=== PATIENT | male | born 1945 | race Caucasian/White ===

== ENCOUNTER → 2016-11-25 | Outpatient (CLI) | payer OTHER, BC ==
[~2016-11-25] MED LIST: ALLO300T2 PO; CHOL20009 PO; CMD75 PO; FENO48TA9 PO; FRRG PO; FURO40TA3 PO; HYDR-4716 PO; INSDGIPEN SC; INSU70IN2 SC; LEVO112T2 PO; LISI-789 PO; METO50TA16 PO; MULT-589 PO; NVLGI7030 SC; NVLGIPEN SC; OMEG10007 PO; RXC5 PO; SIMV40TA2 PO; WARF10TA4 PO; WARF5TAB7 PO
[2016-11-25 13:12] LABS: BLOOD UREA NITROGEN 28 mg/dl (7-18); BUN/CREATININE RATIO 14.7 (10-20); CALCIUM 10.1 mg/dl (8.5-10.1); CARBON DIOXIDE 27 mmol/L (21-32); CHLORIDE 104 mmol/L (98-107); GLUCOSE 227 mg/dl (70-99); POTASSIUM 4.1 mmol/L (3.5-5.1); SODIUM 139 mmol/L (136-145)
[2016-11-25 13:31] LABS: ESTIMATED AVERAGE GLUCOSE 318 mg/dl; HA1C FLAG Normal (Normal)
== END | disposition home or self-care (01) ==
LOC: C.LABSPEC 12:13
PROVIDERS: ATTEND Internal Medicine
DX: I25.10 Atherosclerotic heart disease of native coronary artery without angina pectoris (principal); N18.9 Chronic kidney disease, unspecified; E11.22 Type 2 diabetes mellitus with diabetic chronic kidney disease; E11.65 Type 2 diabetes mellitus with hyperglycemia; E03.9 Hypothyroidism, unspecified

== ENCOUNTER → 2016-12-02 | Day surgery (SDC) | payer OTHER, BC ==
[2016-11-20 10:09] VITALS: Ht 185.4 cm; Wt 115.9 kg
--- NOTE | 2016-11-30 20:20 | HISTORY & PHYSICAL EXAMINATION ---
DATE OF ADMISSION: 12/02/2016 HISTORY OF PRESENT ILLNESS: A 70-year-old male scheduled to undergo right cataract surgery on 12/02/2016 at [facility]. The patient was seen in the office for his preoperative evaluation on 11/25/2016. His medical problems include: 1. Coronary artery disease with history of acute myocardial infarction in August of 2008. At that time, he presented with a new left bundle branch block and class 4 congestive heart failure. He also had atrial fibrillation with rapid ventricular response. He was transferred to [facility]. After his condition was stabilized, he underwent a cardiac catheterization. There was no evidence of any occlusive coronary artery disease that required any intervention. The patient was noted to have marked cardiomyopathy with an ejection fraction on his cardiac catheterization between 25-30%. A biventricular ICD was placed. He was medically treated. 2. Ischemic cardiomyopathy. 3. Atrial fibrillation. 4. Type 2 diabetes mellitus. Uncontrolled. Hyperglycemia. Issue related to his dietary precautions and taking his insulin on a regular basis. 5. Chronic kidney disease. 6. Hyperlipidemia. 7. History of gout. CURRENT MEDICATIONS: Include: 1. Novolin insulin 70/30, the dose of his insulin was just increased on 11/27/2016 to 80 units in the morning and 60 units in the evening. 2. Levothyroxine 112 mcg daily. 3. Coumadin 10 mg daily. 4. Hydralazine 25 mg twice a day. 5. Allopurinol 300 mg daily. 6. Furosemide 40 mg daily. 7. Fenofibrate 48 mg daily. 8. Simvastatin 40 mg daily. 9. Metoprolol tartrate 50 mg daily. 10. Lisinopril 2.5 mg daily. 11. Vitamin D 2000 international units daily. 12. Fish oil 1200 mg twice a day. Overall, he was doing well. He denied any headache. No dizziness, no lightheadedness. Denied any earache, sore throat or neck pain. No chest pain, pressure or tightness. No shortness of breath. No cough, no sputum, no hemoptysis. Denied any abdominal pain. No nausea, no vomiting. No problem with his bowel movements. His colonoscopy is up to date. Denied any urinary problem. Denied any pain in his back or extremities. SOCIAL HISTORY: He is for 20 years. He stopped smoking about 30 years ago. He did smoke 1 pack per day for about 20 years prior to that. He stopped drinking any alcohol 30 years ago. Denied any excessive coffee, tea or soft drinks. He is retired. 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 FAMILY HISTORY: His mother in her early 60s, she was diabetic with multiple complications. His father at age 80. Had colon cancer. He had 5 sisters and 2 brothers. One sister at age 54, had breast cancer. One sister at age 54, had asthma in her sleep. Children alive and well. ALLERGIES: None. CURRENT MEDICATIONS: As noted above. PHYSICAL EXAMINATION: GENERAL: Well developed, in no acute distress. His weight was 255.2 pounds, height 72.5 inches, BMI 34.14. VITAL SIGNS: Blood pressure 124/74, pulse 68, temperature 98.4. SKIN: Warm and dry. No rash. HEENT: Decreased vision related to his cataract. Has dentures. NECK: Supple. Nontender. No adenopathy, no thyromegaly. No JVD. Normal carotid pulses. No bruit. CHEST: Pacer defibrillator in place. HEART: Regular heart sounds. No evident murmur, rub, or gallop. LUNGS: Clear. ABDOMEN: Soft, nontender, without organomegaly or masses. He does have an umbilical hernia. BACK: No spinal or CVA tenderness. EXTREMITIES: No edema, clubbing, or cyanosis. He does have varicose veins. Absent right dorsalis pedis pulse. The rest of his pedal pulses were normal. NEUROLOGIC: He is alert and oriented. There is no evidence of any lateralized deficit. LABORATORY TESTS: Just done on 11/25/2016. His fasting glucose was 227, BUN 28, creatinine 1.9. Sodium 139, potassium 4.1, chloride 104, CO2 27. TSH 3.53, free T4 1.008. His hemoglobin A1c was markedly elevated to 12.7, just when the dose of his insulin was increased. Electrocardiogram was done and showed only a paced rhythm. ASSESSMENT: 1. Preoperative evaluation. 2. Right cataract, scheduled for surgery on 12/02/2016. 3. Coronary artery disease. 4. Ischemic cardiomyopathy. 5. Atrial fibrillation. 6. Pacer defibrillator in place. 7. Arterial hypertension. 8. Chronic kidney disease. 9. Hyperlipidemia. 10. Hypothyroidism. 11. Chronic anticoagulation with Coumadin. PLAN: 1. The patient is to continue his medications. He was already instructed that he should continue his levothyroxine, metoprolol, and lisinopril, the morning of his surgery. I also asked him to take only 30 units of insulin in the morning of his surgery. 2. All his medications will be resumed home after his surgery. 3. He was instructed not to discontinue his Coumadin. 4. I will see him in the office as scheduled.
[~2016-12-02] VITALS: Ht 185.4 cm; Wt 115.9 kg
[~2016-12-02] MED LIST changes: +500ML BSS 0.3ML EPI 1:1000PF IRRIG ONE; +ACETAMINOPHEN 325 MG TAB PO PRN; +AMVISC PLUS 0.8ML SYRINGE INT OCU ONE; +APR/25 PO; +ATROPINE SULFATE 0.1 MG/ML 5ML SYR IV PRN; +BSS FLUSH ONE; +EpHEDrine SULFATE INJ 50 MG/ML AMP IV PRN; +EpINEphrine INJ 1MG/ML AMP 1 MG/ML AMP ONE; +FENTANYL CITRATE INJ 50 MCG/1 ML 2 ML VIAL IV PRN; +FLUMAZENIL 0.1 MG/1 ML 10 ML VIAL IV PRN; -HYDR-4716 PO; +HYDROmorphone INJ 2 MG/ML SYR/VIAL IV PRN; +LABETALOL HCL IV 5 MG/ML 20ML IV PRN; +LACTATED RINGER'S 1000ML 500 ML IV SCH; +LIDOCAINE 3.5% OPH GEL PER APPLICATION CHARGE ONE; +LIDOCAINE HCL 1% MPF 2 ML VIAL ONE; +MEPERIDINE HCL 25 MG/ML CARP IV PRN; +MIDAZOLAM HCL 1 MG/ML 2ML VIAL ONE; +NALOXONE HCL 0.4 MG/1 ML VIAL/CARP IV PRN; +OCUCOAT 1 ML SOLN IO ONE; +ONDANSETRON INJ 2 MG/ML 2 ML VIAL IV PRN; +PHENYLEPHRINE 100MCG/ML 5ML SYR IV PRN; +PHENYLEPHRINE HCL 10% OP SOLN PER DROP CHARGE OPR SCH; +POVIDONE-IODINE OP SOLN 30 ML BTL ONE; +PROPARACAINE 0.5% OP SOLN PER DROP CHARGE OPR SCH; +SODIUM CHLORIDE 0.9% 500ML IV SCH; +TOBRAMYCIN/DEXAMETHASONE OPH OINT PER APPLN CHARGE ONE
[2016-12-02] MEDS: PHENYLEPHRINE HCL 2.5% OP SOLN PER DROP CHARGE OPR SCH ×2 (06:36→06:41)
[2016-12-02] MEDS: TROPICAMIDE 1% OP SOLN PER DROP CHARGE OPR SCH ×2 (06:37→06:42)
[2016-12-02] MEDS: CYCLOPENTOLATE HCL 1% OP SOLN PER DROP CHARGE OPR SCH ×2 (06:38→06:43)
[2016-12-02] MEDS: KETOROLAC 0.5% OP SOLN PER DROP CHARGE OPR SCH ×2 (06:39→06:44)
[2016-12-02] MEDS: GATIFLOXACIN OP SOLN PER DROP CHARGE OPR SCH ×2 (06:40→06:50)
--- NOTE | 2016-12-02 07:00 | History & Physical Bridge - SC ---
H&P Re-Evaluation Bridge Note: I have examined the patient, reviewed the History & Physical and in the interval since the performance of the History & Physical I have noted the following changes of clinical significance: Diagnosis: Right Cataract Procedure: Right Cataract Removal with Lens Implant No changes noted
--- NOTE | 2016-12-02 07:23 | [facility] Operative Report ---
Operative Report 1. PREOPERATIVE DIAGNOSIS: Cataract of the right eye. 2. POSTOPERATIVE DIAGNOSIS: Same. 3. PROCEDURE: Phacoemulsification with intraocular lens implantation of the right eye. SURGEON: Dr. Alex Peguero. ANESTHESIA: Topical Lidocaine gel, 1% Non- Preserved intracameral Lidocaine, and monitored intravenous sedation. INDICATIONS FOR THE PROCEDURE: The patient is a 70 - year-old male with a history of cataract of the right eye causing significant visual impairment. The details of the proposed procedure were explained to the patient who asked appropriate questions and following discussion of all risks, benefits and alternatives agreed to have the procedure done. 4. OPERATION AND FINDINGS: DESCRIPTION OF PROCEDURE: After informed consent was obtained, the patient was brought to the Operating Room at the [facility]. The patient was placed in a supine position and then the right eye was prepped and draped in the usual sterile fashion for intraocular surgery. A drop of topical Lidocaine gel was placed in the operative eye. A wire lid speculum was then placed in the fornices. A corneal paracentesis was then created temporally. The Non-Preserved Lidocaine was then instilled into the anterior chamber. The anterior chamber was then pressurized with viscoelastic. A 2.0 mm clear corneal incision was then created temporally. A cystotome was inserted into the anterior chamber and used to create a tear in the anterior lens capsule. This capsular tear was then used to create a small flap and the flap was dragged in a counterclockwise direction in order to create a continuous curvilinear capsulorrhexis. Hydrodissection was accomplished with balanced salt solution. Phacoemulsification of the lens nucleus was then performed in a standard [id number] technique. The phaco time was 29 seconds with an average power of 13 %. The remaining cortical material was removed using irrigation aspiration. The capsular bag was then filled with viscoelastic. A [employer] MI60L +22.5 diopters lens was then loaded into the injector and injected into the capsular bag. The remaining viscoelastic was removed with the irrigation aspiration handpiece. The wound was hydrated and then checked and found to be watertight. The intraocular pressure was checked and found to be adequate. The wire lid speculum was removed and the patient's face was cleaned and dried. TobraDex ointment was placed in the inferior fornix. The patient was discharged to the Recovery Room having tolerated the procedure well. There were no complications. The patient will be seen tomorrow in the office for follow-up. I attest to the content of the Intraoperative Record and any orders documented therein. Any exceptions are noted below.
--- NOTE | 2016-12-02 07:23 | Discharge Instructions-SurgCtr ---
Discharge Instructions Visit Reason for Visit: Cataract Right Eye Discharge Discharge Diagnosis / Problem: cataract Discharge Goals Goal(s): Improve function Activity Recommendations Activity Limitations: per Instructions/Follow-up section Anesthesia . Post Anesthesia Instructions: If you have had General Anesthesia or IV Sedation: * Do not drive today. * Resume driving when surgeon permits. * Do not make important decisions or sign legal documents today. * Call surgeon for: 1. Temperature elevations greater than 101 degrees F. 2. Uncontrollable pain. 3. Excessive bleeding. 4. Persistent nausea and vomiting. 5. Medication intolerance (nausea, vomiting or rash). * For nausea and vomiting use only clear liquids such as: tea, soda, bouillon until nausea subsides, then gradually increase diet as tolerated. * If you have any concerns or questions, call your surgeon's office. If physician is unavailable and it is an emergency, call 911 or go to the nearest emergency room. . Instructions / Follow-Up Instructions / Follow-Up ACTIVITY RECOMMENDATIONS: * No strenuous lifting, jogging or running for 4 days * No swimming or yard work for 1 week. * Limited bending is permitted, such as putting on shoes. RETURN TO SCHOOL/WORK: No work until seen by physician in office. MEDICATIONS: Resume previous medications unless instructed otherwise by your surgeon. This includes eye drops for glaucoma. Zymaxid/Gatifloxacin (miller cap) - one drop every 2 hours until bedtime Nevanac/Ilevro/Prolensa/Ketorolac (burgos cap) - one drop every 4 hours until bedtime Prednisolone (white/pink cap, SHAKE WELL) - one drop every 2 hours until bedtime Starting tomorrow - all 3 drops every 4 hours until seen in the office Optive drops - as needed for discomfort SPECIAL CARE INSTRUCTIONS: * Wear eyeshield when sleeping, for four nights. * You may wear your own glasses or sunglasses while awake. * You may read or watch TV * You may shower and wash your face, but be gentle around the eye and pat dry. * Blurry vision and mild irritation are normal. * Call office if pain is more severe or vision becomes dark at . FOLLOW UP VISIT: Follow-up with Dr Peguero tomorrow. Diet Recommendations Home Diet: resume previous diet Procedures Procedures Performed: Right Cataract Phacoemulsification With Intraocular Lens Implant Pending Studies Studies pending at discharge: no Medical Emergencies . Who to Call and When: Medical Emergencies: If at any time you feel your situation is an emergency, please call 911 immediately. . Non-Emergent Contact Non-Emergency issues call your: Director Of Primary Care . . "Provider Documentation" section prepared by Alex Peguero.
--- NOTE | 2016-12-02 07:42 | Anesthesia Progress Nt - [facility] ---
Anesthesia Post Op Note Date & Time Dec 02, 2016 at 07:42 Vital Signs Pain Intensity: 0 Vital Signs Past 12 Hours Date Time Temp Pulse Resp B/P Pulse Ox O2 Delivery O2 Flow Rate FiO2 12/02/16 07:22 36.5 78 16 146/83 97 Room Air 12/02/16 06:18 36.7 79 20 151/85 97 Room Air Notes Mental Status: alert / awake / arousable, participated in evaluation Pt Amnestic to Procedure: Yes Nausea / Vomiting: adequately controlled Pain: adequately controlled Airway Patency, RR, SpO2: stable & adequate BP & HR: stable & adequate Hydration State: stable & adequate Anesthetic Complications: no major complications apparent
[2016-12-02 07:56] VITALS: BP 138/74; PULSE 72; O2SAT 94
== END | disposition home or self-care (01) ==
LOC: X.SURG 06:01
PROVIDERS: ATTEND Ophthalmology
DX: H26.9 Unspecified cataract (principal); I48.91 Unspecified atrial fibrillation; I50.9 Heart failure, unspecified; I25.2 Old myocardial infarction; E11.22 Type 2 diabetes mellitus with diabetic chronic kidney disease; N18.9 Chronic kidney disease, unspecified; E78.5 Hyperlipidemia, unspecified; E03.9 Hypothyroidism, unspecified; I25.10 Atherosclerotic heart disease of native coronary artery without angina pectoris; I25.5 Ischemic cardiomyopathy; Z95.810 Presence of automatic (implantable) cardiac defibrillator; Z98.41 Cataract extraction status, right eye; Z79.01 Long term (current) use of anticoagulants; Z79.4 Long term (current) use of insulin; Z87.891 Personal history of nicotine dependence; Z83.3 Family history of diabetes mellitus; Z80.0 Family history of malignant neoplasm of digestive organs; Z68.34 Body mass index [BMI] 34.0-34.9, adult

== ENCOUNTER → 2016-12-16 | Outpatient (CLI) | payer OTHER, BC ==
[~2016-12-16] MED LIST changes: -500ML BSS 0.3ML EPI 1:1000PF IRRIG ONE; -ACETAMINOPHEN 325 MG TAB PO PRN; -AMVISC PLUS 0.8ML SYRINGE INT OCU ONE; -ATROPINE SULFATE 0.1 MG/ML 5ML SYR IV PRN; -BSS FLUSH ONE; -EpHEDrine SULFATE INJ 50 MG/ML AMP IV PRN; -EpINEphrine INJ 1MG/ML AMP 1 MG/ML AMP ONE; -FENTANYL CITRATE INJ 50 MCG/1 ML 2 ML VIAL IV PRN; -FLUMAZENIL 0.1 MG/1 ML 10 ML VIAL IV PRN; -HYDROmorphone INJ 2 MG/ML SYR/VIAL IV PRN; -LABETALOL HCL IV 5 MG/ML 20ML IV PRN; -LACTATED RINGER'S 1000ML 500 ML IV SCH; -LIDOCAINE 3.5% OPH GEL PER APPLICATION CHARGE ONE; -LIDOCAINE HCL 1% MPF 2 ML VIAL ONE; -MEPERIDINE HCL 25 MG/ML CARP IV PRN; -MIDAZOLAM HCL 1 MG/ML 2ML VIAL ONE; -NALOXONE HCL 0.4 MG/1 ML VIAL/CARP IV PRN; -OCUCOAT 1 ML SOLN IO ONE; -ONDANSETRON INJ 2 MG/ML 2 ML VIAL IV PRN; -PHENYLEPHRINE 100MCG/ML 5ML SYR IV PRN; -PHENYLEPHRINE HCL 10% OP SOLN PER DROP CHARGE OPR SCH; -POVIDONE-IODINE OP SOLN 30 ML BTL ONE; -PROPARACAINE 0.5% OP SOLN PER DROP CHARGE OPR SCH; -SODIUM CHLORIDE 0.9% 500ML IV SCH; -TOBRAMYCIN/DEXAMETHASONE OPH OINT PER APPLN CHARGE ONE
[2016-12-16 13:21] LABS: INR 2.1 (0.9-1.1); PROTHROMBIN TIME (PATIENT) 23.2 SECONDS (9.0-12.0)
== END | disposition home or self-care (01) ==
LOC: C.LABSPEC 12:26
PROVIDERS: ATTEND Internal Medicine
DX: I48.91 Unspecified atrial fibrillation (principal)

== ENCOUNTER 2017-01-03 12:36 | Inpatient (IN) | payer OTHER, BC ==
[~2017-01-03] VITALS: Ht 188 cm; Wt 118.0 kg
[~2017-01-03 12:36] MED LIST changes: -CMD75 PO; -FRRG PO; -INSDGIPEN SC; -INSU70IN2 SC; -MULT-589 PO; -NVLGIPEN SC; -RXC5 PO; -WARF10TA4 PO
[2017-01-03] MEDS ORDERED: MoRPHine SULFATE 10 MG/ML CARP/VIAL IV PRN (13:00)
[2017-01-03] MEDS ORDERED: SODIUM CHLORIDE 0.9% 1000ML 2,000 ML IV ONE (13:00)
[2017-01-03] MEDS ORDERED: ONDANSETRON INJ 2 MG/ML 2 ML VIAL IV PRN (13:00)
[2017-01-03] MEDS ORDERED: PIPERACILLIN/TAZOBACTAM 4.5 GM/100ML D5W IV STA (13:27)
[2017-01-03] MEDS ORDERED: VANCOMYCIN 1GM/270ML NSS IV STA (13:27)
[2017-01-03 13:55] LABS: HEMATOCRIT 35.9 % (42-52); MEAN CELL VOLUME 90.7 fL (80-100); MEAN CORPUSCULAR HEMOGLOBIN 32.3 pg (25-34); MEAN CORPUSCULAR HGB CONC 35.7 g/dl (32-36); MEAN PLATELET VOLUME 10.6 fL (7.4-10.4); PLATELET COUNT 372 K/uL (130-400); RED BLOOD COUNT 3.96 M/uL (4.7-6.1); WHITE BLOOD COUNT 16.96 K/uL (4.8-10.8)
[2017-01-03 14:16] LABS: BASO % 0.1 %; BASO ABS # 0.02 K/uL (0-0.2); COMPLETE YES; EOS % 0.1 %; IG% 0.5 %; LYMPH % 9.5 %; LYMPH ABS # 1.61 K/uL (1.2-3.4); MONO % 4.4 %; NEUT % 85.4 %
[2017-01-03 14:22] LABS: PARTIAL THROMBOPLASTIN RATIO 3.1; PROTHROMBIN TIME (PATIENT) > 100.0 SECONDS (9.0-12.0)
--- NOTE | 2017-01-03 14:26 | DIAGNOSTIC IMAGING REPORT ---
TWO VIEW CHEST CLINICAL HISTORY: Gangrene of the right foot. FINDINGS: AP and lateral chest radiographs are compared to study dated 09/13/2008. The examination is degraded by apical lordotic positioning and patient rotation. A 3-lead cardiac AICD partially secures the left upper chest. This is new from 2007. The heart is enlarged and there is atherosclerotic calcification of the thoracic aorta. The pulmonary vasculature is noncongested. Chronic interstitial thickening is unchanged. No airspace consolidation or large pleural effusion is identified. There is no pneumothorax. The skeletal structures are osteopenic. Degenerative change is noted throughout the thoracic spine. IMPRESSION: 1. Cardiomegaly and AICD. There is no radiographic evidence of congestive failure. 2. No airspace consolidation or pleural effusion is identified. Electronically signed by: Lee Pakrer M.D. 01/03/2017 2:25 PM Dictated Date/Time: 01/03/2017 2:23 PM
--- NOTE | 2017-01-03 14:29 | DIAGNOSTIC IMAGING REPORT ---
RIGHT FOOT 3 VIEWS CLINICAL HISTORY: Gangrene of the first toe. FINDINGS: 3 views of the right foot are obtained. No prior studies are available for comparison at the time of dictation. The skeletal structures are osteopenic. There is destructive change/fracture through the midshaft of the first distal phalanx. There is bony erosion with small distracted fragments involving the tuft of the first distal phalanx. The appearance is consistent with osteomyelitis. No additional fracture is seen. Arthritic change is identified at the first metatarsophalangeal joint. There is soft tissue edema seen throughout the imaged right lower extremity. Numerous foci of subcutaneous gas are identified. There is advanced atherosclerotic calcification of the regional arteries. IMPRESSION: 1. Findings are consistent with osteomyelitis involving the tuft of the first distal phalanx. 2. There is fracture and fragmentation seen through the midshaft of the first distal phalanx. 3. No additional foci of acute bony abnormality are identified. 4. There is diffuse soft tissue edema throughout the imaged right foot and ankle with significant subcutaneous gas identified. This likely represents cellulitis with a gas forming organism. If there is clinical concern for necrotizing fasciitis then emergent surgical consultation is advised. Electronically signed by: Lee Parker M.D. 01/03/2017 2:28 PM Dictated Date/Time: 01/03/2017 2:26 PM
[2017-01-03 14:37] LABS: INR > 8.0 (0.9-1.1)
[2017-01-03 14:48] LABS: BUN/CREATININE RATIO 23.7 (10-20); CALCIUM 9.7 mg/dl (8.5-10.1); CREATININE 2.3 mg/dl (0.60-1.40); POTASSIUM 4.1 mmol/L (3.5-5.1)
[2017-01-03 14:51] LABS: ALB/GLOB RATIO 0.4 (0.9-2)
[2017-01-03] MEDS ORDERED: WARF10TA4 PO (15:01)
[2017-01-03] MEDS ORDERED: INSU70IN2 SC (15:01)
--- NOTE | 2017-01-03 15:13 | EMERGENCY ROOM VISIT NOTE ---
History Report prepared by Damari: Gina Arevalo Under the Supervision of: Dr. Félix Parnell M.D. First contact with patient: 12:52 Chief Complaint: FOOT PAIN Stated Complaint: R FOOT PAIN History of Present Illness The patient is a 71 year old male who presents to the Emergency Room with complaints of worsening infection to his right foot that began one month ago. He currently rates his discomfort as an 8/10 in severity. 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 He states that he takes 80 units of insulin in the morning and 60 units of insulin in the evening. The patient states that he monitors his blood glucose closely, but his glucose levels have been elevated recently in the 200-300 mg/dL. He states that he first noticed a small area to his right great toe one month ago. The patient states that the area has been worsening, but he states that he thought he could manage it on his own. He notes pain, erythema, and edema to the area and numbness to his right great toe. He denies any history of neuropathy in his feet. The patient states that he has also been experiencing fever and chills occasionally for the past month and a decrease in appetite. He states that he has had difficulty ambulating secondary to the pain. He denies any abdominal pain, urinary symptoms, or abnormal bowel movements. Source of History: patient Onset: one month ago Position: foot (right) Symptom Intensity: 8/10 Quality: other (infection) Timing: worsening Associated Symptoms: + chills, + fevers, + numbness (right great toe) Note: Associated Symptoms: pain, swelling, and erythema to right foot. Review of Systems All systems have been listed, reviewed, and are negative other than those previously mentioned. Please see Additional Medical History Sheet. Past Medical & Surgical Medical Problems: (1) BILAT.PULM.EMBOLI, DM2 (2) Diabetes (3) Heart disease (4) Hypertension (5) Kidney disease Family History No pertinent family history. Social History Smoking Status: Never Smoker Smokeless Tobacco Use: No Marital Status: Housing Status: lives alone Occupation Status: retired Current/Historical Medications Scheduled Allopurinol (Zyloprim), 300 MG PO QAM Cholecalciferol (Vitamin D), 1 TAB PO QAM Fenofibrate (Tricor), 48 MG PO QAM Fish Oil ([place]-3), 1 CAP PO BID Furosemide (Lasix), 40 MG PO QAM Hydralazine HCl (Hydralazine HCl), 1 TAB PO BID Insulin Human Isophan/Regular (Novolin 70/30), 80 UNITS SC QAM Levothyroxine Sodium (Synthroid), 112 MCG PO QAM Lisinopril (Zestril), 1 TAB PO QAM Metoprolol Tartrate (Lopressor) (Lopressor), 50 MG PO BID Simvastatin (Zocor), 40 MG PO QAM Warfarin Sod (Jantoven), 10 MG PO DAILY Allergies Coded Allergies: No Known Allergies (Verified , 01/03/17) Physical Exam Vital Signs Date Time Temp Pulse Resp B/P Pulse Ox O2 Delivery O2 Flow Rate FiO2 01/03/17 16:29 107 20 161/86 91 Room Air 01/03/17 14:35 105 25 156/68 94 Room Air 01/03/17 13:31 109 01/03/17 13:12 93 Room Air 01/03/17 12:40 37.8 111 20 140/85 95 Room Air Physical Exam GENERAL: Patient awake, alert, oriented x 3. Patient follows commands. Patient does not appear toxic. Patient is adequately hydrated and well- nourished. SKIN: No erythema, pallor, cyanosis or rash HEENT: Normal head, pupils equal, reactive to light and accommodation. Mucous membranes are dry. Neck: Without adenopathy, no neck vein distention. LUNGS: Clear to auscultation. No wheezes, no rales, no rhonchi. HEART: Irregularly irregular rate without murmurs. ABDOMEN: No masses, no rebound, no hepatomegaly or splenomegaly. EXTREMITIES: Marked erythema of right foot. Gangrenous change to the right distal great toe. Malodorous smell. NEUROLOGIC: Decreased sensation to right great toe. Cranial nerves II-XII within normal limits. No gross motor function deficits. Medical Decision & Procedures ER Provider Diagnostic Interpretation: X ray results are stated below per my interpretation and the radiologist's interpretation. RIGHT FOOT 3 VIEWS CLINICAL HISTORY: Gangrene of the first toe. FINDINGS: 3 views of the right foot are obtained. No prior studies are available for comparison at the time of dictation. The skeletal structures are osteopenic. There is destructive change/fracture through the midshaft of the first distal phalanx. There is bony erosion with small distracted fragments involving the tuft of the first distal phalanx. The appearance is consistent with osteomyelitis. No additional fracture is seen. Arthritic change is identified at the first metatarsophalangeal joint. There is soft tissue edema seen throughout the imaged right lower extremity. Numerous foci of subcutaneous gas are identified. There is advanced atherosclerotic calcification of the regional arteries. IMPRESSION: 1. Findings are consistent with osteomyelitis involving the tuft of the first distal phalanx. 2. There is fracture and fragmentation seen through the midshaft of the first distal phalanx. 3. No additional foci of acute bony abnormality are identified. 4. There is diffuse soft tissue edema throughout the imaged right foot and ankle with significant subcutaneous gas identified. This likely represents cellulitis with a gas forming organism. If there is clinical concern for necrotizing fasciitis then emergent surgical consultation is advised. Electronically signed by: Lee Parker M.D. 01/03/2017 2:28 PM Dictated Date/Time: 01/03/2017 2:26 PM TWO VIEW CHEST CLINICAL HISTORY: Gangrene of the right foot. FINDINGS: AP and lateral chest radiographs are compared to study dated 09/13/2008. The examination is degraded by apical lordotic positioning and patient rotation. A 3-lead cardiac AICD partially secures the left upper chest. This is new from 2007. The heart is enlarged and there is atherosclerotic calcification of the thoracic aorta. The pulmonary vasculature is noncongested. Chronic interstitial thickening is unchanged. No airspace consolidation or large pleural effusion is identified. There is no pneumothorax. The skeletal structures are osteopenic. Degenerative change is noted throughout the thoracic spine. IMPRESSION: 1. Cardiomegaly and AICD. There is no radiographic evidence of congestive failure. 2. No airspace consolidation or pleural effusion is identified. Electronically signed by: Lee Parker M.D. 01/03/2017 2:25 PM Dictated Date/Time: 01/03/2017 2:23 PM Laboratory Results 01/03/17 13:44 Red Blood Count 3.96, Mean Corpuscular Volume 90.7, Mean Corpuscular Hemoglobin 32.3, Mean Corpuscular Hemoglobin Concent 35.7, Mean Platelet Volume 10.6, Neutrophils (%) (Auto) 85.4, Lymphocytes (%) (Auto) 9.5, Monocytes (%) (Auto) 4.4, Eosinophils (%) (Auto) 0.1, Basophils (%) (Auto) 0.1, Neutrophils # (Auto) 14.48, Lymphocytes # (Auto) 1.61, Monocytes # (Auto) 0.74, Eosinophils # (Auto) 0.02, Basophils # (Auto) 0.02 01/03/17 13:44 Test 01/03/17 13:44 White Blood Count 16.96 K/uL (4.8-10.8) Red Blood Count 3.96 M/uL (4.7-6.1) Hemoglobin 12.8 g/dL (14.0-18.0) Hematocrit 35.9 % (42-52) Mean Corpuscular Volume 90.7 fL (80-100) Mean Corpuscular Hemoglobin 32.3 pg (25-34) Mean Corpuscular Hemoglobin Concent 35.7 g/dl (32-36) Platelet Count 372 K/uL (130-400) Mean Platelet Volume 10.6 fL (7.4-10.4) Neutrophils (%) (Auto) 85.4 % Lymphocytes (%) (Auto) 9.5 % Monocytes (%) (Auto) 4.4 % Eosinophils (%) (Auto) 0.1 % Basophils (%) (Auto) 0.1 % Neutrophils # (Auto) 14.48 K/uL (1.4-6.5) Lymphocytes # (Auto) 1.61 K/uL (1.2-3.4) Monocytes # (Auto) 0.74 K/uL (0.11-0.59) Eosinophils # (Auto) 0.02 K/uL (0-0.5) Basophils # (Auto) 0.02 K/uL (0-0.2) RDW Standard Deviation 44.9 fL (36.4-46.3) RDW Coefficient of Variation 14.4 % (11.5-14.5) Immature Granulocyte % (Auto) 0.5 % Immature Granulocyte # (Auto) 0.09 K/uL (0.00-0.02) Prothrombin Time > 100.0 SECONDS Prothromb Time International Ratio > 8.0 (0.9-1.1) Activated Partial Thromboplast Time 80.8 SECONDS (21.0-31.0) Partial Thromboplastin Ratio 3.1 Anion Gap 13.0 mmol/L (3-11) Est Creatinine Clear Calc Drug Dose 40.2 ml/min Estimated GFR () 31.9 Estimated GFR (Non- 27.5 BUN/Creatinine Ratio 23.7 (10-20) Lactic Acid Level 1.3 mmol/L (0.4-2.0) Calcium Level 9.7 mg/dl (8.5-10.1) Total Bilirubin 0.4 mg/dl (0.2-1) Aspartate Amino Transf (AST/SGOT) 48 U/L (15-37) Alanine Aminotransferase (ALT/SGPT) 62 U/L (12-78) Alkaline Phosphatase 128 U/L (45-117) Total Protein 8.2 gm/dl (6.4-8.2) Albumin 2.4 gm/dl (3.4-5.0) Globulin 5.8 gm/dl (2.5-4.0) Albumin/Globulin Ratio 0.4 (0.9-2) Medications Administered Medications (Trade) Dose Ordered Sig/Natali Route Start Time Stop Time Status Last Admin Dose Admin Sodium Chloride (Nss 1000ml) 2,000 ml @ 999 mls/hr Q2H1M ONCE IV 01/03/17 13:00 01/03/17 15:00 DC 01/03/17 13:40 999 MLS/HR Morphine Sulfate (MoRPHine SULFATE INJ) 8 mg PRN PRN IV 01/03/17 13:00 01/17/17 12:59 01/03/17 13:41 8 MG Ondansetron HCl (Zofran Inj) 4 mg Q4H PRN IV 01/03/17 13:00 02/02/17 12:59 01/03/17 13:41 4 MG Vancomycin HCl (Vancomycin 1gm/ 270ml Nss) 1 gm NOW STAT IV 01/03/17 13:27 01/03/17 13:29 DC 01/03/17 14:46 1 GM Piperacillin Sod/ Tazobactam Sod (Zosyn Iv) 4.5 gm NOW STAT IV 01/03/17 13:27 01/03/17 13:29 DC 01/03/17 13:46 4.5 GM ECG Indication: other (infection) Rate (beats per minute): 124 Rhythm: other (ventricular paced) Findings: no acute ischemic change, no ectopy ED Course 1252: Past medical records reviewed. The patient was evaluated in room B5. A complete history and physical examination was performed. 1300: Ordered Zofran Inj 4 mg IV, Morphine Sulfate 8 mg IV, Sodium Chloride 2000 ml @ 999 mls/hr IV. 1327: Ordered Zosyn IV 4.5 gm IV, Vancomycin HCl 1 gm IV. 1506: After I reviewed the X-ray, I discussed the patient's case with the pharmacist. They state that the patient should be placed on Clindamycin in addition to his current antibiotics. 1515: Ordered Clindamycin Phosphate 900 mg/Dextrose 106 ml @ 100 mls/hr IV. 1523: I discussed the patients case with Dr. Shilpa Carvajal, Internal Medicine. He is going to evaluate the patient for further treatment. Medical Decision Nurses notes reviewed. Medical history sheet reviewed. Differential diagnosis includes but is not limited to: gangrene, cellulitis, diabetes out of control, dehydration, sepsis. Multiple labs come imaging and EKG were obtained. Please see above. Blood cultures are pending. The patient's white count is elevated. Blood sugar is elevated. His INR is markedly elevated. X-ray reveals gas and osteomyelitis on his foot. Lactic acid is not elevated. The patient has severe cellulitis with gangrenous findings at the end of his right great toe. The patient was started on Zosyn, vancomycin and clindamycin after cultures were obtained. I discussed care with Dr. Keller over the phone. I also discussed care with the patient and his . Consults Time Called: 1510 Consulting Physician: Dr. Shilpa Garrido, Internal Medicine Returned Call: 1523 I discussed the patients case with Dr. Shilpa Carvajal, Internal Medicine. He is going to evaluate the patient for further treatment. Impression Primary Impression: Cellulitis Additional Impressions: Diabetes mellitus out of control Warfarin-induced coagulopathy Renal insufficiency Osteomyelitis Scribe Attestation The scribe's documentation has been prepared under my direction and personally reviewed by me in its entirety. I confirm that the note above accurately reflects all work, treatment, procedures, and medical decision making performed by me. Departure Information Dispostion Being Evaluated By Hospitalist Referrals Aaron Peña M.D. (PCP) Problem Qualifiers
[2017-01-03] MEDS ORDERED: PHYTONADIONE INJ 5 MG in SODIUM CHLORIDE 0.9% 50ML 50 ML IV SCH (16:15)
[2017-01-03 17:14] LABS: MAGNESIUM 2.4 mg/dl (1.8-2.4)
[2017-01-03] MEDS ORDERED: ONDANSETRON INJ 8 MG in DEXTROSE 5% 50ML 50 ML IV PRN (17:15)
[2017-01-03] MEDS: SODIUM CHLORIDE 0.9% 1000ML 1,000 ML IV SCH (17:15)
[2017-01-03] MEDS ORDERED: VANCOMYCIN CONSULT ACTIVE PRN (17:30)
[2017-01-03] MEDS ORDERED: GLUCAGON FOR INJ 1 MG VIAL SQ PRN (17:30)
[2017-01-03] MEDS ORDERED: DEXTROSE 50% 50 ML SYR IV PRN (17:30)
[2017-01-03] MEDS ORDERED: PIPERACILL/TAZOBAC CONSULT ACTIVE PRN (17:30)
[2017-01-03] MEDS ORDERED: CLINDAMYCIN CONSULT ACTIVE PRN ×2 (17:30)
[2017-01-03] MEDS ORDERED: GLUCOSE 40% GEL 15 GM TUBE PO PRN (17:30)
[2017-01-03] MEDS ORDERED: GLUCOSE 10 TABS/TUBE PO PRN (17:30)
[2017-01-03] MEDS: CLINDAMYCIN IV 900 MG in DEXTROSE 5% ADD-VANTAGE 100ML 100 ML IV ONE ×2 (17:37→17:41)
[2017-01-03] MEDS ORDERED: VANCOMYCIN INJ 1,500 MG in SODIUM CHLORIDE 0.9% 500ML 500 ML IV SCH (20:00)
--- NOTE | 2017-01-03 20:09 | Pharmacy Progress Note ---
Pharmacy Antibiotic Consult Date of Service: Jan 03, 2017. Pharmacy Dosing Scope Pharmacy is consulted to initiate vancomycin, piperacillin/tazobactam, and clindamycin IV dosing therapy, order appropriate labs and adjust drug dose/ frequency. Subjective The patient is a 71 year old male admitted on Jan 03, 2017 at 17:02. Objective Height (Feet): 6 Height (Inches): 2.00 Weight (Kilograms): 118.000 Lab Results (24hrs): Laboratory Tests Test 01/03/17 13:44 BUN/Creatinine Ratio 23.7 Blood Urea Nitrogen 55 mg/dl Creatinine 2.30 mg/dl White Blood Count 16.96 K/uL Red Blood Count 3.96 M/uL Hemoglobin 12.8 g/dL Hematocrit 35.9 % Mean Corpuscular Volume 90.7 fL Mean Corpuscular Hemoglobin 32.3 pg Mean Corpuscular Hemoglobin Concent 35.7 g/dl Platelet Count 372 K/uL Mean Platelet Volume 10.6 fL Neutrophils (%) (Auto) 85.4 % Lymphocytes (%) (Auto) 9.5 % Monocytes (%) (Auto) 4.4 % Eosinophils (%) (Auto) 0.1 % Basophils (%) (Auto) 0.1 % Neutrophils # (Auto) 14.48 K/uL Lymphocytes # (Auto) 1.61 K/uL Monocytes # (Auto) 0.74 K/uL Eosinophils # (Auto) 0.02 K/uL Basophils # (Auto) 0.02 K/uL Micro Results: Item Value Date Time Blood Culture Received 01/03/17 1325 Blood Pending Blood Culture Received 01/03/17 1344 Blood Pending Assessment & Plan Assessment: * 71 y/o with uncontrolled diabetes presents with complains of a right toe wound for the psat month prior to admission. * Upon examination, foot X-ray reveals osteomyelitis involving the distal phalanx as well as cellulitis with gas forming organism * will treat for both skin/skin structure infection as well as possible necrotizing fascitis with broad-spectrum antibiotics * History of CKD - unsure of baseline creatinine Plan: * Treat with broad-spectrum antibiotics with * MRSA coverage (vancomycin) * Gram-negative/anaerobic coverage (piperacillin/tazobactam) * Anti-toxin coverage (clindamycin) Vancomycin: * Loading dose: 1000 mg IV X 1 dose (given in ED ~1445) * Give additional 1500 mg IV X 1 in addition to dose in ED to ~21mg/kg loading dose * Maintenance dose: to be determined based on SCr tomorrow AM * Goal trough level ~15-20mcg/mL Piperacillin/tazobactam: * Loading dose: 4.5 g IV x1 dose in ED (30 minute infusion) * Maintenance dose: 3.375 g IV every 8 hours (4 hour infusion) * no dose adjustment for CrCl above 20mL/min Clindamycin: * Loading dose: 900 mg IV x1 dose in ED * Maintenance dose: 900 mg IV every 8 hours x 48 hours for anti-toxin effect * no dose adjustment for CrCl Pharmacy will continue to follow and will adjust dose/frequency as necessary. Thank you
[2017-01-03 20:13] VITALS: BP 120/88; PULSE 92; TEMP 36.7; BMI 33.4
[2017-01-03] MEDS: PIPERACILL/TAZOBAC IV 3.375 GM in DEXTROSE 5% 100ML IV SCH (20:39)
[2017-01-03] MEDS: METOPROLOL TARTRATE 50 MG TAB PO SCH (20:43)
[2017-01-03] MEDS: INSULIN GLARGINE SOLOSTAR 100 UNITS/ML 3 ML PEN SC SCH (20:52)
[2017-01-03] MEDS: INSULIN ASPART 100 UNITS/ML 3 ML PEN SC SCH (20:56)
[2017-01-03 22:44] VITALS: O2SAT 93
--- NOTE | 2017-01-03 22:45 | DIAGNOSTIC IMAGING REPORT ---
ULTRASOUND RIGHT LOWER EXTREMITY ARTERIAL CLINICAL HISTORY: Gangrene of the right foot. COMPARISON STUDY: No priors. TECHNIQUE: Real-time, grayscale, and color Doppler sonography of the arteries of the right lower extremities performed from the inguinal crease to the foot. Ankle-brachial indices could not be assessed. The dorsalis pedis and posterior tibial arteries were noncompressible. Toe pressures could not be obtained. FINDINGS: Atherosclerotic plaque and irregularity are seen throughout the arteries of the right lower extremity. There are triphasic waveforms in the right common femoral artery with velocities measuring up to 102 cm/s. There are biphasic to triphasic waveforms throughout the right superficial femoral artery with velocities measuring up to 145 cm/s. The profunda femoris artery is patent with velocities measuring up to 80 cm/s. There are biphasic waveforms in the popliteal artery with velocities measuring up to 90 cm/s. There is 3-vessel runoff to the foot. There may be segmental occlusion of the peroneal artery, which is patent at the calf. Mildly elevated velocities are seen within the posterior tibial artery which measure up to 152 cm/s. Elevated velocities are also seen in the peroneal artery which measure up to 195 cm/s. Velocities in the anterior tibial artery measure up to 150 cm/s. Segments of the dorsalis pedis artery appear patent with velocities measuring up to 62 cm/s. IMPRESSION: 1. Peripheral vascular disease as above. 2. Elevated velocities are seen within all 3 calf vessels suggesting some degree of stenosis. 3. There may be segmental occlusions within the peroneal artery and the dorsalis pedis artery. 4. Ankle-brachial indices could not be calculated. Dictated: 01/03/2017 10:07 PM Transcribed: 01/03/2017 10:44 PM [email or web address] Electronically signed by: Lee Parker M.D. 01/03/2017 10:46 PM Dictated Date/Time: 01/03/2017 10:07 PM
[2017-01-03 23:05] VITALS: BP 147/80; PULSE 89; TEMP 36.9; O2SAT 94
[2017-01-03 23:06] LABS: MANUAL MICROSCOPIC REQUIRED? YES; URINE APPEARANCE SL CLOUDY (CLEAR); URINE BILIRUBIN NEG (NEG); URINE COLOR YELLOW; URINE NITRITE NEG (NEG); URINE PH 5.5 (4.5-7.5); URINE SPECIFIC GRAVITY 1.025 (1.000-1.030); UROBILINOGEN NEG (NEG)
[2017-01-03 23:07] LABS: REVIEW REQ? NO
[2017-01-03 23:28] LABS: URINE AMORPHOUS SEDIMENT PRESENT (NONE PRSENT); URINE BACTERIA 1+ (NEG)
[2017-01-03 23:29] LABS: URINE MUCUS PRESENT (NONE PRSENT); ZZUR CULT IF INDIC CLEAN CATCH YES
[2017-01-04] VITALS (14 sets, daily range): BP systolic 122–160; BP diastolic 67–94; PULSE 70–101; TEMP 36.6–38.3; O2SAT 90–98
[2017-01-04] MEDS: ACETAMINOPHEN 325 MG TAB PO PRN ×4 (00:05→23:40)
[2017-01-04] MEDS: CLINDAMYCIN IV 900 MG in DEXTROSE 5% ADD-VANTAGE 100ML 100 ML IV SCH ×3 (01:43→19:06)
--- NOTE | 2017-01-04 03:39 | HISTORY & PHYSICAL EXAMINATION ---
DATE OF ADMISSION: 01/03/2017 SUBJECTIVE: A 71-year-old male admitted through the Emergency Room with gangrene of his right first toe and right foot with marked cellulitis. HISTORY OF PRESENT ILLNESS: The patient with multiple medical problems including coronary artery disease, cardiomyopathy, atrial fibrillation and has a biventricular ICD and ischemic cardiomyopathy. He is diabetic. He is on insulin. He does have chronic kidney disease and hyperlipidemia. He also has a history of gout. The patient presented to the Emergency Room today complaining of severe pain in his right foot. He stated that the problem started about 4 weeks ago. He started developing pain and gradually developed seepage from his right first toe. Lately, he stated that drainage from his toe has really been very foul smelling. He has been trying to take care of it at home. He never mentioned it to the office. He thought that he could take care of it by himself. He has been rinsing it and applying a cream that he has at home. I am not really sure which one, but his symptoms have been gradually progressive. The last few days, he has not been eating or drinking and he was having severe pain, unable to walk. He noted severe drainage from his right first toe and swelling and redness of his entire foot going up to the lower third of his right lower leg. This is extremely surprising that he gets to this point with his obvious problem and the pain that he has been having the foul smelling discharge. The way he is feeling in general weak and tired and sweating and feverish. Usually the patient stops in the office at least 2-3 times a week. In the morning, the office opens at 8:30, he is usually there before that and waits until the office is opened because he has a question about the medication or he needs a refill or he has a question about his insurance coverage, so he has been in the office on multiple occasions over the last 3-4 weeks, but unfortunately he never mentioned that he had a problem to this magnitude. When I asked him why he did not mention it, he said because he was stubborn and he was going to take care of it by himself. This is the same story with his diabetes. Actually, his diabetes has never been controlled. Over many years now, his hemoglobin A1c was markedly elevated. He is not compliant with his medications. He has cut down the dose, stopped taking his insulin. The issue is with the cause of his insulin. We have tried multiple approaches to that problem but the cause could not be reduced beyond a certain point. We have given him samples from the office whenever we had them available, but unfortunately his compliance is not really to his favor and his last hemoglobin A1c was over 12%. The patient was seen in the Emergency Room by Dr. Parnell. He was noted to have severe gangrene of his right first toe. He was started on IV antibiotics with triple antibiotics including vancomycin, Zosyn and clindamycin. I saw the patient in the Emergency Room. He was admitted for further treatment. PAST MEDICAL HISTORY: 1. Coronary artery disease. He had an acute myocardial infarction in August of 2008. He presented to the new bundle branch block and a class 4 congestive heart failure. He also had atrial fibrillation with rapid ventricular response. He was transferred to [facility]. He underwent a cardiac catheterization once he was stable. He did not have any inclusive of coronary artery disease that required any intervention. He was noted to have an ischemic cardiomyopathy with an ejection fraction between 20 and 30%. A biventricular ICD was placed. He is chronically anticoagulated with Coumadin. His last INR was 2.1 about 2-1/2 weeks ago. 2. Ischemic cardiomyopathy. 3. Atrial fibrillation. 4. Type 2 diabetes mellitus. Uncontrolled. Compliance with medications and diet has been the major issue. 5. Chronic kidney disease. 6. Hyperlipidemia. 7. History of gout. SOCIAL HISTORY: He is for about 20 years. He stopped smoking about 30 years ago. He did smoke 1 pack per day for about 20 years. He stopped drinking alcohol about 30 years ago; he did drink excessively prior to that. No excessive coffee, tea or soft drinks. He is retired. 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 FAMILY HISTORY: His mother in her early 60s was diabetic with multiple complications. His father at age 80, had colon cancer. He has 5 sisters and 2 brothers. One sister had breast cancer at age 54; one sister at age 54, had asthma, and in her sleep. His children are alive and well. ALLERGIES: None. MEDICATIONS ON ADMISSION: All as noted on his home medication list. REVIEW OF SYSTEMS: He is quite uncomfortable because of the pain from his foot. He has been feeling feverish, sweating. Feeling nauseous. Poor appetite. He denied any headache. No dizziness. No chest pain or shortness of breath. No abdominal pain, no nausea, no vomiting. No problem with his bowel movements. No problem urinating. No back pain. Severe pain in his right lower leg and foot. PHYSICAL EXAMINATION: GENERAL: Well developed in no distress. His weight is 118 kg, height 188 cm, BMI 33.4. VITAL SIGNS: On arrival to the Emergency Room, his blood pressure was 140/85, pulse 111, respirations 20, temperature 37.8, oxygen saturation 95% on room air. SKIN: Warm and dry. No rash. HEENT: He is status post right cataract surgery done in November of this year. NECK: Supple. Nontender. No adenopathy, no thyromegaly. No JVD. Normal carotid pulses. No bruit. CHEST: Pacer defibrillator in place. HEART: Regular heart sounds. Monitor showing paced rhythm. No evident murmur, rub, or gallop. LUNGS: Clear. ABDOMEN: Soft, nontender, without organomegaly or masses. BACK: No spinal tenderness. EXTREMITIES: He has severe gangrene of his right first toe. He also has severe cellulitis of his right foot and the lower third of his right lower leg. He does have crepitation in his foot and around his toe. He does have good pedal pulses on the left side. He has good posterior tibialis pulse on the right side, but dorsalis pedis pulse on the right side is absent. NEUROLOGIC: He is alert and oriented. No evidence of any motor deficit. He does have evidence of peripheral neuropathy. LABORATORY TESTS: WBC count 16,960, hemoglobin 12.8, hematocrit 35.9, and platelet count 372,000. His prothrombin time was over 100 with an INR over 8. Sodium 132, potassium 4.1, chloride 97, CO2 22, BUN 55, creatinine 2.3, glucose 237. Lactic acid 1.3, calcium 9.7, magnesium 2.4, total bilirubin 0.4, AST 48, ALT 62, alkaline phosphatase 128, albumin 2.4. His electrocardiogram showed a paced rhythm. IMAGING STUDIES: Included an x-ray of his right foot. It showed evidence of osteomyelitis involving the tuft of his first the distal phalanx. There is a fracture and fragmentation seen through the mid shaft of the first distal phalanx. There is diffuse soft tissue edema throughout the imaged right foot and ankle with diffuse subcutaneous gas identification. His chest x-ray showed evidence of cardiomegaly. ICD in place. ASSESSMENT: 1. Gangrene, right first toe with osteomyelitis. 2. Severe cellulitis of the entire right foot and his right lower leg lower third. 3. Type 2 diabetes mellitus, not controlled. 4. Coronary artery disease. 5. Atrial fibrillation. 6. Hypercholesterolemia. 7. Chronic kidney disease. 8. History of gout. 9. Major compliance problem. PLAN: 1. The patient was admitted to medical bed. Resuscitation level 1. All his laboratory tests were ordered. An arterial Doppler of his right leg was ordered. He was started on antibiotics as noted above. Placed on sliding scale coverage for his diabetes. The plan at this time is to start treating his infection. Orthopedic consultation was requested. I expect that he will need amputation at least of his first toe, hoping that the treatment with IV antibiotic will help with the cellulitis and see what the extent of the damage is after that, but judging from the x-ray and the appearance of his foot and that bloody foul smelling discharge from his right toe, he will at least end up with an amputation of the right first toe. It is really surprising that he did let things go that far without mentioning. As noted, he is usually in the office multiple times a week for different questions and different issues. He thought that he could take care of this problem on his own. As noted above, there is always a problem with major issue related to his compliance and his insulin medication and compliance with taking it on a regular basis. I have looked up his hemoglobin A1c since at least 2010 and it really has never been in any range even close to being under control. His hemoglobin A1c has been as high as 12.9. It has been elevated for at least the last 8 years. I spoke with the patient, explained to him the findings and explained to him what needs to be done. His sister was also present with him in the Emergency Room.
[2017-01-04] MEDS: PIPERACILL/TAZOBAC IV 3.375 GM in DEXTROSE 5% 100ML IV SCH ×3 (04:06→20:28)
[2017-01-04] MEDS: SODIUM CHLORIDE 0.9% 1000ML 1,000 ML IV SCH ×3 (04:06→23:41)
[2017-01-04] MEDS: LEVOTHYROXINE 112 MCG TAB PO SCH (05:40)
[2017-01-04] MEDS ORDERED: DIPHTHERIA/TETANUS/PERTUSSIS 0.5 ML SYR/VIAL IM. ONE (06:30)
[2017-01-04 06:31] LABS: BASO % 0.1 %; BASO ABS # 0.01 K/uL (0-0.2); COMPLETE YES; EOS % 0.6 %; HEMATOCRIT 31.3 % (42-52); IG% 0.6 %; LYMPH % 7.4 %; LYMPH ABS # 1.18 K/uL (1.2-3.4); MEAN CELL VOLUME 94.8 fL (80-100); MEAN CORPUSCULAR HEMOGLOBIN 35.2 pg (25-34); MEAN CORPUSCULAR HGB CONC 37.1 g/dl (32-36); MEAN PLATELET VOLUME 10.2 fL (7.4-10.4); MONO % 11.7 %; NEUT % 79.6 %; PLATELET COUNT 369 K/uL (130-400); WHITE BLOOD COUNT 15.88 K/uL (4.8-10.8)
[2017-01-04 06:38] LABS: INR 2.7 (0.9-1.1); PROTHROMBIN TIME (PATIENT) 30.3 SECONDS (9.0-12.0)
[2017-01-04 07:06] LABS: BUN/CREATININE RATIO 22.5 (10-20); CREATININE 2.2 mg/dl (0.60-1.40); POTASSIUM 3.9 mmol/L (3.5-5.1)
[2017-01-04 07:09] LABS: ALB/GLOB RATIO 0.4 (0.9-2)
[2017-01-04] MEDS: OXYCODONE HCL IR 5 MG TAB (IMMEDIATE RELEASE) PO PRN ×3 (07:17→22:07)
[2017-01-04] MEDS ORDERED: PNEUMOCOCCAL ADMINISTRATION CHARGE ONE (08:00)
[2017-01-04] MEDS ORDERED: PHYTONADIONE INJ 2.5 MG in SODIUM CHLORIDE 0.9% 50ML 50 ML IV ONE ×2 (08:00→17:00)
[2017-01-04] MEDS ORDERED: PNEUMOCOCCAL POLYSACCHARIDES 25 MCG/0.5 ML VIAL/SYR IM. ONE (08:00)
[2017-01-04] MEDS: LISINOPRIL 2.5 MG TAB PO SCH (08:21)
[2017-01-04] MEDS: METOPROLOL TARTRATE 50 MG TAB PO SCH ×2 (08:21→20:35)
[2017-01-04] MEDS: SIMVASTATIN 40 MG TAB PO SCH (08:22)
[2017-01-04] MEDS: ALLOPURINOL 300 MG TAB PO SCH (08:22)
[2017-01-04] MEDS: INSULIN ASPART 100 UNITS/ML 3 ML PEN SC SCH ×4 (08:52→20:43)
[2017-01-04] MEDS: INSULIN GLARGINE SOLOSTAR 100 UNITS/ML 3 ML PEN SC SCH ×2 (08:53→20:48)
--- NOTE | 2017-01-04 09:14 | Pharmacy Progress Note ---
Pharmacy Antibiotic Prog Note Date of Service: Jan 04, 2017. Subjective: The patient received VANCOMYCIN 2500mg IV over 2 doses yesterday for a total loading dose of ~21mg/kg. Objective: Height (Feet): 6 Height (Inches): 2.00 Weight (Kilograms): 118.000 Lab Results (24hrs): Laboratory Tests Test 01/03/17 13:44 01/04/17 06:06 BUN/Creatinine Ratio 23.7 22.5 Blood Urea Nitrogen 55 mg/dl 50 mg/dl Creatinine 2.30 mg/dl 2.20 mg/dl White Blood Count 16.96 K/uL 15.88 K/uL Red Blood Count 3.96 M/uL 3.30 M/uL Hemoglobin 12.8 g/dL 11.6 g/dL Hematocrit 35.9 % 31.3 % Mean Corpuscular Volume 90.7 fL 94.8 fL Mean Corpuscular Hemoglobin 32.3 pg 35.2 pg Mean Corpuscular Hemoglobin Concent 35.7 g/dl 37.1 g/dl Platelet Count 372 K/uL 369 K/uL Mean Platelet Volume 10.6 fL 10.2 fL Neutrophils (%) (Auto) 85.4 % 79.6 % Lymphocytes (%) (Auto) 9.5 % 7.4 % Monocytes (%) (Auto) 4.4 % 11.7 % Eosinophils (%) (Auto) 0.1 % 0.6 % Basophils (%) (Auto) 0.1 % 0.1 % Neutrophils # (Auto) 14.48 K/uL 12.65 K/uL Lymphocytes # (Auto) 1.61 K/uL 1.18 K/uL Monocytes # (Auto) 0.74 K/uL 1.86 K/uL Eosinophils # (Auto) 0.02 K/uL 0.09 K/uL Basophils # (Auto) 0.02 K/uL 0.01 K/uL Assessment & Plan: Follow-up note addressing maintenance VANCOMYCIN dosing: * Patient received VANCOMYCIN 1000mg + 1500mg for a total loading dose of 2500mg (21mg/kg) IV x 1 yesterday. * SCr remains relatively unchanged this morning (was 2.3 yesterday, 2.2 today), baseline SCr unknown. * Will start VANCOMYCIN 1600mg (13.5mg/kg) IV q20h (based on an estimated t1/2 of ~18 hours). * Goal trough level estimate: between 15 - 20 mcg/mL. * Trough level has been ordered for: @ 0530, however will reassess renal function daily and adjust dose as needed. Pharmacy will continue to follow and will adjust dose/frequency as necessary. Thank you
[2017-01-04] MEDS: VANCOMYCIN INJ 1,600 MG in SODIUM CHLORIDE 0.9% 500ML 500 ML IV SCH (13:39)
--- NOTE | 2017-01-04 14:44 | PROGRESS NOTE ---
DATE: 01/04/2017 SUBJECTIVE: A 71-year-old male admitted with: 1. Gangrene of his right first toe. 2. Severe cellulitis involving his entire right foot and lower third of his right lower leg. 3. Coronary artery disease. 4. Cardiomyopathy. 5. Atrial fibrillation. 6. Type 2 diabetes mellitus. Uncontrolled. 7. Chronic kidney disease. The patient was admitted. Cultures were done. He was started on IV antibiotic with Zosyn, vancomycin and clindamycin. The patient is resting. He still has recurrent pain. He is requiring pain medication. He denied any headache, no dizziness, no lightheadedness. Denied any chest pain. No shortness of breath. No abdominal pain. Poor appetite. No nausea, no vomiting. No problem with his bowel movements. No problem urinating. No back pain. He is still complaining of pain in his right foot. PHYSICAL EXAMINATION: GENERAL: Well developed in no distress. VITAL SIGNS: Blood pressure 134/72, pulse 86, respirations 16, temperature 36.9, oxygen saturation 94% on room air. SKIN: Warm and dry. No rash. HEENT: No mucosal abnormality. NECK: No JVD. No adenopathy. CHEST: ICD in place. HEART: Regular heart sounds. LUNGS: Clear. ABDOMEN: Soft, nontender. BACK: No spinal tenderness. EXTREMITIES: Gangrenous right first toe. Severe cellulitis of the right foot and lower leg. LABORATORY TESTS: WBC count 15,880, hemoglobin 11.6, hematocrit 31.3, platelet count 369,000. Prothrombin time 30.3, INR 2.7. Sodium 136, potassium 3.9, chloride 102, CO2 22, BUN 50, creatinine 2.2, glucose 138, calcium 9.0, total bilirubin 0.8, AST 122, ALT 95, alkaline phosphatase 127, total protein 7.2, albumin 1.9, globulin 5.3. Cultures are still pending. His arterial Doppler of the right leg showed evidence of peripheral arterial disease. There was a degree of stenosis of all 3 calf vessels. Suspected occlusions within the peroneal and the dorsalis pedis arteries were also noted. Keeping in mind on examination, I could feel his posterior tibialis pulses, but I cannot feel his dorsalis pedis pulses. ASSESSMENT: 1. Gangrene, right first toe. 2. Severe cellulitis of the right foot and lower third of his right lower leg. 3. Coronary artery disease. 4. Known cardiomyopathy. 5. Atrial fibrillation. 6. Type 2 diabetes mellitus. Uncontrolled. 7. Prolonged elevation of his INR related to his acute illness. The patient still denies taking any nonsteroidal anti-inflammatory medications, but his prothrombin time INR is down to 2.7. PLAN: 1. Continue his IV antibiotics. 2. Orthopedic consultation requested from Dr. Elfego Napoles. 3. Cardiology consultation was also requested. He sees Dr. Dante Simmons. Dr. Stanford Thomas is regional dedicated truck driver and I spoke with him. 4. Will proceed with the treatment. As suspected patient will most likely need amputation of his right first toe, I am not really sure at this point whether amputation is going to be any more extensive than that. I am hoping that with the treatment of the infection, we will have a better appreciation of what needs to be done. 5. I did give him a dose of vitamin K 2.5 mg IV. 6. I will recheck his prothrombin time this afternoon. 7. Continuing to monitor his renal function.
--- NOTE | 2017-01-04 16:12 | CARDIOLOGY CONSULTATION ---
DATE OF CONSULTATION: 01/04/2017 CONSULTATION FOR: Aaron Keller MD REASON FOR CONSULTATION: Preoperative evaluation for toe amputation. HISTORY OF PRESENT ILLNESS: This is a 71-year-old male patient who is usually followed by Dr. Simmons. He has a history of a nonischemic cardiomyopathy. He was in his usual state of health and then came in through the Emergency Department with cellulitis of the right foot with drainage from his toe. He is now admitted for antibiotics and possible debridement and amputation. ALLERGIES: No known medical allergies. PAST MEDICAL HISTORY: The patient has a history of coronary artery disease; however, the degree of coronary artery disease did not explain his presentation with cardiomyopathy and he is felt to have a nonischemic cardiomyopathy. He has a biventricular ICD in place. The patient states that he received this device in 2007; however, he is not a good historian and he may have received a device before the 2007 device which is now biventricular pacemaker. Although it is not indicated in the record, he may have had a cardiac arrest and had the original ICD implanted as a secondary prevention. At the time of the implant in 2007, his estimated left ventricular ejection fraction was 20-30%. More recently, the patient had a repeat echocardiogram through our clinic in July 2016, which estimated left ventricular ejection fraction to be 50-54%. He has not had any hospital admissions recently for heart failure. He does have a history of atrial fibrillation and type 2 diabetes. He has chronic kidney disease for which he follows with nephropathy. He has a history of hyperlipidemia and gout. SOCIAL HISTORY: He is . He stopped smoking approximately 30 years ago. FAMILY MEDICAL HISTORY: Noncontributory. REVIEW OF SYSTEMS: A 10-point review of systems is negative except for the history of chief complaint. PHYSICAL EXAMINATION: GENERAL: He is alert and oriented. VITAL SIGNS: He is currently afebrile, blood pressure is 130/80, pulse is regular at 100 beats per minute. HEENT: Normocephalic. Pupils are equal and reactive to light. Mucous membranes are moist. NECK: The neck veins are flat. Carotids have good upstrokes bilaterally without bruits. Thyroid is nonpalpable chest. LUNGS: Clear to auscultation bilaterally. CARDIOVASCULAR: Heart has a regular rhythm. Normal S1, S2. No S3, S4. No cardiac rubs or murmurs. GASTROINTESTINAL: Abdomen is soft, nontender without organomegaly. EXTREMITIES: Have gangrenous right foot. There is no cyanosis or digit clubbing. LABORATORY DATA: WBC count is 16.9, hemoglobin is 12.8, and creatinine is 2.3. IMPRESSION: 1. Gangrene of the right first toe with osteomyelitis. 2. Cellulitis of the right foot. 3. Nonischemic cardiomyopathy. 4. Normal left ventricular function by echocardiography in July of 2016 with an estimated left ventricular ejection fraction of 50-54%. 5. Biventricular implantable cardioverter defibrillator. 6. Chronic kidney disease. 7. Atrial fibrillation. RECOMMENDATIONS: The patient is currently clinically stable and I believe he may proceed to surgery with an accepted low risk of cardiovascular event. I would continue his current cardiac medications. We will follow along during his hospital stay.
[2017-01-04 16:26] LABS: INR 2.2 (0.9-1.1); PROTHROMBIN TIME (PATIENT) 23.9 SECONDS (9.0-12.0)
[2017-01-05] VITALS (12 sets, daily range): BP systolic 120–178; BP diastolic 65–93; PULSE 78–108; TEMP 36.6–37.2; O2SAT 82–96; Ht 188 cm; Wt 118.0 kg
[2017-01-05] MEDS: CLINDAMYCIN IV 900 MG in DEXTROSE 5% ADD-VANTAGE 100ML 100 ML IV SCH ×2 (02:18→09:29)
[2017-01-05] MEDS: PIPERACILL/TAZOBAC IV 3.375 GM in DEXTROSE 5% 100ML IV SCH ×3 (04:09→20:28)
[2017-01-05] MEDS: ACETAMINOPHEN 325 MG TAB PO PRN ×2 (04:12→23:45)
[2017-01-05] MEDS: OXYCODONE HCL IR 5 MG TAB (IMMEDIATE RELEASE) PO PRN ×3 (04:13→23:44)
[2017-01-05] MEDS: LEVOTHYROXINE 112 MCG TAB PO SCH (05:53)
[2017-01-05 06:13] LABS: ESTIMATED AVERAGE GLUCOSE 295 mg/dl; HA1C FLAG Normal (Normal)
[2017-01-05 06:43] LABS: INR 1.7 (0.9-1.1); PROTHROMBIN TIME (PATIENT) 18.1 SECONDS (9.0-12.0)
[2017-01-05 06:51] LABS: BASO % 0.2 %; BASO ABS # 0.03 K/uL (0-0.2); COMPLETE YES; EOS % 1.2 %; HEMATOCRIT 30.1 % (42-52); IG% 0.5 %; LYMPH % 13.5 %; LYMPH ABS # 2.22 K/uL (1.2-3.4); MEAN CELL VOLUME 92.9 fL (80-100); MEAN CORPUSCULAR HEMOGLOBIN 32.7 pg (25-34); MEAN CORPUSCULAR HGB CONC 35.2 g/dl (32-36); MEAN PLATELET VOLUME 10.2 fL (7.4-10.4); MONO % 5.7 %; NEUT % 78.9 %; PLATELET COUNT 382 K/uL (130-400); RED BLOOD COUNT 3.24 M/uL (4.7-6.1); WHITE BLOOD COUNT 16.39 K/uL (4.8-10.8)
[2017-01-05 07:01] LABS: BUN/CREATININE RATIO 21.9 (10-20); CALCIUM 8.3 mg/dl (8.5-10.1); CREATININE 2.5 mg/dl (0.60-1.40); POTASSIUM 3.9 mmol/L (3.5-5.1)
--- NOTE | 2017-01-05 07:21 | CONSULTATION REPORT ---
DATE OF CONSULTATION: 01/04/2017 CHIEF COMPLAINT: Right foot pain, toe pain, cellulitis and admission for a diabetic foot ulcer. HISTORY OF PRESENT ILLNESS: I am seeing Mr. Warren in consultation secondary to gangrene, cellulitis of the right lower extremity and osteomyelitis, fairly significant involvement with the great toe on the right foot. Cellulitis extends from this foot towards his calf. He is a 71-year-old gentleman, well taken care of in the past. He has somewhat neglected himself over last month, thought he could do some self care and improve his foot but failed unfortunately. He had to come to the Emergency Room yesterday last evening because of significant pain. PAST MEDICAL HISTORY: Heart disease, AFib, ischemic cardiomyopathy, diabetes, hyperlipidemia, history of gout, kidney disease. SOCIAL HISTORY: , lives alone, prior smoker, no alcohol use. ALLERGIES: Negative. MEDICATIONS: Multiple medications. REVIEW OF SYSTEMS: Positive for some fevers, sweats, feeling of malaise and discomfort. No chest pain, shortness of breath. No abdominal discomfort. No diarrhea, constipation, mostly extremity difficulty as described. PHYSICAL EXAMINATION: GENERAL: He is in moderate distress, certainly concerned. He is alert, oriented. VITAL SIGNS: Blood pressure 130/80, pulse of 80, a slight fever, temperature 37.8. HEENT: Pupils react to light and accommodation. Ear, nose and throat clear. CARDIAC: Regular. LUNGS: Clear. ABDOMEN: Soft. EXTREMITIES: His right lower extremity demonstrates significant gangrene of the toe, completely black in great toe, slight progression in cellulitis, mild amount of drainage as well. LABORATORY DATA: White count 16.9, hemoglobin 12.8. X-rays demonstrate destruction of the distal phalanx of the left toe, osteomyelitis, and some soft tissue edema. ASSESSMENT: Delightful gentleman with gangrene and osteomyelitis of the right great toe. DISPOSITION: He is on IV antibiotics. We will allow that to take effect over the next 24 hours, approximately 48 hours. I anticipate surgery either late tomorrow which will be Thursday, more than likely on Thursday afternoon. It is nice to let the situation somewhat settle down a little bit with some conservative measures. The toe will demarcate itself and then more definitive surgery. I will follow him daily.
--- NOTE | 2017-01-05 07:55 | PROGRESS NOTE ---
DATE: 01/05/2017 SUBJECTIVE: A 71-year-old diabetic admitted with a right foot necrosis, osteomyelitis and gangrene. Some moderate pain. No real new complaints today. OBJECTIVE: VITAL SIGNS: Temperature is 36.6. Vital signs stable. GENERAL: Reveals a pleasant elderly male. He is lying in bed and looks pretty comfortable. EXTREMITIES: Examination of the right foot reveals obvious necrosis of his entire big toe and a purulent material backed out at back to the mid foot area. He has got cellulitis to just above the ankle area. He can dorsiflex and plantarflex his foot with minimal movement of his toes. Very foul smell to the foot. X-RAYS: X-rays of the foot revealed destruction of the great toe. Significant soft tissue swelling. LABORATORY DATA: White cell count 16.38, hemoglobin 10.6, hematocrit 30.1. INR is 1.7. ASSESSMENT: A 71-year-old male with multiple medical comorbidities with severe right foot gangrene, osteomyelitis, necrosis and infection. The infection extends in the soft tissues up to above the ankle. He has got gross purulence back to the mid foot area. There is no reasonable way to try and conserve this foot and patient's best option is a below knee amputation in my opinion. PLAN: I talked to him about treatment options. We are going to continue him on IV antibiotics today. We will have his INR come down to less than 1.5 and likely proceed with a below-knee amputation with my recommendation. He is going to think about it throughout the morning. We will proceed as above. Any questions can be directed to me at [phone]. [facility] [place] [facility]
[2017-01-05] MEDS: MoRPHine SULFATE 4 MG/ML 1 ML CARP\\VIAL IV PRN ×2 (08:06→10:27)
[2017-01-05] MEDS: LISINOPRIL 2.5 MG TAB PO SCH (08:31)
[2017-01-05] MEDS: ALLOPURINOL 300 MG TAB PO SCH (08:32)
[2017-01-05] MEDS: METOPROLOL TARTRATE 50 MG TAB PO SCH ×2 (08:32→20:56)
[2017-01-05] MEDS: SIMVASTATIN 40 MG TAB PO SCH (08:32)
[2017-01-05] MEDS: INSULIN ASPART 100 UNITS/ML 3 ML PEN SC SCH ×4 (08:36→21:06)
--- NOTE | 2017-01-05 08:36 | Clinical Documentation Query ---
QUERY 1 OF [address] CRISTINO ART, In your clinical opinion is this patient being managed for: ( ) Sepsis ( ) Other explanation of clinical findings (Please Explain) ( ) Unable to determine (Please Define) ( ) Need to Discuss (x ) Not Agree The medical record reflects the following clinical findings, treatment, and risk factors. Clinical Indicators: 71 yo male presented with fever 37.8, HR 111, WBC 16.96, anion gap 13. Treatment: pending blood cultures, 2L NSS bolus in ER then continuous fluids, IV vancomycin, IV zosyn, IV clindamycin, Ortho consult, pending surgical intervention Risk Factors: uncontrolled DM, osteomyelitis, gangrene QUERY 2 OF 3 In your clinical opinion is this patient being managed for: (x ) Gas gangrene with diabetes ( ) Other explanation of clinical findings (Please Explain) ( ) Unable to determine (Please Define) ( ) Need to Discuss ( ) Not Agree The medical record reflects the following clinical findings, treatment, and risk factors. Clinical Indicators: 71 yo male presenting with a worsening infection of his R foot. Described as marked erythema of R foot with gangrenous change to the R distal great toe and malodorous smell. H/P noted crepitation in his foot and around his toe. R foot xray showed is diffuse soft tissue edema throughout the imaged right foot and ankle with significant subcutaneous gas identified. This likely represents cellulitis with a gas forming organism. Treatment: Orthopedic consult, arterial doppler, IV zosyn, IV vancomycin and IV clindamycin, IV fluids, blood cx pending Risk Factors: uncontrolled diabetes Gas gangrene is an acute infection caused by a form of Clostridium. The subcutaneous tissue fills with gas and a serosanguinous exudate forms; this form of gangrene is sometimes referred to as "wet" gangrene. Signs and symptoms include: localized pain with large black sores subcutaneous emphysema/crepitus fever very noxious odor associated with the necrosis of the tissue Treatment: Treatment is usually excisional debridement with amputation necessary in many cases. IV antibiotics alone are not effective because they do not penetrate the necrotic muscle sufficiently to be effective. In addition to surgery and antibiotics,hyperbaric oxygen therapy is used to inhibit the growth/kill the anaerobic C. perfringens. The growth of C. perfrigens is inhibited under pressures above 9.5 kPa,so if started early, this condition can mostly be cured. QUERY 3 OF 3 In your clinical opinion is this patient being managed for: (x ) Acute kidney failure on CKD stage III ( ) Other explanation of clinical findings (Please Explain) ( ) Unable to determine (Please Define) ( ) Need to Discuss ( ) Not Agree The medical record reflects the following clinical findings, treatment, and risk factors. Clinical Indicators: Pt presented with Cr 2.3 which has trended up to Cr 2.5. GFR range of 24.9-29.1 since admission to hospital. Documentation also reflects pt with chronic kidney disease. GFR range 34.9-43.3 and Cr baseline range of 1.7-1.9 historically over the past 2 years. Treatment:monitor PRP's, IV fluids, Risk Factors: uncontrolled DM, cardiomyopathy, A fib, CAD, Acute Kidney Injury is defined as any of the following: o Increase in SCr by (>/=) 0.3 mg/dl within 48 hours; or o Increase in SCr to (>/=)1.5 times baseline, which is known or presumed to have occurred within the prior 7 days; or o Urine volume <0.5 ml/kg/h for 6 hours. Chronic Kidney Disease (CKD), stages 1-5. Documenting the stage of CKD will improve data integrity and will help clarify vague terms such as "renal insufficiency" or "chronic renal failure." The stages of CKD according to the [employer] are as follows: Stage I: GFR >90 Stage II: GFR 60-89 Stage III: GFR 30-59 Stage IV: GFR 15-29 Stage V: GFR <15 Please clarify and document your clinical opinion in the progress notes and discharge summary. Terms such as "probable", "suspected", "likely", "questionable", "possible", or "still to be ruled out" are acceptable. IF IN AGREEMENT, YOU MUST DOCUMENT ABOVE DIAGNOSTIC STATEMENT IN DAILY PROGRESS NOTES AND DISCHARGE SUMMARY. This document is not part of the patient's record. Thank You, Unique Doyle RN [phone]
[2017-01-05] MEDS: INSULIN GLARGINE SOLOSTAR 100 UNITS/ML 3 ML PEN SC SCH ×2 (08:37→21:05)
[2017-01-05] MEDS: SODIUM CHLORIDE 0.9% 1000ML 1,000 ML IV SCH ×2 (09:29→18:39)
--- NOTE | 2017-01-05 09:48 | Cardiology Follow-Up ---
Subjective General Date of Service: Jan 05, 2017. Chief Complaint: foot pain Pt evaluation today including: conversation w/ patient, physical exam, chart review, lab review, review of studies, review of inpatient medication list History of Present Illness Patient feeling ok. Notes right leg/foot pain. Denies chest pain, SOB, dizziness , palpitations. No fever, cough, chills. Allergies Coded Allergies: No Known Allergies (Verified , 01/03/17) Social History Smoking Status: Former Smoker Hx Tobacco Use In Past Year?: No (Per pt has not smoked in 35 years) Hx Alcohol Use - Type And Amou: No Hx Substance Use - Type And Am: No Problem List Medical Problems: (1) Cellulitis Status: Acute (2) Diabetes mellitus out of control Status: Acute (3) Osteomyelitis Status: Acute (4) Renal insufficiency Status: Acute (5) Warfarin-induced coagulopathy Status: Acute Review of Systems Respiratory: No cough, No dyspnea at rest, No dyspnea on exertion, No hemoptysis, No shortness of breath, No sputum, No wheezing Cardiac: No PND, No chest pain, No edema, No orthopnea, No palpitations Physical Exam Vital Signs Last Vital Signs Documentation Date Time Temp Pulse Resp B/P Pulse Ox O2 Delivery O2 Flow Rate FiO2 01/05/17 09:30 96 Nasal Cannula 01/05/17 08:16 36.6 78 12 120/78 01/05/17 07:06 2.0 Physical Exam Constitutional: General Apperance: overweight Level of Distress: NAD, acutely ill Psychiatric: Mental Status: active & alert Head: normocephalic Eyes: Pupils: PERRLA Neck: supple Lungs: Respiratory effort: no dyspnea Auscultation: no wheezing, no rales/crackles Cardiovascular: Heart Auscultation: RRR, II/ YOLANDA Abdomen: Bowel Sounds: normal Inspection & Palpation: soft, non-distended Extremities: no edema (left lower extremity), pertinent finding (right foot wrapped with evidence of erythema to mid gann.) Assessment and Plan Assessment and Plan IMPRESSION: 1. Gangrene of the right first toe with osteomyelitis. 2. Cellulitis of the right foot. 3. Nonischemic cardiomyopathy. Well compensated. 4. Normal left ventricular function by echocardiography in July of 2016 with an estimated left ventricular ejection fraction of 50-54%. 5. Biventricular implantable cardioverter defibrillator. 6. Acute on chronic Chronic kidney disease, with rising creatinine 7. Atrial fibrillation. Paroxysmal. Currnetly in NSR. PLAN: Plan for possible below knee amputation tomorrow for right toe/foot osteomyelitis. Hold coumadin. Hold lisinopril due rising creatinine. BP well controlled. Continue metoprolol. Discussed surgery with [employer] rep. Recommend magnet placed over BiV ICD during procedure for safety. Will discuss case with Dr. Thomas. Will follow. CARDIOLOGY ATTENDING ADDENDUM: The patient was seen and personally examined. Agree with Azra Medel PA-C's findings and plans as documented above. Unfortunately he will need and amputation. He is cleared for that surgery. Laboratory Results Last 24 Hours Test 01/04/17 11:57 01/04/17 16:02 01/04/17 16:42 01/04/17 20:39 Bedside Glucose 233 mg/dl 262 mg/dl 183 mg/dl Prothrombin Time 23.9 SECONDS Prothromb Time International Ratio 2.2 Test 01/05/17 05:55 01/05/17 07:36 White Blood Count 16.39 K/uL Red Blood Count 3.24 M/uL Hemoglobin 10.6 g/dL Hematocrit 30.1 % Mean Corpuscular Volume 92.9 fL Mean Corpuscular Hemoglobin 32.7 pg Mean Corpuscular Hemoglobin Concent 35.2 g/dl Platelet Count 382 K/uL Mean Platelet Volume 10.2 fL Neutrophils (%) (Auto) 78.9 % Lymphocytes (%) (Auto) 13.5 % Monocytes (%) (Auto) 5.7 % Eosinophils (%) (Auto) 1.2 % Basophils (%) (Auto) 0.2 % Neutrophils # (Auto) 12.93 K/uL Lymphocytes # (Auto) 2.22 K/uL Monocytes # (Auto) 0.93 K/uL Eosinophils # (Auto) 0.20 K/uL Basophils # (Auto) 0.03 K/uL RDW Standard Deviation 47.0 fL RDW Coefficient of Variation 15.0 % Immature Granulocyte % (Auto) 0.5 % Immature Granulocyte # (Auto) 0.08 K/uL Prothrombin Time 18.1 SECONDS Prothromb Time International Ratio 1.7 Sodium Level 136 mmol/L Potassium Level 3.9 mmol/L Chloride Level 103 mmol/L Carbon Dioxide Level 21 mmol/L Anion Gap 12.0 mmol/L Blood Urea Nitrogen 55 mg/dl Creatinine 2.50 mg/dl Est Creatinine Clear Calc Drug Dose 37.0 ml/min Estimated GFR () 28.9 Estimated GFR (Non- 24.9 BUN/Creatinine Ratio 21.9 Random Glucose 116 mg/dl Calcium Level 8.3 mg/dl Bedside Glucose 121 mg/dl
[2017-01-05] MEDS: VANCOMYCIN INJ 1,600 MG in SODIUM CHLORIDE 0.9% 500ML 500 ML IV SCH (10:23)
[2017-01-05] MEDS ORDERED: PHYTONADIONE INJ 2.5 MG in SODIUM CHLORIDE 0.9% 50ML 50 ML IV ONE (10:50)
[2017-01-05] MEDS ORDERED: NURSING VERBAL MED ORDER ONE (12:30)
[2017-01-05] MEDS: MoRPHine SULFATE 10 MG/ML CARP/VIAL IV PRN (13:15)
--- NOTE | 2017-01-05 16:03 | Progress Note ---
Progress Note I have read and appreciate Dr. hTomas's note. The patient is a 71 year old male who is scheduled for a right BKA tomorrow. He has multiple medical problems including an TX in 2007. At that time he received an AICD/Pacemaker per the patient. He has a history of non-ischemic cardiomyopathy which has improved significantly with a current EF of 50-54%. He also has a history of CHF (none recently), A-fib, DM II and chronic kidney disease. He appears to be very pre- renal and I am not certain that this could not be corrected with appropriate IV fluids, especially now that his LV function is normal. His EKG shows biventricular pacing with a rate of 124. I spoke to Dr Thomas about this and he said they would arrange to have his pacemaker interrogated tomorrow. If his underlying rhythm is A-fib with RVR, this would be a contraindication for surgery until it is corrected. If he is just tachycardic and his underlying rhythm is sinus I would opt to treat him with IV fluids to see his response because his BUN is 55 with a creatinine of 2.5. His potassium is 3.9. We will wait until his pacemaker is interrogated before proceeding tomorrow.
--- NOTE | 2017-01-05 18:12 | PROGRESS NOTE ---
DATE: 01/05/2017 SUBJECTIVE: A 71-year-old male admitted with gangrene of his right foot. He has severe cellulitis extending to the lower third of his right lower leg. His medical problems also include coronary artery disease, atrial fibrillation, hypercholesterolemia, chronic kidney disease, gout and he has an ICD in place. The patient was admitted. Cultures were done. He was started on IV antibiotics. He was seen in orthopedic consultation by Dr. Esparza. He is also seen in cardiology consultation by Dr. Thomas. The patient was seen this morning by Dr. Napoles. Dr. Napoles recommending having a BKA done and tentatively scheduled for tomorrow. From a cardiac standpoint, Dr. Thomas felt that his cardiac status is stable. Apparently he was seen by anesthesia this afternoon and there is a concern about his rhythm because his EKG on admission showed a rate of 124, but on all his records subsequently since then his heart rate has been 100 or less. I repeated his electrocardiogram this afternoon and still showing a paced rhythm and the rate was 99 beats per minute. The patient is quite upset about what needs to be done but this is the only option given the severity of the infection in his foot. He denied any headache or dizziness. No lightheadedness. No chest pain or shortness of breath. Poor appetite. He is very upset even to eat. No nausea, no vomiting. No problem with his bowel movements or urination. He has been having severe pain in his right foot throughout the day. I have increased his morphine dose. PHYSICAL EXAMINATION: GENERAL: Well developed, in no acute distress. VITAL SIGNS: Blood pressure 178/93, pulse 100, respirations 18, temperature 37.1, oxygen saturation 93% on room air. SKIN: Warm and dry. HEENT: No mucosal abnormality. NECK: No JVD. No adenopathy. HEART: Regular heart sounds. LUNGS: Clear. ABDOMEN: Soft, nontender. BACK: No spinal tenderness. EXTREMITIES: Gangrene of the right foot as noted. TODAY'S LABORATORY TESTS: WBC count 38905, hemoglobin 10.6, hematocrit 30.1, and platelet count 382,000. Sodium 136, potassium 3.9, chloride 103, CO2 21, BUN 55, creatinine 2.5. Glucose 168, calcium 8.3. As noted an electrocardiogram was done this afternoon showing the paced rhythm at 99 beats per minute. ASSESSMENT: 1. Gangrene, right foot. 2. Uncontrolled type 2 diabetes mellitus. 3. Coronary artery disease. 4. History of atrial fibrillation. 5. Chronic kidney disease with acute exacerbation related to his infection. 6. Pacer defibrillator in place. PLAN: 1. Continue IV fluid. 2. Continuing his IV antibiotics. 3. I spoke with Dr. Napoles this morning. Planning for surgery tomorrow. His INR this morning was 1.7. I gave him an additional dose of vitamin K 2.5 mg IV and will be repeating his prothrombin time this evening and tomorrow morning. I expect that it should be in good range to be safe for him to undergo his surgery tomorrow. 4. I also spoke with Dr. Thomas. He is asking that the pacemaker be interrogated and he is making arrangements for that. 5. Anticipating below the knee amputation tomorrow. Also repeating his laboratory tests in the morning. ARNAUD
[2017-01-05 18:41] LABS: INR 1.5 (0.9-1.1); PROTHROMBIN TIME (PATIENT) 16.4 SECONDS (9.0-12.0)
[2017-01-06] VITALS (15 sets, daily range): BP systolic 119–158; BP diastolic 65–89; PULSE 72–103; TEMP 36.6–37.2; O2SAT 92–97
[2017-01-06] MEDS ORDERED: LEVALBUTEROL 1.25MG/3ML NEB INH ONE
[2017-01-06] MEDS ORDERED: FUROSEMIDE INJ 20 MG in SYRINGE 0 ML IV ONE (00:15)
[2017-01-06] MEDS: SODIUM CHLORIDE 0.9% 1000ML 1,000 ML IV SCH ×3 (00:30→18:42)
[2017-01-06] MEDS: LEVALBUTEROL 1.25MG/3ML NEB INH SCH ×4 (02:14→19:54)
[2017-01-06] MEDS: PIPERACILL/TAZOBAC IV 3.375 GM in DEXTROSE 5% 100ML IV SCH ×3 (03:37→20:04)
[2017-01-06] MEDS: ACETAMINOPHEN 325 MG TAB PO PRN ×2 (03:42→10:31)
[2017-01-06] MEDS: OXYCODONE HCL IR 5 MG TAB (IMMEDIATE RELEASE) PO PRN ×3 (03:43→19:49)
[2017-01-06] MEDS ORDERED: VANCOMYCIN TROUGH SCH (05:30)
[2017-01-06 05:54] LABS: BASO % 0.1 %; BASO ABS # 0.02 K/uL (0-0.2); COMPLETE YES; EOS % 0.4 %; HEMATOCRIT 30.2 % (42-52); IG% 0.7 %; LYMPH % 6.8 %; LYMPH ABS # 1.22 K/uL (1.2-3.4); MEAN CORPUSCULAR HGB CONC 35.8 g/dl (32-36); MEAN PLATELET VOLUME 10.2 fL (7.4-10.4); MONO % 9.6 %; NEUT % 82.4 %; PLATELET COUNT 406 K/uL (130-400); RED BLOOD COUNT 3.18 M/uL (4.7-6.1); WHITE BLOOD COUNT 17.87 K/uL (4.8-10.8)
[2017-01-06] MEDS: LEVOTHYROXINE 112 MCG TAB PO SCH (05:58)
[2017-01-06 06:03] LABS: INR 1.4 (0.9-1.1); PROTHROMBIN TIME (PATIENT) 14.9 SECONDS (9.0-12.0)
[2017-01-06 06:26] LABS: BUN/CREATININE RATIO 19.8 (10-20); CALCIUM 8.3 mg/dl (8.5-10.1); CREATININE 2.4 mg/dl (0.60-1.40); POTASSIUM 4.4 mmol/L (3.5-5.1)
[2017-01-06] MEDS: VANCOMYCIN INJ 1,600 MG in SODIUM CHLORIDE 0.9% 500ML 500 ML IV SCH (06:33)
[2017-01-06] MEDS ORDERED: NURSING VERBAL MED ORDER ONE ×2 (07:00→08:45)
[2017-01-06] MEDS: METOPROLOL TARTRATE 50 MG TAB PO SCH ×2 (09:02→21:03)
[2017-01-06] MEDS: ALLOPURINOL 300 MG TAB PO SCH (09:02)
[2017-01-06] MEDS: SIMVASTATIN 40 MG TAB PO SCH (09:02)
[2017-01-06] MEDS: INSULIN GLARGINE SOLOSTAR 100 UNITS/ML 3 ML PEN SC SCH ×2 (09:04→21:22)
[2017-01-06] MEDS ORDERED: VANCOMYCIN IV ONE (09:15)
[2017-01-06] MEDS ORDERED: SODIUM CHLORIDE 0.9% IV ONE (09:15)
--- NOTE | 2017-01-06 09:18 | Pharmacy Progress Note ---
Pharmacy Antibiotic Prog Note Date of Service: Jan 06, 2017. Subjective: The patient is currently receiving vancomycin 1600 mg IV every 20 hours. The patient is currently on day # 4 of vancomycin IV therapy. Objective: Height (Feet): 6 Height (Inches): 2.00 Weight (Kilograms): 118.000 Lab Results (24hrs): Laboratory Tests Test 01/06/17 05:40 BUN/Creatinine Ratio 19.8 Blood Urea Nitrogen 47 mg/dl Creatinine 2.40 mg/dl White Blood Count 17.87 K/uL Red Blood Count 3.18 M/uL Hemoglobin 10.8 g/dL Hematocrit 30.2 % Mean Corpuscular Volume 95.0 fL Mean Corpuscular Hemoglobin 34.0 pg Mean Corpuscular Hemoglobin Concent 35.8 g/dl Platelet Count 406 K/uL Mean Platelet Volume 10.2 fL Neutrophils (%) (Auto) 82.4 % Lymphocytes (%) (Auto) 6.8 % Monocytes (%) (Auto) 9.6 % Eosinophils (%) (Auto) 0.4 % Basophils (%) (Auto) 0.1 % Neutrophils # (Auto) 14.73 K/uL Lymphocytes # (Auto) 1.22 K/uL Monocytes # (Auto) 1.71 K/uL Eosinophils # (Auto) 0.07 K/uL Basophils # (Auto) 0.02 K/uL Assessment & Plan: Assessment * 71 yo M with gangrene/osteomyelitis of foot, likely undergoing BKA today. Blood and urine cultures negative thus far. * SCr stable but still slightly elevated from baseline * Goal vancomycin trough 15-20 mcg/mL * Trough of 13.7 mcg/mL is slightly subtherapeutic. Would not normally change dose as patient is obese and would anticipate some accumulation 2nd BMI. However, since interval is currently at q20h will attempt to adjust regimen so patient can be on a q24h regimen as this patient may require IV antibiotics on discharge. * Will give small one-time dose now so patient can receive antibiotics in the mornings * Will increase dose to compensate for lengthening interval * Trough prior to 4th dose of new regimen Plan * Vancomycin 400 mg IV x1 now (in addition to 1600 mg already administered) * Adjust vancomycin to 2000 mg IV q24h, 1st dose tomorrow @ 1000 * Trough 01/09 @ 0930 Pharmacy will continue to follow and will adjust dose/frequency as necessary. Thank you
[2017-01-06] MEDS ORDERED: VANCOMYCIN INJ 2,000 MG in SODIUM CHLORIDE 0.9% 500ML 500 ML IV SCH (10:00)
[2017-01-06] MEDS: INSULIN ASPART 100 UNITS/ML 3 ML PEN SC SCH ×3 (12:15→21:21)
--- NOTE | 2017-01-06 12:16 | PROGRESS NOTE ---
DATE: 01/06/2017 FOLLOWUP VISIT SUBJECTIVE: The patient is a 71-year-old male with a history of coronary artery disease and a nonischemic cardiomyopathy. He is status post biventricular pacemaker ICD. He was admitted with a gangrenous right foot and will require a right BKA. He is scheduled to go into the OR later today. Yesterday, I was called by anesthesia regarding his admission EKG, where he is tachycardic; however, at that time, the patient was ill and had a cellulitis. After admission to the hospital and start of antibiotics, he has been stable and his heart rates have improved. His EKG this morning reveals sinus rhythm with V pacing and heart rate of 80 beats per minute. The patient has been hemodynamically stable since his admission. Yesterday due to the concern regarding his high heart rate on admission, I asked that the ICD to be interrogated by the company. Unfortunately, that order was not taken off. As of yet, it has not been completed, but the patient again is hemodynamically stable. OBJECTIVE: VITAL SIGNS: Blood pressure is 140/70 and pulse is regular at 76. He is afebrile. GENERAL: He is alert and oriented in no acute distress. HEENT: He is normocephalic. Pupils are equal and reactive to light. Extraocular muscles are intact bilaterally. NECK: The neck veins are flat. Carotids have good upstrokes bilaterally without bruits. Thyroid is nonpalpable. RESPIRATORY: Breath sounds are equal bilaterally and clear to auscultation. CARDIOVASCULAR: Heart has a regular rhythm. Normal S1 and S2. There is a systolic murmur along the apex of the heart. RESPIRATORY: Lungs are clear to auscultation bilaterally. GASTROINTESTINAL: Abdomen is soft and nontender without organomegaly. EXTREMITIES: The right foot and ankle are erythematous from cellulitis. NEUROLOGIC: Grossly intact. SKIN: Warm to touch. LYMPH NODES: Negative to palpation. LABORATORY DATA: WBC count is 7.9 and hemoglobin is 10.8. Creatinine is 2.4 and potassium is 4.4. Blood cultures are negative. IMPRESSION: 1. Gangrenous right foot. 2. Nonischemic cardiomyopathy. 3. Biventricular pacemaker ICD. 4. History of coronary artery disease. RECOMMENDATIONS: The patient has a gangrenous right foot and will require surgery regardless. He is currently optimally medically managed and I think he should proceed to surgery with an acceptable low risk of cardiovascular event. No additional cardiac testing will change that risk assessment. A magnet should be placed on the ICD during surgery. We would be happy to see the patient postoperatively if necessary.
[2017-01-06] MEDS ORDERED: HYDROmorphone INJ 2 MG/ML SYR/VIAL IV PRN (13:15)
[2017-01-06] MEDS ORDERED: PHENYLEPHRINE 100MCG/ML 5ML SYR IV PRN (13:15)
[2017-01-06] MEDS ORDERED: ONDANSETRON INJ 2 MG/ML 2 ML VIAL IV PRN ×2 (13:15→17:45)
[2017-01-06] MEDS ORDERED: ATROPINE SULFATE 0.1 MG/ML 5ML SYR IV PRN (13:15)
[2017-01-06] MEDS ORDERED: EpHEDrine SULFATE INJ 50 MG/ML AMP IV PRN (13:15)
--- NOTE | 2017-01-06 13:17 | History & Physical Bridge Note ---
H&P Re-Evaluation Bridge Note: I have examined the patient, reviewed the History & Physical and in the interval since the performance of the History & Physical I have noted the following changes of clinical significance: No changes noted
--- NOTE | 2017-01-06 13:36 | PROGRESS NOTE ---
DATE: 01/06/2017 SUBJECTIVE: A 71-year-old diabetic admitted with a necrotic gangrenous right foot. He is scheduled for an amputation later today. No new complaints. Just right leg pain. No chest pain or shortness of breath. Not feeling dizzy or lightheaded. OBJECTIVE: VITAL SIGNS: Temperature 36.8. Vital signs stable. GENERAL: Physical examination reveals a pleasant elderly male. He is sitting up in bed and looks comfortable. EXTREMITIES: Examination of the right leg reveals a necrotic foot, mid foot distally. He has got gross pus. He has got a cellulitis just above up to the mid leg area. Seems receded slightly over the past 24 hours. LABORATORY DATA: Hemoglobin 10.8, hematocrit 30.2 and white cell count 17.87. Electrolytes are stable. INR is 1.4. ASSESSMENT: A 71-year-old diabetic with a right necrotic and gangrenous right foot. He is scheduled for a below knee amputation later this afternoon. He has been seen by the cardiology and medicine service and cleared for surgery. He is certainly at risk, but he needs it is done. His white count is elevated consistent with his gross infection. PLAN: We will take him to the operating room and do a right below knee amputation today. All questions were answered. Discussed this with both the patient and his family. They understand and desire to proceed.
[2017-01-06] MEDS ORDERED: BUPIVACAINE 0.25% 30 ML VIAL ONE (14:29)
[2017-01-06] MEDS ORDERED: LIDOCAINE HCL 2% 2 ML VIAL (20MG/ML) ONE ×2 (14:33→14:47)
[2017-01-06] MEDS ORDERED: MIDAZOLAM HCL 1 MG/ML 2ML VIAL ONE ×2 (14:46→14:47)
[2017-01-06] MEDS ORDERED: PROPOFOL IV EMULSION 10 MG/ML 20 ML VIAL IV ONE (14:47)
[2017-01-06] MEDS ORDERED: FENTANYL CITRATE INJ 50 MCG/1 ML 2 ML VIAL ONE (14:48)
[2017-01-06] MEDS ORDERED: BUPIVACAINE/EPINEPHRINE 0.5% MPF 1:200,000 30 ML VIAL ONE (15:00)
[2017-01-06] MEDS ORDERED: BUPIVACAINE 0.5 % 5 MG/1 ML PF 10ML VIAL ONE (15:11)
[2017-01-06] MEDS ORDERED: PHENYLEPHRINE HCL INJ 10 MG/ML VIAL ONE (15:33)
--- NOTE | 2017-01-06 17:37 | [facility] Post Operative Brief Note ---
Immediate Operative Summary Operative Date Jan 06, 2017. Pre-Operative Diagnosis Necrotic Gangrenous Right Foot/Ankle Post-Operative Diagnosis Same as preop Procedure(s) Performed Right Below the Knee Amputation Surgeon Dr. Napoles Web Marketing Coordinator Surgeon(s) Luis Eduardo LUCAS Estimated Blood Loss 200 ml Findings Necrotic foot and ankle Fluids (cc crystalloids) 1500 cc Specimens A. Right leg below knee Drains None Anesthesia Spinal Complication(s) None Disposition Recovery Room / PACU
[2017-01-06] MEDS ORDERED: METOCLOPRAMIDE HCL INJ 5 MG/ML 2 ML VIAL IV PRN (17:45)
[2017-01-06] MEDS ORDERED: BISACODYL 10 MG SUPP PR PRN (17:45)
[2017-01-06] MEDS ORDERED: MAGNESIUM HYDROXIDE SUSP 30 ML UDC PO PRN (17:45)
[2017-01-06] MEDS ORDERED: ZOLPIDEM TARTRATE 5 MG TAB PO PRN (17:45)
[2017-01-06] MEDS ORDERED: DiphenhydrAMINE HCL 50 MG/ML VIAL IV PRN (17:45)
[2017-01-06] MEDS ORDERED: ALUMINUM/MAGNESIUM/SIMETH (MAALOX MAX) 30 ML UDC PO PRN (17:45)
--- NOTE | 2017-01-06 17:54 | Anesthesiology Progress Note ---
Anesthesia Post Op Note Date & Time Jan 06, 2017 at 17:53 Vital Signs Pain Intensity: 0 Vital Signs Past 12 Hours Date Time Temp Pulse Resp B/P Pulse Ox O2 Delivery O2 Flow Rate FiO2 01/06/17 17:40 91 22 142/72 96 Nasal Cannula 2 01/06/17 17:30 37.7 90 26 149/80 100 Mask 10 01/06/17 12:01 36.8 84 18 119/74 94 Nasal Cannula 3.0 01/06/17 09:00 76 148/72 01/06/17 07:33 75 16 95 Nasal Cannula 3.0 01/06/17 07:28 36.6 76 18 134/70 96 Nasal Cannula 3.0 01/06/17 07:10 Nasal Cannula 3.0 Notes Mental Status: alert / awake / arousable, participated in evaluation Pt Amnestic to Procedure: Yes Nausea / Vomiting: adequately controlled Pain: adequately controlled Airway Patency, RR, SpO2: stable & adequate BP & HR: stable & adequate Hydration State: stable & adequate Neuraxial Anesthesia: was administered, sensory block is resolving Anesthetic Complications: no major complications apparent The patient is doing well. Dr. Keller came to evaluate the patient in the PACU.
--- NOTE | 2017-01-06 17:57 | PROGRESS NOTE ---
DATE: 01/06/2017 HISTORY OF PRESENT ILLNESS: A 71-year-old male admitted with gangrene of his right foot. He has uncontrolled diabetes mellitus, coronary artery disease, history of atrial fibrillation, history of cardiomyopathy. The patient was admitted. He was started on IV antibiotics. He was seen in orthopedic consultation first by Dr. Esparza and then Dr. Napoles. The decision was to proceed with a below the knee amputation. Overall, his condition has remained stable, especially from a cardiac standpoint. During the night last night he became short of breath and he was wheezing. So I did cut down on his IV fluid. We gave him a dose of IV Lasix just 20 mg IV and started him on Xopenex high flow treatments. REVIEW OF SYSTEMS: This morning when I saw him, he was doing well, resting comfortably. He had no headache or dizziness. No respiratory distress, no shortness of breath, no chest pain, no nausea, no vomiting. No back pain. He was complaining of pain in his right leg, but he has been medicated with morphine sulfate. PHYSICAL EXAMINATION: GENERAL: Well developed, in no distress. VITAL SIGNS: Blood pressure 134/70, pulse 76 and irregular, respiration 18, temperature 36.6, oxygen saturation 96% on 3 liter oxygen by nasal cannula. SKIN: Warm and dry. No rash. HEENT: Oxygen cannula in place. No mucosal abnormality. NECK: No JVD. No adenopathy. CHEST: ICD in place. HEART: Regular heart sounds. LUNGS: Clear. ABDOMEN: Soft, nontender. EXTREMITIES: Gangrene of the right foot. TODAY'S LABORATORY TESTS: WBC count 17,870, hemoglobin 10.8, hematocrit 30.2, and platelet 406,000. Sodium 137, potassium 4.4, chloride 104, CO2 22, BUN 47, creatinine 2.4, glucose 169, calcium 8.3. ASSESSMENT: 1. Gangrene, right foot. 2. Coronary artery disease. 3. History of atrial fibrillation. 4. Pacer defibrillator in place. 5. Uncontrolled type 2 diabetes mellitus. PLAN: 1. Electrocardiogram was done and showed a paced rhythm with controlled rate. 2. Overall, his condition is stable. 3. Anticipating surgery for below the knee amputation today. His INR this morning was 1.4. 4. We will start working on getting him to rehab facility.
[2017-01-06] MEDS: MoRPHine SULFATE 10 MG/ML CARP/VIAL IV PRN (21:18)
--- NOTE | 2017-01-06 23:34 | OPERATIVE REPORT ---
DATE OF OPERATION: 01/06/2017 SURGEON: Dr. Elfego Napoles. PART MAKER: LANCE Barger PREOPERATIVE DIAGNOSIS: Right foot gangrene with severe necrosis and ascending cellulitis up above the ankle. POSTOPERATIVE DIAGNOSIS: Same. PROCEDURE PERFORMED: Right below knee amputation. COMPLICATIONS: None. ESTIMATED BLOOD LOSS: 200 mL FLUID REPLACEMENT: 1500 mL crystalloid fluid replacement. TOURNIQUET TIME: 37 minutes at 300 mmHg. ANESTHESIA: Spinal. DRAINS: None. SPECIMENS: Right leg for pathology. OPERATIVE INDICATIONS: The patient is a 71-year-old very residential, very poorly controlled diabetic and patient of Dr. Keller'stephanie who has had about 4 weeks' history of increasing right foot necrosis. He really did not seek treatment until just recently. He was admitted with cellulitis. He has gangrene of his great toe and extending up to the distal parts of his mid foot area. He had gross pus and purulence in this area and extremely foul odor of tissue necrosis. He had cellulitis up to just above his ankle area. The patient was admitted and placed on IV antibiotics. He underwent extensive medical evaluation. His INR had to be reversed and he is now indicated for below knee amputation. OPERATIVE PROCEDURE: The patient taken to the operating room, identified and placed on the operating table in supine position. All contact areas were appropriately padded. The patient has been receiving IV antibiotics on the floor on a scheduled basis. A spinal anesthetic had been implemented in the holding area along with a femoral nerve block. A Valencia catheter was placed. A right thigh tourniquet was then placed. The right leg was first scrubbed with Hibiclens. We then prepped it with ChloraPrep and then draped it in the usual sterile fashion. The right leg was then elevated. We exsanguinated from the calf up above the level of cellulitis. The tourniquet was placed at 300 mmHg. I then planned for a below knee amputation. Based on the cellulitic area, we made the bone cut 14 cm below the tibial plateau and then made the skin flaps 7 cm anterior and posterior. I made a fish mouth-type incision with 7 cm flaps. Full thickness flaps were developed through the subcutaneous tissues down to the fascia. The anterior compartment fascia and the skin was elevated to full thickness off the anterior aspect of the tibia in the anterior compartment. The posterior fascia was incised through the superficial posterior compartment. I then cauterized the anterior compartment approximately 1 cm distal to the osteotomy cut and allowed it to retract. The anterior tibial artery and vein were identified and suture ligated. The deep peroneal nerve was identified, traction was applied, and allowed to retract. The superficial peroneal nerve and the lateral compartment was also identified, traction was applied and I cut this sharply with a knife and allowed it to retract. The lateral compartment muscles were cut flush with the skin incision. After I cut the anterior compartment, I did make the osteotomy cut on the tibia. I then made the fibular osteotomy cut about 1.5 cm proximal to this. We then flexed the leg. I then cauterized the deep posterior compartment about 1 cm distal to the osteotomy cut. The posterior tibial artery and vein were identified and suture ligated with 2-0 silk sutures. The tibial nerve was identified, traction was applied and cut sharply and allowed to retract. I then removed the leg from the table. We then irrigated the wound extensively. I did elevate anterior cortex of the tibia. I then took an amputation knife and beveled the superficial posterior compartment. We spent quite a bit of time beveling this so I could bring the posterior flap up and fit nicely and attach to the anterior compartment fascia. Once this was complete, I irrigated the wound extensively. The tourniquet was let down for a tourniquet time of 37 minutes. Hemostasis was assured with use of electrocautery. Of note, his vessels were extremely calcified and even with suture ligating, they did seem to leak a little bit. We spent quite a bit of time obtaining good hemostasis. Once this was obtained, the posterior fascia was then rotated up and attached to the anterior fascia with 0 Vicryl suture in a [id number] fashion. The subcutaneous tissues were fairly poor quality, so I did not place any stitches in the subcutaneous tissues and just used skin sutures to approximate the remainder of the wound. The skin was approximated with 3-0 nylon sutures in a simple fashion. The leg was then cleaned and dried. A sterile dressing composed of Xeroform, 4 x 4s, ABD pad, Kerlix wraps, sterile cast padding, and an Blanco bandage, stump wrap were applied. The patient was then transferred to the recovery room in stable condition. The patient tolerated the procedure well with no complications. All needle and sponge counts were correct at the end of the operation. I attest to the content of the Intraoperative Record and any orders documented therein. Any exceptions are noted below. MTDD
[2017-01-07] VITALS (11 sets, daily range): BP systolic 125–169; BP diastolic 54–82; PULSE 72–100; TEMP 36.4–36.9; O2SAT 90–95
[2017-01-07] MEDS: ACETAMINOPHEN 325 MG TAB PO PRN (00:03)
[2017-01-07] MEDS: MoRPHine SULFATE 10 MG/ML CARP/VIAL IV PRN ×3 (00:04→18:38)
[2017-01-07] MEDS: DOCUSATE SODIUM 100 MG CAP PO SCH ×3 (01:08→20:44)
[2017-01-07] MEDS: FERROUS GLUCONATE 324 MG TAB PO SCH ×4 (01:08→18:47)
[2017-01-07] MEDS: ASPIRIN 325 MG ECTAB PO SCH ×3 (01:08→20:44)
[2017-01-07] MEDS: OXYCODONE HCL IR 5 MG TAB (IMMEDIATE RELEASE) PO PRN ×4 (01:10→17:37)
[2017-01-07] MEDS: LEVALBUTEROL 1.25MG/3ML NEB INH SCH ×4 (01:43→20:16)
[2017-01-07] MEDS: PIPERACILL/TAZOBAC IV 3.375 GM in DEXTROSE 5% 100ML IV SCH ×3 (04:17→19:58)
[2017-01-07] MEDS: SODIUM CHLORIDE 0.9% 1000ML 1,000 ML IV SCH ×2 (04:24→20:44)
[2017-01-07] MEDS: LEVOTHYROXINE 112 MCG TAB PO SCH (05:31)
[2017-01-07] MEDS ORDERED: NURSING DECISION MEDICATION ORDER SCH (05:45)
[2017-01-07] MEDS: METOPROLOL TARTRATE 50 MG TAB PO SCH ×2 (08:45→20:44)
[2017-01-07] MEDS: SIMVASTATIN 40 MG TAB PO SCH (08:48)
[2017-01-07] MEDS: ALLOPURINOL 300 MG TAB PO SCH (08:49)
[2017-01-07 08:57] LABS: BASO % 0.2 %; EOS % 1.7 %; HEMATOCRIT 28.2 % (42-52); IG% 0.7 %; LYMPH % 9.4 %; LYMPH ABS # 1.13 K/uL (1.2-3.4); MEAN CELL VOLUME 91.3 fL (80-100); MEAN CORPUSCULAR HEMOGLOBIN 30.7 pg (25-34); MEAN CORPUSCULAR HGB CONC 33.7 g/dl (32-36); MEAN PLATELET VOLUME 9.5 fL (7.4-10.4); MONO % 8.3 %; NEUT % 79.7 %; PLATELET COUNT 480 K/uL (130-400); RED BLOOD COUNT 3.09 M/uL (4.7-6.1); WHITE BLOOD COUNT 12.04 K/uL (4.8-10.8)
[2017-01-07 08:58] LABS: BASO ABS # 0.02 K/uL (0-0.2); COMPLETE YES
[2017-01-07] MEDS: INSULIN ASPART 100 UNITS/ML 3 ML PEN SC SCH ×4 (09:12→20:49)
[2017-01-07] MEDS: INSULIN GLARGINE SOLOSTAR 100 UNITS/ML 3 ML PEN SC SCH ×2 (09:13→20:48)
[2017-01-07 09:14] LABS: BUN/CREATININE RATIO 18.3 (10-20); CALCIUM 8.1 mg/dl (8.5-10.1); CREATININE 1.9 mg/dl (0.60-1.40); POTASSIUM 3.6 mmol/L (3.5-5.1)
[2017-01-07] MEDS: MULTIVITAMIN TAB PO SCH (09:21)
[2017-01-07] MEDS: PANTOprazole SOD 40 MG TAB PO SCH (09:22)
[2017-01-07] MEDS ORDERED: VANCOMYCIN INJ 1,800 MG in SODIUM CHLORIDE 0.9% 500ML 500 ML IV SCH (10:00)
[2017-01-07] MEDS: VANCOMYCIN INJ 2,000 MG in SODIUM CHLORIDE 0.9% 500ML 500 ML IV SCH (10:27)
[2017-01-07] MEDS: WARFARIN SOD 7.5 MG TAB PO SCH (16:51)
--- NOTE | 2017-01-07 19:37 | Discharge Instructions ---
Discharge Instructions Admission Reason for Admission: Gangrene R Foot, Dm2,Cad,A.fib Discharge Discharge Diagnosis / Problem: Right Below Knee Amputation for foot gangrene Discharge Goals Goal(s): Decrease discomfort, Improve function, Improve disease control, Therapeutic intervention Activity Recommendations Activity Level: Assistance Required Therapies: Physical Therapy, Occupational Therapy Weightbearing Status: Right non-weightbearing . Additional Information Patient informed of condition: Yes Advance Directives: No DNR: No Level of Care: Acute Rehab Communicable Disease: No Prognosis: Improving Instructions / Follow-Up Instructions / Follow-Up Keep dressing clean, dry, and intact. No weight on right leg Orthopedic follow-up 2 weeks from surgery date. Current Hospital Diet Patient's current hospital diet: AHA Diet (Heart Healthy), Diabetes Type 2 Diet Discharge Diet Recommended Diet: Diabetes Type 2 Diet Procedures Procedures Performed: Right Below the Knee Amputation Pending Studies Studies pending at discharge: no Laboratory Results Hemoglobin A1c Test 01/04/17 06:06 Range/Units Estimated Average Glucose 295 mg/dl Hemoglobin A1c 11.9 H 4.5-5.6 % Medical Emergencies . Who to Call and When: Medical Emergencies: If at any time you feel your situation is an emergency, please call 911 immediately. . Non-Emergent Contact Non-Emergency issues call your: Primary Care Provider . . "Provider Documentation" section prepared by Elfego Napoles. Core Measure Problem Core Measures: None
--- NOTE | 2017-01-07 19:52 | PROGRESS NOTE ---
DATE: 01/07/2017 SUBJECTIVE: A 71-year-old poorly controlled diabetic, postop day #1 from a right below knee amputation. He is doing pretty well. His pain is currently controlled. It was more severe earlier, but doing well now. He denies any chest pain or shortness of breath. OBJECTIVE: VITAL SIGNS: Temperature 36.9. Vital signs are stable. EXTREMITIES: Examination of right lower extremity reveals the dressing to be clean, dry and intact. There is no significant drainage. LABORATORIES: Hemoglobin 9.5. Hematocrit 28.2. White cell count improved, at 12.04. ASSESSMENT: A 71-year-old gentleman, postoperative day #1 from right below knee amputation, doing pretty well. Pain is controlled. White count has improved. PLAN: We are going to leave his bandage on for 2 weeks and then assess his wound. He will need to keep all of his weight off this leg obviously. Recommend DVT prophylaxis including thigh-high TEDs, SCDs and aspirin if his kidneys can tolerate that. I would recommend 48 hours of IV antibiotics after surgery and then I think he can be taken off antibiotics as we should also remove the infectious source. I need to see him back in clinic in 2 weeks. He is acceptable for discharge at any time, medically stable. Any questions can be directed to me at [phone].
--- NOTE | 2017-01-07 20:47 | PROGRESS NOTE ---
DATE: 01/07/2017 A 71-year-old male, admitted with: 1. Gangrene of the right foot. 2. Uncontrolled diabetes mellitus. 3. Coronary artery disease. 4. History of atrial fibrillation. The patient was admitted. He was started on IV antibiotics. Orthopedic consultation was requested. He was seen by Dr. Napoles. Given the extent of gangrene of his right foot the recommendation was to proceed with a right below the knee amputation. The procedure was done yesterday. It was well-tolerated. The patient is complaining of pain at his stump and he is being medicated. He denied any headache or dizziness. No chest pain. His cardiac status remains stable. No shortness of breath. No nausea, no vomiting. No problem with his bowel movement or urination. PHYSICAL EXAMINATION: GENERAL: Well-developed, in no distress. VITAL SIGNS: Blood pressure 140/80, pulse 94, respirations 15, temperature 36.4 and oxygen saturation 94% on room air. SKIN: Warm and dry. No rash. HEENT: Completely unremarkable. NECK: Supple without adenopathy or thyromegaly. No JVD. HEART: Regular heart sounds. LUNGS: Clear. ABDOMEN: Soft and nontender. BACK: No spinal tenderness. EXTREMITIES: Status post right BKA. Surgical dressing is in place. TODAY'S LABORATORY TESTS: WBC count is down to 12,040, hemoglobin 9.5, hematocrit 28.2, platelet count 480,000. Sodium 138, potassium 3.6, chloride 106, CO2 21, BUN 35, creatinine 1.9, glucose 113 and calcium 8.1. ASSESSMENT: 1. Gangrene, right foot. 2. Status post right below the knee amputation. 3. Uncontrolled diabetes mellitus. 4. Coronary artery disease. 5. History of atrial fibrillation. PLAN: 1. Continuing the same medications. 2. Pain control. 3. Physical and occupation therapies. 4. The patient has been accepted to go to [facility]. We will proceed with the transfer as soon as he is medically stable. 5. I came back to see the patient this evening and I saw on his bedside table he has 4 or 5 different types of candies and cookies. He said that his family brought them to him and they are sugar free, but I tried to explain to him that if they are sugar free, but they are still not the good type for him given the calories and the carbohydrates. 6. We will continue with dietary instructions. 7. We will repeat his laboratory tests in the morning. His WBC count has significantly improved and his creatinine is also improving.
[2017-01-08] VITALS (11 sets, daily range): BP systolic 132–161; BP diastolic 74–86; PULSE 80–98; TEMP 36.6–36.9; O2SAT 90–98
[2017-01-08] MEDS: MoRPHine SULFATE 10 MG/ML CARP/VIAL IV PRN ×3 (00:41→21:07)
[2017-01-08] MEDS: LEVALBUTEROL 1.25MG/3ML NEB INH SCH ×4 (02:33→19:37)
[2017-01-08] MEDS: PIPERACILL/TAZOBAC IV 3.375 GM in DEXTROSE 5% 100ML IV SCH ×3 (04:16→21:10)
[2017-01-08] MEDS: LEVOTHYROXINE 112 MCG TAB PO SCH (06:06)
[2017-01-08 06:25] LABS: MEAN CELL VOLUME 88.5 fL (80-100); MEAN CORPUSCULAR HEMOGLOBIN 30.2 pg (25-34); MEAN CORPUSCULAR HGB CONC 34.1 g/dl (32-36); MEAN PLATELET VOLUME 9.1 fL (7.4-10.4); PLATELET COUNT 457 K/uL (130-400); RED BLOOD COUNT 3.05 M/uL (4.7-6.1); WHITE BLOOD COUNT 13.06 K/uL (4.8-10.8)
[2017-01-08 06:34] LABS: INR 1.3 (0.9-1.1); PROTHROMBIN TIME (PATIENT) 13.6 SECONDS (9.0-12.0)
[2017-01-08 06:55] LABS: BASO % 0.2 %; BASO ABS # 0.02 K/uL (0-0.2); COMPLETE YES; EOS % 1.8 %; IG% 0.6 %; LYMPH % 10.4 %; LYMPH ABS # 1.36 K/uL (1.2-3.4); MONO % 8.6 %; NEUT % 78.4 %
[2017-01-08 07:11] LABS: BUN/CREATININE RATIO 14.9 (10-20); CALCIUM 7.9 mg/dl (8.5-10.1); CREATININE 1.7 mg/dl (0.60-1.40); POTASSIUM 4.1 mmol/L (3.5-5.1)
--- NOTE | 2017-01-08 07:13 | PROGRESS NOTE ---
DATE: 01/08/2017 SUBJECTIVE: 71-year-old gentleman postop day 2 from a right below knee amputation for infection. He is doing pretty well. He says his pain comes and goes. He does describe a little burning pain in his leg. OBJECTIVE: VITAL SIGNS: Temperature 36.9. Vital signs stable. PHYSICAL EXAMINATION: EXTREMITIES: Examination of the right leg reveals the dressing to be clean, dry and intact. No drainage. LABORATORIES: Hemoglobin 9.2. Hematocrit 27.0. INR is 1.3. Electrolytes pending. ASSESSMENT: 71-year-old gentleman postop from a right below knee amputation, doing pretty well. Pain seems to be reasonably well controlled. PLAN: 1. DVT prophylaxis including thigh-high TEDs, SCDs, and he can be placed back on his Coumadin. 2. PT/OT. He is nonweightbearing right lower extremity. 3. Medical management as per Dr. Keller. 4. Antibiotics. I would recommend 48 hours of antibiotics post-surgery and then discontinue. 5. Disposition: He is orthopedically stable and acceptable for discharge any time after the 48 hours of antibiotics.
[2017-01-08] MEDS: INSULIN ASPART 100 UNITS/ML 3 ML PEN SC SCH ×4 (08:00→21:25)
[2017-01-08] MEDS: SIMVASTATIN 40 MG TAB PO SCH (09:22)
[2017-01-08] MEDS: ASPIRIN 325 MG ECTAB PO SCH ×2 (09:22→21:16)
[2017-01-08] MEDS: DOCUSATE SODIUM 100 MG CAP PO SCH ×2 (09:22→21:15)
[2017-01-08] MEDS: METOPROLOL TARTRATE 50 MG TAB PO SCH ×2 (09:22→21:14)
[2017-01-08] MEDS: FERROUS GLUCONATE 324 MG TAB PO SCH ×3 (09:22→18:27)
[2017-01-08] MEDS: PANTOprazole SOD 40 MG TAB PO SCH (09:22)
[2017-01-08] MEDS: MULTIVITAMIN TAB PO SCH (09:22)
[2017-01-08] MEDS: ALLOPURINOL 300 MG TAB PO SCH (09:23)
[2017-01-08] MEDS: INSULIN GLARGINE SOLOSTAR 100 UNITS/ML 3 ML PEN SC SCH ×2 (09:27→21:26)
[2017-01-08] MEDS: VANCOMYCIN INJ 2,000 MG in SODIUM CHLORIDE 0.9% 500ML 500 ML IV SCH (09:33)
[2017-01-08] MEDS: SODIUM CHLORIDE 0.9% 1000ML 1,000 ML IV SCH (09:33)
[2017-01-08] MEDS: OXYCODONE HCL IR 5 MG TAB (IMMEDIATE RELEASE) PO PRN ×2 (11:53→19:36)
[2017-01-08] MEDS: WARFARIN SOD 7.5 MG TAB PO SCH (15:35)
--- NOTE | 2017-01-08 21:51 | PROGRESS NOTE ---
DATE: 01/08/2017 A 71-year-old male admitted with gangrene of his right foot. His medical problems include coronary artery disease, arterial hypertension, type 2 diabetes mellitus which is uncontrolled. The patient was admitted. Orthopedic consultation was requested. He was seen by Dr. Napoles. Given the extent of the infection and the gangrene, the recommendation was to proceed with below the knee amputation. The procedure was carried out by Dr. Napoles. It was well tolerated. Overall, his condition has improved. He denied any headache. No dizziness, no lightheadedness. No chest pain, no shortness of breath. No abdominal pain, no nausea, no vomiting. No problem with his bowel movements. No problem urinating. No back pain. He is having some pain in his right stump, but overall it is controlled with pain medications. PHYSICAL EXAMINATION: GENERAL: Well developed, in no distress. VITAL SIGNS: Blood pressure 147/77, pulse 80 and regular, respirations 16, temperature 36.6, oxygen saturation 91% on room air. SKIN: Warm and dry. No rash. HEENT: No mucosal abnormalities. NECK: No JVD. No adenopathy. HEART: Regular heart sounds. He does have a pacer defibrillator. LUNGS: Clear. ABDOMEN: Soft, nontender. BACK: No spinal tenderness. EXTREMITIES: Dressing, right stump after his amputation. TODAY'S LABORATORY TESTS: WBC count 13,060, hemoglobin 9.2, hematocrit 27%, platelet count 457,000. Sodium 139, potassium 4.1, chloride 109, CO2 21, BUN 25, creatinine 1.7, glucose 112, calcium 7.9. ASSESSMENT: 1. Gangrene right foot, requiring amputation. 2. Status post right below the knee amputation. 3. Coronary artery disease. 4. History of atrial fibrillation. 5. Pacer defibrillator in place. 6. Uncontrolled type 2 diabetes mellitus. PLAN: 1. The patient did get rid of all the candies and cookies that his family brought him. 2. Continuing the same medications. 3. Continue his therapies. 4. The patient will complete the 48 hours of IV antibiotic after his amputation. 5. I anticipate that I should be able to send him to [facility] tomorrow.
[2017-01-09] VITALS (7 sets, daily range): BP systolic 135–159; BP diastolic 71–82; PULSE 72–90; TEMP 36.7–36.9; O2SAT 93–95
[2017-01-09] MEDS: SODIUM CHLORIDE 0.9% 1000ML 1,000 ML IV SCH ×2 (00:11→17:36)
[2017-01-09] MEDS: LEVALBUTEROL 1.25MG/3ML NEB INH SCH ×2 (03:00→07:42)
[2017-01-09] MEDS: PIPERACILL/TAZOBAC IV 3.375 GM in DEXTROSE 5% 100ML IV SCH ×2 (04:31→13:31)
[2017-01-09] MEDS: LEVOTHYROXINE 112 MCG TAB PO SCH (06:13)
[2017-01-09 06:24] LABS: INR 1.4 (0.9-1.1); PROTHROMBIN TIME (PATIENT) 15.3 SECONDS (9.0-12.0)
[2017-01-09 07:01] LABS: BASO % 0.2 %; BASO ABS # 0.02 K/uL (0-0.2); EOS % 2.7 %; HEMATOCRIT 26.3 % (42-52); IG% 0.9 %; LYMPH ABS # 0.81 K/uL (1.2-3.4); MEAN CELL VOLUME 87.7 fL (80-100); MEAN CORPUSCULAR HGB CONC 33.1 g/dl (32-36); MEAN PLATELET VOLUME 9.5 fL (7.4-10.4); MONO % 9.7 %; NEUT % 78.5 %; PLATELET COUNT 536 K/uL (130-400); WHITE BLOOD COUNT 10.15 K/uL (4.8-10.8)
[2017-01-09 07:16] LABS: BUN/CREATININE RATIO 13.2 (10-20); CALCIUM 7.9 mg/dl (8.5-10.1); CREATININE 1.6 mg/dl (0.60-1.40); POTASSIUM 4.4 mmol/L (3.5-5.1)
[2017-01-09] MEDS ORDERED: CMD75 PO (07:41)
[2017-01-09] MEDS ORDERED: RXC5 PO (07:41)
[2017-01-09] MEDS ORDERED: FRRG PO (07:41)
[2017-01-09] MEDS ORDERED: INSDGIPEN SC (07:41)
[2017-01-09] MEDS ORDERED: MULT-589 PO (07:41)
[2017-01-09] MEDS ORDERED: NVLGIPEN SC (07:41)
[2017-01-09 07:47] LABS: COMPLETE YES; ROULEAUX 1+
--- NOTE | 2017-01-09 07:49 | Discharge Instructions ---
Discharge Instructions Admission Reason for Admission: GANGRENE RIGHT FOOT CORONARY ARTERY DISEASE TYPE 2 DIABETES MELLITUS PAROXYSMAL ATRIAL FIBRILLATION ICD CHRONIC ANTICOAGULATION WITH COUMADIN HYPERLIPIDEMIA Discharge Discharge Diagnosis / Problem: GANGRENE RIGHT FOOT. AMPUTATION BELOW KNEE RIGHT LEG Discharge Goals Goal(s): Decrease discomfort, Improve function, Increase independence, Improve disease control, Improve nutritional status, Learn about illness, Therapeutic intervention Activity Recommendations Activity Level: Assistance Required Therapies: Physical Therapy, Occupational Therapy . Additional Information Patient informed of condition: Yes Advance Directives: No DNR: No Level of Care: Acute Rehab Communicable Disease: No Prognosis: Improving Valencia Catheter: No Instructions / Follow-Up Instructions / Follow-Up NEED TO RE TITRATE COUMADIN DOSE NEED TO ADJUST INSULIN DOSE. PATIENT WAS ON NOVOLIN 70/30 Current Hospital Diet Patient's current hospital diet: AHA Diet (Heart Healthy), Diabetes Type 2 Diet Discharge Diet Recommended Diet: Low Sodium Diet (2gm Na) Procedures Procedures Performed: Right Below the Knee Amputation Pending Studies Studies pending at discharge: no Laboratory Results Hemoglobin A1c Test 01/04/17 06:06 Range/Units Estimated Average Glucose 295 mg/dl Hemoglobin A1c 11.9 H 4.5-5.6 % Medical Emergencies . Who to Call and When: Medical Emergencies: If at any time you feel your situation is an emergency, please call 911 immediately. . Non-Emergent Contact Non-Emergency issues call your: Primary Care Provider . . "Provider Documentation" section prepared by Aaron Keller. Core Measure Problem Core Measures: None
[2017-01-09] MEDS: FERROUS GLUCONATE 324 MG TAB PO SCH ×3 (08:39→17:37)
[2017-01-09] MEDS: DOCUSATE SODIUM 100 MG CAP PO SCH ×2 (08:41→20:51)
[2017-01-09] MEDS: ASPIRIN 325 MG ECTAB PO SCH ×2 (08:42→20:52)
[2017-01-09] MEDS: METOPROLOL TARTRATE 50 MG TAB PO SCH ×2 (08:43→20:52)
[2017-01-09] MEDS: MULTIVITAMIN TAB PO SCH (08:44)
[2017-01-09] MEDS: PANTOprazole SOD 40 MG TAB PO SCH (08:46)
[2017-01-09] MEDS: SIMVASTATIN 40 MG TAB PO SCH (08:46)
[2017-01-09] MEDS: ALLOPURINOL 300 MG TAB PO SCH (08:48)
[2017-01-09] MEDS: INSULIN ASPART 100 UNITS/ML 3 ML PEN SC SCH ×4 (09:12→20:51)
[2017-01-09] MEDS: INSULIN GLARGINE SOLOSTAR 100 UNITS/ML 3 ML PEN SC SCH ×2 (09:15→20:55)
[2017-01-09] MEDS ORDERED: VANCOMYCIN TROUGH ONE (09:30)
[2017-01-09] MEDS: VANCOMYCIN INJ 2,000 MG in SODIUM CHLORIDE 0.9% 500ML 500 ML IV SCH (10:08)
[2017-01-09] MEDS: OXYCODONE HCL IR 5 MG TAB (IMMEDIATE RELEASE) PO PRN ×2 (12:02→23:43)
--- NOTE | 2017-01-09 15:17 | Pharmacy Progress Note ---
Pharmacy Antibiotic Prog Note Date of Service: Jan 09, 2017. Subjective: The patient is currently receiving Vancomycin 2000 mg IV every 24 hours. The patient is currently on day # 7 of Vancomycin IV therapy for SSSI with gangrene. Objective: Height (Feet): 6 Height (Inches): 2.00 Weight (Kilograms): 118.000 Levels: Item Value Date Time Vancomycin Level Trough 13.1 mcg/ml 01/09/17 0938 Lab Results (24hrs): Laboratory Tests Test 01/09/17 05:26 BUN/Creatinine Ratio 13.2 Blood Urea Nitrogen 21 mg/dl Creatinine 1.60 mg/dl White Blood Count 10.15 K/uL Red Blood Count 3.00 M/uL Hemoglobin 8.7 g/dL Hematocrit 26.3 % Mean Corpuscular Volume 87.7 fL Mean Corpuscular Hemoglobin 29.0 pg Mean Corpuscular Hemoglobin Concent 33.1 g/dl Platelet Count 536 K/uL Mean Platelet Volume 9.5 fL Neutrophils (%) (Auto) 78.5 % Lymphocytes (%) (Auto) 8.0 % Monocytes (%) (Auto) 9.7 % Eosinophils (%) (Auto) 2.7 % Basophils (%) (Auto) 0.2 % Neutrophils # (Auto) 7.98 K/uL Lymphocytes # (Auto) 0.81 K/uL Monocytes # (Auto) 0.98 K/uL Eosinophils # (Auto) 0.27 K/uL Basophils # (Auto) 0.02 K/uL Micro Results: Item Value Date Time Urine Culture - Final Complete 01/03/17 2220 Urine , Clean Catch NO GROWTH - LESS THAN 1,000 COLONIES/ML Blood Culture - Final Complete 01/03/17 1344 Blood NO GROWTH Blood Culture - Final Complete 01/03/17 1325 Blood NO GROWTH Recent Pertinent Medications: Zosyn 3.375g IV Q8H Assessment & Plan: This Vancomycin trough level of 13.1mcg/ml is slightly Subtherapeutic, but patient is scheduled to leave for [facility], after 48 hours after below knee amputation and 48 hours of antibiotics post surgery, which patient has received , today is POD3. Therefore no changes needed. OK for discharge. Pharmacy will continue to follow and will adjust dose/frequency as necessary. Thank you
[2017-01-09] MEDS: WARFARIN SOD 7.5 MG TAB PO SCH (17:38)
--- NOTE | 2017-01-09 18:16 | PROGRESS NOTE ---
DATE: 01/09/2017 SUBJECTIVE: A 71-year-old gentleman postop day 3 from right below knee amputation. He is doing pretty well. He does get some intermittent sharp pains that dissipate after a couple seconds. Otherwise, doing well. Spirits seem to be improved. OBJECTIVE: VITAL SIGNS: Temperature 36.8. Vital signs stable. PHYSICAL EXAMINATION: GENERAL: Physical examination reveals a healthy, pleasant, middle-aged male. He is sitting up in bed and looks completely comfortable. EXTREMITIES: Examination of the right leg reveals the dressing to be clean, dry and intact. No drainage. LABS: Hemoglobin 8.7, hematocrit 26.3. INR is 1.4. ASSESSMENT: A 71-year-old gentleman postop day 3 from right below knee amputation for severe infection. He is doing pretty well. He white count is improving. Appears orthopedically and medically stable. PLAN: 1. DVT prophylaxis including thigh-high TEDs, SCDs. He is back on his Coumadin. We will have to make sure he does not get too high on his INR to avoid hematoma and bleeding into his stump. 2. PT and OT. 3. Medical management as per Dr. Keller. 4. Disposition: He is orthopedically stable and acceptable for discharge any time he is medically stable. I need to see him back in about 2 weeks postop. Any questions can be directed to me at [phone].
--- NOTE | 2017-01-09 19:10 | PROGRESS NOTE ---
DATE: 01/09/2017 A 71-year-old male, admitted with gangrene of his right foot and right lower leg. He underwent a right [id number]-[id number] amputation by Dr. Elfego Napoles. His medical problems include coronary artery disease, history of atrial fibrillation and type 2 diabetes mellitus which is completely uncontrolled. Overall, his condition has improved. His pain is controlled. He denied any headache, dizziness or lightheadedness. No chest pain, no shortness of breath. Good appetite. No abdominal pain, no nausea, no vomiting. No problem with his bowel movements. No problem urinating. His stump pain is under control. PHYSICAL EXAMINATION: GENERAL: Well-developed, in no distress. VITAL SIGNS: Blood pressure 158/82, pulse 86, respirations 20, temperature 36.8 and oxygen saturation 95% on room air. SKIN: Warm and dry. No rash. HEENT: Unremarkable for any abnormality. NECK: No JVD, no adenopathy. CHEST: ICD in place. HEART: Regular heart sounds. No evident murmur, rub or gallop. LUNGS: Clear. ABDOMEN: Soft, nontender. BACK: No spinal tenderness. EXTREMITIES: Surgical dressing on right stump. TODAY'S LABORATORY TESTS: WBC count 10,150, hemoglobin 8.7, hematocrit 26.3 and platelet count 536,000. Sodium 140, potassium 4.4, chloride 110, CO2 20, BUN 21, creatinine 1.6, glucose 150 and calcium 7.9. ASSESSMENT: 1. Gangrene, right foot. 2. Status post right [id number] amputation. 3. Coronary artery disease. 4. Atrial fibrillation. 5. Uncontrolled type 2 diabetes mellitus. 6. Hyperlipidemia. 7. ICD in place. PLAN: 1. All his discharge instructions were prepared this morning anticipating transfer to [facility]. Unfortunately, there was no bed available, so patient is spending the night here and there is anticipated transfer tomorrow. 2. Discontinued his IV antibiotics. 3. Continue all his other medications. 4. Anticipating discharge to [facility] tomorrow. ARNAUD
[2017-01-10] MEDS: SODIUM CHLORIDE 0.9% 1000ML 1,000 ML IV SCH (02:15)
[2017-01-10] MEDS: LEVOTHYROXINE 112 MCG TAB PO SCH (05:45)
[2017-01-10 06:33] LABS: INR 1.6 (0.9-1.1); PROTHROMBIN TIME (PATIENT) 16.9 SECONDS (9.0-12.0)
[2017-01-10 07:24] VITALS: BP 164/88; PULSE 87; TEMP 36.5; O2SAT 95
[2017-01-10] MEDS ORDERED: CMD75 PO (08:12)
--- NOTE | 2017-01-10 08:42 | PROGRESS NOTE ---
DATE: 01/10/2017 DATE: 01/10/2017. SUBJECTIVE: A 71-year-old gentleman postop day 4 from right below knee amputation. He is doing well this morning. He says his pain is controlled. No new complaints. OBJECTIVE: VITAL SIGNS: Temperature 36.5. Vital signs stable. PHYSICAL EXAMINATION: GENERAL: Reveals a pleasant elderly male. I had to wake him this morning and seems a little bit groggy. EXTREMITIES: Examination of the right leg reveals the stump wrap to be in place. No drainage. No obvious swelling. ASSESSMENT: A 71-year-old male with multiple underlying medical problems including diabetes 4 days out from a right below knee amputation for severe infection. He is doing reasonably well. PLAN: 1. DVT prophylaxis including thigh-high TEDs, SCDs, and back on his Coumadin. 2. PT/OT. We just need to let his wound heal and then we will fit him for a prosthesis probably about 3 months out. 3. Medical management as per Dr. Keller. 4. Disposition: He is orthopedically stable and acceptable for discharge. I need to see him back 2 weeks out from surgery. Any questions can be directed to me at [phone].
[2017-01-10] MEDS: MULTIVITAMIN TAB PO SCH (08:51)
[2017-01-10] MEDS: ASPIRIN 325 MG ECTAB PO SCH (08:51)
[2017-01-10] MEDS: PANTOprazole SOD 40 MG TAB PO SCH (08:51)
[2017-01-10] MEDS: SIMVASTATIN 40 MG TAB PO SCH (08:51)
[2017-01-10] MEDS: FERROUS GLUCONATE 324 MG TAB PO SCH ×2 (08:52→13:17)
[2017-01-10] MEDS: DOCUSATE SODIUM 100 MG CAP PO SCH (08:52)
[2017-01-10] MEDS: ALLOPURINOL 300 MG TAB PO SCH (08:52)
[2017-01-10] MEDS: METOPROLOL TARTRATE 50 MG TAB PO SCH (08:56)
[2017-01-10] MEDS: INSULIN GLARGINE SOLOSTAR 100 UNITS/ML 3 ML PEN SC SCH (08:56)
[2017-01-10] MEDS: INSULIN ASPART 100 UNITS/ML 3 ML PEN SC SCH ×2 (08:56→13:18)
[2017-01-10 10:20] VITALS: BP 164/88; PULSE 87; TEMP 36.5; O2SAT 95
[2017-01-10] MEDS: WARFARIN SOD 7.5 MG TAB PO SCH (11:51)
--- NOTE | 2017-01-10 15:54 | PROGRESS NOTE ---
DATE: 01/10/2017 DATE: 01/10/2017. SUBJECTIVE: A 71-year-old male admitted with gangrene of his left foot. He has multiple medical problems including coronary artery disease, paroxysmal atrial fibrillation, type 2 diabetes mellitus, has ICD in place. He has multiple diabetic complications. The patient was admitted. He did undergo a left below the knee amputation. The procedure was well tolerated. Therapies were ordered. He denied any headache or dizziness or lightheadedness. No chest pain, no shortness of breath. Tolerating his diet. No nausea, no vomiting. No problem with his bowel movements or urination. We have been planning on getting him to [facility]. Yesterday there was no bed available. PHYSICAL EXAMINATION: GENERAL: Well developed in no distress. VITAL SIGNS: Blood pressure 164/88, pulse 87, respirations 16, temperature 36.5, oxygen saturation 95% on room air. SKIN: Warm and dry. No rash. HEAD, EYES, EARS, NOSE, AND THROAT: No evidence of any mucosal abnormalities. NECK: No JVD. No adenopathy. HEART: Regular heart sounds. LUNGS: Clear. ABDOMEN: Soft, nontender. BACK: No spinal tenderness. EXTREMITIES: Status post right BKA. Surgical dressing in place. ASSESSMENT: 1. Gangrene, right foot. 2. Status post right below the knee amputation. 3. Coronary artery disease. 4. Type 2 diabetes mellitus. 5. Paroxysmal atrial fibrillation. 6. Implantable cardioverter-defibrillator in place. 7. Chronic anticoagulation with Coumadin. PLAN: 1. Continuing his medications. 2. I did increase his Coumadin dose to 9 mg daily. His INR this morning was 1.6. 3. Discontinued his IV fluid. 4. Bed availability was confirmed at [facility] and he will be transported by his family.
--- NOTE | 2017-01-23 22:43 | DISCHARGE SUMMARY ---
DISCHARGE DIAGNOSES: 1. Gangrene of the right foot. 2. Coronary artery disease. 3. Uncontrolled type 2 diabetes mellitus. 4. Paroxysmal atrial fibrillation. 5. Chronic anticoagulation with Coumadin. 6. Hyperlipidemia. 7. ICD in place. DISCHARGE MEDICATIONS: 1. Ferrous gluconate 324 mg 3 times a day. 2. Lantus insulin 20 units twice a day. 3. NovoLog insulin according to sliding scale and coverage. 4. Multivitamin 1 daily. 5. Oxycodone 5 mg every 4 hours as needed. 6. Coumadin 7.5 mg daily. 7. Allopurinol 300 mg daily. 8. Vitamin D 2000 international units daily. 9. Tricor 48 mg daily. 10. Fish oil 1 capsule twice a day. 11. Furosemide 40 mg daily. 12. Hydralazine 25 mg twice a day. 13. Levothyroxine 112 mcg daily. 14. Lisinopril 2.5 mg daily. 15. Metoprolol tartrate 50 mg twice a day. 16. Simvastatin 40 mg daily. CONSULTATIONS: 1. Dr. Stanford Thomas in cardiology. 2. Dr. Elfego Napoles in orthopedic surgery. PROCEDURE: Right below the knee amputation done by Dr. Napoles. HISTORY OF PRESENT ILLNESS: A 71-year-old male admitted through the Emergency Room with gangrene of his right first toe and foot and marked cellulitis. The patient with multiple medical problems including coronary artery disease, cardiomyopathy, atrial fibrillation, has a biventricular ICD in place, ischemic cardiomyopathy, uncontrolled diabetes mellitus, chronic kidney disease, and history of gout. The patient presented to the Emergency Room complaining of severe pain in his right foot. He stated that the problem started about 4 weeks prior to his Emergency Room visit. He started developing a pain and gradually developed seepage from his right first toe. Lately, he stated that the drainage from his toe has really been very foul smelling. He has been trying to take care of it at home. He never mentioned it in the office. The patient was evaluated in the Emergency Room. He was diagnosed with gangrene. Cultures were done. He was started on IV antibiotics including vancomycin, Zosyn and clindamycin. He was admitted for further treatment. PAST MEDICAL HISTORY, SOCIAL HISTORY AND FAMILY HISTORY: All as noted. ALLERGIES: None. MEDICATIONS ON ADMISSION: All as noted. PHYSICAL EXAMINATION AND ADMISSION LABORATORY TESTS: All as noted. HOSPITAL COURSE: The patient was admitted to medical bed. Resuscitation level 1. Laboratory tests were ordered. Arterial Doppler of his right leg was ordered. He was started on antibiotics as noted above. Sliding scale coverage for his diabetes. Orthopedic consultation was requested. The condition of his foot did not improve with IV antibiotics. The patient was seen by Dr. Elfego Napoles. The recommendation was to proceed with below the knee amputation. He was also seen in cardiology evaluation by Dr. Stanford Thomas. The patient was taken to the operating room. He underwent right below the knee amputation. The procedure was well tolerated. He was continued on IV antibiotics for about 48 hours after the surgery and antibiotics were discontinued. Physical and occupational therapies were ordered. During his hospitalization, patient remained quite weak and tired. He started moving with physical therapy. Case management consultation was requested to plan for rehab admission. The patient was accepted for rehabilitation. His insurance company approved it. He was transferred to [facility]. He was to follow up with Dr. Napoles. The dressing on his stump was to be left alone until Dr. Napoles sees him. The plan is to go ahead with his therapy. As soon as possible, we will start working on his prosthesis. ARNAUD
--- NOTE | 2017-01-26 11:12 | EDITING REQUIRED CODING QUERY ---
CODING QUERY To promote full compliance with coding requirements relating to patient care, provider participation is requested in all cases of food processor uncertainty. Please assist us with the question(s) below: Coding Question(s): Please specify whether the poorly controlled diabetes is hyperglycemia or hypoglycemia Physician's Response(s): _X__ Uncontrolled diabetes with hyperglycemia ___ Uncontrolled diabetes with hypoglycemia ___ Other: Please specify: Thank you Elly Pineda Principal Diagnosis: "_that condition established after study, to be chiefly responsible for occasioning the admission of the patient to the hospital for care." Co-Existing Principal Diagnosis: "_when two or more diagnoses equally meet the criteria for principal diagnosis as determined by the circumstances of admission, diagnostic work up, and/or therapy provided, and the Alphabetic Index, Tabular List, or another coding guideline does not provide sequencing direction, any one of the diagnoses may be sequenced first." "When the physician has documented what appears to be a current diagnosis in the body of the record, but has not included the diagnosis in the final diagnostic statement, the physician should be asked whether the diagnosis should be added." ([facility] 2 QTR90. p3-4)
--- NOTE | 2017-01-26 11:15 | EDITING REQUIRED CODING QUERY ---
CODING QUERY To promote full compliance with coding requirements relating to patient care, provider participation is requested in all cases of boat painter uncertainty. Please assist us with the question(s) below: Coding Question(s): Please clarify whether the documentation of osteomyelitis is acute or chronic Physician's Response(s): _X__ Acute Osteomyelitis ___ Chronic Osteomyelitis ___ Other: please specify Thank you Elly Pineda Principal Diagnosis: "_that condition established after study, to be chiefly responsible for occasioning the admission of the patient to the hospital for care." Co-Existing Principal Diagnosis: "_when two or more diagnoses equally meet the criteria for principal diagnosis as determined by the circumstances of admission, diagnostic work up, and/or therapy provided, and the Alphabetic Index, Tabular List, or another coding guideline does not provide sequencing direction, any one of the diagnoses may be sequenced first." "When the physician has documented what appears to be a current diagnosis in the body of the record, but has not included the diagnosis in the final diagnostic statement, the physician should be asked whether the diagnosis should be added." ([facility] 2 QTR90. p3-4)
== END 2017-01-10 14:40 | DRG 240 ==
LOC: ENRESERVTM → ENRESERVDT → C.EDB 12:37 → C.MSW 17:02 → CANBEDREQ 01-05 16:14
PROVIDERS: ADMIT Internal Medicine; ATTEND Internal Medicine
PROC: 0Y6H0Z2 Detachment at Right Lower Leg, Mid, Open Approach (ICD-10-PCS; principal; 2017-01-06 14:20)
DX: E11.52 Type 2 diabetes mellitus with diabetic peripheral angiopathy with gangrene (principal); L03.115 Cellulitis of right lower limb; M86.171 Other acute osteomyelitis, right ankle and foot; I42.9 Cardiomyopathy, unspecified; N17.9 Acute kidney failure, unspecified; E11.69 Type 2 diabetes mellitus with other specified complication; E11.65 Type 2 diabetes mellitus with hyperglycemia; I25.10 Atherosclerotic heart disease of native coronary artery without angina pectoris; E78.00 Pure hypercholesterolemia, unspecified; I48.0 Paroxysmal atrial fibrillation; N18.9 Chronic kidney disease, unspecified; I12.9 Hypertensive chronic kidney disease with stage 1 through stage 4 chronic kidney disease, or unspecified chronic kidney disease; E78.5 Hyperlipidemia, unspecified; I25.2 Old myocardial infarction; Z79.4 Long term (current) use of insulin; Z95.810 Presence of automatic (implantable) cardiac defibrillator; Z91.14 Patient's other noncompliance with medication regimen; Z87.891 Personal history of nicotine dependence; Z86.711 Personal history of pulmonary embolism; Z83.3 Family history of diabetes mellitus; Z80.0 Family history of malignant neoplasm of digestive organs; Z80.3 Family history of malignant neoplasm of breast; Z82.5 Family history of asthma and other chronic lower respiratory diseases

== ENCOUNTER → 2017-03-25 | Outpatient (CLI) | payer OTHER, BC ==
[~2017-03-25] MED LIST changes: -APR/25 PO; +CMD75 PO; +FRRG PO; +HYDR-4716 PO; +INSDGIPEN SC; +MULT-589 PO; -NVLGI7030 SC; +NVLGIPEN SC; +RXC5 PO; -WARF5TAB7 PO
--- NOTE | 2017-03-25 12:58 | DIAGNOSTIC IMAGING REPORT ---
Arterial Doppler left leg LEFT ART DOP DUPLEX LW EXT UNI CLINICAL HISTORY: PAD-LEFT LEG pain. TECHNIQUE: Arterial Doppler left leg COMPARISON STUDY: None FINDINGS: Scattered calcified plaque throughout all major arterial structures of the left leg. Triphasic waveforms within the left thigh. Monophasic waveforms within the popliteal and all 3 runoff vessels. Ankle brachial index of posterior tibial is 1.70. Itself is not accessible due to noncompressible vessels. IMPRESSION: Moderate arterial occlusive change from the left popliteal to the 3 runoff vessels of the left lower leg. Electronically signed by: Cristian Fox M.D. 03/25/2017 12:57 PM Dictated Date/Time: 03/25/2017 12:55 PM
== END | disposition home or self-care (01) ==
LOC: C.ULTR 11:55
PROVIDERS: ATTEND Internal Medicine
DX: I73.9 Peripheral vascular disease, unspecified (principal)

== ENCOUNTER → 2017-10-06 | Outpatient (CLI) | payer OTHER, BC ==
[2017-10-06 12:58] LABS: BASO % 0.3 %; BASO ABS # 0.03 K/uL (0-0.2); COMPLETE YES; EOS % 5.9 %; HEMATOCRIT 44.8 % (42-52); IG% 0.2 %; LYMPH % 28.1 %; LYMPH ABS # 2.79 K/uL (1.2-3.4); MEAN CELL VOLUME 89.2 fL (80-100); MEAN CORPUSCULAR HEMOGLOBIN 30.1 pg (25-34); MEAN CORPUSCULAR HGB CONC 33.7 g/dl (32-36); MEAN PLATELET VOLUME 11.1 fL (7.4-10.4); MONO % 11.6 %; NEUT % 53.9 %; PLATELET COUNT 219 K/uL (130-400); RED BLOOD COUNT 5.02 M/uL (4.7-6.1); WHITE BLOOD COUNT 9.94 K/uL (4.8-10.8)
[2017-10-06 13:21] LABS: ESTIMATED AVERAGE GLUCOSE 263 mg/dl; HA1C FLAG Normal (Normal)
[2017-10-06 13:29] LABS: ALT/SGPT 29 U/L (12-78); AST/SGOT 13 U/L (15-37); BLOOD UREA NITROGEN 26 mg/dl (7-18); BUN/CREATININE RATIO 14.6 (10-20); CALCIUM 9.1 mg/dl (8.5-10.1); CARBON DIOXIDE 27 mmol/L (21-32); CHLORIDE 105 mmol/L (98-107); CREATININE 1.78 mg/dl (0.60-1.40); GLUCOSE 212 mg/dl (70-99); POTASSIUM 4.2 mmol/L (3.5-5.1); SODIUM 138 mmol/L (136-145)
[2017-10-06 13:37] LABS: ALB/GLOB RATIO 0.9 (0.9-2); ALKALINE PHOSPHATASE 75 U/L (45-117); CHOLESTEROL 152 mg/dl (0-200); CHOLESTEROL/HDL RATIO 4.5; HDL CHOLESTEROL 34 mg/dl; TRIGLYCERIDES 269 mg/dl (0-150); VERY LOW DENSITY LIPOPROT CALC 54 mg/dl
== END | disposition home or self-care (01) ==
LOC: C.LABSPEC 12:13
PROVIDERS: ATTEND Internal Medicine
DX: E11.65 Type 2 diabetes mellitus with hyperglycemia (principal); I10 Essential (primary) hypertension; I48.91 Unspecified atrial fibrillation; I25.10 Atherosclerotic heart disease of native coronary artery without angina pectoris; E73.9 Lactose intolerance, unspecified; E03.9 Hypothyroidism, unspecified

== ENCOUNTER → 2018-01-28 | Outpatient (CLI) | payer OTHER, BC ==
[2018-01-28 13:37] LABS: INR 2.6 (0.9-1.1)
[2018-01-28 14:27] LABS: HEMOGLOBIN A1C 11.7 % (4.5-5.6)
[2018-01-28 16:34] LABS: BLOOD UREA NITROGEN 46 mg/dl (7-18); CALCIUM 9.6 mg/dl (8.5-10.1); CARBON DIOXIDE 24 mmol/L (21-32); CHOLESTEROL 168 mg/dl (0-200); CREATININE 2.44 mg/dl (0.60-1.40); GLUCOSE 299 mg/dl (70-99); POTASSIUM 4.6 mmol/L (3.5-5.1); SODIUM 136 mmol/L (136-145)
[2018-01-28 16:38] LABS: LDL CHOLESTEROL (DIRECT) 108 mg/dl
== END | disposition home or self-care (01) ==
LOC: C.LABSPEC 12:37
PROVIDERS: ATTEND Internal Medicine
DX: I48.0 Paroxysmal atrial fibrillation (principal); Z79.01 Long term (current) use of anticoagulants; I25.10 Atherosclerotic heart disease of native coronary artery without angina pectoris; E11.65 Type 2 diabetes mellitus with hyperglycemia; E78.5 Hyperlipidemia, unspecified

== ENCOUNTER 2019-04-22 08:39 | Observation (INO) ==
[2019-04-22 09:12] LABS: Basophils # (auto) 0.04 K/uL (0-0.2); Basophils % (auto) 0.4 %; Eosinophils # (auto) 0.52 K/uL (0-0.5); Eosinophils % (auto) 5.6 %; Hematocrit (blood only) 36.8 % (42-52); Hemoglobin 12.8 g/dL (14.0-18.0); Immature Granulocytes # (auto) 0.02 K/uL (0.00-0.02); Immature Granulocytes % (auto) 0.2 %; Lymphocytes # (auto) 1.88 K/uL (1.2-3.4); Lymphocytes % (auto) 20.1 %; Mean Corpuscular Hgb Conc 34.8 g/dL (32-36); Mean Corpuscular Volume 87.2 fL (80-100); Monocytes # (auto) 0.91 K/uL (0.11-0.59); Monocytes % (auto) 9.7 %; Neutrophils # (auto) 5.98 K/uL (1.4-6.5); Platelet Count 187 K/uL (130-400); RDW Coefficient of Variation 14.4 % (11.5-14.5); Red Blood Count 4.22 M/uL (4.7-6.1); White Blood Count 9.35 K/uL (4.8-10.8)
[2019-04-22 09:27] LABS: Albumin Level 3.6 gm/dl (3.4-5.0); BUN Creatinine Ratio 18.6 (10-20); Calcium 10.1 mg/dl (8.5-10.1); Creatinine Clr Calc Pharmacy 36.2 ml/min; Est GFR (African American) 28.5; Est GFR (Non-African American) 24.6; Potassium 4.7 mmol/L (3.5-5.1)
[2019-04-22 09:30] LABS: Albumin Globulin Ratio 0.8 (0.9-2); Bilirubin,Total 0.4 mg/dl (0.2-1); Globulin 4.3 gm/dl (2.5-4.0); Total Protein 7.9 gm/dl (6.4-8.2)
[2019-04-22 09:31] LABS: Partial Thromboplastin Ratio 1.6; Partial Thromboplastin Time 42.4 Seconds (21.0-31.0); Prothrombin Time 37.1 Seconds (9.0-12.0)
[2019-04-22] MEDS ORDERED: PHYTONADIONE 2.5 MG in SODIUM CHLORIDE 0.9% 50 ML IV ONE (09:48)
--- NOTE | 2019-04-22 10:15 | XRay Report ---
XR chest 2V routine HISTORY: pacer placement large hematoma COMPARISON: Chest 01/03/2017. FINDINGS: Left-sided pacemaker/defibrillator is again noted. The leads appear intact. No pneumothorax . No pleural effusions. The heart remains top normal in size. No evidence for pulmonary edema. No foc al lung consolidations to suggest pneumonia. Left basilar linear densities favor subsegmental atelect asis are scarring. Old mild anterior wedge-shaped compression deformity within the upper thoracic spi ne remains unchanged. IMPRESSION: No acute process. Electronically signed by: Boubacar Bryant M.D. 04/22/2019 10:14 AM
[2019-04-22] MEDS ORDERED: PHYTONADIONE 5 MG TAB PO STA (12:46)
[2019-04-22] MEDS ORDERED: PHYTONADIONE 5 MG in SODIUM CHLORIDE 0.9% 50 ML IV ONE (13:00)
[2019-04-22] MEDS: CEFAZOLIN 1000MG 1,000 MG/7.5 ML SYR IV SCH ×2 (13:25→21:44)
[2019-04-22] MEDS ORDERED: MoRPHine SULFATE 4 MG/ML 1 ML CARP\\VIAL IV STA (13:33)
--- NOTE | 2019-04-22 13:34 | Consultation Report ---
DATE OF CONSULTATION: 04/22/2019 INPATIENT CARDIOLOGY CONSULTATION CONSULTATION REQUESTED BY: Dr. Cortes. REASON FOR CONSULTATION: Hematoma at the pacemaker pocket site. HISTORY OF PRESENT ILLNESS: Mr. Warren is a very pleasant 73-year-old gentleman who normally follows with Dr. Simmons and Dr. Griffiths of our cardiology practice. The patient underwent generator change with Dr. Griffiths at [facility] on 04/19/2019, but now presents to [facility] on the with complaints of pain at the pocket site. The patient states that he has had discomfort ever since discharge, but over the last 2 or 3 days, he has noticed that he has developed a large hematoma over the pacemaker pocket site that has become very large and tender. He has not had ecchymotic areas developed all along his left breast and even into his left mediastinum. It has become very tender to the touch, even developing pleuritic pain now. He has been taking all of his medications at home as directed without issue and otherwise feeling well. He came into the Emergency Department and there is a significant hematoma present along with diffuse ecchymosis. I received a call from the ER in regards to management. I discussed the case with Dr. Griffiths and the patient will now be admitted. PAST SURGICAL HISTORY: 1. ICD placement initially in 2007 with generator change, 09/19/2019, [employer] device. 2. Cardiac catheterization in 2007, unremarkable. MEDICAL ILLNESSES: 1. Nonischemic cardiomyopathy, status post BiV ICD implant. 2. Diffuse nonobstructive coronary artery disease. 3. Hypertension. 4. Hyperlipidemia. 5. Diabetes. 6. Moderate aortic stenosis. 7. Paroxysmal atrial fibrillation, on chronic Coumadin therapy. FAMILY HISTORY: Noncontributory. SOCIAL HISTORY: The patient is a former smoker, quit in 1979. Denies any alcohol or recreational drug use. He is not . He lives at home by himself. He is accompanied today with his sister and [id number]. ALLERGIES: No known drug allergies. MEDICATIONS AN OUTPATIENT: 1. Hydralazine 50 mg b.i.d. 2. Lasix 40 mg daily. 3. Metoprolol tartrate 50 mg b.i.d. 4. Lisinopril 2.5 mg daily. 5. Coumadin 7.5 mg as directed by the [facility]. 6. Simvastatin 40 mg daily. 7. Tricor 48 mg daily. 8. Levoxyl daily. 9. Fish oil daily. 10. Insulin as directed. PHYSICAL EXAMINATION: VITALS: Temperature is 36.5, pulse 60, respiratory rate 12, blood pressure 110/57. GENERAL: Awake, alert, oriented x3, mild distress secondary to discomfort. HEENT: Normocephalic, atraumatic. Pupils equal, round, and reactive to light and accommodation. Extraocular muscles intact. Anicteric sclerae. Moist mucous membranes. NECK: No JVD, no bruit. CARDIOVASCULAR: Regular. Positive S4. Normal S1 and S2. No S3. A 3/6 mid to late systolic ejection murmur greatest at the right sternal border, second intercostal space with radiation to bilateral carotids. No rubs. PULMONARY: Clear to auscultation bilaterally. No rales, rhonchi, or wheezing. ABDOMEN: Bowel sounds x4, soft. No rebound, guarding or tenderness. No organomegaly. EXTREMITIES: No clubbing, cyanosis or edema. Right BKA. SKIN: A large hematoma at the pacemaker pocket site with diffuse ecchymosis across the left precordium into the mediastinal area, diffusely tender. IMAGING DATA: Chest x-ray was read as no acute process. LABORATORY STUDIES OF SIGNIFICANCE: INR of 4. Sodium 137, BUN 47, creatinine 2.5. IMPRESSION: 1. Large pacemaker pocket hematoma, status post generator change. 2. Supratherapeutic INR. 3. Paroxysmal atrial fibrillation, on chronic Coumadin therapy. 4. Chronic kidney disease, current GFR of 36. 5. Nonischemic cardiomyopathy. RECOMMENDATIONS: It was my pleasure to see Mr. Warren in consultation today. After discussion with my electrophysiology colleague, it was determined that at this point a pressure dressing will be applied to the site to help decrease the swelling. His INR will also be reversed using vitamin K 5 mg IV x1 now. We will also be started on antibiotics, and based on his renal function, he will be given Ancef 5 mg b.i.d. for 24 hours and then discharged to home on Keflex for 10 days. My office will arrange a site check on April 25. He will also require medication for pain control and likely discharge in the a.m. His Coumadin obviously will be held, but will be maintained on all his other outpatient medical regimen.
--- NOTE | 2019-04-22 13:49 | History & Physical Report ---
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 Patient has been seen and evaluated by cardiology. INR 4.0 - Vitamin K 5 mg IV x 1 given while in ED Initiated on Ancef twice daily, renal dosed per pharmacy Per cardiology recommendations continue IV antibiotics for 24 hours and will be discharged home on Keflex for 10 days. Cardiology will arrange a site check on April 25. Continue to hold Coumadin and monitor INR repeat INR at 7pm and in a.m. Pain control: Percocet 5/325 every 4 hours as needed moderate pain; morphine 4 mg IV every 6 hours as needed severe pain Follow CBC, BMP (4) Atrial fibrillation: Continue metoprolol for rate control Hold warfarin INR at 7 PM and in a.m. (5) CAD (coronary artery disease): Continue medical management with metoprolol, lisinopril, simvastatin (6) CHF (congestive heart failure): Patient euvolemic Continue metoprolol and lisinopril Monitor daily weights, heart healthy diet, strict I's and Os (7) T2DM (type 2 diabetes mellitus): Patient on 70-30 insulin 95 units in the a.m. and 85 units in p.m. Last A1c 11.1 Repeat A1c in a.m. Consult glycemic pharmacist for assistance of management (8) CKD (chronic kidney disease) stage 4, GFR 15-29 ml/min: Baseline creatinine 2.0-2.5 BUN/creatinine 47 and 2.5 Monitor BMP (9) Hypertension: Blood pressure elevated likely in setting of pain Control pain Continue hydralazine, metoprolol, lisinopril (10) DVT prophylaxis: SCD/teds Warfarin on hold secondary to supratherapeutic INR Disposition: discharge to home likely in a.m. on PO Keflex x 10 days with outpt cardiology follow up on 04/25/19 Follow up: PCP Dr. Shilpa Walker upon discharge Patient was seen and examined in collaboration with Dr. 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 Patient complains of pain at the pocket site that has been present ever since discharge; however, has been getting worse. He also noticed increased swelling over pocket site as well as left breast and very firm/tender to touch. He has developed bruising over left anterior chest wall and extending across precordium. Patient elicits with his past 2 ICD placements he did not experience this. He denies any postoperative fever, chills, sweats, lightheadedness, dizziness, shortness of breath, palpitations, nausea, vomiting, diarrhea, change in bowel or urinary habits. Appetite has been stable and he has been drinking fluids. He has been taking all of his medications including his Coumadin. Allergies Allergy/AdvReac Type Severity Reaction Status Date / Time No Known Allergies Allergy Verified 04/22/19 10:43 Home Medications Home Medications Medication Instructions Recorded Confirmed Type allopurinol 300 mg PO DAILY 04/22/19 04/22/19 History blood sugar diagnostic [OneTouch 04/22/19 04/22/19 History Ultra Blue Test Strip] fenofibrate nanocrystallized 48 mg PO DAILY 04/22/19 04/22/19 History hydralazine 50 mg PO BID 04/22/19 04/22/19 History insulin asp prt-insulin aspart 85 unit SUBCUT QPM 04/22/19 04/22/19 History [Novolog Mix 70-30 U-100 Insuln] insulin asp prt-insulin aspart 95 unit SUBCUT QAM 04/22/19 04/22/19 History [Novolog Mix 70-30 U-100 Insuln] levothyroxine 112 mcg PO DAILY 04/22/19 04/22/19 History lisinopril 2.5 mg PO QAM 04/22/19 04/22/19 History metoprolol tartrate 50 mg PO BID 04/22/19 04/22/19 History simvastatin 40 mg PO DAILY 04/22/19 04/22/19 History warfarin 10 mg PO DAILY 04/22/19 04/22/19 History Past Med/Surg History Medical History Nonischemic cardiomyopathy (Chronic) CKD (chronic kidney disease) stage 4, GFR 15-29 ml/min (Chronic) Atrial fibrillation (Chronic) LBBB (left bundle branch block) (Chronic) CAD (coronary artery disease) (Chronic) PVD (peripheral vascular disease) (Chronic) CHF (congestive heart failure) (Chronic) T2DM (type 2 diabetes mellitus) (Chronic) Postoperative hematoma (Acute) Diabetes (Chronic) Cardiac defibrillator in place (Chronic) ICD (implantable cardioverter-defibrillator) battery depletion (Chronic) Pt with BiV ICD at [facility]; for a generator change; discussed the procedure and potential risks with the patient which include but not limited to , arrhythmia, stroke, heart attack, bleeding and infection. 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 BOARD STACKER and converted to a BiV in 02/2013 with recent generator exchange 04/19/19 Amputated below knee (Chronic) Prosthetic in place Family History Father Stroke Mother Diabetes Social History Preferred Language: Turkmen Communication Ability: Effective Teaching Artist Required: No Beliefs That Will Affect Care: None Current Living Situation: Alone Other Information That Helps Us Care for You: No Feels Safe at Home: Yes Safety Concerns: Feels Safe At This Time Smoking Status: Former smoker Cigarettes Per Day: 1984 Do You Dip or Chew Tobacco: No Second Hand Exposure: No Tobacco Cessation Education Requested by Patient: No Hx Alcohol Use: No Hx Substance Use: No Review of Systems Review of Systems: As noted per HPI, 10 systems reviewed and negative unless noted above. Physical Exam Physical Exam: Gen: WD/WN, M, sitting up at bedside, NAD, pleasant, conversing easily Head: Normocephalic, Atraumatic Eyes: Sclera normal, no conjunctival injection, PERRLA, EOMI ENT: Gross hearing intact, normal pharynx, mucous membranes moist Neck: supple, no adenopathy, No JVD, no bruit, Resp: Clear to auscultation b/l, no wheeze, rales, rhonchi. Normal insp/exp effort, no accessory muscle use CV: + Bi V ICD incision site with significant L ACW and L lateral CW ecchymosis extending under R breast. L breast firm and tender consistent with hematoma Heart: Regular rate, regular rhythm, 2/6 YOLANDA noted LUSB, no rub, gallop, or ectopy Abd: protuberant abdomen +BS x 4, soft, nontender, nondistended Musculoskeletal: moves extremities active rom x 4, strength intact, good dip painter strength Extremities: No edema bilaterally, R BKA with prosthetic in place Skin: warm, moist, no rash, + L anterior chest wall hematoma, negative turgor, cap refill < 2sec Neuro: Alert and oriented x 3, speech normal, good mood/affect, cran nerve 2-12 intact grossly : deferred Results & Data Vital Signs (Past 12 Hours) Vital Signs Temp Pulse Resp BP Pulse Ox 04/22/19 11:00 60 23 96 04/22/19 10:30 60 19 94 04/22/19 10:21 57 L 24 110/57 L 94 04/22/19 10:20 61 22 04/22/19 10:18 60 26 H 04/22/19 09:56 62 19 04/22/19 09:40 60 26 H 04/22/19 09:30 55 L 20 04/22/19 09:20 60 18 04/22/19 09:10 62 24 04/22/19 09:00 62 17 04/22/19 08:58 62 18 04/22/19 08:44 36.5 C 69 20 173/66 H 96 Laboratory Results Short CBC 04/22/19 Range/Units 09:04 WBC 9.35 (4.8-10.8) K/uL Hgb 12.8 L (14.0-18.0) g/dL Hct 36.8 L (42-52) % Plt Count 187 (130-400) K/uL BMP 04/22/19 09:04 Sodium 137 Potassium 4.7 Chloride 106 Carbon Dioxide 22 BUN 47 H Creatinine 2.50 H Glucose 261 H Calcium 10.1 Liver Function 04/22/19 Range/Units 09:04 Total Bilirubin 0.4 (0.2-1) mg/dl AST 17 (15-37) U/L ALT 20 (12-78) U/L Alkaline Phosphatase 62 (45-117) U/L Albumin 3.6 (3.4-5.0) gm/dl Diagnostic Findings CXR: FINDINGS: Left-sided pacemaker/defibrillator is again noted. The leads appear intact. No pneumothorax. No pleural effusions. The heart remains top normal in size. No evidence for pulmonary edema. No focal lung consolidations to suggest pneumonia. Left basilar linear densities favor subsegmental atelectasis are scarring. Old mild anterior wedge-shaped compression deformity within the upper thoracic spine remains unchanged. IMPRESSION: No acute process. Medications Administered Cefazolin Sodium (Ancef 1000mg) 1,000 mg in 7.5 mls @ 2.5 mls/min IV BID [facility]; Protocol Stop: 05/02/19 12:59 Last Admin: 04/22/19 13:25 Dose: 2.5 mls/min Documented by: [id number] Discontinued Medications Phytonadione 2.5 mg/ Sodium (Chloride) 50.25 mls @ 100.5 mls/hr IV ONE ONE Stop: 04/22/19 10:17 Last Admin: 04/22/19 12:44 Dose: Not Given Documented by: [id number] Phytonadione 5 mg/ Sodium (Chloride) 50.5 mls @ 101 mls/hr IV TODAY@1300 ONE Stop: 04/22/19 13:29 Last Admin: 04/22/19 13:30 Dose: 101 mls/hr Documented by: [id number] ECG Rate (beats per minute): 66 Findings: + paced rhythm Supervising Physician Co-Signing Physician Notes Attending addendum The patient was seen chest on 7 male who has a significant past medical history of IDDM, atrial fibrillation on Coumadin, HTN, CHF, PVD remote hx of R BKA, hypothyroidism, CAD with history of 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 He complains of pain at the operation site with swelling since the surgery Denies any palpitations or any shortness of breath with the Denies any fever and/or chills On examination No apparent distress at rest Hemodynamically stable with blood pressure on the upper side Chest-decreased in the bases, tender left upper anterior chest wall with swelling likely secondary to hematoma Heart-S1-S2, irregular Abdomen-distended, soft, nontender, bowel sounds present Extremities-trace edema bilaterally Admission labs noted Has postoperative hematoma at the ICD generator changed site Received vitamin K to reverse supratherapeutic INR Will observe in medical telemetry unit Likely discharge tomorrow Agree with assessment and plan as outlined above by NILES Rangel Dr (1) Postoperative hematoma Procedure type: non-musculoskeletal Surgical complication system/body Area: musculoskeletal system Qualified Code(s): M96.841 - Postprocedural hematoma of a musculoskeletal structure following other procedure
[2019-04-22] MEDS ORDERED: GLUCAGON FOR INJ 1 MG VIAL SQ PRN (14:10)
[2019-04-22] MEDS ORDERED: ALUMINUM/MAGNESIUM SUSP 30 ML UDC PO PRN (14:10)
[2019-04-22] MEDS ORDERED: POLYETHYLENE (MIRALAX) 17 GM PACK PO PRN (14:10)
[2019-04-22] MEDS ORDERED: GLUCOSE 40% GEL 15 GM TUBE PO PRN (14:10)
[2019-04-22] MEDS ORDERED: CARBOHYDRATES FOR HYPOGLYCEMIA PO PRN (14:10)
[2019-04-22] MEDS ORDERED: MoRPHine SULFATE 4 MG/ML 1 ML CARP\\VIAL IV PRN (14:10)
[2019-04-22] MEDS ORDERED: OXYCODONE/ACETAMINOPHEN 5mg/325mg TAB PO PRN (14:10)
[2019-04-22] MEDS ORDERED: ONDANSETRON INJ 2 MG/ML 2 ML VIAL IV PRN (14:10)
[2019-04-22] MEDS ORDERED: GLUCOSE 10 TABS/TUBE PO PRN (14:10)
[2019-04-22] MEDS ORDERED: DEXTROSE 50% 50 ML SYRINGE IV PRN (14:10)
[2019-04-22] MEDS ORDERED: ACETAMINOPHEN 325 MG TAB PO PRN (14:10)
[2019-04-22] MEDS ORDERED: MAGNESIUM HYDROXIDE SUSP 30 ML UDC PO PRN (14:10)
[2019-04-22] MEDS ORDERED: PHARMACY GLYCEMIC MGMT CONSULT PRN (14:30)
--- NOTE | 2019-04-22 14:43 | Emergency Department Note ---
Entered by Kinjal Barney acting as a scribe for History of Present Illness General Chief complaint: Chest Pain Stated complaint: POST FIBULATOR SURGERY - CHEST PAINS Source: patient Mode of arrival: ambulatory Limitations: no limitations History of Present Illness Provider complaint: bruise Onset (ago): day(s) 3 Location: chest Pain Consistency: + other (worsening) Exacerbated By: + other (touch) Associated symptoms: + chest pain (sore) Treatments prior to arrival: other (pain med) The patient is a 73 year old male who presents to the ER with complaints of a worsening bruise that began 2 days ago. The patient reports that he had a defibrillator placed 3 days ago at this hospital. He states that since, he has had soreness in the incision area as well as a worsening bruise. He notes that he is currently on Coumadin, aspirin and Plavix. He also reports that he has been taking [id number] pain medications. He is unsure of when he had his INR levels last checked. EMR reviewed and the patients INR was checked on Mar-2019 at [facility] and was 2.7. Home Medications Home Medications Medication Instructions Recorded Confirmed Type Novolog Mix 70-30 U-100 Insuln 85 unit SUBCUT QPM 04/22/19 04/22/19 History Novolog Mix 70-30 U-100 Insuln 95 unit SUBCUT QAM 04/22/19 04/22/19 History OneTouch Ultra Blue Test Strip 04/22/19 04/22/19 History allopurinol 300 mg PO DAILY 04/22/19 04/22/19 History fenofibrate nanocrystallized 48 mg PO DAILY 04/22/19 04/22/19 History hydralazine 50 mg PO BID 04/22/19 04/22/19 History levothyroxine 112 mcg PO DAILY 04/22/19 04/22/19 History lisinopril 2.5 mg PO QAM 04/22/19 04/22/19 History metoprolol tartrate 50 mg PO BID 04/22/19 04/22/19 History simvastatin 40 mg PO DAILY 04/22/19 04/22/19 History acetaminophen 325 mg PO Q6H PRN 5 Days #20 tab 04/23/19 Rx cephalexin 250 mg PO Q12H 10 Days #20 cap 04/23/19 Rx oxycodone 5 mg PO Q6H PRN 4 Days #16 tab 04/23/19 Rx Allergies Allergy/AdvReac Type Severity Reaction Status Date / Time No Known Allergies Allergy Verified 04/22/19 10:43 Past Med/Surg History Medical History Nonischemic cardiomyopathy (Chronic) CKD (chronic kidney disease) stage 4, GFR 15-29 ml/min (Chronic) Atrial fibrillation (Chronic) LBBB (left bundle branch block) (Chronic) CAD (coronary artery disease) (Chronic) PVD (peripheral vascular disease) (Chronic) CHF (congestive heart failure) (Chronic) T2DM (type 2 diabetes mellitus) (Chronic) Postoperative hematoma (Acute) Diabetes (Chronic) Cardiac defibrillator in place (Chronic) ICD (implantable cardioverter-defibrillator) battery depletion (Chronic) Pt with BiV ICD at [facility]; for a generator change; discussed the procedure and potential risks with the patient which include but not limited to , arrhythmia, stroke, heart attack, bleeding and infection. 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 and A total of 10 systems reviewed and were otherwise negative Physical Exam Vital Signs Vital Signs - 24 hr 04/22/19 08:44 04/22/19 08:58 04/22/19 09:00 Temperature 36.5 C Temperature Source Oral Sepsis Recent Fever Within 48 Hours No Sepsis New/Unexplained Change in Mental Status No Sepsis Action Taken by Nursing No Action Required Pulse Rate 69 62 62 Pulse Rate from SpO2 Sensor Respiratory Rate 20 18 17 Respiratory Depth Normal Blood Pressure 173/66 H Blood Pressure Mean 101 Pulse Oximetry 96 Oxygen Delivery Method Room Air 04/22/19 09:10 04/22/19 09:20 04/22/19 09:30 Temperature Temperature Source Sepsis Recent Fever Within 48 Hours Sepsis New/Unexplained Change in Mental Status Sepsis Action Taken by Nursing Pulse Rate 62 60 55 L Pulse Rate from SpO2 Sensor Respiratory Rate 24 18 20 Respiratory Depth Blood Pressure Blood Pressure Mean Pulse Oximetry Oxygen Delivery Method 04/22/19 09:40 04/22/19 09:56 04/22/19 10:18 Temperature Temperature Source Sepsis Recent Fever Within 48 Hours Sepsis New/Unexplained Change in Mental Status Sepsis Action Taken by Nursing Pulse Rate 60 62 60 Pulse Rate from SpO2 Sensor Respiratory Rate 26 H 19 26 H Respiratory Depth Blood Pressure Blood Pressure Mean Pulse Oximetry Oxygen Delivery Method 04/22/19 10:20 04/22/19 10:21 04/22/19 10:30 Temperature Temperature Source Sepsis Recent Fever Within 48 Hours Sepsis New/Unexplained Change in Mental Status Sepsis Action Taken by Nursing Pulse Rate 61 57 L 60 Pulse Rate from SpO2 Sensor 61 60 Respiratory Rate 22 24 19 Respiratory Depth Blood Pressure 110/57 L Blood Pressure Mean 74 Pulse Oximetry 94 94 Oxygen Delivery Method 04/22/19 11:00 04/22/19 11:11 04/22/19 11:30 Temperature Temperature Source Sepsis Recent Fever Within 48 Hours Sepsis New/Unexplained Change in Mental Status Sepsis Action Taken by Nursing Pulse Rate 60 63 60 Pulse Rate from SpO2 Sensor 60 63 60 Respiratory Rate 23 10 L 25 H Respiratory Depth Blood Pressure 140/71 152/89 H Blood Pressure Mean 94 110 Pulse Oximetry 96 95 94 Oxygen Delivery Method 04/22/19 11:31 04/22/19 12:00 04/22/19 12:30 Temperature Temperature Source Sepsis Recent Fever Within 48 Hours Sepsis New/Unexplained Change in Mental Status Sepsis Action Taken by Nursing Pulse Rate 60 60 63 Pulse Rate from SpO2 Sensor 60 60 62 Respiratory Rate 25 H 18 19 Respiratory Depth Blood Pressure 165/87 H 146/71 H Blood Pressure Mean 113 96 Pulse Oximetry 94 96 96 Oxygen Delivery Method Vital signs reviewed. General: Well-appearing, in no significant distress. HEENT: No scleral icterus, PERRLA, neck supple. Atraumatic. Cardiovascular: Regular rate and rhythm, no extra sounds. Pulmonary: Clear to auscultation bilaterally, normal work of breathing. Abdomen: Soft, nontender, nondistended, positive bowel sounds. Musculoskeletal: Atraumatic, no peripheral edema. Large swelling/ecchymosis over the left anterior chest with secondary ecchymosis along the lower pectoralis muscles bilaterally. Incision intact, no drainage, no erythema. Tender to palpation. Neurologic: Patient awake alert and oriented x 3. Skin: Warm, dry, skin changes/postoperative findings as above. Course 0902: Past medical records reviewed. The patient was evaluated in room B4B. A complete history and physical examination was performed. 0951: I discussed the patients case with Dr. Krystian Hairston Cardiology. 1240: I spoke to Dr. Boland. He evaluated the patient and recommends admission. He is asking that medicine admit the patient. 1251: I discussed the patients case with NILES Hansen Hospitalist. She will evaluate the patient for further management. Administered Medications Discontinued Medications Allopurinol (Zyloprim) 300 mg PO DAILY [facility] Stop: 05/23/19 08:59 Last Admin: 04/23/19 08:34 Dose: 300 mg Documented by: [id number] Cephalexin HCl (Keflex) 250 mg PO NOW ONE Stop: 04/23/19 11:27 Last Admin: 04/23/19 12:07 Dose: 250 mg Documented by: [id number] Fenofibrate (Fenofibrate) 48 mg PO DAILY [facility] Stop: 05/23/19 08:59 Last Admin: 04/23/19 08:34 Dose: 48 mg Documented by: [id number] Hydralazine HCl (Apresoline) 50 mg PO BID [facility] Stop: 05/22/19 20:59 Last Admin: 04/23/19 08:35 Dose: 50 mg Documented by: [id number] Admin: 04/22/19 21:29 Dose: 50 mg Documented by: [id number] Phytonadione 2.5 mg/ Sodium (Chloride) 50.25 mls @ 100.5 mls/hr IV ONE ONE Stop: 04/22/19 10:17 Last Admin: 04/22/19 12:44 Dose: Not Given Documented by: [id number] Phytonadione 5 mg/ Sodium (Chloride) 50.5 mls @ 101 mls/hr IV TODAY@1300 ONE Stop: 04/22/19 13:29 Last Infusion: 04/22/19 13:56 Dose: 0 mls/hr Documented by: [id number] Admin: 04/22/19 13:30 Dose: 101 mls/hr Documented by: [id number] Cefazolin Sodium (Ancef 1000mg) 1,000 mg in 7.5 mls @ 2.5 mls/min IV BID [facility]; Protocol Stop: 05/02/19 12:59 Last Admin: 04/23/19 09:25 Dose: 2.5 mls/min Documented by: [id number] Admin: 04/22/19 21:44 Dose: 2.5 mls/min Documented by: [id number] Admin: 04/22/19 13:25 Dose: 2.5 mls/min Documented by: [id number] Insulin Aspart (Novolog Flexpen) 0 units SC ACHS [facility]; Protocol Stop: 05/22/19 16:29 Last Admin: 04/22/19 21:33 Dose: 4 units Documented by: [id number] Cosigned by: [id number] Admin: 04/22/19 17:53 Dose: 22 units Documented by: [id number] Cosigned by: [id number] Insulin Aspart (Novolog Flexpen) 0 units SC 0200 ONE; Protocol Stop: 04/23/19 02:01 Last Admin: 04/23/19 02:16 Dose: Not Given Documented by: [id number] Cosigned by: [id number] Insulin Aspart (Novolog Mix 70/30) 95 units SC QDB [facility]; Protocol Stop: 04/23/19 09:00 Last Admin: 04/23/19 08:33 Dose: 95 units Documented by: [id number] Cosigned by: [id number] Insulin Human NPH (Novolin N U-100 Nph Per Unit) 60 units SQ TODAY@1700 [facility]I; Protocol Stop: 04/22/19 17:01 Last Admin: 04/22/19 17:52 Dose: 60 units Documented by: [id number] Cosigned by: [id number] Levothyroxine Sodium (Synthroid) 112 mcg PO DAILYBB [facility] Stop: 05/23/19 06:29 Last Admin: 04/23/19 06:20 Dose: 112 mcg Documented by: [id number] Lisinopril (Zestril) 2.5 mg PO QAM [facility] Stop: 05/23/19 08:59 Last Admin: 04/23/19 08:34 Dose: 2.5 mg Documented by: [id number] Metoprolol Tartrate (Lopressor) 50 mg PO BID [facility] Stop: 05/22/19 20:59 Last Admin: 04/23/19 08:34 Dose: 50 mg Documented by: [id number] Admin: 04/22/19 21:29 Dose: 50 mg Documented by: [id number] Morphine Sulfate (Morphine Sulfate) 4 mg IV NOW STA Stop: 04/22/19 13:34 Last Admin: 04/22/19 14:04 Dose: 4 mg Documented by: [id number] Morphine Sulfate (Morphine Sulfate) 4 mg IV Q6H PRN PRN Reason: Severe Pain (raing 7-10) Stop: 05/06/19 14:09 Last Admin: 04/22/19 21:25 Dose: 4 mg Documented by: [id number] Oxycodone/Acetaminophen (Percocet 5mg/325mg) 1 tab PO Q6H PRN PRN Reason: Pain (rating 1-6) Stop: 05/06/19 14:09 Last Admin: 04/23/19 07:38 Dose: 1 tab Documented by: [id number] Senna/Docusate Sodium (Senokot S) 1 tab PO QAM [facility] Stop: 05/23/19 08:59 Last Admin: 04/23/19 08:34 Dose: 1 tab Documented by: [id number] Simvastatin (Zocor) 40 mg PO DAILY [facility] Stop: 05/23/19 08:59 Last Admin: 04/23/19 08:34 Dose: 40 mg Documented by: [id number] Medical Decision Making Differential Diagnosis Differential diagnosis includes: abscess, hematoma, seroma, soft tissue edema, cellulitis, and malpositioning. Medical Records Attestation: I reviewed the patient's medical records. Home Medications Current Medication List: was personally reviewed by me Laboratory Data Attestation: I reviewed the patient's lab results. Result diagrams: 04/23/19 07:51 04/23/19 07:51 Lab Results 04/22/19 04/22/19 04/22/19 Range/Units 09:04 09:04 09:04 WBC 9.35 (4.8-10.8) K/uL RBC 4.22 L (4.7-6.1) M/uL Hgb 12.8 L (14.0-18.0) g/dL Hct 36.8 L (42-52) % MCV 87.2 (80-100) fL MCH 30.3 (25-34) pg MCHC 34.8 (32-36) g/dL RDW Std Deviation 46.0 (36.4-46.3) fL RDW Coeff of Nicolasa 14.4 (11.5-14.5) % Plt Count 187 (130-400) K/uL MPV 10.0 (7.4-10.4) fL Immature Gran % (Auto) 0.2 % Neut % (Auto) 64.0 % Lymph % (Auto) 20.1 % Hayes % (Auto) 9.7 % Eos % (Auto) 5.6 % Baso % (Auto) 0.4 % Immature Gran # (Auto) 0.02 (0.00-0.02) K/uL Neut # (Auto) 5.98 (1.4-6.5) K/uL Lymph # (Auto) 1.88 (1.2-3.4) K/uL Hayes # (Auto) 0.91 H (0.11-0.59) K/uL Eos # (Auto) 0.52 H (0-0.5) K/uL Baso # (Auto) 0.04 (0-0.2) K/uL PT 37.1 H (9.0-12.0) Seconds INR 4.0 H (0.9-1.1) APTT 42.4 H (21.0-31.0) Seconds PTT Ratio 1.6 Sodium 137 (136-145) mmol/L Potassium 4.7 (3.5-5.1) mmol/L Chloride 106 (98-107) mmol/L Carbon Dioxide 22 (21-32) mmol/L Anion Gap 8.0 (3-11) BUN 47 H (7-18) mg/dl Creatinine 2.50 H (0.6-1.4) mg/dl Est Cr Clr Drug Dosing 36.2 ml/min Est GFR ( Amer) 28.5 Est GFR (Non-Af Amer) 24.6 BUN/Creatinine Ratio 18.6 (10-20) Glucose 261 H (70-99) mg/dl Calcium 10.1 (8.5-10.1) mg/dl Total Bilirubin 0.4 (0.2-1) mg/dl AST 17 (15-37) U/L ALT 20 (12-78) U/L Alkaline Phosphatase 62 (45-117) U/L Total Protein 7.9 (6.4-8.2) gm/dl Albumin 3.6 (3.4-5.0) gm/dl Globulin 4.3 H (2.5-4.0) gm/dl Albumin/Globulin Ratio 0.8 L (0.9-2) Imaging Data Radiologist's Impression: Radiology results as stated below per my review and the radiologist's interpretation: XR chest 2V routine HISTORY: pacer placement large hematoma COMPARISON: Chest 01/03/2017. FINDINGS: Left-sided pacemaker/defibrillator is again noted. The leads appear intact. No pneumothorax. No pleural effusions. The heart remains top normal in size. No evidence for pulmonary edema. No focal lung consolidations to suggest pneumonia. Left basilar linear densities favor subsegmental atelectasis are scarring. Old mild anterior wedge-shaped compression deformity within the upper thoracic spine remains unchanged. IMPRESSION: No acute process. Electronically signed by: Boubacar Bryant M.D. 04/22/2019 10:14 AM XR chest 2V routine HISTORY: pacer placement large hematoma COMPARISON: Chest 01/03/2017. FINDINGS: Left-sided pacemaker/defibrillator is again noted. The leads appear intact. No pneumothorax. No pleural effusions. The heart remains top normal in size. No evidence for pulmonary edema. No focal lung consolidations to suggest pneumonia. Left basilar linear densities favor subsegmental atelectasis are scarring. Old mild anterior wedge-shaped compression deformity within the upper thoracic spine remains unchanged. IMPRESSION: No acute process. Electronically signed by: Boubacar Bryant M.D. 04/22/2019 10:14 AM ECG Data Attestation: I personally reviewed and interpreted this ECG as follows: Indication: chest pain Rate (beats per minute): 66 Rhythm: other (Atrial-sensed ventricular-paced) Findings: + other (QTC is 442); no acute ischemic change and no ectopy Blood Pressure Blood Pressure Findings: Low blood pressure Blood Pressure Disposition: further management by hospitalist NEHA Esposito This patient was evaluated and appeared to be in no significant distress. IV access was obtained and laboratory work was drawn. The patient was placed on the hospital monitor and found to be in a paced rhythm. Physical exam reveals a large hematoma surrounding the pacemaker insertion site. INR is 4 today. Initially IV vitamin K was ordered however cardiology, Dr. Boland, was consulted. He was requested PA and lateral chest x-ray and to hold the vitamin K until he evaluates the patient. Chest x-ray is read as above. No acute findings. Dr. Boland evaluated the patient and did order oral vitamin K and antibiotic coverage. Patient will be observed by the hospitalist service, Celsa Ramirez PA-C was consulted. Patient is aware of the plan and agrees. Impression & Plan Postoperative hematoma Discharge Plan Visit Data *Final* Discharge Date/Time: 04/22/19 13:52 Chief Complaint: Chest Pain Stated Complaint: POST FIBULATOR SURGERY - CHEST PAINS ED Provider: Meggan Cortes Discharge Problem: Postoperative hematoma Patient Disposition: Admitted As Inpatient Condition: Good Discharge Instructions Interventions: ED Discharge Assessment Last Done: 04/22/19 13:52 Discharge Problem: Postoperative hematoma Qualifiers: Surgical complication system/body Area: musculoskeletal system Procedure type: non-musculoskeletal Qualified Code(s): M96.841 - Postprocedural hematoma of a musculoskeletal structure following other procedure The scribe's documentation has been prepared under my direction and personally reviewed by me in its entirety. I confirm that the note above accurately reflects all work, treatment, procedures, and medical decision making performed by me.
--- NOTE | 2019-04-22 15:30 | Pharmacy Report ---
Glycemic Control Consultation - Date of Service April 22, 2019 - Scope Scope: Glycemic Pharmacist consulted by ALO Sy on 04/22 for glycemic control and to write orders per [facility] inpatient glycemic control protocol - Objective Weight: 123.5 kg Accuchecks BSG (last 24hrs): 04/22/19 09:04 Glucose 261 H Laboratory Data (last 24hrs): 04/22/19 09:04 Potassium 4.7 Carbon Dioxide 22 Anion Gap 8.0 Creatinine 2.50 H Est Cr Clr Drug Dosing 36.2 - Recent Pertinent Medications Outpatient Anti-diabetic Regimen: * Novolog Mix 70/30 95 units qAM, 85 units qPM * TDD = 180 units * A1c = 11.1 % 05/27/18, updated one pending for tomorrow Risk Factors for Insulin Resistance: * Infection: on Ancef for possible skin/skin structure infection around hematoma site * Recent Surgery: s/p ICD generator change on 04/19 * Diet: type 2 diabetes - Assessment & Plan Assessment & Plan: ASSESSMENT: * 73 y/o male admitted for hematoma s/p pacemaker generator change on 04/19. He is a type 2 diabetic on large doses of insulin as an outpatient. Upon interview, patient reports his insulin doses have continued to increase. He was switched to 70/30 insulin a few years ago. He used to check his BSGs 3x/day but now only checks qAM. He reports never having lows but could not give me good numbers of what he typically averages in the AM. * Outpatient regimen is premixed basal/prandial insulin of Novolog Mix 70/30 insulin. * Pre-mixed insulin is difficult to titrate since it is already in a fixed distribution of basal:prandial insulin. Continuing pre-mixed insulin for admission typically lead to hypoglycemia d/t changing PO status but rapid acting insulin is unable to be held. * Home regimen will be held for admission per pharmacy consult. Will utilize recommended regimen of SQ basal bolus insulin regimen with NPH + NovoLog (CF+CR), giving 70% of the 70/30 PM dose as NPH instead of the usual 50% as BSGs are on the higher side and most likely not good control as an outpatient. PLAN FOR INPATIENT GLYCEMIC CONTROL: * Basal insulin * NPH 60 units x 1 w/ dinner (70% of mixed insulin dose) * Further basal dosing in AM to be determined based on BSGs. With plans for discharge tomorrow AM, can consider restarting outpatient 70/30 regimen. * Bolus insulin - on hold starting 6/1 AM in case 70/30 insulin will be resumed prior to discharge * NovoLog per scale ACHS + 0200 check to provide additional overnight coverage if necessary * Goal Range: Low 110 mg/dL - High 140 mg/dL * Correction Factor: 10 mg/dL/unit * Nutritional / Prandial insulin per carb ratio of 1 unit per 3 grams CHO consumed * A1c already ordered w/ AM labs; however, unsure if this will result before patient is discharged since these are typically delayed on the weekend * Please note that the plan above was derived based on current level of insulin resistance and hospital stress. These recommendations are appropriate for inpatient admission only. Plan of care upon discharge will need to be reassessed to avoid potential outpatient hypo/hyperglycemia. Thank you.
[2019-04-22] MEDS ORDERED: NovoLIN-N (NPH) PER UNIT CHARGE SQ SCH (17:00)
[2019-04-22] MEDS: INSULIN ASPART 100 UNITS/ML 3 ML PEN SC SCH ×2 (17:53→21:33)
[2019-04-22 19:19] LABS: Prothrombin Time 19.5 Seconds (9.0-12.0)
[2019-04-22] MEDS: HydrALAZINE TAB 50 MG TAB PO SCH (21:29)
[2019-04-22] MEDS: METOPROLOL TARTRATE 50 MG TAB PO SCH (21:29)
[2019-04-23] MEDS ORDERED: INSULIN ASPART 100 UNITS/ML 3 ML PEN SC ONE (02:00)
[2019-04-23] MEDS ORDERED: LEVOTHYROXINE SODIUM 112 MCG TABLET PO SCH (06:30)
[2019-04-23] MEDS ORDERED: INSULIN 70% ASPART PROTAMINE/30% ASPART SC SCH (08:00)
[2019-04-23] MEDS: METOPROLOL TARTRATE 50 MG TAB PO SCH (08:34)
[2019-04-23] MEDS: HydrALAZINE TAB 50 MG TAB PO SCH (08:35)
[2019-04-23] MEDS ORDERED: DOCUSATE SODIUM/SENNA 50/8.6MG TAB PO SCH (09:00)
[2019-04-23] MEDS ORDERED: SIMVASTATIN 40 MG TAB PO SCH (09:00)
[2019-04-23] MEDS ORDERED: LISINOPRIL 2.5 MG TAB PO SCH (09:00)
[2019-04-23] MEDS ORDERED: FENOFIBRATE NANOCRYSTALLIZED 48 MG TABLET PO SCH (09:00)
[2019-04-23] MEDS ORDERED: ALLOPURINOL 300 MG TAB PO SCH (09:00)
[2019-04-23 09:01] LABS: Hematocrit (blood only) 38.6 % (42-52); Hemoglobin 12.9 g/dL (14.0-18.0); Mean Corpuscular Hgb Conc 33.4 g/dL (32-36); Mean Corpuscular Volume 88.9 fL (80-100); Mean Platelet Volume 10.6 fL (7.4-10.4); Platelet Count 204 K/uL (130-400); RDW Coefficient of Variation 14.4 % (11.5-14.5); RDW Standard Deviation 47.4 fL (36.4-46.3); Red Blood Count 4.34 M/uL (4.7-6.1); White Blood Count 9.11 K/uL (4.8-10.8)
[2019-04-23 09:06] LABS: INR 1.3 (0.9-1.1); Prothrombin Time 13.2 Seconds (9.0-12.0)
[2019-04-23 09:24] LABS: Calcium 9.7 mg/dl (8.5-10.1); Creatinine Clr Calc Pharmacy 32.3 ml/min; Est GFR (African American) 24.8; Est GFR (Non-African American) 21.4; Potassium 4.9 mmol/L (3.5-5.1)
[2019-04-23] MEDS: CEFAZOLIN 1000MG 1,000 MG/7.5 ML SYR IV SCH (09:25)
--- NOTE | 2019-04-23 10:30 | Cardiology Progress Note ---
Date of Service April 23, 2019 Assessment & Plan (1) Postoperative hematoma: The pacemaker/defibrillator site is clean and dry with ecchymosis. Hematoma appears to have resolved. The patient will remain off of Coumadin. He will have a follow-up Thursday at our clinic and if everything looks good then he can restart his Coumadin at that time. A dry dressing will be placed prior to discharge. (2) Supratherapeutic INR: INR has now normalized. (3) Nonischemic cardiomyopathy: (4) Biventricular ICD (implantable cardioverter-defibrillator) in place: Subjective The patient had an uneventful night. I removed the pressure dressing. All questions were answered. Review of Systems Review of Systems: All systems reviewed & are unremarkable except as noted in HPI & below Nothing additional Physical Exam Physical Exam: General: no acute distress and stated age Head: normocephalic, no masses, lesions, tenderness or abnormalities Eyes: conjunctiva are pink and non-injected, sclera clear Neck: supple, no adenopathy, no bruits, normal jugular venous pulse, no hepatojugular reflux Chest: normal shape and normal respiratory effort Lungs: clear to auscultation and percussion Cardiac Exam: - regular rate & rhythm, no murmurs gallops or rubs - normal S1, normal S2 Pulses: 2(+) throughout Abdomen: abdomen soft, non-tender, no abnormal masses and no hepatosplenomegaly Musculoskeletal: no gait disturbance, no joint inflammation, no deforming arthritis Extremities: Pressure dressing was removed. The pacer site is clean and dry. There is ecchymosis around the pacer site, chest and left arm. Neuro: grossly normal exam Results & Data Vital Signs (Past 12 Hours) Vital Signs Temp Pulse Pulse Resp BP Pulse Ox 04/23/19 07:47 36.8 C 63 18 132/76 95 04/23/19 07:33 61 04/23/19 04:00 36.8 C 62 20 138/73 95 04/22/19 23:56 36.9 C 60 20 135/78 94 04/22/19 23:29 80 Laboratory Results Laboratory Results - last 24 hr 04/22/19 04/22/19 04/22/19 16:41 19:02 20:28 WBC RBC Hgb Hct MCV MCH MCHC RDW Std Deviation RDW Coeff of Nicolasa Plt Count MPV PT 19.5 H INR 2.0 H Sodium Potassium Chloride Carbon Dioxide Anion Gap BUN Creatinine Est Cr Clr Drug Dosing Est GFR ( Amer) Est GFR (Non-Af Amer) BUN/Creatinine Ratio Glucose POC Glucose 159 H 179 H Estimat Average Glucose Hemoglobin A1c Calcium 04/23/19 04/23/19 04/23/19 02:15 07:33 07:51 WBC 9.11 RBC 4.34 L Hgb 12.9 L Hct 38.6 L MCV 88.9 MCH 29.7 MCHC 33.4 RDW Std Deviation 47.4 H RDW Coeff of Nicolasa 14.4 Plt Count 204 MPV 10.6 H PT INR Sodium Potassium Chloride Carbon Dioxide Anion Gap BUN Creatinine Est Cr Clr Drug Dosing Est GFR ( Amer) Est GFR (Non-Af Amer) BUN/Creatinine Ratio Glucose POC Glucose 126 H 140 H Estimat Average Glucose Hemoglobin A1c Calcium 04/23/19 04/23/19 04/23/19 07:51 07:51 07:51 WBC RBC Hgb Hct MCV MCH MCHC RDW Std Deviation RDW Coeff of Nicolasa Plt Count MPV PT 13.2 H INR 1.3 H Sodium 138 Potassium 4.9 Chloride 106 Carbon Dioxide 23 Anion Gap 8.0 BUN 56 H Creatinine 2.80 H D Est Cr Clr Drug Dosing 32.3 Est GFR ( Amer) 24.8 Est GFR (Non-Af Amer) 21.4 BUN/Creatinine Ratio 20.0 Glucose 143 H POC Glucose Estimat Average Glucose Pending Hemoglobin A1c Pending Calcium 9.7 Medications Administered Current Inpatient Medications Acetaminophen (Tylenol) 650 mg PO Q4H PRN PRN Reason: Pain or Fever Stop: 05/22/19 14:09 Al Hydrox/Mg Hydrox/Simethicone (Maalox) 15 ml PO Q4H PRN PRN Reason: Dyspepsia Stop: 05/22/19 14:09 Allopurinol (Zyloprim) 300 mg PO DAILY [facility] Stop: 05/23/19 08:59 Last Admin: 04/23/19 08:34 Dose: 300 mg Documented by: Dextrose (Dextrose 50%) 25 - 50 ml IV UD PRN; Protocol PRN Reason: Hypoglycemia Protocol Stop: 05/22/19 14:09 Fenofibrate (Fenofibrate) 48 mg PO DAILY [facility] Stop: 05/23/19 08:59 Last Admin: 04/23/19 08:34 Dose: 48 mg Documented by: Glucagon (Glucagen) 1 mg SQ UD PRN; Protocol PRN Reason: Hypoglycemia Protocol Stop: 05/22/19 14:09 Glucose (Dex4 Glucose) 4 - 8 tabs PO UD PRN; Protocol PRN Reason: Hypoglycemia Protocol Stop: 05/22/19 14:09 Glucose (Glucose 40%) 15 - 30 gm PO UD PRN; Protocol PRN Reason: Hypoglycemia Protocol Stop: 05/22/19 14:09 Hydralazine HCl (Apresoline) 50 mg PO BID [facility] Stop: 05/22/19 20:59 Last Admin: 04/23/19 08:35 Dose: 50 mg Documented by: Cefazolin Sodium (Ancef 1000mg) 1,000 mg in 7.5 mls @ 2.5 mls/min IV BID [facility]; Protocol Stop: 05/02/19 12:59 Last Admin: 04/23/19 09:25 Dose: 2.5 mls/min Documented by: Insulin Aspart (Novolog Flexpen) 0 units SC ACHS [facility]; Protocol Stop: 05/22/19 16:29 Last Admin: 04/22/19 21:33 Dose: 4 units Documented by: Levothyroxine Sodium (Synthroid) 112 mcg PO DAILYBB [facility] Stop: 05/23/19 06:29 Last Admin: 04/23/19 06:20 Dose: 112 mcg Documented by: Lisinopril (Zestril) 2.5 mg PO QAM [facility] Stop: 05/23/19 08:59 Last Admin: 04/23/19 08:34 Dose: 2.5 mg Documented by: Magnesium Hydroxide (Milk Of Magnesia) 30 ml PO Q12H PRN PRN Reason: Constipation Stop: 05/22/19 14:09 Metoprolol Tartrate (Lopressor) 50 mg PO BID [facility] Stop: 05/22/19 20:59 Last Admin: 04/23/19 08:34 Dose: 50 mg Documented by: Miscellaneous (Carbohydrates For Hypoglycemia) 15 - 30 gm PO UD PRN PRN Reason: Hypoglycemia Treatment Stop: 05/22/19 14:09 Miscellaneous Information (Consult Glycemic Management Pharmacy) 1 ea N/A UD PRN; Protocol PRN Reason: Consult Stop: 05/22/19 14:29 Morphine Sulfate (Morphine Sulfate) 4 mg IV Q6H PRN PRN Reason: Severe Pain (raing 7-10) Stop: 05/06/19 14:09 Last Admin: 04/22/19 21:25 Dose: 4 mg Documented by: Ondansetron HCl (Zofran) 4 mg IV Q6H PRN PRN Reason: Nausea Stop: 05/22/19 14:09 Oxycodone/Acetaminophen (Percocet 5mg/325mg) 1 tab PO Q6H PRN PRN Reason: Pain (rating 1-6) Stop: 05/06/19 14:09 Last Admin: 04/23/19 07:38 Dose: 1 tab Documented by: Polyethylene Glycol (Miralax Powder Packet) 17 gm PO DAILY PRN PRN Reason: Constipation Stop: 05/22/19 14:09 Senna/Docusate Sodium (Senokot S) 1 tab PO QAM [facility] Stop: 05/23/19 08:59 Last Admin: 04/23/19 08:34 Dose: 1 tab Documented by: Simvastatin (Zocor) 40 mg PO DAILY [facility] Stop: 05/23/19 08:59 Last Admin: 04/23/19 08:34 Dose: 40 mg Documented by: (1) Postoperative hematoma Procedure type: non-musculoskeletal Surgical complication system/body Area: musculoskeletal system Qualified Code(s): M96.841 - Postprocedural hematoma of a musculoskeletal structure following other procedure
[2019-04-23 10:50] LABS: Estimated Average Glucose 255 mg/dl; Hemoglobin A1C 10.5 % (4.5-5.6)
[2019-04-23] MEDS ORDERED: OXYCODONE HCL IR 5 MG TAB (IMMEDIATE RELEASE) PO PRN (11:00)
[2019-04-23] MEDS ORDERED: cephALEXin 250 MG CAP PO ONE (11:26)
--- NOTE | 2019-04-23 12:35 | Hospitalist Progress Note ---
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 Postoperative Hematoma Postoperative hematoma from Biventricular ICD (implantable cardioverter- defibrillator) placement Supratherapeutic INR, (INR has now normalized and now INR is 1.3) -presented with left chest hematoma -supratherapeutic INR on presentation as 4 and vitamin K reversed the INR -Initiated on Ancef twice daily, renal dosed per pharmacy -As per hydraulic miner blasting Dr. Thomas, Patient should stop taking warfarin (coumadin) until follow up 04/25/2019 11:30 AM Provider Pacer Clinic [facility] Department Cardiology, [facility] where then the cardiology team will decide if patient should resume coumadin -Patient should stop taking over the counter medications that are NSAID medications (nonsteroidal antiinflammatory drugs ) such as Ibuprofen which may be under brand names such as Aleve, Advil, or motrin -Patient may take acetaminophen such as Tylenol as 325 mg every 6 hours as needed for fever or mild pain -[facility] was check and patient has no active narcotic pain medications active prior to this hospitalization. Patient may take oxycodone every 6 hours as needed for severe pain for the next 4 days -avoid lifting objects that are greater than 1 pound of the left arm keep pacemaker incision site dry -Patient should take cephalexin 250 mg every 12 hours for 10 days to prevent infection of the pacemaker incision site Atrial fibrillation -paced by the Biventricular ICD (implantable cardioverter-defibrillator) -Continue metoprolol for rate control -anticoagulation held Nonischemic cardiomyopathy - Continue medical management with metoprolol, lisinopril, simvastatin Anemia -Hgb stable as 12 x 2 days CKD (chronic kidney disease) stage 4, GFR 15-29 ml/min: -renally adjusted antibiotics Hypertension: Blood pressure elevated likely in setting of pain on initial presentation blood pressure improved as of 04/23/19 Continue home dose hydralazine, metoprolol, lisinopril Type 2 diabetes mellitus without complications and 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 termite treater helper current use of insulin Last A1c 11.1 in the past HbA1c 10.5 on this hospital presentation continue home dose insulin as this suggests better diabetic control over time Patient should arrange for follow up with primary care doctor follow up a ppointment after hospital discharge Main Discharge Diagnosis Postoperative hematoma from Biventricular ICD (implantable cardioverter- defibrillator) placement, Supratherapeutic INR, (INR has now normalized and now INR is 1.3), CKD (chronic kidney disease) stage 4, GFR 15-29 ml/min), Hypertension, Type 2 diabetes mellitus without complications and 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 Thomas, Patient should stop taking warfarin (coumadin) until follow up 04/25/2019 11:30 AM Provider Pacer Clinic [facility] Department Cardiology, [facility] where then the cardiology team will decide if patient should resume coumadin Patient should stop taking over the counter medications that are NSAID medications (nonsteroidal antiinflammatory drugs ) such as Ibuprofen which may be under brand names such as Aleve, Advil, or motrin Patient may take acetaminophen such as Tylenol as 325 mg every 6 hours as needed for fever or mild pain [place] PDMP was check and patient has no active narcotic pain medications active prior to this hospitalization. Patient may take oxycodone every 6 hours as needed for severe pain for the next 4 days avoid lifting objects that are greater than 1 pound of the left arm keep pacemaker incision site dry Patient should take cephalexin 250 mg every 12 hours for 10 days to prevent infection of the pacemaker incision site Patient should arrange for follow up with primary care doctor follow up appointment after hospital discharge Subjective Patient denies acute chest pain. no acute drainage of the pacemaker incision site. no acute shortness of breath. no vomiting. no headache. patient cleared for medical discharge by cardiology service Physical Exam Eyes: PERRL, conjunctivae normal, anicteric sclerae EOM intact bilaterally ENMT: external ear and nose normal, oropharynx normal Neck: trachea midline, no thyromegaly normal visual inspection Respiratory: normal respiratory effort, lungs clear to auscultation Cardiovascular: Rate/Rhythm: regular rhythm and + bradycardic Chest (Breasts): Chest: + mass (left pacemaker incission is closed,no drainage, bruising and swelling) Gastrointestinal (Abdomen): normal bowel sounds, soft, nontender, no hepatosplenomegaly Musculoskeletal: no cyanosis or clubbing, extremities motor strength 5/5 Head/Neck/Chest: normocephalic and head atraumatic Neurologic: PERRL, EOMI, accommodation nl, no face palsy, no dysarthria CN's II-XI intact bilaterally Psychiatric: A+Ox3, euthymic affect Results & Data Vital Signs (Past 12 Hours) Vital Signs Temp Pulse Pulse Resp BP Pulse Ox 04/23/19 07:47 36.8 C 63 18 132/76 95 04/23/19 07:33 61 04/23/19 04:00 36.8 C 62 20 138/73 95 04/22/19 23:56 36.9 C 60 20 135/78 94 04/22/19 23:29 80 (1) Postoperative hematoma Procedure type: non-musculoskeletal Surgical complication system/body Area: musculoskeletal system Qualified Code(s): M96.841 - Postprocedural hematoma of a musculoskeletal structure following other procedure
--- NOTE | 2019-04-23 12:46 | Discharge Summary ---
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 Patient complains of pain at the pocket site that has been present ever since discharge; however, has been getting worse. He also noticed increased swelling over pocket site as well as left breast and very firm/tender to touch. He has developed bruising over left anterior chest wall and extending across precordium. Patient elicits with his past 2 ICD placements he did not experience this. He denies any postoperative fever, chills, sweats, lightheadedness, dizziness, shortness of breath, palpitations, nausea, vomiting, diarrhea, change in bowel or urinary habits. Appetite has been stable and he has been drinking fluids. He has been taking all of his medications including his Coumadin. Admission Exam Per Admitting Provider Gen: WD/WN, M, sitting up at bedside, NAD, pleasant, conversing easily Head: Normocephalic, Atraumatic Eyes: Sclera normal, no conjunctival injection, PERRLA, EOMI ENT: Gross hearing intact, normal pharynx, mucous membranes moist Neck: supple, no adenopathy, No JVD, no bruit, Resp: Clear to auscultation b/l, no wheeze, rales, rhonchi. Normal insp/exp effort, no accessory muscle use CV: + Bi V ICD incision site with significant L ACW and L lateral CW ecchymosis extending under R breast. L breast firm and tender consistent with hematoma Heart: Regular rate, regular rhythm, 2/6 YOLANDA noted LUSB, no rub, gallop, or ectopy Abd: protuberant abdomen +BS x 4, soft, nontender, nondistended Musculoskeletal: moves extremities active rom x 4, strength intact, good biological sciences instructor strength Extremities: No edema bilaterally, R BKA with prosthetic in place Skin: warm, moist, no rash, + L anterior chest wall hematoma, negative turgor, cap refill < 2sec Neuro: Alert and oriented x 3, speech normal, good mood/affect, cran nerve 2-12 intact grossly : deferred Principal Diagnosis Postoperative hematoma from Biventricular ICD (implantable cardioverter- defibrillator) placement, Supratherapeutic INR, (INR has now normalized and now INR is 1.3), CKD (chronic kidney disease) stage 4, GFR 15-29 ml/min), Hypertension, Type 2 diabetes mellitus without complications and with senior living current use of insulin, Anemia (Hemoglobin stable as 12), Nonischemic cardiomyopathy Discharge Exam Eyes PERRL, conjunctivae normal, anicteric sclerae EOM intact bilaterally ENMT external ear and nose normal, oropharynx normal Neck trachea midline, no thyromegaly normal visual inspection Respiratory normal respiratory effort, lungs clear to auscultation Cardiovascular Rate/Rhythm: regular rhythm and + bradycardic Chest (Breasts) Chest: + mass (left pacemaker incission is closed,no drainage, bruising and swelling) Gastrointestinal (Abdomen) normal bowel sounds, soft, nontender, no hepatosplenomegaly Musculoskeletal no cyanosis or clubbing, extremities motor strength 5/5 Head/Neck/Chest: normocephalic and head atraumatic Neurologic PERRL, EOMI, accommodation nl, no face palsy, no dysarthria CN's II-XI intact bilaterally Psychiatric A+Ox3, euthymic affect Discharge Data Allergies Allergy/AdvReac Type Severity Reaction Status Date / Time No Known Allergies Allergy Verified 04/22/19 10:43 Consultations 04/22/19 13:02 Consult Cardiology Routine 04/22/19 13:04 ED Decision to Admit Stat Hospital Course (1) Postoperative hematoma: This is a 73-year-old male who has a significant past medical history of IDDM, atrial fibrillation on Coumadin, HTN, CHF, PVD remote hx of R BKA, hypothyroidism, CAD with history 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 Postoperative Hematoma Postoperative hematoma from Biventricular ICD (implantable cardioverter-defi brillator) placement Supratherapeutic INR, (INR has now normalized and now INR is 1.3) -presented with left chest hematoma -supratherapeutic INR on presentation as 4 and vitamin K reversed the INR -Initiated on Ancef twice daily, renal dosed per pharmacy -As per welder apprentice combination Dr. Thomas, Patient should stop taking warfarin (coumadin) until follow up 04/25/2019 11:30 AM Provider Pacer Clinic [facility] Department Cardiology, [facility] where then the cardiology team will decide if patient should resume coumadin -Patient should stop taking over the counter medications that are NSAID medications (nonsteroidal antiinflammatory drugs ) such as Ibuprofen which may be under brand names such as Aleve, Advil, or motrin -Patient may take acetaminophen such as Tylenol as 325 mg every 6 hours as needed for fever or mild pain -[facility] was check and patient has no active narcotic pain medications active prior to this hospitalization. Patient may take oxycodone every 6 hours as needed for severe pain for the next 4 days -avoid lifting objects that are greater than 1 pound of the left arm keep pacemaker incision site dry -Patient should take cephalexin 250 mg every 12 hours for 10 days to prevent infection of the pacemaker incision site Atrial fibrillation -paced by the Biventricular ICD (implantable cardioverter-defibrillator) -Continue metoprolol for rate control -anticoagulation held Nonischemic cardiomyopathy - Continue medical management with metoprolol, lisinopril, simvastatin Anemia -Hgb stable as 12 x 2 days CKD (chronic kidney disease) stage 4, GFR 15-29 ml/min: -renally adjusted antibiotics Hypertension: Blood pressure elevated likely in setting of pain on initial presentation blood pressure improved as of 04/23/19 Continue home dose hydralazine, metoprolol, lisinopril Type 2 diabetes mellitus without complications 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 Last A1c 11.1 in the past HbA1c 10.5 on this hospital presentation continue home dose insulin as this suggests better diabetic control over time Patient should arrange for follow up with primary care doctor follow up appointment after hospital discharge Main Discharge Diagnosis Postoperative hematoma from Biventricular ICD (implantable cardioverter- defibrillator) placement, Supratherapeutic INR, (INR has now normalized and now INR is 1.3), CKD (chronic kidney disease) stage 4, GFR 15-29 ml/min), Hypertension, Type 2 diabetes mellitus without complications 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 Thomsa, Patient should stop taking warfarin (coumadin) until follow up 04/25/2019 11:30 AM Provider Pacer Clinic [facility] Department Cardiology, [facility] where then the cardiology team will decide if patient should resume coumadin Patient should stop taking over the counter medications that are NSAID medicat ions (nonsteroidal antiinflammatory drugs ) such as Ibuprofen which may be under brand names such as Aleve, Advil, or motrin Patient may take acetaminophen such as Tylenol as 325 mg every 6 hours as needed for fever or mild pain [place] PDMP was check and patient has no active narcotic pain medications active prior to this hospitalization. Patient may take oxycodone every 6 hours as needed for severe pain for the next 4 days avoid lifting objects that are greater than 1 pound of the left arm keep pacemaker incision site dry Patient should take cephalexin 250 mg every 12 hours for 10 days to prevent infection of the pacemaker incision site Patient should arrange for follow up with primary care doctor follow up appointment after hospital discharge Total Time Total Time Spent Total Time Spent (In Minutes): 40 minutes Total Time Includes: Examination of the Patient, Discharge Planning, Medication Reconciliation and Communication With Other Providers Discharge Plan Discharge Items Patient Disposition: Home - Self-Care Reason For Visit: HEMATOMA Discharge Diagnosis: Postoperative hematoma from Biventricular ICD (implantable cardioverter-defibrillator) placement, Supratherapeutic INR, (INR has now normalized and now INR is 1.3), CKD (chronic kidney disease) stage 4, GFR 15-29 ml/min), Hypertension, Type 2 diabetes mellitus without complications 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 Thomas, Patient should stop taking warfarin (coumadin) until follow up 04/25/2019 11:30 AM Provider Pacer Clinic [facility] Department Cardiology, [facility] where then the cardiology team will decide if patient should resume coumadin Patient should stop taking over the counter medications that are NSAID medications (nonsteroidal antiinflammatory drugs ) such as Ibuprofen which may be under brand names such as Aleve, Advil, or motrin Patient may take acetaminophen such as Tylenol as 325 mg every 6 hours as needed for fever or mild pain [place] PDMP was check and patient has no active narcotic pain medications active prior to this hospitalization. Patient may take oxycodone every 6 hours as needed for severe pain for the next 4 days avoid lifting objects that are greater than 1 pound of the left arm keep pacemaker incision site dry Patient should take cephalexin 250 mg every 12 hours for 10 days to prevent infection of the pacemaker incision site Patient should arrange for follow up with primary care doctor follow up appointment after hospital discharge Prescriptions: New acetaminophen 325 mg tablet 325 mg PO Q6H PRN (Reason: fever or mild pain) 5 Days Qty: 20 RF: 0 oxycodone 5 mg Tablet 5 mg PO Q6H PRN (Reason: severe pain) 4 Days Qty: 16 RF: 0 cephalexin 250 mg capsule 250 mg PO Q12H 10 Days Qty: 20 RF: 0 Continued OneTouch Ultra Blue Test Strip strip RF: 0 simvastatin 40 mg tablet 40 mg PO DAILY RF: 0 metoprolol tartrate 50 mg tablet 50 mg PO BID RF: 0 allopurinol 300 mg tablet 300 mg PO DAILY RF: 0 hydralazine 50 mg tablet 50 mg PO BID RF: 0 lisinopril 2.5 mg tablet 2.5 mg PO QAM RF: 0 levothyroxine 112 mcg tablet 112 mcg PO DAILY RF: 0 Novolog Mix 70-30 U-100 Insuln 100 unit/mL (70-30) solution 95 unit subcut QAM RF: 0 fenofibrate nanocrystallized 48 mg tablet 48 mg PO DAILY RF: 0 Novolog Mix 70-30 U-100 Insuln 100 unit/mL (70-30) solution 85 unit subcut QPM RF: 0 Discontinued warfarin 5 mg tablet 10 mg PO DAILY RF: 0 Stand-Alone Forms: Call Back Authorization, [facility] Discharge Orders: Discharge Order (Routine); Ordered 04/23/19 Ordered By: Michael Smith Admission Data Admit Date/Time: 04/22/19 12:58 Attending Provider: Michael Smith Admit Provider: Lizz Jorge Primary Care Provider: Aaron Keller Other Providers: Champ Boland Manabendra Service: Telemetry Other Interventions: Discharge Summary Assessment (RN) Last Done: 04/23/19 11:47 DC Date/Time DO NOT enter until pt leaves facility: 04/23/19 12:35
[2019-04-23] MEDS ORDERED: cephALEXin 250 MG CAP PO SCH (21:00)
== END 2019-04-23 12:35 | disposition home or self-care (01) ==
LOC: 2W 08:39 → ED 08:39 → 2W 13:52

== ENCOUNTER 2020-09-26 20:15 | Inpatient (IN) ==
--- NOTE | 2020-09-26 20:54 | Emergency Department Note ---
History of Present Illness General Chief complaint: Shortness of Breath/Dyspnea Stated complaint: Short of breathe Time Seen by Provider: 09/26/20 20:28 Source: patient Mode of arrival: EMS Limitations: no limitations History of Present Illness Provider complaint: Shortness of breath Maximum Pain Intensity: 0 This is a 74-year-old male who presents to the ED with a chief complaint of shortness of breath and coughing up blood for about 1 to 2 weeks. He does not use home oxygen. He states that his shortness of breath is worse with exertion. It significantly worsened over the past few days. He decided come in for evaluation. Patient is chronically on Coumadin for A. fib. He also has a pacemaker/defibrillator. Home Medications Home Medications Medication Instructions Recorded Confirmed Type allopurinol 300 mg PO QAM 04/22/19 09/27/20 History fenofibrate nanocrystallized 48 mg PO QAM 04/22/19 09/27/20 History hydralazine 50 mg PO BID 04/22/19 09/27/20 History insulin asp prt-insulin aspart 90 unit SUBCUT QPM 04/22/19 09/27/20 History [Novolog Mix 70-30 U-100 Insuln] insulin asp prt-insulin aspart 100 unit SUBCUT QAM 04/22/19 09/27/20 History [Novolog Mix 70-30 U-100 Insuln] levothyroxine 112 mcg PO QAM 04/22/19 09/27/20 History metoprolol tartrate 50 mg PO BID 04/22/19 09/27/20 History simvastatin 40 mg PO QAM 04/22/19 09/27/20 History cholecalciferol (vitamin D3) 1,000 unit PO BID 05/31/19 09/27/20 History [Vitamin D3] omega 6-mcb-wye-fish oil [Fish Oil] 1 cap PO QAM 05/31/19 09/27/20 History warfarin 5 mg PO 3XWK 05/31/19 09/27/20 History furosemide 40 mg PO QAM 09/27/20 09/27/20 History lisinopril 5 mg PO QAM 09/27/20 09/27/20 History warfarin 10 mg PO 4XWK 09/27/20 09/27/20 History Allergies Allergy/AdvReac Type Severity Reaction Status Date / Time No Known Allergies Allergy Verified 09/27/20 00:49 Past Med/Surg History Medical History (Updated 09/27/20 @ 00:24 by Alfonso Novak DO) Atrial fibrillation CAD (coronary artery disease) Cardiac defibrillator in place CHF (congestive heart failure) CKD (chronic kidney disease) stage 4, GFR 15-29 ml/min Diabetes Heart disease Hypertension ICD (implantable cardioverter-defibrillator) battery depletion Pt with BiV ICD at [facility]; for a generator change; discussed the procedure and potential risks with the patient which include but not limited to , arrhythmia, stroke, heart attack, bleeding and infection. consent obtained Kidney disease LBBB (left bundle branch block) Nonischemic cardiomyopathy Postoperative hematoma PVD (peripheral vascular disease) T2DM (type 2 diabetes mellitus) Surgical History Amputated below knee Prosthetic in place Biventricular ICD (implantable cardioverter-defibrillator) in place initially placed in 2007 secondary to ischemic [employer] and converted to a BiV in 02/2013 with recent generator exchange 04/19/19 History of left heart catheterization Family History Father Stroke Mother Diabetes Social History Smoking Status: Former smoker Tobacco Type: Cigarettes Cigarettes Per Day: 1984; Second Hand Exposure: No; Hx Alcohol Use: No Hx Substance Use: No Preferred Language: [place] Communication Ability: Effective Partnership Manager Required: No Beliefs That Will Affect Care: None Current Living Situation: Alone Feels Safe at Home: Yes Assistive Devices: Cane and Prosthesis Review of Systems A total of 10 systems reviewed and were otherwise negative Physical Exam Vital Signs Vital Signs - 24 hr 09/26/20 20:10 09/26/20 20:22 09/26/20 20:24 Temperature 37 C Temperature Source Oral Pulse Rate 75 83 Pulse Rate from SpO2 Sensor 74 Pulse Rhythm Regular Pulse Strength Normal Respiratory Rate 31 H 16 Respiratory Effort / Characteristics Labored Non-Labored Respiratory Depth Normal Normal Respiratory Pattern Regular Blood Pressure 177/85 H 177/85 H Blood Pressure Mean 106 115 Blood Pressure Position Sitting Pulse Oximetry 93 86 L Oxygen Delivery Method Room Air Sepsis Recent Fever Within 48 Hours No Sepsis New/Unexplained Change in Mental Status N/A Sepsis Action Taken by Nursing No Action Required Oxygen Flow Rate - Titration Pulse Oximetry Post Tiitration 09/26/20 20:29 09/26/20 20:30 09/26/20 20:31 Temperature Temperature Source Pulse Rate 75 75 77 Pulse Rate from SpO2 Sensor 77 77 75 Pulse Rhythm Pulse Strength Respiratory Rate 26 H 32 H 33 H Respiratory Effort / Characteristics Respiratory Depth Respiratory Pattern Blood Pressure 148/74 H Blood Pressure Mean 113 Blood Pressure Position Pulse Oximetry 92 92 92 Oxygen Delivery Method Sepsis Recent Fever Within 48 Hours Sepsis New/Unexplained Change in Mental Status Sepsis Action Taken by Nursing Oxygen Flow Rate - Titration Pulse Oximetry Post Tiitration 09/26/20 21:00 09/26/20 21:02 09/26/20 21:30 Temperature Temperature Source Pulse Rate 74 81 Pulse Rate from SpO2 Sensor 73 Pulse Rhythm Pulse Strength Respiratory Rate 18 27 H Respiratory Effort / Characteristics Respiratory Depth Respiratory Pattern Blood Pressure 138/77 155/93 H Blood Pressure Mean 106 113 Blood Pressure Position Pulse Oximetry 91 86 L Oxygen Delivery Method Nasal Cannula Sepsis Recent Fever Within 48 Hours Sepsis New/Unexplained Change in Mental Status Sepsis Action Taken by Nursing Oxygen Flow Rate - Titration 6 Pulse Oximetry Post Tiitration 92 09/26/20 21:31 09/26/20 22:00 09/26/20 22:01 Temperature Temperature Source Pulse Rate 83 72 72 Pulse Rate from SpO2 Sensor Pulse Rhythm Pulse Strength Respiratory Rate 18 18 16 Respiratory Effort / Characteristics Respiratory Depth Respiratory Pattern Blood Pressure 133/56 L Blood Pressure Mean 97 Blood Pressure Position Pulse Oximetry Oxygen Delivery Method Sepsis Recent Fever Within 48 Hours Sepsis New/Unexplained Change in Mental Status Sepsis Action Taken by Nursing Oxygen Flow Rate - Titration Pulse Oximetry Post Tiitration 09/26/20 22:30 09/26/20 22:31 09/26/20 23:00 Temperature Temperature Source Pulse Rate 68 63 Pulse Rate from SpO2 Sensor Pulse Rhythm Pulse Strength Respiratory Rate 24 16 14 Respiratory Effort / Characteristics Respiratory Depth Respiratory Pattern Blood Pressure 131/60 Blood Pressure Mean 88 Blood Pressure Position Pulse Oximetry Oxygen Delivery Method Sepsis Recent Fever Within 48 Hours Sepsis New/Unexplained Change in Mental Status Sepsis Action Taken by Nursing Oxygen Flow Rate - Titration Pulse Oximetry Post Tiitration 09/26/20 23:01 Temperature Temperature Source Pulse Rate Pulse Rate from SpO2 Sensor Pulse Rhythm Pulse Strength Respiratory Rate 25 H Respiratory Effort / Characteristics Respiratory Depth Respiratory Pattern Blood Pressure 132/68 Blood Pressure Mean 75 Blood Pressure Position Pulse Oximetry Oxygen Delivery Method Sepsis Recent Fever Within 48 Hours Sepsis New/Unexplained Change in Mental Status Sepsis Action Taken by Nursing Oxygen Flow Rate - Titration Pulse Oximetry Post Tiitration CONSTITUTIONAL/VITAL SIGNS: Reviewed / noted above. GENERAL: Non-toxic in appearance. INTEGUMENTARY: Warm, dry, and [place]. HEAD: Normocephalic. EYES: without scleral icterus or trauma. ENT/OROPHARYNX: clear and moist. LYMPHADENOPATHY/NECK: Is supple without lymphadenopathy or meningismus. RESPIRATORY: Lungs coarse breath sounds in the bases. Mild increased work of breathing. Patient coughed up some thick blood about a teaspoonful during my exam. CARDIOVASCULAR: Regular rate and rhythm. GI/ABDOMEN: Soft and nontender. No organomegaly or pulsatile mass. No rebound or guarding. Normal bowel sounds. EXTREMITIES: Warm and well perfused. BACK: No CVA tenderness. NEUROLOGICAL: Intact without focal deficits. PSYCHIATRIC: normal affect. MUSCULOSKELETAL: Normally developed with good muscle tone. TRIAGE NURSING DOCUMENTATION REVIEWED. Course Administered Medications Azithromycin 500 mg/ Dextrose 255 mls @ 125 mls/hr IV NOW STA Stop: 09/27/20 02:23 Last Admin: 09/27/20 00:40 Dose: 125 mls/hr Documented by: [id number] Discontinued Medications Ceftriaxone Sodium (Rocephin) 1,000 mg in 50 mls @ 100 mls/hr IV NOW STA Stop: 09/27/20 00:47 Last Infusion: 09/27/20 01:12 Dose: 0 mls/hr Documented by: [id number] Admin: 09/27/20 00:40 Dose: 100 mls/hr Documented by: [id number] Medical Decision Making Differential Diagnosis The differential was considered includes acute myocardial infarction, acute coronary syndrome, myocarditis, pericarditis, pericardial effusions /tamponad, esophageal perforation, pulmonary embolism, pneumonia, pneumothorax, cardiomyopathy, congestive heart, anemia , COPD/asthma exacerbation. Medical Records Attestation: I reviewed the patient's medical records. Home Medications Current Medication List: was personally reviewed by me Laboratory Data Attestation: I reviewed the patient's lab results. Result diagrams: 09/26/20 21:19 09/26/20 21:19 Lab Results 09/26/20 09/26/20 09/26/20 Range/Units 21:19 21:19 21:19 WBC 12.90 H (4.8-10.8) K/uL RBC 3.68 L (4.7-6.1) M/uL Hgb 10.5 L (14.0-18.0) g/dL Hct 33.7 L (42-52) % MCV 91.6 (80-100) fL MCH 28.5 (25-34) pg MCHC 31.2 L (32-36) g/dL RDW Std Deviation 53.2 H (36.4-46.3) fL RDW Coeff of Nicolasa 16.8 H (11.5-14.5) % Plt Count 368 (130-400) K/uL MPV 10.3 (7.4-10.4) fL Immature Gran % (Auto) 0.5 % Neut % (Auto) 73.2 % Lymph % (Auto) 14.4 % Winston % (Auto) 7.1 % Eos % (Auto) 4.5 % Baso % (Auto) 0.3 % Neut # (Auto) 9.44 H (1.4-6.5) K/uL Lymph # (Auto) 1.86 (1.2-3.4) K/uL Winston # (Auto) 0.92 H (0.11-0.59) K/uL Eos # (Auto) 0.58 H (0-0.5) K/uL Baso # (Auto) 0.04 (0-0.2) K/uL Immature Gran # (Auto) 0.06 H (0.00-0.02) K/uL PT 40.7 H (9.0-12.0) Seconds INR 4.2 H (0.9-1.1) APTT 46.3 H* (21.0-31.0) Seconds PTT Ratio 1.7 Sodium 142 (136-145) mmol/L Potassium 3.5 (3.5-5.1) mmol/L Chloride 106 (98-107) mmol/L Carbon Dioxide 30 (21-32) mmol/L Anion Gap 6.0 (3-11) BUN 52 H (7-18) mg/dl Creatinine 3.50 H (0.6-1.4) mg/dl Est Cr Clr Drug Dosing 25.1 ml/min Est GFR ( Amer) 18.8 Est GFR (Non-Af Amer) 16.2 BUN/Creatinine Ratio 14.7 (10-20) Glucose 53 L* (70-99) mg/dl POC Glucose (70-99) mg/dl Calcium 9.8 (8.5-10.1) mg/dl Total Bilirubin 0.6 (0.2-1) mg/dl AST 24 (15-37) U/L ALT 23 (12-78) U/L Alkaline Phosphatase 55 (45-117) U/L Troponin I 1.030 H* (0-0.045) ng/ml NT-Pro-B Natriuret Pep 9251 H (0-900) pg/ml Total Protein 8.1 (6.4-8.2) gm/dl Albumin 3.3 L (3.4-5.0) gm/dl Globulin 4.8 H (2.5-4.0) gm/dl Albumin/Globulin Ratio 0.7 L (0.9-2) 09/27/20 Range/Units 01:09 WBC (4.8-10.8) K/uL RBC (4.7-6.1) M/uL Hgb (14.0-18.0) g/dL Hct (42-52) % MCV (80-100) fL MCH (25-34) pg MCHC (32-36) g/dL RDW Std Deviation (36.4-46.3) fL RDW Coeff of Nicolasa (11.5-14.5) % Plt Count (130-400) K/uL MPV (7.4-10.4) fL Immature Gran % (Auto) % Neut % (Auto) % Lymph % (Auto) % Winston % (Auto) % Eos % (Auto) % Baso % (Auto) % Neut # (Auto) (1.4-6.5) K/uL Lymph # (Auto) (1.2-3.4) K/uL Winston # (Auto) (0.11-0.59) K/uL Eos # (Auto) (0-0.5) K/uL Baso # (Auto) (0-0.2) K/uL Immature Gran # (Auto) (0.00-0.02) K/uL PT (9.0-12.0) Seconds INR (0.9-1.1) APTT (21.0-31.0) Seconds PTT Ratio Sodium (136-145) mmol/L Potassium (3.5-5.1) mmol/L Chloride (98-107) mmol/L Carbon Dioxide (21-32) mmol/L Anion Gap (3-11) BUN (7-18) mg/dl Creatinine (0.6-1.4) mg/dl Est Cr Clr Drug Dosing ml/min Est GFR ( Amer) Est GFR (Non-Af Amer) BUN/Creatinine Ratio (10-20) Glucose (70-99) mg/dl POC Glucose 199 H (70-99) mg/dl Calcium (8.5-10.1) mg/dl Total Bilirubin (0.2-1) mg/dl AST (15-37) U/L ALT (12-78) U/L Alkaline Phosphatase (45-117) U/L Troponin I (0-0.045) ng/ml NT-Pro-B Natriuret Pep (0-900) pg/ml Total Protein (6.4-8.2) gm/dl Albumin (3.4-5.0) gm/dl Globulin (2.5-4.0) gm/dl Albumin/Globulin Ratio (0.9-2) Imaging Data Attestation: I personally reviewed and interpreted this imaging study as follows: My Impression: Chest x-ray: Per my interpretation mild congestive changes Radiologist's Impression: XR chest 1V portable HISTORY: Dyspnea COMPARISON: Chest 05/31/2019. FINDINGS: No pneumothorax. No pleural effusions. There is left-sided pacemaker/defibrillator. No new focal lung consolidations to suggest pneumonia. The heart remains mildly enlarged. There is progressive interstitial and vascular thickening consistent with mild pulmonary edema. IMPRESSION: Interval progression of the mild interstitial pulmonary edema. CT scan of the chest: Multiple upper mediastinal and perivesicular and paratracheal lymph nodes. Mild bilateral lung hazy groundglass opacities. Consider inflammation versus atypical pneumonia. ECG Data Attestation: I personally reviewed and interpreted this ECG as follows: Indication: + SOB/dyspnea Rate (beats per minute): 75 Rhythm: + other (Ventricular paced rhythm) ECG ST segments: no ST elevation ECG Findings: no PVCs MDM Narrative The patient presents with a chief complaint of a cough productive of bloody gross blood for the past week to 2 weeks. He has become progressively short of breath over the past 2 weeks as well. He was found to have a pulse ox of 86% on room air here. His initial blood pressure was 177/85 but when I saw him it was 145/80. He was on oxygen saturating in the mid 90s. He does not use home oxygen. He states the oxygen helped his breathing. A chest x-ray reveals some mild congestive changes. The patient's clinical exam is not really consistent with acute pulmonary edema. CBC is unremarkable. INR is 4.2. BUN is 52 and creatinine is 3.5. This is near the patient's baseline. Glucose was 53. Troponin was elevated at 1.03. BNP is elevated 9251. EKG showed a ventricular paced rhythm at a rate of 75 without acute ischemic changes. CT scan of the chest reveals multiple upper mediastinal and perivesicular and paratracheal lymph nodes. There is also mild bilateral lung hazy groundglass opacities. Consider inflammation versus atypical pneumonia. The patient was started on IV Rocephin and IV Zithromax. A bio fire test has been sent. The patient will be seen by the hospitalist for further inpatient evaluation and care. Impression & Plan Bilateral interstitial pneumonia, Hypoxia, Cough with hemoptysis, Elevated INR, Elevated troponin, Chronic kidney insufficiency Discharge Plan Visit Data Chief Complaint: Shortness of Breath/Dyspnea Stated Complaint: Short of breathe ED Provider: Alfonso Novak Discharge Problem: Bilateral interstitial pneumonia, Hypoxia, Cough with hemoptysis, Elevated INR, Elevated troponin, Chronic kidney insufficiency Patient Disposition: Admitted As Inpatient Forms Stand Alone Forms: My [facility], Virtual Emergency Department, Important Visit Information Prescriptions Prescriptions: No Action simvastatin 40 mg tablet 40 mg PO QAM RF: 0 metoprolol tartrate 50 mg tablet 50 mg PO BID RF: 0 allopurinol 300 mg tablet 300 mg PO QAM RF: 0 hydralazine 50 mg tablet 50 mg PO BID RF: 0 levothyroxine 112 mcg tablet 112 mcg PO QAM RF: 0 insulin asp prt-insulin aspart [Novolog Mix 70-30 U-100 Insuln] 100 unit/mL (70-30) solution 100 unit subcut QAM RF: 0 fenofibrate nanocrystallized 48 mg tablet 48 mg PO QAM RF: 0 insulin asp prt-insulin aspart [Novolog Mix 70-30 U-100 Insuln] 100 unit/mL (70-30) solution 90 unit subcut QPM RF: 0 warfarin 5 mg tablet 5 mg PO 3XWK RF: 0 cholecalciferol (vitamin D3) [Vitamin D3] 1,000 unit Capsule 1,000 unit PO BID RF: 0 Fish Oil 360 mg-144 mg- 216 mg-1,200 mg Capsule,Delayed Release(Dr/Ec) 1 cap PO QAM RF: 0 lisinopril 5 mg tablet 5 mg PO QAM RF: 0 furosemide 40 mg tablet 40 mg PO QAM RF: 0 warfarin 5 mg tablet 10 mg PO 4XWK RF: 0 Referrals Referrals: Aaron Keller MD [Primary Care Provider] -
--- NOTE | 2020-09-26 20:57 | XRay Report ---
XR chest 1V portable HISTORY: Dyspnea COMPARISON: Chest 05/31/2019. FINDINGS: No pneumothorax. No pleural effusions. There is left-sided pacemaker/defibrillator. No new focal lung consolidations to suggest pneumonia. The heart remains mildly enlarged. There is progressi ve interstitial and vascular thickening consistent with mild pulmonary edema. IMPRESSION: Interval progression of the mild interstitial pulmonary edema. ACT 112: Negative or not required by law. Electronically signed by: Boubacar Bryant M.D. 09/26/2020 8:56 PM
[2020-09-26 21:57] LABS: Basophils # (auto) 0.04 K/uL (0-0.2); Basophils % (auto) 0.3 %; Eosinophils # (auto) 0.58 K/uL (0-0.5); Eosinophils % (auto) 4.5 %; Hematocrit (blood only) 33.7 % (42-52); Hemoglobin 10.5 g/dL (14.0-18.0); Immature Granulocytes # (auto) 0.06 K/uL (0.00-0.02); Immature Granulocytes % (auto) 0.5 %; Lymphocytes # (auto) 1.86 K/uL (1.2-3.4); Lymphocytes % (auto) 14.4 %; Mean Corpuscular Hemoglobin 28.5 pg (25-34); Mean Corpuscular Hgb Conc 31.2 g/dL (32-36); Mean Corpuscular Volume 91.6 fL (80-100); Mean Platelet Volume 10.3 fL (7.4-10.4); Monocytes # (auto) 0.92 K/uL (0.11-0.59); Monocytes % (auto) 7.1 %; Neutrophils # (auto) 9.44 K/uL (1.4-6.5); Neutrophils % (auto) 73.2 %; Platelet Count 368 K/uL (130-400); RDW Coefficient of Variation 16.8 % (11.5-14.5); RDW Standard Deviation 53.2 fL (36.4-46.3); Red Blood Count 3.68 M/uL (4.7-6.1)
[2020-09-26 22:06] LABS: INR 4.2 (0.9-1.1); Partial Thromboplastin Ratio 1.7; Prothrombin Time 40.7 Seconds (9.0-12.0)
[2020-09-26 22:12] LABS: Partial Thromboplastin Time 46.3 Seconds (21.0-31.0)
[2020-09-26 22:20] LABS: Albumin Globulin Ratio 0.7 (0.9-2); Albumin Level 3.3 gm/dl (3.4-5.0); BUN Creatinine Ratio 14.7 (10-20); Bilirubin,Total 0.6 mg/dl (0.2-1); Calcium 9.8 mg/dl (8.5-10.1); Creatinine Clr Calc Pharmacy 25.1 ml/min; Est GFR (African American) 18.8; Est GFR (Non-African American) 16.2; Globulin 4.8 gm/dl (2.5-4.0); Potassium 3.5 mmol/L (3.5-5.1); Total Protein 8.1 gm/dl (6.4-8.2); Troponin I 1.03 ng/ml (0-0.045)
[2020-09-27] MEDS ORDERED: cefTRIAXone SODIUM 1,000 MG/50 ML BAG IV STA (00:18)
[2020-09-27] MEDS ORDERED: AZITHROMYCIN 500 MG in DEXTROSE 5% 250 ML IV STA (00:21)
--- NOTE | 2020-09-27 01:33 | History & Physical Report ---
Date of Service September 27, 2020 Assessment & Plan (1) Cough with hemoptysis: 74yo C male presenting with 3-4 days of osman hemoptysis. ?infectious process vs DAH, patient with supratherapeutic INR of 4.2, low concern for PE. He is hemodynamically stable, no respiratory distress, saturating well on minimal oxygen by nasal cannula at present. Biofire +Rhinovirus -Admit to medical with telemetry -Supplemental O2 as needed, humidified -Ceftriaxone and Azithromycin for possible CAP -Hold Coumadin, continue to monitor INR -Pulmonary consultation appreciated Present on Admission?: Yes (2) Bilateral interstitial pneumonia: Concern for PNA -Follow blood cultures -Azithromycin and Ceftriaxone as above -Supplemental O2 as needed -Tylenol as needed Present on Admission?: Yes (3) Elevated INR: Patient on Coumadin. Elevated INR of 4.2. ?DAH as source of hemoptysis -Hold Coumadin -Repeat INR in AM Present on Admission?: Yes (4) Elevated troponin: History of CAD. Patient without CP. No EKG evidence of ischemia -Trend troponin -Continue cardiac medications - Metoprolol, Lisinopril, Simvastatin and Hydralazine Present on Admission?: Yes (5) Chronic kidney insufficiency: Elevated BUN=52, Cr=3.5 -Avoid nephrotoxic agents -Renal dosing where needed (6) Nonischemic cardiomyopathy: Patient with history of NICM s/p AICD placement in 2007 with conversion to Bi-ventricular AICD in 2012 -Lasix 40mg IV daily -Continue Metoprolol, Lisinopril, Hydralazine -Monitor I/Os, weights Present on Admission?: Yes (7) Biventricular ICD (implantable cardioverter-defibrillator) in place: No discharges reported -Monitor (8) Atrial fibrillation: Currently with paced rhythm. Anticoagulated on Coumadin with supratherapeutic INR -Continue Metoprolol 50mg po BID -Hold Coumadin Present on Admission?: Yes (9) Hypertension: Blood pressure stable -Continue Hydralazine -0Conitnue Lisinopril -Continue Metoprolol -Continue to monitor Present on Admission?: Yes History of Present Illness Chief Complaint: Hemoptysis Primary Care Provider: Aaron Keller MD Elfego Warren is a 74yo C male with history of atrial fibrillation on Coumadin anticoagulation, CAD, CHF, CKD, DM, HTN presenting with 1-2 weeks of cough, worsening SOB and osman hemoptysis over the last 3-4 days. Patient reports coug leyla up bright red blood mixed with sputum. No nosebleed or dental complaints. He denies CP, fever, chills, nausea, vomiting, diarrhea or constipation. Covid-19 testing performed in ER NEGATIVE Patient hypoxic in ER to 86% on RA ER Course: Azithromycin, Ceftriaxone Allergies Allergy/AdvReac Type Severity Reaction Status Date / Time No Known Allergies Allergy Verified 09/27/20 00:49 Home Medications Home Medications Medication Instructions Recorded Confirmed Type allopurinol 300 mg PO QAM 04/22/19 09/27/20 History fenofibrate nanocrystallized 48 mg PO QAM 04/22/19 09/27/20 History hydralazine 50 mg PO BID 04/22/19 09/27/20 History insulin asp prt-insulin aspart 90 unit SUBCUT QPM 04/22/19 09/27/20 History [Novolog Mix 70-30 U-100 Insuln] insulin asp prt-insulin aspart 100 unit SUBCUT QAM 04/22/19 09/27/20 History [Novolog Mix 70-30 U-100 Insuln] levothyroxine 112 mcg PO QAM 04/22/19 09/27/20 History metoprolol tartrate 50 mg PO BID 04/22/19 09/27/20 History simvastatin 40 mg PO QAM 04/22/19 09/27/20 History cholecalciferol (vitamin D3) 1,000 unit PO BID 05/31/19 09/27/20 History [Vitamin D3] omega 0-fdd-kcs-fish oil [Fish Oil] 1 cap PO QAM 05/31/19 09/27/20 History warfarin 5 mg PO 3XWK 05/31/19 09/27/20 History furosemide 40 mg PO QAM 09/27/20 09/27/20 History lisinopril 5 mg PO QAM 09/27/20 09/27/20 History warfarin 10 mg PO 4XWK 09/27/20 09/27/20 History Past Med/Surg History Medical History (Updated 09/27/20 @ 03:20 by Nanci Napoles DO) Atrial fibrillation CAD (coronary artery disease) Cardiac defibrillator in place CHF (congestive heart failure) CKD (chronic kidney disease) stage 4, GFR 15-29 ml/min Diabetes Heart disease Hypertension ICD (implantable cardioverter-defibrillator) battery depletion Pt with BiV ICD at [facility]; for a generator change; discussed the procedure and potential risks with the patient which include but not limited to , arrhythmia, stroke, heart attack, bleeding and infection. consent obtained Kidney disease LBBB (left bundle branch block) Nonischemic cardiomyopathy Postoperative hematoma PVD (peripheral vascular disease) T2DM (type 2 diabetes mellitus) Surgical History Amputated below knee Prosthetic in place Biventricular ICD (implantable cardioverter-defibrillator) in place initially placed in 2007 secondary to ischemic [employer] and converted to a BiV in 02/2013 with recent generator exchange 04/19/19 History of left heart catheterization Family History Father Stroke Mother Diabetes Social History Smoking Status: Former smoker Tobacco Type: Cigarettes Cigarettes Per Day: 1984; Second Hand Exposure: No; Hx Alcohol Use: No Hx Substance Use: No Preferred Language: Spanish Communication Ability: Effective 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 Beliefs That Will Affect Care: None Current Living Situation: Alone Feels Safe at Home: Yes Assistive Devices: Cane and Prosthesis Review of Systems Review of Systems: All systems reviewed & are unremarkable except as noted in HPI & below Physical Exam Physical Exam: General: patient resting comfortably, NAD, non-toxic in appearance, AA&O x 4 Skin: warm, dry, intact, no rashes or lesions HEENT: NC/AT, PERRL, EOMI, anicteric sclera, conjunctiva without injection, external ear normal to inspection and nontender, nares patent, moist mucus membranes, dentition intact, no oropharyngeal lesions, neck supple, trachea midline, no LAD, no thyromegaly, no JVD Heart: +S1/S2, regular, no m/r/g Lungs: equal air entry bilaterally, no rales/rhonchi/wheezes Abd: +BS, soft, NT/ND, no masses/organomegaly/ascites Ext: warm, 2+ pulses in UE/LE bilaterally, no clubbing/cyanosis or edema, 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) Vital Signs (Past 12 Hours) Vital Signs Temp Pulse Resp BP Pulse Ox 09/26/20 23:01 25 H 132/68 09/26/20 23:00 14 09/26/20 22:31 63 16 09/26/20 22:30 68 24 131/60 09/26/20 22:01 72 16 09/26/20 22:00 72 18 133/56 L 09/26/20 21:31 83 18 09/26/20 21:30 81 27 H 155/93 H 09/26/20 21:02 86 L 09/26/20 21:00 74 18 138/77 91 09/26/20 20:31 77 33 H 92 09/26/20 20:30 75 32 H 148/74 H 92 09/26/20 20:29 75 26 H 92 09/26/20 20:24 37 C 83 16 177/85 H 86 L 09/26/20 20:22 75 31 H 177/85 H 93 Laboratory Results Lab Results 09/26/20 09/26/20 09/26/20 Range/Units 21:19 21:19 21:19 WBC 12.90 H (4.8-10.8) K/uL RBC 3.68 L (4.7-6.1) M/uL Hgb 10.5 L (14.0-18.0) g/dL Hct 33.7 L (42-52) % MCV 91.6 (80-100) fL MCH 28.5 (25-34) pg MCHC 31.2 L (32-36) g/dL RDW Std Deviation 53.2 H (36.4-46.3) fL RDW Coeff of Nicolasa 16.8 H (11.5-14.5) % Plt Count 368 (130-400) K/uL MPV 10.3 (7.4-10.4) fL Immature Gran % (Auto) 0.5 % Neut % (Auto) 73.2 % Lymph % (Auto) 14.4 % Brooks % (Auto) 7.1 % Eos % (Auto) 4.5 % Baso % (Auto) 0.3 % Neut # (Auto) 9.44 H (1.4-6.5) K/uL Lymph # (Auto) 1.86 (1.2-3.4) K/uL Brooks # (Auto) 0.92 H (0.11-0.59) K/uL Eos # (Auto) 0.58 H (0-0.5) K/uL Baso # (Auto) 0.04 (0-0.2) K/uL Immature Gran # (Auto) 0.06 H (0.00-0.02) K/uL PT 40.7 H (9.0-12.0) Seconds INR 4.2 H (0.9-1.1) APTT 46.3 H* (21.0-31.0) Seconds PTT Ratio 1.7 Sodium 142 (136-145) mmol/L Potassium 3.5 (3.5-5.1) mmol/L Chloride 106 (98-107) mmol/L Carbon Dioxide 30 (21-32) mmol/L Anion Gap 6.0 (3-11) BUN 52 H (7-18) mg/dl Creatinine 3.50 H (0.6-1.4) mg/dl Est Cr Clr Drug Dosing 25.1 ml/min Est GFR ( Amer) 18.8 Est GFR (Non-Af Amer) 16.2 BUN/Creatinine Ratio 14.7 (10-20) Glucose 53 L* (70-99) mg/dl POC Glucose (70-99) mg/dl Calcium 9.8 (8.5-10.1) mg/dl Total Bilirubin 0.6 (0.2-1) mg/dl AST 24 (15-37) U/L ALT 23 (12-78) U/L Alkaline Phosphatase 55 (45-117) U/L Troponin I 1.030 H* (0-0.045) ng/ml NT-Pro-B Natriuret Pep 9251 H (0-900) pg/ml Total Protein 8.1 (6.4-8.2) gm/dl Albumin 3.3 L (3.4-5.0) gm/dl Globulin 4.8 H (2.5-4.0) gm/dl Albumin/Globulin Ratio 0.7 L (0.9-2) Adenovirus (PCR) (NotDetected) B. pertussis DNA (PCR) (NotDetected) B.parapertussis DNA PCR (NotDetected) C. pneumoniae DNA (PCR) (NotDetected) Coronavirus OC43 (PCR) (NotDetected) Coronavirus HKU1 (PCR) (NotDetected) Coronavirus 229E (PCR) (NotDetected) COVID-19 PCR (NotDetected) Coronavirus NL63 (PCR) (NotDetected) Human Metapneumovir PCR (NotDetected) Influenza Type A (PCR) (NotDetected) Influenza Type B (PCR) (NotDetected) M. pneumoniae (PCR) (NotDetected) Parainfluenza 1 (PCR) (NotDetected) Parainfluenza 2 (PCR) (NotDetected) Parainfluenza 3 (PCR) (NotDetected) Parainfluenza 4 (PCR) (NotDetected) RSV (PCR) (NotDetected) Entero/Rhino (PCR) (NotDetected) 09/27/20 09/27/20 Range/Units 00:30 01:09 WBC (4.8-10.8) K/uL RBC (4.7-6.1) M/uL Hgb (14.0-18.0) g/dL Hct (42-52) % MCV (80-100) fL MCH (25-34) pg MCHC (32-36) g/dL RDW Std Deviation (36.4-46.3) fL RDW Coeff of Nicolasa (11.5-14.5) % Plt Count (130-400) K/uL MPV (7.4-10.4) fL Immature Gran % (Auto) % Neut % (Auto) % Lymph % (Auto) % Brooks % (Auto) % Eos % (Auto) % Baso % (Auto) % Neut # (Auto) (1.4-6.5) K/uL Lymph # (Auto) (1.2-3.4) K/uL Brooks # (Auto) (0.11-0.59) K/uL Eos # (Auto) (0-0.5) K/uL Baso # (Auto) (0-0.2) K/uL Immature Gran # (Auto) (0.00-0.02) K/uL PT (9.0-12.0) Seconds INR (0.9-1.1) APTT (21.0-31.0) Seconds PTT Ratio Sodium (136-145) mmol/L Potassium (3.5-5.1) mmol/L Chloride (98-107) mmol/L Carbon Dioxide (21-32) mmol/L Anion Gap (3-11) BUN (7-18) mg/dl Creatinine (0.6-1.4) mg/dl Est Cr Clr Drug Dosing ml/min Est GFR ( Amer) Est GFR (Non-Af Amer) BUN/Creatinine Ratio (10-20) Glucose (70-99) mg/dl POC Glucose 199 H (70-99) mg/dl Calcium (8.5-10.1) mg/dl Total Bilirubin (0.2-1) mg/dl AST (15-37) U/L ALT (12-78) U/L Alkaline Phosphatase (45-117) U/L Troponin I (0-0.045) ng/ml NT-Pro-B Natriuret Pep (0-900) pg/ml Total Protein (6.4-8.2) gm/dl Albumin (3.4-5.0) gm/dl Globulin (2.5-4.0) gm/dl Albumin/Globulin Ratio (0.9-2) Adenovirus (PCR) Not Detected (NotDetected) B. pertussis DNA (PCR) Not Detected (NotDetected) B.parapertussis DNA PCR Not Detected (NotDetected) C. pneumoniae DNA (PCR) Not Detected (NotDetected) Coronavirus OC43 (PCR) Not Detected (NotDetected) Coronavirus HKU1 (PCR) Not Detected (NotDetected) Coronavirus 229E (PCR) Not Detected (NotDetected) COVID-19 PCR Not Detected (NotDetected) Coronavirus NL63 (PCR) Not Detected (NotDetected) Human Metapneumovir PCR Not Detected (NotDetected) Influenza Type A (PCR) Not Detected (NotDetected) Influenza Type B (PCR) Not Detected (NotDetected) M. pneumoniae (PCR) Not Detected (NotDetected) Parainfluenza 1 (PCR) Not Detected (NotDetected) Parainfluenza 2 (PCR) Not Detected (NotDetected) Parainfluenza 3 (PCR) Not Detected (NotDetected) Parainfluenza 4 (PCR) Not Detected (NotDetected) RSV (PCR) Not Detected (NotDetected) Entero/Rhino (PCR) DETECTED A* (NotDetected) Diagnostic Findings XR chest 1V portable HISTORY: Dyspnea COMPARISON: Chest 05/31/2019. FINDINGS: No pneumothorax. No pleural effusions. There is left-sided pacemaker/defibrillator. No new focal lung consolidations to suggest pneumonia. The heart remains mildly enlarged. There is progressive interstitial and vascular thickening consistent with mild pulmonary edema. IMPRESSION: Interval progression of the mild interstitial pulmonary edema. ACT 112: Negative or not required by law. Electronically signed by: Boubacar Bryant M.D. 09/26/2020 8:56 PM Dictated: 09/26/202054 Transcribed: 09/26/202054 CT CHEST Without Contrast: Left chest wall cardiac pacer. Multiple upper mediastinal perivascular, peritracheal lymph nodes measuring up to 1.7 cm. Multiple cluster of lymph nodes at the AP window measuring up to 1.8 cm. Right subcarinal 2 cm lymph node. Small bilateral pleural effusion. Mild bilateral lung hazy groundglass opacities and areas of air trapping. Consider inflammation versus atypical pneumonia Cholelithiasis. Mild fatty infiltration of liver. 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 ECG Additional Comments: EKG with A-sense, V-paced, no evidence of acute ischemia Code Status & VTE Plan Code Status FULL VTE Prophylaxis Plan VTE Prophylaxis will be ordered: Yes PG Care Time/CCT Total # of Minutes Spent Total Time Spent with Patient: Total time spent is greater than 50% in coordination of care (as documented) at patient's floor/unit and/or counseling patient: Coding Level of Care Code 70999 Initial Inpt Care Lvl 3 Diagnoses Cough with hemoptysis R04.2 Bilateral interstitial pneumonia J84.9 Elevated INR R79.1 Elevated troponin R77.8 Chronic kidney insufficiency N18.9 Nonischemic cardiomyopathy I42.8 Biventricular ICD (implantable cardioverter-defibrillator) in place Z95.810 Atrial fibrillation I48.91 Atrial fibrillation type: unspecified Hypertension I10 Hypertension type: essential hypertension (1) Atrial fibrillation Atrial fibrillation type: unspecified Qualified Code(s): I48.91 - Unspecified atrial fibrillation (2) Hypertension Hypertension type: essential hypertension Qualified Code(s): I10 - Essential (primary) hypertension
[2020-09-27 02:05] LABS: Adenovirus PCR Not Detected (NotDetected); Bordetella parapertussis PCR Not Detected (NotDetected); Bordetella pertussis PCR Not Detected (NotDetected); Chlamydia pneumoniae PCR Not Detected (NotDetected); Coronavirus 229E PCR Not Detected (NotDetected); Coronavirus CoV-2 (COVID19)PCR Not Detected (NotDetected); Coronavirus HKU1 PCR Not Detected (NotDetected); Coronavirus NL63 PCR Not Detected (NotDetected); Coronavirus OC43PCR Not Detected (NotDetected); Human Metapneumovirus PCR Not Detected (NotDetected); Influenza A PCR Not Detected (NotDetected); Influenza B PCR Not Detected (NotDetected); Mycoplasma pneumoniae PCR Not Detected (NotDetected); Parainfluenza Virus 1 PCR Not Detected (NotDetected); Parainfluenza Virus 2 PCR Not Detected (NotDetected); Parainfluenza Virus 3 PCR Not Detected (NotDetected); Parainfluenza Virus 4 PCR Not Detected (NotDetected); Respiratory Syncytial VirusPCR Not Detected (NotDetected)
[2020-09-27 02:14] LABS: Rhinovirus/Enterovirus PCR DETECTED (NotDetected)
[2020-09-27] MEDS ORDERED: ONDANSETRON INJ 2 MG/ML 2 ML VIAL IV PRN (03:12)
[2020-09-27] MEDS ORDERED: CARBOHYDRATES FOR HYPOGLYCEMIA PO PRN (03:12)
[2020-09-27] MEDS ORDERED: ACETAMINOPHEN 325 MG TAB PO PRN (03:12)
[2020-09-27] MEDS ORDERED: GLUCOSE 40% GEL 15 GM TUBE PO PRN (03:12)
[2020-09-27] MEDS ORDERED: GLUCAGON FOR INJ 1 MG VIAL SQ PRN (03:12)
[2020-09-27] MEDS ORDERED: DEXTROSE 50% 50 ML SYRINGE IV PRN (03:12)
[2020-09-27] MEDS ORDERED: GLUCOSE 10 TABS/TUBE PO PRN (03:12)
[2020-09-27] MEDS ORDERED: PHARMACY GLYCEMIC MGMT CONSULT PRN (05:25)
[2020-09-27] MEDS: LEVOTHYROXINE SODIUM 112 MCG TABLET PO SCH (06:45)
[2020-09-27 07:05] LABS: Estimated Average Glucose 243 mg/dl; Hemoglobin A1C 10.1 % (4.5-5.6)
[2020-09-27] MEDS: INSULIN ASPART 100 UNITS/ML 3 ML PEN SC SCH ×3 (07:09→17:22)
[2020-09-27] MEDS: allopurinoL 300 MG TAB PO SCH (08:08)
[2020-09-27] MEDS: CHOLECALCIFEROL 1,000 UNITS 25 MCG TAB PO SCH ×2 (08:08→22:03)
[2020-09-27] MEDS: hydrALAZINE TAB 50 MG TAB PO SCH ×2 (08:08→22:03)
[2020-09-27] MEDS: SIMVASTATIN 40 MG TAB PO SCH (08:08)
[2020-09-27] MEDS: FENOFIBRATE NANOCRYSTALLIZED 48 MG TABLET PO SCH (08:08)
[2020-09-27] MEDS: lisinopril 5 MG TAB PO SCH (08:09)
[2020-09-27] MEDS: METOPROLOL TARTRATE 50 MG TAB PO SCH ×2 (08:09→22:03)
[2020-09-27] MEDS: INSULIN HUMAN NPH SC SCH ×2 (08:10→17:21)
--- NOTE | 2020-09-27 08:57 | CT Scan Report ---
CT OF THE CHEST WITHOUT IV CONTRAST CLINICAL HISTORY: Hemoptysis. Shortness of breath. COMPARISON STUDY: Chest radiograph May 31, 2019 and September 26, 2020. CT DOSE: 1152.45 mGy.cm TECHNIQUE: Axial images of the chest were obtained without IV contrast. Images were reviewed in the axial, sagittal, and coronal planes. IV contrast was not administered for this examination. Automat ed exposure control was utilized for the study. A dose lowering technique was utilized adhering to t he principles of ALARA. FINDINGS: A left subclavian biventricular pacer/AICD is in place. Multiple mildly enlarged mediastin al and bilateral hilar lymph nodes. Index prevascular lymph node measures 1.2 cm in short axis stent. Index subcarinal lymph node measures 1.3 cm. Moderate cardiomegaly is noted. There is no pericardial effusion. There is no pneumothorax. Small bilateral pleural effusions are noted. Interlobular septal thickening is noted. There are additional moderate groundglass opacities throughout the lungs. Centr al airways are patent. Visualized portions of the upper abdomen demonstrate gallstones within the gal lbladder. A 2 cm low-attenuation left adrenal nodule is benign. IMPRESSION: 1. Interlobular septal thickening consistent with pulmonary edema. Additional airspace opacities like ly reflect alveolar edema however a superimposed infectious process could appear similar. 2. Small bilateral pleural effusions. 3. Mildly enlarged mediastinal and bilateral hilar lymph nodes. These may be reactive however a follo w-up chest CT in 3 months is recommended. ACT 112: Negative or not required by law. Electronically signed by: Nimesh Freire M.D. 09/27/2020 8:56 AM
[2020-09-27] MEDS ORDERED: FUROSEMIDE 40 MG in SYRINGE 0 ML IV SCH (09:00)
[2020-09-27] MEDS ORDERED: AZITHROMYCIN 250 MG in DEXTROSE 5% 250 ML IV SCH (09:00)
[2020-09-27 11:10] LABS: Basophils # (auto) 0.03 K/uL (0-0.2); Basophils % (auto) 0.3 %; Eosinophils # (auto) 0.54 K/uL (0-0.5); Eosinophils % (auto) 5.5 %; Hematocrit (blood only) 31.9 % (42-52); Hemoglobin 9.8 g/dL (14.0-18.0); Immature Granulocytes # (auto) 0.02 K/uL (0.00-0.02); Immature Granulocytes % (auto) 0.2 %; Lymphocytes # (auto) 1.18 K/uL (1.2-3.4); Mean Corpuscular Hemoglobin 28.2 pg (25-34); Mean Corpuscular Hgb Conc 30.7 g/dL (32-36); Mean Corpuscular Volume 91.7 fL (80-100); Mean Platelet Volume 9.7 fL (7.4-10.4); Monocytes # (auto) 0.71 K/uL (0.11-0.59); Monocytes % (auto) 7.2 %; Neutrophils # (auto) 7.39 K/uL (1.4-6.5); Neutrophils % (auto) 74.8 %; Platelet Count 319 K/uL (130-400); RDW Coefficient of Variation 17.1 % (11.5-14.5); RDW Standard Deviation 54.5 fL (36.4-46.3); Red Blood Count 3.48 M/uL (4.7-6.1); White Blood Count 9.87 K/uL (4.8-10.8)
[2020-09-27 11:27] LABS: INR 4.3 (0.9-1.1); Prothrombin Time 41.7 Seconds (9.0-12.0)
--- NOTE | 2020-09-27 11:29 | Pharmacy Report ---
Pharmacy Glycemic Short Note 2 - Date of Service September 27, 2020 - Glycemic Short BSG Results (Last 24 hours): 09/26/20 09/27/20 09/27/20 21:19 01:09 03:20 Glucose 53 L* POC Glucose 199 H 177 H 09/27/20 06:47 Glucose POC Glucose 131 H OUTPATIENT ANTIDIABETIC REGIMEN: * NovoLog 70/30 premixed insulin 100 units in AM with breakfast + 90 units SQ in PM dinner * A1c = 10.1% on 09/27/2020 ASSESSMENT: * 74 yo T2DM male admitted with PNA * Poor outpatient diabetes control per A1c. Unsure if this is secondary to compliance issues vs underdosing insulin issue * Outpatient regimen is premixed basal/prandial insulin of NovoLog 70/30 mix insulin. * Pre-mixed insulin is difficult to titrate since it is already in a fixed distribution of basal:prandial insulin. Continuing pre-mixed insulin for admission typically lead to hypoglycemia d/t changing PO status but rapid acting insulin is unable to be held. * Home regimen will be held for admission per pharmacy consult. Will utilize recommended regimen of SQ basal bolus insulin regimen with NPH + NovoLog (CF+CR) * Pt NPO - typically patients require 20-50% dose reduction in insulin dosing while NPO. Since patient missed insulin dose last evening without resulting severe hyperglycemia this AM will dosing more aggressively - decrease by ~60% and titrate based on BSG trends. PLAN FOR INPATIENT GLYCEMIC CONTROL: * Hold outpatient pre-mixed insulin * Basal insulin * NPH 40 units SQ BIDM * Bolus insulin * NovoLog per scale ACHS or Q6hrs while NPO * Goal Range: Low 120 mg/dL - High 160 mg/dL * Correction Factor: 15 mg/dL/unit * Nutritional / Prandial insulin per carb ratio of 1 unit per 5 grams CHO consumed
[2020-09-27 11:33] LABS: BUN Creatinine Ratio 14.6 (10-20); Calcium 9.3 mg/dl (8.5-10.1); Creatinine Clr Calc Pharmacy 27.7 ml/min; Est GFR (African American) 21.1; Est GFR (Non-African American) 18.2; Potassium 3.7 mmol/L (3.5-5.1)
--- NOTE | 2020-09-27 12:21 | Pulmonary Consultation ---
Date of Consultation September 27, 2020 Assessment & Plan (1) Cough with hemoptysis: This is a 74 yo male that presented with cough and osman hemoptysis. He also appears to be in acute exacerbation of CHF with an elevated p-BNP as well as imaging that reflects pulmonary edema consistent with CHF. Patient presents with elevated INR. Recommendations: 1. Hemoptysis: Differentials include elevated INR, pulmonary edema, alveolar hemorrhage. Hold Coumadin and let the INR drift down. Check repeat CXR in the morning. If patient continues with hemoptysis and INR drops below 2.0, patient may require bronchoscopy with serial aliquants to rule out alveolar hemmorhage. For now will watch and wait. If repeat CXR is improved tomorrow, then this would suggest pulmonary edema and not hemorrhage. Check daily INR and follow CBC. 2. CHF: Patient follows with Dr Dante Simmons at [facility]. Most recent echo with preserved LVEF 55-59%. Moderate aortic stenosis. Left ventricular wall thickness is moderately increased suggesting diastolic dysfunction. Continue diuresis and monitor strict I&Os. 3. Bilateral pleural effusions: These are most likely secondary to CHF as they are bilateral. They are small effusions. At this point thoracentesis is not advised. Continue to diurese and we will follow on CXRs. Thank you for including us in the care of this patient. We will follow along with you. Please refer to Dr. Moreno's addendum for further recommendations. (2) Elevated INR: (3) Bilateral interstitial pneumonia: (4) Nonischemic cardiomyopathy: (5) Atrial fibrillation: Atrial fibrillation type: unspecified Qualified Code(s): I48.91 - Unspecified atrial fibrillation (6) LBBB (left bundle branch block): (7) CHF (congestive heart failure): (8) CAD (coronary artery disease): Supervising Physician Co-Signing Physician Notes I saw and evaluated the patient with Lee cardenas, and agree with findings and plan as documented in the note. Patient seen and examined at bedside. No acute distress. He states he is feeling better after coming to the hospital. He has been having hemoptysis. He was found to have INR of 4.2. Patient has history of diastolic CHF with CKD. Bilateral lower extremity edema. Patient has bilateral groundglass opacities with interlobular thickening and bilateral pleural effusion. This is most likely pulmonary edema-like picture and coughing leading to hemoptysis. Continue with diuresis. Antitussive medication to suppress the cough. Diffuse alveolar hemorrhage can present the same way as well but first thing would be to reverse the anticoagulation. No acute indication for bronchoscopy. Repeat chest x-ray in the morning. Continue with diuresis. Keep the patient negative balance. BiPAP nightly and as needed shortness of breath. History of Present Illness Attending Physician: Mau Galaviz History of Present Illness Attending: Dr. Moreno This is a 74 yo male with a past medical history including CAD, non-ischemic cardiomyopathy, atrial fibrillation on chronic anticoagulation with warfarin, implanted automatic defibrillator, LBBB, CKD, CHF, T2IDDM, HTN, hypothyroidism, obesity with a BMI 34.9Kg/m2. The patient presents with osman hemoptysis, cough, and increased SOB over the past 2-3 days. He is on Coumadin for atrial fibrillation and presents with an INR of 4.2. He denies fever or chills. No loss of smell or taste. No contact with COVID-19 positive patients. No other sick contacts. He has no chest pain or tightness. He denies any other active bleeding. He reports that this has been occurring for the past 2-3 weeks and seems to be improving of the last day or so. He reports that clots do not seem to be mixed with sputum and are about the size of a dime or smaller. He has been able to easily expectorate his sputum. He has had no nausea or vomiting and further denies diarrhea. He has no other acute pulmonary complaints. Allergies Allergy/AdvReac Type Severity Reaction Status Date / Time No Known Allergies Allergy Verified 09/27/20 00:49 Home Medications Home Medications Medication Instructions Recorded Confirmed Type allopurinol 300 mg PO QAM 04/22/19 09/27/20 History fenofibrate nanocrystallized 48 mg PO QAM 04/22/19 09/27/20 History hydralazine 50 mg PO BID 04/22/19 09/27/20 History insulin asp prt-insulin aspart 90 unit SUBCUT QPM 04/22/19 09/27/20 History [Novolog Mix 70-30 U-100 Insuln] insulin asp prt-insulin aspart 100 unit SUBCUT QAM 04/22/19 09/27/20 History [Novolog Mix 70-30 U-100 Insuln] levothyroxine 112 mcg PO QAM 04/22/19 09/27/20 History metoprolol tartrate 50 mg PO BID 04/22/19 09/27/20 History simvastatin 40 mg PO QAM 04/22/19 09/27/20 History cholecalciferol (vitamin D3) 1,000 unit PO BID 05/31/19 09/27/20 History [Vitamin D3] omega 5-qvr-frv-fish oil [Fish Oil] 1 cap PO QAM 05/31/19 09/27/20 History warfarin 5 mg PO 3XWK 05/31/19 09/27/20 History furosemide 40 mg PO QAM 09/27/20 09/27/20 History lisinopril 5 mg PO QAM 09/27/20 09/27/20 History warfarin 10 mg PO 4XWK 09/27/20 09/27/20 History Patient History Medical History Atrial fibrillation CAD (coronary artery disease) Cardiac defibrillator in place CHF (congestive heart failure) CKD (chronic kidney disease) stage 4, GFR 15-29 ml/min Diabetes Heart disease Hypertension ICD (implantable cardioverter-defibrillator) battery depletion Pt with BiV ICD at [facility]; for a generator change; discussed the procedure and potential risks with the patient which include but not limited to , arrhythmia, stroke, heart attack, bleeding and infection. consent obtained Kidney disease LBBB (left bundle branch block) Nonischemic cardiomyopathy Postoperative hematoma PVD (peripheral vascular disease) T2DM (type 2 diabetes mellitus) Surgical History Amputated below knee Prosthetic in place Biventricular ICD (implantable cardioverter-defibrillator) in place initially placed in 2007 secondary to ischemic [employer] and converted to a BiV in 02/2013 with recent generator exchange 04/19/19 History of left heart catheterization Family History Father Stroke Mother Diabetes Social History Smoking Status: Former smoker Tobacco Type: Cigarettes Cigarettes Per Day: 1984; Second Hand Exposure: No; Hx Alcohol Use: No Hx Substance Use: No Preferred Language: Nigerian Communication Ability: Effective Preschool Associate Teacher Required: No Beliefs That Will Affect Care: None Current Living Situation: Alone Current Living Situation Comment: lives in house alone Feels Safe at Home: Yes Assistive Devices: Prosthesis Review of Systems Review of Systems: All systems reviewed & are unremarkable except as noted in HPI & below Results & Data Results & Data ([facility]) Vital Signs (Past 12 Hours) Vital Signs Temp Pulse Pulse Resp BP BP Pulse Ox 09/27/20 07:13 83 09/27/20 07:08 36.6 C 65 18 156/88 H 94 09/27/20 04:05 36.8 C 94 H 20 168/84 H 95 09/27/20 02:42 79 20 136/72 96 09/27/20 02:00 80 24 97 09/27/20 01:31 79 25 H 93 09/27/20 01:30 80 26 H 160/91 H 95 09/27/20 01:01 82 20 91 09/27/20 01:00 80 26 H 135/68 93 09/27/20 00:31 79 24 142/74 H 96 09/27/20 00:30 82 20 97 Laboratory Results 09/27/20 10:52 09/27/20 10:52 Laboratory Tests 09/26/20 09/27/20 21:19 10:52 INR 4.2 H 4.[address] OF THE CHEST WITHOUT IV CONTRAST CLINICAL HISTORY: Hemoptysis. Shortness of breath. COMPARISON STUDY: Chest radiograph May 31, 2019 and September 26, 2020. CT DOSE: 1152.45 mGy.cm TECHNIQUE: Axial images of the chest were obtained without IV contrast. Images were reviewed in the axial, sagittal, and coronal planes. IV contrast was not administered for this examination. Automated exposure control was utilized for the study. A dose lowering technique was utilized adhering to the principles of ALARA. FINDINGS: A left subclavian biventricular pacer/AICD is in place. Multiple mildly enlarged mediastinal and bilateral hilar lymph nodes. Index prevascular lymph node measures 1.2 cm in short axis stent. Index subcarinal lymph node measures 1.3 cm. Moderate cardiomegaly is noted. There is no pericardial effusion. There is no pneumothorax. Small bilateral pleural effusions are noted. Interlobular septal thickening is noted. There are additional moderate groundglass opacities throughout the lungs. Central airways are patent. Visualized portions of the upper abdomen demonstrate gallstones within the gallbladder. A 2 cm low-attenuation left adrenal nodule is benign. IMPRESSION: 1. Interlobular septal thickening consistent with pulmonary edema. Additional airspace opacities likely reflect alveolar edema however a superimposed infectious process could appear similar. 2. Small bilateral pleural effusions. 3. Mildly enlarged mediastinal and bilateral hilar lymph nodes. These may be reactive however a follow-up chest CT in 3 months is recommended. Electronically signed by: Nimesh Freire M.D. 09/27/2020 8:56 AM Echocardiogram at [facility] 07/2020 IMPRESSION: The examination is adequate to evaluate the referral indication. The left ventricular cavity size is normal. The LV wall thickness is moderately increased (concentric). The left ventricular wall motion is normal. The qualitative LV ejection fraction is 55-59% (normal). The aortic valve is moderately calcified. Moderate aortic valve stenosis is present. The aortic root and proximal ascending aorta are normal sized. Compared to last available study changes are noted as follows: Aortic stenosis has progressed to a mild degree and is now moderate severity PG Care Time/CCT Total # of Minutes Spent Total Time Spent with Patient: Total time spent is greater than 50% in coordination of care (as documented) at patient's floor/unit and/or counseling patient: 50 minutes Coding Level of Care Code 79546 Inpt Consult Level 4 Diagnoses Cough with hemoptysis R04.2 Elevated INR R79.1 Bilateral interstitial pneumonia J84.9 Nonischemic cardiomyopathy I42.8 Atrial fibrillation I48.91 Atrial fibrillation type: unspecified LBBB (left bundle branch block) I44.7 CHF (congestive heart failure) I50.9 CAD (coronary artery disease) I25.10 Time Spent (min) 50
[2020-09-27] MEDS ORDERED: BUMETANIDE 2 MG in SYRINGE 0 ML IV ONE (15:08)
--- NOTE | 2020-09-27 16:40 | Electrocardiogram Report ---
Test Reason : Blood Pressure : / mmHG Vent. Rate : 075 BPM Atrial Rate : 075 BPM P-R Int : 138 ms QRS Dur : 150 ms QT Int : 502 ms P-R-T Axes : 091 -61 117 degrees QTc Int : 560 ms Atrial-sensed ventricular-paced rhythm Abnormal ECG When compared with ECG of 31-MAY-2019 18:35, Vent. rate has increased BY 15 BPM Confirmed by Devon De La Cruz ([id number]) on 09/27/2020 4:40:20 PM Referred By: REFERRED SELF Confirmed By:Edil De La Cruz
[2020-09-27] MEDS ORDERED: IPRATROPIUM BROMIDE/ALBUTEROL respimat INH INH SCH (17:00)
[2020-09-27] MEDS: DOXYCYCLINE HYCLATE 100 MG in DEXTROSE 5% 100 ML IV SCH (17:22)
[2020-09-27] MEDS: ALBUTEROL HFA 8 GM INHALER INH SCH (19:04)
[2020-09-27] MEDS: IPRATROPIUM BROMIDE HFA INHALER INH SCH (19:04)
--- NOTE | 2020-09-27 19:44 | Hospitalist Progress Note ---
Date of Service September 27, 2020 Assessment & Plan (1) Acute on chronic systolic heart failure: deserves repeat echo. previous echo with EF 45-50%. advanced CKD could also be contributing to volume overload/pulm edema. will obtain repeat echo. cont diuresis. change IV lasix to IV bumex moving forward. cont BB. cont SANDRA cautiously in light of advanced CKD but Cr improving as of this am. (2) Acute respiratory failure with hypoxia: 2nd to acute/chronic systolic CHF, probable bronchitis vs pneumonia 2nd to rhinovirus. cont care for both. add bronchodilators. (3) Warfarin-induced coagulopathy: INR >4 today. hold warfarin; repeat INR am. (4) Cough with hemoptysis: Likely that coumadin use and supratherapeutic INR is contributing to hemoptysis. Pulmonary edema and rhinovirus infection also likely contributing to hemoptysis. Hemoptysis is already improving per patient. Patient is coughing his sputum into collection cup - I witnessed this personally - and it is SMALL VOLUME. H/H acceptable. (5) Bilateral interstitial pneumonia: Likely viral pneumonia 2nd rhinovirus. stop IV antibiotics. follow blood cultures. (6) Elevated troponin: Likely myocardial demand ischemia in setting of decompensated CHF, viral pneumonia/viral infection (rhinovirus), etc. (7) Chronic kidney insufficiency: Baseline Cr about 2.5 to 3 and baseline CrCl 30s. Mild [place] - this is improving. BMP in am. (8) Nonischemic cardiomyopathy: Patient with history of NICM s/p AICD placement in 2007 with conversion to Bi-ventricular AICD in 2012 Cont IV diuresis. Continue Metoprolol, Lisinopril, Hydralazine. Monitor I/Os, weights; fluid restrict as well. REPEAT echo ordered. (9) Biventricular ICD (implantable cardioverter-defibrillator) in place: noted pacing on monitor (10) Atrial fibrillation: cont metoprolol paced on coumadin chronically; held due to supratherapeutic INR (11) Hypertension: Cont home meds. BPs acceptable. (12) Hypothyroidism: TSH 4.5 on 08/23/20. Would leave synthroid as is. (13) Acute kidney injury: Improving. likely due to volume overloaded state. Cont diuresis. BMP am. will need PT/OT. sister updated by phone this evening. care d/w pulmonary. Admission and Anticipated Discharge Date Admission Date: September 27, 2020 Subjective patient reports decrease in hemoptysis. he had 1 episode earlier - placed specimen in a cup - small volume noted by this junior copywriter (streaky, with sputum). he continues coughing and wheezing with mild [place]. some orthopnea. has had nasal congestion for several days. tele - pacing. Review of Systems Constitutional: no fever, no chills and no anorexia Respiratory: + cough, + dyspnea, + dyspnea on exertion, + hemoptysis and + wheezing Cardiovascular: + orthopnea and + edema Gastrointestinal: no abdominal pain, no nausea and no vomiting Physical Exam Constitutional: well developed and well nourished; no acute distress and no altered mental status ENMT: external ear and nose normal, oropharynx normal Respiratory: no respiratory distress Auscultation: + crackles (bases) and + wheezes Cardiovascular: Rate/Rhythm: regular rate and regular rhythm Heart Sounds: normal S1 and normal S2 Vessels: + JVD, posterior tibial pulses present and dorsalis pedis pulses present Extremities: + edema (<1+ b/l ) Gastrointestinal (Abdomen): normal bowel sounds, soft, nontender, no hepatosplenomegaly Psychiatric: A+Ox3, euthymic affect Results & Data Results & Data ([facility]) Vital Signs (Past 12 Hours) Vital Signs Temp Pulse Pulse Resp BP Pulse Ox 09/27/20 19:33 36.5 C 85 18 164/74 H 93 09/27/20 19:11 78 09/27/20 19:07 75 16 92 09/27/20 15:25 36.6 C 73 18 136/85 94 Laboratory Results Laboratory Results - last 24 hr 09/26/20 09/26/20 09/26/20 21:19 21:19 21:19 WBC 12.90 H RBC 3.68 L Hgb 10.5 L Hct 33.7 L MCV 91.6 MCH 28.5 MCHC 31.2 L RDW Std Deviation 53.2 H RDW Coeff of Nicolasa 16.8 H Plt Count 368 MPV 10.3 Immature Gran % (Auto) 0.5 Neut % (Auto) 73.2 Lymph % (Auto) 14.4 [place] % (Auto) 7.1 Eos % (Auto) 4.5 Baso % (Auto) 0.3 Neut # (Auto) 9.44 H Lymph # (Auto) 1.86 [place] # (Auto) 0.92 H Eos # (Auto) 0.58 H Baso # (Auto) 0.04 Immature Gran # (Auto) 0.06 H PT 40.7 H INR 4.2 H APTT 46.3 H* PTT Ratio 1.7 Sodium 142 Potassium 3.5 Chloride 106 Carbon Dioxide 30 Anion Gap 6.0 BUN 52 H Creatinine 3.50 H Est Cr Clr Drug Dosing 25.1 Est GFR ( Amer) 18.8 Est GFR (Non-Af Amer) 16.2 BUN/Creatinine Ratio 14.7 Glucose 53 L* POC Glucose Estimat Average Glucose Hemoglobin A1c Calcium 9.8 Magnesium Total Bilirubin 0.6 AST 24 ALT 23 Alkaline Phosphatase 55 Troponin I 1.030 H* NT-Pro-B Natriuret Pep 9251 H Total Protein 8.1 Albumin 3.3 L Globulin 4.8 H Albumin/Globulin Ratio 0.7 L Adenovirus (PCR) B. pertussis DNA (PCR) B.parapertussis DNA PCR C. pneumoniae DNA (PCR) Coronavirus OC43 (PCR) Coronavirus HKU1 (PCR) Coronavirus 229E (PCR) COVID-19 PCR Coronavirus NL63 (PCR) Human Metapneumovir PCR Influenza Type A (PCR) Influenza Type B (PCR) M. pneumoniae (PCR) Parainfluenza 1 (PCR) Parainfluenza 2 (PCR) Parainfluenza 3 (PCR) Parainfluenza 4 (PCR) RSV (PCR) Entero/Rhino (PCR) 09/26/20 09/27/20 09/27/20 21:19 00:30 01:09 WBC RBC Hgb Hct MCV MCH MCHC RDW Std Deviation RDW Coeff of Nicolasa Plt Count MPV Immature Gran % (Auto) Neut % (Auto) Lymph % (Auto) [place] % (Auto) Eos % (Auto) Baso % (Auto) Neut # (Auto) Lymph # (Auto) [place] # (Auto) Eos # (Auto) Baso # (Auto) Immature Gran # (Auto) PT INR APTT PTT Ratio Sodium Potassium Chloride Carbon Dioxide Anion Gap BUN Creatinine Est Cr Clr Drug Dosing Est GFR ( Amer) Est GFR (Non-Af Amer) BUN/Creatinine Ratio Glucose POC Glucose 199 H Estimat Average Glucose Hemoglobin A1c Calcium Magnesium 2.5 H Total Bilirubin AST ALT Alkaline Phosphatase Troponin I NT-Pro-B Natriuret Pep Total Protein Albumin Globulin Albumin/Globulin Ratio Adenovirus (PCR) Not Detected B. pertussis DNA (PCR) Not Detected B.parapertussis DNA PCR Not Detected C. pneumoniae DNA (PCR) Not Detected Coronavirus OC43 (PCR) Not Detected Coronavirus HKU1 (PCR) Not Detected Coronavirus 229E (PCR) Not Detected COVID-19 PCR Not Detected Coronavirus NL63 (PCR) Not Detected Human Metapneumovir PCR Not Detected Influenza Type A (PCR) Not Detected Influenza Type B (PCR) Not Detected M. pneumoniae (PCR) Not Detected Parainfluenza 1 (PCR) Not Detected Parainfluenza 2 (PCR) Not Detected Parainfluenza 3 (PCR) Not Detected Parainfluenza 4 (PCR) Not Detected RSV (PCR) Not Detected Entero/Rhino (PCR) DETECTED A* 09/27/20 09/27/20 09/27/20 03:20 06:32 06:32 WBC RBC Hgb Hct MCV MCH MCHC RDW Std Deviation RDW Coeff of Nicolasa Plt Count MPV Immature Gran % (Auto) Neut % (Auto) Lymph % (Auto) [place] % (Auto) Eos % (Auto) Baso % (Auto) Neut # (Auto) Lymph # (Auto) [place] # (Auto) Eos # (Auto) Baso # (Auto) Immature Gran # (Auto) PT INR APTT PTT Ratio Sodium Potassium Chloride Carbon Dioxide Anion Gap BUN Creatinine Est Cr Clr Drug Dosing Est GFR ( Amer) Est GFR (Non-Af Amer) BUN/Creatinine Ratio Glucose POC Glucose 177 H Estimat Average Glucose 243 Hemoglobin A1c 10.1 H Calcium Magnesium Total Bilirubin AST ALT Alkaline Phosphatase Troponin I 0.773 H* NT-Pro-B Natriuret Pep Total Protein Albumin Globulin Albumin/Globulin Ratio Adenovirus (PCR) B. pertussis DNA (PCR) B.parapertussis DNA PCR C. pneumoniae DNA (PCR) Coronavirus OC43 (PCR) Coronavirus HKU1 (PCR) Coronavirus 229E (PCR) COVID-19 PCR Coronavirus NL63 (PCR) Human Metapneumovir PCR Influenza Type A (PCR) Influenza Type B (PCR) M. pneumoniae (PCR) Parainfluenza 1 (PCR) Parainfluenza 2 (PCR) Parainfluenza 3 (PCR) Parainfluenza 4 (PCR) RSV (PCR) Entero/Rhino (PCR) 09/27/20 09/27/20 09/27/20 06:47 10:52 10:52 WBC 9.87 RBC 3.48 L Hgb 9.8 L Hct 31.9 L MCV 91.7 MCH 28.2 MCHC 30.7 L RDW Std Deviation 54.5 H RDW Coeff of Nicolasa 17.1 H Plt Count 319 MPV 9.7 Immature Gran % (Auto) 0.2 Neut % (Auto) 74.8 Lymph % (Auto) 12.0 [place] % (Auto) 7.2 Eos % (Auto) 5.5 Baso % (Auto) 0.3 Neut # (Auto) 7.39 H Lymph # (Auto) 1.18 L [place] # (Auto) 0.71 H Eos # (Auto) 0.54 H Baso # (Auto) 0.03 Immature Gran # (Auto) 0.02 PT INR APTT PTT Ratio Sodium 141 Potassium 3.7 Chloride 106 Carbon Dioxide 30 Anion Gap 5.0 BUN 46 H Creatinine 3.18 H D Est Cr Clr Drug Dosing 27.7 Est GFR ( Amer) 21.1 Est GFR (Non-Af Amer) 18.2 BUN/Creatinine Ratio 14.6 Glucose 113 H POC Glucose 131 H Estimat Average Glucose Hemoglobin A1c Calcium 9.3 Magnesium Total Bilirubin AST ALT Alkaline Phosphatase Troponin I NT-Pro-B Natriuret Pep Total Protein Albumin Globulin Albumin/Globulin Ratio Adenovirus (PCR) B. pertussis DNA (PCR) B.parapertussis DNA PCR C. pneumoniae DNA (PCR) Coronavirus OC43 (PCR) Coronavirus HKU1 (PCR) Coronavirus 229E (PCR) COVID-19 PCR Coronavirus NL63 (PCR) Human Metapneumovir PCR Influenza Type A (PCR) Influenza Type B (PCR) M. pneumoniae (PCR) Parainfluenza 1 (PCR) Parainfluenza 2 (PCR) Parainfluenza 3 (PCR) Parainfluenza 4 (PCR) RSV (PCR) Entero/Rhino (PCR) 09/27/20 09/27/20 09/27/20 10:52 12:31 16:59 WBC RBC Hgb Hct MCV MCH MCHC RDW Std Deviation RDW Coeff of Nicolasa Plt Count MPV Immature Gran % (Auto) Neut % (Auto) Lymph % (Auto) [place] % (Auto) Eos % (Auto) Baso % (Auto) Neut # (Auto) Lymph # (Auto) [place] # (Auto) Eos # (Auto) Baso # (Auto) Immature Gran # (Auto) PT 41.7 H INR 4.3 H APTT PTT Ratio Sodium Potassium Chloride Carbon Dioxide Anion Gap BUN Creatinine Est Cr Clr Drug Dosing Est GFR ( Amer) Est GFR (Non-Af Amer) BUN/Creatinine Ratio Glucose POC Glucose 90 Estimat Average Glucose Hemoglobin A1c Calcium Magnesium Total Bilirubin AST ALT Alkaline Phosphatase Troponin I 0.649 H* NT-Pro-B Natriuret Pep Total Protein Albumin Globulin Albumin/Globulin Ratio Adenovirus (PCR) B. pertussis DNA (PCR) B.parapertussis DNA PCR C. pneumoniae DNA (PCR) Coronavirus OC43 (PCR) Coronavirus HKU1 (PCR) Coronavirus 229E (PCR) COVID-19 PCR Coronavirus NL63 (PCR) Human Metapneumovir PCR Influenza Type A (PCR) Influenza Type B (PCR) M. pneumoniae (PCR) Parainfluenza 1 (PCR) Parainfluenza 2 (PCR) Parainfluenza 3 (PCR) Parainfluenza 4 (PCR) RSV (PCR) Entero/Rhino (PCR) PG Care Time/CCT Total # of Minutes Spent Total Time Spent with Patient: Total time spent is greater than 50% in coordination of care (as documented) at patient's floor/unit and/or counseling patient: Coding Level of Care Code 17144 Subseq Hosp Care Lvl 3 Diagnoses Acute on chronic systolic heart failure I50.23 Acute respiratory failure with hypoxia J96.01 Warfarin-induced coagulopathy D68.32; T45.515A Cough with hemoptysis R04.2 Bilateral interstitial pneumonia J84.9 Elevated troponin R77.8 Chronic kidney insufficiency N18.32 Chronic kidney disease stage: stage 3 (moderate) Chronic kidney disease stage 3 subtype: stage 3b (GFR 30-44) Nonischemic cardiomyopathy I42.8 Biventricular ICD (implantable cardioverter-defibrillator) in place Z95.810 Atrial fibrillation I48.91 Atrial fibrillation type: unspecified Hypertension I10 Hypertension type: essential hypertension Hypothyroidism E03.9 Hypothyroidism type: acquired Acute kidney injury N17.9 (1) Atrial fibrillation Atrial fibrillation type: unspecified Qualified Code(s): I48.91 - Unspecified atrial fibrillation (2) Hypothyroidism Hypothyroidism type: acquired Qualified Code(s): E03.9 - Hypothyroidism, unspecified (3) Chronic kidney insufficiency Chronic kidney disease stage: stage 3 (moderate) Chronic kidney disease stage 3 subtype: stage 3b (GFR 30-44) Qualified Code(s): N18.32 - Chronic kidney disease, stage 3b (4) Hypertension Hypertension type: essential hypertension Qualified Code(s): I10 - Essential (primary) hypertension
[2020-09-27] MEDS ORDERED: cefTRIAXone SODIUM 2,000 MG in DEXTROSE 5% 50 ML IV SCH (20:00)
[2020-09-27] MEDS ORDERED: Nursing to Pharmacy Communication SCH (23:30)
[2020-09-28] MEDS: DOXYCYCLINE HYCLATE 100 MG in DEXTROSE 5% 100 ML IV SCH (05:19)
[2020-09-28] MEDS: LEVOTHYROXINE SODIUM 112 MCG TABLET PO SCH (05:23)
[2020-09-28] MEDS: ALBUTEROL HFA 8 GM INHALER INH SCH ×4 (07:21→19:23)
[2020-09-28] MEDS: IPRATROPIUM BROMIDE HFA INHALER INH SCH ×4 (07:21→19:23)
[2020-09-28] MEDS ORDERED: FUROSEMIDE 60 MG in SYRINGE 0 ML IV ONE ×2 (08:00→16:15)
[2020-09-28 08:06] LABS: Basophils # (auto) 0.03 K/uL (0-0.2); Basophils % (auto) 0.3 %; Eosinophils # (auto) 0.41 K/uL (0-0.5); Eosinophils % (auto) 3.6 %; Hematocrit (blood only) 32.4 % (42-52); Immature Granulocytes # (auto) 0.03 K/uL (0.00-0.02); Immature Granulocytes % (auto) 0.3 %; Lymphocytes # (auto) 1.21 K/uL (1.2-3.4); Lymphocytes % (auto) 10.6 %; Mean Corpuscular Hemoglobin 28.2 pg (25-34); Mean Corpuscular Hgb Conc 30.9 g/dL (32-36); Mean Corpuscular Volume 91.3 fL (80-100); Mean Platelet Volume 10.1 fL (7.4-10.4); Monocytes # (auto) 0.75 K/uL (0.11-0.59); Monocytes % (auto) 6.6 %; Neutrophils # (auto) 8.95 K/uL (1.4-6.5); Neutrophils % (auto) 78.6 %; Platelet Count 354 K/uL (130-400); RDW Standard Deviation 55.1 fL (36.4-46.3); Red Blood Count 3.55 M/uL (4.7-6.1); White Blood Count 11.38 K/uL (4.8-10.8)
[2020-09-28 08:17] LABS: INR 2.3 (0.9-1.1); Prothrombin Time 23.4 Seconds (9.0-12.0)
[2020-09-28] MEDS: allopurinoL 300 MG TAB PO SCH (08:23)
[2020-09-28] MEDS: INSULIN ASPART 100 UNITS/ML 3 ML PEN SC SCH ×4 (08:23→21:32)
[2020-09-28] MEDS: SIMVASTATIN 40 MG TAB PO SCH (08:24)
[2020-09-28] MEDS: INSULIN HUMAN NPH SC SCH ×2 (08:24→17:56)
[2020-09-28] MEDS: CHOLECALCIFEROL 1,000 UNITS 25 MCG TAB PO SCH ×2 (08:24→22:22)
[2020-09-28] MEDS: METOPROLOL TARTRATE 50 MG TAB PO SCH ×2 (08:24→22:21)
[2020-09-28] MEDS: hydrALAZINE TAB 50 MG TAB PO SCH ×2 (08:24→22:22)
[2020-09-28] MEDS: FENOFIBRATE NANOCRYSTALLIZED 48 MG TABLET PO SCH (08:25)
[2020-09-28] MEDS: lisinopril 5 MG TAB PO SCH (08:25)
[2020-09-28 08:44] LABS: BUN Creatinine Ratio 14.2 (10-20); Calcium 9.6 mg/dl (8.5-10.1); Creatinine Clr Calc Pharmacy 26.3 ml/min; Est GFR (African American) 20.2; Est GFR (Non-African American) 17.4
[2020-09-28] MEDS ORDERED: PERFLUTREN LIPID MICROSPHERE (DEFINITY) IV ONE (09:27)
--- NOTE | 2020-09-28 09:52 | Pharmacy Report ---
Pharmacy Glycemic Short Note 2 - Date of Service September 28, 2020 - Glycemic Short BSG Results (Last 24 hours): 09/27/20 09/27/20 09/28/20 10:52 16:59 07:33 Glucose 113 H 83 POC Glucose 90 09/28/20 07:41 Glucose POC Glucose 89 OUTPATIENT ANTIDIABETIC REGIMEN: * NovoLog 70/30 premixed insulin 100 units in AM with breakfast + 90 units SQ in PM dinner * A1c = 10.1% on 09/27/2020 ASSESSMENT: 09/28: * Pt has received 86 units of insulin over the past 24hrs * 80 units of basal insulin with Lantus * 6 units of bolus insulin with NovoLog * BSGs ranging 89-177 mg/dl * Diet advanced from NPO to DMT2 however pt with very little PO intake. * BSGs all below goal range for inpatient targets despite decreasing outpatient dosing by 60%. Will decrease basal insulin by another 25% to prevent low BSG. * No change to CF/CR since this has not been given over the past 24hrs. Unable to assess parameters 09/27: * 74 yo T2DM male admitted with PNA * Poor outpatient diabetes control per A1c. Unsure if this is secondary to compliance issues vs underdosing insulin issue * Outpatient regimen is premixed basal/prandial insulin of NovoLog 70/30 mix insulin. * Pre-mixed insulin is difficult to titrate since it is already in a fixed distribution of basal:prandial insulin. Continuing pre-mixed insulin for admission typically lead to hypoglycemia d/t changing PO status but rapid acting insulin is unable to be held. * Home regimen will be held for admission per pharmacy consult. Will utilize recommended regimen of SQ basal bolus insulin regimen with NPH + NovoLog (CF+CR) * Pt NPO - typically patients require 20-50% dose reduction in insulin dosing while NPO. Since patient missed insulin dose last evening without resulting severe hyperglycemia this AM will dosing more aggressively - decrease by ~60% and titrate based on BSG trends. PLAN FOR INPATIENT GLYCEMIC CONTROL: * Hold outpatient pre-mixed insulin * Basal insulin: * DECREASE NPH 40 units SQ BIDM to NPH 30 units SQ BIDM * Bolus insulin: no change * NovoLog per scale ACHS or Q6hrs while NPO * Goal Range: Low 120 mg/dL - High 160 mg/dL * Correction Factor: 15 mg/dL/unit * Nutritional / Prandial insulin per carb ratio of 1 unit per 5 grams CHO consumed
--- NOTE | 2020-09-28 09:57 | XRay Report ---
XR chest 1V portable HISTORY: Shortness of breath. Follow-up. COMPARISON: Chest 09/26/2020. FINDINGS: The heart remains mildly enlarged. Diffuse interstitial thickening has slightly improved. N o pneumothorax. No pleural effusions. Left-sided pacemaker/defibrillator is again noted. No new focal lung consolidations to suggest pneumonia. IMPRESSION: Improvement in the mild interstitial thickening suggestive of resolving congestive change. ACT 112: Negative or not required by law. Electronically signed by: Boubacar Bryant M.D. 09/28/2020 9:56 AM
--- NOTE | 2020-09-28 20:07 | Pulmonology Progress Note ---
Date of Service September 28, 2020 Assessment & Plan (1) Cough with hemoptysis: This is a 74 yo male that presented with cough and osman hemoptysis. He also appears to be in acute exacerbation of CHF with an elevated p-BNP as well as imaging that reflects pulmonary edema consistent with CHF. Patient presents with elevated INR. --Hemoptysis With diffuse groundglass opacities appreciated on the CAT scan along with bilateral pleural effusion Patient's INR at presentation was 4.3 The most likely cause of his hemoptysis Continue with antitussive medication Alveolar hemorrhage is also a possibility but less likely given there is improvement on the chest x-ray today after giving diuretics. --Diastolic CHF with CKD EF 55-60%, moderate concentric LVH Patient also has CKD stage III BNP 9251 on presentation Both of the above playing a role in fluid overload which might give groundglass opacities as well as bilateral pleural effusion which the patient has Continue with diuresis as tolerated and keep the patient negative balance --Ex-smoker Approximately [id number] smoking history Quit 40 years ago PFTs as an outpatient Plan: Patient's H&H is stable. Hemoptysis is decreased in amount. INR has improved from 4.3--> 2.3 Continue with antitussive medication. Chest x-ray also shows improvement in bilateral alveolar thickening and alveolar opacities, this likely implies of the patient was volume overloaded. The likelihood of alveolar hemorrhage is very low. Patient needs very close follow-up with nephrology. Recommend diuretics on a daily basis. No intervention from pulmonary perspective right now. Please note the above document was generated using voice recognition software. It may contain grammatical, syntax or spelling errors.Any formal questions or concerns about the content, text or information contained within the body of this dictation should be directly addressed to the provider for clarification. (2) Elevated INR: (3) CHF (congestive heart failure): Admission and Anticipated Discharge Date Admission Date: September 27, 2020 Subjective Patient seen and examined at bedside. No acute distress, no adverse events overnight. Patient states that his shortness of breath is significantly improved compared to when he presented to the hospital. He still gets short of breath on exertion. Hemoptysis has decreased in amount and frequency. He is urinating. Denies any chest pain, no headache, no nausea, no vomiting. Afebrile Review of Systems Review of Systems: All systems reviewed & are unremarkable except as noted in Subjective Physical Exam Physical Exam: Constitutional: No acute distress HEENT: EOMI, PERRLA Respiratory system: Decreased air entry bilaterally, no wheeze, no rhonchi, positive crackles bilateral lower lobes CVS: S1-S2 positive, 3 out of 6 murmur appreciated best at the apex, distant heart sounds Abdomen: Soft, nontender, nondistended, positive bowel sounds x4, obese Extremities: +2 pulses bilaterally radialis/left dorsalis pedis, no cyanosis, right BKA, positive edema left lower extremity Neuro: Awake alert oriented x3 Psych: Normal mood and affect G/U: No [place] Skin: no rashes, warm and dry Lymphatic: no cervical or axillary lymphadenopathy Results & Data Results & Data ([facility]) Vital Signs (Past 12 Hours) Vital Signs Temp Pulse Resp BP Pulse Ox 09/28/20 19:24 97 H 16 95 09/28/20 19:00 36.6 C 88 20 164/92 H 95 09/28/20 16:10 36.7 C 76 18 106/64 94 09/28/20 16:08 97 H 18 96 09/28/20 11:53 36.6 C 78 18 130/60 95 09/28/20 07:33 09/28/20 07:33 PG Care Time/CCT Total # of Minutes Spent Total Time Spent with Patient: Total time spent is greater than 50% in coordination of care (as documented) at patient's floor/unit and/or counseling patient: Coding Level of Care Code 32272 Subseq Hosp Care Lvl 3 Diagnoses Cough with hemoptysis R04.2 Elevated INR R79.1 CHF (congestive heart failure) I50.9
--- NOTE | 2020-09-28 22:41 | Hospitalist Progress Note ---
Date of Service September 28, 2020 Assessment & Plan (1) Acute on chronic systolic heart failure: repeat echo today with EF 45-50% - unchanged from prior echo. advanced CKD could also be contributing to volume overload/pulm edema. still volume overloaded. cont diuresis. cont BB. Creatinine rising - stop SANDRA. BMP am. cont hearth healthy diet, daily weight, etc. (2) Acute respiratory failure with hypoxia: 2nd to acute/chronic systolic CHF, probable bronchitis vs pneumonia 2nd to rhinovirus. cont care for both. still w/ O2 requirement. (3) Warfarin-induced coagulopathy: INR >4 at presentation. now resolved. hemoptysis nearly resolve; hold warfarin again today; repeat INR am. (4) Cough with hemoptysis: Likely that coumadin use and supratherapeutic INR is contributed to hemoptysis. Pulmonary edema and rhinovirus infection also likely contributed to hemoptysis. Hemoptysis just about resolved and H/H stable. (5) Bilateral interstitial pneumonia: Likely viral pneumonia 2nd rhinovirus. blood cultures negative. abx have been stopped. cxr improved c/w improving pulmonary edema. (6) Elevated troponin: Likely myocardial demand ischemia in setting of decompensated CHF, viral pneumonia/viral infection (rhinovirus), etc. (7) Chronic kidney insufficiency: Baseline Cr about 2.5 to 3 and baseline CrCl 30s. Mild [place] - this is improving. BMP in am. HOLD SANDRA. (8) Nonischemic cardiomyopathy: Patient with history of NICM s/p AICD placement in 2007 with conversion to Bi-ventricular AICD in 2012 Cont IV diuresis. Continue Metoprolol and Hydralazine. Monitor I/Os, weights; fluid restrict as well. EF 45-50% on echo today. Hold SANDRA due to CKD. (9) Biventricular ICD (implantable cardioverter-defibrillator) in place: noted pacing on monitor (10) Atrial fibrillation: cont metoprolol paced on coumadin chronically; held due to supratherapeutic INR (11) Hypertension: Cont home meds but hold SANDRA moving forward. BPs acceptable. (12) Hypothyroidism: TSH 4.5 on 08/23/20. Would leave synthroid as is. (13) Acute kidney injury: Improving. likely due to volume overloaded state. Cont diuresis. BMP am. cont PT/OT appreciate pulmonary assistance Admission and Anticipated Discharge Date Admission Date: September 27, 2020 Subjective patient feeling better today. still with [place], however. hemoptysis nearly resolved. good appetite. wheezing improved. overall feels better. Review of Systems Constitutional: no fever, no chills, no fatigue and no anorexia Respiratory: + cough, + dyspnea on exertion, + hemoptysis and + sputum production Cardiovascular: no chest pain and no dyspnea at rest Gastrointestinal: no abdominal pain Physical Exam Constitutional: well developed and well nourished; no acute distress and no altered mental status ENMT: external ear and nose normal, oropharynx normal Respiratory: no respiratory distress Auscultation: + crackles (bases but improved today; better airation ); no wheezes (resolved today ) Cardiovascular: Rate/Rhythm: regular rate and regular rhythm Heart Sounds: normal S1 and normal S2 Vessels: posterior tibial pulses present and dorsalis pedis pulses present; no JVD (resolved today ) Extremities: + edema (<1+ b/l ) Gastrointestinal (Abdomen): normal bowel sounds, soft, nontender, no hepatosplenomegaly Psychiatric: A+Ox3, euthymic affect Results & Data Results & Data ([facility]) Vital Signs (Past 12 Hours) Vital Signs Temp Pulse Resp BP Pulse Ox 09/28/20 19:24 97 H 16 95 09/28/20 19:00 36.6 C 88 20 164/92 H 95 09/28/20 16:10 36.7 C 76 18 106/64 94 09/28/20 16:08 97 H 18 96 09/28/20 11:53 36.6 C 78 18 130/60 95 Laboratory Results Laboratory Results - last 24 hr 09/28/20 09/28/20 09/28/20 07:33 07:33 07:33 WBC 11.38 H RBC 3.55 L Hgb 10.0 L Hct 32.4 L MCV 91.3 MCH 28.2 MCHC 30.9 L RDW Std Deviation 55.1 H RDW Coeff of Nicolasa 17.0 H Plt Count 354 MPV 10.1 Immature Gran % (Auto) 0.3 Neut % (Auto) 78.6 Lymph % (Auto) 10.6 [place] % (Auto) 6.6 Eos % (Auto) 3.6 Baso % (Auto) 0.3 Neut # (Auto) 8.95 H Lymph # (Auto) 1.21 [place] # (Auto) 0.75 H Eos # (Auto) 0.41 Baso # (Auto) 0.03 Immature Gran # (Auto) 0.03 H PT 23.4 H INR 2.3 H Sodium 138 Potassium 4.0 Chloride 102 Carbon Dioxide 27 Anion Gap 9.0 BUN 47 H Creatinine 3.30 H Est Cr Clr Drug Dosing 26.3 Est GFR ( Amer) 20.2 Est GFR (Non-Af Amer) 17.4 BUN/Creatinine Ratio 14.2 Glucose 83 POC Glucose Calcium 9.6 09/28/20 09/28/20 09/28/20 07:41 11:48 16:41 WBC RBC Hgb Hct MCV MCH MCHC RDW Std Deviation RDW Coeff of Nicolasa Plt Count MPV Immature Gran % (Auto) Neut % (Auto) Lymph % (Auto) [place] % (Auto) Eos % (Auto) Baso % (Auto) Neut # (Auto) Lymph # (Auto) [place] # (Auto) Eos # (Auto) Baso # (Auto) Immature Gran # (Auto) PT INR Sodium Potassium Chloride Carbon Dioxide Anion Gap BUN Creatinine Est Cr Clr Drug Dosing Est GFR ( Amer) Est GFR (Non-Af Amer) BUN/Creatinine Ratio Glucose POC Glucose 89 186 H 65 L* Calcium 09/28/20 09/28/20 09/28/20 16:43 17:03 20:02 WBC RBC Hgb Hct MCV MCH MCHC RDW Std Deviation RDW Coeff of Nicolasa Plt Count MPV Immature Gran % (Auto) Neut % (Auto) Lymph % (Auto) [place] % (Auto) Eos % (Auto) Baso % (Auto) Neut # (Auto) Lymph # (Auto) [place] # (Auto) Eos # (Auto) Baso # (Auto) Immature Gran # (Auto) PT INR Sodium Potassium Chloride Carbon Dioxide Anion Gap BUN Creatinine Est Cr Clr Drug Dosing Est GFR ( Amer) Est GFR (Non-Af Amer) BUN/Creatinine Ratio Glucose POC Glucose 66 L* 91 140 H Calcium PG Care Time/CCT Total # of Minutes Spent Total Time Spent with Patient: Total time spent is greater than 50% in coordination of care (as documented) at patient's floor/unit and/or counseling patient: Coding Level of Care Code 63895 Subseq Hosp Care Lvl 3 Diagnoses Acute on chronic systolic heart failure I50.23 Acute respiratory failure with hypoxia J96.01 Warfarin-induced coagulopathy D68.32; T45.515A Cough with hemoptysis R04.2 Bilateral interstitial pneumonia J84.9 Elevated troponin R77.8 Chronic kidney insufficiency N18.32 Chronic kidney disease stage: stage 3 (moderate) Chronic kidney disease stage 3 subtype: stage 3b (GFR 30-44) Nonischemic cardiomyopathy I42.8 Biventricular ICD (implantable cardioverter-defibrillator) in place Z95.810 Atrial fibrillation I48.91 Atrial fibrillation type: unspecified Hypertension I10 Hypertension type: essential hypertension Hypothyroidism E03.9 Hypothyroidism type: acquired Acute kidney injury N17.9 (1) Atrial fibrillation Atrial fibrillation type: unspecified Qualified Code(s): I48.91 - Unspecified atrial fibrillation (2) Hypothyroidism Hypothyroidism type: acquired Qualified Code(s): E03.9 - Hypothyroidism, unspecified (3) Chronic kidney insufficiency Chronic kidney disease stage: stage 3 (moderate) Chronic kidney disease stage 3 subtype: stage 3b (GFR 30-44) Qualified Code(s): N18.32 - Chronic kidney disease, stage 3b (4) Hypertension Hypertension type: essential hypertension Qualified Code(s): I10 - Essential (primary) hypertension
[2020-09-29] MEDS: LEVOTHYROXINE SODIUM 112 MCG TABLET PO SCH (06:12)
[2020-09-29] MEDS: ALBUTEROL HFA 8 GM INHALER INH SCH ×2 (07:30→11:02)
[2020-09-29] MEDS: IPRATROPIUM BROMIDE HFA INHALER INH SCH ×2 (07:30→11:02)
[2020-09-29 07:54] LABS: INR 1.4 (0.9-1.1); Prothrombin Time 14.7 Seconds (9.0-12.0)
[2020-09-29 08:06] LABS: BUN Creatinine Ratio 15.7 (10-20); Est GFR (African American) 19.1; Est GFR (Non-African American) 16.5; Potassium 4.3 mmol/L (3.5-5.1)
[2020-09-29] MEDS: INSULIN HUMAN NPH SC SCH ×4 (08:13→17:19)
[2020-09-29] MEDS: SIMVASTATIN 40 MG TAB PO SCH (08:14)
[2020-09-29] MEDS: CHOLECALCIFEROL 1,000 UNITS 25 MCG TAB PO SCH ×2 (08:14→20:36)
[2020-09-29] MEDS: hydrALAZINE TAB 50 MG TAB PO SCH ×2 (08:14→20:32)
[2020-09-29] MEDS: allopurinoL 300 MG TAB PO SCH (08:14)
[2020-09-29] MEDS: METOPROLOL TARTRATE 50 MG TAB PO SCH ×2 (08:14→20:35)
[2020-09-29] MEDS: lisinopril 5 MG TAB PO SCH (08:14)
[2020-09-29] MEDS: FENOFIBRATE NANOCRYSTALLIZED 48 MG TABLET PO SCH (08:14)
[2020-09-29] MEDS: INSULIN ASPART 100 UNITS/ML 3 ML PEN SC SCH ×4 (08:15→20:53)
[2020-09-29 08:20] LABS: Basophils # (auto) 0.03 K/uL (0-0.2); Basophils % (auto) 0.3 %; Eosinophils # (auto) 0.62 K/uL (0-0.5); Eosinophils % (auto) 6.7 %; Hematocrit (blood only) 30.2 % (42-52); Hemoglobin 9.2 g/dL (14.0-18.0); Immature Granulocytes # (auto) 0.02 K/uL (0.00-0.02); Immature Granulocytes % (auto) 0.2 %; Lymphocytes # (auto) 1.31 K/uL (1.2-3.4); Lymphocytes % (auto) 14.3 %; Mean Corpuscular Hgb Conc 30.5 g/dL (32-36); Mean Corpuscular Volume 91.8 fL (80-100); Mean Platelet Volume 10.4 fL (7.4-10.4); Monocytes # (auto) 0.97 K/uL (0.11-0.59); Monocytes % (auto) 10.6 %; Neutrophils # (auto) 6.24 K/uL (1.4-6.5); Neutrophils % (auto) 67.9 %; Platelet Count 353 K/uL (130-400); RDW Coefficient of Variation 17.3 % (11.5-14.5); RDW Standard Deviation 56.1 fL (36.4-46.3); Red Blood Count 3.29 M/uL (4.7-6.1); White Blood Count 9.19 K/uL (4.8-10.8)
[2020-09-29] MEDS ORDERED: BUMETANIDE 2 MG in SYRINGE 0 ML IV ONE ×2 (10:00→19:00)
--- NOTE | 2020-09-29 11:58 | Pulmonology Progress Note ---
Date of Service September 29, 2020 Assessment & Plan (1) Cough with hemoptysis: This is a 74 yo male that presented with cough and osman hemoptysis. He also appears to be in acute exacerbation of CHF with an elevated p-BNP as well as imaging that reflects pulmonary edema consistent with CHF. Patient presents with elevated INR. --Hemoptysis With diffuse groundglass opacities appreciated on the CAT scan along with bilateral pleural effusion Patient's INR at presentation was 4.3 which is most likely cause of his hemoptysis Continue with antitussive medication Alveolar hemorrhage is also a possibility but less likely given there is improvement on the chest x-ray today after giving diuretics. --Diastolic CHF with CKD EF 55-60%, moderate concentric LVH Patient also has CKD stage III BNP 9251 on presentation Both of the above playing a role in fluid overload which might give groundglass opacities as well as bilateral pleural effusion which the patient has Continue with diuresis as tolerated and keep the patient negative balance --Ex-smoker Approximately [id number] smoking history Quit 40 years ago PFTs as an outpatient --Morbid obesity Patient likely has PINKY Will benefit from outpatient sleep study Plan: Patient clinically doing better. H&H is stable. Hemoptysis is decreasing. INR today is 1.3. If the patient's hemoptysis is stable. Could resume warfarin. Two-step to check if the patient will need oxygen when he goes home. Continue with diuresis as tolerated. Patient needs very close follow-up with nephrology. Recommend diuretics on a daily basis. No intervention from pulmonary perspective right now. Recommend discharging the patient on Spiriva/Incruse on a daily basis. Outpatient sleep study No further recommendations from pulmonary perspective. We will sign off. Recall as needed. Please note the above document was generated using voice recognition software. It may contain grammatical, syntax or spelling errors.Any formal questions or concerns about the content, text or information contained within the body of this dictation should be directly addressed to the provider for clarification. (2) Elevated INR: (3) CHF (congestive heart failure): Admission and Anticipated Discharge Date Admission Date: September 27, 2020 Subjective Patient seen and examined at bedside. No acute distress, no adverse events overnight. Patient feeling much better. Hemoptysis has decreased in amount and intensity. He coughed up last night couple of times. Denies any chest pain. Shortness of breath has improved. Urinating well. Denies any fever or chills. No dysuria. Review of Systems Review of Systems: All systems reviewed & are unremarkable except as noted in Subjective Physical Exam Physical Exam: Constitutional: No acute distress HEENT: EOMI, PERRLA Respiratory system: Decreased air entry bilaterally (improved from before), no wheeze, no rhonchi, minimal crackles bilateral lower lobes CVS: S1-S2 positive, 3 out of 6 murmur appreciated best at the apex, distant he art sounds Abdomen: Soft, nontender, nondistended, positive bowel sounds x4, obese Extremities: +2 pulses bilaterally radialis/left dorsalis pedis, no cyanosis, right BKA, +2 edema left lower extremity Neuro: Awake alert oriented x3 Psych: Normal mood and affect G/U: No [place] Skin: no rashes, warm and dry Lymphatic: no cervical or axillary lymphadenopathy Results & Data Results & Data ([facility]) Vital Signs (Past 12 Hours) Vital Signs Temp Pulse Resp BP Pulse Ox 09/29/20 11:42 36.6 C 65 20 112/68 94 09/29/20 11:07 72 16 96 09/29/20 07:31 72 16 93 09/29/20 07:00 36.7 C 76 18 115/86 95 09/29/20 03:59 36.6 C 70 19 123/76 94 09/29/20 07:15 09/29/20 07:12 PG Care Time/CCT Total # of Minutes Spent Total Time Spent with Patient: Total time spent is greater than 50% in coordination of care (as documented) at patient's floor/unit and/or counseling patient: Coding Level of Care Code 69629 Subseq Hosp Care Lvl 3 Diagnoses Cough with hemoptysis R04.2 Elevated INR R79.1 CHF (congestive heart failure) I50.9
[2020-09-29] MEDS ORDERED: SODIUM CHLORIDE 0.65% NA SOLN 45 ML (OCEAN) PRN (12:19)
--- NOTE | 2020-09-29 13:53 | Pharmacy Report ---
Pharmacy Glycemic Short Note 2 - Date of Service September 29, 2020 - Glycemic Short BSG Results (Last 24 hours): 09/28/20 09/28/20 09/28/20 16:41 16:43 17:03 Glucose POC Glucose 65 L* 66 L* 91 09/28/20 09/29/20 09/29/20 20:02 07:12 07:59 Glucose 171 H POC Glucose 140 H 188 H 09/29/20 11:43 Glucose POC Glucose 272 H OUTPATIENT ANTIDIABETIC REGIMEN: * NovoLog 70/30 premixed insulin 100 units in AM with breakfast + 90 units SQ in PM dinner * A1c = 10.1% on 09/27/2020 ASSESSMENT: 09/29: * Pt has received 72 units of insulin over the past 24hrs * 60 units of basal insulin with NPH * 12 units of bolus insulin with NovoLog * BSGs ranging 65-272 mg/dl * NPH lowered yesterday, lowered again today d/t hypoglycemia yesterday, but did result in hyperglycemia prior to lunch. * No change to CF/CR at this time. 09/28: * Pt has received 86 units of insulin over the past 24hrs * 80 units of basal insulin with NPH * 6 units of bolus insulin with NovoLog * BSGs ranging 89-177 mg/dl * Diet advanced from NPO to DMT2 however pt with very little PO intake. * BSGs all below goal range for inpatient targets despite decreasing outpatient dosing by 60%. Will decrease basal insulin by another 25% to prevent low BSG. * No change to CF/CR since this has not been given over the past 24hrs. Unable to assess parameters 09/27: * 74 yo T2DM male admitted with PNA * Poor outpatient diabetes control per A1c. Unsure if this is secondary to compliance issues vs underdosing insulin issue * Outpatient regimen is premixed basal/prandial insulin of NovoLog 70/30 mix insulin. * Pre-mixed insulin is difficult to titrate since it is already in a fixed distribution of basal:prandial insulin. Continuing pre-mixed insulin for admission typically lead to hypoglycemia d/t changing PO status but rapid acting insulin is unable to be held. * Home regimen will be held for admission per pharmacy consult. Will utilize recommended regimen of SQ basal bolus insulin regimen with NPH + NovoLog (CF+ CR) * Pt NPO - typically patients require 20-50% dose reduction in insulin dosing while NPO. Since patient missed insulin dose last evening without resulting severe hyperglycemia this AM will dosing more aggressively - decrease by ~60% and titrate based on BSG trends. PLAN FOR INPATIENT GLYCEMIC CONTROL: * Hold outpatient pre-mixed insulin * Basal insulin: * DECREASE NPH 30 units SQ BIDM to NPH 25 units SQ BIDM * Bolus insulin: no change * NovoLog per scale ACHS or Q6hrs while NPO * Goal Range: Low 120 mg/dL - High 160 mg/dL * Correction Factor: 15 mg/dL/unit * Nutritional / Prandial insulin per carb ratio of 1 unit per 5 grams CHO consumed
[2020-09-29] MEDS ORDERED: IPRATROPIUM BROMIDE HFA INHALER INH PRN (14:10)
[2020-09-29] MEDS ORDERED: ALBUTEROL HFA 8 GM INHALER INH PRN (14:10)
[2020-09-29] MEDS: MUPIROCIN 2% OINT 22 GM TUBE SCH ×2 (17:21→20:33)
[2020-09-29] MEDS: WARFARIN SOD 10 MG TAB PO SCH (17:24)
--- NOTE | 2020-09-29 22:36 | Hospitalist Progress Note ---
Date of Service September 29, 2020 Assessment & Plan (1) Acute on chronic systolic heart failure: suspect we are approaching euvolemic. Cr rising with diuresis. repeat echo this admission with EF 45-50% - unchanged from prior echo. advanced CKD could also be contributing to volume overload/pulm edema. IV bumex today, then hold additional diuresis until seeing labs tomorrow am. cont BB. Creatinine rising - stopped SANDRA. BMP am. cont hearth healthy diet, daily weight, etc. (2) Acute respiratory failure with hypoxia: 2nd to acute/chronic systolic CHF, probable bronchitis vs pneumonia 2nd to rhinovirus. cont care for both. still w/ O2 requirement. wean as tolerated. (3) Warfarin-induced coagulopathy: INR >4 at presentation. now resolved. hemoptysis nearly resolve; resume warfarin today. INR am. (4) Cough with hemoptysis: Likely that coumadin use and supratherapeutic INR contributed to hemoptysis. Pulmonary edema and rhinovirus infection also likely contributed to hemoptysis. Hemoptysis just about resolved and H/H stable. (5) Bilateral interstitial pneumonia: Likely viral pneumonia 2nd rhinovirus. blood cultures negative. abx have been stopped. cxr in am. (6) Elevated troponin: Likely myocardial demand ischemia in setting of decompensated CHF, viral pneumonia/viral infection (rhinovirus), etc. (7) Chronic kidney insufficiency: Baseline Cr about 2.5 to 3 and baseline CrCl 30s. Mild superimposed [place]. BMP in am. HOLD SANDRA. (8) Nonischemic cardiomyopathy: Patient with history of NICM s/p AICD placement in 2007 with conversion to Bi-ventricular AICD in 2012 Cont IV diuresis. Continue Metoprolol and Hydralazine. Monitor I/Os, weights; fluid restrict as well. EF 45-50% on echo today. Hold SANDRA due to CKD. (9) Biventricular ICD (implantable cardioverter-defibrillator) in place: noted pacing on monitor (10) Atrial fibrillation: cont metoprolol paced on coumadin chronically; held due to supratherapeutic INR initially but resume today. INR am. (11) Hypertension: Cont home meds but holding SANDRA. BPs acceptable. (12) Hypothyroidism: TSH 4.5 on 08/23/20. Would leave synthroid as is. (13) Acute kidney injury: 2nd diuresis. SANDRA held. BMP am. cont PT/OT appreciate pulmonary assistance Admission and Anticipated Discharge Date Admission Date: September 27, 2020 Subjective patient still coughing but improved. hemoptysis nearly resolved. last episode was scant amount of old blood. dyspnea improved. sats, unfortunately, dropped to upper 80s when O2 removed this am; staff put O2 back on. eating well. no chest pain or abd pain. Review of Systems Constitutional: no fever and no chills Cardiovascular: no chest pain Gastrointestinal: no abdominal pain, no nausea and no vomiting Physical Exam Constitutional: well developed and well nourished; no acute distress and no altered mental status ENMT: external ear and nose normal, oropharynx normal Respiratory: no respiratory distress Auscultation: + crackles (minimal bases ); no wheezes Cardiovascular: Rate/Rhythm: regular rate and regular rhythm Heart Sounds: normal S1 and normal S2 Vessels: posterior tibial pulses present and dorsalis pedis pulses present; no JVD Extremities: + edema (trace LLE ) Gastrointestinal (Abdomen): normal bowel sounds, soft, nontender, no hepatosplenomegaly Psychiatric: A+Ox3, euthymic affect Results & Data Results & Data ([facility]) Vital Signs (Past 12 Hours) Vital Signs Temp Pulse Pulse Resp BP Pulse Ox 09/29/20 19:18 36.6 C 78 20 131/76 95 09/29/20 15:54 36.5 C 80 20 123/68 92 09/29/20 15:31 71 09/29/20 14:41 96 09/29/20 11:42 36.6 C 65 20 112/68 94 09/29/20 11:07 72 16 96 Laboratory Results Laboratory Results - last 24 hr 09/29/20 09/29/20 09/29/20 07:12 07:12 07:15 WBC 9.19 RBC 3.29 L Hgb 9.2 L Hct 30.2 L MCV 91.8 MCH 28.0 MCHC 30.5 L RDW Std Deviation 56.1 H RDW Coeff of Nicolasa 17.3 H Plt Count 353 MPV 10.4 Immature Gran % (Auto) 0.2 Neut % (Auto) 67.9 Lymph % (Auto) 14.3 [place] % (Auto) 10.6 Eos % (Auto) 6.7 Baso % (Auto) 0.3 Neut # (Auto) 6.24 Lymph # (Auto) 1.31 [place] # (Auto) 0.97 H Eos # (Auto) 0.62 H Baso # (Auto) 0.03 Immature Gran # (Auto) 0.02 PT 14.7 H INR 1.4 H Sodium 136 Potassium 4.3 Chloride 102 Carbon Dioxide 29 Anion Gap 5.0 BUN 54 H Creatinine 3.46 H Est Cr Clr Drug Dosing 25.0 Est GFR ( Amer) 19.1 Est GFR (Non-Af Amer) 16.5 BUN/Creatinine Ratio 15.7 Glucose 171 H POC Glucose Calcium 9.0 09/29/20 09/29/20 09/29/20 07:59 11:43 16:33 WBC RBC Hgb Hct MCV MCH MCHC RDW Std Deviation RDW Coeff of Nicolasa Plt Count MPV Immature Gran % (Auto) Neut % (Auto) Lymph % (Auto) [place] % (Auto) Eos % (Auto) Baso % (Auto) Neut # (Auto) Lymph # (Auto) [place]oup # (Auto) Eos # (Auto) Baso # (Auto) Immature Gran # (Auto) PT INR Sodium Potassium Chloride Carbon Dioxide Anion Gap BUN Creatinine Est Cr Clr Drug Dosing Est GFR ( Amer) Est GFR (Non-Af Amer) BUN/Creatinine Ratio Glucose POC Glucose 188 H 272 H 133 H Calcium 09/29/20 20:51 WBC RBC Hgb Hct MCV MCH MCHC RDW Std Deviation RDW Coeff of Nicolasa Plt Count MPV Immature Gran % (Auto) Neut % (Auto) Lymph % (Auto) [place] % (Auto) Eos % (Auto) Baso % (Auto) Neut # (Auto) Lymph # (Auto) [place]oup # (Auto) Eos # (Auto) Baso # (Auto) Immature Gran # (Auto) PT INR Sodium Potassium Chloride Carbon Dioxide Anion Gap BUN Creatinine Est Cr Clr Drug Dosing Est GFR ( Amer) Est GFR (Non-Af Amer) BUN/Creatinine Ratio Glucose POC Glucose 125 H Calcium PG Care Time/CCT Total # of Minutes Spent Total Time Spent with Patient: Total time spent is greater than 50% in coordination of care (as documented) at patient's floor/unit and/or counseling patient: Coding Level of Care Code 99976 Subseq Hosp Care Lvl 2 Diagnoses Acute on chronic systolic heart failure I50.23 Acute respiratory failure with hypoxia J96.01 Warfarin-induced coagulopathy D68.32; T45.515A Cough with hemoptysis R04.2 Bilateral interstitial pneumonia J84.9 Elevated troponin R77.8 Chronic kidney insufficiency N18.32 Chronic kidney disease stage: stage 3 (moderate) Chronic kidney disease stage 3 subtype: stage 3b (GFR 30-44) Nonischemic cardiomyopathy I42.8 Biventricular ICD (implantable cardioverter-defibrillator) in place Z95.810 Atrial fibrillation I48.91 Atrial fibrillation type: unspecified Hypertension I10 Hypertension type: essential hypertension Hypothyroidism E03.9 Hypothyroidism type: acquired Acute kidney injury N17.9 (1) Atrial fibrillation Atrial fibrillation type: unspecified Qualified Code(s): I48.91 - Unspecified atrial fibrillation (2) Hypothyroidism Hypothyroidism type: acquired Qualified Code(s): E03.9 - Hypothyroidism, unspecified (3) Chronic kidney insufficiency Chronic kidney disease stage: stage 3 (moderate) Chronic kidney disease stage 3 subtype: stage 3b (GFR 30-44) Qualified Code(s): N18.32 - Chronic kidney disease, stage 3b (4) Hypertension Hypertension type: essential hypertension Qualified Code(s): I10 - Essential (primary) hypertension
[2020-09-30] MEDS: LEVOTHYROXINE SODIUM 112 MCG TABLET PO SCH (05:35)
--- NOTE | 2020-09-30 07:13 | XRay Report ---
XR chest 1V portable CLINICAL HISTORY: f/u COMPARISON STUDY: Chest CT September 26, 2020. Chest radiograph September 28, 2020. FINDINGS: Left subclavian biventricular pacer/AICD is in place. Cardiomegaly is noted. There are smal l bilateral pleural effusions. No pneumothorax is present. Mild interstitial thickening persists. No lobar consolidation is present. IMPRESSION: 1. No significant change in interstitial thickening which favors pulmonary edema. An infectious etiol ogy is within the differential as well. 2. Small bilateral pleural effusions. ACT 112: Negative or not required by law. Electronically signed by: Nimesh Freire M.D. 09/30/2020 7:12 AM
[2020-09-30] MEDS: UMECLIDINIUM BROMIDE 62.5MCG/BLISTER 7 PUFFS/INHALER INH SCH (08:50)
[2020-09-30] MEDS: hydrALAZINE TAB 50 MG TAB PO SCH ×2 (08:51→22:25)
[2020-09-30] MEDS: METOPROLOL TARTRATE 50 MG TAB PO SCH ×2 (08:52→22:26)
[2020-09-30] MEDS: FENOFIBRATE NANOCRYSTALLIZED 48 MG TABLET PO SCH (08:52)
[2020-09-30] MEDS: CHOLECALCIFEROL 1,000 UNITS 25 MCG TAB PO SCH ×2 (08:52→22:26)
[2020-09-30] MEDS: allopurinoL 300 MG TAB PO SCH (08:52)
[2020-09-30] MEDS: SIMVASTATIN 40 MG TAB PO SCH (08:52)
[2020-09-30] MEDS: MUPIROCIN 2% OINT 22 GM TUBE SCH ×2 (08:54→22:25)
[2020-09-30] MEDS: INSULIN ASPART 100 UNITS/ML 3 ML PEN SC SCH ×4 (08:59→22:30)
[2020-09-30] MEDS: INSULIN HUMAN NPH SC SCH ×2 (09:01→17:31)
[2020-09-30 09:03] LABS: INR 1.3 (0.9-1.1); Prothrombin Time 13.2 Seconds (9.0-12.0)
[2020-09-30 09:06] LABS: Calcium 9.5 mg/dl (8.5-10.1); Creatinine Clr Calc Pharmacy 22.4 ml/min; Est GFR (African American) 16.4; Est GFR (Non-African American) 14.1
--- NOTE | 2020-09-30 14:41 | Pharmacy Report ---
Pharmacy Glycemic Short Note 2 - Date of Service September 30, 2020 - Glycemic Short BSG Results (Last 24 hours): 09/29/20 09/29/20 09/30/20 16:33 20:51 07:50 Glucose POC Glucose 133 H 125 H 83 09/30/20 09/30/20 08:05 11:36 Glucose 75 POC Glucose 216 H OUTPATIENT ANTIDIABETIC REGIMEN: * NovoLog 70/30 premixed insulin 100 units in AM with breakfast + 90 units SQ in PM dinner * A1c = 10.1% on 09/27/2020 ASSESSMENT: 09/30: * Pt has received 83 units of insulin over the past 24hrs * 50 units of basal insulin with NPH * 33 units of bolus insulin with NovoLog * BSGs ranging 75-216 mg/dl * Fasting blood sugar 75mg/dl - will decrease PM dose of NPH to prevent AM hypoglycemia. * No change to CF/CR at this time. 09/29: * Pt has received 72 units of insulin over the past 24hrs * 60 units of basal insulin with NPH * 12 units of bolus insulin with NovoLog * BSGs ranging 65-272 mg/dl * NPH lowered yesterday, lowered again today d/t hypoglycemia yesterday, but did result in hyperglycemia prior to lunch. * No change to CF/CR at this time. 09/28: * Pt has received 86 units of insulin over the past 24hrs * 80 units of basal insulin with NPH * 6 units of bolus insulin with NovoLog * BSGs ranging 89-177 mg/dl * Diet advanced from NPO to DMT2 however pt with very little PO intake. * BSGs all below goal range for inpatient targets despite decreasing outpatient dosing by 60%. Will decrease basal insulin by another 25% to prevent low BSG. * No change to CF/CR since this has not been given over the past 24hrs. Unable to assess parameters 09/27: * 74 yo T2DM male admitted with PNA * Poor outpatient diabetes control per A1c. Unsure if this is secondary to compliance issues vs underdosing insulin issue * Outpatient regimen is premixed basal/prandial insulin of NovoLog 70/30 mix insulin. * Pre-mixed insulin is difficult to titrate since it is already in a fixed distribution of basal:prandial insulin. Continuing pre-mixed insulin for admission typically lead to hypoglycemia d/t changing PO status but rapid acting insulin is unable to be held. * Home regimen will be held for admission per pharmacy consult. Will utilize recommended regimen of SQ basal bolus insulin regimen with NPH + NovoLog (CF+CR) * Pt NPO - typically patients require 20-50% dose reduction in insulin dosing while NPO. Since patient missed insulin dose last evening without resulting severe hyperglycemia this AM will dosing more aggressively - decrease by ~60% and titrate based on BSG trends. PLAN FOR INPATIENT GLYCEMIC CONTROL: * Hold outpatient pre-mixed insulin * Basal insulin: decrease PM dose * NPH 25 units with breakfast, 20 units with dinner * Bolus insulin: no change * NovoLog per scale ACHS or Q6hrs while NPO * Goal Range: Low 120 mg/dL - High 160 mg/dL * Correction Factor: 15 mg/dL/unit * Nutritional / Prandial insulin per carb ratio of 1 unit per 5 grams CHO consumed
[2020-09-30] MEDS: WARFARIN SOD 10 MG TAB PO SCH (17:33)
--- NOTE | 2020-09-30 22:42 | Hospitalist Progress Note ---
Date of Service September 30, 2020 Assessment & Plan (1) Acute on chronic systolic heart failure: euvolemic or slightly dry today. Cr christi to 3.9 overnight. will stop IV diuretics. O2 weaned off, lung exam normal, and no JVD. any lingering O2 requirement or dyspnea may be related to rhinovirus infection. repeat echo this admission with EF 45-50% - unchanged from prior echo. advanced CKD could also be contributing to volume overload/pulm edema. holding SANDRA in light of CKD and [place]. BMP am. cont hearth healthy diet, daily weight, etc. (2) Acute respiratory failure with hypoxia: resolved. 2nd to acute/chronic systolic CHF along with probable bronchitis vs pneumonia 2nd to rhinovirus. o2 weaned off. (3) Warfarin-induced coagulopathy: INR >4 at presentation. now resolved. hemoptysis resolved. warfarin resumed 09/29/20. INR am. (4) Cough with hemoptysis: Likely that coumadin use and supratherapeutic INR contributed to hemoptysis. Pulmonary edema and rhinovirus infection also likely contributed to hemoptysis. Hemoptysis resolved. H/H stable. (5) Bilateral interstitial pneumonia: Likely viral pneumonia 2nd rhinovirus. blood cultures negative. abx have been stopped. cxr stable today; interstitial infiltrate likely from the rhinovirus. (6) Elevated troponin: Likely myocardial demand ischemia in setting of decompensated CHF, viral pneumonia/viral infection (rhinovirus), etc. (7) Chronic kidney insufficiency: Baseline Cr about 2.5 to 3 and baseline CrCl 30s. Mild superimposed [place]. BMP in am. HOLD SANDRA. (8) Nonischemic cardiomyopathy: Patient with history of NICM s/p AICD placement in 2007 with conversion to Bi-ventricular AICD in 2012 Continue Metoprolol and Hydralazine. Stop IV diuretics today. EF 45-50% on echo this admission. Hold SANDRA due to CKD and [place]. (9) Biventricular ICD (implantable cardioverter-defibrillator) in place: noted pacing on monitor (10) Atrial fibrillation: cont metoprolol paced on coumadin chronically; held due to supratherapeutic INR at admission but coumadin resumed 09/29/20. INR am. (11) Hypertension: Cont home meds but holding SANDRA. BPs acceptable. (12) Hypothyroidism: TSH 4.5 on 08/23/20. Would leave synthroid as is. (13) Acute kidney injury: 2nd diuresis. SANDRA held. BMP am. stop IV diuretics. cont PT/OT appreciate pulmonary assistance Admission and Anticipated Discharge Date Admission Date: September 27, 2020 Subjective patient overall doing well. has minimal amount of [place]. mild cough but improved. hemoptysis resolved. eating well. during the visit I took O2 off. sats were 92-94% in room air. left the NC O2 off. edema left leg resolved. Review of Systems Constitutional: no fever, no chills, no body aches, no fatigue and no anorexia Respiratory: + cough and + dyspnea on exertion; no hemoptysis and no wheezing Cardiovascular: no chest pain Gastrointestinal: no abdominal pain Physical Exam Constitutional: well developed and well nourished; no acute distress and no altered mental status ENMT: external ear and nose normal, oropharynx normal Respiratory: no respiratory distress Auscultation: no diminished lung sounds, no crackles and no wheezes Cardiovascular: Rate/Rhythm: regular rate and regular rhythm Heart Sounds: normal S1 and normal S2 Vessels: posterior tibial pulses present and dorsalis pedis pulses present; no JVD Extremities: no edema (Resolved, left leg) Gastrointestinal (Abdomen): normal bowel sounds, soft, nontender, no hepatosplenomegaly Musculoskeletal: right BKA Psychiatric: A+Ox3, euthymic affect Results & Data Results & Data ([facility]) Vital Signs (Past 12 Hours) Vital Signs Temp Pulse Pulse Resp BP Pulse Ox 09/30/20 19:42 36.6 C 80 20 134/67 90 09/30/20 16:00 71 09/30/20 15:00 36.7 C 69 20 112/65 95 Laboratory Results Laboratory Results - last 24 hr 09/30/20 09/30/20 09/30/20 07:50 08:05 08:05 PT 13.2 H INR 1.3 H Sodium 139 Potassium 4.0 Chloride 102 Carbon Dioxide 28 Anion Gap 9.0 BUN 63 H Creatinine 3.93 H D Est Cr Clr Drug Dosing 22.4 Est GFR ( Amer) 16.4 Est GFR (Non-Af Amer) 14.1 BUN/Creatinine Ratio 16.0 Glucose 75 POC Glucose 83 Calcium 9.5 09/30/20 09/30/20 09/30/20 11:36 16:48 20:46 PT INR Sodium Potassium Chloride Carbon Dioxide Anion Gap BUN Creatinine Est Cr Clr Drug Dosing Est GFR ( Amer) Est GFR (Non-Af Amer) BUN/Creatinine Ratio Glucose POC Glucose 216 H 141 H 181 H Calcium PG Care Time/CCT Total # of Minutes Spent Total Time Spent with Patient: Total time spent is greater than 50% in coordination of care (as documented) at patient's floor/unit and/or counseling patient: Coding Level of Care Code 38172 Subseq Hosp Care Lvl 2 Diagnoses Acute on chronic systolic heart failure I50.23 Acute respiratory failure with hypoxia J96.01 Warfarin-induced coagulopathy D68.32; T45.515A Cough with hemoptysis R04.2 Bilateral interstitial pneumonia J84.9 Elevated troponin R77.8 Chronic kidney insufficiency N18.32 Chronic kidney disease stage: stage 3 (moderate) Chronic kidney disease stage 3 subtype: stage 3b (GFR 30-44) Nonischemic cardiomyopathy I42.8 Biventricular ICD (implantable cardioverter-defibrillator) in place Z95.810 Atrial fibrillation I48.91 Atrial fibrillation type: unspecified Hypertension I10 Hypertension type: essential hypertension Hypothyroidism E03.9 Hypothyroidism type: acquired Acute kidney injury N17.9 (1) Atrial fibrillation Atrial fibrillation type: unspecified Qualified Code(s): I48.91 - Unspecified atrial fibrillation (2) Hypothyroidism Hypothyroidism type: acquired Qualified Code(s): E03.9 - Hypothyroidism, unspecified (3) Chronic kidney insufficiency Chronic kidney disease stage: stage 3 (moderate) Chronic kidney disease stage 3 subtype: stage 3b (GFR 30-44) Qualified Code(s): N18.32 - Chronic kidney disease, stage 3b (4) Hypertension Hypertension type: essential hypertension Qualified Code(s): I10 - Essential (primary) hypertension
[2020-10-01] MEDS: LEVOTHYROXINE SODIUM 112 MCG TABLET PO SCH (05:33)
[2020-10-01 08:41] LABS: BUN Creatinine Ratio 17.1 (10-20); Calcium 9.1 mg/dl (8.5-10.1); Creatinine Clr Calc Pharmacy 24.3 ml/min; Est GFR (African American) 18.2; Est GFR (Non-African American) 15.7; Potassium 4.1 mmol/L (3.5-5.1)
[2020-10-01] MEDS: SIMVASTATIN 40 MG TAB PO SCH (08:52)
[2020-10-01] MEDS: FENOFIBRATE NANOCRYSTALLIZED 48 MG TABLET PO SCH (08:52)
[2020-10-01] MEDS: CHOLECALCIFEROL 1,000 UNITS 25 MCG TAB PO SCH ×2 (08:52→20:43)
[2020-10-01] MEDS: allopurinoL 300 MG TAB PO SCH (08:52)
[2020-10-01] MEDS: INSULIN ASPART 100 UNITS/ML 3 ML PEN SC SCH ×4 (08:53→20:43)
[2020-10-01] MEDS: METOPROLOL TARTRATE 50 MG TAB PO SCH ×2 (08:54→20:42)
[2020-10-01] MEDS: UMECLIDINIUM BROMIDE 62.5MCG/BLISTER 7 PUFFS/INHALER INH SCH (08:55)
[2020-10-01] MEDS: INSULIN HUMAN NPH SC SCH ×2 (08:55→18:18)
[2020-10-01] MEDS: hydrALAZINE TAB 50 MG TAB PO SCH ×2 (08:55→20:41)
[2020-10-01] MEDS: MUPIROCIN 2% OINT 22 GM TUBE SCH ×2 (08:56→20:41)
--- NOTE | 2020-10-01 15:53 | Hospitalist Progress Note ---
Date of Service October 01, 2020 Assessment & Plan (1) Acute on chronic systolic heart failure: Chest x-ray September 30 continues to show CHF. Continue parenteral Bumex diuresis. Creatinine down slightly from yesterday to 3.6. Will follow. repeat echo this admission with EF 45-50% - unchanged from prior echo. holding SANDRA in light of CKD and [place]. BMP qam. cont hearth healthy diet, daily weight, etc. (2) Acute respiratory failure with hypoxia: resolved. 2nd to acute/chronic systolic CHF along with probable bronchitis vs pneumonia 2nd to rhinovirus. o2 weaned off. (3) Warfarin-induced coagulopathy: INR >4 at presentation. now resolved. hemoptysis resolved. warfarin resumed 09/29/20. INR qam. (4) Cough with hemoptysis: Likely that coumadin use and supratherapeutic INR contributed to hemoptysis. Pulmonary edema and rhinovirus infection also likely contributed to hemoptysis. Hemoptysis resolved. H/H stable. (5) Bilateral interstitial pneumonia: Likely viral pneumonia 2nd rhinovirus. blood cultures negative. abx have been stopped. (6) Elevated troponin: Likely myocardial demand ischemia in setting of decompensated CHF, viral pneumonia/viral infection (rhinovirus), etc. (7) Chronic kidney insufficiency: Baseline Cr about 2.5 to 3 and baseline CrCl 30s. Mild superimposed [place]. BMP in am. HOLD ACEI. (8) Nonischemic cardiomyopathy: Patient with history of NICM s/p AICD placement in 2007 with conversion to Bi-ventricular AICD in 2012 Continue Metoprolol and Hydralazine. Continue IV diuretics . EF 45-50% on echo this admission. Hold SANDRA due to CKD and [place]. (9) Biventricular ICD (implantable cardioverter-defibrillator) in place: noted pacing on monitor (10) Atrial fibrillation: cont metoprolol paced on coumadin chronically; held due to supratherapeutic INR at admission but coumadin resumed 09/29/20. INR am. (11) Hypertension: Cont home meds but holding ACEI. BPs acceptable. (12) Hypothyroidism: TSH 4.5 on 08/23/20. Continue current Synthroid replacement therapy . (13) Acute kidney injury: 2nd diuresis. ACEI held. BMP qam. Disposition: Eventual discharge to home. Cont PT/OT Admission and Anticipated Discharge Date Admission Date: September 27, 2020 Subjective Alert. No complaints. Creatinine remains elevated at 3.6. INR 1.3. Continue Coumadin therapy. Continue Bumex diuresis. Monitor daily lab studies. Chest x-ray report from September 30 noted. He does have CHF with small pleural effusions. Review of Systems Review of Systems: Constitutional-no fever or chills ENT-no blurred vision, no double vision, no epistaxis, no sore throat Respiratory-no cough, no wheezing. Shortness of breath with exertion Cardiac-no palpitations, no syncope. Mechanical left anterior chest wall pain GI-no nausea, vomiting, diarrhea, melena, hematochezia -no urinary retention, no urinary incontinence, no dysuria, no hematuria Musculoskeletal-no joint pain, no muscle tenderness Skin-no bruising, no rashes, no pruritus Neuro-no isolated weakness, no paresthesia, no weakness Psych-no depression, no anxiety Physical Exam Physical Exam: General-alert and oriented x3, no fevers, no chills HEENT-head atraumatic and normocephalic, TMs intact bilaterally, pupils equal and reactive to light, extraocular muscles intact Neck-no lymphadenopathy or thyromegaly, trachea midline Chest-faint basilar bilateral inspiratory rales. No dullness to percussion. No wheezing Cardiac-irregular rate and rhythm, normal S1 and S2, no murmurs Abdomen-normal bowel sounds, nontender, no hepatosplenomegaly Extremities-no cyanosis, clubbing, or edema Neuro-cranial nerves II through XII intact, motor and sensory function within normal limits, strength symmetrical 5/5, no focal deficits Psych-normal affect, normal mood Results & Data Results & Data ([facility]) Vital Signs (Past 12 Hours) Vital Signs Temp Pulse Pulse Resp BP BP Pulse Ox 10/01/20 15:42 84 10/01/20 11:00 36.3 C L 78 20 138/74 93 10/01/20 08:00 84 10/01/20 07:00 36.6 C 77 20 129/77 96 10/01/20 05:15 84 10/01/20 04:00 36.7 C 70 18 120/69 94 Laboratory Results 09/29/20 07:15 10/01/20 07:44 PG Care Time/CCT Total # of Minutes Spent Total Time Spent with Patient: Total time spent is greater than 50% in coordination of care (as documented) at patient's floor/unit and/or counseling patient: Coding Level of Care Code 20039 Subseq Hosp Care Lvl 3 Diagnoses Acute on chronic systolic heart failure I50.23 Acute respiratory failure with hypoxia J96.01 Warfarin-induced coagulopathy D68.32; T45.515A Cough with hemoptysis R04.2 Bilateral interstitial pneumonia J84.9 Elevated troponin R77.8 Chronic kidney insufficiency N18.32 Chronic kidney disease stage: stage 3 (moderate) Chronic kidney disease stage 3 subtype: stage 3b (GFR 30-44) Nonischemic cardiomyopathy I42.8 Biventricular ICD (implantable cardioverter-defibrillator) in place Z95.810 Atrial fibrillation I48.91 Atrial fibrillation type: unspecified Hypertension I10 Hypertension type: essential hypertension Hypothyroidism E03.9 Hypothyroidism type: acquired Acute kidney injury N17.9 (1) Chronic kidney insufficiency Chronic kidney disease stage: stage 3 (moderate) Chronic kidney disease stage 3 subtype: stage 3b (GFR 30-44) Qualified Code(s): N18.32 - Chronic kidney disease, stage 3b (2) Atrial fibrillation Atrial fibrillation type: unspecified Qualified Code(s): I48.91 - Unspecified atrial fibrillation (3) Hypertension Hypertension type: essential hypertension Qualified Code(s): I10 - Essential (primary) hypertension (4) Hypothyroidism Hypothyroidism type: acquired Qualified Code(s): E03.9 - Hypothyroidism, unspecified
[2020-10-01] MEDS: WARFARIN SOD 10 MG TAB PO SCH (18:23)
[2020-10-01] MEDS: BUMETANIDE 2 MG in SYRINGE 0 ML IV SCH (18:23)
[2020-10-02] MEDS: LEVOTHYROXINE SODIUM 112 MCG TABLET PO SCH (06:21)
[2020-10-02] MEDS: BUMETANIDE 2 MG in SYRINGE 0 ML IV SCH (08:32)
[2020-10-02] MEDS: METOPROLOL TARTRATE 50 MG TAB PO SCH (08:33)
[2020-10-02] MEDS: FENOFIBRATE NANOCRYSTALLIZED 48 MG TABLET PO SCH (08:33)
[2020-10-02] MEDS: CHOLECALCIFEROL 1,000 UNITS 25 MCG TAB PO SCH (08:33)
[2020-10-02] MEDS: allopurinoL 300 MG TAB PO SCH (08:33)
[2020-10-02] MEDS: SIMVASTATIN 40 MG TAB PO SCH (08:33)
[2020-10-02] MEDS: INSULIN HUMAN NPH SC SCH (08:34)
[2020-10-02] MEDS: hydrALAZINE TAB 50 MG TAB PO SCH (08:34)
[2020-10-02] MEDS: INSULIN ASPART 100 UNITS/ML 3 ML PEN SC SCH ×2 (08:35→12:33)
[2020-10-02] MEDS: MUPIROCIN 2% OINT 22 GM TUBE SCH (08:36)
[2020-10-02] MEDS: UMECLIDINIUM BROMIDE 62.5MCG/BLISTER 7 PUFFS/INHALER INH SCH (08:36)
[2020-10-02 09:47] LABS: INR 1.6 (0.9-1.1); Prothrombin Time 16.2 Seconds (9.0-12.0)
[2020-10-02 10:02] LABS: BUN Creatinine Ratio 16.6 (10-20); Calcium 9.4 mg/dl (8.5-10.1); Creatinine Clr Calc Pharmacy 21.4 ml/min; Est GFR (African American) 15.6; Est GFR (Non-African American) 13.4; Potassium 4.1 mmol/L (3.5-5.1)
--- NOTE | 2020-10-02 11:00 | Discharge Summary ---
Date of Service October 02, 2020 Admission HPI Per Admitting Provider Elfego Warren is a 74yo C male with history of atrial fibrillation on Coumadin anticoagulation, CAD, CHF, CKD, DM, HTN presenting with 1-2 weeks of cough, worsening SOB and osman hemoptysis over the last 3-4 days. Patient reports coughing up bright red blood mixed with sputum. No nosebleed or dental complaints. He denies CP, fever, chills, nausea, vomiting, diarrhea or constipation. Covid-19 testing performed in ER NEGATIVE Patient hypoxic in ER to 86% on RA ER Course: Azithromycin, Ceftriaxone Principal Diagnosis Acute on chronic systolic CHF, viral pneumonia, coumadin toxicity, acute on CKD Discharge Exam Constitutional WD/WN, vitals as above Eyes PERRL, conjunctivae normal, anicteric sclerae ENMT external ear and nose normal, oropharynx normal Neck trachea midline, no thyromegaly Respiratory normal respiratory effort, lungs clear to auscultation Cardiovascular Rate/Rhythm: + irregularly irregular Heart Sounds: normal S1 and normal S2 Gastrointestinal (Abdomen) normal bowel sounds, soft, nontender, no hepatosplenomegaly Skin no rashes, warm and dry Neurologic PERRL, EOMI, accommodation nl, no face palsy, no dysarthria Psychiatric A+Ox3, euthymic affect Discharge Data Allergies Allergy/AdvReac Type Severity Reaction Status Date / Time No Known Allergies Allergy Verified 09/27/20 00:49 Consultations 09/27/20 00:29 ED Decision to Admit Stat 09/27/20 03:12 Consult Pulmonology Routine Ordered Studies 09/26/20 20:55 CT chest wo con Urgent Diabetes Follow up Diabetes Follow-up Needed for HgbA1c >9% Hospital Course (1) Acute on chronic systolic heart failure: Chest x-ray September 30 continues to show CHF. Continue parenteral Bumex diuresis. Creatinine down slightly from yesterday to 3.6. Will follow. repeat echo this admission with EF 45-50% - unchanged from prior echo. discontinued ACEI in light of CKD and [place]. BMP qam. cont hearth healthy diet, daily weight, etc. (2) Acute respiratory failure with hypoxia: resolved. 2nd to acute/chronic systolic CHF along with probable bronchitis vs pneumonia 2nd to rhinovirus. o2 weaned off. (3) Warfarin-induced coagulopathy: INR >4 at presentation. now resolved. hemoptysis resolved. warfarin resumed 09/29/20. INR qam. (4) Cough with hemoptysis: Likely that coumadin use and supratherapeutic INR contributed to hemoptysis. Pulmonary edema and rhinovirus infection also likely contributed to hemoptysis. Hemoptysis resolved. H/H stable. (5) Bilateral interstitial pneumonia: Likely viral pneumonia 2nd rhinovirus. blood cultures negative. abx have been stopped. (6) Elevated troponin: Likely myocardial demand ischemia in setting of decompensated CHF, viral pneumonia/viral infection (rhinovirus), etc. (7) Chronic kidney insufficiency: Baseline Cr about 2.5 to 3 and baseline CrCl 30s. Mild superimposed [place]. BMP in am. Discontinue ACEI. (8) Nonischemic cardiomyopathy: Patient with history of NICM s/p AICD placement in 2007 with conversion to Bi-ventricular AICD in 2012 Continue Metoprolol and Hydralazine. Continue IV diuretics . EF 45-50% on echo this admission. Discontinued ACEI due to CKD and [place]. (9) Biventricular ICD (implantable cardioverter-defibrillator) in place: noted pacing on monitor (10) Atrial fibrillation: cont metoprolol paced on coumadin chronically; held due to supratherapeutic INR at admission but coumadin resumed 09/29/20. INR am. (11) Hypertension: Cont home meds but holding ACEI. BPs acceptable. (12) Hypothyroidism: TSH 4.5 on 08/23/20. Continue current Synthroid replacement therapy . (13) Acute kidney injury: 2nd diuresis. ACEI held. BMP qam. Disposition: home today. O2 has been weaned off. ACEI discontinued. Total Time Total Time Spent Total Time Spent (In Minutes): 35 minutes Total Time Includes: Examination of the Patient, Discharge Planning, Medication Reconciliation, Communication With Other Providers and Other Discharge Plan Discharge Items Reason For Visit: HEMOPTYSIS Medications and DC Order Prescriptions: No Action simvastatin 40 mg tablet 40 mg PO QAM RF: 0 metoprolol tartrate 50 mg tablet 50 mg PO BID RF: 0 allopurinol 300 mg tablet 300 mg PO QAM RF: 0 hydralazine 50 mg tablet 50 mg PO BID RF: 0 levothyroxine 112 mcg tablet 112 mcg PO QAM RF: 0 insulin asp prt-insulin aspart [Novolog Mix 70-30 U-100 Insuln] 100 unit/mL (70-30) solution 100 unit subcut QAM RF: 0 fenofibrate nanocrystallized 48 mg tablet 48 mg PO QAM RF: 0 insulin asp prt-insulin aspart [Novolog Mix 70-30 U-100 Insuln] 100 unit/mL (70-30) solution 90 unit subcut QPM RF: 0 warfarin 5 mg tablet 5 mg PO 3XWK RF: 0 cholecalciferol (vitamin D3) [Vitamin D3] 1,000 unit Capsule 1,000 unit PO BID RF: 0 Fish Oil 360 mg-144 mg- 216 mg-1,200 mg Capsule,Delayed Release(Dr/Ec) 1 cap PO QAM RF: 0 lisinopril 5 mg tablet 5 mg PO QAM RF: 0 furosemide 40 mg tablet 40 mg PO QAM RF: 0 warfarin 5 mg tablet 10 mg PO 4XWK RF: 0 Admission Data Admit Date/Time: 09/27/20 01:31 Attending Provider: Irvin Juarez Admit Provider: Nanci Napoles Primary Care Provider: Aaron Keller Other Providers: Nanci Napoles ; Gabby Moreno Coding Level of Care Code D/C Day Management >30 mins Diagnoses Acute on chronic systolic heart failure I50.23 Acute respiratory failure with hypoxia J96.01 Warfarin-induced coagulopathy D68.32; T45.515A Cough with hemoptysis R04.2 Bilateral interstitial pneumonia J84.9 Elevated troponin R77.8 Chronic kidney insufficiency N18.32 Chronic kidney disease stage: stage 3 (moderate) Chronic kidney disease stage 3 subtype: stage 3b (GFR 30-44) Nonischemic cardiomyopathy I42.8 Biventricular ICD (implantable cardioverter-defibrillator) in place Z95.810 Atrial fibrillation I48.91 Atrial fibrillation type: unspecified Hypertension I10 Hypertension type: essential hypertension Hypothyroidism E03.9 Hypothyroidism type: acquired Acute kidney injury N17.9
== END 2020-10-02 12:57 | disposition home or self-care (01) | DRG 193 ==
LOC: ED 20:15 → SUATTDRO 09-27 01:31 → 2W 09-27 01:31

== ENCOUNTER 2021-08-01 11:06 | Inpatient (IN) ==
[2021-08-01 11:39] LABS: Basophils # (auto) 0.02 K/uL (0-0.2); Basophils % (auto) 0.1 %; Eosinophils # (auto) 0.09 K/uL (0-0.5); Eosinophils % (auto) 0.6 %; Hematocrit (blood only) 35.7 % (42-52); Hemoglobin 11.4 g/dL (14.0-18.0); Immature Granulocytes # (auto) 0.04 K/uL (0.00-0.02); Immature Granulocytes % (auto) 0.3 %; Lymphocytes # (auto) 0.64 K/uL (1.2-3.4); Lymphocytes % (auto) 4.6 %; Mean Corpuscular Hemoglobin 29.8 pg (25-34); Mean Corpuscular Hgb Conc 31.9 g/dL (32-36); Mean Corpuscular Volume 93.5 fL (80-100); Mean Platelet Volume 11.1 fL (7.4-10.4); Monocytes % (auto) 9.3 %; Neutrophils # (auto) 11.92 K/uL (1.4-6.5); Neutrophils % (auto) 85.1 %; Platelet Count 254 K/uL (130-400); RDW Coefficient of Variation 15.2 % (11.5-14.5); RDW Standard Deviation 51.6 fL (36.4-46.3); Red Blood Count 3.82 M/uL (4.7-6.1); White Blood Count 14.01 K/uL (4.8-10.8)
[2021-08-01 11:51] LABS: INR 1.5 (0.9-1.1); Partial Thromboplastin Ratio 1.3; Prothrombin Time 14.6 Seconds (9.0-12.0)
--- NOTE | 2021-08-01 11:55 | XRay Report ---
XR chest 1V portable HISTORY: Shortness of breath. COMPARISON: Chest 09/30/2020. FINDINGS: No pneumothorax. Trace bilateral pleural effusions. The cardiac silhouette remains mildly e nlarged. The left-sided pacemaker/defibrillator. Diffuse interstitial thickening and hazy bilateral a irspace opacities have slightly progressed. IMPRESSION: Slight progression of the diffuse interstitial thickening and hazy bilateral airspace opacities. This could represent pulmonary edema or a viral pneumonia. ACT 112: Negative or not required by law. Electronically signed by: Boubacar Bryant M.D. 08/01/2021 11:53 AM
[2021-08-01 11:56] LABS: Alanine Aminotransferase 20 U/L (12-78); Albumin Level 3.4 gm/dl (3.4-5.0); Aspartate Aminotransferase 21 U/L (15-37); BUN Creatinine Ratio 13.5 (10-20); Blood Urea Nitrogen 42 mg/dl (7-18); Calcium 9.5 mg/dl (8.5-10.1); Carbon Dioxide 25 mmol/L (21-32); Chloride 107 mmol/L (98-107); Est GFR (African American) 21.3 ml/min; Est GFR (Non-African American) 18.4 ml/min; Glucose 223 mg/dl (70-99); Magnesium 2.2 mg/dl (1.8-2.4); Potassium 4.7 mmol/L (3.5-5.1); Sodium 140 mmol/L (136-145)
[2021-08-01 12:06] LABS: Albumin Globulin Ratio 0.7 (0.9-2); Alkaline Phosphatase 66 U/L (45-117); Bilirubin,Total 0.8 mg/dl (0.2-1); Globulin 4.6 gm/dl (2.5-4.0); Troponin I 0.214 ng/ml (0-0.045)
[2021-08-01] MEDS ORDERED: FUROSEMIDE 40 MG/4 ML VIAL IV STA (12:22)
--- NOTE | 2021-08-01 12:27 | Emergency Department Note ---
History of Present Illness General Chief complaint: Shortness of Breath/Dyspnea Stated complaint: CHEST PAIN, SOB Time Seen by Provider: 08/01/21 12:03 History of Present Illness 75-year-old male presents to the ED with a chief complaint of shortness of breath. The patient had cataract surgery this morning. Following cataract surgery, they were having difficulty keeping the patient's oxygen saturation normal. He was eventually discharged home but had shortness of breath on the way home. The patient was brought here for evaluation by EMS. Initial oxygen saturations were 60% on room air for EMS. He does not use home oxygen. He was 68% on room air here. The patient does have a history of atrial fibrillation. He is chronically on warfarin. He has not taken it for the past couple of days for his cataract surgery. He also has a history of CHF and is on Lasix. He reports that he had a negative Covid test yesterday for surgery. The patient does report a cough that is mostly chronic but today he has been coughing up some blood-tinged sputum. He states that he also has been experiencing dyspnea on exertion and his shortness of breath seems to be worse with laying flat. Denies recent illness. Home Medications Medication Instructions Recorded Confirmed Type allopurinol 300 mg tablet 300 mg PO QAM 04/22/19 08/01/21 History fenofibrate nanocrystallized 48 mg 48 mg PO QAM 04/22/19 08/01/21 History tablet hydralazine 50 mg tablet 50 mg PO BID 04/22/19 08/01/21 History insulin aspar prt-insulin aspart 90 unit SUBCUT QPM 04/22/19 08/01/21 History 100 unit/mL (70-30) subcutaneous soln (Novolog Mix 70-30 U-100 Insuln) insulin aspar prt-insulin aspart 100 unit SUBCUT QAM 04/22/19 08/01/21 History 100 unit/mL (70-30) subcutaneous soln (Novolog Mix 70-30 U-100 Insuln) levothyroxine 112 mcg tablet 112 mcg PO QAM 04/22/19 08/01/21 History metoprolol tartrate 50 mg tablet 50 mg PO BID 04/22/19 08/01/21 History simvastatin 40 mg tablet 40 mg PO QAM 04/22/19 08/01/21 History cholecalciferol (vitamin D3) 25 1,000 unit PO QAM 05/31/19 08/01/21 History mcg (1,000 unit) capsule (Vitamin D3) omega-3 360 mg-dha 144 mg-epa 216 1 cap PO QAM 05/31/19 08/01/21 History mg-fish oil 1,200 mg capsule,del rel (Fish Oil) furosemide 40 mg tablet 40 mg PO QAM tab 05/15/21 08/01/21 History warfarin 1 mg tablet 2 mg PO DAILY tab 05/15/21 08/01/21 History warfarin 5 mg tablet 5 mg PO DAILY tab 05/15/21 08/01/21 History ascorbic acid (vitamin C) 500 mg 500 mg PO DAILY 08/01/21 08/01/21 History tablet (Vitamin C) Allergies Allergy/AdvReac Type Severity Reaction Status Date / Time No Known Allergies Allergy Verified 08/01/21 06:39 Past Med/Surg History Medical History Atrial fibrillation 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 Bilateral interstitial pneumonia hx CAD (coronary artery disease) Cardiac defibrillator in place follows with Dr Blakely ([facility]) CHF (congestive heart failure) CKD (chronic kidney disease) stage 4, GFR 15-29 ml/min Heart disease Hx of colonic polyps Hyperlipidemia Hypertension Hypothyroidism ICD (implantable cardioverter-defibrillator) battery depletion Pt with BiV ICD at [facility]; for a generator change; discussed the procedure and potential risks with the patient which include but not limited to , arrhythmia, stroke, heart attack, bleeding and infection. consent obtained LBBB (left bundle branch block) Myocardial Infarction (~2007) reason for the cardio/defib. 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 and converted to a BiV in 02/2013 with recent generator exchange 04/19/19 History of colonoscopy History of left heart catheterization no stent Family History Father Stroke Mother Diabetes Social History (Reviewed 08/01/21 @ 12:23 by MILI Doll Smoking Status: Former smoker Tobacco Type: Cigarettes Cigarettes Per Day: 1984; Second Hand Exposure: No; Hx Alcohol Use: No Hx Substance Use: No Preferred Language: Armenian Communication Ability: Effective Visual Impairment: Limited Hearing Ability: Normal General Internist And Physician Leader Required: No Beliefs That Will Affect Care: None marital status: Current Living Situation: Alone Current Living Situation Comment: lives in house alone current occupational status: retired How many Children do You have: 2 How many Children do You have Comment: family fairly local and able to help with care Feels Safe at Home: Yes Diet Comment: stated he "watches sweet", but it's difficult Assistive Devices: Denture - Upper, Denture - Lower and Prosthesis Review of Systems A total of 10 systems reviewed and were otherwise negative Physical Exam Vital Signs Vital Signs - 24 hr 08/01/21 11:19 08/01/21 11:24 08/01/21 11:26 Temperature 37.2 C Temperature Source Oral Pulse Rate 111 H 105 H Pulse Rhythm Regular Regular Pulse Strength Normal Respiratory Rate 28 H Respiratory Effort / Characteristics Non-Labored Spontaneous Spontaneous Labored Respiratory Depth Normal Normal Respiratory Pattern Regular Tachypnea Blood Pressure 129/82 Blood Pressure Mean 97 Blood Pressure Position Sitting Pulse Oximetry 68 L 68 L 94 Oxygen Delivery Method Room Air Oxymask Oxymask Oxygen Flow Rate 0 4 Sepsis Recent Fever Within 48 Hours No Sepsis New/Unexplained Change in Mental Status No Sepsis Action Taken by Nursing Physician Notified Oxygen Flow Rate - Titration 4 Pulse Oximetry Post Tiitration 94 CONSTITUTIONAL/VITAL SIGNS: Reviewed / noted above. GENERAL: Non-toxic in appearance. INTEGUMENTARY: Warm, dry, and [place]. HEAD: Normocephalic. EYES: without scleral icterus or trauma. ENT/OROPHARYNX: clear and moist. LYMPHADENOPATHY/NECK: Is supple without lymphadenopathy or meningismus. RESPIRATORY: Slightly diminished with basilar crackles to auscultation bilaterally. No increased work of breathing. CARDIOVASCULAR: Regular rate and rhythm. GI/ABDOMEN: Soft and nontender. No organomegaly or pulsatile mass. EXTREMITIES: Warm and well perfused. Right BKA. Left pedal edema. BACK: No CVA tenderness. NEUROLOGICAL: Intact without focal deficits. PSYCHIATRIC: normal affect. MUSCULOSKELETAL: Normally developed with good muscle tone. TRIAGE NURSING DOCUMENTATION REVIEWED. Medical Decision Making Differential Diagnosis The differential was considered includes acute myocardial infarction, acute coronary syndrome, myocarditis, pericarditis, pericardial effusions /tamponad, esophageal perforation, pulmonary embolism, pneumonia, pneumothorax, cardiomyopathy, congestive heart, anemia , COPD/asthma exacerbation. Medical Records Attestation: I reviewed the patient's medical records. Home Medications Current Medication List: was personally reviewed by me Laboratory Data Attestation: I reviewed the patient's lab results. Result diagrams: 08/01/21 11:00 08/01/21 11:00 Lab Results 08/01/21 08/01/21 08/01/21 Range/Units 11:00 11:00 11:00 WBC 14.01 H (4.8-10.8) K/uL RBC 3.82 L (4.7-6.1) M/uL Hgb 11.4 L (14.0-18.0) g/dL Hct 35.7 L (42-52) % MCV 93.5 (80-100) fL MCH 29.8 (25-34) pg MCHC 31.9 L (32-36) g/dL RDW Std Deviation 51.6 H (36.4-46.3) fL RDW Coeff of Nicolasa 15.2 H (11.5-14.5) % Plt Count 254 (130-400) K/uL MPV 11.1 H (7.4-10.4) fL Immature Gran % (Auto) 0.3 % Neut % (Auto) 85.1 % Lymph % (Auto) 4.6 % [place] % (Auto) 9.3 % Eos % (Auto) 0.6 % Baso % (Auto) 0.1 % Neut # (Auto) 11.92 H (1.4-6.5) K/uL Lymph # (Auto) 0.64 L (1.2-3.4) K/uL [place] # (Auto) 1.30 H (0.11-0.59) K/uL Eos # (Auto) 0.09 (0-0.5) K/uL Baso # (Auto) 0.02 (0-0.2) K/uL Immature Gran # (Auto) 0.04 H (0.00-0.02) K/uL PT 14.6 H (9.0-12.0) Seconds INR 1.5 H (0.9-1.1) APTT 33.0 H (21.0-31.0) Seconds PTT Ratio 1.3 Sodium 140 (136-145) mmol/L Potassium 4.7 (3.5-5.1) mmol/L Chloride 107 (98-107) mmol/L Carbon Dioxide 25 (21-32) mmol/L Anion Gap 8.0 (3-11) BUN 42 H (7-18) mg/dl Creatinine 3.14 H (0.6-1.4) mg/dl Est Cr Clr Drug Dosing Not Reportable Est GFR ( Amer) 21.3 ml/min Est GFR (Non-Af Amer) 18.4 ml/min BUN/Creatinine Ratio 13.5 (10-20) Glucose 223 H (70-99) mg/dl Calcium 9.5 (8.5-10.1) mg/dl Magnesium 2.2 (1.8-2.4) mg/dl Total Bilirubin 0.8 (0.2-1) mg/dl AST 21 (15-37) U/L ALT 20 (12-78) U/L Alkaline Phosphatase 66 (45-117) U/L Troponin I 0.214 H* (0-0.045) ng/ml Total Protein 8.0 (6.4-8.2) gm/dl Albumin 3.4 (3.4-5.0) gm/dl Globulin 4.6 H (2.5-4.0) gm/dl Albumin/Globulin Ratio 0.7 L (0.9-2) Imaging Data Radiologist's Impression: Chest X-Ray 08/01/21 11:26 XR chest 1V portable HISTORY: Shortness of breath. COMPARISON: Chest 09/30/2020. FINDINGS: No pneumothorax. Trace bilateral pleural effusions. The cardiac silhouette remains mildly enlarged. The left-sided pacemaker/defibrillator. Diffuse interstitial thickening and hazy bilateral airspace opacities have slightly progressed. IMPRESSION: Slight progression of the diffuse interstitial thickening and hazy bilateral airspace opacities. This could represent pulmonary edema or a viral pneumonia. ACT 112: Negative or not required by law. Electronically signed by: Boubacar Bryant M.D. 08/01/2021 11:53 AM ECG Data Attestation: I personally reviewed and interpreted this ECG as follows: Additional Comments: Twelve-lead EKG: Per my interpretation there is a paced ventricular rhythm at a rate of 108. MDM Narrative Patient presents with what sounds like an acute exacerbation of his shortness of breath with coughing up some blood-tinged sputum. He had cataract surgery this morning and was reportedly hypoxic following the surgery. They thought he was fluid overloaded. The patient chest x-ray today does show some bilateral haziness/airspace opacities that could be related to pulmonary edema versus a viral pneumonia. Clinically has not had any symptoms of viral pneumonia. His symptoms are likely related to pulmonary edema given his symptoms. He was hypoxic when he arrived with 68% saturations on room air. He does not use home oxygen. White blood cell count was 14. Hemoglobin is 11.4. INR is 1.5. He has not taken his Coumadin for the past few days because of his cataract surgery. His creatinine is 3.14. This is baseline for him. Troponin is elevated at 0.214. EKG shows a paced ventricular rhythm. The patient was treated with IV Lasix. He is saturating well on supplemental oxygen. He will require further inpatient evaluation and care. Impression & Plan Hypoxia, Pulmonary edema Discharge Plan Visit Data Chief Complaint: Shortness of Breath/Dyspnea Stated Complaint: CHEST PAIN, SOB ED Provider: Alfonso Novak Discharge Problem: Hypoxia, Pulmonary edema Patient Disposition: Being Evaluated by Hospitalist Forms Stand Alone Forms: My [facility] Prescriptions Prescriptions: No Action warfarin 1 mg tablet 2 mg PO DAILY RF: 0 simvastatin 40 mg tablet 40 mg PO QAM RF: 0 metoprolol tartrate 50 mg tablet 50 mg PO BID RF: 0 allopurinol 300 mg tablet 300 mg PO QAM RF: 0 hydralazine 50 mg tablet 50 mg PO BID RF: 0 levothyroxine 112 mcg tablet 112 mcg PO QAM RF: 0 insulin asp prt-insulin aspart [Novolog Mix 70-30 U-100 Insuln] 100 unit/mL (70-30) solution 100 unit subcut QAM RF: 0 fenofibrate nanocrystallized 48 mg tablet 48 mg PO QAM RF: 0 insulin asp prt-insulin aspart [Novolog Mix 70-30 U-100 Insuln] 100 unit/mL (70-30) solution 90 unit subcut QPM RF: 0 cholecalciferol (vitamin D3) [Vitamin D3] 1,000 unit Capsule 1,000 unit PO QAM RF: 0 Fish Oil 360 mg-144 mg- 216 mg-1,200 mg Capsule,Delayed Release(Dr/Ec) 1 cap PO QAM RF: 0 warfarin 5 mg tablet 5 mg PO DAILY RF: 0 furosemide 40 mg tablet 40 mg PO QAM RF: 0 ascorbic acid (vitamin C) [Vitamin C] 500 mg Tablet 500 mg PO DAILY RF: 0 Referrals Referrals: Aaron Keller MD [Primary Care Provider] -
[2021-08-01] MEDS ORDERED: METOPROLOL TARTRATE 50 MG TAB PO STA (13:39)
[2021-08-01] MEDS ORDERED: hydrALAZINE TAB 50 MG TAB PO STA (13:39)
--- NOTE | 2021-08-01 13:51 | History & Physical Report ---
Date of Service August 01, 2021 Assessment & Plan (1) CHF (congestive heart failure): Plan: Acute on chronic heart failure- HFrEF - patient endorses symptoms worsening over the past 1-2 months - crackles on exam and wet productive cough - Lasix 40mg IV now- then continue 40mg IV q8 x2 - Valencia catheter placed for SUMMER as well as his dyspnea with movement - Continue metoprolol for now- await ECHO - ECHO evaluate valve function and WM - BNP 3549 - BiPAP if needed for support (2) Hypoxia: Plan: CHF vs. infectious vs. other - Patient feels breathing has improved since coming to EMD - Oxygen support for SPO2 >92% - NC/HFNC/BiPAP - Albuterol PRN - Although WBC elevated- he endorses no fever, sputum at this time not consistent with PNA - PCT 0.12- follow clinically with repeat labs in AM- If clinical picture becomes consistent with infectious etiology add ABX coverage/biofire (3) Elevated troponin: Plan: Likely type II secondary to hypoxia and volume stress - Trend ECG and Troponin I - if worsens would add on heparin and consult cardiology with known CAD - No CP prior to or now during admission (4) CKD (chronic kidney disease) stage 4, GFR 15-29 ml/min: Plan: Chronic- 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 at current - follow with diuresing (5) Biventricular ICD (implantable cardioverter-defibrillator) in place: Plan: BiV- DDDR (afib underlying) Rate 60BMP; Upper tracking 120; Upper AT 170, VF: >200 - Appropriate fire and capture on ECG (6) Atrial fibrillation: Plan: As above - continue metoprolol - Start back on Warfarin 7mg daily- INR daily (7) Hypertension: Plan: Continue Hydralazine and Metoprolol - adjustment may be needed following evaluation and diuresing - Morning medications given in the EMD prior to admission (8) Chronic venous insufficiency: Plan: Follows with woundcare- well healed ulcerations to left leg- patient is phyllis compression stocking History of Present Illness Chief Complaint: SOB Primary Care Provider: Aaron Keller MD 75 YOM with past medical history of : CAD, [place] 2007, HFrEF, BIV defibr illator/pacer, DM II (on insulin), HLD, CKD IV, Hypothyroidism, chronically anticoagulated with Coumadin for Afib, Aortic Stenosis. Patient comes into the EMD today via EMS for dyspnea and hypoxia. Patient was discharged earlier from PACU following cataract surgery of his left eye. From review of record, this shows managed with NC with SPO2 92% and 2mg of Versed. Patient also endorses he has not taken any of his medications today, he is on Warfarin for his afib history and INR is 1.5 today as he held this 3 days for his cataract surgery. Patient states that he has been getting short of breath over the past month with inability to lie flat as well as needing to take frequent rests while doing things around the house. The patient is mostly dependant with wheel chair secondary to right lower extremity amputation with prosthesis. Patient endorses that he does not follow up with cardiology frequently or nephrology. He has noticed that he has been having decrease response with his diuretics- "some days it is good and others not so much". Patient also endorses increase in cough and sputum production, he previously smoked but quit 35 years ago. Sputum is normally thick white with occasional yellowness to it over the past month. Today it is thinner and light pink tinged. Has cristina therapeutic on his Warfarin since May 13- he normally takes 7mg per day. In the EMD the patient was placed on Oxymask with SPO2 93-98%, given 40mg IV lasix, had a CXR done and routine labs. CXR is consistent with his CXR that he had in 2010 with pulmonary edema, WBC at 14, and troponin at 0.214 Patient will be admitted to PCU to continue to diurese, follow pulmonary status. Continue to trend out Troponin and ECG and obtain ECHO. Currently symptoms consistent with acute HF exacerbation secondary to pulmonary edema. Does not endorse he follows a low sodium diet, but does endorse medical compliance, although he has noticed symptoms getting worse as above. COVID test NEGATIVE on admission. Allergies Allergy/AdvReac Type Severity Reaction Status Date / Time No Known Allergies Allergy Verified 08/01/21 06:39 Home Medications Medication Instructions Recorded Confirmed Type allopurinol 300 mg tablet 300 mg PO QAM 04/22/19 08/01/21 History fenofibrate nanocrystallized 48 mg 48 mg PO QAM 04/22/19 08/01/21 History tablet hydralazine 50 mg tablet 50 mg PO BID 04/22/19 08/01/21 History insulin aspar prt-insulin aspart 90 unit SUBCUT QPM 04/22/19 08/01/21 History 100 unit/mL (70-30) subcutaneous soln (Novolog Mix 70-30 U-100 Insuln) insulin aspar prt-insulin aspart 100 unit SUBCUT QAM 04/22/19 08/01/21 History 100 unit/mL (70-30) subcutaneous soln (Novolog Mix 70-30 U-100 Insuln) levothyroxine 112 mcg tablet 112 mcg PO QAM 04/22/19 08/01/21 History metoprolol tartrate 50 mg tablet 50 mg PO BID 04/22/19 08/01/21 History simvastatin 40 mg tablet 40 mg PO QAM 04/22/19 08/01/21 History cholecalciferol (vitamin D3) 25 1,000 unit PO QAM 05/31/19 08/01/21 History mcg (1,000 unit) capsule (Vitamin D3) omega-3 360 mg-dha 144 mg-epa 216 1 cap PO QAM 05/31/19 08/01/21 History mg-fish oil 1,200 mg capsule,del rel (Fish Oil) furosemide 40 mg tablet 40 mg PO QAM tab 05/15/21 08/01/21 History warfarin 1 mg tablet 2 mg PO DAILY tab 05/15/21 08/01/21 History warfarin 5 mg tablet 5 mg PO DAILY tab 05/15/21 08/01/21 History ascorbic acid (vitamin C) 500 mg 500 mg PO DAILY 08/01/21 08/01/21 History tablet (Vitamin C) difluprednate 0.05 % eye drops 1 drp OPL BID 08/01/21 08/01/21 History (Durezol) gatifloxacin 0.5 % eye drops 1 drp OPL TID 08/01/21 08/01/21 History Past Med/Surg History Medical History (Updated 08/02/21 @ 13:10 by Dante Simmons MD) Atrial fibrillation 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 Bilateral interstitial pneumonia hx CAD (coronary artery disease) Cardiac defibrillator in place [facility] CHF (congestive heart failure) CKD (chronic kidney disease) stage 4, GFR 15-29 ml/min Heart disease Hx of colonic polyps Hyperlipidemia Hypertension Hypothyroidism ICD (implantable cardioverter-defibrillator) battery depletion Pt with BiV ICD at [facility]; for a generator change; discussed the procedure and potential risks with the patient which include but not limited to , arrhythmia, stroke, heart attack, bleeding and infection. consent obtained LBBB (left bundle branch block) Myocardial Infarction (~2007) reason for the cardio/defib. 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 and converted to a BiV in 02/2013 with recent generator exchange 04/19/19 History of colonoscopy History of left heart catheterization No obstructive coronary disease, 2007 Family History Father Stroke Mother Diabetes Social History Smoking Status: Former smoker Tobacco Type: Cigarettes Cigarettes Per Day: 1984; Second Hand Exposure: No; Do You Dip or Chew Tobacco: No; Tobacco Cessation Education Requested by Patient: No Hx Alcohol Use: No Hx Substance Use: No Preferred Language: Guamanian Communication Ability: Effective Visual Impairment: Limited Hearing Ability: Normal 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 Beliefs That Will Affect Care: None marital status: Current Living Situation: Alone Current Living Situation Comment: lives in house alone current occupational status: retired How many Children do You have: 2 How many Children do You have Comment: family fairly local and able to help with care Other Information That Helps Us Care for You: No Feels Safe at Home: Yes Safety Concerns: Feels Safe At This Time Diet Comment: stated he "watches sweet", but it's difficult Assistive Devices: Oxygen - Continuous and Prosthesis Assistive Devices Comment: Uses a wheelchair to get around the house, uses a cane while outside Review of Systems Review of Systems: REVIEW OF SYSTEMS: Constitutional: No fever, sweats or chills Eyes: No diplopia, no worsening or blurred vision ENT: normal hearing, no trouble swallowing Respiratory: (+) cough, sputum, dyspnea at rest or on exertion Cardiovascular: No chest pain, tightness or palpitations Abdomen: No pain, nausea, vomiting, diarrhea or constipation Musculoskeletal: No joint pain, calf pain, swelling Neurologic: No weakness, numbness/tingling, or balance problems Psychiatric: No anxiety or depression Skin: No rash or itch Physical Exam Physical Exam: PHYSICAL EXAM: General: awake, alert, no apparent distress Head: Normocephalic, atraumatic ENT: PERRL, EOMI, no pharyngeal exudate, mucous membranes moist Neuro: AAO x 3, speech clear and appropriate, strength intact bilaterally 5/5 (excluding right BKA), sensation intact and equal all extremities and dermatomes, no pronator drift Chest: equal rise and fall of the chest, tachypneic with movement, scattered crackles through out with end expiratory wheeze in the bases, on oxymask, Cardiac: Regular rate and rhythm, telemetry reviewed- 100% V Pace, skin warm dry, cap refill <3 seconds, peripheral pulses +2 no JVD, systollic murmur radiates to carotids, +2 edema to left lower leg up to just below the knee GI: NABS x 4 quadrants, soft, nontender to palpation, no rebound, guarding or tenderness : Spontaneously voiding, no pain, no CVA tenderness, does endorse some difficulty completely emptying bladder Extremities: Normal inspection, no peripheral edema or erythema, calfs nontender to palpation Psych: Normal mood and affect Skin: well healing venous ulcerations to left lower leg Results & Data Results & Data ([facility]) Vital Signs (Past 12 Hours) Vital Signs Temp Pulse Resp BP Pulse Ox 08/01/21 13:15 112 H 22 177/104 H 90 08/01/21 13:00 101 H 23 188/100 H 93 08/01/21 12:51 102 H 22 170/91 H 96 08/01/21 12:30 102 H 31 H 159/119 H 96 08/01/21 12:00 104 H 29 H 174/85 H 95 08/01/21 11:30 105 H 30 H 161/92 H 94 08/01/21 11:26 105 H 94 08/01/21 11:24 68 L 08/01/21 11:19 37.2 C 111 H 28 H 129/82 68 L 08/01/21 11:10 109 H 26 H 129/82 90 Laboratory Results Abnormal Labs 08/01/21 08/01/21 08/01/21 11:00 11:00 11:00 WBC 14.01 H RBC 3.82 L Hgb 11.4 L Hct 35.7 L MCHC 31.9 L RDW Std Deviation 51.6 H RDW Coeff of Nicolasa 15.2 H MPV 11.1 H Neut # (Auto) 11.92 H Lymph # (Auto) 0.64 L Beaver # (Auto) 1.30 H Immature Gran # (Auto) 0.04 H PT 14.6 H INR 1.5 H APTT 33.0 H BUN 42 H Creatinine 3.14 H Glucose 223 H Troponin I 0.214 H* NT-Pro-B Natriuret Pep Globulin 4.6 H Albumin/Globulin Ratio 0.7 L 08/01/21 11:00 WBC RBC Hgb Hct MCHC RDW Std Deviation RDW Coeff of Nicolasa MPV Neut # (Auto) Lymph # (Auto) Beaver # (Auto) Immature Gran # (Auto) PT INR APTT BUN Creatinine Glucose Troponin I NT-Pro-B Natriuret Pep 3549 H Globulin Albumin/Globulin Ratio Diagnostic Findings Chest X-Ray 08/01/21 11:26 XR chest 1V portable HISTORY: Shortness of breath. COMPARISON: Chest 09/30/2020. FINDINGS: No pneumothorax. Trace bilateral pleural effusions. The cardiac silhouette remains mildly enlarged. The left-sided pacemaker/defibrillator. Diffuse interstitial thickening and hazy bilateral airspace opacities have slightly progressed. IMPRESSION: Slight progression of the diffuse interstitial thickening and hazy bilateral airspace opacities. This could represent pulmonary edema or a viral pneumonia. ACT 112: Negative or not required by law. Electronically signed by: Boubacar Bryant M.D. 08/01/2021 11:53 AM Medications Administered Discontinued Medications Furosemide (Furosemide 40 Mg/4 Ml Vial) 40 mg IV NOW STA Stop: 08/01/21 12:23 Last Admin: 08/01/21 12:43 Dose: 40 mg Documented by: [id number] Home Medications allopurinol 300 mg tablet 300 mg PO QAM 04/22/19 [History Confirmed 08/01/21] fenofibrate nanocrystallized 48 mg tablet 48 mg PO QAM 04/22/19 [History Confirmed 08/01/21] hydralazine 50 mg tablet 50 mg PO BID 04/22/19 [History Confirmed 08/01/21] insulin aspar prt-insulin aspart 100 unit/mL (70-30) subcutaneous soln (Novolog Mix 70-30 U-100 Insuln) 90 unit SUBCUT QPM 04/22/19 [History Confirmed 08/01/21] insulin aspar prt-insulin aspart 100 unit/mL (70-30) subcutaneous soln (Novolog Mix 70-30 U-100 Insuln) 100 unit SUBCUT QAM 04/22/19 [History Confirmed 08/01/21] levothyroxine 112 mcg tablet 112 mcg PO QAM 04/22/19 [History Confirmed 08/01/21] metoprolol tartrate 50 mg tablet 50 mg PO BID 04/22/19 [History Confirmed 08/01/21] simvastatin 40 mg tablet 40 mg PO QAM 04/22/19 [History Confirmed 08/01/21] cholecalciferol (vitamin D3) 25 mcg (1,000 unit) capsule (Vitamin D3) 1,000 unit PO QAM 05/31/19 [History Confirmed 08/01/21] omega-3 360 mg-dha 144 mg-epa 216 mg-fish oil 1,200 mg capsule,del rel (Fish Oil) 1 cap PO QAM 05/31/19 [History Confirmed 08/01/21] furosemide 40 mg tablet 40 mg PO QAM tab 05/15/21 [History Confirmed 08/01/21] warfarin 1 mg tablet 2 mg PO DAILY tab 05/15/21 [History Confirmed 08/01/21] warfarin 5 mg tablet 5 mg PO DAILY tab 05/15/21 [History Confirmed 08/01/21] ascorbic acid (vitamin C) 500 mg tablet (Vitamin C) 500 mg PO DAILY 08/01/21 [History Confirmed 08/01/21] difluprednate 0.05 % eye drops (Durezol) 1 drp OPL BID 08/01/21 [History Confirmed 08/01/21] gatifloxacin 0.5 % eye drops 1 drp OPL TID 08/01/21 [History Confirmed 08/01/21] ECG Additional Comments: Ventricular-paced rhythm Biventricular pacemaker detected Abnormal ECG When compared with ECG of 26-SEP-2020 21:40, Vent. rate has increased BY 33 BPM Code Status & VTE Plan Code Status CODE: FULL VTE: SCDs, resume Warfarin Supervising Physician Co-Signing Physician Notes During face to face encounter with patient, obtained a physical and history. My history and physcial examination did not differ from above. I reviewed above note and agree with it. I discussed plan with WAYNE Haywood and the patient. All questions were answered. Patient will be admitted for SOB and CHF. Patient will be duiresed. Will also check troponins. PG Care Time/CCT Total # of Minutes Spent Total Time Spent with Patient: Total time spent is greater than 50% in coordination of care (as documented) at patient's floor/unit and/or counseling patient: Coding Level of Care Code 64016 Initial Inpt Care Lvl 3 Diagnoses CHF (congestive heart failure) I50.9 Hypoxia R09.02 CKD (chronic kidney disease) stage 4, GFR 15-29 ml/min N18.4 Biventricular ICD (implantable cardioverter-defibrillator) in place Z95.810 Atrial fibrillation I48.91 Atrial fibrillation type: unspecified Hypertension I10 Hypertension type: essential hypertension Chronic venous insufficiency I87.2 Elevated troponin R77.8 (1) Atrial fibrillation Atrial fibrillation type: unspecified Qualified Code(s): I48.91 - Unspecified atrial fibrillation (2) Hypertension Hypertension type: essential hypertension Qualified Code(s): I10 - Essential (primary) hypertension
[2021-08-01] MEDS ORDERED: cefTRIAXone SODIUM 1,000 MG in DEXTROSE 5% 50 ML IV SCH (14:00)
[2021-08-01] MEDS ORDERED: GLUCOSE 40% GEL 15 GM TUBE PO PRN (15:13)
[2021-08-01] MEDS ORDERED: GLUCAGON FOR INJ 1 MG VIAL SQ PRN (15:13)
[2021-08-01] MEDS ORDERED: CARBOHYDRATES FOR HYPOGLYCEMIA PO PRN (15:13)
[2021-08-01] MEDS ORDERED: GLUCOSE 10 TABS/TUBE PO PRN (15:13)
[2021-08-01] MEDS ORDERED: ONDANSETRON INJ 2 MG/ML 2 ML VIAL IV PRN (15:13)
[2021-08-01] MEDS ORDERED: POLYETHYLENE (MIRALAX) 17 GM PACK PO PRN (15:13)
[2021-08-01] MEDS ORDERED: DEXTROSE 50% 50 ML SYRINGE IV PRN (15:13)
[2021-08-01] MEDS ORDERED: FUROSEMIDE 40 MG in SYRINGE 0 ML IV SCH (15:30)
[2021-08-01] MEDS ORDERED: WARFARIN SOD 5 MG TAB PO SCH (16:00)
[2021-08-01] MEDS ORDERED: WARFARIN SOD 2 MG TAB PO SCH (16:00)
[2021-08-01 16:17] LABS: INR 1.4 (0.9-1.1)
[2021-08-01] MEDS: INSULIN ASPART 100 UNITS/ML 3 ML PEN SC SCH ×2 (16:50→21:08)
[2021-08-01] MEDS: FUROSEMIDE 40 MG in SYRINGE 0 ML IV SCH (17:44)
[2021-08-01] MEDS ORDERED: FUROSEMIDE 40 MG/4 ML VIAL IV SCH (18:00)
[2021-08-01] MEDS ORDERED: Heparin IV Adult Wt-Based Low-Dose WITH Bolus Protocol IV SCH (18:52)
[2021-08-01] MEDS ORDERED: HEPARIN SOD (PORCINE) 1000 UNIT/ML IV ONE (19:03)
[2021-08-01] MEDS: ALBUTEROL 0.5% NEB SOLN 2.5 MG/0.5 ML VIAL NEB SCH (19:32)
[2021-08-01] MEDS ORDERED: HEPARIN IV BOLUS 4,000 UNITS in SYRINGE 0 ML IV ONE (20:00)
[2021-08-01] MEDS: HEPARIN SODIUM/DEXTROSE 25,000 UNITS/500 ML BAG IV SCH (20:18)
[2021-08-01] MEDS: hydrALAZINE TAB 50 MG TAB PO SCH (21:09)
[2021-08-01] MEDS: METOPROLOL TARTRATE 50 MG TAB PO SCH (21:09)
[2021-08-02] MEDS ORDERED: Nursing to Pharmacy Communication SCH ×2 (00:15→23:30)
[2021-08-02] MEDS: ALBUTEROL 0.5% NEB SOLN 2.5 MG/0.5 ML VIAL NEB SCH ×2 (01:20→07:40)
[2021-08-02] MEDS: FUROSEMIDE 40 MG in SYRINGE 0 ML IV SCH ×2 (01:42→11:20)
[2021-08-02 02:44] LABS: Basophils # (auto) 0.02 K/uL (0-0.2); Basophils % (auto) 0.2 %; Eosinophils # (auto) 0.16 K/uL (0-0.5); Eosinophils % (auto) 1.2 %; Hematocrit (blood only) 31.9 % (42-52); Hemoglobin 10.5 g/dL (14.0-18.0); Immature Granulocytes # (auto) 0.03 K/uL (0.00-0.02); Immature Granulocytes % (auto) 0.2 %; Lymphocytes # (auto) 1.07 K/uL (1.2-3.4); Lymphocytes % (auto) 8.2 %; Mean Corpuscular Hemoglobin 29.8 pg (25-34); Mean Corpuscular Hgb Conc 32.9 g/dL (32-36); Mean Corpuscular Volume 90.6 fL (80-100); Mean Platelet Volume 10.2 fL (7.4-10.4); Monocytes # (auto) 1.15 K/uL (0.11-0.59); Monocytes % (auto) 8.8 %; Neutrophils # (auto) 10.65 K/uL (1.4-6.5); Neutrophils % (auto) 81.4 %; Platelet Count 220 K/uL (130-400); RDW Coefficient of Variation 15.3 % (11.5-14.5); RDW Standard Deviation 50.4 fL (36.4-46.3); Red Blood Count 3.52 M/uL (4.7-6.1); White Blood Count 13.08 K/uL (4.8-10.8)
[2021-08-02 02:54] LABS: INR 1.3 (0.9-1.1); Partial Thromboplastin Ratio 1.3; Partial Thromboplastin Time 34.1 Seconds (21.0-31.0); Prothrombin Time 13.3 Seconds (9.0-12.0)
[2021-08-02 03:04] LABS: Calcium 9.1 mg/dl (8.5-10.1); Creatinine Clr Calc Pharmacy 26.7 ml/min; Est GFR (Non-African American) 16.4 ml/min; Magnesium 1.9 mg/dl (1.8-2.4); Potassium 4.4 mmol/L (3.5-5.1)
[2021-08-02 03:14] LABS: Troponin I 7.67 ng/ml (0-0.045)
[2021-08-02] MEDS ORDERED: HEPARIN SOD (PORCINE) 1000 UNIT/ML IV ONE ×2 (03:30→11:27)
[2021-08-02] MEDS: INSULIN ASPART 100 UNITS/ML 3 ML PEN SC SCH ×3 (06:15→17:54)
[2021-08-02] MEDS: LEVOTHYROXINE SODIUM 112 MCG TABLET PO SCH (08:21)
[2021-08-02] MEDS: FENOFIBRATE NANOCRYSTALLIZED 48 MG TABLET PO SCH (08:21)
[2021-08-02] MEDS: METOPROLOL TARTRATE 50 MG TAB PO SCH (08:21)
[2021-08-02] MEDS: hydrALAZINE TAB 50 MG TAB PO SCH ×2 (08:21→21:28)
[2021-08-02] MEDS: SIMVASTATIN 40 MG TAB PO SCH (08:21)
[2021-08-02 09:11] LABS: Partial Thromboplastin Ratio 1.4; Partial Thromboplastin Time 37.1 Seconds (21.0-31.0)
--- NOTE | 2021-08-02 12:47 | Cardiology Consultation ---
Date of Consultation August 02, 2021 Assessment & Plan (1) Elevated troponin: (2) Pulmonary edema: (3) Nonischemic cardiomyopathy: (4) CKD (chronic kidney disease) stage 4, GFR 15-29 ml/min: Patient is a very complex 75-year-old male with longstanding history of nonischemic cardiomyopathy with extensive apical and septal scar by past echocardiogram and cardiac MRI. Overall LV function initially improved with biventricular pacemaker Patient presents now historically describing subacute congestive heart failure superimposed on chronic class IV renal insufficiency. Chest x-ray consistent with mild pulmonary edema. Since admission however troponins have trended upward in a crescendo decrescendo pattern concerning for myocardial ischemia. Patient however without signs or symptoms of angina or acute change Significant renal dysfunction present and would likely deteriorate with contrast administration. Echocardiogram demonstrates ejection fraction of 45% with old apical scar Recommendations we will treat congestive heart failure medically unless patient becomes unstable. Agree with IV heparin in lieu of warfarin at this time We will discontinue IV furosemide Begin IV Bumex Nephrology consultation placed given likely further worsening of chronic renal sufficiency Metoprolol titrate switched back to metoprolol succinate Cardiology will follow in hospital History of Present Illness Reason for Consultation: Congestive heart failure, elevated troponin Requesting Physician: Dr. Kim Attending Physician: Tanner Kim History of Present Illness Patient is a 75-year-old male with complex history which include 1.Diffuse cardiomyopathy diagnosed in 2007 when presenting with atrial fibrillation with rapid ventricular response, pulmonary edema, and severe LV dysfunction extensive apical scar on echo and cardiac MRI 2.Diffuse moderate coronary atherosclerosis without high-grade obstruction with coronary disease insufficient to explain LV dysfunction. 3.Status post AICD implantation August 2008 with device upgrade and repl acement with Bi-V (biventricular) device 2012, generator exchange March 2019, Medtronic D3 1 4 TR G 4.Improved LV systolic function , EF 50% July 06, 2020 5.Hypertension. 6.Hyperlipidemia. 7.Type 2 diabetes mellitus. 8.Moderate aortic stenosis. 9. Chronic kidney disease, stage IV+ Patient presents this admission having been referred after elective cataract surgery during which hypoxia was observed. Evaluation in the ER revealed findings consistent with congestive heart failure/pulmonary edema. Patient has been aware of increasing symptoms of shortness of breath and or thopnea with associated small amounts of hemoptysis x2 to 3 weeks prior to hospitalization. Notes no acute chest pains, tachypalpitations, syncope or near syncope. No defibrillator activation. Weight is up slightly. He is not aware of any fevers chills or unexplained infection. Denies headache or visual changes. Has been following with wound clinic due to nonhealing ulcers of the right leg. Last cardiology, nephrology visit March 2021 Overnight patient did have diuresis but still somewhat dyspneic when lying flat. No chest pains or discomfort however troponins are significantly elevated. Allergies Allergy/AdvReac Type Severity Reaction Status Date / Time No Known Allergies Allergy Verified 08/01/21 06:39 Home Medications Medication Instructions Recorded Confirmed Type allopurinol 300 mg tablet 300 mg PO QAM 04/22/19 08/01/21 History fenofibrate nanocrystallized 48 mg 48 mg PO QAM 04/22/19 08/01/21 History tablet hydralazine 50 mg tablet 50 mg PO BID 04/22/19 08/01/21 History insulin aspar prt-insulin aspart 90 unit SUBCUT QPM 04/22/19 08/01/21 History 100 unit/mL (70-30) subcutaneous soln (Novolog Mix 70-30 U-100 Insuln) insulin aspar prt-insulin aspart 100 unit SUBCUT QAM 04/22/19 08/01/21 History 100 unit/mL (70-30) subcutaneous soln (Novolog Mix 70-30 U-100 Insuln) levothyroxine 112 mcg tablet 112 mcg PO QAM 04/22/19 08/01/21 History metoprolol tartrate 50 mg tablet 50 mg PO BID 04/22/19 08/01/21 History simvastatin 40 mg tablet 40 mg PO QAM 04/22/19 08/01/21 History cholecalciferol (vitamin D3) 25 1,000 unit PO QAM 05/31/19 08/01/21 History mcg (1,000 unit) capsule (Vitamin D3) omega-3 360 mg-dha 144 mg-epa 216 1 cap PO QAM 05/31/19 08/01/21 History mg-fish oil 1,200 mg capsule,del rel (Fish Oil) furosemide 40 mg tablet 40 mg PO QAM tab 05/15/21 08/01/21 History warfarin 1 mg tablet 2 mg PO DAILY tab 05/15/21 08/01/21 History warfarin 5 mg tablet 5 mg PO DAILY tab 05/15/21 08/01/21 History ascorbic acid (vitamin C) 500 mg 500 mg PO DAILY 08/01/21 08/01/21 History tablet (Vitamin C) difluprednate 0.05 % eye drops 1 drp OPL BID 08/01/21 08/01/21 History (Durezol) gatifloxacin 0.5 % eye drops 1 drp OPL TID 08/01/21 08/01/21 History Patient History Medical History (Updated 08/02/21 @ 13:10 by Dante Simmons MD) Atrial fibrillation 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 Bilateral interstitial pneumonia hx CAD (coronary artery disease) Cardiac defibrillator in place follows with [facility] cardiology ([facility]) CHF (congestive heart failure) CKD (chronic kidney disease) stage 4, GFR 15-29 ml/min Heart disease Hx of colonic polyps Hyperlipidemia Hypertension Hypothyroidism ICD (implantable cardioverter-defibrillator) battery depletion Pt with BiV ICD at [facility]; for a generator change; discussed the procedure and potential risks with the patient which include but not limited to , arrhythmia, stroke, heart attack, bleeding and infection. consent obtained LBBB (left bundle branch block) Myocardial Infarction (~2007) reason for the cardio/defib. Nonischemic cardiomyopathy Postoperative hematoma hx PVD (peripheral vascular disease) T2DM (type 2 diabetes mellitus) Surgical History (Updated 08/02/21 @ 13:11 by Dante Simmons MD) Biventricular ICD (implantable cardioverter-defibrillator) in place initially placed in 2007 secondary to nonischemic WEED ERADICATOR and converted to a BiV in 02/2013 with recent generator exchange 04/19/19 History of colonoscopy History of left heart catheterization No obstructive coronary disease, 2007 Family History Father Stroke Mother Diabetes Social History Smoking Status: Former smoker Tobacco Type: Cigarettes Cigarettes Per Day: 1983; Second Hand Exposure: No; Do You Dip or Chew Tobacco: No; Tobacco Cessation Education Requested by Patient: No Hx Alcohol Use: No Hx Substance Use: No Preferred Language: Hungarian Communication Ability: Effective Visual Impairment: Limited Hearing Ability: Normal Consulting Solution Manager Required: No Beliefs That Will Affect Care: None marital status: Current Living Situation: Alone Current Living Situation Comment: lives in house alone current occupational status: retired How many Children do You have: 2 How many Children do You have Comment: family fairly local and able to help with care Other Information That Helps Us Care for You: No Feels Safe at Home: Yes Safety Concerns: Feels Safe At This Time Diet Comment: stated he "watches sweet", but it's difficult Assistive Devices: Oxygen - Continuous and Prosthesis Assistive Devices Comment: Uses a wheelchair to get around the house, uses a cane while outside Review of Systems Review of Systems: All systems reviewed & are unremarkable except as noted in HPI & below Physical Exam Constitutional: + obese; no acute distress Eyes: PERRL, conjunctivae normal, anicteric sclerae ENMT: external ear and nose normal, oropharynx normal Neck: trachea midline, no thyromegaly Respiratory: Auscultation: + diminished lung sounds and + rales Cardiovascular: Rate/Rhythm: regular rate and regular rhythm Heart Sounds: + murmur (Grade 2 harsh systolic ejection murmur no diastolic) Vessels: + JVD Extremities: + edema Chest (Breasts): Additional Comments: Barrel chested Gastrointestinal (Abdomen): normal bowel sounds, soft, nontender, no hepatosplenomegaly Musculoskeletal: Status post right BKA Psychiatric: A+Ox3, euthymic affect Results & Data ([facility]) Vital Signs (Past 12 Hours) Vital Signs Temp Pulse Pulse Resp BP Pulse Ox 08/02/21 12:00 36.8 C 76 20 151/82 H 94 08/02/21 11:00 81 08/02/21 07:51 36.6 C 78 20 126/75 95 08/02/21 07:41 80 18 97 08/02/21 03:48 36.9 C 82 24 133/71 94 Laboratory Results Laboratory Results - last 24 hr 08/01/21 08/01/21 08/01/21 11:00 11:00 12:25 WBC RBC Hgb Hct MCV MCH MCHC RDW Std Deviation RDW Coeff of Nicolasa Plt Count MPV Immature Gran % (Auto) Neut % (Auto) Lymph % (Auto) Warren % (Auto) Eos % (Auto) Baso % (Auto) Neut # (Auto) Lymph # (Auto) Warren # (Auto) Eos # (Auto) Baso # (Auto) Immature Gran # (Auto) PT INR APTT PTT Ratio Sodium Potassium Chloride Carbon Dioxide Anion Gap BUN Creatinine Est Cr Clr Drug Dosing Est GFR ( Amer) Est GFR (Non-Af Amer) BUN/Creatinine Ratio Glucose POC Glucose Calcium Magnesium Troponin I NT-Pro-B Natriuret Pep 3549 H Triglycerides Cholesterol LDL Cholesterol, Calc VLDL Cholesterol, Calc HDL Cholesterol Cholesterol/HDL Ratio Procalcitonin 0.12 SARS-CoV-2 (PCR) NEGATIVE 08/01/21 08/01/21 08/01/21 15:28 16:47 17:10 WBC RBC Hgb Hct MCV MCH MCHC RDW Std Deviation RDW Coeff of Nicolasa Plt Count MPV Immature Gran % (Auto) Neut % (Auto) Lymph % (Auto) Warren % (Auto) Eos % (Auto) Baso % (Auto) Neut # (Auto) Lymph # (Auto) Warren # (Auto) Eos # (Auto) Baso # (Auto) Immature Gran # (Auto) PT 14.0 H INR 1.4 H APTT PTT Ratio Sodium Potassium Chloride Carbon Dioxide Anion Gap BUN Creatinine Est Cr Clr Drug Dosing Est GFR ( Amer) Est GFR (Non-Af Amer) BUN/Creatinine Ratio Glucose POC Glucose 276 H Calcium Magnesium Troponin I 4.220 H* NT-Pro-B Natriuret Pep Triglycerides Cholesterol LDL Cholesterol, Calc VLDL Cholesterol, Calc HDL Cholesterol Cholesterol/HDL Ratio Procalcitonin SARS-CoV-2 (PCR) 08/01/21 08/01/21 08/01/21 20:22 20:23 22:46 WBC RBC Hgb Hct MCV MCH MCHC RDW Std Deviation RDW Coeff of Nicolasa Plt Count MPV Immature Gran % (Auto) Neut % (Auto) Lymph % (Auto) Warren % (Auto) Eos % (Auto) Baso % (Auto) Neut # (Auto) Lymph # (Auto) Warren # (Auto) Eos # (Auto) Baso # (Auto) Immature Gran # (Auto) PT INR APTT PTT Ratio Sodium Potassium Chloride Carbon Dioxide Anion Gap BUN Creatinine Est Cr Clr Drug Dosing Est GFR ( Amer) Est GFR (Non-Af Amer) BUN/Creatinine Ratio Glucose POC Glucose 335 H* 335 H* Calcium Magnesium Troponin I 7.980 H* NT-Pro-B Natriuret Pep Triglycerides Cholesterol LDL Cholesterol, Calc VLDL Cholesterol, Calc HDL Cholesterol Cholesterol/HDL Ratio Procalcitonin SARS-CoV-2 (PCR) 08/02/21 08/02/21 08/02/21 00:14 02:29 02:29 WBC 13.08 H RBC 3.52 L Hgb 10.5 L Hct 31.9 L MCV 90.6 MCH 29.8 MCHC 32.9 RDW Std Deviation 50.4 H RDW Coeff of Nicolasa 15.3 H Plt Count 220 MPV 10.2 Immature Gran % (Auto) 0.2 Neut % (Auto) 81.4 Lymph % (Auto) 8.2 Warren % (Auto) 8.8 Eos % (Auto) 1.2 Baso % (Auto) 0.2 Neut # (Auto) 10.65 H Lymph # (Auto) 1.07 L Warren # (Auto) 1.15 H Eos # (Auto) 0.16 Baso # (Auto) 0.02 Immature Gran # (Auto) 0.03 H PT 13.3 H INR 1.3 H APTT 34.1 H PTT Ratio 1.3 Sodium Potassium Chloride Carbon Dioxide Anion Gap BUN Creatinine Est Cr Clr Drug Dosing Est GFR ( Amer) Est GFR (Non-Af Amer) BUN/Creatinine Ratio Glucose POC Glucose 274 H Calcium Magnesium Troponin I NT-Pro-B Natriuret Pep Triglycerides Cholesterol LDL Cholesterol, Calc VLDL Cholesterol, Calc HDL Cholesterol Cholesterol/HDL Ratio Procalcitonin SARS-CoV-2 (PCR) 08/02/21 08/02/21 08/02/21 02:29 06:10 08:35 WBC RBC Hgb Hct MCV MCH MCHC RDW Std Deviation RDW Coeff of Nicolasa Plt Count MPV Immature Gran % (Auto) Neut % (Auto) Lymph % (Auto) Warren % (Auto) Eos % (Auto) Baso % (Auto) Neut # (Auto) Lymph # (Auto) Warren # (Auto) Eos # (Auto) Baso # (Auto) Immature Gran # (Auto) PT INR APTT 37.1 H PTT Ratio 1.4 Sodium 134 L Potassium 4.4 Chloride 102 Carbon Dioxide 26 Anion Gap 6.0 BUN 52 H Creatinine 3.45 H D Est Cr Clr Drug Dosing 26.7 Est GFR ( Amer) 19.0 Est GFR (Non-Af Amer) 16.4 BUN/Creatinine Ratio 15.0 Glucose 250 H POC Glucose 279 H Calcium 9.1 Magnesium 1.9 Troponin I 7.670 H* NT-Pro-B Natriuret Pep Triglycerides 185 H Cholesterol 149 LDL Cholesterol, Calc 76 VLDL Cholesterol, Calc 37 HDL Cholesterol 36 Cholesterol/HDL Ratio 4 Procalcitonin SARS-CoV-2 (PCR) 08/02/21 08/02/21 10:40 12:42 WBC RBC Hgb Hct MCV MCH MCHC RDW Std Deviation RDW Coeff of Nicolasa Plt Count MPV Immature Gran % (Auto) Neut % (Auto) Lymph % (Auto) Warren % (Auto) Eos % (Auto) Baso % (Auto) Neut # (Auto) Lymph # (Auto) Warren # (Auto) Eos # (Auto) Baso # (Auto) Immature Gran # (Auto) PT INR APTT PTT Ratio Sodium Potassium Chloride Carbon Dioxide Anion Gap BUN Creatinine Est Cr Clr Drug Dosing Est GFR ( Amer) Est GFR (Non-Af Amer) BUN/Creatinine Ratio Glucose POC Glucose 293 H Calcium Magnesium Troponin I 5.380 H* NT-Pro-B Natriuret Pep Triglycerides Cholesterol LDL Cholesterol, Calc VLDL Cholesterol, Calc HDL Cholesterol Cholesterol/HDL Ratio Procalcitonin SARS-CoV-2 (PCR) ECG Additional Comments: EKG 08/02/2021 atrial sensed, ventricular paced (1) Pulmonary edema Chronicity: acute Qualified Code(s): J81.0 - Acute pulmonary edema
[2021-08-02] MEDS ORDERED: BUMETANIDE 1 MG in SYRINGE 0 ML IV ONE (13:00)
[2021-08-02] MEDS: ALBUTEROL 0.083% NEBU SOLN 3 ML VIAL NEB SCH ×2 (13:18→20:10)
[2021-08-02] MEDS: ISOSORBIDE DINITRATE 20 MG TAB PO SCH ×2 (14:10→17:58)
[2021-08-02] MEDS ORDERED: PHARMACY GLYCEMIC MGMT CONSULT PRN (14:59)
--- NOTE | 2021-08-02 15:12 | Electrocardiogram Report ---
Test Reason : Blood Pressure : / mmHG Vent. Rate : 108 BPM Atrial Rate : 108 BPM P-R Int : 000 ms QRS Dur : 154 ms QT Int : 414 ms P-R-T Axes : 076 258 077 degrees QTc Int : 554 ms Sinus tachycardia Ventricular-paced rhythm Biventricular pacemaker detected Abnormal ECG When compared with ECG of 26-SEP-2020 21:40, Vent. rate has increased BY 33 BPM Confirmed by Devon De La Cruz ([id number]) on 08/02/2021 3:12:07 PM Referred By: Confirmed By:Edil De La Cruz
--- NOTE | 2021-08-02 15:14 | Pharmacy Report ---
Pharmacy Glycemic Short Note 2 - Date of Service August 02, 2021 - Glycemic Short BSG Results (Last 24 hours): 08/01/21 08/01/21 08/01/21 16:47 20:22 20:23 Glucose POC Glucose 276 H 335 H* 335 H* 08/02/21 08/02/21 08/02/21 00:14 02:29 06:10 Glucose 250 H POC Glucose 274 H 279 H 08/02/21 12:42 Glucose POC Glucose 293 H OUTPATIENT ANTIDIABETIC REGIMEN: * Novolog 70/30: 100 units QAM, 90 units QPM * A1c 10.9% 01/14/21, updated A1c ordered ASSESSMENT: * 75 year old male admitted with CHF, elevated troponin, on heparin drip, type 2 diabetic, uncontrolled, no basal insulin given since admitted last night, pharmacy consulted for glycemic control * Add basal insulin with NPH to match insulins in mixed insulin patient uses at home * Outpatient regimen is premixed basal/prandial insulin of Novolog 70/30 mix insulin. * Pre-mixed insulin is difficult to titrate since it is already in a fixed distribution of basal:prandial insulin. Continuing pre-mixed insulin for ad mission typically lead to hypoglycemia d/t changing PO status but rapid acting insulin is unable to be held. * Home regimen will be held for admission per pharmacy consult. Will utilize SQ basal bolus insulin regimen with NPH + NovoLog (CF+CR) * Tighten CF/CR * Overnight accuchecks while reaching euglycemia PLAN FOR INPATIENT GLYCEMIC CONTROL: * Hold outpatient pre-mixed insulin * Basal insulin * NPH BID with meals: * 20 units for BSG < 110 * 25 units for BSG 110-140 * 30 units for BSG > 140 * Bolus insulin * NovoLog per scale ACHS or Q6hrs while NPO + 0000, 0400 * Goal Range: Low 110 mg/dL - High 140 mg/dL * Correction Factor: 15 mg/dL/unit * Nutritional / Prandial insulin per carb ratio of 1 unit per 5 grams CHO consumed PLAN FOR DISCHARGE: * to be determined
--- NOTE | 2021-08-02 15:28 | Electrocardiogram Report ---
Test Reason : Blood Pressure : / mmHG Vent. Rate : 082 BPM Atrial Rate : 082 BPM P-R Int : 178 ms QRS Dur : 146 ms QT Int : 440 ms P-R-T Axes : 082 -62 117 degrees QTc Int : 514 ms Atrial-sensed ventricular-paced rhythm Abnormal ECG When compared with ECG of 01-AUG-2021 11:14, (unconfirmed) Vent. rate has decreased BY 26 BPM Confirmed by Devon De La Cruz ([id number]) on 08/02/2021 3:28:49 PM Referred By: REFERRED SELF Confirmed By:Edil De La Cruz
--- NOTE | 2021-08-02 15:32 | Electrocardiogram Report ---
Test Reason : Blood Pressure : / mmHG Vent. Rate : 073 BPM Atrial Rate : 073 BPM P-R Int : 146 ms QRS Dur : 150 ms QT Int : 462 ms P-R-T Axes : 000 170 -07 degrees QTc Int : 508 ms Atrial-sensed ventricular-paced rhythm with occasional AV dual-paced complexes Abnormal ECG When compared with ECG of 01-AUG-2021 11:14, (unconfirmed) Vent. rate has decreased BY 35 BPM Confirmed by Devon De La Cruz ([id number]) on 08/02/2021 3:32:19 PM Referred By: REFERRED SELF Confirmed By:Edil De La Cruz
--- NOTE | 2021-08-02 15:43 | Consultation Report ---
NEPHROLOGY CONSULTATION DATE OF CONSULTATION: 08/02/2021. REASON FOR CONSULTATION: CKD stage IV, with pulmonary edema requiring aggressive diuresis. HISTORY OF PRESENT ILLNESS: The patient is a 75-year-old male whom I actually saw in my clinic in for his progressive CKD stage IV. His last 2 outpatient creatinine was 3.4 and 3.7 and getting worse. On top of that, he also has extensive cardiopulmonary problems. He presented to the [facility] yesterday because of dyspnea and hypoxia. He actually had cataract surgery yesterday, but after th e surgery, he started getting short of breath with orthopnea, PND as well as increasing lower extremi ty edema. He also had cough with hemoptysis. As outpatient, he is supposed to be on Lasix 60 mg in the morning and 40 mg in the afternoon, which he admits to taking it. He admitted to drinking slight ly more liquid the last few days. He has been tested for COVID and is negative. Since admission, he received Lasix 40 mg IV yesterday and Bumex earlier today. He made 2900 mL overnight of urine. He is still orthopneic, but he feels slightly better breathing collins compared to yesterday. His creatinine at this point is right at the baseline with the most recent value of 3.45. PAST MEDICAL AND SURGICAL HISTORY: Includes coronary artery disease, history of [place], heart failure wi slightly low ejection fraction of 45%, biventricular defibrillator and pacemaker, type 2 diabetes on insulin longstanding, hyperlipidemia, chronic kidney disease stage IV, approaching stage V now wit h the most recent outpatient creatinines are 3.4 and 3.7, hypothyroidism, chronic anticoagulation wit h Coumadin for AFib, aortic stenosis, obesity. ALLERGIES: List none. MEDICATIONS: Home medication list was reviewed in detail and is as per the reconciliation list. Bas ed on his Epic medication list, he is supposed to be on Lasix 60 mg in the morning and 40 in the even ing. SOCIAL HISTORY: Patient is a former smoker. Limited ambulation. He is retired, . No oxyge n at home. REVIEW OF SYSTEMS: As detailed in HPI, unless stated otherwise 12 systems reviewed and negative. PHYSICAL EXAMINATION: GENERAL: Elderly white male. VITAL SIGNS: Shows blood pressure 151/82, pulse rate 81, temperature 36.8, oxygen saturation 92% on OxyMask. HEENT: Mucous membrane is moist. NECK: Supple. Cannot assess JVD secondary to short, obese neck. CHEST: Bilateral decreased breath sounds, occasional crackles at the bases. CARDIOVASCULAR: S1 and S2, irregular. Soft systolic murmur heard. ABDOMEN: Soft, nontender, obese. EXTREMITIES: Shows right BKA and left has 2+ edema, but is bandaged. NEUROLOGIC: Awake, alert and oriented. Normal speech. LABORATORY TEST: From this morning show sodium 134, potassium 4.4, BUN 52, creatinine 3.45. Troponi n is significantly elevated. Chest x-ray shows congestive heart failure/pulmonary edema. ASSESSMENT AND PLAN: A 75-year-old male with chronic kidney disease stage IV, approaching chronic ki dney disease stage V with a last 2 outpatient creatinines of 3.4 and 3.7, secondary to longstanding d iabetes and cardiac disease, now admitted with congestive heart failure episodes. Acute renal failure. The acute component is really not there as current creatinine is pretty much hi s baseline from 03/2021. However, there is significant likelihood of a creatinine going up in the co glenda days. At this point, he is fluid overloaded and I would continue with the Bumex as is being don e even with the current dose of diuretic, he did make 2900 mL of urine, which is reasonable, and I wi ll continue the same. However, if needed, he can have much higher dose of Bumex. Continue to monito r daily function. We will continue to follow. Job ID: [id number]
[2021-08-02] MEDS ORDERED: BUMETANIDE 2 MG in SYRINGE 0 ML IV SCH (17:00)
[2021-08-02] MEDS ORDERED: BUMETANIDE 1 MG in SYRINGE 0 ML IV SCH (17:00)
[2021-08-02] MEDS: HEPARIN SODIUM/DEXTROSE 25,000 UNITS/500 ML BAG IV SCH ×2 (17:53→19:42)
[2021-08-02] MEDS: BUMETANIDE 1 MG in SYRINGE 0 ML IV SCH (17:53)
[2021-08-02] MEDS: INSULIN HUMAN NPH SC SCH (17:54)
--- NOTE | 2021-08-02 18:00 | Electrocardiogram Report ---
Test Reason : Blood Pressure : / mmHG Vent. Rate : 088 BPM Atrial Rate : 088 BPM P-R Int : 164 ms QRS Dur : 144 ms QT Int : 448 ms P-R-T Axes : 079 -60 110 degrees QTc Int : 542 ms Atrial-sensed ventricular-paced rhythm with Premature atrial complexes with Aberrant conduction Abnormal ECG When compared with ECG of 01-AUG-2021 23:19, (unconfirmed) Aberrant conduction is now Present Vent. rate has increased BY 15 BPM Confirmed by Devon De La Cruz ([id number]) on 08/02/2021 6:00:06 PM Referred By: REFERRED SELF Confirmed By:Edli De La Cruz
[2021-08-02 18:53] LABS: Partial Thromboplastin Ratio 1.5
--- NOTE | 2021-08-02 21:13 | Hospitalist Progress Note ---
Date of Service August 02, 2021 Assessment & Plan (1) CHF (congestive heart failure): Plan: Acute on chronic heart failure- HFrEF - patient endorses symptoms worsening over the past 1-2 months - crackles on exam and wet productive cough - continue lasix IV - Valencia catheter placed for SUMMER as well as his dyspnea with movement - Continue metoprolol - ECHO evaluate valve function and WM - BNP 3549 - BiPAP if needed for support (2) Hypoxia: Plan: CHF vs. infectious vs. other - Patient feels breathing has improved since coming to [facility] - Oxygen support for SPO2 >92% - NC/HFNC/BiPAP - Albuterol PRN - Although WBC elevated- he endorses no fever, sputum at this time not consistent with PNA - PCT 0.12- follow clinically with repeat labs in AM- If clinical picture becomes consistent with infectious etiology add ABX coverage/biofire (3) Elevated troponin: Plan: Likely type II secondary to hypoxia and volume stress - Trend ECG and Troponin I -consulted cardio: no cardiac cath is indicated at the moment due to decreased kidney function. - No CP prior to or now during admission (4) CKD (chronic kidney disease) stage 4, GFR 15-29 ml/min: Plan: Chronic- [employer] is at baseline at current - follow with diuresing (5) Biventricular ICD (implantable cardioverter-defibrillator) in place: Plan: BiV- DDDR (afib underlying) Rate 60BMP; Upper tracking 120; Upper AT 170, VF: >200 - Appropriate fire and capture on ECG (6) Atrial fibrillation: Plan: As above - continue metoprolol - Start back on Warfarin 7mg daily- INR daily (7) Hypertension: Plan: Continue Hydralazine and Metoprolol - adjustment may be needed following evaluation and diuresing - Morning medications given in the [facility] prior to admission (8) Chronic venous insufficiency: Plan: Follows with woundcare- well healed ulcerations to left leg- 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 Review of Systems Review of Systems: REVIEW OF SYSTEMS: Constitutional: No fever, sweats or chills Eyes: No diplopia, no worsening or blurred vision ENT: normal hearing, no trouble swallowing Respiratory: (+) cough, sputum, dyspnea at rest or on exertion Cardiovascular: No chest pain, tightness or palpitations Abdomen: No pain, nausea, vomiting, diarrhea or constipation Musculoskeletal: No joint pain, calf pain, swelling Neurologic: No weakness, numbness/tingling, or balance problems Psychiatric: No anxiety or depression Skin: No rash or itch Physical Exam Physical Exam: General: awake, alert, no apparent distress Head: Normocephalic, atraumatic ENT: PERRL, EOMI, no pharyngeal exudate, mucous membranes moist Neuro: AAO x 3, speech clear and appropriate, strength intact bilaterally 5/5 (excluding right BKA), sensation intact and equal all extremities and dermatomes, no pronator drift Chest: equal rise and fall of the chest, tachypneic with movement, scattered crackles through out with end expiratory wheeze in the bases, on oxymask, Cardiac: Regular rate and rhythm, telemetry reviewed- 100% V Pace, skin warm dry, cap refill <3 seconds, peripheral pulses +2 no JVD, systollic murmur radiates to carotids, +2 edema to left lower leg up to just below the knee GI: NABS x 4 quadrants, soft, nontender to palpation, no rebound, guarding or tenderness : Spontaneously voiding, no pain, no CVA tenderness, does endorse some difficulty completely emptying bladder Extremities: Normal inspection, no peripheral edema or erythema, calfs nontender to palpation Psych: Normal mood and affect Skin: well healing venous ulcerations to left lower leg Results & Data Results & Data ([facility]) Vital Signs (Past 12 Hours) Vital Signs Temp Pulse Pulse Resp BP Pulse Ox Pulse Ox 08/02/21 20:10 75 22 97 08/02/21 19:41 36.9 C 81 18 114/62 94 08/02/21 15:44 36.6 C 95 H 22 125/72 96 08/02/21 14:00 92 08/02/21 13:20 81 18 95 08/02/21 12:00 36.8 C 76 20 151/82 H 94 08/02/21 11:00 81 Pulse Ox Pulse Ox 08/02/21 20:10 08/02/21 19:41 08/02/21 15:44 08/02/21 14:00 92 87 L 08/02/21 13:20 08/02/21 12:00 08/02/21 11:00 PG Care Time/CCT Total # of Minutes Spent Total Time Spent with Patient: Total time spent is greater than 50% in coordination of care (as documented) at patient's floor/unit and/or counseling patient: Coding Level of Care Code 08197 Subseq Hosp Care Lvl 2 Diagnoses CHF (congestive heart failure) I50.9 Hypoxia R09.02 Elevated troponin R77.8 CKD (chronic kidney disease) stage 4, GFR 15-29 ml/min N18.4 Biventricular ICD (implantable cardioverter-defibrillator) in place Z95.810 Atrial fibrillation I48.91 Atrial fibrillation type: unspecified Hypertension I10 Hypertension type: essential hypertension Chronic venous insufficiency I87.2 Time Spent (min) 25 (1) Atrial fibrillation Atrial fibrillation type: unspecified Qualified Code(s): I48.91 - Unspecified atrial fibrillation (2) Hypertension Hypertension type: essential hypertension Qualified Code(s): I10 - Essential (primary) hypertension
[2021-08-02] MEDS: METOPROLOL SUCC 50MG EXT REL TAB PO SCH (21:28)
[2021-08-03] MEDS: INSULIN ASPART 100 UNITS/ML 3 ML PEN SC SCH ×5 (00:15→20:13)
[2021-08-03 01:04] LABS: Basophils # (auto) 0.02 K/uL (0-0.2); Basophils % (auto) 0.2 %; Eosinophils % (auto) 3.3 %; Hematocrit (blood only) 30.7 % (42-52); Hemoglobin 9.9 g/dL (14.0-18.0); Immature Granulocytes # (auto) 0.01 K/uL (0.00-0.02); Immature Granulocytes % (auto) 0.1 %; Lymphocytes # (auto) 1.23 K/uL (1.2-3.4); Lymphocytes % (auto) 13.3 %; Mean Corpuscular Hemoglobin 29.6 pg (25-34); Mean Corpuscular Hgb Conc 32.2 g/dL (32-36); Mean Corpuscular Volume 91.9 fL (80-100); Mean Platelet Volume 10.3 fL (7.4-10.4); Monocytes # (auto) 1.03 K/uL (0.11-0.59); Monocytes % (auto) 11.2 %; Neutrophils # (auto) 6.63 K/uL (1.4-6.5); Neutrophils % (auto) 71.9 %; Platelet Count 228 K/uL (130-400); RDW Coefficient of Variation 15.1 % (11.5-14.5); RDW Standard Deviation 50.8 fL (36.4-46.3); Red Blood Count 3.34 M/uL (4.7-6.1); White Blood Count 9.22 K/uL (4.8-10.8)
[2021-08-03] MEDS: ALBUTEROL 0.083% NEBU SOLN 3 ML VIAL NEB SCH ×4 (01:07→19:22)
[2021-08-03 01:18] LABS: INR 1.3 (0.9-1.1); Partial Thromboplastin Ratio 1.4; Partial Thromboplastin Time 37.9 Seconds (21.0-31.0); Prothrombin Time 13.2 Seconds (9.0-12.0)
[2021-08-03 01:39] LABS: BUN Creatinine Ratio 16.2 (10-20); Calcium 8.6 mg/dl (8.5-10.1); Creatinine Clr Calc Pharmacy 24.1 ml/min; Est GFR (African American) 17.8 ml/min; Est GFR (Non-African American) 15.3 ml/min; Magnesium 2.1 mg/dl (1.8-2.4); Potassium 3.5 mmol/L (3.5-5.1)
[2021-08-03] MEDS ORDERED: HEPARIN IV BOLUS 4,000 UNITS in SYRINGE 0 ML IV ONE (01:40)
[2021-08-03 06:46] LABS: Partial Thromboplastin Ratio 1.7; Partial Thromboplastin Time 44.8 Seconds (21.0-31.0)
[2021-08-03 07:50] LABS: Estimated Average Glucose 220 mg/dl; Hemoglobin A1C 9.3 % (4.5-5.6)
[2021-08-03] MEDS: ISOSORBIDE DINITRATE 20 MG TAB PO SCH ×3 (08:28→17:10)
[2021-08-03] MEDS: hydrALAZINE TAB 50 MG TAB PO SCH ×2 (08:28→20:21)
[2021-08-03] MEDS: METOPROLOL SUCC 50MG EXT REL TAB PO SCH ×2 (08:28→20:21)
[2021-08-03] MEDS: LEVOTHYROXINE SODIUM 112 MCG TABLET PO SCH (08:28)
[2021-08-03] MEDS: SIMVASTATIN 40 MG TAB PO SCH (08:28)
[2021-08-03] MEDS: FENOFIBRATE NANOCRYSTALLIZED 48 MG TABLET PO SCH (08:29)
[2021-08-03] MEDS: BUMETANIDE 1 MG in SYRINGE 0 ML IV SCH ×2 (08:29→17:09)
[2021-08-03] MEDS: INSULIN HUMAN NPH SC SCH ×2 (08:36→17:08)
[2021-08-03] MEDS: HEPARIN SODIUM/DEXTROSE 25,000 UNITS/500 ML BAG IV SCH ×7 (08:40→21:28)
[2021-08-03] MEDS ORDERED: Nursing to Pharmacy Communication SCH (11:45)
[2021-08-03] MEDS: DUREZOL OPL SCH ×2 (12:14→20:22)
[2021-08-03] MEDS: PROLENSA OPL SCH (12:15)
--- NOTE | 2021-08-03 13:21 | Cardiology Progress Note ---
Date of Service August 03, 2021 Assessment & Plan (1) Elevated troponin: (2) Pulmonary edema: (3) Nonischemic cardiomyopathy: (4) CKD (chronic kidney disease) stage 4, GFR 15-29 ml/min: Plan: Patient is a very complex 75-year-old male with longstanding history of nonischemic cardiomyopathy with extensive apical and septal scar by past echocardiogram and cardiac MRI. Overall LV function initially improved with biventricular pacemaker Patient presents now historically describing subacute congestive heart failure superimposed on chronic class IV renal insufficiency. Chest x-ray consistent with mild pulmonary edema. Since admission however troponins have trended upward in a crescendo decrescendo pattern concerning for myocardial ischemia. Patient however without signs or symptoms of angina or acute change Significant renal dysfunction present and would likely deteriorate with contrast administration. Echocardiogram demonstrates ejection fraction of 45% with old apical scar Recommendations we will treat congestive heart failure medically unless patient becomes unstable. Agree with IV heparin in lieu of warfarin at this time Continue IV Bumex. Appreciate input from our nephrology colleagues Given lack of symptoms at this time there is no indication for cardiac catheterization. Admission and Anticipated Discharge Date Admission Date: August 01, 2021 Subjective Patient seen and examined, chart reviewed. States he is feeling well today. Notes that breathing slowly continues to improve. Denies chest pain, palp itations, lightheadedness, dizziness or syncope. Telemetry reviewed: AV sequential pacing. Review of Systems Review of Systems: All systems reviewed & are unremarkable except as noted in HPI & below Physical Exam Physical Exam: General: Awake, alert and oriented x 3. No acute distress. HEENT: Normocephalic, atraumatic. Pupils equal, round and reactive to light and accommodation. Extraocular muscles are intact. Anicteric sclera. Moist mucous membranes. Neck: No JVD. No bruit. Cardiovascular: Regular. Positive S-4. Normal S-1 and S-2. No S-3. No murmurs or rubs. Pulmonary: Clear to auscultation B/L. No rales, rhonchi or wheezing Abdomen: Bowel sounds x 4, soft. No rebound, guarding or tenderness. No organomegaly. Extremities: No clubbing, cyanosis or edema. +2 pedal pulses bilaterally. Skin: Warm and dry. Results & Data ([facility]) Vital Signs (Past 12 Hours) Vital Signs Temp Pulse Pulse Resp BP Pulse Ox 08/03/21 11:00 36.7 C 74 17 128/67 94 08/03/21 10:40 80 08/03/21 07:18 36.6 C 74 19 122/66 91 08/03/21 07:03 73 16 96 08/03/21 03:51 36.7 C 87 17 138/73 95 (1) Pulmonary edema Chronicity: acute Qualified Code(s): J81.0 - Acute pulmonary edema
[2021-08-03] MEDS: GATIFLOXACIN OPL SCH ×2 (14:18→20:22)
[2021-08-03 16:16] LABS: Partial Thromboplastin Ratio 1.5; Partial Thromboplastin Time 38.6 Seconds (21.0-31.0)
--- NOTE | 2021-08-03 17:35 | Nephrology Progress Note ---
Date of Service August 03, 2021 Assessment & Plan (1) CKD (chronic kidney disease) stage 4, GFR 15-29 ml/min: Plan: baseline creatinine spring/summer 2020 mid to high 3's. chemistries acceptable for now; remains moderately volume overloaded but volume status improving. also with significant cardiac concerns > subacute heart failure with extensive apical, septal scar and troponin patterns concerning for myocardial ischemia. -daily bmp -cont current diuretic dosing > bumex 1 mg bid17 IV -he has historically as OP refused to discuss dialysis but may need to discuss in setting of ongiong cardiac and overload issues (2) Pulmonary edema: Plan: on bumex as above; may need to increase -low sodium diet to continue -ordered 1.5L FR (3) Nonischemic cardiomyopathy: Plan: per cardiology; focus on medical HF mgt unless he becomes unstable; continue heparin gtt Admission and Anticipated Discharge Date Admission Date: August 01, 2021 Subjective states exertional dyspnea improving when I evaluated him today at approximately 1230pm. no n/v, ongoing edema. feels overall better though. Review of Systems Review of Systems: All systems reviewed & are unremarkable except as noted in Subjective Physical Exam Constitutional: well developed, well nourished and comfortable; no acute distress Eyes: EOM intact bilaterally ENMT: Ears: no external ear abnormality Nose: no external nose abnormality Mouth: + dry oral mucous membranes Neck: no nuchal rigidity Respiratory: normal respiratory effort (on 02NC) Auscultation: + diminished lung sounds (markedly) Cardiovascular: Rate/Rhythm: regular rate and regular rhythm Heart Sounds: normal S1 and normal S2; no murmur Extremities: + edema (trace-1+ pretibial) Gastrointestinal (Abdomen): Inspection/Auscultation: normal bowel sounds Percussion/Palpation: abdomen soft; abdomen nontender Musculoskeletal: Extremities: strength 5/5 throughout and + lower leg abnormality Right (BKA) Skin: no rashes, warm and dry Neurologic: gregory, fluent speech, no tremor Psychiatric: Orientation: oriented x 3 and cooperative Results & Data ([place]) Vital Signs (Past 12 Hours) Vital Signs Temp Pulse Pulse Resp BP Pulse Ox 08/03/21 15:24 36.4 C L 84 17 148/76 H 97 08/03/21 13:22 66 16 96 08/03/21 11:00 36.7 C 74 17 128/67 94 08/03/21 10:40 80 08/03/21 07:18 36.6 C 74 19 122/66 91 08/03/21 07:03 73 16 96 Laboratory Results 08/03/21 00:54 08/03/21 00:54 (1) Pulmonary edema Chronicity: acute Qualified Code(s): J81.0 - Acute pulmonary edema
--- NOTE | 2021-08-03 20:58 | Hospitalist Progress Note ---
Date of Service August 03, 2021 Assessment & Plan (1) CHF (congestive heart failure): Plan: Acute on chronic heart failure- HFrEF - patient endorses symptoms worsening over the past 1-2 months - crackles on exam and wet productive cough - continue lasix IV - Valencia catheter placed for SUMMER as well as his dyspnea with movement - Continue metoprolol - ECHO evaluate valve function and WM - BNP 3549 - BiPAP if needed for support (2) Hypoxia: Plan: *Acute respiratory failure with hypoxia CHF Infectious cause appears to have been ruled out. - Patient feels breathing has improved since coming to [facility] -will continue to diurese. - Oxygen support for SPO2 >92% - NC/HFNC/BiPAP - Albuterol PRN - Although WBC elevated- he endorses no fever, sputum at this time not consistent with PNA - PCT 0.12- follow clinically with repeat labs in AM- If clinical picture becomes consistent with infectious etiology add ABX coverage/biofire (3) Elevated troponin: Plan: Likely type II secondary to hypoxia and volume stress - Trend ECG and Troponin I -consulted cardio: no cardiac cath is indicated at the moment due to decreased kidney function. - No CP prior to or now during admission (4) CKD (chronic kidney disease) stage 4, GFR 15-29 ml/min: Plan: Chronic- [employer] is at baseline at current - follow with diuresing (5) Biventricular ICD (implantable cardioverter-defibrillator) in place: Plan: BiV- DDDR (afib underlying) Rate 60BMP; Upper tracking 120; Upper AT 170, VF: >200 - Appropriate fire and capture on ECG (6) Atrial fibrillation: Plan: As above - continue metoprolol - Start back on Warfarin 7mg daily- INR daily (7) Hypertension: Plan: Continue Hydralazine and Metoprolol - adjustment may be needed following evaluation and diuresing - Morning medications given in the [facility] prior to admission (8) Chronic venous insufficiency: Plan: Follows with woundcare- well healed ulcerations to left leg- patient is phyllis compression stocking Admission and Anticipated Discharge Date Admission Date: August 01, 2021 Subjective Patient reports breathing better, but continues to feel short winded when walking. Patient reports he is not at his baseline. Review of Systems Review of Systems: REVIEW OF SYSTEMS: Constitutional: No fever, sweats or chills Eyes: No diplopia, no worsening or blurred vision ENT: normal hearing, no trouble swallowing Respiratory: (+) cough, sputum, dyspnea at rest or on exertion Cardiovascular: No chest pain, tightness or palpitations Abdomen: No pain, nausea, vomiting, diarrhea or constipation Musculoskeletal: No joint pain, calf pain, swelling Neurologic: No weakness, numbness/tingling, or balance problems Psychiatric: No anxiety or depression Skin: No rash or itch Physical Exam Physical Exam: General: awake, alert, no apparent distress Head: Normocephalic, atraumatic ENT: PERRL, EOMI, no pharyngeal exudate, mucous membranes moist Neuro: AAO x 3, speech clear and appropriate, strength intact bilaterally 5/5 (excluding right BKA), sensation intact and equal all extremities and dermatomes, no pronator drift Chest: equal rise and fall of the chest, scattered crackles through out with end expiratory wheeze in the bases, on 2 Liters nasal cannula Cardiac: Regular rate and rhythm, telemetry reviewed- 100% V Pace, skin warm dry, cap refill <3 seconds, peripheral pulses +2 no JVD, systollic murmur radiates to carotids, +2 edema to left lower leg up to just below the knee GI: NABS x 4 quadrants, soft, nontender to palpation, no rebound, guarding or tenderness : Spontaneously voiding, no pain, no CVA tenderness, does endorse some difficulty completely emptying bladder Extremities: Normal inspection, no peripheral edema or erythema, calfs nontender to palpation Psych: Normal mood and affect Skin: well healing venous ulcerations to left lower leg Results & Data Results & Data ([facility]) Vital Signs (Past 12 Hours) Vital Signs Temp Pulse Pulse Resp BP Pulse Ox 08/03/21 19:36 36.7 C 86 18 132/65 97 08/03/21 19:22 90 22 98 08/03/21 15:24 36.4 C L 84 17 148/76 H 97 08/03/21 13:22 66 16 96 08/03/21 11:00 36.7 C 74 17 128/67 94 08/03/21 10:40 80 PG Care Time/CCT Total # of Minutes Spent Total Time Spent with Patient: Total time spent is greater than 50% in coordination of care (as documented) at patient's floor/unit and/or counseling patient: Coding Level of Care Code 04469 Subseq Hosp Care Lvl 2 Diagnoses CHF (congestive heart failure) I50.9 Hypoxia R09.02 Elevated troponin R77.8 CKD (chronic kidney disease) stage 4, GFR 15-29 ml/min N18.4 Biventricular ICD (implantable cardioverter-defibrillator) in place Z95.810 Atrial fibrillation I48.91 Atrial fibrillation type: unspecified Hypertension I10 Hypertension type: essential hypertension Chronic venous insufficiency I87.2 Time Spent (min) 25 (1) Atrial fibrillation Atrial fibrillation type: unspecified Qualified Code(s): I48.91 - Unspecified atrial fibrillation (2) Hypertension Hypertension type: essential hypertension Qualified Code(s): I10 - Essential (primary) hypertension
[2021-08-03 23:06] LABS: Partial Thromboplastin Ratio 1.4; Partial Thromboplastin Time 37.2 Seconds (21.0-31.0)
[2021-08-04] MEDS: ALBUTEROL 0.083% NEBU SOLN 3 ML VIAL NEB SCH ×4 (00:29→20:26)
[2021-08-04] MEDS ORDERED: HEPARIN SOD (PORCINE) 1000 UNIT/ML IV ONE (03:26)
[2021-08-04] MEDS: HEPARIN SODIUM/DEXTROSE 25,000 UNITS/500 ML BAG IV SCH ×4 (04:53→22:50)
[2021-08-04 07:24] LABS: Basophils # (auto) 0.04 K/uL (0-0.2); Basophils % (auto) 0.4 %; Eosinophils # (auto) 0.63 K/uL (0-0.5); Eosinophils % (auto) 6.3 %; Hematocrit (blood only) 31.2 % (42-52); Immature Granulocytes # (auto) 0.02 K/uL (0.00-0.02); Immature Granulocytes % (auto) 0.2 %; Lymphocytes # (auto) 1.29 K/uL (1.2-3.4); Lymphocytes % (auto) 12.8 %; Mean Corpuscular Hgb Conc 32.1 g/dL (32-36); Mean Corpuscular Volume 90.4 fL (80-100); Mean Platelet Volume 10.6 fL (7.4-10.4); Monocytes # (auto) 1.15 K/uL (0.11-0.59); Monocytes % (auto) 11.4 %; Neutrophils # (auto) 6.92 K/uL (1.4-6.5); Neutrophils % (auto) 68.9 %; Platelet Count 251 K/uL (130-400); RDW Coefficient of Variation 15.3 % (11.5-14.5); RDW Standard Deviation 49.3 fL (36.4-46.3); Red Blood Count 3.45 M/uL (4.7-6.1); White Blood Count 10.05 K/uL (4.8-10.8)
[2021-08-04 07:32] LABS: INR 1.2 (0.9-1.1); Prothrombin Time 11.7 Seconds (9.0-12.0)
[2021-08-04 07:48] LABS: BUN Creatinine Ratio 17.2 (10-20); Calcium 8.6 mg/dl (8.5-10.1); Creatinine Clr Calc Pharmacy 25.7 ml/min; Est GFR (African American) 19.2 ml/min; Est GFR (Non-African American) 16.6 ml/min; Potassium 3.8 mmol/L (3.5-5.1)
[2021-08-04] MEDS: ISOSORBIDE DINITRATE 20 MG TAB PO SCH ×3 (07:58→17:17)
[2021-08-04] MEDS: INSULIN ASPART 100 UNITS/ML 3 ML PEN SC SCH ×4 (08:00→22:22)
[2021-08-04] MEDS: INSULIN HUMAN NPH SC SCH ×2 (08:01→17:16)
[2021-08-04] MEDS: hydrALAZINE TAB 50 MG TAB PO SCH ×2 (08:02→21:34)
[2021-08-04] MEDS: BUMETANIDE 1 MG in SYRINGE 0 ML IV SCH ×2 (08:02→17:15)
[2021-08-04] MEDS: METOPROLOL SUCC 50MG EXT REL TAB PO SCH ×2 (08:02→21:34)
[2021-08-04] MEDS: LEVOTHYROXINE SODIUM 112 MCG TABLET PO SCH (08:02)
[2021-08-04] MEDS: DUREZOL OPL SCH ×2 (08:03→21:35)
[2021-08-04] MEDS: GATIFLOXACIN OPL SCH ×3 (08:03→21:35)
[2021-08-04] MEDS: SIMVASTATIN 40 MG TAB PO SCH (08:03)
[2021-08-04] MEDS: PROLENSA OPL SCH (08:03)
[2021-08-04] MEDS: FENOFIBRATE NANOCRYSTALLIZED 48 MG TABLET PO SCH (08:03)
--- NOTE | 2021-08-04 08:48 | Cardiology Progress Note ---
Date of Service August 04, 2021 Assessment & Plan (1) Elevated troponin: (2) Pulmonary edema: (3) Nonischemic cardiomyopathy: (4) CKD (chronic kidney disease) stage 4, GFR 15-29 ml/min: Plan: Patient is a very complex 75-year-old male with longstanding history of nonischemic cardiomyopathy with extensive apical and septal scar by past echocardiogram and cardiac MRI. Overall LV function initially improved with biventricular pacemaker Patient presents now historically describing subacute congestive heart failure superimposed on chronic class IV renal insufficiency. Chest x-ray consistent with mild pulmonary edema. Since admission however troponins have trended upward in a crescendo decrescendo pattern concerning for myocardial ischemia. Patient however without signs or symptoms of angina or acute change Significant renal dysfunction present and would likely deteriorate with contrast administration. Echocardiogram demonstrates ejection fraction of 45% with old apical scar Recommendations we will treat congestive heart failure medically unless patient becomes unstable. Agree with IV heparin in lieu of warfarin at this time Continue IV Bumex. Appreciate input from our nephrology colleagues Given lack of symptoms at this time there is no indication for cardiac catheterization. Admission and Anticipated Discharge Date Admission Date: August 01, 2021 Subjective Pt seen and examined, chart reviewed. Review of Systems Review of Systems: All systems reviewed & are unremarkable except as noted in HPI & below Physical Exam Physical Exam: General: Awake, alert and oriented x 3. No acute distress. HEENT: Normocephalic, atraumatic. Pupils equal, round and reactive to light and accommodation. Extraocular muscles are intact. Anicteric sclera. Moist mucous membranes. Neck: No JVD. No bruit. Cardiovascular: Regular. Positive S-4. Normal S-1 and S-2. No S-3. No murmurs or rubs. Pulmonary: Clear to auscultation B/L. No rales, rhonchi or wheezing Abdomen: Bowel sounds x 4, soft. No rebound, guarding or tenderness. No organomegaly. Extremities: No clubbing, cyanosis or edema. +2 pedal pulses bilaterally. Skin: Warm and dry. Results & Data ([facility]) Vital Signs (Past 12 Hours) Vital Signs Temp Pulse Resp BP Pulse Ox 08/04/21 08:26 80 18 95 08/04/21 08:12 36.8 C 84 20 131/67 95 08/04/21 05:04 36.7 C 86 18 128/71 92 08/04/21 00:29 78 20 98 08/03/21 22:44 36.6 C 83 17 161/77 H 96 (1) Pulmonary edema Chronicity: acute Qualified Code(s): J81.0 - Acute pulmonary edema
--- NOTE | 2021-08-04 09:38 | Pharmacy Report ---
Pharmacy Glycemic Short Note 2 - Date of Service August 04, 2021 - Glycemic Short BSG Results (Last 24 hours): 08/03/21 08/03/21 08/03/21 10:58 11:15 16:02 Glucose POC Glucose 332 H* 290 H 123 H 08/03/21 08/04/21 08/04/21 20:11 06:58 07:22 Glucose 140 H POC Glucose 114 H 136 H OUTPATIENT ANTIDIABETIC REGIMEN: * Novolog 70/30: 100 units QAM, 90 units QPM * A1c 9.3% 08/03/21 ASSESSMENT: 08/04/21 * Blood sugars elevated yesterday morning, NPH increased and CF/CR tightened, great glycemic control since then, continue * Patient remains on heparin drip at 42ml/hr 08/02/21 * 75 year old male admitted with CHF, elevated troponin, on heparin drip, type 2 diabetic, uncontrolled, no basal insulin given since admitted last night, pharmacy consulted for glycemic control * Add basal insulin with NPH to match insulins in mixed insulin patient uses at home * Outpatient regimen is premixed basal/prandial insulin of Novolog 70/30 mix insulin. * Pre-mixed insulin is difficult to titrate since it is already in a fixed distribution of basal:prandial insulin. Continuing pre-mixed insulin for admission typically lead to hypoglycemia d/t changing PO status but rapid acting insulin is unable to be held. * Home regimen will be held for admission per pharmacy consult. Will utilize SQ basal bolus insulin regimen with NPH + NovoLog (CF+CR) * Tighten CF/CR * Overnight accuchecks while reaching euglycemia PLAN FOR INPATIENT GLYCEMIC CONTROL: * Hold outpatient pre-mixed insulin * Basal insulin * NPH BID with meals: * 30 units for BSG < 110 * 40 units for BSG 110-140 * 50 units for BSG > 140 * Bolus insulin * NovoLog per scale ACHS or Q6hrs while NPO * Goal Range: Low 110 mg/dL - High 140 mg/dL * Correction Factor: 10 mg/dL/unit * Nutritional / Prandial insulin per carb ratio of 1 unit per 3 grams CHO consumed PLAN FOR DISCHARGE: * to be determined
[2021-08-04 11:30] LABS: Partial Thromboplastin Ratio 1.7; Partial Thromboplastin Time 44.4 Seconds (21.0-31.0)
--- NOTE | 2021-08-04 12:43 | Nephrology Progress Note ---
Date of Service August 04, 2021 Assessment & Plan (1) CKD (chronic kidney disease) stage 4, GFR 15-29 ml/min: Plan: baseline creatinine spring/summer 2020 mid to high 3's. chemistries acceptable for now; remains moderately volume overloaded but volume status improving. also with significant cardiac concerns > subacute heart failure with extensive apical, septal scar and troponin patterns concerning for myocardial ischemia. we discussed possibility that if heart conditions worsen abruptly and he has cardiac cath his renal function may also worsen to wher ewould need decision about dialysis. he appreciated the discussion; does continue to feel that "jessica g to a center for 4 hrs 3 times a week is bullshit" and not something he'd be inclined to do; not a final decision however; he is willing to cont to discuss -daily bmp -again cont current diuretic dosing > bumex 1 mg bid17 IV -he has historically as OP refused to discuss dialysis but need to cont to discuss in setting of ongiong cardiac and overload issues (2) Pulmonary edema: Plan: on bumex as above; may need to increase -low sodium diet to continue -cont 1.5L FR (3) Nonischemic cardiomyopathy: Plan: per cardiology; focus on medical HF mgt unless he becomes unstable; continue heparin gtt (4) Goals of care, counseling/discussion: Plan: as above re dialysis -- cont to discuss; he is disinclined to do it if need arises but no final decision yet Admission and Anticipated Discharge Date Admission Date: August 01, 2021 Subjective ongoing exertional dyspnea; no orthopnea; edema not bothersome; no malaise; tolerating po Review of Systems Review of Systems: All systems reviewed & are unremarkable except as noted in Subjective Physical Exam Constitutional: well developed, well nourished, + obese and comfortable (sitting on side of bed on 02nc); no acute distress Eyes: EOM intact bilaterally ENMT: Ears: no external ear abnormality Nose: no external nose abnormality Mouth: + dry oral mucous membranes Neck: no nuchal rigidity Respiratory: normal respiratory effort (on 02NC) Auscultation: + diminished lung sounds (markedly) and + wheezes (occasional exp) Cardiovascular: Rate/Rhythm: regular rate and regular rhythm Heart Sounds: normal S1 and normal S2; no murmur Extremities: + edema (trace pretibial) Gastrointestinal (Abdomen): Inspection/Auscultation: normal bowel sounds Percussion/Palpation: abdomen soft; abdomen nontender Musculoskeletal: Extremities: strength 5/5 throughout and + lower leg abnormality (R BKA) Skin: no rashes, warm and dry Neurologic: gregory, fluent speech, no tremor Psychiatric: Orientation: oriented x 3 and cooperative Results & Data ([facility]) Vital Signs (Past 12 Hours) Vital Signs Temp Pulse Pulse Resp BP Pulse Ox 08/04/21 11:55 37.0 C 68 18 116/73 96 08/04/21 10:31 89 08/04/21 08:26 80 18 95 08/04/21 08:12 36.8 C 84 20 131/67 95 08/04/21 05:04 36.7 C 86 18 128/71 92 Laboratory Results 08/04/21 06:58 08/04/21 06:58 (1) Pulmonary edema Chronicity: acute Qualified Code(s): J81.0 - Acute pulmonary edema
[2021-08-04 18:28] LABS: Partial Thromboplastin Ratio 1.8
[2021-08-04 18:29] LABS: Partial Thromboplastin Time 46.5 Seconds (21.0-31.0)
--- NOTE | 2021-08-04 19:38 | Hospitalist Progress Note ---
Date of Service August 04, 2021 Assessment & Plan (1) CHF (congestive heart failure): Plan: Acute on chronic heart failure- HFrEF - patient endorses symptoms worsening over the past 1-2 months - decreased crackles. - continue lasix IV - 4 liters net negative - Valencia catheter placed for SUMMER as well as his dyspnea with movement - Continue metoprolol - ECHO evaluate valve function and WM - BNP 3549 - BiPAP if needed for support -will recheck labs in AM (2) Hypoxia: Plan: *Acute respiratory failure with hypoxia CHF Infectious cause appears to have been ruled out. - Patient feels breathing has improved since coming to EMD -will continue to diurese. - Oxygen support for SPO2 >92% - NC/HFNC/BiPAP - Albuterol PRN - Although WBC elevated- he endorses no fever, sputum at this time not consistent with PNA - PCT 0.12- follow clinically with repeat labs in AM- If clinical picture becomes consistent with infectious etiology add ABX coverage/biofire (3) Elevated troponin: Plan: Likely type II secondary to hypoxia and volume stress - trop peaked at 7.6 -Due to lack of symptoms and CKD, risk of cardiac cath (CKD) outweighs benefit -consulted cardio: no cardiac cath is indicated at the moment due to decreased kidney function. (4) CKD (chronic kidney disease) stage 4, GFR 15-29 ml/min: Plan: Chronic- [employer] is at baseline at current - follow with diuresing (5) Biventricular ICD (implantable cardioverter-defibrillator) in place: Plan: BiV- DDDR (afib underlying) Rate 60BMP; Upper tracking 120; Upper AT 170, VF: >200 - Appropriate fire and capture on ECG (6) Atrial fibrillation: Plan: As above - continue metoprolol - on heparin -will restart warfarin. (7) Hypertension: Plan: Continue Hydralazine and Metoprolol - adjustment may be needed following evaluation and diuresing - Morning medications given in the EMD prior to admission (8) Chronic venous insufficiency: Plan: Follows with woundcare- well healed ulcerations to left leg- patient is phyllis compression stocking Admission and Anticipated Discharge Date Admission Date: August 01, 2021 Subjective Patient reports breathing better. He has decreased SOB. Review of Systems Review of Systems: All systems reviewed & are unremarkable except as noted in HPI & below Physical Exam Physical Exam: General: awake, alert, no apparent distress Head: Normocephalic, atraumatic ENT: PERRL, EOMI, no pharyngeal exudate, mucous membranes moist Neuro: AAO x 3, speech clear and appropriate, strength intact bilaterally 5/5 (excluding right BKA), sensation intact and equal all extremities and dermatomes, no pronator drift Chest: equal rise and fall of the chest, scattered crackles through out with end expiratory wheeze in the bases, on 2 Liters nasal cannula Cardiac: Regular rate and rhythm, telemetry reviewed- 100% V Pace, skin warm dry, cap refill <3 seconds, peripheral pulses +2 no JVD, systollic murmur radiates to carotids, +2 edema to left lower leg up to just below the knee GI: NABS x 4 quadrants, soft, nontender to palpation, no rebound, guarding or tenderness : Spontaneously voiding, no pain, no CVA tenderness, does endorse some difficulty completely emptying bladder Extremities: Normal inspection, no peripheral edema or erythema, calfs nontender to palpation Psych: Normal mood and affect Skin: well healing venous ulcerations to left lower leg Results & Data Results & Data ([facility]) Vital Signs (Past 12 Hours) Vital Signs Temp Pulse Pulse Resp BP Pulse Ox 08/04/21 12:53 81 18 90 08/04/21 11:55 37.0 C 68 18 116/73 96 08/04/21 10:31 89 08/04/21 08:26 80 18 95 08/04/21 08:12 36.8 C 84 20 131/67 95 PG Care Time/CCT Total # of Minutes Spent Total Time Spent with Patient: Total time spent is greater than 50% in coordination of care (as documented) at patient's floor/unit and/or counseling p atient: Coding Level of Care Code 59555 Subseq Hosp Care Lvl 2 Diagnoses CHF (congestive heart failure) I50.9 Hypoxia R09.02 Elevated troponin R77.8 CKD (chronic kidney disease) stage 4, GFR 15-29 ml/min N18.4 Biventricular ICD (implantable cardioverter-defibrillator) in place Z95.810 Atrial fibrillation I48.91 Atrial fibrillation type: unspecified Hypertension I10 Hypertension type: essential hypertension Chronic venous insufficiency I87.2 Time Spent (min) 25 (1) Atrial fibrillation Atrial fibrillation type: unspecified Qualified Code(s): I48.91 - Unspecified atrial fibrillation (2) Hypertension Hypertension type: essential hypertension Qualified Code(s): I10 - Essential (primary) hypertension
[2021-08-05] MEDS: ALBUTEROL 0.083% NEBU SOLN 3 ML VIAL NEB SCH ×4 (00:23→20:43)
[2021-08-05 06:27] LABS: Hematocrit (blood only) 31.5 % (42-52); Hemoglobin 10.1 g/dL (14.0-18.0); Mean Corpuscular Hemoglobin 29.5 pg (25-34); Mean Corpuscular Hgb Conc 32.1 g/dL (32-36); Mean Corpuscular Volume 92.1 fL (80-100); Mean Platelet Volume 10.8 fL (7.4-10.4); Platelet Count 264 K/uL (130-400); RDW Coefficient of Variation 15.1 % (11.5-14.5); RDW Standard Deviation 51.1 fL (36.4-46.3); Red Blood Count 3.42 M/uL (4.7-6.1); White Blood Count 9.76 K/uL (4.8-10.8)
[2021-08-05 06:50] LABS: Partial Thromboplastin Ratio 1.7; Partial Thromboplastin Time 44.9 Seconds (21.0-31.0)
[2021-08-05 07:01] LABS: BUN Creatinine Ratio 16.9 (10-20); Calcium 8.9 mg/dl (8.5-10.1); Creatinine Clr Calc Pharmacy 26.6 ml/min; Est GFR (African American) 19.9 ml/min; Est GFR (Non-African American) 17.2 ml/min; Potassium 3.8 mmol/L (3.5-5.1)
[2021-08-05] MEDS: INSULIN ASPART 100 UNITS/ML 3 ML PEN SC SCH ×4 (07:48→21:22)
[2021-08-05] MEDS: hydrALAZINE TAB 50 MG TAB PO SCH ×2 (07:49→21:21)
[2021-08-05] MEDS: INSULIN HUMAN NPH SC SCH (07:49)
[2021-08-05] MEDS: FENOFIBRATE NANOCRYSTALLIZED 48 MG TABLET PO SCH (07:49)
[2021-08-05] MEDS: SIMVASTATIN 40 MG TAB PO SCH (07:49)
[2021-08-05] MEDS: LEVOTHYROXINE SODIUM 112 MCG TABLET PO SCH (07:50)
[2021-08-05] MEDS: METOPROLOL SUCC 50MG EXT REL TAB PO SCH ×2 (07:50→21:20)
[2021-08-05] MEDS: GATIFLOXACIN OPL SCH ×3 (07:51→21:27)
[2021-08-05] MEDS: PROLENSA OPL SCH (07:51)
[2021-08-05] MEDS: DUREZOL OPL SCH ×2 (07:51→21:27)
[2021-08-05] MEDS: BUMETANIDE 1 MG in SYRINGE 0 ML IV SCH ×2 (08:10→16:54)
--- NOTE | 2021-08-05 08:21 | Hospitalist Progress Note ---
Date of Service August 05, 2021 Assessment & Plan (1) CHF (congestive heart failure): Plan: Acute on chronic heart failure- HFrEF - patient endorses symptoms worsening over the past 1-2 months - decreased crackles. - continue Bumex per nephrology recommendations - -ve 700ml yesterday - Valencia catheter placed for SUMMER as well as his dyspnea with movement - Continue metoprolol - ECHO evaluate valve function and WM - BNP 3549 - BiPAP if needed for support - check BMP daily (2) Hypoxia: Plan: *Acute respiratory failure with hypoxia CHF Infectious cause ruled out - Patient feels breathing has improved since coming to ER -will continue to diurese. - Oxygen support for SPO2 >92% - NC/HFNC/BiPAP - Albuterol PRN - WBC improved without antibiotics - Procalcitonin negative (3) Elevated troponin: Plan: Likely type II secondary to hypoxia and volume stress - trop peaked at 7.6 -Due to lack of symptoms and CKD, risk of cardiac cath (CKD) outweighs benefit -consulted cardio: no cardiac cath is indicated at the moment due to decreased kidney function. (4) CKD (chronic kidney disease) stage 4, GFR 15-29 ml/min: Plan: Chronic- SEWER CONNECTOR is at baseline at current - follow with diuresing (5) Biventricular ICD (implantable cardioverter-defibrillator) in place: Plan: BiV- DDDR (afib underlying) Rate 60BMP; Upper tracking 120; Upper AT 170, VF: >200 - Appropriate fire and capture on ECG (6) Atrial fibrillation: Plan: As above - continue metoprolol - on heparin - restart warfarin 08/05 (7) Hypertension: Plan: Continue Hydralazine, Metoprolol, ISDN, diuretics as above - adjustment may be needed following evaluation and diuresing (8) Chronic venous insufficiency: Plan: Follows with wound care- well healed ulcerations to left leg- patient is phyllis compression stocking Plan: VTE Prophylaxis - IV heparin as warfarin is restarted, 10mg total today Disposition - stable for downgrade to med/surg Admission and Anticipated Discharge Date Admission Date: August 01, 2021 Subjective No acute events overnight. Reports significant improvement from admission. No chest pain. Leg edema improved. Telemetry: SR, paced, pAT (6 beats) Review of Systems Review of Systems: All systems reviewed & are unremarkable except as noted in HPI & below Physical Exam Constitutional: well developed, well nourished, + obese and comfortable (sitting on side of bed on RA); no acute distress ENMT: Mouth: oral mucous membranes not dry Respiratory: normal respiratory effort Auscultation: + diminished lung sounds (bibasal); no wheezes Cardiovascular: Rate/Rhythm: regular rate and regular rhythm Heart Sounds: normal S1 and normal S2; no murmur Extremities: + edema (trace pretibial) Gastrointestinal (Abdomen): Inspection/Auscultation: normal bowel sounds Percussion/Palpation: abdomen soft; abdomen nontender Musculoskeletal: Extremities: strength 5/5 throughout and + lower leg abnormality (R BKA) Skin: no rashes, warm and dry Psychiatric: Orientation: alert and oriented x 3 Results & Data Results & Data ([facility]) Vital Signs (Past 12 Hours) Vital Signs Temp Pulse Pulse Resp BP Pulse Ox 08/05/21 07:46 36.7 C 84 18 137/69 90 08/05/21 03:50 37.0 C 85 19 135/75 97 08/05/21 00:23 88 18 94 08/04/21 22:53 36.9 C 66 19 134/81 93 08/04/21 20:28 77 18 94 PG Care Time/CCT Total # of Minutes Spent Total Time Spent with Patient: Total time spent is greater than 50% in coordination of care (as documented) at patient's floor/unit and/or counseling patient: Coding Level of Care Code 91613 Subseq Hosp Care Lvl 2 Diagnoses CHF (congestive heart failure) I50.9 Hypoxia R09.02 Elevated troponin R77.8 CKD (chronic kidney disease) stage 4, GFR 15-29 ml/min N18.4 Biventricular ICD (implantable cardioverter-defibrillator) in place Z95.810 Atrial fibrillation I48.91 Atrial fibrillation type: unspecified Hypertension I10 Hypertension type: essential hypertension Chronic venous insufficiency I87.2 (1) Atrial fibrillation Atrial fibrillation type: unspecified Qualified Code(s): I48.91 - Unspecified atrial fibrillation (2) Hypertension Hypertension type: essential hypertension Qualified Code(s): I10 - Essential (primary) hypertension
[2021-08-05] MEDS: ISOSORBIDE DINITRATE 20 MG TAB PO SCH ×3 (08:26→17:24)
--- NOTE | 2021-08-05 08:57 | Pharmacy Report ---
Pharmacy Glycemic Short Note 2 - Date of Service August 05, 2021 - Glycemic Short BSG Results (Last 24 hours): 08/04/21 08/04/21 08/04/21 11:31 13:38 16:35 Glucose POC Glucose 117 H 76 102 H 08/04/21 08/05/21 08/05/21 20:11 05:54 07:28 Glucose 121 H POC Glucose 121 H 137 H OUTPATIENT ANTIDIABETIC REGIMEN: * Novolog 70/30: 100 units QAM, 90 units QPM * A1c 9.3% 08/03/21 ASSESSMENT: 08/05/21 * Patient's BSGs yesterday were [phone] mg/dL and fasting today is 137 mg/dL. * Patient received 115 units of insulin yesterday (70 units of basal and 45 units of bolus). * Will decrease fasting to 60 units per day with 2/3 of dose in morning. This is due to 102 mg/dL at dinnertime reflecting aggressive morning NPH. * Loosen Novolog as BSGs trending downwards. * Patient continues on heparin drip at 46 units/hr 08/04/21 * Blood sugars elevated yesterday morning, NPH increased and CF/CR tightened, great glycemic control since then, continue * Patient remains on heparin drip at 42ml/hr 08/02/21 * 75 year old male admitted with CHF, elevated troponin, on heparin drip, type 2 diabetic, uncontrolled, no basal insulin given since admitted last night, pharmacy consulted for glycemic control * Add basal insulin with NPH to match insulins in mixed insulin patient uses at home * Outpatient regimen is premixed basal/prandial insulin of Novolog 70/30 mix insulin. * Pre-mixed insulin is difficult to titrate since it is already in a fixed distribution of basal:prandial insulin. Continuing pre-mixed insulin for admission typically lead to hypoglycemia d/t changing PO status but rapid acting insulin is unable to be held. * Home regimen will be held for admission per pharmacy consult. Will utilize SQ basal bolus insulin regimen with NPH + NovoLog (CF+CR) * Tighten CF/CR * Overnight accuchecks while reaching euglycemia PLAN FOR INPATIENT GLYCEMIC CONTROL: * Hold outpatient pre-mixed insulin * Basal insulin * NPH 35 units SQ with breakfast and 25 units with dinner * Bolus insulin * NovoLog per scale ACHS or Q6hrs while NPO * Goal Range: Low 110 mg/dL - High 140 mg/dL * Correction Factor: 12 mg/dL/unit * Nutritional / Prandial insulin per carb ratio of 1 unit per 4 grams CHO consumed PLAN FOR DISCHARGE: * HbA1C currently is above goal but is improved compared to December of this year. Currently HbA1C = 9.3% with goal of ~8%. * Recommend continuing to check BSGs at least one time per day and titrating insulin with outpatient provider.
[2021-08-05] MEDS: HEPARIN SODIUM/DEXTROSE 25,000 UNITS/500 ML BAG IV SCH ×3 (09:20→20:38)
[2021-08-05 13:39] LABS: Partial Thromboplastin Ratio 1.7; Partial Thromboplastin Time 44.9 Seconds (21.0-31.0)
[2021-08-05] MEDS ORDERED: WARFARIN SOD 5 MG TAB PO SCH (16:00)
[2021-08-05] MEDS ORDERED: WARFARIN SOD 2 MG TAB PO SCH (16:00)
[2021-08-05] MEDS ORDERED: INSULIN HUMAN NPH SC SCH (16:30)
[2021-08-05] MEDS ORDERED: WARFARIN SOD 3 MG TAB PO ONE (16:34)
--- NOTE | 2021-08-05 18:41 | Nephrology Progress Note ---
Date of Service August 05, 2021 Assessment & Plan (1) CKD (chronic kidney disease) stage 4, GFR 15-29 ml/min: Plan: baseline creatinine spring/summer 2020 mid to high 3's. chemistries acceptable still; remains moderately volume overloaded but volume status improving. also with significant cardiac concerns > subacute heart failure with extensive apical, septal scar and troponin patterns concerning for myocardial ischemia. we have this admission discussed possibility that if heart conditions worsen abruptly and he has cardiac cath his renal function may also worsen to where would need decision about dialysis. he appreciated the discussion; does continue to feel that "going to a center for 4 hrs 3 times a week is bullshit" and not something he'd be inclined to do; not a final decision however; he is willing to cont to discuss -daily bmp -cont current diuretic dosing > bumex 1 mg bid17 IV -he has historically refused to discuss dialysis but need to cont to discuss in setting of ongiong cardiac and overload issues (2) Pulmonary edema: Plan: on bumex as above; may need to increase -low sodium diet to continue -cont 1.5L FR (3) Nonischemic cardiomyopathy: Plan: per cardiology; focus on medical HF mgt unless he becomes unstable; continue heparin gtt Admission and Anticipated Discharge Date Admission Date: August 01, 2021 Subjective no overnight events; feels breathing/edema unchanged or slightly better Review of Systems Review of Systems: All systems reviewed & are unremarkable except as noted in Subjective Physical Exam Constitutional: well developed, well nourished, + obese and comfortable (sitting on side of bed on RA); no acute distress Eyes: EOM intact bilaterally ENMT: Ears: no external ear abnormality Nose: no external nose abnormality Mouth: + dry oral mucous membranes Neck: no nuchal rigidity Respiratory: normal respiratory effort (on 02NC) Auscultation: + diminished lung sounds (markedly) and + wheezes (occasional exp) Cardiovascular: Rate/Rhythm: regular rate and regular rhythm Heart Sounds: normal S1 and normal S2; no murmur Extremities: + edema (trace pretibial) Gastrointestinal (Abdomen): Inspection/Auscultation: normal bowel sounds Percussion/Palpation: abdomen soft; abdomen nontender Musculoskeletal: Extremities: strength 5/5 throughout and + lower leg abnormality (R BKA) Skin: no rashes, warm and dry Psychiatric: Orientation: oriented x 3 and cooperative Results & Data ([facility]) Vital Signs (Past 12 Hours) Vital Signs Temp Pulse Pulse Pulse Resp BP Pulse Ox 08/05/21 15:05 36.8 C 98 H 20 116/80 92 08/05/21 14:05 79 18 96 08/05/21 11:53 36.5 C 85 20 125/63 98 08/05/21 08:00 79 08/05/21 07:46 36.7 C 84 18 137/69 90 Laboratory Results 08/05/21 05:54 08/05/21 05:54 (1) Pulmonary edema Chronicity: acute Qualified Code(s): J81.0 - Acute pulmonary edema
[2021-08-05] MEDS: SENNA 8.6 MG TAB PO SCH (21:21)
[2021-08-06] MEDS: ALBUTEROL 0.083% NEBU SOLN 3 ML VIAL NEB SCH ×4 (00:26→19:34)
[2021-08-06] MEDS: ACETAMINOPHEN 325 MG TAB PO PRN ×2 (06:16→13:32)
[2021-08-06] MEDS: ISOSORBIDE DINITRATE 20 MG TAB PO SCH ×3 (06:19→16:46)
[2021-08-06] MEDS: HEPARIN SODIUM/DEXTROSE 25,000 UNITS/500 ML BAG IV SCH ×2 (07:01→17:04)
[2021-08-06 07:19] LABS: INR 1.1 (0.9-1.1); Partial Thromboplastin Ratio 1.9; Prothrombin Time 10.9 Seconds (9.0-12.0)
[2021-08-06 07:39] LABS: Partial Thromboplastin Time 50.1 Seconds (21.0-31.0)
[2021-08-06] MEDS: METOPROLOL SUCC 50MG EXT REL TAB PO SCH ×2 (09:04→20:22)
[2021-08-06] MEDS: SIMVASTATIN 40 MG TAB PO SCH (09:04)
[2021-08-06] MEDS: hydrALAZINE TAB 50 MG TAB PO SCH ×2 (09:04→20:22)
[2021-08-06] MEDS: BUMETANIDE 1 MG in SYRINGE 0 ML IV SCH ×2 (09:04→16:46)
[2021-08-06] MEDS: LEVOTHYROXINE SODIUM 112 MCG TABLET PO SCH (09:04)
[2021-08-06] MEDS: FENOFIBRATE NANOCRYSTALLIZED 48 MG TABLET PO SCH (09:04)
[2021-08-06] MEDS: INSULIN ASPART 100 UNITS/ML 3 ML PEN SC SCH ×4 (09:05→21:03)
[2021-08-06] MEDS: INSULIN HUMAN NPH SC SCH (09:05)
[2021-08-06] MEDS: PROLENSA OPL SCH (09:07)
[2021-08-06] MEDS: GATIFLOXACIN OPL SCH ×3 (09:07→20:24)
[2021-08-06] MEDS: DUREZOL OPL SCH ×2 (09:07→20:24)
--- NOTE | 2021-08-06 12:17 | Hospitalist Progress Note ---
Date of Service August 06, 2021 Assessment & Plan (1) CHF (congestive heart failure): Plan: Acute on chronic heart failure- HFrEF - patient endorses symptoms worsening over the past 1-2 months - decreased crackles. - continue Bumex per nephrology recommendations - -ve 400ml yesterday - Valencia catheter placed for SUMMER as well as his dyspnea with movement - Continue metoprolol - ECHO evaluate valve function and WM - BNP 3549 - BiPAP if needed for support - check BMP daily (2) Hypoxia: Plan: *Acute respiratory failure with hypoxia CHF Infectious cause ruled out - Patient feels breathing has improved since coming to ER -will continue to diurese. - Oxygen support for SPO2 >92% - NC/HFNC/BiPAP - Albuterol PRN - WBC improved without antibiotics - Procalcitonin negative (3) Elevated troponin: Plan: Likely type II secondary to hypoxia and volume stress - trop peaked at 7.6 -Due to lack of symptoms and CKD, risk of cardiac cath (CKD) outweighs benefit -consulted cardio: no cardiac cath is indicated at the moment due to decreased kidney function. 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 at current - follow with diuresing (5) Biventricular ICD (implantable cardioverter-defibrillator) in place: Plan: BiV- DDDR (afib underlying) Rate 60BMP; Upper tracking 120; Upper AT 170, VF: >200 - Appropriate fire and capture on ECG (6) Atrial fibrillation: Plan: As above - continue metoprolol - on heparin - restart warfarin 08/05 (7) Hypertension: Plan: Continue Hydralazine, Metoprolol, ISDN, diuretics as above - adjustment may be needed following evaluation and diuresing (8) Chronic venous insufficiency: Plan: Follows with wound care- well healed ulcerations to left leg- patient is phyllis compression stocking Plan: VTE Prophylaxis - IV heparin as warfarin is restarted, 10mg warfarin started 08/05 Disposition - continue on med/surg Admission and Anticipated Discharge Date Admission Date: August 01, 2021 Subjective No acute events overnight. Eating and drinking well. Feels closer to his baseline. Edema improving. No chest pain, abdominal pain, diarrhea, fever or chills. Review of Systems Review of Systems: All systems reviewed & are unremarkable except as noted in HPI & below Physical Exam Constitutional: well developed, well nourished, + obese and comfortable (sitting on side of bed on RA); no acute distress ENMT: Mouth: oral mucous membranes not dry Respiratory: normal respiratory effort Auscultation: + diminished lung sounds (bibasal); no wheezes Cardiovascular: Rate/Rhythm: regular rate and regular rhythm Heart Sounds: normal S1 and normal S2; no murmur Extremities: + edema (trace pretibial) Gastrointestinal (Abdomen): Inspection/Auscultation: normal bowel sounds Percussion/Palpation: abdomen soft; abdomen nontender Musculoskeletal: Extremities: strength 5/5 throughout and + lower leg abnormality (R BKA) Skin: no rashes, warm and dry Psychiatric: Orientation: alert and oriented x 3 Results & Data Results & Data ([facility]) Vital Signs (Past 12 Hours) Vital Signs Temp Pulse Resp BP Pulse Ox 08/06/21 07:41 36.7 C 75 20 113/62 97 08/06/21 07:28 76 20 91 08/06/21 00:26 77 18 96 PG Care Time/CCT Total # of Minutes Spent Total Time Spent with Patient: Total time spent is greater than 50% in coordination of care (as documented) at patient's floor/unit and/or counseling patient: Coding Level of Care Code 43229 Subseq Hosp Care Lvl 2 Diagnoses CHF (congestive heart failure) I50.9 Hypoxia R09.02 Elevated troponin R77.8 CKD (chronic kidney disease) stage 4, GFR 15-29 ml/min N18.4 Biventricular ICD (implantable cardioverter-defibrillator) in place Z95.810 Atrial fibrillation I48.91 Atrial fibrillation type: unspecified Hypertension I10 Hypertension type: essential hypertension Chronic venous insufficiency I87.2 (1) Atrial fibrillation Atrial fibrillation type: unspecified Qualified Code(s): I48.91 - Unspecified atrial fibrillation (2) Hypertension Hypertension type: essential hypertension Qualified Code(s): I10 - Essential (primary) hypertension
--- NOTE | 2021-08-06 14:26 | Cardiology Progress Note ---
Date of Service August 06, 2021 Assessment & Plan (1) Elevated troponin: (2) Pulmonary edema: (3) Nonischemic cardiomyopathy: (4) CKD (chronic kidney disease) stage 4, GFR 15-29 ml/min: Plan: Patient is a very complex 75-year-old male with longstanding history of nonischemic cardiomyopathy with extensive apical and septal scar by past echocardiogram and cardiac MRI. Overall LV function initially improved with biventricular pacemaker Patient presents now historically describing subacute congestive heart failure superimposed on chronic class IV renal insufficiency. Chest x-ray consistent with mild pulmonary edema. Since admission however troponins have trended upward in a crescendo decrescendo pattern concerning for myocardial ischemia. Patient however without signs or symptoms of angina or acute change Significant renal dysfunction present and would likely deteriorate with contrast administration. Echocardiogram demonstrates ejection fraction of 45% with old apical scar Recommendations we will treat congestive heart failure medically unless patient becomes unstable. Coumadin restarted continue heparin until INR therapeutic. Continue IV Bumex. Appreciate input from our nephrology colleagues Given lack of symptoms at this time there is no indication for cardiac catheterization. Admission and Anticipated Discharge Date Admission Date: August 01, 2021 Subjective Patient seen and examined, chart reviewed. States that he is doing rather well today. Notices that edema is improving. Urinating without limitation at this time. Denies chest pain, palpitations, lightheadedness, dizziness or syncope. Physical Exam Physical Exam: General: Awake, alert and oriented x 3. No acute distress. HEENT: Normocephalic, atraumatic. Pupils equal, round and reactive to light and accommodation. Extraocular muscles are intact. Anicteric sclera. Moist mucous membranes. Neck: No JVD. No bruit. Cardiovascular: Regular. Positive S-4. Normal S-1 and S-2. No S-3. No murmurs or rubs. Pulmonary: Clear to auscultation B/L. No rales, rhonchi or wheezing Abdomen: Bowel sounds x 4, soft. No rebound, guarding or tenderness. No organomegaly. Extremities: No clubbing, cyanosis or edema. +2 pedal pulses bilaterally. Skin: Warm and dry. Results & Data ([facility]) Vital Signs (Past 12 Hours) Vital Signs Temp Pulse Resp BP Pulse Ox 08/06/21 12:44 79 18 97 08/06/21 07:41 36.7 C 75 20 113/62 97 08/06/21 07:28 76 20 91 (1) Pulmonary edema Chronicity: acute Qualified Code(s): J81.0 - Acute pulmonary edema
--- NOTE | 2021-08-06 14:47 | Pharmacy Report ---
Pharmacy Glycemic Short Note 2 - Date of Service August 06, 2021 - Glycemic Short BSG Results (Last 24 hours): 08/05/21 08/05/21 08/05/21 15:04 17:24 20:40 POC Glucose 88 145 H 135 H 08/06/21 08/06/21 08:28 12:03 POC Glucose 152 H 251 H OUTPATIENT ANTIDIABETIC REGIMEN: * Novolog 70/30: 100 units QAM, 90 units QPM * A1c 9.3% 08/03/21 ASSESSMENT: 08/06: * Patient received total 107 units of insulin yesterday; 55 units basal and 52 units bolus. * Fasting BSG was 152 mg/dl, which is higher than last couple of days. Increased dinner time NPH dose. * Post-prandial BSGs were at goal yesterday. Pre-lunch BSG elevated at 251 mg/dl. Continue current parameters for Novolog. * Possibly may need to increase AM NPH dose tomorrow if BSGs trend up tonight. 08/05/21 * Patient's BSGs yesterday were [phone] mg/dL and fasting today is 137 mg/dL. * Patient received 115 units of insulin yesterday (70 units of basal and 45 units of bolus). * Will decrease fasting to 60 units per day with 2/3 of dose in morning. This is due to 102 mg/dL at dinnertime reflecting aggressive morning NPH. * Loosen Novolog as BSGs trending downwards. * Patient continues on heparin drip at 46 units/hr 08/04/21 * Blood sugars elevated yesterday morning, NPH increased and CF/CR tightened, great glycemic control since then, continue * Patient remains on heparin drip at 42ml/hr 08/02/21 * 75 year old male admitted with CHF, elevated troponin, on heparin drip, type 2 diabetic, uncontrolled, no basal insulin given since admitted last night, pharmacy consulted for glycemic control * Add basal insulin with NPH to match insulins in mixed insulin patient uses at home * Outpatient regimen is premixed basal/prandial insulin of Novolog 70/30 mix insulin. * Pre-mixed insulin is difficult to titrate since it is already in a fixed distribution of basal:prandial insulin. Continuing pre-mixed insulin for admission typically lead to hypoglycemia d/t changing PO status but rapid acting insulin is unable to be held. * Home regimen will be held for admission per pharmacy consult. Will utilize SQ basal bolus insulin regimen with NPH + NovoLog (CF+CR) * Tighten CF/CR * Overnight accuchecks while reaching euglycemia PLAN FOR INPATIENT GLYCEMIC CONTROL: * Hold outpatient pre-mixed insulin * Basal insulin * NPH 35 units SQ with breakfast and 25 units with dinner * Bolus insulin * NovoLog per scale ACHS or Q6hrs while NPO * Goal Range: Low 110 mg/dL - High 140 mg/dL * Correction Factor: 12 mg/dL/unit * Nutritional / Prandial insulin per carb ratio of 1 unit per 4 grams CHO consumed PLAN FOR DISCHARGE: * HbA1C currently is above goal but is improved compared to December of this year. Currently HbA1C = 9.3% with goal of ~8%. * Recommend continuing to check BSGs at least one time per day and titrating insulin with outpatient provider.
[2021-08-06] MEDS ORDERED: INSULIN HUMAN NPH SC SCH (16:30)
[2021-08-06 16:44] LABS: BUN Creatinine Ratio 16.6 (10-20); Calcium 8.6 mg/dl (8.5-10.1); Creatinine Clr Calc Pharmacy 25.7 ml/min; Est GFR (African American) 19.1 ml/min; Est GFR (Non-African American) 16.5 ml/min
[2021-08-06] MEDS: WARFARIN SOD 10 MG TAB PO SCH (16:46)
[2021-08-06] MEDS: SENNA 8.6 MG TAB PO SCH (20:23)
[2021-08-07] MEDS: ALBUTEROL 0.083% NEBU SOLN 3 ML VIAL NEB SCH ×4 (00:36→20:22)
[2021-08-07] MEDS: HEPARIN SODIUM/DEXTROSE 25,000 UNITS/500 ML BAG IV SCH ×2 (03:29→14:07)
[2021-08-07] MEDS: ISOSORBIDE DINITRATE 20 MG TAB PO SCH ×3 (05:45→18:33)
[2021-08-07 07:15] LABS: INR 1.2 (0.9-1.1); Partial Thromboplastin Ratio 1.9; Prothrombin Time 11.9 Seconds (9.0-12.0)
[2021-08-07 07:18] LABS: Partial Thromboplastin Time 49.5 Seconds (21.0-31.0)
[2021-08-07 07:24] LABS: BUN Creatinine Ratio 16.2 (10-20); Creatinine Clr Calc Pharmacy 24.2 ml/min; Est GFR (African American) 17.8 ml/min; Est GFR (Non-African American) 15.3 ml/min; Potassium 4.1 mmol/L (3.5-5.1)
--- NOTE | 2021-08-07 08:51 | Pharmacy Report ---
Pharmacy Glycemic Short Note 2 - Date of Service August 07, 2021 - Glycemic Short BSG Results (Last 24 hours): 08/06/21 08/06/21 08/06/21 12:03 16:19 17:25 Glucose 137 H POC Glucose 251 H 104 H 08/06/21 08/07/21 08/07/21 20:32 06:16 08:29 Glucose 173 H POC Glucose 117 H 199 H OUTPATIENT ANTIDIABETIC REGIMEN: * Novolog 70/30: 100 units QAM, 90 units QPM * A1c 9.3% 08/03/21 ASSESSMENT: 08/05/21 * Patient's BSGs yesterday were [phone] mg/dL and fasting today is 199 mg/dL. * Patient received 96 units of insulin yesterday (60 units of basal and 36 units of bolus- currently at 60/40 split which mimics home regimen). * Continue morning NPH dose as dinner BSG good. Increase evening NPH as fasting continues to trend upwards. * Continue Novolog as BSGs stable. * Patient continues on heparin drip at 46 units/hr 08/06: * Patient received total 107 units of insulin yesterday; 55 units basal and 52 units bolus. * Fasting BSG was 152 mg/dl, which is higher than last couple of days. Increased dinner time NPH dose. * Post-prandial BSGs were at goal yesterday. Pre-lunch BSG elevated at 251 mg/dl. Continue current parameters for Novolog. * Possibly may need to increase AM NPH dose tomorrow if BSGs trend up tonight. 08/05/21 * Patient's BSGs yesterday were [phone] mg/dL and fasting today is 137 mg/dL. * Patient received 115 units of insulin yesterday (70 units of basal and 45 units of bolus). * Will decrease fasting to 60 units per day with 2/3 of dose in morning. This is due to 102 mg/dL at dinnertime reflecting aggressive morning NPH. * Loosen Novolog as BSGs trending downwards. * Patient continues on heparin drip at 46 units/hr 08/04/21 * Blood sugars elevated yesterday morning, NPH increased and CF/CR tightened, great glycemic control since then, continue * Patient remains on heparin drip at 42ml/hr 08/02/21 * 75 year old male admitted with CHF, elevated troponin, on heparin drip, type 2 diabetic, uncontrolled, no basal insulin given since admitted last night, pharmacy consulted for glycemic control * Add basal insulin with NPH to match insulins in mixed insulin patient uses at home * Outpatient regimen is premixed basal/prandial insulin of Novolog 70/30 mix insulin. * Pre-mixed insulin is difficult to titrate since it is already in a fixed distribution of basal:prandial insulin. Continuing pre-mixed insulin for admission typically lead to hypoglycemia d/t changing PO status but rapid acting insulin is unable to be held. * Home regimen will be held for admission per pharmacy consult. Will utilize SQ basal bolus insulin regimen with NPH + NovoLog (CF+CR) * Tighten CF/CR * Overnight accuchecks while reaching euglycemia PLAN FOR INPATIENT GLYCEMIC CONTROL: * Hold outpatient pre-mixed insulin * Basal insulin * NPH 35 units SQ with breakfast and 35 units with dinner * Bolus insulin * NovoLog per scale ACHS or Q6hrs while NPO * Goal Range: Low 110 mg/dL - High 140 mg/dL * Correction Factor: 12 mg/dL/unit * Nutritional / Prandial insulin per carb ratio of 1 unit per 4 grams CHO consumed PLAN FOR DISCHARGE: * HbA1C currently is above goal but is improved compared to December of this year. Currently HbA1C = 9.3% with goal of ~8%. * Recommend continuing to check BSGs at least one time per day and titrating insulin with outpatient provider. * Per data communications analyst note, could consider GLP-1 to help decrease insulin burden.
[2021-08-07] MEDS: INSULIN ASPART 100 UNITS/ML 3 ML PEN SC SCH ×4 (09:52→20:23)
[2021-08-07] MEDS: INSULIN HUMAN NPH SC SCH (09:53)
[2021-08-07] MEDS: BUMETANIDE 1 MG in SYRINGE 0 ML IV SCH ×2 (09:57→18:33)
[2021-08-07] MEDS: FENOFIBRATE NANOCRYSTALLIZED 48 MG TABLET PO SCH (09:58)
[2021-08-07] MEDS: hydrALAZINE TAB 50 MG TAB PO SCH ×2 (09:58→20:17)
[2021-08-07] MEDS: LEVOTHYROXINE SODIUM 112 MCG TABLET PO SCH (09:58)
[2021-08-07] MEDS: SIMVASTATIN 40 MG TAB PO SCH (09:59)
[2021-08-07] MEDS: METOPROLOL SUCC 50MG EXT REL TAB PO SCH ×2 (09:59→20:18)
[2021-08-07] MEDS: PROLENSA OPL SCH (10:04)
[2021-08-07] MEDS: DUREZOL OPL SCH ×2 (10:04→18:39)
[2021-08-07] MEDS: GATIFLOXACIN OPL SCH ×3 (10:04→18:39)
[2021-08-07] MEDS ORDERED: INSULIN HUMAN NPH SC SCH (16:30)
--- NOTE | 2021-08-07 16:57 | Nephrology Progress Note ---
Date of Service August 07, 2021 Assessment & Plan (1) CKD (chronic kidney disease) stage 4, GFR 15-29 ml/min: Plan: baseline creatinine spring/summer 2020 mid to high 3's. chemistries acceptable still; remains moderately volume overloaded but volume status improving. also with significant cardiac concerns > subacute heart failure with extensive apical, septal scar and troponin patterns concerning for myocardial ischemia. we have this admission discussed possibility that if heart conditions worsen abruptly and he has cardiac cath his renal function may also worsen to where would need decision about dialysis. he appreciated the discussion; does continue to feel that "going to a center for 4 hrs 3 times a week is bullshit" and not something he'd be inclined to do; not a final decision however; he is willing to cont to discuss -daily bmp -cont current diuretic dosing > bumex 1 mg bid17 IV; would not increase -he has historically refused to discuss dialysis but need to cont to discuss in setting of ongiong cardiac and overload issues (2) Pulmonary edema: Plan: on bumex as above; may need to increase -low sodium diet to continue -cont 1.5L FR (3) Nonischemic cardiomyopathy: Plan: per cardiology; focus on medical HF mgt unless he becomes unstable; continue heparin gtt until INR at goal Admission and Anticipated Discharge Date Admission Date: August 01, 2021 Subjective no interval events; still marked exertional dsypnea; rest of 8 system review otherwise neg Physical Exam Constitutional: well developed, well nourished, + obese and comfortable (sitting on side of bed on RA); no acute distress Eyes: EOM intact bilaterally ENMT: Ears: no external ear abnormality Nose: no external nose abnormality Mouth: + dry oral mucous membranes Neck: no nuchal rigidity Respiratory: normal respiratory effort (on 02NC) Auscultation: + diminished lung sounds (markedly) and + wheezes (occasional exp) Cardiovascular: Rate/Rhythm: regular rate and regular rhythm Heart Sounds: normal S1 and normal S2; no murmur Extremities: + edema (trace pretibial) Gastrointestinal (Abdomen): Inspection/Auscultation: normal bowel sounds Percussion/Palpation: abdomen soft; abdomen nontender Musculoskeletal: Extremities: strength 5/5 throughout and + lower leg abnormality (R BKA) Skin: no rashes, warm and dry Psychiatric: Orientation: oriented x 3 and cooperative Results & Data ([facility]) Vital Signs (Past 12 Hours) Vital Signs Temp Pulse Resp BP Pulse Ox 08/07/21 16:07 36.8 C 77 16 143/73 H 95 08/07/21 12:55 82 18 95 08/07/21 07:32 78 18 94 08/07/21 07:25 36.8 C 81 16 142/80 H 93 Laboratory Results 08/05/21 05:54 08/07/21 06:16 (1) Pulmonary edema Chronicity: acute Qualified Code(s): J81.0 - Acute pulmonary edema
[2021-08-07] MEDS: WARFARIN SOD 10 MG TAB PO SCH (18:32)
[2021-08-07] MEDS: SENNA 8.6 MG TAB PO SCH (20:17)
--- NOTE | 2021-08-07 23:51 | Hospitalist Progress Note ---
Date of Service August 07, 2021 Assessment & Plan (1) CHF (congestive heart failure): Plan: Acute on chronic heart failure- HFrEF - patient endorses symptoms worsening over the past 1-2 months - decreased crackles. - continue diuretics per nephrology recommendations - -ve 530ml yesterday - Valencia catheter placed for SUMMER as well as his dyspnea with movement - Continue metoprolol - ECHO evaluate valve function and WM - BNP 3549 - BiPAP if needed for support - check BMP daily (2) Hypoxia: Plan: *Acute respiratory failure with hypoxia CHF Infectious cause ruled out - Patient feels breathing has improved since coming to ER -will continue to diurese. - Oxygen support for SPO2 >92% - NC/HFNC/BiPAP - Albuterol PRN - WBC improved without antibiotics - Procalcitonin negative (3) Elevated troponin: Plan: Likely type II secondary to hypoxia and volume stress - trop peaked at 7.6 -Due to lack of symptoms and CKD, risk of cardiac cath (CKD) outweighs benefit -consulted cardio: no cardiac cath is indicated at the moment due to decreased kidney function. 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 but trending up last few days - follow with diuresing (5) Biventricular ICD (implantable cardioverter-defibrillator) in place: Plan: BiV- DDDR (afib underlying) Rate 60BMP; Upper tracking 120; Upper AT 170, VF: >200 - Appropriate fire and capture on ECG (6) Atrial fibrillation: Plan: As above - continue metoprolol - on heparin - restarted warfarin 08/05 (7) Hypertension: Plan: Continue Hydralazine, Metoprolol, ISDN, diuretics as above - adjustment may be needed following evaluation and diuresing (8) Chronic venous insufficiency: Plan: Follows with wound care- well healed ulcerations to left leg- patient is phyllis compression stocking Plan: VTE Prophylaxis - IV heparin as warfarin is restarted, 10mg warfarin started 08/05, INR 1.2 Disposition - continue on med/surg Admission and Anticipated Discharge Date Admission Date: August 01, 2021 Subjective No chest pain but still very short of breath on exertion. He does feel he is improving however. Leg swelling at baseline. No palpitations. Review of Systems Review of Systems: All systems reviewed & are unremarkable except as noted in HPI & below Physical Exam Constitutional: well developed, well nourished and + obese; no acute distress ENMT: Mouth: oral mucous membranes not dry Respiratory: normal respiratory effort Auscultation: + diminished lung sounds (bibasal); no wheezes Cardiovascular: Rate/Rhythm: regular rate and regular rhythm Heart Sounds: normal S1 and normal S2; no murmur Extremities: + edema (trace pretibial) Gastrointestinal (Abdomen): Inspection/Auscultation: normal bowel sounds Percussion/Palpation: abdomen soft; abdomen nontender Musculoskeletal: Extremities: strength 5/5 throughout and + lower leg abnormality (R BKA) Skin: no rashes, warm and dry Psychiatric: Orientation: alert and oriented x 3 Results & Data Results & Data ([facility]) Vital Signs (Past 12 Hours) Vital Signs Temp Pulse Resp BP Pulse Ox 08/07/21 22:35 36.7 C 84 18 128/70 94 08/07/21 20:22 76 18 95 08/07/21 20:15 75 131/67 95 08/07/21 16:07 36.8 C 77 16 143/73 H 95 08/07/21 12:55 82 18 95 PG Care Time/CCT Total # of Minutes Spent Total Time Spent with Patient: Total time spent is greater than 50% in coordination of care (as documented) at patient's floor/unit and/or counseling patient: Coding Level of Care Code 08260 Subseq Hosp Care Lvl 2 Diagnoses CHF (congestive heart failure) I50.9 Hypoxia R09.02 Elevated troponin R77.8 CKD (chronic kidney disease) stage 4, GFR 15-29 ml/min N18.4 Biventricular ICD (implantable cardioverter-defibrillator) in place Z95.810 Atrial fibrillation I48.91 Atrial fibrillation type: unspecified Hypertension I10 Hypertension type: essential hypertension Chronic venous insufficiency I87.2 (1) Atrial fibrillation Atrial fibrillation type: unspecified Qualified Code(s): I48.91 - Unspecified atrial fibrillation (2) Hypertension Hypertension type: essential hypertension Qualified Code(s): I10 - Essential (primary) hypertension
[2021-08-08] MEDS: HEPARIN SODIUM/DEXTROSE 25,000 UNITS/500 ML BAG IV SCH ×3 (01:01→22:49)
[2021-08-08] MEDS: ALBUTEROL 0.083% NEBU SOLN 3 ML VIAL NEB SCH ×4 (01:38→19:13)
[2021-08-08] MEDS: ISOSORBIDE DINITRATE 20 MG TAB PO SCH ×3 (05:56→18:21)
[2021-08-08 08:05] LABS: INR 1.3 (0.9-1.1); Partial Thromboplastin Ratio 2.1; Prothrombin Time 12.9 Seconds (9.0-12.0)
[2021-08-08 08:07] LABS: Calcium 9.3 mg/dl (8.5-10.1); Creatinine Clr Calc Pharmacy 24.6 ml/min; Est GFR (African American) 18.1 ml/min; Est GFR (Non-African American) 15.6 ml/min; Potassium 4.2 mmol/L (3.5-5.1)
[2021-08-08 08:09] LABS: Partial Thromboplastin Time 55.2 Seconds (21.0-31.0)
[2021-08-08] MEDS: FENOFIBRATE NANOCRYSTALLIZED 48 MG TABLET PO SCH (09:03)
[2021-08-08] MEDS: SIMVASTATIN 40 MG TAB PO SCH (09:03)
[2021-08-08] MEDS: BUMETANIDE 1 MG in SYRINGE 0 ML IV SCH ×2 (09:03→18:22)
[2021-08-08] MEDS: LEVOTHYROXINE SODIUM 112 MCG TABLET PO SCH (09:03)
[2021-08-08] MEDS: METOPROLOL SUCC 50MG EXT REL TAB PO SCH ×2 (09:04→21:59)
[2021-08-08] MEDS: hydrALAZINE TAB 50 MG TAB PO SCH ×2 (09:04→21:59)
[2021-08-08] MEDS: INSULIN HUMAN NPH SC SCH (09:10)
[2021-08-08] MEDS: INSULIN ASPART 100 UNITS/ML 3 ML PEN SC SCH ×4 (09:10→22:00)
[2021-08-08] MEDS: GATIFLOXACIN OPL SCH ×3 (09:19→18:28)
[2021-08-08] MEDS: PROLENSA OPL SCH (09:19)
[2021-08-08] MEDS: DUREZOL OPL SCH ×2 (09:19→18:28)
--- NOTE | 2021-08-08 09:53 | XRay Report ---
XR chest 2V PA/lateral HISTORY: Ongoing shortness of breath. Hypoxia COMPARISON: Chest 08/01/2021. FINDINGS: No pneumothorax. No pleural effusions. The heart remains mildly enlarged. There is a left-s ided pacemaker/defibrillator. Mild diffuse interstitial thickening and hazy bilateral airspace opacit ies persist. IMPRESSION: No change in the diffuse interstitial thickening and hazy bilateral airspace opacities. This could re present pulmonary edema or a viral pneumonia. ACT 112: Negative or not required by law. Electronically signed by: Boubacar Bryant M.D. 08/08/2021 9:52 AM
--- NOTE | 2021-08-08 14:44 | Pharmacy Report ---
Pharmacy Glycemic Short Note 2 - Date of Service August 08, 2021 - Glycemic Short BSG Results (Last 24 hours): 08/07/21 08/07/21 08/08/21 17:03 20:18 07:26 Glucose 174 H POC Glucose 164 H 139 H 08/08/21 08/08/21 07:50 11:42 Glucose POC Glucose 195 H 278 H OUTPATIENT ANTIDIABETIC REGIMEN: * Novolog 70/30: 100 units QAM, 90 units QPM * A1c 9.3% 08/03/21 ASSESSMENT: 08/08: * Patient received total of 110 units of insulin yesterday; 65 units basal + 45 units bolus. * Fasting BSG today was 195 mg/dl. Added Lantus 10 units HS tonight if bsg greater than 120 mg/dl. * Dinner and HS BSGs were near or at goal yesterday. Continued Novolog parameters the same. 08/07/21 * Patient's BSGs yesterday were [phone] mg/dL and fasting today is 199 mg/dL. * Patient received 96 units of insulin yesterday (60 units of basal and 36 units of bolus- currently at 60/40 split which mimics home regimen). * Continue morning NPH dose as dinner BSG good. Increase evening NPH as fasting continues to trend upwards. * Continue Novolog as BSGs stable. * Patient continues on heparin drip at 46 units/hr 08/06: * Patient received total 107 units of insulin yesterday; 55 units basal and 52 units bolus. * Fasting BSG was 152 mg/dl, which is higher than last couple of days. Increased dinner time NPH dose. * Post-prandial BSGs were at goal yesterday. Pre-lunch BSG elevated at 251 mg/dl. Continue current parameters for Novolog. * Possibly may need to increase AM NPH dose tomorrow if BSGs trend up tonight. 08/05/21 * Patient's BSGs yesterday were [phone] mg/dL and fasting today is 137 mg/dL. * Patient received 115 units of insulin yesterday (70 units of basal and 45 units of bolus). * Will decrease fasting to 60 units per day with 2/3 of dose in morning. This is due to 102 mg/dL at dinnertime reflecting aggressive morning NPH. * Loosen Novolog as BSGs trending downwards. * Patient continues on heparin drip at 46 units/hr 08/04/21 * Blood sugars elevated yesterday morning, NPH increased and CF/CR tightened, great glycemic control since then, continue * Patient remains on heparin drip at 42ml/hr 08/02/21 * 75 year old male admitted with CHF, elevated troponin, on heparin drip, type 2 diabetic, uncontrolled, no basal insulin given since admitted last night, pharmacy consulted for glycemic control * Add basal insulin with NPH to match insulins in mixed insulin patient uses at home * Outpatient regimen is premixed basal/prandial insulin of Novolog 70/30 mix insulin. * Pre-mixed insulin is difficult to titrate since it is already in a fixed distribution of basal:prandial insulin. Continuing pre-mixed insulin for admission typically lead to hypoglycemia d/t changing PO status but rapid acting insulin is unable to be held. * Home regimen will be held for admission per pharmacy consult. Will utilize SQ basal bolus insulin regimen with NPH + NovoLog (CF+CR) * Tighten CF/CR * Overnight accuchecks while reaching euglycemia PLAN FOR INPATIENT GLYCEMIC CONTROL: * Hold outpatient pre-mixed insulin * Basal insulin: added Lantus * NPH 35 units SQ with breakfast and 30 units with dinner * Lantus 10 units SQ HS if BSG greater than 120 mg/dl * Bolus insulin * NovoLog per scale ACHS or Q6hrs while NPO * Goal Range: Low 110 mg/dL - High 140 mg/dL * Correction Factor: 12 mg/dL/unit with breakfast, 15 units with lunch, dinner and HS * Nutritional / Prandial insulin per carb ratio of 1 unit per 3 grams CHO consumed at breakfast, and 4 gm of CHO with lunch, dinner and HS. PLAN FOR DISCHARGE: * HbA1C currently is above goal but is improved compared to December of this year. Currently HbA1C = 9.3% with goal of ~8%. * Recommend continuing to check BSGs at least one time per day and titrating insulin with outpatient provider. * Per family living educator note, could consider GLP-1 to help decrease insulin burden.
--- NOTE | 2021-08-08 15:38 | Hospitalist Progress Note ---
Date of Service August 08, 2021 Assessment & Plan (1) CHF (congestive heart failure): Plan: Acute on chronic heart failure- HFrEF - patient endorses symptoms worsening over the past 1-2 months - decreased crackles. - continue diuretics per nephrology recommendations - -ve 1337ml yesterday - Valencia catheter placed for SUMMER as well as his dyspnea with movement - Continue metoprolol - ECHO evaluate valve function and WM - BNP 3549, repeat in AM - BiPAP if needed for support - check BMP daily (2) Hypoxia: Plan: *Acute respiratory failure with hypoxia CHF Infectious cause ruled out - Patient feels breathing has improved since coming to ER -will continue to diurese. - Oxygen support for SPO2 >92% - NC/HFNC/BiPAP - Albuterol PRN - WBC improved without antibiotics - Procalcitonin negative - Repeat CXR today (3) Elevated troponin: Plan: Likely type II secondary to hypoxia and volume stress - trop peaked at 7.6 -Due to lack of symptoms and CKD, risk of cardiac cath (CKD) outweighs benefit -consulted cardio: no cardiac cath is indicated at the moment due to decreased kidney function. 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 but trending up last few days - follow with diuresing (5) Biventricular ICD (implantable cardioverter-defibrillator) in place: Plan: BiV- DDDR (afib underlying) Rate 60BMP; Upper tracking 120; Upper AT 170, VF: >200 - Appropriate fire and capture on ECG (6) Atrial fibrillation: Plan: As above - continue metoprolol - on heparin - restarted warfarin 08/05 (7) Hypertension: Plan: Continue Hydralazine, Metoprolol, ISDN, diuretics as above - adjustment may be needed following evaluation and diuresing (8) Chronic venous insufficiency: Plan: Follows with wound care- well healed ulcerations to left leg- patient is phyllis compression stocking Plan: VTE Prophylaxis - IV heparin as warfarin is restarted, 10mg warfarin started 08/05, INR 1.3, increase to 15mg today Disposition - continue on med/surg Admission and Anticipated Discharge Date Admission Date: August 01, 2021 Subjective Mildly improving shortness of breath on exertion. Continues to running a negative balance. No chest pain. Review of Systems Review of Systems: All systems reviewed & are unremarkable except as noted in HPI & below Physical Exam Constitutional: well developed, well nourished and + obese; no acute distress ENMT: Mouth: oral mucous membranes not dry Respiratory: normal respiratory effort Auscultation: + diminished lung sounds (bibasal); no wheezes Cardiovascular: Rate/Rhythm: regular rate and regular rhythm Heart Sounds: normal S1 and normal S2; no murmur Extremities: + edema (trace pretibial) Gastrointestinal (Abdomen): Inspection/Auscultation: normal bowel sounds Percussion/Palpation: abdomen soft; abdomen nontender Musculoskeletal: Extremities: strength 5/5 throughout and + lower leg abnorm ality (R BKA) Skin: no rashes, warm and dry Psychiatric: Orientation: alert and oriented x 3 Results & Data Results & Data ([facility]) Vital Signs (Past 12 Hours) Vital Signs Temp Pulse Resp BP Pulse Ox 08/08/21 13:04 90 20 92 08/08/21 08:07 36.7 C 84 16 147/75 H 94 08/08/21 07:47 87 18 94 PG Care Time/CCT Total # of Minutes Spent Total Time Spent with Patient: Total time spent is greater than 50% in coordination of care (as documented) at patient's floor/unit and/or counseling patient: Coding Level of Care Code 81271 Subseq Hosp Care Lvl 2 Diagnoses CHF (congestive heart failure) I50.9 Hypoxia R09.02 Elevated troponin R77.8 CKD (chronic kidney disease) stage 4, GFR 15-29 ml/min N18.4 Biventricular ICD (implantable cardioverter-defibrillator) in place Z95.810 Atrial fibrillation I48.91 Atrial fibrillation type: unspecified Hypertension I10 Hypertension type: essential hypertension Chronic venous insufficiency I87.2 (1) Atrial fibrillation Atrial fibrillation type: unspecified Qualified Code(s): I48.91 - Unspecified atrial fibrillation (2) Hypertension Hypertension type: essential hypertension Qualified Code(s): I10 - Essential (primary) hypertension
[2021-08-08] MEDS ORDERED: WARFARIN SOD 5 MG TAB PO ONE (16:00)
--- NOTE | 2021-08-08 16:48 | Nephrology Progress Note ---
Date of Service August 08, 2021 Assessment & Plan (1) CKD (chronic kidney disease) stage 4, GFR 15-29 ml/min: Plan: baseline creatinine spring/summer 2020 mid to high 3's. chemistries acceptable still; remains moderately volume overloaded but volume status improving. also with significant cardiac concerns > subacute heart failure with extensive apical, septal scar and troponin patterns concerning for myocardial ischemia. we have this admission discussed possibility that if heart conditions worsen abruptly and he has cardiac cath his renal function may also worsen to where would need decision about dialysis. he appreciated the discussion; does continue to feel that "going to a center for 4 hrs 3 times a week is bullshit" and not something he'd be inclined to do; not a final decision however; he is willing to cont to discuss -daily bmp -cont current diuretic dosing > bumex 1 mg bid17 IV; would not increase; po diuretics as below when INR therapeutic -cont FR 1.5L -he has historically refused to discuss dialysis but need to cont to discuss in setting of ongiong cardiac and overload issues Will sign off; pls call if ? NEPHRO DISCHARGE RECS -cont 1.5 L FR -bmp within a week of d/c -note pt has 08/15 appt in CKD clinic w/ Dr Reina - pls have him keep appt or reschedule w/in 1-2 wks of d/c if he does not attend -at hospital d/c, recommend stopping lasix and starting torsemide 60 mg daily Admission and Anticipated Discharge Date Admission Date: August 01, 2021 Subjective no overnight events; still waiting on INR to become therapeutic; stable rubin; no worsening edema, no n/v; some fatigue Review of Systems Review of Systems: All systems reviewed & are unremarkable except as noted in Subjective Physical Exam Constitutional: well developed, well nourished, + obese and comfortable (sitting on side of bed on RA); no acute distress Eyes: EOM intact bilaterally ENMT: Ears: no external ear abnormality Nose: no external nose abnormality Mouth: + dry oral mucous membranes Neck: no nuchal rigidity Respiratory: normal respiratory effort (on 02NC) Auscultation: + diminished lung sounds (markedly) Cardiovascular: Rate/Rhythm: regular rate and regular rhythm Heart Sounds: normal S1 and normal S2; no murmur Extremities: + edema (trace pretibial) Gastrointestinal (Abdomen): Inspection/Auscultation: normal bowel sounds Percussion/Palpation: abdomen soft; abdomen nontender Musculoskeletal: Extremities: strength 5/5 throughout and + lower leg abnormality (R BKA) Skin: no rashes, warm and dry Neurologic: gregory, fluent speech, no tremor Psychiatric: Orientation: oriented x 3 and cooperative Results & Data ([facility]) Vital Signs (Past 12 Hours) Vital Signs Temp Pulse Resp BP Pulse Ox 08/08/21 16:27 36.6 C 75 16 137/77 95 08/08/21 13:04 90 20 92 08/08/21 08:07 36.7 C 84 16 147/75 H 94 08/08/21 07:47 87 18 94 Laboratory Results 08/05/21 05:54 08/08/21 07:26
[2021-08-08] MEDS ORDERED: INSULIN HUMAN NPH SC SCH ×2 (17:50→17:52)
[2021-08-08] MEDS: WARFARIN SOD 10 MG TAB PO SCH (18:21)
[2021-08-08] MEDS: SENNA 8.6 MG TAB PO SCH (21:58)
[2021-08-08] MEDS: INSULIN GLARGINE SOLOSTAR 100 UNITS/ML 3 ML PEN SC SCH (22:28)
[2021-08-09] MEDS: ALBUTEROL 0.083% NEBU SOLN 3 ML VIAL NEB SCH ×4 (00:10→19:14)
[2021-08-09] MEDS: ISOSORBIDE DINITRATE 20 MG TAB PO SCH ×3 (06:01→18:07)
[2021-08-09] MEDS: ACETAMINOPHEN 325 MG TAB PO PRN (06:03)
[2021-08-09 06:28] LABS: Basophils # (auto) 0.03 K/uL (0-0.2); Basophils % (auto) 0.3 %; Eosinophils # (auto) 0.42 K/uL (0-0.5); Eosinophils % (auto) 4.1 %; Hematocrit (blood only) 29.1 % (42-52); Hemoglobin 9.3 g/dL (14.0-18.0); Immature Granulocytes # (auto) 0.04 K/uL (0.00-0.02); Immature Granulocytes % (auto) 0.4 %; Lymphocytes # (auto) 1.14 K/uL (1.2-3.4); Lymphocytes % (auto) 11.2 %; Mean Corpuscular Hemoglobin 29.5 pg (25-34); Mean Corpuscular Volume 92.4 fL (80-100); Mean Platelet Volume 10.9 fL (7.4-10.4); Monocytes # (auto) 0.96 K/uL (0.11-0.59); Monocytes % (auto) 9.4 %; Neutrophils # (auto) 7.59 K/uL (1.4-6.5); Neutrophils % (auto) 74.6 %; Platelet Count 283 K/uL (130-400); RDW Coefficient of Variation 15.4 % (11.5-14.5); RDW Standard Deviation 52.1 fL (36.4-46.3); Red Blood Count 3.15 M/uL (4.7-6.1); White Blood Count 10.18 K/uL (4.8-10.8)
[2021-08-09 06:47] LABS: INR 1.5 (0.9-1.1); Partial Thromboplastin Ratio 2.1; Prothrombin Time 14.8 Seconds (9.0-12.0)
[2021-08-09 06:51] LABS: Partial Thromboplastin Time 54.2 Seconds (21.0-31.0)
[2021-08-09 06:59] LABS: BUN Creatinine Ratio 17.6 (10-20); Calcium 9.9 mg/dl (8.5-10.1); Creatinine Clr Calc Pharmacy 26.3 ml/min; Est GFR (African American) 19.6 ml/min; Est GFR (Non-African American) 16.9 ml/min; Potassium 4.1 mmol/L (3.5-5.1)
[2021-08-09] MEDS: METOPROLOL SUCC 50MG EXT REL TAB PO SCH ×2 (08:24→20:54)
[2021-08-09] MEDS: BUMETANIDE 1 MG in SYRINGE 0 ML IV SCH ×2 (08:24→18:06)
[2021-08-09] MEDS: SIMVASTATIN 40 MG TAB PO SCH (08:25)
[2021-08-09] MEDS: FENOFIBRATE NANOCRYSTALLIZED 48 MG TABLET PO SCH (08:25)
[2021-08-09] MEDS: hydrALAZINE TAB 50 MG TAB PO SCH ×2 (08:26→20:54)
[2021-08-09] MEDS: LEVOTHYROXINE SODIUM 112 MCG TABLET PO SCH (08:27)
[2021-08-09] MEDS: DUREZOL OPL SCH ×2 (08:32→20:49)
[2021-08-09] MEDS: PROLENSA OPL SCH (08:33)
[2021-08-09] MEDS: INSULIN HUMAN NPH SC SCH (09:06)
[2021-08-09] MEDS: INSULIN ASPART 100 UNITS/ML 3 ML PEN SC SCH ×5 (09:07→21:54)
[2021-08-09] MEDS: HEPARIN SODIUM/DEXTROSE 25,000 UNITS/500 ML BAG IV SCH ×2 (09:10→17:59)
[2021-08-09] MEDS ORDERED: MAGNESIUM HYDROXIDE SUSP 30 ML UDC PO ONE (09:47)
--- NOTE | 2021-08-09 14:04 | Pharmacy Report ---
Pharmacy Glycemic Short Note 2 - Date of Service August 09, 2021 - Glycemic Short BSG Results (Last 24 hours): 08/08/21 08/08/21 08/08/21 17:19 17:20 17:39 Glucose POC Glucose 63 L* 59 L* 108 H 08/08/21 08/09/21 08/09/21 20:48 05:33 08:18 Glucose 163 H POC Glucose 208 H 165 H 08/09/21 12:07 Glucose POC Glucose 142 H OUTPATIENT ANTIDIABETIC REGIMEN: * Novolog 70/30: 100 units QAM, 90 units QPM * A1c 9.3% 08/03/21 ASSESSMENT: 08/09: * Labile BSGs yesterday, ranging 63-278 mg/dL * Lantus added last evening and fasting BSG is improved this morning (165 mg/dL) * Will decrease AM NPH in light of hypoglycemia noted at dinnertime 08/08: * Patient received total of 110 units of insulin yesterday; 65 units basal + 45 units bolus. * Fasting BSG today was 195 mg/dl. Added Lantus 10 units HS tonight if bsg greater than 120 mg/dl. * Dinner and HS BSGs were near or at goal yesterday. Continued Novolog parameters the same. 08/07/21 * Patient's BSGs yesterday were [phone] mg/dL and fasting today is 199 mg/dL. * Patient received 96 units of insulin yesterday (60 units of basal and 36 units of bolus- currently at 60/40 split which mimics home regimen). * Continue morning NPH dose as dinner BSG good. Increase evening NPH as fasting continues to trend upwards. * Continue Novolog as BSGs stable. * Patient continues on heparin drip at 46 units/hr 08/02/21 * 75 year old male admitted with CHF, elevated troponin, on heparin drip, type 2 diabetic, uncontrolled, no basal insulin given since admitted last night, pharmacy consulted for glycemic control * Add basal insulin with NPH to match insulins in mixed insulin patient uses at home * Outpatient regimen is premixed basal/prandial insulin of Novolog 70/30 mix insulin. * Pre-mixed insulin is difficult to titrate since it is already in a fixed distribution of basal:prandial insulin. Continuing pre-mixed insulin for admission typically lead to hypoglycemia d/t changing PO status but rapid acting insulin is unable to be held. * Home regimen will be held for admission per pharmacy consult. Will utilize SQ basal bolus insulin regimen with NPH + NovoLog (CF+CR) * Tighten CF/CR * Overnight accuchecks while reaching euglycemia PLAN FOR INPATIENT GLYCEMIC CONTROL: * Hold outpatient pre-mixed insulin * Basal insulin: added Lantus * NPH 30 units SQ with breakfast and 30 units with dinner * Lantus 10 units SQ HS if BSG greater than 120 mg/dl * Bolus insulin * NovoLog per scale ACHS or Q6hrs while NPO * Goal Range: Low 110 mg/dL - High 140 mg/dL * Correction Factor: 12 mg/dL/unit with breakfast, 20 units with lunch, dinner and HS * Nutritional / Prandial insulin per carb ratio of 1 unit per 3 grams CHO consumed at breakfast, and 4 gm of CHO with lunch, dinner and HS. PLAN FOR DISCHARGE: * HbA1C currently is above goal but is improved compared to December of this year. Currently HbA1C = 9.3% with goal of ~8%. * Recommend continuing to check BSGs at least one time per day and titrating insulin with outpatient provider. * Per personal development educator note, could consider GLP-1 to help decrease insulin burden.
--- NOTE | 2021-08-09 15:46 | Hospitalist Progress Note ---
Date of Service August 09, 2021 Assessment & Plan (1) CHF (congestive heart failure): Plan: Acute on chronic heart failure- HFrEF - patient endorses symptoms worsening over the past 1-2 months - decreased crackles. - continue diuretics per nephrology recommendations - -ve 828ml yesterday - Continue metoprolol - ECHO evaluate valve function and WM - BNP 3549, repeat in AM - BiPAP if needed for support - check BMP daily (2) Hypoxia: Plan: *Acute respiratory failure with hypoxia CHF Infectious cause ruled out - Patient feels breathing has improved since coming to ER -will continue to diurese. - Oxygen support for SPO2 >92% - NC/HFNC/BiPAP - Albuterol PRN - WBC improved without antibiotics - Procalcitonin negative - Repeat CXR stable (3) Elevated troponin: Plan: Likely type II secondary to hypoxia and volume stress - trop peaked at 7.6 -Due to lack of symptoms and CKD, risk of cardiac cath (CKD) outweighs benefit -consulted cardio: no cardiac cath is indicated at the moment due to decreased kidney function. 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 is at baseline at current but trending up last few days - follow with diuresing (5) Biventricular ICD (implantable cardioverter-defibrillator) in place: Plan: BiV- DDDR (afib underlying) Rate 60BMP; Upper tracking 120; Upper AT 170, VF: >200 - Appropriate fire and capture on ECG (6) Atrial fibrillation: Plan: As above - continue metoprolol - on heparin - restarted warfarin 08/05 (7) Hypertension: Plan: Continue Hydralazine, Metoprolol, ISDN, diuretics as above - adjustment may be needed following evaluation and diuresing (8) Chronic venous insufficiency: Plan: Follows with wound care- well healed ulcerations to left leg- patient is phyllis compression stocking Plan: VTE Prophylaxis - IV heparin as warfarin is restarted, 10mg warfarin started 08/05, INR 1.5, continue 15mg daily until therapeutic Disposition - continue on med/surg Admission and Anticipated Discharge Date Admission Date: August 01, 2021 Subjective Not had large BM for several days and feels abdominal bloating affecting his breathing. Review of Systems Review of Systems: All systems reviewed & are unremarkable except as noted in HPI & below Physical Exam Constitutional: well developed, well nourished and + obese; no acute distress ENMT: Mouth: oral mucous membranes not dry Respiratory: normal respiratory effort Auscultation: + diminished lung sounds (bibasal); no wheezes Cardiovascular: Rate/Rhythm: regular rate and regular rhythm Heart Sounds: normal S1 and normal S2; no murmur Extremities: + edema (trace pretibial) Gastrointestinal (Abdomen): Inspection/Auscultation: normal bowel sounds Percussion/Palpation: abdomen soft; abdomen nontender Musculoskeletal: Extremities: strength 5/5 throughout and + lower leg abnormality (R BKA) Skin: no rashes, warm and dry Psychiatric: Orientation: alert and oriented x 3 Results & Data Results & Data ([facility]) Vital Signs (Past 12 Hours) Vital Signs Temp Pulse Resp BP Pulse Ox 08/09/21 13:30 36.5 C 91 H 18 151/70 H 92 08/09/21 13:01 89 18 93 08/09/21 07:53 69 18 96 08/09/21 07:12 36.8 C 80 18 119/69 95 PG Care Time/CCT Total # of Minutes Spent Total Time Spent with Patient: Total time spent is greater than 50% in coordination of care (as documented) at patient's floor/unit and/or counseling patient: Coding Level of Care Code 64493 Subseq Hosp Care Lvl 1 Diagnoses CHF (congestive heart failure) I50.9 Hypoxia R09.02 Elevated troponin R77.8 CKD (chronic kidney disease) stage 4, GFR 15-29 ml/min N18.4 Biventricular ICD (implantable cardioverter-defibrillator) in place Z95.810 Atrial fibrillation I48.91 Atrial fibrillation type: unspecified Hypertension I10 Hypertension type: essential hypertension Chronic venous insufficiency I87.2 (1) Atrial fibrillation Atrial fibrillation type: unspecified Qualified Code(s): I48.91 - Unspecified atrial fibrillation (2) Hypertension Hypertension type: essential hypertension Qualified Code(s): I10 - Essential (primary) hypertension
[2021-08-09] MEDS ORDERED: WARFARIN SOD 7.5 MG TAB PO SCH (16:00)
[2021-08-09] MEDS ORDERED: INSULIN HUMAN NPH SC SCH (16:30)
[2021-08-09] MEDS: INSULIN GLARGINE SOLOSTAR 100 UNITS/ML 3 ML PEN SC SCH (20:47)
[2021-08-09] MEDS: SENNA 8.6 MG TAB PO SCH (20:50)
[2021-08-10] MEDS: ALBUTEROL 0.083% NEBU SOLN 3 ML VIAL NEB SCH ×2 (00:46→08:33)
[2021-08-10] MEDS: HEPARIN SODIUM/DEXTROSE 25,000 UNITS/500 ML BAG IV SCH (04:43)
[2021-08-10] MEDS: ISOSORBIDE DINITRATE 20 MG TAB PO SCH ×3 (06:01→16:31)
[2021-08-10] MEDS ORDERED: ALBUTEROL 0.083% NEBU SOLN 3 ML VIAL NEB PRN (07:14)
[2021-08-10 07:37] LABS: BUN Creatinine Ratio 17.7 (10-20); Calcium 9.3 mg/dl (8.5-10.1); Creatinine Clr Calc Pharmacy 24.7 ml/min; Est GFR (African American) 18.4 ml/min; Est GFR (Non-African American) 15.8 ml/min; Potassium 4.2 mmol/L (3.5-5.1)
[2021-08-10 07:47] LABS: Partial Thromboplastin Ratio 2.3; Prothrombin Time 19.3 Seconds (9.0-12.0)
[2021-08-10 07:57] LABS: Partial Thromboplastin Time 60.2 Seconds (21.0-31.0)
[2021-08-10] MEDS: INSULIN HUMAN NPH SC SCH ×3 (08:33→21:13)
--- NOTE | 2021-08-10 08:49 | Pharmacy Report ---
Pharmacy Glycemic Short Note 2 - Date of Service August 10, 2021 - Glycemic Short BSG Results (Last 24 hours): 08/09/21 08/09/21 08/09/21 12:07 17:29 20:39 Glucose POC Glucose 142 H 104 H 138 H 08/10/21 08/10/21 06:40 08:34 Glucose 152 H POC Glucose 151 H OUTPATIENT ANTIDIABETIC REGIMEN: * Novolog 70/30: 100 units QAM, 90 units QPM * A1c 9.3% 08/03/21 ASSESSMENT: 08/10 * Pt has received 105 units of insulin over the past 24hrs * 60 units of basal with NPH * 10 units of basal with LANTUS * 35 units of bolus with NovoLog * BSGs well controlled with current regimen' no BSG > 180 * Concern for insulin stacking with Lantus + NPH - both serving as basal insulin (not one for steroid hyperglycemia). Will continue with NPH monotherapy. Increase dose to 70 units/day (35 units SQ BID) but dose q12hrs apart (rather than with breakfast & dinner) to provide more 24hr coverage. 08/09: * Labile BSGs yesterday, ranging 63-278 mg/dL * Lantus added last evening and fasting BSG is improved this morning (165 mg/dL) * Will decrease AM NPH in light of hypoglycemia noted at dinnertime 08/08: * Patient received total of 110 units of insulin yesterday; 65 units basal + 45 units bolus. * Fasting BSG today was 195 mg/dl. Added Lantus 10 units HS tonight if bsg greater than 120 mg/dl. * Dinner and HS BSGs were near or at goal yesterday. Continued Novolog parameters the same. 08/07/21 * Patient's BSGs yesterday were [phone] mg/dL and fasting today is 199 mg/dL. * Patient received 96 units of insulin yesterday (60 units of basal and 36 units of bolus- currently at 60/40 split which mimics home regimen). * Continue morning NPH dose as dinner BSG good. Increase evening NPH as fasting continues to trend upwards. * Continue Novolog as BSGs stable. * Patient continues on heparin drip at 46 units/hr 08/02/21 * 75 year old male admitted with CHF, elevated troponin, on heparin drip, type 2 diabetic, uncontrolled, no basal insulin given since admitted last night, pharmacy consulted for glycemic control * Add basal insulin with NPH to match insulins in mixed insulin patient uses at home * Outpatient regimen is premixed basal/prandial insulin of Novolog 70/30 mix insulin. * Pre-mixed insulin is difficult to titrate since it is already in a fixed distribution of basal:prandial insulin. Continuing pre-mixed insulin for admission typically lead to hypoglycemia d/t changing PO status but rapid acting insulin is unable to be held. * Home regimen will be held for admission per pharmacy consult. Will utilize SQ basal bolus insulin regimen with NPH + NovoLog (CF+CR) * Tighten CF/CR * Overnight accuchecks while reaching euglycemia PLAN FOR INPATIENT GLYCEMIC CONTROL: * Hold outpatient pre-mixed insulin * Basal insulin: dc Lantus * NPH 35 units SQ with breakfast and 35 units at HS * Bolus insulin: no change * NovoLog per scale ACHS or Q6hrs while NPO * Goal Range: Low 110 mg/dL - High 140 mg/dL * Correction Factor: 12 mg/dL/unit with breakfast, 20 units with lunch, dinner and HS * Nutritional / Prandial insulin per carb ratio of 1 unit per 3 grams CHO consumed at breakfast, and 4 gm of CHO with lunch, dinner and HS. PLAN FOR DISCHARGE: * HbA1C currently is above goal but is improved compared to December of this year. Currently HbA1C = 9.3% with goal of ~8%. * Recommend continuing to check BSGs at least one time per day and titrating insulin with outpatient provider. * Per adult educator note, could consider GLP-1 to help decrease insulin burden.
[2021-08-10] MEDS: INSULIN ASPART 100 UNITS/ML 3 ML PEN SC SCH ×4 (09:08→21:14)
[2021-08-10] MEDS: PROLENSA OPL SCH (09:18)
[2021-08-10] MEDS: LEVOTHYROXINE SODIUM 112 MCG TABLET PO SCH (09:19)
[2021-08-10] MEDS: METOPROLOL SUCC 50MG EXT REL TAB PO SCH ×2 (09:19→21:18)
[2021-08-10] MEDS: FENOFIBRATE NANOCRYSTALLIZED 48 MG TABLET PO SCH (09:19)
[2021-08-10] MEDS: hydrALAZINE TAB 50 MG TAB PO SCH ×2 (09:19→21:18)
[2021-08-10] MEDS: SIMVASTATIN 40 MG TAB PO SCH (09:20)
[2021-08-10] MEDS: BUMETANIDE 1 MG in SYRINGE 0 ML IV SCH ×2 (09:21→16:32)
[2021-08-10] MEDS: DUREZOL OPL SCH ×2 (09:24→21:15)
--- NOTE | 2021-08-10 11:36 | Hospitalist Progress Note ---
Date of Service August 10, 2021 Assessment & Plan (1) CHF (congestive heart failure): Plan: Acute on chronic heart failure- HFrEF with chronic renal failure - patient endorses symptoms worsening over the past 1-2 months - continues to diurese with negative balance on Bumex 1mg IV BID although concerning BNP increased this may be related to his heart attack and - Continue metoprolol - TTE - LVEF 40-45%, focal severe hypokinesis of the mid and apical septus with mild diffuse LV, mild-mod aortica stenosis - check BMP daily - strict I&Os, daily weights, current weight compared to September suggest he still has another 4-5kg to go before reaching his dry weight therefore will continue to diurese with IV Bumex prior to switching to torsemide. (2) Hypoxia: Plan: *Acute respiratory failure with hypoxia CHF - diurese as above Infectious cause ruled out - Patient feels breathing has improved since coming to ER - Oxygen support for SPO2 >92% - Procalcitonin negative - Repeat CXR stable (3) Elevated troponin: Plan: Likely type II secondary to hypoxia and volume stress - trop peaked at 7.98 -Due to lack of symptoms and CKD, risk of cardiac cath (CKD) outweighs benefit -consulted cardio: no cardiac cath is indicated at the moment due to decreased kidney function. 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 - follow BMP daily with diureses (5) Biventricular ICD (implantable cardioverter-defibrillator) in place: Plan: BiV- DDDR (afib underlying) Rate 60BMP; Upper tracking 120; Upper AT 170, VF: >200 - Appropriate fire and capture on ECG (6) Atrial fibrillation: Plan: As above - continue metoprolol - on heparin - restarted warfarin 08/05 (7) Hypertension: Plan: Continue Hydralazine, Metoprolol, ISDN, diuretics as above - adjustment may be needed following evaluation and diuresing (8) Chronic venous insufficiency: Plan: Follows with wound care- well healed ulcerations to left leg- patient is phyllis compression stocking Plan: VTE Prophylaxis - stop IV heparin, continue warfarin at his usual dosing 7mg daily Disposition - continue on med/surg due to need for ongoing intravenous diuresis Admission and Anticipated Discharge Date Admission Date: August 01, 2021 Subjective Continues to feel significantly short of breath but improved since admission. Sats 84% on room air. Patient not on oxygen prior to admission. Continues to lose weight with negative balance daily, although BNP increased. Review of Systems Review of Systems: All systems reviewed & are unremarkable except as noted in HPI & below Physical Exam Constitutional: well developed, well nourished and + obese; no acute distress ENMT: Mouth: oral mucous membranes not dry Respiratory: normal respiratory effort Auscultation: + diminished lung sounds (mild bibasal); no wheezes Cardiovascular: Rate/Rhythm: regular rate and regular rhythm Heart Sounds: normal S1 and normal S2; no murmur Extremities: + edema (trace pretibial) Gastrointestinal (Abdomen): Inspection/Auscultation: normal bowel sounds Percussion/Palpation: abdomen soft; abdomen nontender Musculoskeletal: Extremities: strength 5/5 throughout and + lower leg abnormality (R BKA) Skin: no rashes, warm and dry Psychiatric: Orientation: alert and oriented x 3 Results & Data Results & Data ([facility]) Vital Signs (Past 12 Hours) Vital Signs Temp Pulse Pulse Pulse Pulse Resp Resp 08/10/21 10:01 90 92 H 18 08/10/21 07:40 37 C 82 16 08/10/21 00:48 89 16 Resp BP Pulse Ox Pulse Ox Pulse Ox 08/10/21 10:01 20 95 84 L 08/10/21 07:40 109/56 L 97 08/10/21 00:48 96 PG Care Time/CCT Total # of Minutes Spent Total Time Spent with Patient: Total time spent is greater than 50% in coordination of care (as documented) at patient's floor/unit and/or counseling patient: Coding Level of Care Code 91285 Subseq Hosp Care Lvl 2 Diagnoses CHF (congestive heart failure) I50.9 Hypoxia R09.02 Elevated troponin R77.8 CKD (chronic kidney disease) stage 4, GFR 15-29 ml/min N18.4 Biventricular ICD (implantable cardioverter-defibrillator) in place Z95.810 Atrial fibrillation I48.91 Atrial fibrillation type: unspecified Hypertension I10 Hypertension type: essential hypertension Chronic venous insufficiency I87.2 (1) Atrial fibrillation Atrial fibrillation type: unspecified Qualified Code(s): I48.91 - Unspecified atrial fibrillation (2) Hypertension Hypertension type: essential hypertension Qualified Code(s): I10 - Essential (primary) hypertension
[2021-08-10] MEDS: ASPIRIN 81 MG ECTAB PO SCH (13:01)
[2021-08-10] MEDS ORDERED: WARFARIN SOD 1 MG TAB PO SCH (16:00)
[2021-08-10] MEDS: WARFARIN SOD 4 MG TAB PO SCH (16:30)
[2021-08-10] MEDS: WARFARIN SOD 3 MG TAB PO SCH (16:30)
[2021-08-10] MEDS: ACETAMINOPHEN 325 MG TAB PO PRN (19:37)
[2021-08-10] MEDS: SENNA 8.6 MG TAB PO SCH (21:18)
[2021-08-11] MEDS: ISOSORBIDE DINITRATE 20 MG TAB PO SCH ×3 (06:01→16:46)
[2021-08-11 06:51] LABS: INR 2.6 (0.9-1.1); Prothrombin Time 24.1 Seconds (9.0-12.0)
[2021-08-11 07:20] LABS: BUN Creatinine Ratio 18.5 (10-20); Calcium 9.4 mg/dl (8.5-10.1); Creatinine Clr Calc Pharmacy 22.2 ml/min; Est GFR (African American) 16.1 ml/min; Est GFR (Non-African American) 13.9 ml/min; Potassium 4.7 mmol/L (3.5-5.1)
[2021-08-11] MEDS: DUREZOL OPL SCH ×2 (09:06→20:14)
[2021-08-11] MEDS: ASPIRIN 81 MG ECTAB PO SCH (09:07)
[2021-08-11] MEDS: LEVOTHYROXINE SODIUM 112 MCG TABLET PO SCH (09:07)
[2021-08-11] MEDS: SIMVASTATIN 40 MG TAB PO SCH (09:08)
[2021-08-11] MEDS: hydrALAZINE TAB 50 MG TAB PO SCH ×2 (09:08→20:12)
[2021-08-11] MEDS: FENOFIBRATE NANOCRYSTALLIZED 48 MG TABLET PO SCH (09:08)
[2021-08-11] MEDS: METOPROLOL SUCC 50MG EXT REL TAB PO SCH ×2 (09:08→20:13)
[2021-08-11] MEDS: BUMETANIDE 1 MG in SYRINGE 0 ML IV SCH (09:09)
[2021-08-11] MEDS: INSULIN ASPART 100 UNITS/ML 3 ML PEN SC SCH ×5 (09:13→20:19)
[2021-08-11] MEDS: INSULIN HUMAN NPH SC SCH ×3 (09:15→20:22)
[2021-08-11] MEDS: PROLENSA OPL SCH (09:20)
--- NOTE | 2021-08-11 10:28 | Hospitalist Progress Note ---
Date of Service August 11, 2021 Assessment & Plan (1) Ventricular arrhythmia: Plan: Per pacemaker interrogation total x6 VF shocks this admission. Episodes started on August 08 but provider not aware until today. Additional 5 episodes NSVT mostly last 2 nights. Transferred to PCU Discussed with Dr Thomas and patient started on amiodarone (2) CHF (congestive heart failure): Plan: Acute on chronic heart failure- HFrEF with chronic renal failure - patient endorses symptoms worsening over the past 1-2 months - continues to diurese with negative balance on Bumex 1mg IV BID although weight now starting to increase. Despite net negative 1L per day he has not made significant progress with his shortness of breath and hypoxia. Discussed with Dr Reina and will increase to 2mg IV BID (additional 1mg given this morning to total 4mg today). Given lack of progress and patient unwillingness for dialysis would recommend palliative care consult. - BNP increasing although I suspect that is related to cardiac arrhythmias +/- defibrillation - TTE - LVEF 40-45%, focal severe hypokinesis of the mid and apical septus with mild diffuse LV, mild-mod aortic stenosis - strict I&Os, daily weights (3) Nonischemic cardiomyopathy: Plan: Continue metoprolol succinate 50mg PO BID Unable to take ACEi/ARB due to CKD stage IV (4) Hypoxia: Plan: *Acute respiratory failure with hypoxia CHF - diurese as above Infectious cause ruled out - Patient feels breathing has improved since coming to ER - Oxygen support for SPO2 >94% - Procalcitonin negative - Repeat CXR 08/08 stable but not improving (5) Elevated troponin: Plan: Likely type II secondary to hypoxia and volume stress - trop peaked at 7.98 - Due to lack of symptoms and CKD, risk of cardiac cath (CKD) outweighs benefit - consulted cardio: no cardiac cath is indicated at the moment due to decreased kidney function - started aspirin as unable to rule out coronary artery disease, although he has known nonischemic cardiomyopathy unable to perform current cardiac cath (6) CKD (chronic kidney disease) stage 4, GFR 15-29 ml/min: Plan: Chronic, suspect recent increase in Cr due to cardiac arrhythmias - follow BMP daily with scotty (7) Biventricular ICD (implantable cardioverter-defibrillator) in place: Plan: BiV- DDDR (afib underlying) Rate 60BMP; Upper tracking 120; Upper AT 170, VF: >200 - Appropriate fire and capture on ECG (8) Atrial fibrillation: Plan: As above - continue metoprolol - restarted warfarin 08/05, now therapeutic but likely to become supratherapeutic as amiodarone started. Check INR daily. (9) Hypertension: Plan: Continue Hydralazine, Metoprolol, ISDN, diuretics as above - adjustment may be needed following evaluation and diuresing (10) Chronic venous insufficiency: Plan: Follows with wound care- well healed ulcerations to left leg- patient is phyllis compression stocking (11) Hypothyroidism: Plan: TSH WNL in Dec Continue levothyroxine 112 mcg PO daily (12) T2DM (type 2 diabetes mellitus): Plan: HbA1C 9.3 Appreciate pharmacy consult for basal bolus insulin control GLP-1 possibility recommended by client experience manager however in setting of CKD stage IV would advise against this given paucity of evidence in these patients Plan: VTE Prophylaxis - continue warfarin 7mg PO daily but likely to become supratherapeutic and may need reduction with starting on amiodarone, PTINR daily Diet - heart healthy, low sodium, T2DM, fluid restricted 1500ml Disposition - transferred to PCU Admission and Anticipated Discharge Date Admission Date: August 01, 2021 Subjective Patient reports feeling ICD fired around 9:50am this morning. No current chest pain. No change in shortness of breath since yesterday. Leg swelling is back to his baseline. He feels mostly the same after firing. He reports it was also going off multiple times the last couple of nights although he did not tell anyone about this. He also notes it had gone off at home prior to admission. Review of Systems Review of Systems: All systems reviewed & are unremarkable except as noted in HPI & below Physical Exam Constitutional: well developed, well nourished and + obese; no acute distress ENMT: Mouth: oral mucous membranes not dry Respiratory: normal respiratory effort Auscultation: + diminished lung parisa nds (mild bibasal); no wheezes Cardiovascular: Rate/Rhythm: regular rate and regular rhythm Heart Sounds: normal S1 and normal S2; no murmur Extremities: + edema (trace pretibial) Gastrointestinal (Abdomen): Inspection/Auscultation: normal bowel sounds Percussion/Palpation: abdomen soft; abdomen nontender Musculoskeletal: Extremities: strength 5/5 throughout and + lower leg abnormality (R BKA) Skin: no rashes, warm and dry Psychiatric: Orientation: alert and oriented x 3 Results & Data Results & Data ([facility]) Vital Signs (Past 12 Hours) Vital Signs Temp Pulse Resp BP BP Pulse Ox 08/11/21 09:59 79 18 147/76 H 94 08/11/21 06:57 36.5 C 77 16 118/68 92 08/10/21 22:29 36.5 C 86 16 126/71 90 PG Care Time/CCT Total # of Minutes Spent Total Time Spent with Patient: Total time spent is greater than 50% in coordination of care (as documented) at patient's floor/unit and/or counseling patient: Coding Level of Care Code 06772 Subseq Hosp Care Lvl 3 Diagnoses CHF (congestive heart failure) I50.9 Hypoxia R09.02 Elevated troponin R77.8 CKD (chronic kidney disease) stage 4, GFR 15-29 ml/min N18.4 Biventricular ICD (implantable cardioverter-defibrillator) in place Z95.810 Atrial fibrillation I48.91 Atrial fibrillation type: unspecified Hypertension I10 Hypertension type: essential hypertension Chronic venous insufficiency I87.2 Ventricular arrhythmia I49.9 Nonischemic cardiomyopathy I42.8 Hypothyroidism E03.9 Hypothyroidism type: acquired T2DM (type 2 diabetes mellitus) E11.9 (1) Atrial fibrillation Atrial fibrillation type: unspecified Qualified Code(s): I48.91 - Unspecified atrial fibrillation (2) Hypertension Hypertension type: essential hypertension Qualified Code(s): I10 - Essential (primary) hypertension (3) Hypothyroidism Hypothyroidism type: acquired Qualified Code(s): E03.9 - Hypothyroidism, unspecified
[2021-08-11] MEDS ORDERED: BUMETANIDE 1 MG in SYRINGE 0 ML IV ONE (11:15)
[2021-08-11 12:20] LABS: Basophils # (auto) 0.03 K/uL (0-0.2); Basophils % (auto) 0.3 %; Eosinophils % (auto) 4.3 %; Hematocrit (blood only) 29.1 % (42-52); Hemoglobin 9.2 g/dL (14.0-18.0); Immature Granulocytes # (auto) 0.04 K/uL (0.00-0.02); Immature Granulocytes % (auto) 0.4 %; Lymphocytes # (auto) 0.67 K/uL (1.2-3.4); Lymphocytes % (auto) 7.1 %; Mean Corpuscular Hemoglobin 29.5 pg (25-34); Mean Corpuscular Volume 93.3 fL (80-100); Mean Platelet Volume 10.4 fL (7.4-10.4); Monocytes % (auto) 7.4 %; Neutrophils # (auto) 7.57 K/uL (1.4-6.5); Neutrophils % (auto) 80.5 %; Platelet Count 304 K/uL (130-400); RDW Coefficient of Variation 15.6 % (11.5-14.5); RDW Standard Deviation 52.9 fL (36.4-46.3); Red Blood Count 3.12 M/uL (4.7-6.1); White Blood Count 9.41 K/uL (4.8-10.8)
[2021-08-11 12:48] LABS: Troponin I 0.125 ng/ml (0-0.045)
[2021-08-11 12:52] LABS: Mean Corpuscular Hgb Conc 31.6 g/dL (32-36)
--- NOTE | 2021-08-11 15:33 | Nephrology Progress Note ---
Date of Service August 11, 2021 Assessment & Plan Admission and Anticipated Discharge Date Admission Date: August 01, 2021 Subjective Assessment & Plan (1) CKD (chronic kidney disease) stage 4, GFR 15-29 ml/min: Plan: baseline creatinine spring/summer 2020 --3.7 So current creat of 3.9 is really within his baseline range overall. I expect some rise in creat in the coming days. he remains volume overloaded despite bumex 1 bid. Quite possible recent episodes of Defibb firing is affecting renal function and urine output. Subacute heart failure with extensive apical, septal scar and troponin patterns concerning for myocardial ischemia. we have this admission discussed possibility that if heart conditions worsen abruptly and he has cardiac cath his renal function may also worsen to where would need decision about dialysis. He appreciated the discussion; does continue to feel that "going to a center for 4 hrs 3 times a week is bullshit" and not something he'd be inclined to do; not a final decision however; he is willing to cont to discuss. -daily bmp -raise bumex 2 mg bid IV -cont FR 1.5L -he has historically refused to discuss dialysis but need to cont to discuss in setting of ongoing cardiac and overload issues -note pt has 08/15 appt in CKD clinic w/me - pls have him keep appt or reschedule w/in 1-2 wks of d/c if he does not attend Subjective went into Vifbb/V tach and AICD fired few times . Now in tele floor. has SOB and orthopnea. Review of Systems Review of Systems: All systems reviewed & are unremarkable except as noted in Subjective Physical Exam Constitutional: well developed, well nourished, + obese and comfortable (sitting on side of bed on RA); no acute distress Eyes: EOM intact bilaterally ENMT: Ears: no external ear abnormality Nose: no external nose abnormality Mouth: + dry oral mucous membranes Neck: no nuchal rigidity Respiratory: normal respiratory effort (on 02NC) Auscultation: + diminished lung sounds (markedly) Cardiovascular: Rate/Rhythm: regular rate and regular rhythm Heart Sounds: normal S1 and normal S2; no murmur Extremities: + edema (trace pretibial) Gastrointestinal (Abdomen): Inspection/Auscultation: normal bowel sounds Percussion/Palpation: abdomen soft; abdomen nontender Musculoskeletal: Extremities: strength 5/5 throughout and + lower leg abnormality (R BKA) Skin: no rashes, warm and dry Neurologic: gregory, fluent speech, no tremor Psychiatric: Orientation: oriented x 3 and cooperative Results & Data ([facility]) Vital Signs (Past 12 Hours) Vital Signs Temp Pulse Pulse Resp BP BP Pulse Ox 08/11/21 14:05 93 08/11/21 12:04 37.2 C 79 20 152/74 H 87 L 08/11/21 11:13 78 155/80 H 94 08/11/21 09:59 79 18 147/76 H 94 08/11/21 06:57 36.5 C 77 16 118/68 92
--- NOTE | 2021-08-11 16:04 | Cardiology Progress Note ---
Date of Service August 11, 2021 Assessment & Plan (1) Elevated troponin: (2) Pulmonary edema: (3) Nonischemic cardiomyopathy: (4) CKD (chronic kidney disease) stage 4, GFR 15-29 ml/min: Plan: The patient's pro natruretic peptide is markedly elevated and this may be a combination of his ischemic cardiomyopathy, renal failure as well as congestion. I spoke with nephrology and they are going to increase his diuretic to 3 times daily. The patient has received therapies from his device today and according to him at least 2 other times during this hospital admission. His electrolytes are in order. I am going to add amiodarone with a loading dose of 200 mg 3 times daily. His Zocor will be lowered to 20 mg daily as recommended and we will follow his INR daily as his warfarin dose may have to be decreased. Admission and Anticipated Discharge Date Admission Date: August 01, 2021 Subjective The patient is sitting in a chair and appears to be comfortable. He does inform me that his ICD went off earlier today and was confirmed by interrogation. Patient states that his ICD is also gone off at least once or twice previously d uring this admission. Review of Systems Review of Systems: Review of Systems: See HPI for pertinent positives. All other 10 point review of systems are negative. In addition the patient has been sitting in a chair because he is more comfortable and less short of breath. When he lies flat he becomes dyspneic. Physical Exam Physical Exam: General: no acute distress and stated age Head: normocephalic, no masses, lesions, tenderness or abnormalities Eyes: conjunctiva are pink and non-injected, sclera clear Neck: supple, no adenopathy, no bruits, normal jugular venous pulse, no hepatojugular reflux Chest: normal shape and normal respiratory effort Lungs: clear to auscultation and percussion Cardiac Exam: - regular rate & rhythm, no murmurs gallops or rubs - normal S1, normal S2 Pulses: 2(+) throughout Abdomen: abdomen soft, non-tender, no abnormal masses and no hepatosplenomegaly Musculoskeletal: no gait disturbance, no joint inflammation, no deforming arthritis Extremities: no edema and no cyanosis Neuro: grossly normal exam Results & Data ([facility]) Vital Signs (Past 12 Hours) Vital Signs Temp Pulse Pulse Resp BP BP Pulse Ox 08/11/21 14:05 93 08/11/21 12:04 37.2 C 79 20 152/74 H 87 L 08/11/21 11:13 78 155/80 H 94 08/11/21 09:59 79 18 147/76 H 94 08/11/21 06:57 36.5 C 77 16 118/68 92 Laboratory Results Laboratory Results - last 24 hr 08/10/21 08/10/21 08/11/21 17:22 20:35 06:09 WBC RBC Hgb Hct MCV MCH MCHC RDW Std Deviation RDW Coeff of Nicolasa Plt Count MPV Immature Gran % (Auto) Neut % (Auto) Lymph % (Auto) Catron % (Auto) Eos % (Auto) Baso % (Auto) Neut # (Auto) Lymph # (Auto) Catron # (Auto) Eos # (Auto) Baso # (Auto) Immature Gran # (Auto) PT INR Sodium 134 L Potassium 4.7 Chloride 100 Carbon Dioxide 25 Anion Gap 9.0 BUN 73 H Creatinine 3.96 H D Est Cr Clr Drug Dosing 22.2 Est GFR ( Amer) 16.1 Est GFR (Non-Af Amer) 13.9 BUN/Creatinine Ratio 18.5 Glucose 155 H POC Glucose 83 120 H Calcium 9.4 Magnesium Troponin I NT-Pro-B Natriuret Pep 08/11/21 08/11/21 08/11/21 06:09 06:09 08:05 WBC RBC Hgb Hct MCV MCH MCHC RDW Std Deviation RDW Coeff of Nicolasa Plt Count MPV Immature Gran % (Auto) Neut % (Auto) Lymph % (Auto) Catron % (Auto) Eos % (Auto) Baso % (Auto) Neut # (Auto) Lymph # (Auto) Catron # (Auto) Eos # (Auto) Baso # (Auto) Immature Gran # (Auto) PT 24.1 H INR 2.6 H Sodium Potassium Chloride Carbon Dioxide Anion Gap BUN Creatinine Est Cr Clr Drug Dosing Est GFR ( Amer) Est GFR (Non-Af Amer) BUN/Creatinine Ratio Glucose POC Glucose 144 H Calcium Magnesium 2.9 H Troponin I NT-Pro-B Natriuret Pep 08/11/21 08/11/21 08/11/21 11:52 11:56 11:56 WBC 9.41 RBC 3.12 L Hgb 9.2 L Hct 29.1 L MCV 93.3 MCH 29.5 MCHC 31.6 L RDW Std Deviation 52.9 H RDW Coeff of Nicolasa 15.6 H Plt Count 304 MPV 10.4 Immature Gran % (Auto) 0.4 Neut % (Auto) 80.5 Lymph % (Auto) 7.1 Catron % (Auto) 7.4 Eos % (Auto) 4.3 Baso % (Auto) 0.3 Neut # (Auto) 7.57 H Lymph # (Auto) 0.67 L Catron # (Auto) 0.70 H Eos # (Auto) 0.40 Baso # (Auto) 0.03 Immature Gran # (Auto) 0.04 H PT INR Sodium Potassium Chloride Carbon Dioxide Anion Gap BUN Creatinine Est Cr Clr Drug Dosing Est GFR ( Amer) Est GFR (Non-Af Amer) BUN/Creatinine Ratio Glucose POC Glucose 139 H Calcium Magnesium Troponin I 0.125 H* NT-Pro-B Natriuret Pep 45295 H Medications Administered Current Inpatient Medications Acetaminophen (Acetaminophen 325 Mg Tab) 650 mg PO Q4H PRN PRN Reason: Pain or Fever Stop: 08/31/21 15:12 Last Admin: 08/10/21 19:37 Dose: 650 mg Documented by: Albuterol (Albuterol 0.083% Nebu Soln 3 Ml Vial) 2.5 mg NEB Q6R PRN PRN Reason: Shortness Of Breath Or Wheezing Stop: 09/01/21 12:59 Amiodarone HCl (Amiodarone 200 Mg Tab) 200 mg PO TIDM [facility] Stop: 09/10/21 16:59 Aspirin (Aspirin 81 Mg Ectab) [facility] Stop: 09/09/21 11:29 Last Admin: 08/11/21 09:07 Dose: 81 mg Documented by: Dextrose (Dextrose 50% 50 Ml Syringe) 25 - 50 ml IV UD PRN; Protocol PRN Reason: Hypoglycemia Protocol Stop: 08/31/21 15:12 Fenofibrate (Fenofibrate Nanocrystallized 48 Mg Tablet) 48 [facility] Stop: 09/01/21 08:59 Last Admin: 08/11/21 09:08 Dose: 48 mg Documented by: Glucagon (Glucagon For Inj 1 Mg Vial) 1 mg SQ UD PRN; Protocol PRN Reason: Hypoglycemia Protocol Stop: 08/31/21 15:12 Glucose (Glucose 10 Tabs/Tube) 4 - 8 tabs PO UD PRN; Protocol PRN Reason: Hypoglycemia Protocol Stop: 08/31/21 15:12 Glucose (Glucose 40% Gel 15 Gm Tube) 15 - 30 gm PO UD PRN; Protocol PRN Reason: Hypoglycemia Protocol Stop: 08/31/21 15:12 Hydralazine HCl (Hydralazine Tab 50 Mg Tab) 50 mg PO BID [facility] Stop: 08/31/21 20:59 Last Admin: 08/11/21 09:08 Dose: 50 mg Documented by: Bumetanide 2 mg/ Syringe 8 mls @ 4 mls/min IV BID@0900,1700 [facility] Stop: 09/10/21 16:59 Insulin Aspart (Insulin Aspart 100 Units/Ml 3 Ml Pen) 0 units SC DAILY@0730 RISHI; Protocol Stop: 09/07/21 07:29 Last Admin: 08/11/21 09:13 Dose: 20 units Documented by: Insulin Aspart (Insulin Aspart 100 Units/Ml 3 Ml Pen) 0 units SC TID@1130,1630,2100 RISHI; Protocol Stop: 09/06/21 11:29 Last Admin: 08/11/21 12:47 Dose: 7 units Documented by: Insulin Human NPH (Insulin Human Nph) 35 units SC BID@0800,2000 RISHI; Protocol Stop: 09/09/21 08:29 Last Admin: 08/11/21 09:15 Dose: 35 units Documented by: Isosorbide Dinitrate (Isosorbide Dinitrate 20 Mg Tab) 20 mg PO 0700,1200,1700 [facility] Stop: 09/01/21 13:29 Last Admin: 08/11/21 11:25 Dose: 20 mg Documented by: Levothyroxine Sodium (Levothyroxine Sodium 112 Mcg Tablet) 112 mcg PO QAM [facility] Stop: 09/01/21 08:59 Last Admin: 08/11/21 09:07 Dose: 112 mcg Documented by: Metoprolol Succinate (Metoprolol Succ 50mg Ext Rel Tab) 50 mg PO BID [facility] Stop: 09/01/21 20:59 Last Admin: 08/11/21 09:08 Dose: 50 mg Documented by: Miscellaneous (Carbohydrates For Hypoglycemia ) 15 - 30 gm PO UD PRN PRN Reason: Hypoglycemia Protocol Stop: 08/31/21 15:12 Last Admin: 08/08/21 17:23 Dose: 15 gm Documented by: Miscellaneous Information (Pharmacy Glycemic Mgmt Consult) 1 ea N/A UD PRN PRN Reason: Consult Stop: 09/01/21 14:58 *Durezol*Non- Formulary Patient's Own Med 1 ea OPL BID [facility] Stop: 08/16/21 23:59 Last Admin: 08/11/21 09:06 Dose: 1 drops Documented by: *Prolensa*Non- Formulary Patient's Own Med 1 ea OPL DAILY [facility] Stop: 08/16/21 23:59 Last Admin: 08/11/21 09:20 Dose: 1 drops Documented by: Ondansetron HCl (Ondansetron Inj 2 Mg/Ml 2 Ml Vial) 4 mg IV Q6H PRN PRN Reason: Nausea Stop: 08/31/21 15:12 Last Admin: 08/10/21 07:46 Dose: 4 mg Documented by: Polyethylene Glycol (Polyethylene (Miralax) 17 Gm Pack) 17 gm PO DAILY PRN PRN Reason: Constipation Stop: 08/31/21 15:12 Last Admin: 08/05/21 12:24 Dose: 17 gm Documented by: Sennosides (Senna 8.6 Mg Tab) 8.6 mg PO QPM [facility] Stop: 09/04/21 20:59 Last Admin: 08/10/21 21:18 Dose: 8.6 mg Documented by: Simvastatin (Simvastatin 20 Mg Tab) 20 mg PO QAM [facility] Stop: 09/11/21 08:59 Warfarin Sodium (Warfarin Sod 3 Mg Tab) 3 mg PO DAILY@1600 [facility] Stop: 09/09/21 15:59 Last Admin: 08/10/21 16:30 Dose: 3 mg Documented by: Warfarin Sodium (Warfarin Sod 4 Mg Tab) 4 mg PO DAILY@1600 [facility] Stop: 09/09/21 15:59 Last Admin: 08/10/21 16:30 Dose: 4 mg Documented by: (1) Pulmonary edema Chronicity: acute Qualified Code(s): J81.0 - Acute pulmonary edema
[2021-08-11] MEDS: AMIODARONE 200 MG TAB PO SCH (16:43)
[2021-08-11] MEDS: WARFARIN SOD 3 MG TAB PO SCH (16:44)
[2021-08-11] MEDS: WARFARIN SOD 4 MG TAB PO SCH (16:45)
[2021-08-11] MEDS: BUMETANIDE 2 MG in SYRINGE 0 ML IV SCH (16:46)
[2021-08-11] MEDS: ACETAMINOPHEN 325 MG TAB PO PRN (19:44)
[2021-08-11] MEDS: SENNA 8.6 MG TAB PO SCH (20:12)
--- NOTE | 2021-08-11 20:47 | Electrocardiogram Report ---
Test Reason : Blood Pressure : / mmHG Vent. Rate : 080 BPM Atrial Rate : 075 BPM P-R Int : 000 ms QRS Dur : 148 ms QT Int : 454 ms P-R-T Axes : 057 -63 133 degrees QTc Int : 523 ms Ventricular-paced rhythm with occasional AV dual-paced complexes and with occasional Premature ventri cular complexes Abnormal ECG When compared with ECG of 02-AUG-2021 06:06, Vent. rate has decreased BY 8 BPM Confirmed by Larry Berman ([id number]) on 08/11/2021 8:46:42 PM Referred By: REFERRED SELF Confirmed By:Larry Berman
[2021-08-12] MEDS: ASPIRIN 81 MG ECTAB PO SCH (08:06)
[2021-08-12] MEDS: METOPROLOL SUCC 50MG EXT REL TAB PO SCH ×2 (08:06→20:35)
[2021-08-12] MEDS: AMIODARONE 200 MG TAB PO SCH ×3 (08:06→17:19)
[2021-08-12] MEDS: ISOSORBIDE DINITRATE 20 MG TAB PO SCH ×3 (08:06→17:19)
[2021-08-12] MEDS: LEVOTHYROXINE SODIUM 112 MCG TABLET PO SCH (08:07)
[2021-08-12] MEDS: BUMETANIDE 2 MG in SYRINGE 0 ML IV SCH ×2 (08:07→17:17)
[2021-08-12] MEDS: FENOFIBRATE NANOCRYSTALLIZED 48 MG TABLET PO SCH (08:07)
[2021-08-12] MEDS: hydrALAZINE TAB 50 MG TAB PO SCH ×2 (08:07→20:36)
[2021-08-12] MEDS: INSULIN HUMAN NPH SC SCH ×2 (08:08→20:35)
[2021-08-12] MEDS: DUREZOL OPL SCH ×2 (08:08→20:41)
[2021-08-12 08:14] LABS: INR 2.4 (0.9-1.1); Prothrombin Time 22.9 Seconds (9.0-12.0)
[2021-08-12] MEDS: INSULIN ASPART 100 UNITS/ML 3 ML PEN SC SCH ×4 (08:15→20:39)
[2021-08-12] MEDS: PROLENSA OPL SCH (08:20)
[2021-08-12 08:30] LABS: BUN Creatinine Ratio 19.8 (10-20); Calcium 9.4 mg/dl (8.5-10.1); Creatinine Clr Calc Pharmacy 22.1 ml/min; Est GFR (Non-African American) 13.8 ml/min; Potassium 4.2 mmol/L (3.5-5.1)
[2021-08-12 08:55] LABS: Troponin I 0.136 ng/ml (0-0.045)
[2021-08-12] MEDS ORDERED: SIMVASTATIN 20 MG TAB PO SCH (09:00)
--- NOTE | 2021-08-12 10:03 | Nephrology Progress Note ---
Date of Service August 12, 2021 Assessment & Plan Admission and Anticipated Discharge Date Admission Date: August 01, 2021 Subjective Assessment & Plan Admission and Anticipated Discharge Date Admission Date: August 01, 2021 Subjective Assessment & Plan (1) CKD (chronic kidney disease) stage 4, GFR 15-29 ml/min: Plan: baseline creatinine spring/summer 2020 --3.7 So current creat of 3.9 is really within his baseline range overall. I expect some rise in creat in the coming days. Quite possible recent episodes of Defibb firing is affecting renal function and urine output. Subacute heart failure with extensive apical, septal scar and troponin patterns concerning for myocardial ischemia. we have this admission discussed possibility that if heart conditions worsen abruptly and he has car diac cath his renal function may also worsen to where would need decision about dialysis. He appreciated the discussion; does continue to feel that "going to a center for 4 hrs 3 times a week is bullshit" and not something he'd be inclined to do; not a final decision however; he is willing to cont to discuss. -daily bmp -continue bumex 2 mg bid IV ( uo increased to 3300 ml yesterday--good and creat stable). -cont FR 1.5L -he has historically refused to discuss dialysis but need to cont to discuss in setting of ongoing cardiac and overload issues. But does not look like he will n eed this admission. -note pt has 08/15 appt in CKD clinic w/me - pls have him keep appt or reschedule w/in 1-2 wks of d/c if he does not attend Subjective went into Vifbb/V tach and AICD fired few times . Now in tele floor. has SOB and orthopnea. Review of Systems Review of Systems: All systems reviewed & are unremarkable except as noted in Subjective Physical Exam Constitutional: well developed, well nourished, + obese and comfortable (sitting on side of bed on RA); no acute distress Eyes: EOM intact bilaterally ENMT: Ears: no external ear abnormality Nose: no external nose abnormality Mouth: + dry oral mucous membranes Neck: no nuchal rigidity Respiratory: normal respiratory effort (on 02NC) Auscultation: + diminished lung sounds (markedly) Cardiovascular: Rate/Rhythm: regular rate and regular rhythm Heart Sounds: normal S1 and normal S2; no murmur Extremities: + edema (trace pretibial) Gastrointestinal (Abdomen): Inspection/Auscultation: normal bowel sounds Percussion/Palpation: abdomen soft; abdomen nontender Musculoskeletal: Extremities: strength 5/5 throughout and + lower leg abnormality (R BKA) Skin: no rashes, warm and dry Neurologic: gregory, fluent speech, no tremor Psychiatric: Orientation: oriented x 3 and cooperative Results & Data ([facility]) Vital Signs (Past 12 Hours) Vital Signs Temp Pulse Resp BP Pulse Ox 08/12/21 07:00 37.0 C 83 18 124/72 96 08/12/21 03:19 36.8 C 64 20 136/75 97 08/11/21 23:12 36.7 C 67 20 122/69 99
--- NOTE | 2021-08-12 13:19 | Palliative Care Consultation ---
Date of Consultation August 12, 2021 Assessment & Plan (1) Palliative care encounter: Mr. Warren is a 75 year old male who presented to the [facility] with hypoxia and dyspnea. He recently had cataract surgery and was discharged and started to experience the symptoms when he returned home. On admission he had a chest xray showing some pulmonary congestion. 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 He is routinely non- compliant with his medications at home. He does live alone at home and is relatively independent, still driving, but does require 2LNC of supplemental oxygen. He has a pacemaker defibrillator and this admission has gone into SVT and has received a total of 6 shocks being delivered. His BNP is elevated at 11,671 and his Troponin peaked at 0.156. Nephrology has evaluated this individual as his creatinine is now 3.97. Hemodialysis has been recommended, but the patient has declined. Palliative Medicine was consulted to discuss overall goals of care, including code status. I met with Elfego at his bedside. He was sitting in his bedside chair in no apparent distress and he had just finished his lunch without difficulties. He had a flat affect throughout my conversation with him. I asked him to describe his home environment and he stated that he has one or two steps to enter his home, but it is otherwise all one-story living. He stated that he has utilized meals on wheels service for the past two years. He has a sister in law, Dedra, a daughter Lisa in [place] and a son, Obinna who is local and helps from time to time. 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 I asked him what brings him joey or makes him happy. He said 'nothing really'. As I mentioned, he was pretty flat, almost appearing depressed. He said that he feels like he is "just like a car as he gets older, the older I get the more worn out I feel". I asked him to discuss more about his thought process regarding not wishing to pursue hemodialysis. He stated that his sister was a dialysis patient and he watched her go through that, and then saw how fast she after stopping dialysis. He said he just cant see himself dedicating all of that time to doing the treatment. He said 'when its my time, it just is'. We talked about his code status and he said he would not want CPR nor a ventilator. He said he would not want his famiyl to make that decision either and if its unlikely to fix anything anyway, why do it. He did express that he knows what 'shocks feel like' and doesn't want more misery. Code status changed to DNR/DNI as reflective of our conversation. He said that his daughter has been looking into SNF placement. He said that does make him sad because he would want to stay at home, but does recognize he may need more assistance as his life progresses. He started out the window for most of our conversation, although he was willing and engaged in the conversation, but appears to be doing a lot of reflection into his current situation and how this could affect him longer term. Per nursing, the patient has had good interactions with her and does not seem to have as flat of an affect. For now, his goal is to return home with some home health services. He was not interested in talking about hospice for now, but most certainly he would qualify for such services. The above was communicated with nursing, case management and the hospitalist. Palliative Medicine will follow. (2) Amputated below knee: (3) Hypoxia: (4) Chronic kidney insufficiency: Chronic kidney disease stage: stage 3 (moderate) Chronic kidney disease stage 3 subtype: stage 3b (GFR 30-44) Qualified Code(s): N18.32 - Chronic kidney disease, stage 3b (5) Ventricular arrhythmia: History of Present Illness Reason for Consultation: Goals of care Requesting Physician: Dr. Canada Attending Physician: Tanner Kim History of Present Illness Mr. Warren is a 75 year old male who presented to the [facility] with hypoxia and dyspnea. He recently had cataract surgery and was discharged and started to experience the symptoms when he returned home. On admission he had a chest xray showing some pulmonary congestion. 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 He is routinely non-compliant with his medications at home. He does live alone at home and is relatively i ndependent, still driving, but does require 2LNC of supplemental oxygen. He has a pacemaker defibrillator and this admission has gone into SVT and has received a total of 6 shocks being delivered. His BNP is elevated at 11,671 and his Troponin peaked at 0.156. Nephrology has evaluated this individual as his creatinine is now 3.97. Hemodialysis has been recommended, but the patient has declined. Palliative Medicine was consulted to discuss overall goals of care, including code status. Please see A/P for further details. Thanks for involving Palliative Medicine with this individual. Allergies Allergy/AdvReac Type Severity Reaction Status Date / Time No Known Allergies Allergy Verified 08/01/21 06:39 Home Medications Medication Instructions Recorded Confirmed Type allopurinol 300 mg tablet 300 mg PO QAM 04/22/19 08/01/21 History fenofibrate nanocrystallized 48 mg 48 mg PO QAM 04/22/19 08/01/21 History tablet hydralazine 50 mg tablet 50 mg PO BID 04/22/19 08/01/21 History insulin aspar prt-insulin aspart 90 unit SUBCUT QPM 04/22/19 08/01/21 History 100 unit/mL (70-30) subcutaneous soln (Novolog Mix 70-30 U-100 Insuln) insulin aspar prt-insulin aspart 100 unit SUBCUT QAM 04/22/19 08/01/21 History 100 unit/mL (70-30) subcutaneous soln (Novolog Mix 70-30 U-100 Insuln) levothyroxine 112 mcg tablet 112 mcg PO QAM 04/22/19 08/01/21 History metoprolol tartrate 50 mg tablet 50 mg PO BID 04/22/19 08/01/21 History simvastatin 40 mg tablet 40 mg PO QAM 04/22/19 08/01/21 History cholecalciferol (vitamin D3) 25 1,000 unit PO QAM 05/31/19 08/01/21 History mcg (1,000 unit) capsule (Vitamin D3) omega-3 360 mg-dha 144 mg-epa 216 1 cap PO QAM 05/31/19 08/01/21 History mg-fish oil 1,200 mg capsule,del rel (Fish Oil) furosemide 40 mg tablet 40 mg PO QAM tab 05/15/21 08/01/21 History warfarin 1 mg tablet 2 mg PO DAILY tab 05/15/21 08/01/21 History warfarin 5 mg tablet 5 mg PO DAILY tab 05/15/21 08/01/21 History ascorbic acid (vitamin C) 500 mg 500 mg PO DAILY 08/01/21 08/01/21 History tablet (Vitamin C) difluprednate 0.05 % eye drops 1 drp OPL BID 08/01/21 08/01/21 History (Durezol) gatifloxacin 0.5 % eye drops 1 drp OPL TID 08/01/21 08/01/21 History Patient History Medical History (Updated 08/12/21 @ 13:19 by KEATON Rocha) Atrial fibrillation 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 Bilateral interstitial pneumonia hx CAD (coronary artery disease) Cardiac defibrillator in place [facility] with [facility] cardiology ([facility]) CHF (congestive heart failure) CKD (chronic kidney disease) stage 4, GFR 15-29 ml/min Heart disease Hx of colonic polyps Hyperlipidemia Hypertension Hypothyroidism ICD (implantable cardioverter-defibrillator) battery depletion Pt with BiV ICD at [facility]; for a generator change; discussed the procedure and potential risks with the patient which include but not limited to , arrhythmia, stroke, heart attack, bleeding and infection. consent obtained LBBB (left bundle branch block) Myocardial Infarction (~2007) reason for the cardio/defib. 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 and converted to a BiV in 02/2013 with recent generator exchange 04/19/19 History of colonoscopy History of left heart catheterization No obstructive coronary disease, 2007 Family History Father Stroke Mother Diabetes Social History Smoking Status: Former smoker Tobacco Type: Cigarettes Cigarettes Per Day: 1983; Second Hand Exposure: No; Do You Dip or Chew Tobacco: No; Tobacco Cessation Education Requested by Patient: No Hx Alcohol Use: No Hx Substance Use: No Preferred Language: Ugandan Communication Ability: Effective Visual Impairment: Limited Hearing Ability: Normal [employer] Worker Required: No Beliefs That Will Affect Care: None marital status: Current Living Situation: Alone Current Living Situation Comment: lives in house alone current occupational status: retired How many Children do You have: 2 How many Children do You have Comment: family fairly local and able to help with care Other Information That Helps Us Care for You: No Feels Safe at Home: Yes Safety Concerns: Feels Safe At This Time Diet Comment: stated he "watches sweet", but it's difficult Assistive Devices: Cane, Oxygen - Continuous, Prosthesis and Special Shoe Assistive Devices Comment: Uses a wheelchair to get around the house, uses a cane while outside Review of Systems Review of Systems: Regent System Assessment Scale: Pain: 1/3 Tiredness: 0/3 SOB: 0/3 Lack of appetite: 0/3 Palliative Performance Scale: 40% Physical Exam Constitutional: + frail appearing, cooperative and comfortable ENMT: Mouth: + poor dentition Respiratory: normal respiratory effort Auscultation: + diminished lung sounds Cardiovascular: Rate/Rhythm: regular rate and regular rhythm Heart Sounds: normal S1 and normal S2 Extremities: normal capillary refill Gastrointestinal (Abdomen): Inspection/Auscultation: abdomen normal to inspection and normal bowel sounds Percussion/Palpation: abdomen soft Skin: + ecchymosis and + pallor Psychiatric: Orientation: alert and oriented x 3 Eye Contact: + fair eye contact Affect: + flat affect Insight: good insight Judgement: good judgement Results & Data ([facility]) Vital Signs (Past 12 Hours) Vital Signs Temp Pulse Resp BP Pulse Ox 08/12/21 12:09 37.0 C 56 L 18 128/63 98 08/12/21 07:00 37.0 C 83 18 124/72 96 08/12/21 03:19 36.8 C 64 20 136/75 97 PG Care Time/CCT Total # of Minutes Spent Total Time Spent with Patient: Total time spent is greater than 50% in coordination of care (as documented) at patient's floor/unit and/or counseling patient: 70 minutes with > 50% of that time spent assessing the patient, discussing goals of care with the patient, and collaborating with IDT Coding Level of Care Code 86826 Inpt Consult Level 3 Diagnoses Palliative care encounter Z51.5 Amputated below knee Z89.519 Hypoxia R09.02 Chronic kidney insufficiency N18.32 Chronic kidney disease stage: stage 3 (moderate) Chronic kidney disease stage 3 subtype: stage 3b (GFR 30-44) Ventricular arrhythmia I49.9 Time Spent (min) 70
--- NOTE | 2021-08-12 14:18 | Cardiology Progress Note ---
Date of Service August 12, 2021 Assessment & Plan (1) Elevated troponin: (2) Pulmonary edema: (3) Nonischemic cardiomyopathy: (4) CKD (chronic kidney disease) stage 4, GFR 15-29 ml/min: Plan: The patient has had a good diuresis after his diuretics were increased. On the telemetry he has had no significant arrhythmias and he has not received any additional therapies from his ICD. He is tolerating the amiodarone which should be continued. I held his Zocor because of the risk of rhabdomyolysis while on the amiodarone and fenofibrate. He was on 40 mg of Zocor and the recommendation would be less than 20 mg while on amiodarone however, with the addition of fenofibrate we may consider either switching him to a different statin or reducing the Zocor to 10 mg daily. Admission and Anticipated Discharge Date Admission Date: August 01, 2021 Subjective The patient is comfortably sitting in a chair and has no complaints. Review of Systems Review of Systems: Review of Systems: See HPI for pertinent positives. All other 10 point review of systems are negative. Physical Exam Physical Exam: General: no acute distress and stated age Head: normocephalic, no masses, lesions, tenderness or abnormalities Eyes: conjunctiva are pink and non-injected, sclera clear Neck: supple, no adenopathy, no bruits, normal jugular venous pulse, no hepatojugular reflux Chest: normal shape and normal respiratory effort Lungs: clear to auscultation and percussion Cardiac Exam: - regular rate & rhythm, no murmurs gallops or rubs - normal S1, normal S2 Pulses: 2(+) throughout Abdomen: abdomen soft, non-tender, no abnormal masses and no hepatosplenomegaly Musculoskeletal: no gait disturbance, no joint inflammation, no deforming arthritis Extremities: no edema and no cyanosis Neuro: grossly normal exam Results & Data ([facility]) Vital Signs (Past 12 Hours) Vital Signs Temp Pulse Resp BP Pulse Ox 08/12/21 12:09 37.0 C 56 L 18 128/63 98 08/12/21 07:00 37.0 C 83 18 124/72 96 08/12/21 03:19 36.8 C 64 20 136/75 97 Laboratory Results Laboratory Results - last 24 hr 09/19/21 09/19/21 09/19/21 16:13 16:14 16:40 PT INR Sodium Potassium Chloride Carbon Dioxide Anion Gap BUN Creatinine Est Cr Clr Drug Dosing Est GFR ( Amer) Est GFR (Non-Af Amer) BUN/Creatinine Ratio Glucose POC Glucose 66 L* 70 91 Calcium Troponin I NT-Pro-B Natriuret Pep 08/11/21 08/11/21 08/12/21 19:45 21:20 07:31 PT INR Sodium Potassium Chloride Carbon Dioxide Anion Gap BUN Creatinine Est Cr Clr Drug Dosing Est GFR ( Amer) Est GFR (Non-Af Amer) BUN/Creatinine Ratio Glucose POC Glucose 160 H 117 H Calcium Troponin I 0.156 H* NT-Pro-B Natriuret Pep 08/12/21 08/12/21 08/12/21 07:44 07:44 11:05 PT 22.9 H INR 2.4 H Sodium 135 L Potassium 4.2 Chloride 100 Carbon Dioxide 27 Anion Gap 8.0 BUN 79 H Creatinine 3.97 H Est Cr Clr Drug Dosing 22.1 Est GFR ( Amer) 16.0 Est GFR (Non-Af Amer) 13.8 BUN/Creatinine Ratio 19.8 Glucose 103 H POC Glucose 188 H Calcium 9.4 Troponin I 0.136 H* NT-Pro-B Natriuret Pep 48589 H Medications Administered Current Inpatient Medications Acetaminophen (Acetaminophen 325 Mg Tab) 650 mg PO Q4H PRN PRN Reason: Pain or Fever Stop: 08/31/21 15:12 Last Admin: 08/11/21 19:44 Dose: 650 mg Documented by: Albuterol (Albuterol 0.083% Nebu Soln 3 Ml Vial) 2.5 mg NEB Q6R PRN PRN Reason: Shortness Of Breath Or Wheezing Stop: 09/01/21 12:59 Amiodarone HCl (Amiodarone 200 Mg Tab) 200 mg PO TIDM RISHI Stop: 09/10/21 16:59 Last Admin: 08/12/21 12:48 Dose: 200 mg Documented by: Aspirin (Aspirin 81 Mg Ectab) 81 mg PO QAM RISHI Stop: 09/09/21 11:29 Last Admin: 08/12/21 08:06 Dose: 81 mg Documented by: Dextrose (Dextrose 50% 50 Ml Syringe) 25 - 50 ml IV UD PRN; Protocol PRN Reason: Hypoglycemia Protocol Stop: 08/31/21 15:12 Fenofibrate (Fenofibrate Nanocrystallized 48 Mg Tablet) 48 mg PO QAM [facility] Stop: 09/01/21 08:59 Last Admin: 08/12/21 08:07 Dose: 48 mg Documented by: Glucagon (Glucagon For Inj 1 Mg Vial) 1 mg SQ UD PRN; Protocol PRN Reason: Hypoglycemia Protocol Stop: 08/31/21 15:12 Glucose (Glucose 10 Tabs/Tube) 4 - 8 tabs PO UD PRN; Protocol PRN Reason: Hypoglycemia Protocol Stop: 08/31/21 15:12 Glucose (Glucose 40% Gel 15 Gm Tube) 15 - 30 gm PO UD PRN; Protocol PRN Reason: Hypoglycemia Protocol Stop: 08/31/21 15:12 Hydralazine HCl (Hydralazine Tab 50 Mg Tab) 50 mg PO BID [facility] Stop: 08/31/21 20:59 Last Admin: 08/12/21 08:07 Dose: 50 mg Documented by: Bumetanide 2 mg/ Syringe 8 mls @ 4 mls/min IV BID@0900,1700 [facility] Stop: 09/10/21 16:59 Last Admin: 08/12/21 08:07 Dose: 4 mls/min Documented by: Insulin Aspart (Insulin Aspart 100 Units/Ml 3 Ml Pen) 0 units SC DAILY@0730 RISHI; Protocol Stop: 09/07/21 07:29 Last Admin: 08/12/21 08:15 Dose: 21 units Documented by: Insulin Aspart (Insulin Aspart 100 Units/Ml 3 Ml Pen) 0 units SC TID@1130,1630,2100 RISHI; Protocol Stop: 09/06/21 11:29 Last Admin: 08/12/21 12:46 Dose: 12 units Documented by: Insulin Human NPH (Insulin Human Nph) 35 units SC BID@0800,2000 RISHI; Protocol Stop: 09/09/21 08:29 Last Admin: 08/12/21 08:08 Dose: 35 units Documented by: Isosorbide Dinitrate (Isosorbide Dinitrate 20 Mg Tab) 20 mg PO 0700,1200,1700 [facility] Stop: 09/01/21 13:29 Last Admin: 08/12/21 12:47 Dose: 20 mg Documented by: Levothyroxine Sodium (Levothyroxine Sodium 112 Mcg Tablet) [facility] Stop: 09/01/21 08:59 Last Admin: 08/12/21 08:07 Dose: 112 mcg Documented by: Metoprolol Succinate (Metoprolol Succ 50mg Ext Rel Tab) 50 mg PO BID [facility] Stop: 09/01/21 20:59 Last Admin: 08/12/21 08:06 Dose: 50 mg Documented by: Samanthacellaneous (Carbohydrates For Hypoglycemia ) 15 - 30 gm PO UD PRN PRN Reason: Hypoglycemia Protocol Stop: 08/31/21 15:12 Last Admin: 08/08/21 17:23 Dose: 15 gm Documented by: Samanthacellaneous Information (Pharmacy Glycemic Mgmt Consult) 1 ea N/A UD PRN PRN Reason: Consult Stop: 09/01/21 14:58 *Durezol*Non- Formulary Patient's Own Med 1 ea OPL BID [facility] Stop: 08/16/21 23:59 Last Admin: 08/12/21 08:08 Dose: 1 drops Documented by: *Prolensa*Non- Formulary Patient's Own Med 1 ea OPL DAILY [facility] Stop: 08/16/21 23:59 Last Admin: 08/12/21 08:20 Dose: 1 drops Documented by: Ondansetron HCl (Ondansetron Inj 2 Mg/Ml 2 Ml Vial) 4 mg IV Q6H PRN PRN Reason: Nausea Stop: 08/31/21 15:12 Last Admin: 08/10/21 07:46 Dose: 4 mg Documented by: Polyethylene Glycol (Polyethylene (Miralax) 17 Gm Pack) 17 gm PO DAILY PRN PRN Reason: Constipation Stop: 08/31/21 15:12 Last Admin: 08/05/21 12:24 Dose: 17 gm Documented by: Sennosides (Senna 8.6 Mg Tab) 8.6 mg PO QPM [facility] Stop: 09/04/21 20:59 Last Admin: 08/11/21 20:12 Dose: 8.6 mg Documented by: Simvastatin (Simvastatin 20 Mg Tab) 20 mg PO QAM [facility] Stop: 09/11/21 08:59 Last Admin: 08/12/21 08:06 Dose: 20 mg Documented by: Warfarin Sodium (Warfarin Sod 3 Mg Tab) 3 mg PO DAILY@1600 [facility] Stop: 09/09/21 15:59 Last Admin: 08/11/21 16:44 Dose: 3 mg Documented by: Warfarin Sodium (Warfarin Sod 4 Mg Tab) 4 mg PO DAILY@1600 [facility] Stop: 09/09/21 15:59 Last Admin: 08/11/21 16:45 Dose: 4 mg Documented by: (1) Pulmonary edema Chronicity: acute Qualified Code(s): J81.0 - Acute pulmonary edema
--- NOTE | 2021-08-12 15:14 | Hospitalist Progress Note ---
Date of Service August 12, 2021 Assessment & Plan (1) Ventricular arrhythmia: Plan: Per pacemaker interrogation total x6 VF shocks this admission. Episodes started on August 08 but provider not aware until today. Additional 5 episodes NSVT mostly last 2 nights. Transferred to PCU Discussed with Dr Thomas and patient started on amiodarone (2) CHF (congestive heart failure): Plan: Acute on chronic heart failure- HFrEF with chronic renal failure - patient endorses symptoms worsening over the past 1-2 months - continues to diurese with negative balance on Bumex 1mg IV BID although weight now starting to increase. Despite net negative 1L per day he has not made significant progress with his shortness of breath and hypoxia. Discussed with Dr Reina and will increase to 2mg IV BID (additional 1mg given this morning to total 4mg today). Given lack of progress and patient unwillingness for dialysis. Appreciate palliative care consult: now dnr/dni - BNP increasing although I suspect that is related to cardiac arrhythmias +/- defibrillation - TTE - LVEF 40-45%, focal severe hypokinesis of the mid and apical septus with mild diffuse LV, mild-mod aortic stenosis - strict I&Os, daily weights (3) Nonischemic cardiomyopathy: Plan: Continue metoprolol succinate 50mg PO BID Unable to take ACEi/ARB due to CKD stage IV (4) Hypoxia: Plan: *Acute respiratory failure with hypoxia Now on 3 liters CHF - diurese as above Infectious cause ruled out - Patient feels breathing has improved since coming to ER - Oxygen support for SPO2 >94% - Procalcitonin negative - Repeat CXR 08/08 stable but not improving (5) Elevated troponin: Plan: Likely type II secondary to hypoxia and volume stress - trop peaked at 7.98 - Due to lack of symptoms and CKD, risk of cardiac cath (CKD) outweighs benefit - consulted cardio: no cardiac cath is indicated at the moment due to decreased kidney function - started aspirin as unable to rule out coronary artery disease, although he has known nonischemic cardiomyopathy unable to perform current cardiac cath (6) CKD (chronic kidney disease) stage 4, GFR 15-29 ml/min: Plan: Chronic, suspect recent increase in Cr due to cardiac arrhythmias - follow BMP daily with scotty (7) Biventricular ICD (implantable cardioverter-defibrillator) in place: Plan: BiV- DDDR (afib underlying) Rate 60BMP; Upper tracking 120; Upper AT 170, VF: >200 - Appropriate fire and capture on ECG (8) Atrial fibrillation: Plan: As above - continue metoprolol - restarted warfarin 08/05, now therapeutic but likely to become supratherapeutic as amiodarone started. Check INR daily. (9) Hypertension: Plan: Continue Hydralazine, Metoprolol, ISDN, diuretics as above - adjustment may be needed following evaluation and diuresing (10) Chronic venous insufficiency: Plan: Follows with wound care- well healed ulcerations to left leg- patient is phyllis compression stocking (11) Hypothyroidism: Plan: TSH WNL in Dec Continue levothyroxine 112 mcg PO daily (12) T2DM (type 2 diabetes mellitus): Plan: HbA1C 9.3 Appreciate pharmacy consult for basal bolus insulin control GLP-1 possibility recommended by community educator however in setting of CKD stage IV would advise against this given paucity of evidence in these patients Plan: VTE Prophylaxis - continue warfarin 7mg PO daily but likely to become supratherapeutic and may need reduction with starting on amiodarone, PTINR daily Diet - heart healthy, low sodium, T2DM, fluid restricted 1500ml Disposition - transferred to PCU Admission and Anticipated Discharge Date Admission Date: August 01, 2021 Subjective Patient reports no new symptoms at this time. Review of Systems Review of Systems: All systems reviewed & are unremarkable except as noted in HPI & below Physical Exam Physical Exam: General: awake, alert, no apparent distress Head: Normocephalic, atraumatic ENT: PERRL, EOMI, no pharyngeal exudate, mucous membranes moist Neuro: AAO x 3, speech clear and appropriate, strength intact bilaterally 5/5 (excluding right BKA), sensation intact and equal all extremities and dermatomes, no pronator drift Chest: equal rise and fall of the chest, scattered crackles through out with end expiratory wheeze in the bases, on 2 Liters nasal cannula Cardiac: Regular rate and rhythm, telemetry reviewed- 100% V Pace, skin warm dry, cap refill <3 seconds, peripheral pulses +2 no JVD, systollic murmur radiates to carotids, +2 edema to left lower leg up to just below the knee GI: NABS x 4 quadrants, soft, nontender to palpation, no rebound, guarding or tenderness : Spontaneously voiding, no pain, no CVA tenderness, does endorse some difficulty completely emptying bladder Extremities: Normal inspection, no peripheral edema or erythema, calfs nontender to palpation Psych: Normal mood and affect Skin: well healing venous ulcerations to left lower leg Results & Data Results & Data ([facility]) Vital Signs (Past 12 Hours) Vital Signs Temp Pulse Resp BP Pulse Ox 08/12/21 12:09 37.0 C 56 L 18 128/63 98 08/12/21 07:00 37.0 C 83 18 124/72 96 08/12/21 03:19 36.8 C 64 20 136/75 97 PG Care Time/CCT Total # of Minutes Spent Total Time Spent with Patient: Total time spent is greater than 50% in coordination of care (as documented) at patient's floor/unit and/or counseling patient: Coding Level of Care Code 02036 Subseq Hosp Care Lvl 2 Diagnoses Ventricular arrhythmia I49.9 CHF (congestive heart failure) I50.9 Nonischemic cardiomyopathy I42.8 Hypoxia R09.02 Elevated troponin R77.8 CKD (chronic kidney disease) stage 4, GFR 15-29 ml/min N18.4 Biventricular ICD (implantable cardioverter-defibrillator) in place Z95.810 Atrial fibrillation I48.91 Atrial fibrillation type: unspecified Hypertension I10 Hypertension type: essential hypertension Chronic venous insufficiency I87.2 Hypothyroidism E03.9 Hypothyroidism type: acquired T2DM (type 2 diabetes mellitus) E11.9 (1) Atrial fibrillation Atrial fibrillation type: unspecified Qualified Code(s): I48.91 - Unspecified atrial fibrillation (2) Hypothyroidism Hypothyroidism type: acquired Qualified Code(s): E03.9 - Hypothyroidism, unspecified (3) Hypertension Hypertension type: essential hypertension Qualified Code(s): I10 - Essential (primary) hypertension
[2021-08-12] MEDS: WARFARIN SOD 3 MG TAB PO SCH (17:18)
[2021-08-12] MEDS: WARFARIN SOD 4 MG TAB PO SCH (17:18)
[2021-08-12] MEDS: ACETAMINOPHEN 325 MG TAB PO PRN (19:35)
[2021-08-12] MEDS: SENNA 8.6 MG TAB PO SCH (20:38)
[2021-08-13] MEDS: ACETAMINOPHEN 325 MG TAB PO PRN (05:14)
[2021-08-13 07:53] LABS: INR 2.7 (0.9-1.1); Prothrombin Time 25.6 Seconds (9.0-12.0)
[2021-08-13] MEDS ORDERED: INSULIN HUMAN NPH SC SCH ×4 (08:00→20:00)
[2021-08-13] MEDS: PROLENSA OPL SCH (08:04)
[2021-08-13] MEDS: ASPIRIN 81 MG ECTAB PO SCH (08:06)
[2021-08-13] MEDS: LEVOTHYROXINE SODIUM 112 MCG TABLET PO SCH (08:06)
[2021-08-13] MEDS: ISOSORBIDE DINITRATE 20 MG TAB PO SCH ×3 (08:06→16:37)
[2021-08-13] MEDS: FENOFIBRATE NANOCRYSTALLIZED 48 MG TABLET PO SCH (08:06)
[2021-08-13 08:07] LABS: BUN Creatinine Ratio 19.8 (10-20); Calcium 9.4 mg/dl (8.5-10.1); Creatinine Clr Calc Pharmacy 21.7 ml/min; Est GFR (African American) 15.9 ml/min; Est GFR (Non-African American) 13.8 ml/min; Potassium 4.2 mmol/L (3.5-5.1)
[2021-08-13] MEDS: hydrALAZINE TAB 50 MG TAB PO SCH ×2 (08:07→20:34)
[2021-08-13] MEDS: METOPROLOL SUCC 50MG EXT REL TAB PO SCH ×2 (08:07→20:33)
[2021-08-13] MEDS: AMIODARONE 200 MG TAB PO SCH ×3 (08:07→16:37)
[2021-08-13] MEDS: BUMETANIDE 2 MG in SYRINGE 0 ML IV SCH ×2 (08:07→16:35)
[2021-08-13] MEDS: INSULIN ASPART 100 UNITS/ML 3 ML PEN SC SCH ×4 (08:09→20:37)
[2021-08-13] MEDS: DUREZOL OPL SCH ×2 (08:10→20:36)
--- NOTE | 2021-08-13 11:18 | Pharmacy Report ---
Pharmacy Glycemic Short Note 2 - Date of Service August 13, 2021 - Glycemic Short BSG Results (Last 24 hours): 08/12/21 08/12/21 08/12/21 16:18 16:19 16:55 Glucose POC Glucose 67 L* 61 L* 101 H 08/12/21 08/13/21 08/13/21 20:17 06:45 07:32 Glucose 66 L POC Glucose 190 H 79 OUTPATIENT ANTIDIABETIC REGIMEN: * Novolog 70/30: 100 units QAM, 90 units QPM * A1c 9.3% 08/03/21 ASSESSMENT: 08/13/21: * Pt has been receiving ~100-120 units of insulin per day. * Pt has had some mild hypoglycemia the past couple of evenings. * Carb ratio loosened throughout the day to provide slightly less prandial coverage. * Fasting BSG trending down the past few days, with mild hypoglycemia this morning (66mg/dL). * NPH dose reduced this morning. Will continue to reduce dose if fasting BSG remains below goal. 08/10 * Pt has received 105 units of insulin over the past 24hrs * 60 units of basal with NPH * 10 units of basal with LANTUS * 35 units of bolus with NovoLog * BSGs well controlled with current regimen' no BSG > 180 * Concern for insulin stacking with Lantus + NPH - both serving as basal insulin (not one for steroid hyperglycemia). Will continue with NPH monotherapy. Increase dose to 70 units/day (35 units SQ BID) but dose q12hrs apart (rather than with breakfast & dinner) to provide more 24hr coverage. 08/09 * Labile BSGs yesterday, ranging 63-278 mg/dL * Lantus added last evening and fasting BSG is improved this morning (165 mg/dL) * Will decrease AM NPH in light of hypoglycemia noted at dinnertime ... 08/02 * 75 year old male admitted with CHF, elevated troponin, on heparin drip, type 2 diabetic, uncontrolled, no basal insulin given since admitted last night, pharmacy consulted for glycemic control * Add basal insulin with NPH to match insulins in mixed insulin patient uses at home * Outpatient regimen is premixed basal/prandial insulin of Novolog 70/30 mix insulin. * Pre-mixed insulin is difficult to titrate since it is already in a fixed distribution of basal:prandial insulin. Continuing pre-mixed insulin for admission typically lead to hypoglycemia d/t changing PO status but rapid acting insulin is unable to be held. * Home regimen will be held for admission per pharmacy consult. Will utilize SQ basal bolus insulin regimen with NPH + NovoLog (CF+CR) * Tighten CF/CR * Overnight accuchecks while reaching euglycemia PLAN FOR INPATIENT GLYCEMIC CONTROL: * Hold outpatient pre-mixed insulin * Basal insulin: decrease * NPH 30 units SQ q12h * Bolus insulin: no change * NovoLog per scale ACHS or Q6hrs while NPO * Goal Range: Low 110 mg/dL - High 140 mg/dL * Correction Factor: 12 mg/dL/unit with breakfast, 20 units with lunch, dinner and HS * Nutritional / Prandial insulin per carb ratio of 1 unit per 3 grams CHO consumed at breakfast, and 5 gm of CHO with lunch, dinner and HS. PLAN FOR DISCHARGE: * HbA1C currently is above goal but is improved compared to December of this year. Currently HbA1C = 9.3% with goal of ~8%. * Recommend continuing to check BSGs at least one time per day and titrating insulin with outpatient provider. * Per family living educator note, could consider GLP-1 to help decrease insulin burden.
--- NOTE | 2021-08-13 11:32 | Nephrology Progress Note ---
Date of Service August 13, 2021 Assessment & Plan Admission and Anticipated Discharge Date Admission Date: August 01, 2021 Subjective Subjective Assessment & Plan Admission and Anticipated Discharge Date Admission Date: August 01, 2021 Subjective Assessment & Plan (1) CKD (chronic kidney disease) stage 4, GFR 15-29 ml/min: Plan: baseline creatinine spring/summer 2020 --3.7 So current creat of 3.9 is really within his baseline range overall. I expect some rise in creat in the coming days. But so far very close to baseline Quite possible recent episodes of Defibb firing is affecting renal function and urine output. Subacute heart failure with extensive apical, septal scar and troponin patterns concerning for myocardial ischemia. we have this admission discussed possibility that if heart conditions worsen abruptly and he has cardiac cath his renal function may also worsen to where would need decision about dialysis. He appreciated the discussion; does continue to feel that "going to a center for 4 hrs 3 times a week is bullshit" and not something he'd be inclined to do; not a final decision however; he is willing to cont to discuss. -daily bmp -continue bumex 2 mg bid IV ( uo increased to 3300 ml but yesterday was 2100 ml). Maybe till tomorrow AM and then switch to oral torsemide -cont FR 1.5L -he has historically refused to discuss dialysis but need to cont to discuss in setting of ongoing cardiac and overload issues. But does not look like he will need this admission. -note pt has 08/15 appt in CKD clinic w/me - pls have him keep appt or reschedule w/in 1-2 wks of d/c if he is still in hospital till then Subjective went into Vifbb/V tach and AICD fired few times . Now in tele floor. has SOB and orthopnea but is better with iv lasix. Review of Systems Review of Systems: All systems reviewed & are unremarkable except as noted in Subjective Physical Exam Constitutional: well developed, well nourished, + obese and comfortable (sitting on side of bed on RA); no acute distress Eyes: EOM intact bilaterally ENMT: Ears: no external ear abnormality Nose: no external nose abnormality Mouth: + dry oral mucous membranes Neck: no nuchal rigidity Respiratory: normal respiratory effort (on 02NC) Auscultation: + diminished lung sounds (markedly) Cardiovascular: Rate/Rhythm: regular rate and regular rhythm Heart Sounds: normal S1 and normal S2; no murmur Extremities: + edema (trace pretibial) Gastrointestinal (Abdomen): Inspection/Auscultation: normal bowel sounds Percussion/Palpation: abdomen soft; abdomen nontender Musculoskeletal: Extremities: strength 5/5 throughout and + lower leg abnormality (R BKA) Skin: no rashes, warm and dry Neurologic: gregory, fluent speech, no tremor Psychiatric: Orientation: oriented x 3 and cooperative Results & Data ([facility]) Vital Signs (Past 12 Hours) Vital Signs Temp Pulse Pulse Resp BP Pulse Ox 08/13/21 08:00 36.8 C 66 18 139/72 08/13/21 03:28 36.5 C 62 16 145/76 H 100
--- NOTE | 2021-08-13 12:15 | Cardiology Progress Note ---
Date of Service August 13, 2021 Assessment & Plan (1) Elevated troponin: (2) Pulmonary edema: (3) Nonischemic cardiomyopathy: (4) CKD (chronic kidney disease) stage 4, GFR 15-29 ml/min: Plan: The patient's renal failure and volume overload causing congestive heart failure most likely resulted in his ventricular arrhythmias and defibrillator discharge. Now that he has taken off quite a bit of volume and we started him on amiodarone he has had no additional arrhythmias or therapies from his ICD. I would continue the amiodarone 200 mg 3 times daily through today and then start tomorrow with 200 mg twice daily and eventually 200 mg daily. The nephrology's note is appreciated and I agree with IV diuretics through today. Admission and Anticipated Discharge Date Admission Date: August 01, 2021 Subjective The patient has no new complaints today. He is sitting comfortably in a chair. Review of Systems Review of Systems: Review of Systems: See HPI for pertinent positives. All other 10 point review of systems are negative. Physical Exam Physical Exam: General: no acute distress and stated age Head: normocephalic, no masses, lesions, tenderness or abnormalities Eyes: conjunctiva are pink and non-injected, sclera clear Neck: supple, no adenopathy, no bruits, normal jugular venous pulse, no hepatojugular reflux Chest: normal shape and normal respiratory effort Lungs: clear to auscultation and percussion Cardiac Exam: - regular rate & rhythm, no murmurs gallops or rubs - normal S1, normal S2 Pulses: 2(+) throughout Abdomen: abdomen soft, non-tender, no abnormal masses and no hepatosplenomegaly Musculoskeletal: no gait disturbance, no joint inflammation, no deforming arthritis Extremities: no edema and no cyanosis Neuro: grossly normal exam Results & Data ([facility]) Vital Signs (Past 12 Hours) Vital Signs Temp Pulse Pulse Resp BP Pulse Ox 08/13/21 08:00 36.8 C 66 18 139/72 08/13/21 03:28 36.5 C 62 16 145/76 H 100 Laboratory Results Laboratory Results - last 24 hr 08/12/21 08/12/21 08/12/21 16:18 16:19 16:55 PT INR Sodium Potassium Chloride Carbon Dioxide Anion Gap BUN Creatinine Est Cr Clr Drug Dosing Est GFR ( Amer) Est GFR (Non-Af Amer) BUN/Creatinine Ratio Glucose POC Glucose 67 L* 61 L* 101 H Calcium 08/12/21 08/13/21 08/13/21 20:17 06:45 06:45 PT 25.6 H INR 2.7 H Sodium 137 Potassium 4.2 Chloride 102 Carbon Dioxide 27 Anion Gap 8.0 BUN 79 H Creatinine 3.99 H Est Cr Clr Drug Dosing 21.7 Est GFR ( Amer) 15.9 Est GFR (Non-Af Amer) 13.8 BUN/Creatinine Ratio 19.8 Glucose 66 L POC Glucose 190 H Calcium 9.4 08/13/21 08/13/21 07:32 11:31 PT INR Sodium Potassium Chloride Carbon Dioxide Anion Gap BUN Creatinine Est Cr Clr Drug Dosing Est GFR ( Amer) Est GFR (Non-Af Amer) BUN/Creatinine Ratio Glucose POC Glucose 79 124 H Calcium Medications Administered Current Inpatient Medications Acetaminophen (Acetaminophen 325 Mg Tab) 650 mg PO Q4H PRN PRN Reason: Pain or Fever Stop: 08/31/21 15:12 Last Admin: 08/13/21 05:14 Dose: 650 mg Documented by: Albuterol (Albuterol 0.083% Nebu Soln 3 Ml Vial) 2.5 mg NEB Q6R PRN PRN Reason: Shortness Of Breath Or Wheezing Stop: 09/01/21 12:59 Amiodarone HCl (Amiodarone 200 Mg Tab) 200 mg PO TIDM [facility] Stop: 09/10/21 16:59 Last Admin: 08/13/21 08:07 Dose: 200 mg Documented by: Aspirin (Aspirin 81 Mg Ectab) [facility] [place] Stop: 09/09/21 11:29 Last Admin: 08/13/21 08:06 Dose: 81 mg Documented by: Dextrose (Dextrose 50% 50 Ml Syringe) 25 - 50 ml IV UD PRN; Protocol PRN Reason: Hypoglycemia Protocol Stop: 08/31/21 15:12 Fenofibrate (Fenofibrate Nanocrystallized 48 Mg Tablet) 48 mg PO QAM [facility] Stop: 09/01/21 08:59 Last Admin: 08/13/21 08:06 Dose: 48 mg Documented by: Glucagon (Glucagon For Inj 1 Mg Vial) 1 mg SQ UD PRN; Protocol PRN Reason: Hypoglycemia Protocol Stop: 08/31/21 15:12 Glucose (Glucose 10 Tabs/Tube) 4 - 8 tabs PO UD PRN; Protocol PRN Reason: Hypoglycemia Protocol Stop: 08/31/21 15:12 Glucose (Glucose 40% Gel 15 Gm Tube) 15 - 30 gm PO UD PRN; Protocol PRN Reason: Hypoglycemia Protocol Stop: 08/31/21 15:12 Hydralazine HCl (Hydralazine Tab 50 Mg Tab) 50 mg PO BID [facility] Stop: 08/31/21 20:59 Last Admin: 08/13/21 08:07 Dose: 50 mg Documented by: Bumetanide 2 mg/ Syringe 8 mls @ 4 mls/min IV BID@0900,1700 [facility] Stop: 09/10/21 16:59 Last Admin: 08/13/21 08:07 Dose: 4 mls/min Documented by: Insulin Aspart (Insulin Aspart 100 Units/Ml 3 Ml Pen) 0 units SC DAILY@0730 RISHI; Protocol Stop: 09/07/21 07:29 Last Admin: 08/13/21 08:09 Dose: 15 units Documented by: Insulin Aspart (Insulin Aspart 100 Units/Ml 3 Ml Pen) 0 units SC TID@1130,1630,2100 RISHI; Protocol Stop: 09/06/21 11:29 Last Admin: 08/12/21 20:39 Dose: 10 units Documented by: Insulin Human NPH (Insulin Human Nph) 30 units SC BID@0800,2000 RISHI; Protocol Stop: 09/12/21 07:59 Last Admin: 08/13/21 08:08 Dose: 30 units Documented by: Isosorbide Dinitrate (Isosorbide Dinitrate 20 Mg Tab) 20 mg PO 0700,1200,1700 [facility] Stop: 09/01/21 13:29 Last Admin: 08/13/21 08:06 Dose: 20 mg Documented by: Levothyroxine Sodium (Levothyroxine Sodium 112 Mcg Tablet) 112 mcg PO QAM [facility] Stop: 09/01/21 08:59 Last Admin: 08/13/21 08:06 Dose: 112 mcg Documented by: Metoprolol Succinate (Metoprolol Succ 50mg Ext Rel Tab) 50 mg PO BID [facility] Stop: 09/01/21 20:59 Last Admin: 08/13/21 08:07 Dose: 50 mg Documented by: Miscellaneous (Carbohydrates For Hypoglycemia ) 15 - 30 gm PO UD PRN PRN Reason: Hypoglycemia Protocol Stop: 08/31/21 15:12 Last Admin: 08/08/21 17:23 Dose: 15 gm Documented by: Miscellaneous Information (Pharmacy Glycemic Mgmt Consult) 1 ea N/A UD PRN PRN Reason: Consult Stop: 09/01/21 14:58 *Durezol*Non- Formulary Patient's Own Med 1 ea OPL BID RISHI Stop: 08/16/21 23:59 Last Admin: 08/13/21 08:10 Dose: Not Given Documented by: *Prolensa*Non- Formulary Patient's Own Med 1 ea OPL DAILY [facility] Stop: 08/16/21 23:59 Last Admin: 08/13/21 08:04 Dose: 1 drops Documented by: Ondansetron HCl (Ondansetron Inj 2 Mg/Ml 2 Ml Vial) 4 mg IV Q6H PRN PRN Reason: Nausea Stop: 08/31/21 15:12 Last Admin: 08/10/21 07:46 Dose: 4 mg Documented by: Polyethylene Glycol (Polyethylene (Miralax) 17 Gm Pack) 17 gm PO DAILY PRN PRN Reason: Constipation Stop: 08/31/21 15:12 Last Admin: 08/05/21 12:24 Dose: 17 gm Documented by: Sennosides (Senna 8.6 Mg Tab) 8.6 mg PO QPM [facility] Stop: 09/04/21 20:59 Last Admin: 08/12/21 20:38 Dose: 8.6 mg Documented by: Simvastatin (Simvastatin 20 Mg Tab) 20 mg PO QAM [facility] Stop: 09/11/21 08:59 Last Admin: 08/12/21 08:06 Dose: 20 mg Documented by: Warfarin Sodium (Warfarin Sod 3 Mg Tab) 3 mg PO DAILY@1600 RISHI Stop: 09/09/21 15:59 Last Admin: 08/12/21 17:18 Dose: 3 mg Documented by: Warfarin Sodium (Warfarin Sod 4 Mg Tab) 4 mg PO DAILY@1600 RISHI Stop: 09/09/21 15:59 Last Admin: 08/12/21 17:18 Dose: 4 mg Documented by: (1) Pulmonary edema Chronicity: acute Qualified Code(s): J81.0 - Acute pulmonary edema
--- NOTE | 2021-08-13 16:18 | Hospitalist Progress Note ---
Date of Service August 13, 2021 Assessment & Plan (1) Ventricular arrhythmia: Plan: Per pacemaker interrogation total x6 VF shocks this admission. Episodes started on August 08 but provider not aware until today. Additional 5 episodes NSVT mostly last 2 nights. Transferred to PCU Discussed with Dr Thomas and patient on amiodarone No VF shocks in past 24 hours. (2) CHF (congestive heart failure): Plan: Acute on chronic heart failure- HFrEF with chronic renal failure - patient endorses symptoms worsening over the past 1-2 months - continues to diurese with negative balance on Bumex 1mg IV BID although weight now starting to increase. Despite net negative 1L per day he has not made significant progress with his shortness of breath and hypoxia. Discussed with Dr Reina and will increase to 2mg IV BID (additional 1mg given this morning to total 4mg today). Given lack of progress and patient unwillingness for dialysis. Appreciate palliative care consult: now dnr/dni - BNP increasing although I suspect that is related to cardiac arrhythmias +/- defibrillation - TTE - LVEF 40-45%, focal severe hypokinesis of the mid and apical septus with mild diffuse LV, mild-mod aortic stenosis - strict I&Os, daily weights -Patient is negative 12 liters (3) Nonischemic cardiomyopathy: Plan: Continue metoprolol succinate 50mg PO BID Unable to take ACEi/ARB due to CKD stage IV (4) Hypoxia: Plan: *Acute respiratory failure with hypoxia Now on 3 liters CHF - diurese as above Infectious cause ruled out - Patient feels breathing has improved since coming to ER - Oxygen support for SPO2 >94% - Procalcitonin negative - Repeat CXR 08/08 stable but not improving (5) Elevated troponin: Plan: Likely type II secondary to hypoxia and volume stress - trop peaked at 7.98 - Due to lack of symptoms and CKD, risk of cardiac cath (CKD) outweighs benefit - consulted cardio: no cardiac cath is indicated at the moment due to decreased kidney function - started aspirin as unable to rule out coronary artery disease, although he has known nonischemic cardiomyopathy unable to perform current cardiac cath (6) CKD (chronic kidney disease) stage 4, GFR 15-29 ml/min: Plan: Chronic, suspect recent increase in Cr due to cardiac arrhythmias - follow BMP daily with scotty (7) Biventricular ICD (implantable cardioverter-defibrillator) in place: Plan: BiV- DDDR (afib underlying) Rate 60BMP; Upper tracking 120; Upper AT 170, VF: >200 - Appropriate fire and capture on ECG (8) Atrial fibrillation: Plan: As above - continue metoprolol - restarted warfarin 08/05, now therapeutic but likely to become supratherapeutic as amiodarone started. Check INR daily. (9) Hypertension: Plan: Continue Hydralazine, Metoprolol, ISDN, diuretics as above - adjustment may be needed following evaluation and diuresing (10) Chronic venous insufficiency: Plan: Follows with wound care- well healed ulcerations to left leg- patient is phyllis compression stocking (11) Hypothyroidism: Plan: TSH WNL in Dec Continue levothyroxine 112 mcg PO daily (12) T2DM (type 2 diabetes mellitus): Plan: HbA1C 9.3 Appreciate pharmacy consult for basal bolus insulin control GLP-1 possibility recommended by health promotion educator however in setting of CKD stage IV would advise against this given paucity of evidence in these patients Plan: VTE Prophylaxis - continue warfarin 7mg PO daily but likely to become supratherapeutic and may need reduction with starting on amiodarone, PTINR daily Diet - heart healthy, low sodium, T2DM, fluid restricted 1500ml Disposition - transferred to PCU Admission and Anticipated Discharge Date Admission Date: August 01, 2021 Subjective Patient reports feeling better this afternoon. He is still refusing dialysis. Review of Systems Review of Systems: All systems reviewed & are unremarkable except as noted in HPI & below Physical Exam Physical Exam: General: awake, alert, no apparent distress Head: Normocephalic, atraumatic ENT: PERRL, EOMI, no pharyngeal exudate, mucous membranes moist Neuro: AAO x 3, speech clear and appropriate, strength intact bilaterally 5/5 (excluding right BKA), sensation intact and equal all extremities and dermatomes, no pronator drift Chest: equal rise and fall of the chest, scattered crackles through out with end expiratory wheeze in the bases, on 2 Liters nasal cannula Cardiac: Regular rate and rhythm, telemetry reviewed- 100% V Pace, skin warm dry, cap refill <3 seconds, peripheral pulses +2 no JVD, systollic murmur radiates to carotids, +2 edema to left lower leg up to just below the knee GI: NABS x 4 quadrants, soft, nontender to palpation, no rebound, guarding or tenderness : Spontaneously voiding, no pain, no CVA tenderness, does endorse some difficulty completely emptying bladder Extremities: Normal inspection, no peripheral edema or erythema, calfs nontender to palpation Psych: Normal mood and affect Skin: well healing venous ulcerations to left lower leg Results & Data Results & Data ([facility]) Vital Signs (Past 12 Hours) Vital Signs Temp Pulse Resp BP 08/13/21 15:55 37.0 C 75 20 131/61 08/13/21 12:00 36.8 C 78 18 122/68 08/13/21 08:00 36.8 C 66 18 139/72 PG Care Time/CCT Total # of Minutes Spent Total Time Spent with Patient: Total time spent is greater than 50% in coordination of care (as documented) at patient's floor/unit and/or counseling patient: Coding Level of Care Code 51435 Subseq Hosp Care Lvl 2 Diagnoses Ventricular arrhythmia I49.9 CHF (congestive heart failure) I50.9 Nonischemic cardiomyopathy I42.8 Hypoxia R09.02 Elevated troponin R77.8 CKD (chronic kidney disease) stage 4, GFR 15-29 ml/min N18.4 Biventricular ICD (implantable cardioverter-defibrillator) in place Z95.810 Atrial fibrillation I48.91 Atrial fibrillation type: unspecified Hypertension I10 Hypertension type: essential hypertension Chronic venous insufficiency I87.2 Hypothyroidism E03.9 Hypothyroidism type: acquired T2DM (type 2 diabetes mellitus) E11.9 Time Spent (min) 25 (1) Atrial fibrillation Atrial fibrillation type: unspecified Qualified Code(s): I48.91 - Unspecified atrial fibrillation (2) Hypothyroidism Hypothyroidism type: acquired Qualified Code(s): E03.9 - Hypothyroidism, unspecified (3) Hypertension Hypertension type: essential hypertension Qualified Code(s): I10 - Essential (primary) hypertension
[2021-08-13] MEDS: WARFARIN SOD 3 MG TAB PO SCH (16:36)
[2021-08-13] MEDS: WARFARIN SOD 4 MG TAB PO SCH (16:36)
[2021-08-13] MEDS: SENNA 8.6 MG TAB PO SCH (20:34)
[2021-08-14] MEDS: ACETAMINOPHEN 325 MG TAB PO PRN (03:17)
[2021-08-14 06:17] LABS: INR 2.8 (0.9-1.1); Prothrombin Time 25.8 Seconds (9.0-12.0)
[2021-08-14 06:45] LABS: BUN Creatinine Ratio 18.8 (10-20); Calcium 9.5 mg/dl (8.5-10.1); Creatinine Clr Calc Pharmacy 19.5 ml/min; Est GFR (African American) 13.9 ml/min; Potassium 4.5 mmol/L (3.5-5.1)
[2021-08-14] MEDS ORDERED: INSULIN ASPART 100 UNITS/ML 3 ML PEN SC SCH (07:30)
[2021-08-14] MEDS: INSULIN ASPART 100 UNITS/ML 3 ML PEN SC SCH ×4 (08:32→21:31)
[2021-08-14] MEDS: ISOSORBIDE DINITRATE 20 MG TAB PO SCH ×3 (08:32→17:13)
[2021-08-14] MEDS: AMIODARONE 200 MG TAB PO SCH ×3 (08:32→17:13)
[2021-08-14] MEDS: INSULIN HUMAN NPH SC SCH ×2 (08:37→21:27)
[2021-08-14] MEDS: FENOFIBRATE NANOCRYSTALLIZED 48 MG TABLET PO SCH (08:40)
[2021-08-14] MEDS: ASPIRIN 81 MG ECTAB PO SCH (08:40)
[2021-08-14] MEDS: LEVOTHYROXINE SODIUM 112 MCG TABLET PO SCH (08:40)
[2021-08-14] MEDS: hydrALAZINE TAB 50 MG TAB PO SCH ×2 (08:40→21:28)
[2021-08-14] MEDS: METOPROLOL SUCC 50MG EXT REL TAB PO SCH ×2 (08:41→21:29)
[2021-08-14] MEDS: PROLENSA OPL SCH (08:42)
[2021-08-14] MEDS: DUREZOL OPL SCH ×2 (08:43→21:30)
[2021-08-14] MEDS: BUMETANIDE 2 MG in SYRINGE 0 ML IV SCH (10:32)
--- NOTE | 2021-08-14 10:55 | Pharmacy Report ---
Pharmacy Glycemic Short Note 2 - Date of Service August 14, 2021 - Glycemic Short BSG Results (Last 24 hours): 08/13/21 08/13/21 08/13/21 11:31 16:26 16:27 Glucose POC Glucose 124 H 63 L* 64 L* 08/13/21 08/14/21 08/14/21 20:31 05:50 07:00 Glucose 134 H POC Glucose 219 H 175 H OUTPATIENT ANTIDIABETIC REGIMEN: * Novolog 70/30: 100 units QAM, 90 units QPM * A1c 9.3% 08/03/21 ASSESSMENT: 08/14/21: * Despite reduction in NPH and carb ratio yesterday, pt was still hypoglycemic pre-dinner. * NPH reduced further this morning and Novolog parameters adjusted again. * Will provide tighter coverage at breakfast and dinner, and looser coverage with lunch and at bedtime, to better match patient's BSG patterns throughout the day. * Suspect that NPH may require increase again tomorrow, as fasting BSG above goal this morning. For now, will dose conservatively until hypoglycemic episodes cease. * Will continue to follow and adjust as required. 08/13 * Pt has been receiving ~100-120 units of insulin per day. * Pt has had some mild hypoglycemia the past couple of evenings. * Carb ratio loosened throughout the day to provide slightly less prandial coverage. * Fasting BSG trending down the past few days, with mild hypoglycemia this morning (66mg/dL). * NPH dose reduced this morning. Will continue to reduce dose if fasting BSG remains below goal. 08/10 * Pt has received 105 units of insulin over the past 24hrs * 60 units of basal with NPH * 10 units of basal with LANTUS * 35 units of bolus with NovoLog * BSGs well controlled with current regimen' no BSG > 180 * Concern for insulin stacking with Lantus + NPH - both serving as basal insulin (not one for steroid hyperglycemia). Will continue with NPH monotherapy. Increase dose to 70 units/day (35 units SQ BID) but dose q12hrs apart (rather than with breakfast & dinner) to provide more 24hr coverage. 08/09 * Labile BSGs yesterday, ranging 63-278 mg/dL * Lantus added last evening and fasting BSG is improved this morning (165 mg/dL) * Will decrease AM NPH in light of hypoglycemia noted at dinnertime ... 08/02 * 75 year old male admitted with CHF, elevated troponin, on heparin drip, type 2 diabetic, uncontrolled, no basal insulin given since admitted last night, pharmacy consulted for glycemic control * Add basal insulin with NPH to match insulins in mixed insulin patient uses at home * Outpatient regimen is premixed basal/prandial insulin of Novolog 70/30 mix insulin. * Pre-mixed insulin is difficult to titrate since it is already in a fixed distribution of basal:prandial insulin. Continuing pre-mixed insulin for admission typically lead to hypoglycemia d/t changing PO status but rapid acting insulin is unable to be held. * Home regimen will be held for admission per pharmacy consult. Will utilize SQ basal bolus insulin regimen with NPH + NovoLog (CF+CR) * Tighten CF/CR * Overnight accuchecks while reaching euglycemia PLAN FOR INPATIENT GLYCEMIC CONTROL: * Hold outpatient pre-mixed insulin * Basal insulin: decrease * NPH 20 units SQ q12h * Bolus insulin: no change * NovoLog per scale ACHS or Q6hrs while NPO * Goal Range: Low 110 mg/dL - High 140 mg/dL * Correction Factor: 12 mg/dL/unit with breakfast and dinner, 20 mg/dL/unit with lunch and HS * Nutritional / Prandial insulin per carb ratio of 1 unit/3 gm CHO consumed at breakfast and dinner, and 1 unit/6 gm of CHO with lunch and HS PLAN FOR DISCHARGE: * HbA1C currently is above goal but is improved compared to December of this year. Currently HbA1C = 9.3% with goal of ~8%. * Recommend continuing to check BSGs at least one time per day and titrating insulin with outpatient provider. * Per graphics artist note, could consider GLP-1 to help decrease insulin burden.
--- NOTE | 2021-08-14 10:57 | Cardiology Progress Note ---
Date of Service August 14, 2021 Assessment & Plan (1) Elevated troponin: (2) Pulmonary edema: (3) Nonischemic cardiomyopathy: (4) CKD (chronic kidney disease) stage 4, GFR 15-29 ml/min: Plan: Reviewing the patient's telemetry he had 1 brief episode of 3-4 beat run of atrial fibrillation and this morning episode of V. tach that after about 7 or 8 beats was terminated by what appears to be antitacky pacing. No sustained arrhythmias. No therapies delivered by his device. We will continue the amiodarone 200 mg 3 times daily. The patient continues to diuresis and the diuretics are being managed by nephrology. Admission and Anticipated Discharge Date Admission Date: August 01, 2021 Subjective Patient is comfortably sitting in a chair. No new cardiac complaints today. Review of Systems Review of Systems: Review of Systems: See HPI for pertinent positives. All other 10 point review of systems are negative. Physical Exam Physical Exam: General: no acute distress and stated age Head: normocephalic, no masses, lesions, tenderness or abnormalities Eyes: conjunctiva are pink and non-injected, sclera clear Neck: supple, no adenopathy, no bruits, normal jugular venous pulse, no hepatojugular reflux Chest: normal shape and normal respiratory effort Lungs: clear to auscultation and percussion Cardiac Exam: - regular rate & rhythm, no murmurs gallops or rubs - normal S1, normal S2 Pulses: 2(+) throughout Abdomen: abdomen soft, non-tender, no abnormal masses and no hepatosplenomegaly Musculoskeletal: no gait disturbance, no joint inflammation, no deforming arthritis Extremities: no edema and no cyanosis Neuro: grossly normal exam Results & Data ([facility]) Vital Signs (Past 12 Hours) Vital Signs Temp Pulse Pulse Pulse Resp BP Pulse Ox 08/14/21 06:55 36.5 C 62 17 128/70 98 08/14/21 03:15 36.5 C 65 20 148/76 H 96 08/13/21 23:23 67 08/13/21 23:00 36.8 C 68 18 132/69 98 Laboratory Results Laboratory Results - last 24 hr 08/13/21 08/13/21 08/13/21 11:31 16:26 16:27 PT INR Sodium Potassium Chloride Carbon Dioxide Anion Gap BUN Creatinine Est Cr Clr Drug Dosing Est GFR ( Amer) Est GFR (Non-Af Amer) BUN/Creatinine Ratio Glucose POC Glucose 124 H 63 L* 64 L* Calcium 08/13/21 08/14/21 08/14/21 20:31 05:50 05:50 PT 25.8 H INR 2.8 H Sodium 134 L Potassium 4.5 Chloride 101 Carbon Dioxide 27 Anion Gap 6.0 BUN 84 H Creatinine 4.47 H D Est Cr Clr Drug Dosing 19.5 Est GFR ( Amer) 13.9 Est GFR (Non-Af Amer) 12.0 BUN/Creatinine Ratio 18.8 Glucose 134 H POC Glucose 219 H Calcium 9.5 08/14/21 07:00 PT INR Sodium Potassium Chloride Carbon Dioxide Anion Gap BUN Creatinine Est Cr Clr Drug Dosing Est GFR ( Amer) Est GFR (Non-Af Amer) BUN/Creatinine Ratio Glucose POC Glucose 175 H Calcium Medications Administered Current Inpatient Medications Acetaminophen (Acetaminophen 325 Mg Tab) 650 mg PO Q4H PRN PRN Reason: Pain or Fever Stop: 08/31/21 15:12 Last Admin: 08/14/21 03:17 Dose: 650 mg Documented by: Albuterol (Albuterol 0.083% Nebu Soln 3 Ml Vial) 2.5 mg NEB Q6R PRN PRN Reason: Shortness Of Breath Or Wheezing Stop: 09/01/21 12:59 Amiodarone HCl (Amiodarone 200 Mg Tab) 200 mg PO TIDM [facility] Stop: 09/10/21 16:59 Last Admin: 08/14/21 08:32 Dose: 200 mg Documented by: Aspirin ([facility]spirin 81 Mg Ectab) [facility] Stop: 09/09/21 11:29 Last Admin: 08/14/21 08:40 Dose: 81 mg Documented by: Atorvastatin Calcium (Atorvastatin 10 Mg Tab) [facility] Stop: 09/14/21 08:59 Dextrose (Dextrose 50% 50 Ml Syringe) 25 - 50 ml IV UD PRN; Protocol PRN Reason: Hypoglycemia Protocol Stop: 08/31/21 15:12 Fenofibrate (Fenofibrate Nanocrystallized 48 Mg Tablet) [facility] Stop: 09/01/21 08:59 Last Admin: 08/14/21 08:40 Dose: 48 mg Documented by: Glucagon (Glucagon For Inj 1 Mg Vial) 1 mg SQ UD PRN; Protocol PRN Reason: Hypoglycemia Protocol Stop: 08/31/21 15:12 Glucose (Glucose 10 Tabs/Tube) 4 - 8 tabs PO UD PRN; Protocol PRN Reason: Hypoglycemia Protocol Stop: 08/31/21 15:12 Glucose (Glucose 40% Gel 15 Gm Tube) 15 - 30 gm PO UD PRN; Protocol PRN Reason: Hypoglycemia Protocol Stop: 08/31/21 15:12 Hydralazine HCl (Hydralazine Tab 50 Mg Tab) 50 mg PO BID [facility] Stop: 08/31/21 20:59 Last Admin: 08/14/21 08:40 Dose: 50 mg Documented by: Bumetanide 2 mg/ Syringe 8 mls @ 4 mls/min IV BID@0900,1700 [facility] Stop: 09/10/21 16:59 Last Admin: 08/14/21 10:32 Dose: 4 mls/min Documented by: Insulin Aspart (Insulin Aspart 100 Units/Ml 3 Ml Pen) 0 units SC DAILY@0730,1630 RISHI; Protocol Stop: 09/13/21 07:29 Last Admin: 08/14/21 08:32 Dose: 21 units Documented by: Insulin Aspart (Insulin Aspart 100 Units/Ml 3 Ml Pen) 0 units SC DAILY@1130,2100 RISHI; Protocol Stop: 09/13/21 11:29 Insulin Human NPH (Insulin Human Nph) 20 units SC BID@0800,2000 RISHI; Protocol Stop: 09/13/21 07:59 Last Admin: 08/14/21 08:37 Dose: 20 units Documented by: Isosorbide Dinitrate (Isosorbide Dinitrate 20 Mg Tab) 20 mg PO 0700,1200,1700 [facility] Stop: 09/01/21 13:29 Last Admin: 08/14/21 08:32 Dose: 20 mg Documented by: Levothyroxine Sodium (Levothyroxine Sodium 112 Mcg Tablet) 112 mcg PO QAM [facility] Stop: 09/01/21 08:59 Last Admin: 08/14/21 08:40 Dose: 112 mcg Documented by: Metoprolol Succinate (Metoprolol Succ 50mg Ext Rel Tab) 50 mg PO BID [facility] Stop: 09/01/21 20:59 Last Admin: 08/14/21 08:41 Dose: 50 mg Documented by: Miscellaneous (Carbohydrates For Hypoglycemia ) 15 - 30 gm PO UD PRN PRN Reason: Hypoglycemia Protocol Stop: 08/31/21 15:12 Last Admin: 08/08/21 17:23 Dose: 15 gm Documented by: Miscellaneous Information (Pharmacy Glycemic Mgmt Consult) 1 ea N/A UD PRN PRN Reason: Consult Stop: 09/01/21 14:58 *Durezol*Non- Formulary Patient's Own Med 1 ea OPL BID RISHI Stop: 08/16/21 23:59 Last Admin: 08/14/21 08:43 Dose: 1 drops Documented by: *Prolensa*Non- Formulary Patient's Own Med 1 ea OPL DAILY RISHI Stop: 08/16/21 23:59 Last Admin: 08/14/21 08:42 Dose: 1 drops Documented by: Ondansetron HCl (Ondansetron Inj 2 Mg/Ml 2 Ml Vial) 4 mg IV Q6H PRN PRN Reason: Nausea Stop: 08/31/21 15:12 Last Admin: 08/10/21 07:46 Dose: 4 mg Documented by: Polyethylene Glycol (Polyethylene (Miralax) 17 Gm Pack) 17 gm PO DAILY PRN PRN Reason: Constipation Stop: 08/31/21 15:12 Last Admin: 08/05/21 12:24 Dose: 17 gm Documented by: Sennosides (Senna 8.6 Mg Tab) 8.6 mg PO QPM RISHI Stop: 09/04/21 20:59 Last Admin: 08/13/21 20:34 Dose: 8.6 mg Documented by: Warfarin Sodium (Warfarin Sod 3 Mg Tab) 3 mg PO DAILY@1600 RISHI Stop: 09/09/21 15:59 Last Admin: 08/13/21 16:36 Dose: 3 mg Documented by: Warfarin Sodium (Warfarin Sod 4 Mg Tab) 4 mg PO DAILY@1600 [facility] Stop: 09/09/21 15:59 Last Admin: 08/13/21 16:36 Dose: 4 mg Documented by: (1) Pulmonary edema Chronicity: acute Qualified Code(s): J81.0 - Acute pulmonary edema
--- NOTE | 2021-08-14 11:16 | Nephrology Progress Note ---
Date of Service August 14, 2021 Assessment & Plan Admission and Anticipated Discharge Date Admission Date: August 01, 2021 Subjective Subjective Assessment & Plan (1) CKD (chronic kidney disease) stage 4, GFR 15-29 ml/min: Plan: baseline creatinine spring/summer 2020 --3.7 . Slight rise to 4.4 today so we can now stop iv bumex and change to oral demadex. Quite possible recent episodes of Defibb firing is affecting renal function and urine output. Subacute heart failure with extensive apical, septal scar and troponin patterns concerning for myocardial ischemia. we have this admission discussed possibility that if heart conditions worsen abruptly and he has cardiac cath his renal function may also worsen to where would need decision about dialysis. -daily bmp -Atop bumex IV switch to oral torsemide 40 bid. -cont FR 1.5L -he has historically refused to discuss dialysis but need to cont to discuss in setting of ongoing cardiac and overload issues. But does not look like he will need this admission. -appt reschedule w/in 1-2 wks of d/c Subjective went into Vifbb/V tach brief run . Now in tele floor. has SOB and orthopnea but is better Review of Systems Review of Systems: All systems reviewed & are unremarkable except as noted in Subjective Physical Exam Constitutional: well developed, well nourished, + obese and comfortable (sitting on side of bed on RA); no acute distress Eyes: EOM intact bilaterally ENMT: Ears: no external ear abnormality Nose: no external nose abnormality Mouth: + dry oral mucous membranes Neck: no nuchal rigidity Respiratory: normal respiratory effort (on 02NC) Auscultation: + diminished lung sounds (markedly) Cardiovascular: Rate/Rhythm: regular rate and regular rhythm Heart Sounds: normal S1 and normal S2; no murmur Extremities: + edema (trace pretibial) Gastrointestinal (Abdomen): Inspection/Auscultation: normal bowel sounds Percussion/Palpation: abdomen soft; abdomen nontender Musculoskeletal: Extremities: strength 5/5 throughout and + lower leg abnormality (R BKA) Skin: no rashes, warm and dry Neurologic: gregory, fluent speech, no tremor Psychiatric: Orientation: oriented x 3 and cooperative Results & Data ([facility]) Vital Signs (Past 12 Hours) Vital Signs Temp Pulse Pulse Pulse Resp BP Pulse Ox 08/14/21 06:55 36.5 C 62 17 128/70 98 08/14/21 03:15 36.5 C 65 20 148/76 H 96 08/13/21 23:23 67
[2021-08-14] MEDS: WARFARIN SOD 4 MG TAB PO SCH (17:11)
[2021-08-14] MEDS: WARFARIN SOD 3 MG TAB PO SCH (17:12)
--- NOTE | 2021-08-14 21:06 | Hospitalist Progress Note ---
Date of Service August 14, 2021 Assessment & Plan (1) Ventricular arrhythmia: Plan: Per pacemaker interrogation total x6 VF shocks this admission. Episodes started on August 08 but provider not aware until today. Additional 5 episodes NSVT mostly last 2 nights. Transferred to PCU Discussed with Dr Thomas and patient on amiodarone Patient had a shock today (2) CHF (congestive heart failure): Plan: Acute on chronic heart failure- HFrEF with chronic renal failure - patient endorses symptoms worsening over the past 1-2 months - continues to diurese with negative balance: will switch bumex to torsemide PO.. Appreciate palliative care consult: now dnr/dni - BNP increasing although I suspect that is related to cardiac arrhythmias +/- defibrillation - TTE - LVEF 40-45%, focal severe hypokinesis of the mid and apical septus with mild diffuse LV, mild-mod aortic stenosis - strict I&Os, daily weights -Patient is negative 13 liters (3) Nonischemic cardiomyopathy: Plan: Continue metoprolol succinate 50mg PO BID Unable to take ACEi/ARB due to CKD stage IV (4) Hypoxia: Plan: *Acute respiratory failure with hypoxia Now on 3 liters CHF - diurese as above Infectious cause ruled out - Patient feels breathing has improved since coming to ER - Oxygen support for SPO2 >94% - Procalcitonin negative - Repeat CXR 08/08 stable but not improving (5) Elevated troponin: Plan: Likely type II secondary to hypoxia and volume stress - trop peaked at 7.98 - Due to lack of symptoms and CKD, risk of cardiac cath (CKD) outweighs benefit - consulted cardio: no cardiac cath is indicated at the moment due to decreased kidney function - started aspirin as unable to rule out coronary artery disease, although he has known nonischemic cardiomyopathy unable to perform current cardiac cath (6) CKD (chronic kidney disease) stage 4, GFR 15-29 ml/min: Plan: Chronic, suspect recent increase in Cr due to cardiac arrhythmias - follow BMP daily with scotty (7) Biventricular ICD (implantable cardioverter-defibrillator) in place: Plan: BiV- DDDR (afib underlying) Rate 60BMP; Upper tracking 120; Upper AT 170, VF: >200 - Appropriate fire and capture on ECG (8) Atrial fibrillation: Plan: As above - continue metoprolol - restarted warfarin 08/05, now therapeutic but likely to become supratherapeutic as amiodarone started. Check INR daily. (9) Hypertension: Plan: Continue Hydralazine, Metoprolol, ISDN, diuretics as above - adjustment may be needed following evaluation and diuresing (10) Chronic venous insufficiency: Plan: Follows with wound care- well healed ulcerations to left leg- patient is phyllis compression stocking (11) Hypothyroidism: Plan: TSH WNL in Dec Continue levothyroxine 112 mcg PO daily (12) T2DM (type 2 diabetes mellitus): Plan: HbA1C 9.3 Appreciate pharmacy consult for basal bolus insulin control GLP-1 possibility recommended by adult educator however in setting of CKD stage IV would advise against this given paucity of evidence in these patients Plan: VTE Prophylaxis - continue warfarin 7mg PO daily but likely to become supratherapeutic and may need reduction with starting on amiodarone, PTINR daily Diet - heart healthy, low sodium, T2DM, fluid restricted 1500ml Disposition - transferred to PCU Admission and Anticipated Discharge Date Admission Date: August 01, 2021 Subjective Patient reports feeling well. He has no new complaints. Review of Systems Review of Systems: All systems reviewed & are unremarkable except as noted in HPI & below Physical Exam Physical Exam: General: awake, alert, no apparent distress Head: Normocephalic, atraumatic ENT: PERRL, EOMI, no pharyngeal exudate, mucous membranes moist Neuro: AAO x 3, speech clear and appropriate, strength intact bilaterally 5/5 (excluding right BKA), sensation intact and equal all extremities and dermatomes, no pronator drift Chest: equal rise and fall of the chest, scattered crackles through out with end expiratory wheeze in the bases, on 2 Liters nasal cannula Cardiac: Regular rate and rhythm, telemetry reviewed- 100% V Pace, skin warm dry, cap refill <3 seconds, peripheral pulses +2 no JVD, systollic murmur radiates to carotids, +2 edema to left lower leg up to just below the knee GI: NABS x 4 quadrants, soft, nontender to palpation, no rebound, guarding or tenderness : Spontaneously voiding, no pain, no CVA tenderness, does endorse some diffic ulty completely emptying bladder Extremities: Normal inspection, no peripheral edema or erythema, calfs nontender to palpation Psych: Normal mood and affect Skin: well healing venous ulcerations to left lower leg Results & Data Results & Data ([facility]) Vital Signs (Past 12 Hours) Vital Signs Temp Pulse Pulse Pulse Resp BP BP 08/14/21 19:18 36.8 C 64 20 144/71 H 08/14/21 15:15 70 08/14/21 14:57 36.5 C 65 18 121/68 08/14/21 11:25 36.4 C L 63 17 136/71 Pulse Ox 08/14/21 19:18 96 08/14/21 15:15 08/14/21 14:57 95 08/14/21 11:25 94 PG Care Time/CCT Total # of Minutes Spent Total Time Spent with Patient: Total time spent is greater than 50% in coordination of care (as documented) at patient's floor/unit and/or counseling patient: Coding Level of Care Code 81157 Subseq Hosp Care Lvl 2 Diagnoses Ventricular arrhythmia I49.9 CHF (congestive heart failure) I50.9 Nonischemic cardiomyopathy I42.8 Hypoxia R09.02 Elevated troponin R77.8 CKD (chronic kidney disease) stage 4, GFR 15-29 ml/min N18.4 Biventricular ICD (implantable cardioverter-defibrillator) in place Z95.810 Atrial fibrillation I48.91 Atrial fibrillation type: unspecified Hypertension I10 Hypertension type: essential hypertension Chronic venous insufficiency I87.2 Hypothyroidism E03.9 Hypothyroidism type: acquired T2DM (type 2 diabetes mellitus) E11.9 Time Spent (min) 25 (1) Atrial fibrillation Atrial fibrillation type: unspecified Qualified Code(s): I48.91 - Unspecified atrial fibrillation (2) Hypothyroidism Hypothyroidism type: acquired Qualified Code(s): E03.9 - Hypothyroidism, unspecified (3) Hypertension Hypertension type: essential hypertension Qualified Code(s): I10 - Essential (primary) hypertension
[2021-08-14] MEDS: TORSEMIDE 10 MG TAB PO SCH (21:28)
[2021-08-14] MEDS: SENNA 8.6 MG TAB PO SCH ×2 (21:29→21:36)
[2021-08-15 06:28] LABS: INR 2.3 (0.9-1.1); Prothrombin Time 22.2 Seconds (9.0-12.0)
[2021-08-15] MEDS ORDERED: INSULIN HUMAN NPH SC SCH (08:00)
[2021-08-15] MEDS: INSULIN ASPART 100 UNITS/ML 3 ML PEN SC SCH ×3 (08:11→17:14)
[2021-08-15] MEDS: FENOFIBRATE NANOCRYSTALLIZED 48 MG TABLET PO SCH (08:15)
[2021-08-15] MEDS: METOPROLOL SUCC 50MG EXT REL TAB PO SCH (08:15)
[2021-08-15] MEDS: TORSEMIDE 10 MG TAB PO SCH (08:16)
[2021-08-15] MEDS: ASPIRIN 81 MG ECTAB PO SCH (08:16)
[2021-08-15] MEDS: hydrALAZINE TAB 50 MG TAB PO SCH (08:16)
[2021-08-15] MEDS: ISOSORBIDE DINITRATE 20 MG TAB PO SCH ×3 (08:16→17:17)
[2021-08-15] MEDS: LEVOTHYROXINE SODIUM 112 MCG TABLET PO SCH (08:17)
[2021-08-15] MEDS: AMIODARONE 200 MG TAB PO SCH ×3 (08:17→17:17)
[2021-08-15] MEDS: DUREZOL OPL SCH (08:17)
[2021-08-15] MEDS: PROLENSA OPL SCH (08:18)
[2021-08-15] MEDS ORDERED: ATORVASTATIN 10 MG TAB PO SCH (09:00)
--- NOTE | 2021-08-15 09:56 | Nephrology Progress Note ---
Date of Service August 15, 2021 Assessment & Plan Admission and Anticipated Discharge Date Admission Date: August 01, 2021 Subjective Assessment & Plan Admission and Anticipated Discharge Date Admission Date: August 01, 2021 Subjective Subjective Assessment & Plan (1) CKD (chronic kidney disease) stage 4, GFR 15-29 ml/min: Plan: baseline creatinine spring/summer 2020 --3.7 . rise to 4.7 yesterday. No labs today so far. Quite possible recent episodes of Defibb firing is affecting renal function and urine output. Subacute heart failure with extensive apical, septal scar and troponin patterns concerning for myocardial ischemia. we have this admission discussed possibility that if heart conditions worsen abruptly and he has cardiac cath his renal function may also worsen to where would need decision about dialysis. - oral torsemide 40 bid. But final discharge dose to be decided after lab results today. Please call/text me. -cont FR 1.5L -But does not look like he will need this admission but he is very close to needing it within next few months -appt reschedule w/in 1-2 wks of d/c Subjective went into Vifbb/V tach brief run . Now in tele floor. has SOB and orthopnea and does not like sleeping in bed. Did not seem too excited to go home Review of Systems Review of Systems: All systems reviewed & are unremarkable except as noted in Subjective Physical Exam Constitutional: well developed, well nourished, + obese and comfortable (sitting on side of bed on RA); no acute distress Eyes: EOM intact bilaterally ENMT: Ears: no external ear abnormality Nose: no external nose abnormality Mouth: + dry oral mucous membranes Neck: no nuchal rigidity Respiratory: normal respiratory effort (on 02NC) Auscultation: + diminished lung sounds (markedly) Cardiovascular: Rate/Rhythm: regular rate and regular rhythm Heart Sounds: normal S1 and normal S2; no murmur Extremities: + edema (trace pretibial) Gastrointestinal (Abdomen): Inspection/Auscultation: normal bowel sounds Percussion/Palpation: abdomen soft; abdomen nontender Musculoskeletal: Extremities: strength 5/5 throughout and + lower leg abnormality (R BKA) Skin: no rashes, warm and dry Neurologic: gregory, fluent speech, no tremor Psychiatric: Orientation: oriented x 3 and cooperative Results & Data ([facility]) Vital Signs (Past 12 Hours) Vital Signs Temp Pulse Resp BP BP Pulse Ox 09/23/21 07:33 36.7 C 61 18 132/71 99 08/15/21 03:27 36.4 C L 59 L 20 127/56 L 98 08/14/21 23:11 36.6 C 65 20 137/70 165/90 H 97
[2021-08-15 10:16] LABS: Basophils # (auto) 0.04 K/uL (0-0.2); Basophils % (auto) 0.5 %; Eosinophils % (auto) 4.6 %; Hematocrit (blood only) 29.8 % (42-52); Hemoglobin 9.5 g/dL (14.0-18.0); Immature Granulocytes # (auto) 0.05 K/uL (0.00-0.02); Immature Granulocytes % (auto) 0.6 %; Lymphocytes # (auto) 1.12 K/uL (1.2-3.4); Lymphocytes % (auto) 12.8 %; Mean Corpuscular Hemoglobin 29.1 pg (25-34); Mean Corpuscular Hgb Conc 31.9 g/dL (32-36); Mean Corpuscular Volume 91.4 fL (80-100); Mean Platelet Volume 10.3 fL (7.4-10.4); Monocytes # (auto) 0.98 K/uL (0.11-0.59); Monocytes % (auto) 11.2 %; Neutrophils # (auto) 6.13 K/uL (1.4-6.5); Neutrophils % (auto) 70.3 %; Platelet Count 362 K/uL (130-400); RDW Coefficient of Variation 15.6 % (11.5-14.5); Red Blood Count 3.26 M/uL (4.7-6.1); White Blood Count 8.72 K/uL (4.8-10.8)
[2021-08-15 10:47] LABS: BUN Creatinine Ratio 19.2 (10-20); Calcium 9.3 mg/dl (8.5-10.1); Creatinine Clr Calc Pharmacy 18.8 ml/min; Est GFR (African American) 13.3 ml/min; Est GFR (Non-African American) 11.5 ml/min; Potassium 4.5 mmol/L (3.5-5.1)
--- NOTE | 2021-08-15 10:52 | Cardiology Progress Note ---
Date of Service August 15, 2021 Assessment & Plan (1) Elevated troponin: (2) Pulmonary edema: (3) Nonischemic cardiomyopathy: (4) CKD (chronic kidney disease) stage 4, GFR 15-29 ml/min: Plan: Patient from a cardiac standpoint is ready to be discharged. He should be discharged home on amiodarone 200 mg twice daily. I have arranged follow-up through our heart failure clinic next week. Admission and Anticipated Discharge Date Admission Date: August 01, 2021 Subjective Patient had an uneventful night. He has no new cardiac complaints today and is actually looking forward to going home. Review of Systems Review of Systems: Review of Systems: See HPI for pertinent positives. All other 10 point review of systems are negative. Physical Exam Physical Exam: General: no acute distress and stated age Head: normocephalic, no masses, lesions, tenderness or abnormalities Eyes: conjunctiva are pink and non-injected, sclera clear Neck: supple, no adenopathy, no bruits, normal jugular venous pulse, no hepatojugular reflux Chest: normal shape and normal respiratory effort Lungs: clear to auscultation and percussion Cardiac Exam: - regular rate & rhythm, no murmurs gallops or rubs - normal S1, normal S2 Pulses: 2(+) throughout Abdomen: abdomen soft, non-tender, no abnormal masses and no hepatosplenomegaly Musculoskeletal: no gait disturbance, no joint inflammation, no deforming arthritis Extremities: no edema and no cyanosis Neuro: grossly normal exam Results & Data ([facility]) Vital Signs (Past 12 Hours) Vital Signs Temp Pulse Pulse Resp BP BP Pulse Ox 08/15/21 08:00 60 08/15/21 07:33 36.7 C 61 18 132/71 99 08/15/21 03:27 36.4 C L 59 L 20 127/56 L 98 08/14/21 23:11 36.6 C 65 20 137/70 165/90 H 97 Laboratory Results Laboratory Results - last 24 hr 08/14/21 08/14/21 08/14/21 11:14 16:00 20:13 WBC RBC Hgb Hct MCV MCH MCHC RDW Std Deviation RDW Coeff of Nicolasa Plt Count MPV Immature Gran % (Auto) Neut % (Auto) Lymph % (Auto) [place] % (Auto) Eos % (Auto) Baso % (Auto) Neut # (Auto) Lymph # (Auto) [place] # (Auto) Eos # (Auto) Baso # (Auto) Immature Gran # (Auto) PT INR Sodium Potassium Chloride Carbon Dioxide Anion Gap BUN Creatinine Est Cr Clr Drug Dosing Est GFR ( Amer) Est GFR (Non-Af Amer) BUN/Creatinine Ratio Glucose POC Glucose 221 H 91 139 H Calcium 08/15/21 08/15/21 08/15/21 01:53 05:49 05:53 WBC RBC Hgb Hct MCV MCH MCHC RDW Std Deviation RDW Coeff of Nicolasa Plt Count MPV Immature Gran % (Auto) Neut % (Auto) Lymph % (Auto) [place] % (Auto) Eos % (Auto) Baso % (Auto) Neut # (Auto) Lymph # (Auto) [place] # (Auto) Eos # (Auto) Baso # (Auto) Immature Gran # (Auto) PT 22.2 H INR 2.3 H Sodium 136 Potassium 4.5 Chloride 101 Carbon Dioxide 28 Anion Gap 7.0 BUN 89 H Creatinine 4.63 H* Est Cr Clr Drug Dosing 18.8 Est GFR ( Amer) 13.3 Est GFR (Non-Af Amer) 11.5 BUN/Creatinine Ratio 19.2 Glucose 142 H POC Glucose 186 H Calcium 9.3 08/15/21 08/15/21 05:53 07:12 WBC 8.72 RBC 3.26 L Hgb 9.5 L Hct 29.8 L MCV 91.4 MCH 29.1 MCHC 31.9 L RDW Std Deviation 52.0 H RDW Coeff of Nicolasa 15.6 H Plt Count 362 MPV 10.3 Immature Gran % (Auto) 0.6 Neut % (Auto) 70.3 Lymph % (Auto) 12.8 [place] % (Auto) 11.2 Eos % (Auto) 4.6 Baso % (Auto) 0.5 Neut # (Auto) 6.13 Lymph # (Auto) 1.12 L [place] # (Auto) 0.98 H Eos # (Auto) 0.40 Baso # (Auto) 0.04 Immature Gran # (Auto) 0.05 H PT INR Sodium Potassium Chloride Carbon Dioxide Anion Gap BUN Creatinine Est Cr Clr Drug Dosing Est GFR ( Amer) Est GFR (Non-Af Amer) BUN/Creatinine Ratio Glucose POC Glucose 145 H Calcium Medications Administered Current Inpatient Medications Acetaminophen (Acetaminophen 325 Mg Tab) 650 mg PO Q4H PRN PRN Reason: Pain or Fever Stop: 08/31/21 15:12 Last Admin: 08/14/21 03:17 Dose: 650 mg Documented by: Albuterol (Albuterol 0.083% Nebu Soln 3 Ml Vial) 2.5 mg NEB Q6R PRN PRN Reason: Shortness Of Breath Or Wheezing Stop: 09/01/21 12:59 Amiodarone HCl (Amiodarone 200 Mg Tab) 200 mg PO TIDM [facility] Stop: 09/10/21 16:59 Last Admin: 08/15/21 08:17 Dose: 200 mg Documented by: Aspirin (Aspirin 81 Mg Ectab) [facility] [place]: 09/09/21 11:29 Last Admin: 08/15/21 08:16 Dose: 81 mg Documented by: Atorvastatin Calcium (Atorvastatin 10 Mg Tab) 10 mg PO QAM [facility] Stop: 09/14/21 08:59 Last Admin: 08/15/21 08:15 Dose: 10 mg Documented by: Dextrose (Dextrose 50% 50 Ml Syringe) 25 - 50 ml IV UD PRN; Protocol PRN Reason: Hypoglycemia Protocol Stop: 08/31/21 15:12 Fenofibrate (Fenofibrate Nanocrystallized 48 Mg Tablet) [facility] [place]: 09/01/21 08:59 Last Admin: 08/15/21 08:15 Dose: 48 mg Documented by: Glucagon (Glucagon For Inj 1 Mg Vial) 1 mg SQ UD PRN; Protocol PRN Reason: Hypoglycemia Protocol Stop: 08/31/21 15:12 Glucose (Glucose 10 Tabs/Tube) 4 - 8 tabs PO UD PRN; Protocol PRN Reason: Hypoglycemia Protocol Stop: 08/31/21 15:12 Glucose (Glucose 40% Gel 15 Gm Tube) 15 - 30 gm PO UD PRN; Protocol PRN Reason: Hypoglycemia Protocol Stop: 08/31/21 15:12 Hydralazine HCl (Hydralazine Tab 50 Mg Tab) 50 mg PO BID [facility] Stop: 08/31/21 20:59 Last Admin: 08/15/21 08:16 Dose: 50 mg Documented by: Insulin Aspart (Insulin Aspart 100 Units/Ml 3 Ml Pen) 0 units SC DAILY@0730,1630 [facility]; Protocol Stop: 09/13/21 07:29 Last Admin: 08/15/21 08:11 Dose: 19 units Documented by: Insulin Aspart (Insulin Aspart 100 Units/Ml 3 Ml Pen) 0 units SC DAILY@1130,2100 [facility]; Protocol Stop: 09/13/21 11:29 Last Admin: 08/14/21 21:31 Dose: 4 units Documented by: Insulin Human NPH (Insulin Human Nph) 22 units SC BID@0800,2000 [facility]; Protocol Stop: 09/13/21 07:59 Last Admin: 08/15/21 08:12 Dose: 22 units Documented by: Isosorbide Dinitrate (Isosorbide Dinitrate 20 Mg Tab) 20 mg PO 0700,1200,1700 [facility] Stop: 09/01/21 13:29 Last Admin: 08/15/21 08:16 Dose: 20 mg Documented by: Levothyroxine Sodium (Levothyroxine Sodium 112 Mcg Tablet) 112 mcg PO QAM [facility] Stop: 09/01/21 08:59 Last Admin: 08/15/21 08:17 Dose: 112 mcg Documented by: Metoprolol Succinate (Metoprolol Succ 50mg Ext Rel Tab) 50 mg PO BID [facility] Stop: 09/01/21 20:59 Last Admin: 08/15/21 08:15 Dose: 50 mg Documented by: Miscellaneous (Carbohydrates For Hypoglycemia ) 15 - 30 gm PO UD PRN PRN Reason: Hypoglycemia Protocol Stop: 08/31/21 15:12 Last Admin: 08/08/21 17:23 Dose: 15 gm Documented by: Miscellaneous Information (Pharmacy Glycemic Mgmt Consult) 1 ea N/A UD PRN PRN Reason: Consult Stop: 09/01/21 14:58 *Durezol*Non- Formulary Patient's Own Med 1 ea OPL BID [facility] Stop: 08/16/21 23:59 Last Admin: 08/15/21 08:17 Dose: 1 drops Documented by: *Prolensa*Non- Formulary Patient's Own Med 1 ea OPL DAILY [facility] Stop: 08/16/21 23:59 Last Admin: 08/15/21 08:18 Dose: Not Given Documented by: Ondansetron HCl (Ondansetron Inj 2 Mg/Ml 2 Ml Vial) 4 mg IV Q6H PRN PRN Reason: Nausea Stop: 08/31/21 15:12 Last Admin: 08/10/21 07:46 Dose: 4 mg Documented by: Polyethylene Glycol (Polyethylene (Miralax) 17 Gm Pack) 17 gm PO DAILY PRN PRN Reason: Constipation Stop: 08/31/21 15:12 Last Admin: 08/05/21 12:24 Dose: 17 gm Documented by: Sennosides (Senna 8.6 Mg Tab) 8.6 mg PO QPM RISHI Stop: 09/04/21 20:59 Last Admin: 08/14/21 21:36 Dose: Not Given Documented by: Torsemide (Torsemide 10 Mg Tab) 40 mg PO BID RISHI Stop: 09/13/21 20:59 Last Admin: 08/15/21 08:16 Dose: 40 mg Documented by: Warfarin Sodium (Warfarin Sod 3 Mg Tab) 3 mg PO DAILY@1600 [facility] Stop: 09/09/21 15:59 Last Admin: 08/14/21 17:12 Dose: 3 mg Documented by: Warfarin Sodium (Warfarin Sod 4 Mg Tab) 4 mg PO DAILY@1600 RISHI Stop: 09/09/21 15:59 Last Admin: 08/14/21 17:11 Dose: 4 mg Documented by: (1) Pulmonary edema Chronicity: acute Qualified Code(s): J81.0 - Acute pulmonary edema
[2021-08-15] MEDS: WARFARIN SOD 4 MG TAB PO SCH (17:16)
[2021-08-15] MEDS: WARFARIN SOD 3 MG TAB PO SCH (17:16)
--- NOTE | 2021-08-16 07:27 | Discharge Summary ---
Date of Service August 15, 2021 Admission HPI Per Admitting Provider 75 YOM with past medical history of : CAD, NC 2007, HFrEF, BIV defibrillator/pacer, DM II (on insulin), HLD, CKD IV, Hypothyroidism, chronically anticoagulated with Coumadin for Afib, Aortic Stenosis. Patient comes into the EMD today via EMS for dyspnea and hypoxia. Patient was discharged earlier from PACU following cataract surgery of his left eye. From review of record, this shows managed with NC with SPO2 92% and 2mg of Versed. Patient also endorses he has not taken any of his medications today, he is on Warfarin for his afib history and INR is 1.5 today as he held this 3 days for his cataract surgery. Patient states that he has been getting short of breath over the past month with inability to lie flat as well as needing to take frequent rests while doing things around the house. The patient is mostly dependant with wheel chair secondary to right lower extremity amputation with prosthesis. Patient endorses that he does not follow up with cardiology frequently or nephrology. He has noticed that he has been having decrease response with his diuretics- "some days it is good and others not so much". Patient also endorses increase in cough and sputum production, he previously smoked but quit 35 years ago. Sputum is normally thick white with occasional yellowness to it over the past month. Today it is thinner and light pink tinged. Has cristina therapeutic on his Warfarin since May 13- he normally takes 7mg per day. In the EMD the patient was placed on Oxymask with SPO2 93-98%, given 40mg IV lasix, had a CXR done and routine labs. CXR is consistent with his CXR that he had in 2010 with pulmonary edema, WBC at 14, and troponin at 0.214 Patient will be admitted to PCU to continue to diurese, follow pulmonary status. Continue to trend out Troponin and ECG and obtain ECHO. Currently symptoms consistent with acute HF exacerbation secondary to pulmonary edema. Does not endorse he follows a low sodium diet, but does endorse medical compliance, although he has noticed symptoms getting worse as above. COVID test NEGATIVE on admission. Principal Diagnosis ventricular arrhythmia Discharge Exam General: awake, alert, no apparent distress Head: Normocephalic, atraumatic ENT: PERRL, EOMI, no pharyngeal exudate, mucous membranes moist Neuro: AAO x 3, speech clear and appropriate, strength intact bilaterally 5/5 (excluding right BKA), sensation intact and equal all extremities and dermatomes, no pronator drift Chest: equal rise and fall of the chest, scattered crackles through out with end expiratory wheeze in the bases, on 2 Liters nasal cannula Cardiac: Regular rate and rhythm, telemetry reviewed- 100% V Pace, skin warm dry, cap refill <3 seconds, peripheral pulses +2 no JVD, systollic murmur radiates to carotids, +2 edema to left lower leg up to just below the knee GI: NABS x 4 quadrants, soft, nontender to palpation, no rebound, guarding or tenderness : Spontaneously voiding, no pain, no CVA tenderness, does endorse some difficulty completely emptying bladder Extremities: Normal inspection, no peripheral edema or erythema, calfs nontender to palpation Psych: Normal mood and affect Skin: well healing venous ulcerations to left lower leg Discharge Data Allergies Allergy/AdvReac Type Severity Reaction Status Date / Time No Known Allergies Allergy Verified 08/01/21 06:39 Consultations 08/01/21 12:27 ED Decision to Admit Stat 08/01/21 18:50 Consult Cardiology Routine 08/02/21 12:41 Consult Nephrology Routine 08/11/21 11:37 Consult Palliative Care Routine Diabetes Follow up Diabetes Follow-up Needed for HgbA1c >9% Hospital Course (1) Ventricular arrhythmia: Per pacemaker interrogation total x6 VF shocks this admission. Episodes started on August 08 but provider not aware until today. Additional 5 episodes NSVT mostly last 2 nights. Transferred to PCU Discussed with Dr Thomas and patient on amiodarone No shocks for past 72 hours. (2) CHF (congestive heart failure): Acute on chronic heart failure- HFrEF with chronic renal failure - patient endorses symptoms worsening over the past 1-2 months - continues to diurese with negative balance: will switch bumex to torsemide PO.. Appreciate palliative care consult: now dnr/dni - BNP increasing although I suspect that is related to cardiac arrhythmias +/- defibrillation - TTE - LVEF 40-45%, focal severe hypokinesis of the mid and apical septus with mild diffuse LV, mild-mod aortic stenosis - strict I&Os, daily weights -Patient is negative 13 liters (3) Nonischemic cardiomyopathy: Continue metoprolol succinate 50mg PO BID Unable to take ACEi/ARB due to CKD stage IV (4) Hypoxia: *Acute respiratory failure with hypoxia resolved. CHF - diurese as above Infectious cause ruled out - Patient feels breathing has improved since coming to ER - Oxygen support for SPO2 >94% - Procalcitonin negative =will discharge on torsemide daily; this will replace lasix. (5) Elevated troponin: Likely type II secondary to hypoxia and volume stress - trop peaked at 7.98 - Due to lack of symptoms and CKD, risk of cardiac cath (CKD) outweighs benefit - consulted cardio: no cardiac cath is indicated at the moment due to decreased kidney function - started aspirin as unable to rule out coronary artery disease, although he has known nonischemic cardiomyopathy unable to perform current cardiac cath (6) CKD (chronic kidney disease) stage 4, GFR 15-29 ml/min: Chronic, suspect recent increase in Cr due to cardiac arrhythmias - follow BMP daily with ditorres (7) Biventricular ICD (implantable cardioverter-defibrillator) in place: BiV- DDDR (afib underlying) Rate 60BMP; Upper tracking 120; Upper AT 170, VF: >200 - Appropriate fire and capture on ECG (8) Atrial fibrillation: As above - continue metoprolol - restarted warfarin 08/05, now therapeutic but likely to become supratherapeutic as amiodarone started. (9) Hypertension: Continue Hydralazine, Metoprolol, ISDN, diuretics as above - adjustment may be needed following evaluation and diuresing (10) Chronic venous insufficiency: Follows with wound care- well healed ulcerations to left leg- patient is phyllis compression stocking (11) Hypothyroidism: TSH WNL in Dec Continue levothyroxine 112 mcg PO daily (12) T2DM (type 2 diabetes mellitus): HbA1C 9.3 Appreciate pharmacy consult for basal bolus insulin control GLP-1 possibility recommended by wellness educator however in setting of CKD stage IV would advise against this given paucity of evidence in these patients VTE Prophylaxis - continue warfarin 7mg PO daily but likely to become supratherapeutic and may need reduction with starting on amiodarone, PTINR daily will need close INR monitoring at discharge. Total Time Total Time Spent Total Time Spent (In Minutes): 32 Discharge Plan Discharge Items Patient Disposition: Home - Self-Care Reason For Visit: HYPOXIA, HEART FAILURE Discharge Diagnosis: heart failure Activity: Resume your previous activity Non-emergency contact: Primary Care Provider Call non-emergency contact if: you have any medication questions Follow-up/Referrals: Aaron Keller MD [Primary Care Provider] - 08/22/21 1:00 pm Diet: Carb Consistent or DM2, Heart Healthy and Low Sodium (2gm) Fluids: 1500ml (6 cups) Addtl Attending Provider Instructions: amiodarone 200 mg twice daily torsemide 40 daily for discharge INR needs to be checked closely as amiodarone can increase level. Close PCP/ Cardioology and Nephrology followup. Need to monitor INR in 3-5 days. Pending Studies at Discharge: No Stand-Alone Forms: My [facility] invino, Smoking Cessation Medications and DC Order Prescriptions: New isosorbide dinitrate 20 mg Tablet 20 mg PO 0700,1200,1700 Qty: 90 RF: 0 amiodarone 200 mg Tablet 200 mg PO BID Qty: 60 RF: 0 atorvastatin 10 mg Tablet 10 mg PO QAM Qty: 30 RF: 0 aspirin 81 mg Tablet,Delayed Release (Dr/Ec) 81 mg PO QAM Qty: 30 RF: 0 torsemide 10 mg Tablet 40 mg PO DAILY Qty: 30 RF: 0 Continued warfarin 1 mg tablet 2 mg PO DAILY RF: 0 metoprolol tartrate 50 mg tablet 50 mg PO BID RF: 0 allopurinol 300 mg tablet 300 mg PO QAM RF: 0 hydralazine 50 mg tablet 50 mg PO BID RF: 0 levothyroxine 112 mcg tablet 112 mcg PO QAM RF: 0 insulin asp prt-insulin aspart [Novolog Mix 70-30 U-100 Insuln] 100 unit/mL (70-30) solution 100 unit subcut QAM RF: 0 fenofibrate nanocrystallized 48 mg tablet 48 mg PO QAM RF: 0 insulin asp prt-insulin aspart [Novolog Mix 70-30 U-100 Insuln] 100 unit/mL (70-30) solution 90 unit subcut QPM RF: 0 cholecalciferol (vitamin D3) [Vitamin D3] 1,000 unit Capsule 1,000 unit PO QAM RF: 0 Fish Oil 360 mg-144 mg- 216 mg-1,200 mg Capsule,Delayed Release(Dr/Ec) 1 cap PO QAM RF: 0 warfarin 5 mg tablet 5 mg PO DAILY RF: 0 ascorbic acid (vitamin C) [Vitamin C] 500 mg Tablet 500 mg PO DAILY RF: 0 Discontinued simvastatin 40 mg tablet 40 mg PO QAM RF: 0 furosemide 40 mg tablet 40 mg PO QAM RF: 0 Durezol 0.05 % drops 1 drp OPL BID RF: 0 gatifloxacin 0.5 % drops 1 drp OPL TID RF: 0 Discharge Orders: Discharge Order (Routine); Ordered 08/15/21 Ordered By: Tanner Cantu/Other Patient Handouts: A1C, High Blood Sugar (Hyperglycemia), Hypoglycemia (Low Blood Sugar), Managing Type 2 Diabetes Admission Data Admit Date/Time: 08/01/21 14:09 Attending Provider: Tanner Kim Admit Provider: Tanner Kim Primary Care Provider: Aaron Keller Other Providers: Tanner Kim ; Champ Boland ; Elfego Pryor ; Dante Simmons ; Morgan Mcdowell ; Stanford Thomas ; Cristian Carmona ; Azra Medel ; Jennifer Griffiths ; Nancie Mcallister ; Mynor Miles ; Iris Rosas ; Augustine Reina ; Angela Valencia ; Starr Mata ; Lalita Goodwin ; Jordy Michaud ; Kell Diaz. Other Interventions: Discharge Summary Assessment (RN) Last Done: 08/15/21 16:12 Coding Level of Care Code D/C DAY MANAGEMENT >30 MINS Diagnoses Ventricular arrhythmia I49.9 CHF (congestive heart failure) I50.9 Nonischemic cardiomyopathy I42.8 Hypoxia R09.02 Elevated troponin R77.8 CKD (chronic kidney disease) stage 4, GFR 15-29 ml/min N18.4 Biventricular ICD (implantable cardioverter-defibrillator) in place Z95.810 Atrial fibrillation I48.91 Atrial fibrillation type: unspecified Hypertension I10 Hypertension type: essential hypertension Chronic venous insufficiency I87.2 Hypothyroidism E03.9 Hypothyroidism type: acquired T2DM (type 2 diabetes mellitus) E11.9
== END 2021-08-15 18:20 | disposition home or self-care (01) | DRG 987 ==
LOC: ED 11:06 → SUATTDRO 14:09 → 2S 14:09 → 3N 08-05 11:08 → 2S 08-11 11:14

== ENCOUNTER 2021-10-03 16:09 | Inpatient (IN) ==
[2021-10-03 17:14] LABS: Basophils # (auto) 0.03 K/uL (0-0.2); Basophils % (auto) 0.3 %; Hematocrit (blood only) 26.5 % (42-52); Hemoglobin 7.9 g/dL (14.0-18.0); Immature Granulocytes # (auto) 0.02 K/uL (0.00-0.02); Immature Granulocytes % (auto) 0.2 %; Lymphocytes # (auto) 0.88 K/uL (1.2-3.4); Lymphocytes % (auto) 8.9 %; Mean Corpuscular Hemoglobin 29.7 pg (25-34); Mean Corpuscular Hgb Conc 29.8 g/dL (32-36); Mean Corpuscular Volume 99.6 fL (80-100); Mean Platelet Volume 10.5 fL (7.4-10.4); Monocytes # (auto) 0.85 K/uL (0.11-0.59); Monocytes % (auto) 8.6 %; Neutrophils # (auto) 7.84 K/uL (1.4-6.5); Platelet Count 250 K/uL (130-400); RDW Coefficient of Variation 18.9 % (11.5-14.5); RDW Standard Deviation 68.1 fL (36.4-46.3); Red Blood Count 2.66 M/uL (4.7-6.1); White Blood Count 9.92 K/uL (4.8-10.8)
--- NOTE | 2021-10-03 17:15 | XRay Report ---
XR chest 1V portable CLINICAL HISTORY: Chest Pain. COMPARISON STUDY: 08/08/2021 TECHNIQUE: 1 view of the chest FINDINGS: Single frontal view of the chest demonstrates the heart to be enlarged with dual lead ICD pacer in pl katie. Compared to previous examination, there is increased prominence of the interstitial markings mos t characteristic of mild interstitial edema rather than interstitial fibrosis. There is central vascu lar congestion as well. There is no evidence for pleural effusion. There are no confluent alveolar op acities. There is no acute osseous pathology. IMPRESSION: Increased prominence of the interstitial markings which are indistinct with the findings most characteristic of mild interstitial edema rather than interstitial fibrosis. There is also centr al vascular congestion. ACT 112: Negative or not required by law. Electronically signed by: Edmond Morales M.D. 10/03/2021 5:14 PM
[2021-10-03 17:33] LABS: Partial Thromboplastin Ratio 1.7; Prothrombin Time 80.6 Seconds (9.0-12.0)
[2021-10-03 17:35] LABS: INR 9.5 (0.9-1.1); Partial Thromboplastin Time 45.2 Seconds (21.0-31.0)
[2021-10-03 17:41] LABS: Calcium 8.9 mg/dl (8.5-10.1); Troponin I 0.027 ng/ml (0-0.045)
[2021-10-03 17:48] LABS: Base Excess VBG -2.3 mEq/L; HCO3 VBG 23 mmol/L; PCO2 VBG 38 mmHg (38-50); PO2 VBG 30 mmHg; pH VBG 7.39 (7.36-7.41)
[2021-10-03 18:01] LABS: Hypochromasia Present; Polychromasia 1+
[2021-10-03 18:02] LABS: Creatinine Clr Calc Pharmacy 20.2 ml/min; Est GFR (African American) 13.7 ml/min; Est GFR (Non-African American) 11.9 ml/min
[2021-10-03 18:03] LABS: Oxygen Saturation VBG < 60.0 %
--- NOTE | 2021-10-03 18:43 | Emergency Department Note ---
History of Present Illness General Chief Complaint: Shortness of Breath/Dyspnea Stated Complaint: SOB Time Seen by Provider: 10/03/21 16:38 History of Present Illness Provider Complaint: shortness of breath and cough Onset (ago): day(s) (2) Severity: moderate Consistency/Duration: + constant Relieved By: + oxygen and + upright position Exacerbated By: + lying flat, + exertion, + movement and + coughing Context: no recent illness, no recent travel or no trauma/injury Known history of: congestive heart failure Associated symptoms: + chest pain, + cough, + sputum production (yellow with blood mixed in sputum) and + nausea/vomiting; no orthopnea, no polyuria, no polydipsia, no paresthesias, no palpitations, no carpopedal spasm, no hemoptysis, no syncope, no abdominal pain, no rash, no sense of impending doom, no dizziness or no lightheadedness Related Data Home oxygen amount: none Home Medications Medication Instructions Recorded Confirmed Type allopurinol 300 mg tablet 300 mg PO [facility] 04/22/19 10/03/21 History fenofibrate nanocrystallized 48 mg 48 mg PO M 04/22/19 10/03/21 History tablet hydralazine 50 mg tablet 50 mg PO BID 04/22/19 10/03/21 History insulin aspar prt-insulin aspart 90 unit SUBCUT QPM 04/22/19 10/03/21 History 100 unit/mL (70-30) subcutaneous soln (Novolog Mix 70-30 U-100 Insuln) insulin aspar prt-insulin aspart 100 unit SUBCUT QAM 04/22/19 10/03/21 History 100 unit/mL (70-30) subcutaneous soln (Novolog Mix 70-30 U-100 Insuln) levothyroxine 112 mcg tablet 112 mcg PO QAM 04/22/19 10/03/21 History metoprolol tartrate 50 mg tablet 50 mg PO BID 04/22/19 10/03/21 History cholecalciferol (vitamin D3) 25 1,000 unit PO QAM 05/31/19 10/03/21 History mcg (1,000 unit) capsule (Vitamin D3) omega-3 360 mg-dha 144 mg-epa 216 1 cap PO QAM 05/31/19 10/03/21 History mg-fish oil 1,200 mg capsule,del rel (Fish Oil) warfarin 1 mg tablet 2 mg PO DAILY tab 05/15/21 10/03/21 History warfarin 5 mg tablet 5 mg PO DAILY tab 05/15/21 10/03/21 History ascorbic acid (vitamin C) 500 mg 500 mg PO DAILY 08/01/21 10/03/21 History tablet (Vitamin C) amiodarone 200 mg tablet 200 mg PO BID #60 tab 08/15/21 10/03/21 Rx atorvastatin 10 mg tablet 10 mg PO QAM #30 tab 08/15/21 10/03/21 Rx isosorbide dinitrate 20 mg tablet 20 mg PO 0700,1200,1700 #90 tab 08/15/21 10/03/21 Rx torsemide 10 mg tablet 40 mg PO DAILY #30 tab 08/15/21 10/03/21 Rx Allergies Allergy/AdvReac Type Severity Reaction Status Date / Time No Known Allergies Allergy Verified 08/01/21 06:39 Past Med/Surg History Medical History Atrial fibrillation 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 Bilateral interstitial pneumonia hx CAD (coronary artery disease) Cardiac defibrillator in place follows with [facility] cardiology ([facility]) CHF (congestive heart failure) CKD (chronic kidney disease) stage 4, GFR 15-29 ml/min Heart disease Hx of colonic polyps Hyperlipidemia Hypertension Hypothyroidism ICD (implantable cardioverter-defibrillator) battery depletion Pt with [facility]V ICD at [facility]; for a generator change; discussed the procedure and potential risks with the patient which include but not limited to , arrhythmia, stroke, heart attack, bleeding and infection. consent obtained LBBB (left bundle branch block) Myocardial Infarction (~2007) reason for the cardio/defib. Nonischemic cardiomyopathy Palliative care encounter Postoperative hematoma hx PVD (peripheral vascular disease) T2DM (type 2 diabetes mellitus) Surgical History Biventricular ICD (implantable cardioverter-defibrillator) in place initially placed in 2007 secondary to nonischemic [employer] and converted to a BiV in 02/2013 with recent generator exchange 04/19/19 History of colonoscopy History of left heart catheterization No obstructive coronary disease, 2007 Family History Father Stroke Mother Diabetes Social History Smoking Status: Former smoker Tobacco Type: Cigarettes Cigarettes Per Day: 1984; Second Hand Exposure: No; Hx Alcohol Use: No Hx Substance Use: No Preferred Language: P[place] Communication Ability: Effective Visual Impairment: Limited Hearing Ability: Normal 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 Beliefs That Will Affect Care: None marital status: Current Living Situation: Alone Current Living Situation Comment: lives in house alone current occupational status: retired How many Children do You have: 2 How many Children do You have Comment: family fairly local and able to help with care Feels Safe at Home: Yes Diet Comment: stated he "watches sweet", but it's difficult Assistive Devices: Prosthesis Physical Exam Vital Signs: Vital Signs - 24 hr 10/03/21 16:19 10/03/21 16:34 10/03/21 16:40 Temperature 37.5 C Temperature Source Oral Pulse Rate 85 82 82 Pulse Rate from Sp O2 Sensor 82 82 Respiratory Rate 20 Blood Pressure 167/85 H Blood Pressure Jennifer n 112 Blood Pressure Pos ition Lying Pulse Oximetry 98 90 Oxygen Delivery Me thod Nasal Cannula Nasal Cannula Oxygen Flow Rate 4 4 Sepsis Recent Feve r Within 48 Hours No Sepsis New/Unexpla ined Change in Men lv Status No Sepsis Action Take n by Nursing No Action Required 10/03/21 16:50 10/03/21 17:00 10/03/21 17:10 Temperature Temperature Source Pulse Rate 82 82 81 Pulse Rate from Sp O2 Sensor 82 82 81 Respiratory Rate Blood Pressure 165/86 H Blood Pressure Jennifer n 112 Blood Pressure Pos ition Pulse Oximetry 92 92 96 Oxygen Delivery Me thod Nasal Cannula Nasal Cannula Nasal Cannula Oxygen Flow Rate 4 4 4 Sepsis Recent Feve r Within 48 Hours Sepsis New/Unexpla ined Change in Men lv Status Sepsis Action Take n by Nursing 10/03/21 17:20 10/03/21 17:30 10/03/21 17:40 Temperature Temperature Source Pulse Rate 80 80 78 Pulse Rate from Sp O2 Sensor 80 80 78 Respiratory Rate 22 Blood Pressure Blood Pressure Jennifer n Blood Pressure Pos ition Pulse Oximetry 98 96 98 Oxygen Delivery Me thod Oxymask Oxymask Oxymask Oxygen Flow Rate 6 6 6 Sepsis Recent Feve r Within 48 Hours Sepsis New/Unexpla ined Change in Men lv Status Sepsis Action Take n by Nursing 10/03/21 17:50 10/03/21 18:00 Temperature Temperature Source Pulse Rate 78 78 Pulse Rate from Sp O2 Sensor 79 78 Respiratory Rate 23 Blood Pressure 140/76 Blood Pressure Jennifer n 97 Blood Pressure Pos ition Pulse Oximetry 97 93 Oxygen Delivery Me thod Oxymask Oxymask Oxygen Flow Rate 6 6 Sepsis Recent Feve r Within 48 Hours Sepsis New/Unexpla ined Change in Men lv Status Sepsis Action Take n by Nursing Physical Exam: Physical Exam GENERAL: He is oriented to person, place, and time. He appears well-developed and well-nourished. He does not appear distressed. HENT: Exam performed. - Head: Normocephalic and atraumatic. - Right Ear: External ear normal. No mastoid tenderness. - Left Ear: External ear normal. No mastoid tenderness. - Mouth/Throat: The oropharynx is clear and moist. No trismus in the jaw. No dental abscesses or uvula swelling. No oropharyngeal exudate or tonsillar abscesses. EYES: Conjunctivae and EOM are normal. Pupils are equal, round, and reactive to light. Right eye exhibits no discharge. Left eye exhibits no discharge. No scleral icterus. NECK: Normal range of motion. Neck supple. No JVD present. No spinous process tenderness present. No carotid bruit present. No rigidity. No tracheal deviation and normal range of motion present. No Brudzinski's sign and no Kernig's sign noted. CV: Normal rate, regular rhythm, normal heart sounds and intact distal pulses. Palpable radial pulses bue. PULM/CHEST: Rales bilaterally. ABD: The abdomen is soft. Bowel sounds are normal. He has no distension. No mass is present. There is no tenderness. There is no rebound, no guarding, no Clemons's sign and no tenderness at McBurney's point. Rovsig negative. MUSC/SKEL: Right-sided BKA. Left lower extremity 3+ pitting edema. LYMPH: No cervical adenopathy. NEURO: Motor and sensation grossly intact. Course Course 1637: The patient was evaluated in room C3. A complete history and physical exam was performed Cardiac monitoring: An order was placed for continuous cardiac monitoring. The monitor shows a rate of 80 with paced rhythm On arrival the patient is hypoxic on room air. Patient placed on 4 L oxygen which improved his oxygen saturation. 1830: Vital signs stable on supplemental oxygen. Imaging shows cardiomegaly and cephalization. Labs show an elevated proBNP. Troponin negative. Creatinine at baseline. INR is supratherapeutic. Patient's hemoglobin is 7.9. Patient reports no GI bleeding. [facility] [place] [facility]. Diuretics ordered for the patient. Medical Decision Making Laboratory Data Result diagrams: 10/03/21 16:55 10/03/21 16:55 Lab Results 10/03/21 10/03/21 10/03/21 Range/Units 16:55 16:55 16:55 WBC 9.92 (4.8-10.8) K/uL RBC 2.66 L (4.7-6.1) M/uL Hgb 7.9 L (14.0-18.0) g/dL Hct 26.5 L (42-52) % MCV 99.6 (80-100) fL MCH 29.7 (25-34) pg MCHC 29.8 L (32-36) g/dL RDW Std Deviation 68.1 H (36.4-46.3) fL RDW Coeff of Nicolasa 18.9 H (11.5-14.5) % Plt Count 250 (130-400) K/uL MPV 10.5 H (7.4-10.4) fL Immature Gran % (Auto) 0.2 % Neut % (Auto) 79.0 % Lymph % (Auto) 8.9 % [place] % (Auto) 8.6 % Eos % (Auto) 3.0 % Baso % (Auto) 0.3 % Neut # (Auto) 7.84 H (1.4-6.5) K/uL Lymph # (Auto) 0.88 L (1.2-3.4) K/uL [place] # (Auto) 0.85 H (0.11-0.59) K/uL Eos # (Auto) 0.30 (0-0.5) K/uL Baso # (Auto) 0.03 (0-0.2) K/uL Immature Gran # (Auto) 0.02 (0.00-0.02) K/uL Polychromasia 1+ Hypochromasia Present PT 80.6 H (9.0-12.0) Seconds INR 9.5 H* (0.9-1.1) APTT 45.2 H* (21.0-31.0) Seconds PTT Ratio 1.7 VBG pH (7.36-7.41) VBG pCO2 (38-50) mmHg VBG pO2 mmHg VBG HCO3 mmol/L VBG O2 Saturation % VBG Base Excess mEq/L Barometric Pressure mm/Hg Sodium 139 (136-145) mmol/L Potassium 4.0 (3.5-5.1) mmol/L Chloride 108 H (98-107) mmol/L Carbon Dioxide 22 (21-32) mmol/L Anion Gap 9.0 (3-11) BUN 64 H (7-18) mg/dl Creatinine 4.51 H* (0.6-1.4) mg/dl Est Cr Clr Drug Dosing 20.2 ml/min Est GFR ( Amer) 13.7 ml/min Est GFR (Non-Af Amer) 11.9 ml/min BUN/Creatinine Ratio 14.0 (10-20) Glucose 238 H (70-99) mg/dl Calcium 8.9 (8.5-10.1) mg/dl Troponin I 0.027 (0-0.045) ng/ml NT-Pro-B Natriuret Pep 90496 H (0-900) pg/ml Lipase 220 (73-393) U/L COVID-19 Eval Order SARS-CoV-2 (PCR) (Negative) Influenza Type A Ag (Neg) Influenza Type B Ag (Neg) 10/03/21 10/03/21 10/03/21 Range/Units 16:55 16:55 16:55 WBC (4.8-10.8) K/uL RBC (4.7-6.1) M/uL Hgb (14.0-18.0) g/dL Hct (42-52) % MCV (80-100) fL MCH (25-34) pg MCHC (32-36) g/dL RDW Std Deviation (36.4-46.3) fL RDW Coeff of Nicolasa (11.5-14.5) % Plt Count (130-400) K/uL MPV (7.4-10.4) fL Immature Gran % (Auto) % Neut % (Auto) % Lymph % (Auto) % [place] % (Auto) % Eos % (Auto) % Baso % (Auto) % Neut # (Auto) (1.4-6.5) K/uL Lymph # (Auto) (1.2-3.4) K/uL [place] # (Auto) (0.11-0.59) K/uL Eos # (Auto) (0-0.5) K/uL Baso # (Auto) (0-0.2) K/uL Immature Gran # (Auto) (0.00-0.02) K/uL Polychromasia Hypochromasia PT (9.0-12.0) Seconds INR (0.9-1.1) APTT (21.0-31.0) Seconds PTT Ratio VBG pH (7.36-7.41) VBG pCO2 (38-50) mmHg VBG pO2 mmHg VBG HCO3 mmol/L VBG O2 Saturation % VBG Base Excess mEq/L Barometric Pressure mm/Hg Sodium (136-145) mmol/L Potassium (3.5-5.1) mmol/L Chloride (98-107) mmol/L Carbon Dioxide (21-32) mmol/L Anion Gap (3-11) BUN (7-18) mg/dl Creatinine (0.6-1.4) mg/dl Est Cr Clr Drug Dosing ml/min Est GFR ( Amer) ml/min Est GFR (Non-Af Amer) ml/min BUN/Creatinine Ratio (10-20) Glucose (70-99) mg/dl Calcium (8.5-10.1) mg/dl Troponin I (0-0.045) ng/ml NT-Pro-B Natriuret Pep (0-900) pg/ml Lipase (73-393) U/L COVID-19 Eval Order Covid19 at [facility] SARS-CoV-2 (PCR) NEGATIVE (Negative) Influenza Type A Ag Neg for Influ A (Neg) Influenza Type B Ag Neg for Influ B (Neg) 10/03/21 Range/Units 17:26 WBC (4.8-10.8) K/uL RBC (4.7-6.1) M/uL Hgb (14.0-18.0) g/dL Hct (42-52) % MCV (80-100) fL MCH (25-34) pg MCHC (32-36) g/dL RDW Std Deviation (36.4-46.3) fL RDW Coeff of Nicolasa (11.5-14.5) % Plt Count (130-400) K/uL MPV (7.4-10.4) fL Immature Gran % (Auto) % Neut % (Auto) % Lymph % (Auto) % [place] % (Auto) % Eos % (Auto) % Baso % (Auto) % Neut # (Auto) (1.4-6.5) K/uL Lymph # (Auto) (1.2-3.4) K/uL [place] # (Auto) (0.11-0.59) K/uL Eos # (Auto) (0-0.5) K/uL Baso # (Auto) (0-0.2) K/uL Immature Gran # (Auto) (0.00-0.02) K/uL Polychromasia Hypochromasia PT (9.0-12.0) Seconds INR (0.9-1.1) APTT (21.0-31.0) Seconds PTT Ratio VBG pH 7.39 (7.36-7.41) VBG pCO2 38 (38-50) mmHg VBG pO2 30 mmHg VBG HCO3 23 mmol/L VBG O2 Saturation < 60.0 % VBG Base Excess -2.3 mEq/L Barometric Pressure 732.6 mm/Hg Sodium (136-145) mmol/L Potassium (3.5-5.1) mmol/L Chloride (98-107) mmol/L Carbon Dioxide (21-32) mmol/L Anion Gap (3-11) BUN (7-18) mg/dl Creatinine (0.6-1.4) mg/dl Est Cr Clr Drug Dosing ml/min Est GFR ( Amer) ml/min Est GFR (Non-Af Amer) ml/min BUN/Creatinine Ratio (10-20) Glucose (70-99) mg/dl Calcium (8.5-10.1) mg/dl Troponin I (0-0.045) ng/ml NT-Pro-B Natriuret Pep (0-900) pg/ml Lipase (73-393) U/L COVID-19 Eval Order SARS-CoV-2 (PCR) (Negative) Influenza Type A Ag (Neg) Influenza Type B Ag (Neg) Imaging Data Radiologist's Impression: Chest X-Ray 10/03/21 16:41 XR chest 1V portable CLINICAL HISTORY: Chest Pain. COMPARISON STUDY: 08/08/2021 TECHNIQUE: 1 view of the chest FINDINGS: Single frontal view of the chest demonstrates the heart to be enlarged with dual lead ICD pacer in place. Compared to previous examination, there is increased pr ominence of the interstitial markings most characteristic of mild interstitial edema rather than interstitial fibrosis. There is central vascular congestion as well. There is no evidence for pleural effusion. There are no confluent alveolar opacities. There is no acute osseous pathology. IMPRESSION: Increased prominence of the interstitial markings which are indistinct with the findings most characteristic of mild interstitial edema rather than interstitial fibrosis. There is also central vascular congestion. ACT 112: Negative or not required by law. Electronically signed by: Edmond Morales M.D. 10/03/2021 5:14 PM ECG Data Interpretation: Paced rhythm with a rate of 83. [place] 184 QRS [address] elevation or ST depression. [facility] Narrative 1638: The patient was evaluated in room C3. A complete history and physical exam was performed Cardiac monitoring: An order was placed for continuous cardiac monitoring. The monitor shows a rate of 80 with paced rhythm On arrival the patient is hypoxic on room air. Patient placed on 4 L oxygen which improved his oxygen saturation. 1830: Vital signs stable on supplemental oxygen. Imaging shows cardiomegaly and cephalization. Labs show an elevated proBNP. Troponin negative. Creatinine at baseline. INR is supratherapeutic. Patient's hemoglobin is 7.9. Patient reports no GI bleeding. [facility] [place] [facility]. Diuretics ordered for the patient. Impression & Plan Hypoxia, Acute exacerbation of CHF (congestive heart failure) Critical Care Time Critical Care Time: Yes Total Critical Care Time: 47 I have personally spent greater than 47 minutes of critical care time in the direct management of this patient. This includes bedside care, interpretation of diagnostic studies, and testing, discussion with consultants, patient, and family members, and other required patient management activities. This 47 minutes is in excess of all separately billable procedures. Discharge Plan Visit Data Chief Complaint: Shortness of Breath/Dyspnea Stated Complaint: SOB Discharge Problem: Hypoxia, Acute exacerbation of CHF (congestive heart failure) Patient Disposition: Admitted As Inpatient Forms Stand Alone Forms: My [facility] Prescriptions Prescriptions: No Action warfarin 1 mg tablet 2 mg PO DAILY RF: 0 metoprolol tartrate 50 mg tablet 50 mg PO BID RF: 0 allopurinol 300 mg tablet 300 mg PO QAM RF: 0 hydralazine 50 mg tablet 50 mg PO BID RF: 0 levothyroxine 112 mcg tablet 112 mcg PO QAM RF: 0 insulin asp prt-insulin aspart [Novolog Mix 70-30 U-100 Insuln] 100 unit/mL (70-30) solution 100 unit subcut QAM RF: 0 fenofibrate nanocrystallized 48 mg tablet 48 mg PO QAM RF: 0 insulin asp prt-insulin aspart [Novolog Mix 70-30 U-100 Insuln] 100 unit/mL (70-30) solution 90 unit subcut QPM RF: 0 cholecalciferol (vitamin D3) [Vitamin D3] 1,000 unit Capsule 1,000 unit PO QAM RF: 0 Fish Oil 360 mg-144 mg- 216 mg-1,200 mg Capsule,Delayed Release(Dr/Ec) 1 cap PO QAM RF: 0 warfarin 5 mg tablet 5 mg PO DAILY RF: 0 ascorbic acid (vitamin C) [Vitamin C] 500 mg Tablet 500 mg PO DAILY RF: 0 isosorbide dinitrate 20 mg Tablet 20 mg PO 0700,1200,1700 Qty: 90 RF: 0 amiodarone 200 mg Tablet 200 mg PO BID Qty: 60 RF: 0 atorvastatin 10 mg Tablet 10 mg PO QAM Qty: 30 RF: 0 torsemide 10 mg Tablet 40 mg PO DAILY Qty: 30 RF: 0 Referrals Referrals: Aaron Keller MD [Primary Care Provider] -
[2021-10-03] MEDS ORDERED: BUMETANIDE 2 MG in SYRINGE 0 ML IV ONE (19:00)
--- NOTE | 2021-10-03 19:46 | History & Physical Report ---
Date of Service October 03, 2021 Assessment & Plan (1) Acute exacerbation of CHF (congestive heart failure): Plan: 75yo Male PMH CHF DM2 CKD IV afib on warfarin, CAD HTN HLD ICD placement chronic venous stasis here for SOB. Acute on chronic HFrEF -given bumex 2mg IV in ED -93% 6L oxymask -BNP 97650 -Mg 2.8 -troponin 0.027 -CXR = Increased prominence of the interstitial markings which are indistinct with the findings most characteristic of mild interstitial edema rather than interstitial fibrosis. There is also central vascular congestion. -EKG = atrial sensed ventricular paced rhythm -admit PCU/telemetry -cardiology consulted -ordered BIPAP HS -diet heart healthy carb consistent low sodium with 1500ml water restriction -placed on bumex 2mg IV BID, torsemide on hold -trend bmp, cbc, inr -continue isosorbide dinitrite 20mg TID -monitor I/o -patient has gained 11kg over 2 months -trop ordered at 1am CKD IV -BUN 64 (normal 40-60), creatinine 4.51 (normal 4) -nephrology consult placed -given bumex 2mg IV in ED -placed on bumex 2mg IB BID -trend bmp -patient has historically refused dialysis Supratherapeutic INR -PT 80.6 INR 9.5 -hold warfarin -received vitamin K 5mg IV in ED -recheck PT INR am Anemia -Hbg 7.9 (normal 9-10) -possibly 2/2 to fluid overload status -diurese, trend cbc -am retic count, iron studies, fecal occult, B12, folate DM2 -glycemic consult placed -carpenter mine consulted -07/2021 A1c 9.3 HTN -continue hydralzine 50mg BID -continue metoprolol tartrate 50mg BID -torsemide on hold -received bumex 2mg IV in ED Atrial Fibrillation -EKG = atrial sensed ventricular paced rhythm -hold warfarin given INR 9.5 -patient has ICD and pacer -continue amiodarone 200mg BID -continue metoprolol tartrate 50mg BID -cardiology consulted Hx Ventricular Fibrillation -monitor on tele -cont amiodarone Venous stasis of LLE -order compression stockings, leg elevation -DVT unlikely given his home warfarin HLD -continue fenofibrate 48mg -continue atorvastatin 10mg Gout -continue allopurinol 300mg Hypothyroidism -continue levothyroxine 112 mcg -12/2020 TSH 3.51 FENa: heart healthy carb consistent low sodium fluid restriction 1500ml Code Status: conditional, DNR, ok for intubation in a respiratory arrest DVT PPX: warfarin (on hold due to elevated INR), VANDANA stocking PT/OT: ordered Kendra Cintron Do PGY 1, FCM (2) CKD (chronic kidney disease) stage 4, GFR 15-29 ml/min: (3) T2DM (type 2 diabetes mellitus): (4) Hypertension: (5) Atrial fibrillation: (6) Venous stasis ulcer of left lower extremity: (7) Hypothyroidism: (8) Supratherapeutic INR: (9) Anemia: History of Present Illness Chief Complaint: SOB Primary Care Provider: Aaron Keller MD 75yo Male PMH CHF DM2 CKD IV afib on warfarin, CAD HTN HLD ICD placement chronic venous stasis here for SOB. He states he was hospitalized last month for a similar problem, cannot recall what it was but understands he was sent home without home oxygen. Patient states since his discharge he has been feeling progressively more SOB, coughing up bloody mucus, states it's hard to breath bending over and laying down, but sitting down not moving is ok. Patient states he has a daily diet of canned food. He denies any recent medication changes, illness. He denies chest pain, fever, chills, headache dizziness nausea vomitting. Patient states he probably takes his medication daily, is unsure what he takes exactly, he manages his own medication without assistance. Patient lives alone, ambulates with cane at baseline. He states his left leg is swollen but the wound has healed, checked by wound care. Patient quit smoking and drinking 35-40 years ago. He states he has seen his fast foods worker, slate mixer, and PCP within this past year. Patient denies home O2. During his last hospital admission in july, patient had several episodes of VF per pacemaker interrogation without symptoms. He was diuresed and sent home with torsemide and amiodarone, without oxygen. Allergies Allergy/AdvReac Type Severity Reaction Status Date / Time No Known Allergies Allergy Verified 08/01/21 06:39 Home Medications Medication Instructions Recorded Confirmed Type allopurinol 300 mg tablet 300 mg PO QAM 04/22/19 10/03/21 History fenofibrate nanocrystallized 48 mg 48 mg PO QAM 04/22/19 10/03/21 History tablet hydralazine 50 mg tablet 50 mg PO BID 04/22/19 10/03/21 History insulin aspar prt-insulin aspart 90 unit SUBCUT QPM 04/22/19 10/03/21 History 100 unit/mL (70-30) subcutaneous soln (Novolog Mix 70-30 U-100 Insuln) insulin aspar prt-insulin aspart 100 unit SUBCUT QAM 04/22/19 10/03/21 History 100 unit/mL (70-30) subcutaneous soln (Novolog Mix 70-30 U-100 Insuln) levothyroxine 112 mcg tablet 112 mcg PO QAM 04/22/19 10/03/21 History metoprolol tartrate 50 mg tablet 50 mg PO BID 04/22/19 10/03/21 History cholecalciferol (vitamin D3) 25 1,000 unit PO QAM 05/31/19 10/03/21 History mcg (1,000 unit) capsule (Vitamin D3) omega-3 360 mg-dha 144 mg-epa 216 1 cap PO QAM 05/31/19 10/03/21 History mg-fish oil 1,200 mg capsule,del rel (Fish Oil) warfarin 1 mg tablet 2 mg PO DAILY tab 05/15/21 10/03/21 History warfarin 5 mg tablet 5 mg PO DAILY tab 05/15/21 10/03/21 History ascorbic acid (vitamin C) 500 mg 500 mg PO DAILY 08/01/21 10/03/21 History tablet (Vitamin C) amiodarone 200 mg tablet 200 mg PO BID #60 tab 08/15/21 10/03/21 Rx atorvastatin 10 mg tablet 10 mg PO QAM #30 tab 08/15/21 10/03/21 Rx isosorbide dinitrate 20 mg tablet 20 mg PO 0700,1200,1700 #90 tab 08/15/21 10/03/21 Rx torsemide 10 mg tablet 40 mg PO DAILY #30 tab 08/15/21 10/03/21 Rx Past Med/Surg History Medical History Atrial fibrillation 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 Bilateral interstitial pneumonia hx CAD (coronary artery disease) Cardiac defibrillator in place follows with [facility] cardiology ([facility]) CHF (congestive heart failure) CKD (chronic kidney disease) stage 4, GFR 15-29 ml/min Heart disease Hx of colonic polyps Hyperlipidemia Hypertension Hypothyroidism ICD (implantable cardioverter-defibrillator) battery depletion Pt with BiV ICD at [facility]; for a generator change; discussed the procedure and potential risks with the patient which include but not limited to , arrhythmia, stroke, heart attack, bleeding and infection. consent obtained LBBB (left bundle branch block) Myocardial Infarction (~2007) reason for the cardio/defib. 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 and converted to a BiV in 02/2013 with recent generator exchange 04/19/19 History of colonoscopy History of left heart catheterization No obstructive coronary disease, 2007 Family History Father Stroke Mother Diabetes Social History Smoking Status: Former smoker Tobacco Type: Cigarettes Cigarettes Per Day: 1984; Second Hand Exposure: No; Do You Dip or Chew Tobacco: No; Hx Alcohol Use: No Hx Substance Use: No Preferred Language: [place] Communication Ability: Effective Visual Impairment: Limited Hearing Ability: Normal Cardiac Rn Required: No Beliefs That Will Affect Care: None marital status: Current Living Situation: Alone Current Living Situation Comment: lives in house alone current occupational status: retired How many Children do You have: 2 How many Children do You have Comment: family fairly local and able to help with care Other Information That Helps Us Care for You: No Feels Safe at Home: Yes Safety Concerns: Feels Safe At This Time Diet Comment: stated he "watches sweet", but it's difficult Assistive Devices: CPAP and Prosthesis Review of Systems Review of Systems: Positive SOB, cough, L leg swelling Negative fever chills Negative headache dizziness Negative chest pain palpitations Negative nausea vomitting diarrhea constipation Negative numbness tingling Physical Exam Physical Exam: General: Well appearing, age appropriate Heart: RRR, +S1 S2, no murmurs/gallops/rubs Lungs: wearing oxymask, wheeze present at b/l lung bases Abd: soft, NT/ND, +BS Extremities: right BKA, left leg swollen erythematous +2 pitting edema up to knee, no pain on palpation no increased warmth Results & Data Results & Data ([facility]) Vital Signs (Past 12 Hours) Vital Signs Temp Pulse Resp BP Pulse Ox 10/03/21 18:00 78 140/76 93 10/03/21 17:50 78 23 97 10/03/21 17:40 78 98 10/03/21 17:30 80 96 10/03/21 17:20 80 22 98 10/03/21 17:10 81 96 10/03/21 17:00 82 165/86 H 92 10/03/21 16:50 82 92 10/03/21 16:40 82 90 10/03/21 16:34 82 10/03/21 16:19 37.5 C 85 20 167/85 H 98 Laboratory Results Laboratory Results WBC 9.92 K/uL (4.8-10.8) 10/03/21 16:55 RBC 2.66 M/uL (4.7-6.1) L 10/03/21 16:55 Hgb 7.9 g/dL (14.0-18.0) L 10/03/21 16:55 Hct 26.5 % (42-52) L 10/03/21 16:55 MCV 99.6 fL (80-100) 10/03/21 16:55 MCH 29.7 pg (25-34) 10/03/21 16:55 MCHC 29.8 g/dL (32-36) L 10/03/21 16:55 RDW Std Deviation 68.1 fL (36.4-46.3) H 10/03/21 16:55 RDW Coeff of Nicolasa 18.9 % (11.5-14.5) H 10/03/21 16:55 Plt Count 250 K/uL (130-400) 10/03/21 16:55 MPV 10.5 fL (7.4-10.4) H 10/03/21 16:55 Immature Gran % (Auto) 0.2 % 10/03/21 16:55 Neut % (Auto) 79.0 % 10/03/21 16:55 Lymph % (Auto) 8.9 % 10/03/21 16:55 Webster % (Auto) 8.6 % 10/03/21 16:55 Eos % (Auto) 3.0 % 10/03/21 16:55 Baso % (Auto) 0.3 % 10/03/21 16:55 Neut # (Auto) 7.84 K/uL (1.4-6.5) H 10/03/21 16:55 Lymph # (Auto) 0.88 K/uL (1.2-3.4) L 10/03/21 16:55 Webster # (Auto) 0.85 K/uL (0.11-0.59) H 10/03/21 16:55 Eos # (Auto) 0.30 K/uL (0-0.5) 10/03/21 16:55 Baso # (Auto) 0.03 K/uL (0-0.2) 10/03/21 16:55 Immature Gran # (Auto) 0.02 K/uL (0.00-0.02) 10/03/21 16:55 Polychromasia 1+ 10/03/21 16:55 Hypochromasia Present 10/03/21 16:55 PT 80.6 Seconds (9.0-12.0) H 10/03/21 16:55 INR 9.5 (0.9-1.1) H* 10/03/21 16:55 APTT 45.2 Seconds (21.0-31.0) H* 10/03/21 16:55 PTT Ratio 1.7 10/03/21 16:55 VBG pH 7.39 (7.36-7.41) 10/03/21 17:26 VBG pCO2 38 mmHg (38-50) 10/03/21 17:26 VBG pO2 30 mmHg 10/03/21 17:26 VBG HCO3 23 mmol/L 10/03/21 17:26 VBG O2 Saturation < 60.0 % 10/03/21 17:26 VBG Base Excess -2.3 mEq/L 10/03/21 17:26 Barometric Pressure 732.6 mm/Hg 10/03/21 17:26 Sodium 139 mmol/L (136-145) 10/03/21 16:55 Potassium 4.0 mmol/L (3.5-5.1) 10/03/21 16:55 Chloride 108 mmol/L (98-107) H 10/03/21 16:55 Carbon Dioxide 22 mmol/L (21-32) 10/03/21 16:55 Anion Gap 9.0 (3-11) 10/03/21 16:55 BUN 64 mg/dl (7-18) H 10/03/21 16:55 Creatinine 4.51 mg/dl (0.6-1.4) H* 10/03/21 16:55 Est Cr Clr Drug Dosing 20.2 ml/min 10/03/21 16:55 Est GFR ( Amer) 13.7 ml/min 10/03/21 16:55 Est GFR (Non-Af Amer) 11.9 ml/min 10/03/21 16:55 BUN/Creatinine Ratio 14.0 (10-20) 10/03/21 16:55 Glucose 238 mg/dl (70-99) H 10/03/21 16:55 Calcium 8.9 mg/dl (8.5-10.1) 10/03/21 16:55 Magnesium 2.8 mg/dl (1.8-2.4) H 10/03/21 16:55 Troponin I 0.027 ng/ml (0-0.045) 10/03/21 16:55 NT-Pro-B Natriuret Pep 61113 pg/ml (0-900) H 10/03/21 16:55 Lipase 220 U/L (73-393) 10/03/21 16:55 COVID-19 Eval Order Covid19 at [facility] 10/03/21 16:55 SARS-CoV-2 (PCR) NEGATIVE (Negative) 10/03/21 16:55 Influenza Type A Ag Neg for Influ A (Neg) 10/03/21 16:55 Influenza Type B Ag Neg for Influ B (Neg) 10/03/21 16:55 Impressions Chest X-Ray 10/03/21 16:41 XR chest 1V portable CLINICAL HISTORY: Chest Pain. COMPARISON STUDY: 08/08/2021 TECHNIQUE: 1 view of the chest FINDINGS: Single frontal view of the chest demonstrates the heart to be enlarged with dual lead ICD pacer in place. Compared to previous examination, there is increased prominence of the interstitial markings most characteristic of mild interstitial edema rather than interstitial fibrosis. There is central vascular congestion as well. There is no evidence for pleural effusion. There are no confluent alveolar opacities. There is no acute osseous pathology. IMPRESSION: Increased prominence of the interstitial markings which are indistinct with the findings most characteristic of mild interstitial edema rather than interstitial fibrosis. There is also central vascular congestion. ACT 112: Negative or not required by law. Electronically signed by: Edmond Morales M.D. 10/03/2021 5:14 PM Medications Administered Current Inpatient Medications Phytonadione 5 mg/ Sodium (Chloride) 50.5 mls @ 101 mls/hr IV NOW STA Stop: 10/03/21 20:57 Code Status & VTE Plan Code Status Conditional, DNR, can intubate VTE Prophylaxis Plan VTE Prophylaxis will be ordered: Yes Supervising Physician Co-Signing Physician Notes I personally saw and examined the patient. I verified all ladd points and agree with resident physician Dr Kendra Cintron (PGY1) with the following exceptions and/or additions: 75 yo male well known to this service. Progressively more short of breath since discharge. High salt diet suspected at home with eating tinned ravioli for example. O/E HS1+2, RRR, no murmurs, quiet HS, Chest - Fine crackles posteriorly on exam, LLE 3+ edema to thighs, unable to visualize JVD A/P Acute on chronic HFrEF - diuresed well with Bumex 2mg IV BID last admission therefore will continue with this, given severity of his case will consult both his fast foods worker and slate mixer again to aid in fluid management, he is clearly hypervolemic on admission and suspect renal function will improve with diuresis, Low na, Fluid restrict, I&Os, daily weights. I am not concerned about ACS as troponin negative on admission and no acute worsening in last 24 hours, more of a slow progression, no need to repeat troponin. Hematemesis likely a result of elevated INR and pulmonary edema. INR reversed as above. Resident Activity Tracking Resident Involvement: Resident Care Provided Care Provided: Adult Hospital Medicine (1) Acute exacerbation of CHF (congestive heart failure) Heart failure type: unspecified Qualified Code(s): I50.9 - Heart failure, unspecified (2) Atrial fibrillation Atrial fibrillation type: unspecified Qualified Code(s): I48.91 - Unspecified atrial fibrillation (3) Hypothyroidism Hypothyroidism type: acquired Qualified Code(s): E03.9 - Hypothyroidism, unsp ecified (4) Hypertension Hypertension type: essential hypertension Qualified Code(s): I10 - Essential (primary) hypertension
[2021-10-03] MEDS ORDERED: PHYTONADIONE 5 MG in SODIUM CHLORIDE 0.9% 50 ML IV STA (20:28)
[2021-10-03] MEDS ORDERED: ACETAMINOPHEN 325 MG TAB PO PRN (21:21)
[2021-10-03] MEDS ORDERED: PHARMACY GLYCEMIC MGMT CONSULT PRN (21:21)
[2021-10-03] MEDS ORDERED: POLYETHYLENE (MIRALAX) 17 GM PACK PO PRN (21:21)
[2021-10-03] MEDS ORDERED: ONDANSETRON INJ 2 MG/ML 2 ML VIAL IV PRN (21:21)
[2021-10-03] MEDS ORDERED: GLUCOSE 10 TABS/TUBE PO PRN (22:00)
[2021-10-03] MEDS ORDERED: GLUCAGON FOR INJ 1 MG VIAL SQ PRN (22:00)
[2021-10-03] MEDS ORDERED: INSULIN HUMAN NPH SC ONE (22:00)
[2021-10-03] MEDS ORDERED: DEXTROSE 50% 50 ML SYRINGE IV PRN (22:00)
[2021-10-03] MEDS ORDERED: GLUCOSE 40% GEL 15 GM TUBE PO PRN (22:00)
[2021-10-03] MEDS ORDERED: CARBOHYDRATES FOR HYPOGLYCEMIA PO PRN (22:00)
[2021-10-03] MEDS: AMIODARONE 200 MG TAB PO SCH (22:20)
[2021-10-03] MEDS: METOPROLOL TARTRATE 50 MG TAB PO SCH (22:21)
[2021-10-03] MEDS: hydrALAZINE TAB 50 MG TAB PO SCH (22:21)
[2021-10-03] MEDS ORDERED: INFLUENZA VACCINE HIGH DOSE PF 65+ 0.7 ML SYR IM ONE (23:04)
[2021-10-03] MEDS: INSULIN ASPART 100 UNITS/ML 3 ML PEN SC SCH (23:10)
[2021-10-04] MEDS: INSULIN ASPART 100 UNITS/ML 3 ML PEN SC SCH ×6 (03:35→21:47)
[2021-10-04] MEDS: LEVOTHYROXINE SODIUM 112 MCG TABLET PO SCH (05:14)
[2021-10-04 05:15] LABS: Basophils # (auto) 0.02 K/uL (0-0.2); Basophils % (auto) 0.2 %; Eosinophils # (auto) 0.08 K/uL (0-0.5); Eosinophils % (auto) 0.8 %; Hematocrit (blood only) 25.9 % (42-52); Hemoglobin 7.8 g/dL (14.0-18.0); Immature Granulocytes # (auto) 0.03 K/uL (0.00-0.02); Immature Granulocytes % (auto) 0.3 %; Immature Retic Fraction 17.5 % (2.3-13.4); Lymphocytes % (auto) 9.1 %; Mean Corpuscular Hemoglobin 29.8 pg (25-34); Mean Corpuscular Hgb Conc 30.1 g/dL (32-36); Mean Corpuscular Volume 98.9 fL (80-100); Mean Platelet Volume 10.1 fL (7.4-10.4); Monocytes # (auto) 0.83 K/uL (0.11-0.59); Monocytes % (auto) 8.4 %; Neutrophils # (auto) 8.05 K/uL (1.4-6.5); Neutrophils % (auto) 81.2 %; Platelet Count 263 K/uL (130-400); RDW Coefficient of Variation 18.7 % (11.5-14.5); Red Blood Count 2.62 M/uL (4.7-6.1); Reticulated Hemoglobin 23.9 pg (28.2-36.6); Reticulocyte % 6.4 % (0.5-2.0); Reticulocytes # 0.17 10^6/uL (0.02-0.10); White Blood Count 9.91 K/uL (4.8-10.8)
[2021-10-04] MEDS: ISOSORBIDE DINITRATE 20 MG TAB PO SCH ×3 (05:15→16:57)
[2021-10-04 05:34] LABS: BUN Creatinine Ratio 14.2 (10-20); Calcium 8.9 mg/dl (8.5-10.1); Creatinine Clr Calc Pharmacy 19.8 ml/min; Est GFR (African American) 13.9 ml/min; Potassium 3.9 mmol/L (3.5-5.1)
[2021-10-04 05:49] LABS: Hypochromasia Present; Polychromasia 1+
[2021-10-04 06:09] LABS: Folate (Folic Acid) 17.8 ng/ml (>5.38)
[2021-10-04 06:50] LABS: Estimated Average Glucose 137 mg/dl; Hemoglobin A1C 6.4 % (4.5-5.6)
[2021-10-04] MEDS: allopurinoL 300 MG TAB PO SCH (08:06)
[2021-10-04] MEDS: ASCORBIC ACID 500 MG TAB PO SCH (08:07)
[2021-10-04] MEDS: AMIODARONE 200 MG TAB PO SCH ×2 (08:07→21:45)
[2021-10-04] MEDS: CHOLECALCIFEROL 1,000 UNITS 25 MCG TAB PO SCH (08:08)
[2021-10-04] MEDS: ATORVASTATIN 10 MG TAB PO SCH (08:08)
[2021-10-04] MEDS: OMEGA-3 (PURIFIED FISH OIL) 1 GM CAP PO SCH (08:09)
[2021-10-04] MEDS: hydrALAZINE TAB 50 MG TAB PO SCH ×2 (08:09→21:46)
[2021-10-04] MEDS: FENOFIBRATE NANOCRYSTALLIZED 48 MG TABLET PO SCH (08:09)
[2021-10-04] MEDS: METOPROLOL TARTRATE 50 MG TAB PO SCH ×2 (08:10→21:56)
[2021-10-04] MEDS: BUMETANIDE 2 MG in SYRINGE 0 ML IV SCH ×2 (08:15→16:56)
[2021-10-04] MEDS: INSULIN HUMAN NPH SC SCH ×2 (09:21→21:55)
--- NOTE | 2021-10-04 09:56 | Cardiology Consultation ---
Date of Consultation October 04, 2021 Assessment & Plan (1) Acute on chronic congestive heart failure: (2) Nonischemic cardiomyopathy: (3) Biventricular ICD (implantable cardioverter-defibrillator) in place: (4) CKD (chronic kidney disease) stage 4, GFR 15-29 ml/min: (5) Anemia: (6) Supratherapeutic INR: 75-year-old male with issues as noted with nonischemic cardiomyopathy with moderate left systolic dysfunction (echo July 2021) EF 40-45%, mild to moderate aortic stenosis and chronic systolic and diastolic heart failure superimposed on chronic renal insufficiency. Patient presents with acutely decompensated congestive heart failure right greater than left marked lower extremity edema and abdominal distention as well as mild pulmonary edema. INR supratherapeutic with associated symptoms of hemoptysis with cough, anemia No evidence of arrhythmias with patient remaining in sinus and ventricular paced rhythm Recommendations: Continue IV diuretics with nephrology assistance. Continue outpatient medications holding warfarin due to supratherapeutic level. The patient in the past has been reluctant to consider dialysis We will follow History of Present Illness Reason for Consultation: Acute on chronic decompensated congestive heart failure Requesting Physician: Dr. Cintron Attending Physician: Edin Mora, History of Present Illness Patient is a 75-year-old male with ongoing issues which include 1.Diffuse cardiomyopathy diagnosed in 2007 when presenting with atrial fibrillation with rapid ventricular response, pulmonary edema, and severe LV dysfunction extensive apical scar on echo and cardiac MRI 2.Diffuse moderate coronary atherosclerosis without high-grade obstruction with coronary disease insufficient to explain LV dysfunction. 3.Status post AICD implantation August 2008 with device upgrade and replacement with Bi-V (biventricular) device 2012, generator exchange March 2019, Medtronic D3 1 4 TR G 4.Improved LV systolic function , EF 50% July 06, 2020 5.Hypertension. 6.Hyperlipidemia. 7.Type 2 diabetes mellitus. 8.Moderate aortic stenosis. 9. Chronic kidney disease, stage IV+ Patient presents this admission with notable recent hospitalization July with congestive heart failure, ventricular arrhythmias. He now notes gradual increase in weight with increasing shortness of breath cough and hemoptysis. Weight by hospital up 5 to 10 kg Clinical evidence of biventricular heart failure on presentation with laboratory studies reflecting supratherapeutic INR, anemia, GFR less than 15 He denies fevers chills or unexplained infections. Has been compliant with medications. No dizziness/syncope or near syncope. No overt bleeding other than hemoptysis with cough No defibrillator activation Rhythm on telemetry atrial sensed ventricular paced Patient has initially responded to IV Bumex overnight Allergies Allergy/AdvReac Type Severity Reaction Status Date / Time No Known Allergies Allergy Verified 08/01/21 06:39 Home Medications Medication Instructions Recorded Confirmed Type allopurinol 300 mg tablet 300 mg PO QAM 04/22/19 10/03/21 History fenofibrate nanocrystallized 48 mg 48 mg PO QAM 04/22/19 10/03/21 History tablet hydralazine 50 mg tablet 50 mg PO BID 04/22/19 10/03/21 History insulin aspar prt-insulin aspart 90 unit SUBCUT QPM 04/22/19 10/03/21 History 100 unit/mL (70-30) subcutaneous soln (Novolog Mix 70-30 U-100 Insuln) insulin aspar prt-insulin aspart 100 unit SUBCUT QAM 04/22/19 10/03/21 History 100 unit/mL (70-30) subcutaneous soln (Novolog Mix 70-30 U-100 Insuln) levothyroxine 112 mcg tablet 112 mcg PO QAM 04/22/19 10/03/21 History metoprolol tartrate 50 mg tablet 50 mg PO BID 04/22/19 10/03/21 History cholecalciferol (vitamin D3) 25 1,000 unit PO QAM 05/31/19 10/03/21 History mcg (1,000 unit) capsule (Vitamin D3) omega-3 360 mg-dha 144 mg-epa 216 1 cap PO QAM 05/31/19 10/03/21 History mg-fish oil 1,200 mg capsule,del rel (Fish Oil) warfarin 1 mg tablet 2 mg PO DAILY tab 05/15/21 10/03/21 History warfarin 5 mg tablet 5 mg PO DAILY tab 05/15/21 10/03/21 History ascorbic acid (vitamin C) 500 mg 500 mg PO DAILY 08/01/21 10/03/21 History tablet (Vitamin C) amiodarone 200 mg tablet 200 mg PO BID #60 tab 08/15/21 10/03/21 Rx atorvastatin 10 mg tablet 10 mg PO QAM #30 tab 08/15/21 10/03/21 Rx isosorbide dinitrate 20 mg tablet 20 mg PO 0700,1200,1700 #90 tab 08/15/21 10/03/21 Rx torsemide 10 mg tablet 40 mg PO DAILY #30 tab 08/15/21 10/03/21 Rx Patient History Medical History Atrial fibrillation 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 Bilateral interstitial pneumonia hx CAD (coronary artery disease) Cardiac defibrillator in place follows with [facility] cardiology ([facility]) CHF (congestive heart failure) CKD (chronic kidney disease) stage 4, GFR 15-29 ml/min Heart disease Hx of colonic polyps Hyperlipidemia Hypertension Hypothyroidism ICD (implantable cardioverter-defibrillator) battery depletion Pt with BiV ICD at [facility]; for a generator change; discussed the procedure and potential risks with the patient which include but not limited to , arrhythmia, stroke, heart attack, bleeding and infection. consent obtained LBBB (left bundle branch block) Myocardial Infarction (~2007) reason for the cardio/defib. Nonischemic cardiomyopathy Palliative care encounter Postoperative hematoma hx PVD (peripheral vascular disease) T2DM (type 2 diabetes mellitus) Surgical History Biventricular ICD (implantable cardioverter-defibrillator) in place initially placed in 2007 secondary to nonischemic PTA and converted to a BiV in 02/2013 with recent generator exchange 04/19/19 History of colonoscopy History of left heart catheterization No obstructive coronary disease, 2007 Family History Father Stroke Mother Diabetes Social History Smoking Status: Former smoker Tobacco Type: Cigarettes Cigarettes Per Day: 1983; Second Hand Exposure: No; Do You Dip or Chew Tobacco: No; Hx Alcohol Use: No Hx Substance Use: No Preferred Language: Swedish Communication Ability: Effective Visual Impairment: Limited Hearing Ability: Normal Network Programmer Required: No Beliefs That Will Affect Care: None marital status: Current Living Situation: Alone Current Living Situation Comment: lives in house alone current occupational status: retired How many Children do You have: 2 How many Children do You have Comment: family fairly local and able to help with care Other Information That Helps Us Care for You: No Feels Safe at Home: Yes Safety Concerns: Feels Safe At This Time Diet Comment: stated he "watches sweet", but it's difficult Assistive Devices: CPAP and Prosthesis Physical Exam Constitutional: + ill appearing; no acute distress Eyes: PERRL, conjunctivae normal, anicteric sclerae ENMT: external ear and nose normal, oropharynx normal Neck: trachea midline, no thyromegaly Respiratory: Auscultation: + diminished lung sounds and + rales Cardiovascular: Rate/Rhythm: regular rate and regular rhythm (Ventricular paced) Heart Sounds: normal S1, normal S2 and + murmur (2/6 systolic ejection murmur no diastolic murmur); no gallop Palpation: normal PMI Vessels: + JVD and radial pulses present; no carotid bruit Extremities: + edema (2-3+ lower extremity edema left leg and right thigh) Gastrointestinal (Abdomen): Abdomen distended consistent with right ventricular heart failure Musculoskeletal: Extremities: + lower leg abnormality (Right BKA) Skin: no rashes, warm and dry Neurologic: PERRL, EOMI, accommodation nl, no face palsy, no dysarthria Psychiatric: A+Ox3, euthymic affect Results & Data ([facility]) Vital Signs (Past 12 Hours) Vital Signs Temp Pulse Pulse Pulse Resp BP Pulse Ox 10/04/21 07:13 36.5 C 64 21 111/63 94 10/04/21 03:32 36.9 C 66 25 H 137/71 97 10/04/21 02:50 77 23 89 L 10/04/21 01:00 36.7 C 67 26 H 126/68 90 10/03/21 23:46 71 27 H 93 10/03/21 22:00 36.5 C 78 32 H 129/74 95 Laboratory Results Laboratory Results - last 24 hr 10/03/21 10/03/21 10/03/21 16:55 16:55 16:55 WBC 9.92 RBC 2.66 L Hgb 7.9 L Hct 26.5 L MCV 99.6 MCH 29.7 MCHC 29.8 L RDW Std Deviation 68.1 H RDW Coeff of Nicolasa 18.9 H Plt Count 250 MPV 10.5 H Immature Gran % (Auto) 0.2 Neut % (Auto) 79.0 Lymph % (Auto) 8.9 Hudspeth % (Auto) 8.6 Eos % (Auto) 3.0 Baso % (Auto) 0.3 Reticulocyte % (Auto) Neut # (Auto) 7.84 H Lymph # (Auto) 0.88 L Hudspeth # (Auto) 0.85 H Eos # (Auto) 0.30 Baso # (Auto) 0.03 Reticulocyte # Immature Gran # (Auto) 0.02 Polychromasia 1+ Hypochromasia Present Immature Retic Fraction Retic Hgb Content PT 80.6 H INR 9.5 H* APTT 45.2 H* PTT Ratio 1.7 VBG pH VBG pCO2 VBG pO2 VBG HCO3 VBG O2 Saturation VBG Base Excess Barometric Pressure Sodium 139 Potassium 4.0 Chloride 108 H Carbon Dioxide 22 Anion Gap 9.0 BUN 64 H Creatinine 4.51 H* Est Cr Clr Drug Dosing 20.2 Est GFR ( Amer) 13.7 Est GFR (Non-Af Amer) 11.9 BUN/Creatinine Ratio 14.0 Glucose 238 H POC Glucose Estimat Average Glucose Hemoglobin A1c Calcium 8.9 Magnesium Iron Transferrin Transferrin % Sat Troponin I 0.027 NT-Pro-B Natriuret Pep 82401 H Lipase 220 Vitamin B12 Folate COVID-19 Eval Order SARS-CoV-2 (PCR) Hepatitis C Ab Screen Influenza Type A Ag Influenza Type B Ag 10/03/21 10/03/21 10/03/21 16:55 16:55 16:55 WBC RBC Hgb Hct MCV MCH MCHC RDW Std Deviation RDW Coeff of Nicolasa Plt Count MPV Immature Gran % (Auto) Neut % (Auto) Lymph % (Auto) Hudspeth % (Auto) Eos % (Auto) Baso % (Auto) Reticulocyte % (Auto) Neut # (Auto) Lymph # (Auto) Hudspeth # (Auto) Eos # (Auto) Baso # (Auto) Reticulocyte # Immature Gran # (Auto) Polychromasia Hypochromasia Immature Retic Fraction Retic Hgb Content PT INR APTT PTT Ratio VBG pH VBG pCO2 VBG pO2 VBG HCO3 VBG O2 Saturation VBG Base Excess Barometric Pressure Sodium Potassium Chloride Carbon Dioxide Anion Gap BUN Creatinine Est Cr Clr Drug Dosing Est GFR ( Amer) Est GFR (Non-Af Amer) BUN/Creatinine Ratio Glucose POC Glucose Estimat Average Glucose Hemoglobin A1c Calcium Magnesium Iron Transferrin Transferrin % Sat Troponin I NT-Pro-B Natriuret Pep Lipase Vitamin B12 Folate COVID-19 Eval Order Covid19 at [facility] SARS-CoV-2 (PCR) NEGATIVE Hepatitis C Ab Screen Influenza Type A Ag Neg for Influ A Influenza Type B Ag Neg for Influ B 10/03/21 10/03/21 10/03/21 16:55 17:26 21:52 WBC RBC Hgb Hct MCV MCH MCHC RDW Std Deviation RDW Coeff of Nicolasa Plt Count MPV Immature Gran % (Auto) Neut % (Auto) Lymph % (Auto) Hudspeth % (Auto) Eos % (Auto) Baso % (Auto) Reticulocyte % (Auto) Neut # (Auto) Lymph # (Auto) Hudspeth # (Auto) Eos # (Auto) Baso # (Auto) Reticulocyte # Immature Gran # (Auto) Polychromasia Hypochromasia Immature Retic Fraction Retic Hgb Content PT INR APTT PTT Ratio VBG pH 7.39 VBG pCO2 38 VBG pO2 30 VBG HCO3 23 VBG O2 Saturation < 60.0 VBG Base Excess -2.3 Barometric Pressure 732.6 Sodium Potassium Chloride Carbon Dioxide Anion Gap BUN Creatinine Est Cr Clr Drug Dosing Est GFR ( Amer) Est GFR (Non-Af Amer) BUN/Creatinine Ratio Glucose POC Glucose 137 H Estimat Average Glucose Hemoglobin A1c Calcium Magnesium 2.8 H Iron Transferrin Transferrin % Sat Troponin I NT-Pro-B Natriuret Pep Lipase Vitamin B12 Folate COVID-19 Eval Order SARS-CoV-2 (PCR) Hepatitis C Ab Screen Influenza Type A Ag Influenza Type B Ag 10/03/21 10/04/21 10/04/21 23:09 03:34 04:46 WBC 9.91 RBC 2.62 L Hgb 7.8 L Hct 25.9 L MCV 98.9 MCH 29.8 MCHC 30.1 L RDW Std Deviation 68.0 H RDW Coeff of Nicolasa 18.7 H Plt Count 263 MPV 10.1 Immature Gran % (Auto) 0.3 Neut % (Auto) 81.2 Lymph % (Auto) 9.1 Hudspeth % (Auto) 8.4 Eos % (Auto) 0.8 Baso % (Auto) 0.2 Reticulocyte % (Auto) 6.4 H Neut # (Auto) 8.05 H Lymph # (Auto) 0.90 L [place]udspeth # (Auto) 0.83 H Eos # (Auto) 0.08 Baso # (Auto) 0.02 Reticulocyte # 0.17 H Immature Gran # (Auto) 0.03 H Polychromasia 1+ Hypochromasia Present Immature Retic Fraction 17.5 H Retic Hgb Content 23.9 L PT INR APTT PTT Ratio VBG pH VBG pCO2 VBG pO2 VBG HCO3 VBG O2 Saturation VBG Base Excess Barometric Pressure Sodium Potassium Chloride Carbon Dioxide Anion Gap BUN Creatinine Est Cr Clr Drug Dosing Est GFR ( Amer) Est GFR (Non-Af Amer) BUN/Creatinine Ratio Glucose POC Glucose 135 H 112 H Estimat Average Glucose Hemoglobin A1c Calcium Magnesium Iron Transferrin Transferrin % Sat Troponin I NT-Pro-B Natriuret Pep Lipase Vitamin B12 Folate COVID-19 Eval Order SARS-CoV-2 (PCR) Hepatitis C Ab Screen Influenza Type A Ag Influenza Type B Ag 10/04/21 10/04/21 10/04/21 04:46 04:46 04:46 WBC RBC Hgb Hct MCV MCH MCHC RDW Std Deviation RDW Coeff of Nicolasa Plt Count MPV Immature Gran % (Auto) Neut % (Auto) Lymph % (Auto) Hudspeth % (Auto) Eos % (Auto) Baso % (Auto) Reticulocyte % (Auto) Neut # (Auto) Lymph # (Auto) Hudspeth # (Auto) Eos # (Auto) Baso # (Auto) Reticulocyte # Immature Gran # (Auto) Polychromasia Hypochromasia Immature Retic Fraction Retic Hgb Content PT 28.0 H INR 3.0 H APTT PTT Ratio VBG pH VBG pCO2 VBG pO2 VBG HCO3 VBG O2 Saturation VBG Base Excess Barometric Pressure Sodium 140 Potassium 3.9 Chloride 109 H Carbon Dioxide 23 Anion Gap 8.0 BUN 64 H Creatinine 4.48 H Est Cr Clr Drug Dosing 19.8 Est GFR ( Amer) 13.9 Est GFR (Non-Af Amer) 12.0 BUN/Creatinine Ratio 14.2 Glucose 89 POC Glucose Estimat Average Glucose 137 Hemoglobin A1c 6.4 H Calcium 8.9 Magnesium Iron 41 Transferrin 294 Transferrin % Sat 10 L Troponin I NT-Pro-B Natriuret Pep Lipase Vitamin B12 Folate COVID-19 Eval Order SARS-CoV-2 (PCR) Hepatitis C Ab Screen Influenza Type A Ag Influenza Type B Ag 10/04/21 10/04/21 10/04/21 04:46 04:46 06:16 WBC RBC Hgb Hct MCV MCH MCHC RDW Std Deviation RDW Coeff of Nicolasa Plt Count MPV Immature Gran % (Auto) Neut % (Auto) Lymph % (Auto) Hudsp[place] % (Auto) Eos % (Auto) Baso % (Auto) Reticulocyte % (Auto) Neut # (Auto) Lymph # (Auto) Hudspeth # (Auto) Eos # (Auto) Baso # (Auto) Reticulocyte # Immature Gran # (Auto) Polychromasia Hypochromasia Immature Retic Fraction Retic Hgb Content PT INR APTT PTT Ratio VBG pH VBG pCO2 VBG pO2 VBG HCO3 VBG O2 Saturation VBG Base Excess Barometric Pressure Sodium Potassium Chloride Carbon Dioxide Anion Gap BUN Creatinine Est Cr Clr Drug Dosing Est GFR ( Amer) Est GFR (Non-Af Amer) BUN/Creatinine Ratio Glucose POC Glucose 79 Estimat Average Glucose Hemoglobin A1c Calcium Magnesium Iron Transferrin Transferrin % Sat Troponin I NT-Pro-B Natriuret Pep Lipase Vitamin B12 361 Folate 17.80 COVID-19 Eval Order SARS-CoV-2 (PCR) Hepatitis C Ab Screen Pending Influenza Type A Ag Influenza Type B Ag 10/04/21 07:06 WBC RBC Hgb Hct MCV MCH MCHC RDW Std Deviation RDW Coeff of Nicolasa Plt Count MPV Immature Gran % (Auto) Neut % (Auto) Lymph % (Auto) [place] % (Auto) Eos % (Auto) Baso % (Auto) Reticulocyte % (Auto) Neut # (Auto) Lymph # (Auto) [place]udsp[place] # (Auto) Eos # (Auto) Baso # (Auto) Reticulocyte # Immature Gran # (Auto) Polychromasia Hypochromasia Immature Retic Fraction Retic Hgb Content PT INR APTT PTT Ratio VBG pH VBG pCO2 VBG pO2 VBG HCO3 VBG O2 Saturation VBG Base Excess Barometric Pressure Sodium Potassium Chloride Carbon Dioxide Anion Gap BUN Creatinine Est Cr Clr Drug Dosing Est GFR ( Amer) Est GFR (Non-Af Amer) BUN/Creatinine Ratio Glucose POC Glucose 123 H Estimat Average Glucose Hemoglobin A1c Calcium Magnesium Iron Transferrin Transferrin % Sat Troponin I NT-Pro-B Natriuret Pep Lipase Vitamin B12 Folate COVID-19 Eval Order SARS-CoV-2 (PCR) Hepatitis C Ab Screen Influenza Type A Ag Influenza Type B Ag
--- NOTE | 2021-10-04 12:21 | Billing Data ---
Date of Service October 03, 2021 Coding Level of Care Code 74742 Initial Inpt Care Lvl 3
--- NOTE | 2021-10-04 13:36 | Electrocardiogram Report ---
Test Reason : Blood Pressure : / mmHG Vent. Rate : 083 BPM Atrial Rate : 083 BPM P-R Int : 184 ms QRS Dur : 158 ms QT Int : 466 ms P-R-T Axes : 077 -62 130 degrees QTc Int : 547 ms Poor data quality, interpretation may be adversely affected Atrial-sensed ventricular-paced rhythm Abnormal ECG When compared with ECG of 11-AUG-2021 10:21, Premature ventricular complexes are no longer Present Vent. rate has increased BY 3 BPM Confirmed by Cong Lenoe [id number]) on 10/04/2021 1:36:00 PM Referred By: REFERRED SELF Confirmed By:Cong Leone
--- NOTE | 2021-10-04 14:38 | Pharmacy Report ---
Pharmacy Glycemic Short Note 2 - Date of Service October 04, 2021 - Glycemic Short BSG Results (Last 24 hours): 10/03/21 10/03/21 10/03/21 16:55 21:52 23:09 Glucose 238 H POC Glucose 137 H 135 H 10/04/21 10/04/21 10/04/21 03:34 04:46 06:16 Glucose 89 POC Glucose 112 H 79 10/04/21 10/04/21 07:06 11:47 Glucose POC Glucose 123 H 129 H OUTPATIENT ANTIDIABETIC REGIMEN: * Novolog mix 70/30 100 units SQ qam, 90 units SQ qpm ASSESSMENT: * Patient presenting with acute CHF exacerbation * Patient previously known to the glycemic service. Will use past data to help guide insulin regimen * Patient is tolerating a diet. PLAN FOR INPATIENT GLYCEMIC CONTROL: * Hold outpatient oral diabetes medications * Basal insulin * NPH 22 units SQ BID * Bolus insulin * NovoLog per scale ACHS or Q6hrs while NPO * Goal Range: Low 110 mg/dL - High 140 mg/dL * Correction Factor: 20 mg/dL/unit * Nutritional / Prandial insulin per carb ratio of 1 unit per 6 grams CHO consumed PLAN FOR DISCHARGE: *
--- NOTE | 2021-10-04 15:48 | Hospitalist Progress Note ---
Date of Service October 04, 2021 Assessment & Plan (1) Acute exacerbation of CHF (congestive heart failure): Plan: 75yo Male PMH CHF DM2 CKD IV afib on warfarin, CAD HTN HLD ICD placement chronic venous stasis here for SOB. Acute on chronic HFrEF continue Bumex 2mg IV BID, good response, watch Cr educated patient on the need to avoid sodium, weight daily, fluid restriction brought up the idea of dialysis, refuses to consider this stable on 6L NC negative fluid balance today check BMP tomorrow appreciate cardiology consult CKD IV - Cr is 4.4, was 4.5 on admission -nephrology consult placed -continue bumex 2mg IV in ED K is stable Supratherapeutic INR -PT 80.6 INR 9.5 (was taking too much at home, was not checking with PCP) INR down to 3.0 after vitamin K in the ED continue to hold Warfarin Anemia -Hbg 7.8 (normal 9-10) -possibly 2/2 to fluid overload status -nasrin, trend cbc DM2 -glycemic consult placed -voice pathologist consulted -07/2021 A1c 9.3 monitor for hypoglycemia HTN -continue hydralzine 50mg BID -continue metoprolol tartrate 50mg BID -torsemide on hold -received bumex 2mg IV in ED Atrial Fibrillation -EKG = atrial sensed ventricular paced rhythm -hold warfarin given INR 3.0 -patient has ICD and pacer -continue amiodarone 200mg BID -continue metoprolol tartrate 50mg BID -cardiology consulted Hx Ventricular Fibrillation -monitor on tele -cont amiodarone Venous stasis of LLE -order compression stockings, leg elevation -DVT unlikely given his home warfarin HLD -continue fenofibrate 48mg -continue atorvastatin 10mg Gout -continue allopurinol 300mg Hypothyroidism -continue levothyroxine 112 mcg -12/2020 TSH 3.51 FENa: heart healthy carb consistent low sodium fluid restriction 1500ml Code Status: conditional, DNR, ok for intubation in a respiratory arrest DVT PPX: warfarin (on hold due to elevated INR), VANDANA stocking PT/OT: ordered Kendra Cintron Do PGY 1, FCM (2) CKD (chronic kidney disease) stage 4, GFR 15-29 ml/min: (3) T2DM (type 2 diabetes mellitus): (4) Hypertension: (5) Atrial fibrillation: (6) Venous stasis ulcer of left lower extremity: (7) Hypothyroidism: (8) Supratherapeutic INR: (9) Anemia: Admission and Anticipated Discharge Date Admission Date: October 03, 2021 Subjective patient says he is feeling better, breathing easier, responding well to Bumex 2mg IV BID reviewed the chart d/w Dr. Simmons, appreciate his input patient admits he was eating a lot of salt at home, lots of canned ravioli, discussed that the salt is terrible for heart failure and CKD he still has edema in his left legs c/o some scant hemoptysis INR down to 3 from 9, Cr is 4.4 Review of Systems Review of Systems: All systems reviewed & are unremarkable except as noted in Subjective Respiratory: + cough, + dyspnea, + dyspnea on exertion and + hemoptysis Cardiovascular: + dyspnea, + orthopnea and + edema Physical Exam Physical Exam: General: well developed, well nourished, no acute distress, obese male, comfortable Neck: supple, trachea midline, normal thyroid Lungs: crackles in bases, normal respiratory effort, no accessory muscle use, no distress Heart: regular S1 and S2, no murmur, peripheral pulses normal, capillary refill normal, edema in legs and abdomen Abdomen: soft, NT, ND, + BS, no hepatomegaly, normal to percussion Extremities: right leg BKA, no cyanosis, no petechiae, strength is 5/5 bilaterally Neuro: awake, cooperative, moves all extremities, no focal motor deficits, CN II-XII intact, sensation in extremities intact, normal speech Skin: warm, dry, no rash, normal turgor Psych: Awake, alert oriented x 3, euthymic affect Results & Data Results & Data ([facility]) Vital Signs (Past 12 Hours) Vital Signs Temp Pulse Pulse Resp BP Pulse Ox 10/04/21 13:36 36.7 C 67 28 H 119/72 95 10/04/21 13:20 96 10/04/21 07:13 36.5 C 64 21 111/63 94 Laboratory Results Laboratory Results - last 24 hr 10/03/21 10/03/21 10/03/21 16:55 16:55 16:55 WBC 9.92 RBC 2.66 L Hgb 7.9 L Hct 26.5 L MCV 99.6 MCH 29.7 MCHC 29.8 L RDW Std Deviation 68.1 H RDW Coeff of Nicolasa 18.9 H Plt Count 250 MPV 10.5 H Immature Gran % (Auto) 0.2 Neut % (Auto) 79.0 Lymph % (Auto) 8.9 Glynn % (Auto) 8.6 Eos % (Auto) 3.0 Baso % (Auto) 0.3 Reticulocyte % (Auto) Neut # (Auto) 7.84 H Lymph # (Auto) 0.88 L Glynn # (Auto) 0.85 H Eos # (Auto) 0.30 Baso # (Auto) 0.03 Reticulocyte # Immature Gran # (Auto) 0.02 Polychromasia 1+ Hypochromasia Present Immature Retic Fraction Retic Hgb Content PT 80.6 H INR 9.5 H* APTT 45.2 H* PTT Ratio 1.7 VBG pH VBG pCO2 VBG pO2 VBG HCO3 VBG O2 Saturation VBG Base Excess Barometric Pressure Sodium 139 Potassium 4.0 Chloride 108 H Carbon Dioxide 22 Anion Gap 9.0 BUN 64 H Creatinine 4.51 H* Est Cr Clr Drug Dosing 20.2 Est GFR ( Amer) 13.7 Est GFR (Non-Af Amer) 11.9 BUN/Creatinine Ratio 14.0 Glucose 238 H POC Glucose Estimat Average Glucose Hemoglobin A1c Calcium 8.9 Magnesium Iron Transferrin Transferrin % Sat Troponin I 0.027 NT-Pro-B Natriuret Pep 01334 H Lipase 220 Vitamin B12 Folate COVID-19 Eval Order SARS-CoV-2 (PCR) Hepatitis C Ab Screen Influenza Type A Ag Influenza Type B Ag 10/03/21 10/03/21 10/03/21 16:55 16:55 16:55 WBC RBC Hgb Hct MCV MCH MCHC RDW Std Deviation RDW Coeff of Nicolasa Plt Count MPV Immature Gran % (Auto) Neut % (Auto) Lymph % (Auto) Glynn % (Auto) Eos % (Auto) Baso % (Auto) Reticulocyte % (Auto) Neut # (Auto) Lymph # (Auto) Glynn # (Auto) Eos # (Auto) Baso # (Auto) Reticulocyte # Immature Gran # (Auto) Polychromasia Hypochromasia Immature Retic Fraction Retic Hgb Content PT INR APTT PTT Ratio VBG pH VBG pCO2 VBG pO2 VBG HCO3 VBG O2 Saturation VBG Base Excess Barometric Pressure Sodium Potassium Chloride Carbon Dioxide Anion Gap BUN Creatinine Est Cr Clr Drug Dosing Est GFR ( Amer) Est GFR (Non-Af Amer) BUN/Creatinine Ratio Glucose POC Glucose Estimat Average Glucose Hemoglobin A1c Calcium Magnesium Iron Transferrin Transferrin % Sat Troponin I NT-Pro-B Natriuret Pep Lipase Vitamin B12 Folate COVID-19 Eval Order Covid19 at [facility] SARS-CoV-2 (PCR) NEGATIVE Hepatitis C Ab Screen Influenza Type A Ag Neg for Influ A Influenza Type B Ag Neg for Influ B 10/03/21 10/03/21 10/03/21 16:55 17:26 21:52 WBC RBC Hgb Hct MCV MCH MCHC RDW Std Deviation RDW Coeff of Nicolasa Plt Count MPV Immature Gran % (Auto) Neut % (Auto) Lymph % (Auto) Glynn % (Auto) Eos % (Auto) Baso % (Auto) Reticulocyte % (Auto) Neut # (Auto) Lymph # (Auto) Glynn # (Auto) Eos # (Auto) Baso # (Auto) Reticulocyte # Immature Gran # (Auto) Polychromasia Hypochromasia Immature Retic Fraction Retic Hgb Content PT INR APTT PTT Ratio VBG pH 7.39 VBG pCO2 38 VBG pO2 30 VBG HCO3 23 VBG O2 Saturation < 60.0 VBG Base Excess -2.3 Barometric Pressure 732.6 Sodium Potassium Chloride Carbon Dioxide Anion Gap BUN Creatinine Est Cr Clr Drug Dosing Est GFR ( Amer) Est GFR (Non-Af Amer) BUN/Creatinine Ratio Glucose POC Glucose 137 H Estimat Average Glucose Hemoglobin A1c Calcium Magnesium 2.8 H Iron Transferrin Transferrin % Sat Troponin I NT-Pro-B Natriuret Pep Lipase Vitamin B12 Folate COVID-19 Eval Order SARS-CoV-2 (PCR) Hepatitis C Ab Screen Influenza Type A Ag Influenza Type B Ag 10/03/21 10/04/21 10/04/21 23:09 03:34 04:46 WBC 9.91 RBC 2.62 L Hgb 7.8 L Hct 25.9 L MCV 98.9 MCH 29.8 MCHC 30.1 L RDW Std Deviation 68.0 H RDW Coeff of Nicolasa 18.7 H Plt Count 263 MPV 10.1 Immature Gran % (Auto) 0.3 Neut % (Auto) 81.2 Lymph % (Auto) 9.1 Glynn % (Auto) 8.4 Eos % (Auto) 0.8 Baso % (Auto) 0.2 Reticulocyte % (Auto) 6.4 H Neut # (Auto) 8.05 H Lymph # (Auto) 0.90 L Glynn # (Auto) 0.83 H Eos # (Auto) 0.08 Baso # (Auto) 0.02 Reticulocyte # 0.17 H Immature Gran # (Auto) 0.03 H Polychromasia 1+ Hypochromasia Present Immature Retic Fraction 17.5 H Retic Hgb Content 23.9 L PT INR APTT PTT Ratio VBG pH VBG pCO2 VBG pO2 VBG HCO3 VBG O2 Saturation VBG Base Excess Barometric Pressure Sodium Potassium Chloride Carbon Dioxide Anion Gap BUN Creatinine Est Cr Clr Drug Dosing Est GFR ( Amer) Est GFR (Non-Af Amer) BUN/Creatinine Ratio Glucose POC Glucose 135 H 112 H Estimat Average Glucose Hemoglobin A1c Calcium Magnesium Iron Transferrin Transferrin % Sat Troponin I NT-Pro-B Natriuret Pep Lipase Vitamin B12 Folate COVID-19 Eval Order SARS-CoV-2 (PCR) Hepatitis C Ab Screen Influenza Type A Ag Influenza Type B Ag 10/04/21 10/04/21 10/04/21 04:46 04:46 04:46 WBC RBC Hgb Hct MCV MCH MCHC RDW Std Deviation RDW Coeff of Nicolasa Plt Count MPV Immature Gran % (Auto) Neut % (Auto) Lymph % (Auto) Glynn % (Auto) Eos % (Auto) Baso % (Auto) Reticulocyte % (Auto) Neut # (Auto) Lymph # (Auto) Glynn # (Auto) Eos # (Auto) Baso # (Auto) Reticulocyte # Immature Gran # (Auto) Polychromasia Hypochromasia Immature Retic Fraction Retic Hgb Content PT 28.0 H INR 3.0 H APTT PTT Ratio VBG pH VBG pCO2 VBG pO2 VBG HCO3 VBG O2 Saturation VBG Base Excess Barometric Pressure Sodium 140 Potassium 3.9 Chloride 109 H Carbon Dioxide 23 Anion Gap 8.0 BUN 64 H Creatinine 4.48 H Est Cr Clr Drug Dosing 19.8 Est GFR ( Amer) 13.9 Est GFR (Non-Af Amer) 12.0 BUN/Creatinine Ratio 14.2 Glucose 89 POC Glucose Estimat Average Glucose 137 Hemoglobin A1c 6.4 H Calcium 8.9 Magnesium Iron 41 Transferrin 294 Transferrin % Sat 10 L Troponin I NT-Pro-B Natriuret Pep Lipase Vitamin B12 Folate COVID-19 Eval Order SARS-CoV-2 (PCR) Hepatitis C Ab Screen Influenza Type A Ag Influenza Type B Ag 10/04/21 10/04/21 10/04/21 04:46 04:46 06:16 WBC RBC Hgb Hct MCV MCH MCHC RDW Std Deviation RDW Coeff of Nicolasa Plt Count MPV Immature Gran % (Auto) Neut % (Auto) Lymph % (Auto) Glynn % (Auto) Eos % (Auto) Baso % (Auto) Reticulocyte % (Auto) Neut # (Auto) Lymph # (Auto) Glynn # (Auto) Eos # (Auto) Baso # (Auto) Reticulocyte # Immature Gran # (Auto) Polychromasia Hypochromasia Immature Retic Fraction Retic Hgb Content PT INR APTT PTT Ratio VBG pH VBG pCO2 VBG pO2 VBG HCO3 VBG O2 Saturation VBG Base Excess Barometric Pressure Sodium Potassium Chloride Carbon Dioxide Anion Gap BUN Creatinine Est Cr Clr Drug Dosing Est GFR ( Amer) Est GFR (Non-Af Amer) BUN/Creatinine Ratio Glucose POC Glucose 79 Estimat Average Glucose Hemoglobin A1c Calcium Magnesium Iron Transferrin Transferrin % Sat Troponin I NT-Pro-B Natriuret Pep Lipase Vitamin B12 361 Folate 17.80 COVID-19 Eval Order SARS-CoV-2 (PCR) Hepatitis C Ab Screen Neg Influenza Type A Ag Influenza Type B Ag 10/04/21 10/04/21 07:06 11:47 WBC RBC Hgb Hct MCV MCH MCHC RDW Std Deviation RDW Coeff of Nicolasa Plt Count MPV Immature Gran % (Auto) Neut % (Auto) Lymph % (Auto) Glynn % (Auto) Eos % (Auto) Baso % (Auto) Reticulocyte % (Auto) Neut # (Auto) Lymph # (Auto) Glynn # (Auto) Eos # (Auto) Baso # (Auto) Reticulocyte # Immature Gran # (Auto) Polychromasia Hypochromasia Immature Retic Fraction Retic Hgb Content PT INR APTT PTT Ratio VBG pH VBG pCO2 VBG pO2 VBG HCO3 VBG O2 Saturation VBG Base Excess Barometric Pressure Sodium Potassium Chloride Carbon Dioxide Anion Gap BUN Creatinine Est Cr Clr Drug Dosing Est GFR ( Amer) Est GFR (Non-Af Amer) BUN/Creatinine Ratio Glucose POC Glucose 123 H 129 H Estimat Average Glucose Hemoglobin A1c Calcium Magnesium Iron Transferrin Transferrin % Sat Troponin I NT-Pro-B Natriuret Pep Lipase Vitamin B12 Folate COVID-19 Eval Order SARS-CoV-2 (PCR) Hepatitis C Ab Screen Influenza Type A Ag Influenza Type B Ag Medications Administered Current Inpatient Medications Acetaminophen (Acetaminophen 325 Mg Tab) 650 mg PO Q4H PRN PRN Reason: Pain or Fever Stop: 11/02/21 21:20 Allopurinol (Allopurinol 300 Mg Tab) 300 mg PO QAM [facility] Stop: 11/03/21 08:59 Last Admin: 10/04/21 08:06 Dose: 300 mg Documented by: Amiodarone HCl (Amiodarone 200 Mg Tab) 200 mg PO BID [facility] Stop: 11/02/21 21:20 Last Admin: 10/04/21 08:07 Dose: 200 mg Documented by: Ascorbic Acid (Ascorbic Acid 500 Mg Tab) 500 mg PO DAILY [facility] Stop: 11/03/21 08:59 Last Admin: 10/04/21 08:07 Dose: 500 mg Documented by: Atorvastatin Calcium (Atorvastatin 10 Mg Tab) 10 mg PO QAM [facility] Stop: 11/03/21 08:59 Last Admin: 10/04/21 08:08 Dose: 10 mg Documented by: Dextrose (Dextrose 50% 50 Ml Syringe) 25 - 50 ml IV UD PRN; Protocol PRN Reason: Hypoglycemia Protocol Stop: 11/02/21 21:59 Fenofibrate (Fenofibrate Nanocrystallized 48 Mg Tablet) 48 mg PO QAM [facility] Stop: 11/03/21 08:59 Last Admin: 10/04/21 08:09 Dose: 48 mg Documented by: Fish Oil ([place]-3 (Purified Fish Oil) 1 Gm Cap) 1 gm PO QAM [facility] Stop: 11/03/21 08:59 Last Admin: 10/04/21 08:09 Dose: 1 gm Documented by: Glucagon (Glucagon For Inj 1 Mg Vial) 1 mg SQ UD PRN; Protocol PRN Reason: Hypoglycemia Protocol Stop: 11/02/21 21:59 Glucose (Glucose 40% Gel 15 Gm Tube) 15 - 30 gm PO UD PRN; Protocol PRN Reason: Hypoglycemia Protocol Stop: 11/02/21 21:59 Glucose (Glucose 10 Tabs/Tube) 4 - 8 tabs PO UD PRN; Protocol PRN Reason: Hypoglycemia Protocol Stop: 11/02/21 21:59 Hydralazine HCl (Hydralazine Tab 50 Mg Tab) 50 mg PO BID [facility] Stop: 11/02/21 21:20 Last Admin: 10/04/21 08:09 Dose: 50 mg Documented by: Bumetanide 2 mg/ Syringe 8 mls @ 4 mls/min IV BID@0900,1700 [facility] Stop: 11/03/21 08:59 Last Admin: 10/04/21 08:15 Dose: 4 mls/min Documented by: Insulin Aspart (Insulin Aspart 100 Units/Ml 3 Ml Pen) 0 units SC ACHS [facility]; Protocol Stop: 11/02/21 21:59 Last Admin: 10/04/21 11:59 Dose: 5 units Documented by: Insulin Human NPH (Insulin Human Nph) 22 units SC BID [facility]; Protocol Stop: 11/03/21 08:59 Last Admin: 10/04/21 09:21 Dose: 22 units Documented by: Isosorbide Dinitrate (Isosorbide Dinitrate 20 Mg Tab) 20 mg PO 0700,1200,1700 [facility] Stop: 11/03/21 06:59 Last Admin: 10/04/21 12:49 Dose: 20 mg Documented by: Levothyroxine Sodium (Levothyroxine Sodium 112 Mcg Tablet) 112 mcg PO DAILYBB [facility] Stop: 11/03/21 06:29 Last Admin: 10/04/21 05:14 Dose: 112 mcg Documented by: Metoprolol Tartrate (Metoprolol Tartrate 50 Mg Tab) 50 mg PO BID [facility] Stop: 11/02/21 21:20 Last Admin: 10/04/21 08:10 Dose: 50 mg Documented by: Miscellaneous (Carbohydrates For Hypoglycemia ) 15 - 30 gm PO UD PRN PRN Reason: Hypoglycemia Treatment Stop: 11/02/21 21:59 Miscellaneous Information (Pharmacy Glycemic Mgmt Consult) 1 ea N/A UD PRN PRN Reason: Consult Stop: 11/02/21 21:20 Ondansetron HCl (Ondansetron Inj 2 Mg/Ml 2 Ml Vial) 4 mg IV Q6H PRN PRN Reason: Nausea Stop: 11/02/21 21:20 Polyethylene Glycol (Polyethylene (Miralax) 17 Gm Pack) 17 gm PO DAILY PRN PRN Reason: Constipation Stop: 11/02/21 21:20 Vitamin D (Cholecalciferol 1,000 Units 25 Mcg Tab) 1,000 units PO QAM [facility] Stop: 11/03/21 08:59 Last Admin: 10/04/21 08:08 Dose: 1,000 units Documented by: PG Care Time/CCT Total # of Minutes Spent Total Time Spent with Patient: Total time spent is greater than 50% in coordination of care (as documented) at patient's floor/unit and/or counseling patient: Coding Level of Care Code 15014 Subseq Hosp Care Lvl 3 Diagnoses Acute exacerbation of CHF (congestive heart failure) I50.9 Heart failure type: unspecified CKD (chronic kidney disease) stage 4, GFR 15-29 ml/min N18.4 T2DM (type 2 diabetes mellitus) E11.9 Hypertension I10 Hypertension type: essential hypertension Atrial fibrillation I48.91 Atrial fibrillation type: unspecified Venous stasis ulcer of left lower extremity I83.029; L97.929 Hypothyroidism E03.9 Hypothyroidism type: acquired Supratherapeutic INR R79.1 Anemia D64.9 (1) Acute exacerbation of CHF (congestive heart failure) Heart failure type: unspecified Qualified Code(s): I50.9 - Heart failure, unspecified (2) Atrial fibrillation Atrial fibrillation type: unspecified Qualified Code(s): I48.91 - Unspecified atrial fibrillation (3) Hypothyroidism Hypothyroidism type: acquired Qualified Code(s): E03.9 - Hypothyroidism, unspecified (4) Hypertension Hypertension type: essential hypertension Qualified Code(s): I10 - Essential (primary) hypertension
[2021-10-05 05:01] LABS: Hematocrit (blood only) 24.6 % (42-52); Hemoglobin 7.3 g/dL (14.0-18.0); Mean Corpuscular Hemoglobin 29.3 pg (25-34); Mean Corpuscular Hgb Conc 29.7 g/dL (32-36); Mean Corpuscular Volume 98.8 fL (80-100); Mean Platelet Volume 9.8 fL (7.4-10.4); Platelet Count 232 K/uL (130-400); RDW Coefficient of Variation 18.5 % (11.5-14.5); RDW Standard Deviation 66.8 fL (36.4-46.3); Red Blood Count 2.49 M/uL (4.7-6.1); White Blood Count 7.53 K/uL (4.8-10.8)
[2021-10-05 05:09] LABS: INR 1.8 (0.9-1.1); Prothrombin Time 17.8 Seconds (9.0-12.0)
[2021-10-05 05:53] LABS: BUN Creatinine Ratio 14.7 (10-20); Calcium 7.8 mg/dl (8.5-10.1); Creatinine Clr Calc Pharmacy 17.7 ml/min; Est GFR (African American) 12.1 ml/min; Est GFR (Non-African American) 10.4 ml/min; Magnesium 2.7 mg/dl (1.8-2.4); Potassium 3.9 mmol/L (3.5-5.1)
[2021-10-05] MEDS: LEVOTHYROXINE SODIUM 112 MCG TABLET PO SCH (06:01)
[2021-10-05] MEDS: ISOSORBIDE DINITRATE 20 MG TAB PO SCH ×3 (06:02→16:36)
[2021-10-05] MEDS: AMIODARONE 200 MG TAB PO SCH ×2 (08:31→20:20)
[2021-10-05] MEDS: allopurinoL 300 MG TAB PO SCH (08:31)
[2021-10-05] MEDS: ASCORBIC ACID 500 MG TAB PO SCH (08:32)
[2021-10-05] MEDS: CHOLECALCIFEROL 1,000 UNITS 25 MCG TAB PO SCH (08:32)
[2021-10-05] MEDS: ATORVASTATIN 10 MG TAB PO SCH (08:32)
[2021-10-05] MEDS: FENOFIBRATE NANOCRYSTALLIZED 48 MG TABLET PO SCH (08:33)
[2021-10-05] MEDS: OMEGA-3 (PURIFIED FISH OIL) 1 GM CAP PO SCH (08:33)
[2021-10-05] MEDS: hydrALAZINE TAB 50 MG TAB PO SCH ×2 (08:33→20:20)
[2021-10-05] MEDS: METOPROLOL TARTRATE 50 MG TAB PO SCH ×2 (08:34→20:20)
[2021-10-05] MEDS: INSULIN HUMAN NPH SC SCH ×2 (08:35→20:19)
[2021-10-05] MEDS: INSULIN ASPART 100 UNITS/ML 3 ML PEN SC SCH ×4 (08:41→20:18)
[2021-10-05] MEDS: BUMETANIDE 2 MG in SYRINGE 0 ML IV SCH ×2 (09:17→16:35)
--- NOTE | 2021-10-05 10:24 | Cardiology Progress Note ---
Date of Service October 05, 2021 Assessment & Plan (1) Acute on chronic congestive heart failure: (2) Nonischemic cardiomyopathy: (3) Biventricular ICD (implantable cardioverter-defibrillator) in place: (4) CKD (chronic kidney disease) stage 4, GFR 15-29 ml/min: (5) Anemia: (6) Supratherapeutic INR: Plan: 75-year-old male with issues as noted with nonischemic cardiomyopathy with moderate left systolic dysfunction (echo July 2021) EF 40-45%, mild to mod erate aortic stenosis and chronic systolic and diastolic heart failure superimposed on chronic renal insufficiency. Patient presents with acutely decompensated congestive heart failure right greater than left marked lower extremity edema and abdominal distention as well as mild pulmonary edema. INR supratherapeutic with associated symptoms of hemoptysis with cough, anemia No evidence of arrhythmias with patient remaining in sinus and ventricular paced rhythm Patient more comfortable this morning with moderate diuresis. Slight decline in renal function but will still require additional diuresis Recommendations: Continue IV diuretics with nephrology assistance. May need anemia addressed Admission and Anticipated Discharge Date Admission Date: October 03, 2021 Subjective Patient was seen and examined, chart, medications, telemetry reviewed. Patient has manifested diuresis overnight to a modest degree but feels more comfortable. Leg edema decreasing. Notes some abdominal bloating and constipation issues. Mild renal decline with diuresis. Review of Systems Review of Systems: All systems reviewed & are unremarkable except as noted in Subjective Physical Exam Constitutional: no acute distress Eyes: PERRL, conjunctivae normal, anicteric sclerae ENMT: external ear and nose normal, oropharynx normal Neck: trachea midline, no thyromegaly Respiratory: Auscultation: + diminished lung sounds Cardiovascular: Rate/Rhythm: regular rate and regular rhythm (Ventricular paced) Heart Sounds: normal S1, normal S2 and + murmur (2/6 systolic ejection murmur no diastolic murmur); no gallop Palpation: normal PMI Vessels: + JVD and radial pulses present; no carotid bruit Extremities: + edema (2-3+ lower extremity edema left leg and right thigh) Musculoskeletal: Extremities: + lower leg abnormality (Right BKA) Skin: no rashes, warm and dry Neurologic: PERRL, EOMI, accommodation nl, no face palsy, no dysarthria Psychiatric: A+Ox3, euthymic affect Results & Data ([facility]) Vital Signs (Past 12 Hours) Vital Signs Temp Pulse Pulse Resp BP Pulse Ox 10/05/21 08:00 36.6 C 64 20 142/78 H 93 10/05/21 03:00 63 21 135/64 97 10/05/21 00:00 67 10/04/21 23:00 71 28 H 114/64 92 Laboratory Results Laboratory Results - last 24 hr 10/04/21 10/04/21 10/04/21 04:46 11:47 16:20 WBC RBC Hgb Hct MCV MCH MCHC RDW Std Deviation RDW Coeff of Nicolasa Plt Count MPV PT INR Sodium Potassium Chloride Carbon Dioxide Anion Gap BUN Creatinine Est Cr Clr Drug Dosing Est GFR ( Amer) Est GFR (Non-Af Amer) BUN/Creatinine Ratio Glucose POC Glucose 129 H 115 H Calcium Magnesium Hepatitis C Ab Screen Neg 10/04/21 10/05/21 10/05/21 21:44 04:36 04:36 WBC 7.53 RBC 2.49 L Hgb 7.3 L Hct 24.6 L MCV 98.8 MCH 29.3 MCHC 29.7 L RDW Std Deviation 66.8 H RDW Coeff of Nicolasa 18.5 H Plt Count 232 MPV 9.8 PT 17.8 H INR 1.8 H Sodium Potassium Chloride Carbon Dioxide Anion Gap BUN Creatinine Est Cr Clr Drug Dosing Est GFR ( Amer) Est GFR (Non-Af Amer) BUN/Creatinine Ratio Glucose POC Glucose 150 H Calcium Magnesium Hepatitis C Ab Screen 10/05/21 10/05/21 04:36 08:37 WBC RBC Hgb Hct MCV MCH MCHC RDW Std Deviation RDW Coeff of Nicolasa Plt Count MPV PT INR Sodium 138 Potassium 3.9 Chloride 107 Carbon Dioxide 23 Anion Gap 8.0 BUN 74 H Creatinine 5.01 H* D Est Cr Clr Drug Dosing 17.7 Est GFR ( Amer) 12.1 Est GFR (Non-Af Amer) 10.4 BUN/Creatinine Ratio 14.7 Glucose 131 H POC Glucose 121 H Calcium 7.8 L Magnesium 2.7 H Hepatitis C Ab Screen
--- NOTE | 2021-10-05 10:47 | Nephrology Consultation ---
Date of Consultation October 05, 2021 Assessment & Plan (1) Acute kidney injury: -Secondary to fluid overload he is known to be CKD stage 4/5, with his serum creatinine in early to mid four s, and has been resistant to the idea of dialysis in the past. Though his numbers have climbed he looks comfortable, urine output has also improved. He continues to have good going edema and still is in respiratory distress. I would continue him on the same dose of Bumex today. I would rather see him to be comfortable, rather than a good creatinine number. If his oxygen requirements does not come down, add metolazone 5 mg and assess response. Think we are reaching to a point where he would need a decision about dialysis or comfort care. He will be diuretic resistant very soon. At the moment she seems to be very distended to the idea of dialysis. We will continue to monitor (2) Acute on chronic congestive heart failure: (3) Chronic kidney insufficiency: History of Present Illness Reason for Consultation: Acute kidney injury on the baseline of CKD stage IV Attending Physician: Edin Mora, DO History of Present Illness This is a 75-year-old gentleman with known CKD stage IV with baseline creatinine has been around early to mid fours, he is known to have extensive cardiopulmonary problems had admissions in the past with fluid overload requiring IV dialysis and diuretic team adjustments. Past medical includes coronary artery disease, history of LA, heart failure with slightly low ejection fraction of 45%, biventricular defibrillator and pacemaker, type 2 diabetes on insulin longstanding, hyperlipidemia, chronic kidney disease stage IV, approaching stage V(has been reluctant to the idea of dialysis in the past) hypothyroidism, chronic anticoagulation with Coumadin for AFib, aortic stenosis, obesity. He was again admitted with fluid overload, and was started on 2 mg IV twice daily Bumex. Urine output has been good. He appears to be more comfortable but still in distress. Pedal edema remains the same. Creatinine however jumped to 5.0(on admission this was for 4- 4.4 ) he is on 6 L of oxygen which has not changed since admission blood pressure has improved, Allergies Allergy/AdvReac Type Severity Reaction Status Date / Time No Known Allergies Allergy Verified 08/01/21 06:39 Home Medications Medication Instructions Recorded Confirmed Type allopurinol 300 mg tablet 300 mg PO QAM 04/22/19 10/03/21 History fenofibrate nanocrystallized 48 mg 48 mg PO QAM 04/22/19 10/03/21 History tablet hydralazine 50 mg tablet 50 mg PO BID 04/22/19 10/03/21 History insulin aspar prt-insulin aspart 90 unit SUBCUT QPM 04/22/19 10/03/21 History 100 unit/mL (70-30) subcutaneous soln (Novolog Mix 70-30 U-100 Insuln) insulin aspar prt-insulin aspart 100 unit SUBCUT QAM 04/22/19 10/03/21 History 100 unit/mL (70-30) subcutaneous soln (Novolog Mix 70-30 U-100 Insuln) levothyroxine 112 mcg tablet 112 mcg PO QAM 04/22/19 10/03/21 History metoprolol tartrate 50 mg tablet 50 mg PO BID 04/22/19 10/03/21 History cholecalciferol (vitamin D3) 25 1,000 unit PO QAM 05/31/19 10/03/21 History mcg (1,000 unit) capsule (Vitamin D3) omega-3 360 mg-dha 144 mg-epa 216 1 cap PO QAM 05/31/19 10/03/21 History mg-fish oil 1,200 mg capsule,del rel (Fish Oil) warfarin 1 mg tablet 2 mg PO DAILY tab 05/15/21 10/03/21 History warfarin 5 mg tablet 5 mg PO DAILY tab 05/15/21 10/03/21 History ascorbic acid (vitamin C) 500 mg 500 mg PO DAILY 08/01/21 10/03/21 History tablet (Vitamin C) amiodarone 200 mg tablet 200 mg PO BID #60 tab 08/15/21 10/03/21 Rx atorvastatin 10 mg tablet 10 mg PO QAM #30 tab 08/15/21 10/03/21 Rx isosorbide dinitrate 20 mg tablet 20 mg PO 0700,1200,1700 #90 tab 08/15/21 10/03/21 Rx torsemide 10 mg tablet 40 mg PO DAILY #30 tab 08/15/21 10/03/21 Rx Patient History Medical History Atrial fibrillation 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 Bilateral interstitial pneumonia hx CAD (coronary artery disease) Cardiac defibrillator in place follows with [facility] cardiology ([facility]) CHF (congestive heart failure) CKD (chronic kidney disease) stage 4, GFR 15-29 ml/min Heart disease Hx of colonic polyps Hyperlipidemia Hypertension Hypothyroidism ICD (implantable cardioverter-defibrillator) battery depletion Pt with BiV ICD at [facility]; for a generator change; discussed the procedure and potential risks with the patient which include but not limited to , arrhythmia, stroke, heart attack, bleeding and infection. consent obtained LBBB (left bundle branch block) Myocardial Infarction (~2007) reason for the cardio/defib. Nonischemic cardiomyopathy Palliative care encounter Postoperative hematoma hx PVD (peripheral vascular disease) T2DM (type 2 diabetes mellitus) Surgical History Biventricular ICD (implantable cardioverter-defibrillator) in place initially placed in 2007 secondary to nonischemic [employer] and converted to a BiV in 02/2013 with recent generator exchange 04/19/19 History of colonoscopy History of left heart catheterization No obstructive coronary disease, 2007 Family History Father Stroke Mother Diabetes Social History Smoking Status: Former smoker Tobacco Type: Cigarettes Cigarettes Per Day: 1984; Second Hand Exposure: No; Do You Dip or Chew Tobacco: No; Hx Alcohol Use: No Hx Substance Use: No Preferred Language: Bengali Communication Ability: Effective Visual Impairment: Limited Hearing Ability: Normal [place] Required: No Beliefs That Will Affect Care: None marital status: Single Current Living Situation: Alone Current Living Situation Comment: lives in house alone current occupational status: retired How many Children do You have: 2 How many Children do You have Comment: family fairly local and able to help with care Other Information That Helps Us Care for You: No Feels Safe at Home: Yes Safety Concerns: Feels Safe At This Time Diet Comment: stated he "watches sweet", but it's difficult Assistive Devices: None Review of Systems Review of Systems: Bilateral pedal edema. In mild respiratory distress. Physical Exam Physical Exam: GENERAL: Elderly white male. On 4 6 L of oxygen HEENT: Mucous membrane is moist. NECK: Supple. Cannot assess JVD secondary to short, obese neck. CHEST: Bilateral decreased breath sounds, occasional crackles at the bases. CARDIOVASCULAR: S1 and S2, irregular. Soft systolic murmur heard. ABDOMEN: Soft, nontender, obese. EXTREMITIES: Shows right BKA and left has 2+ edema, but is bandaged. NEUROLOGIC: Awake, alert and oriented. Normal speech. Results & Data ([facility]) Vital Signs (Past 12 Hours) Vital Signs Temp Pulse Pulse Resp BP Pulse Ox 10/05/21 08:00 36.6 C 64 20 142/78 H 93 10/05/21 03:00 63 21 135/64 97 10/05/21 00:00 67 10/04/21 23:00 71 28 H 114/64 92 Laboratory Results 10/05/21 04:36 10/05/21 04:36 (1) Chronic kidney insufficiency Chronic kidney disease stage: stage 3 (moderate) Chronic kidney disease stage 3 subtype: stage 3b (GFR 30-44) Qualified Code(s): N18.32 - Chronic kidney disease, stage 3b
[2021-10-05] MEDS ORDERED: WARFARIN SOD 5 MG TAB PO SCH (16:00)
--- NOTE | 2021-10-05 16:29 | Hospitalist Progress Note ---
Date of Service October 05, 2021 Assessment & Plan (1) Acute exacerbation of CHF (congestive heart failure): Plan: 75yo Male PMH CHF DM2 CKD IV afib on warfarin, CAD HTN HLD ICD placement chronic venous stasis here for SOB. Acute on chronic HFrEF continue Bumex 2mg IV BID, Cr going up might need a dose of Zaroxolyn educated patient on the need to avoid sodium, weight daily, fluid restriction brought up the idea of dialysis, refuses to consider this stable on 6L NC negative fluid balance today check BMP tomorrow appreciate cardiology consult and nephrology consult CKD IV - Cr up to 5.0 from 4.5 yesterday -nephrology consult: patient needs to think about HD, approaching time when diuretics will not work -continue bumex 2mg IV in ED K is stable Supratherapeutic INR -PTT 80.6 INR 9.5 (was taking too much at home, was not checking with PCP) INR down to 1.8, resume Coumadin 5mg today Anemia -Hbg 7.3 from 7.8 (normal 9-10) -possibly 2/2 to fluid overload status -no melena, continue to monitor DM2 -glycemic consult placed -sprue knocker consulted -07/2021 A1c 9.3 monitor for hypoglycemia, no episodes HTN -continue hydralzine 50mg BID -continue metoprolol tartrate 50mg BID -torsemide on hold -received bumex 2mg IV in ED Atrial Fibrillation -EKG = atrial sensed ventricular paced rhythm -INR 1.8, resume Coumadin -patient has ICD and pacer -continue amiodarone 200mg BID -continue metoprolol tartrate 50mg BID -cardiology consulted Hx Ventricular Fibrillation -monitor on tele -cont amiodarone Venous stasis of LLE -order compression stockings, leg elevation -DVT unlikely given his home warfarin HLD -continue fenofibrate 48mg -continue atorvastatin 10mg Gout -continue allopurinol 300mg Hypothyroidism -continue levothyroxine 112 mcg -12/2020 TSH 3.51 - Constipation: Miralax BID FENa: heart healthy carb consistent low sodium fluid restriction 1500ml Code Status: conditional, DNR, ok for intubation in a respiratory arrest DVT PPX: INR 1.8 PT/OT: ordered (2) CKD (chronic kidney disease) stage 4, GFR 15-29 ml/min: (3) T2DM (type 2 diabetes mellitus): (4) Hypertension: (5) Atrial fibrillation: (6) Venous stasis ulcer of left lower extremity: (7) Hypothyroidism: (8) Supratherapeutic INR: (9) Anemia: Admission and Anticipated Discharge Date Admission Date: October 03, 2021 Subjective patient continues to diurese, but has a lot of edema, still on 6L, still short of breath c/o constipation, has tried to move bowels a few times today appreciate note from Dr. Simmons appreciate note from nephrology, not as concerned about Cr as concerned about breathing did discuss with patient that he is approaching time when diuretics will fail, will either start HD or will change to palliative care he said he still is against HD I told him we will honor his wishes, but HD may be the only way to keep him alive he is eating well, no chest pain, no fever Review of Systems Review of Systems: All systems reviewed & are unremarkable except as noted in Subjective Physical Exam Physical Exam: General: well developed, well nourished, no acute distress, obese male, comfortable Neck: supple, trachea midline, normal thyroid Lungs: crackles in bases, normal respiratory effort, no accessory muscle use, no distress Heart: regular S1 and S2, no murmur, peripheral pulses normal, capillary refill normal, 2+ pitting edema in legs and abdomen Abdomen: soft, NT, ND, + BS, no hepatomegaly, normal to percussion Extremities: right leg BKA, no cyanosis, no petechiae, strength is 5/5 bilaterally Neuro: awake, cooperative, moves all extremities, no focal motor deficits, CN II-XII intact, sensation in extremities intact, normal speech Skin: warm, dry, no rash, normal turgor Psych: Awake, alert oriented x 3, euthymic affect Results & Data Results & Data ([facility]) Vital Signs (Past 12 Hours) Vital Signs Temp Pulse Pulse Resp BP Pulse Ox 10/05/21 12:15 36.8 C 66 25 H 124/59 L 94 10/05/21 08:00 36.6 C 64 20 142/78 H 93 10/05/21 06:00 67 Laboratory Results Laboratory Results - last 24 hr 10/04/21 10/05/21 10/05/21 21:44 04:36 04:36 WBC 7.53 RBC 2.49 L Hgb 7.3 L Hct 24.6 L MCV 98.8 MCH 29.3 MCHC 29.7 L RDW Std Deviation 66.8 H RDW Coeff of Nicolasa 18.5 H Plt Count 232 MPV 9.8 PT 17.8 H INR 1.8 H Sodium Potassium Chloride Carbon Dioxide Anion Gap BUN Creatinine Est Cr Clr Drug Dosing Est GFR ( Amer) Est GFR (Non-Af Amer) BUN/Creatinine Ratio Glucose POC Glucose 150 H Calcium Magnesium 10/05/21 10/05/21 10/05/21 04:36 08:37 11:32 WBC RBC Hgb Hct MCV MCH MCHC RDW Std Deviation RDW Coeff of Nicolasa Plt Count MPV PT INR Sodium 138 Potassium 3.9 Chloride 107 Carbon Dioxide 23 Anion Gap 8.0 BUN 74 H Creatinine 5.01 H* D Est Cr Clr Drug Dosing 17.7 Est GFR ( Amer) 12.1 Est GFR (Non-Af Amer) 10.4 BUN/Creatinine Ratio 14.7 Glucose 131 H POC Glucose 121 H 130 H Calcium 7.8 L Magnesium 2.7 H Medications Administered Current Inpatient Medications Acetaminophen (Acetaminophen 325 Mg Tab) 650 mg PO Q4H PRN PRN Reason: Pain or Fever Stop: 11/02/21 21:20 Last Admin: 10/04/21 16:58 Dose: 650 mg Documented by: Allopurinol (Allopurinol 300 Mg Tab) 300 mg PO QAM [facility] Stop: 11/03/21 08:59 Last Admin: 10/05/21 08:31 Dose: 300 mg Documented by: Amiodarone HCl (Amiodarone 200 Mg Tab) 200 mg PO BID [facility] Stop: 11/02/21 21:20 Last Admin: 10/05/21 08:31 Dose: 200 mg Documented by: Ascorbic Acid (Ascorbic Acid 500 Mg Tab) 500 mg PO DAILY RISHI Stop: 11/03/21 08:59 Last Admin: 10/05/21 08:32 Dose: 500 mg Documented by: Atorvastatin Calcium (Atorvastatin 10 Mg Tab) 10 mg PO QAM [facility] Stop: 11/03/21 08:59 Last Admin: 10/05/21 08:32 Dose: 10 mg Documented by: Dextrose (Dextrose 50% 50 Ml Syringe) 25 - 50 ml IV UD PRN; Protocol PRN Reason: Hypoglycemia Protocol Stop: 11/02/21 21:59 Fenofibrate (Fenofibrate Nanocrystallized 48 Mg Tablet) 48 mg PO QAM [facility] Stop: 11/03/21 08:59 Last Admin: 10/05/21 08:33 Dose: 48 mg Documented by: Fish Oil ([place]-3 (Purified Fish Oil) 1 Gm Cap) 1 gm PO QAM [facility] Stop: 11/03/21 08:59 Last Admin: 10/05/21 08:33 Dose: 1 gm Documented by: Glucagon (Glucagon For Inj 1 Mg Vial) 1 mg SQ UD PRN; Protocol PRN Reason: Hypoglycemia Protocol Stop: 11/02/21 21:59 Glucose (Glucose 40% Gel 15 Gm Tube) 15 - 30 gm PO UD PRN; Protocol PRN Reason: Hypoglycemia Protocol Stop: 11/02/21 21:59 Glucose (Glucose 10 Tabs/Tube) 4 - 8 tabs PO UD PRN; Protocol PRN Reason: Hypoglycemia Protocol Stop: 11/02/21 21:59 Hydralazine HCl (Hydralazine Tab 50 Mg Tab) 50 mg PO BID [facility] Stop: 11/02/21 21:20 Last Admin: 10/05/21 08:33 Dose: 50 mg Documented by: Bumetanide 2 mg/ Syringe 8 mls @ 4 mls/min IV BID@0900,1700 [facility] Stop: 11/03/21 08:59 Last Admin: 10/05/21 09:17 Dose: 4 mls/min Documented by: Insulin Aspart (Insulin Aspart 100 Units/Ml 3 Ml Pen) 0 units SC ACHS [facility]; Protocol Stop: 11/02/21 21:59 Last Admin: 10/05/21 12:07 Dose: 10 units Documented by: Insulin Human NPH (Insulin Human Nph) 22 units SC BID [facility]; Protocol Stop: 11/03/21 08:59 Last Admin: 10/05/21 08:35 Dose: 22 units Documented by: Isosorbide Dinitrate (Isosorbide Dinitrate 20 Mg Tab) 20 mg PO 0700,1200,1700 [facility] Stop: 11/03/21 06:59 Last Admin: 10/05/21 12:09 Dose: 20 mg Documented by: Levothyroxine Sodium (Levothyroxine Sodium 112 Mcg Tablet) 112 mcg PO DAILYBB [facility] Stop: 11/03/21 06:29 Last Admin: 10/05/21 06:01 Dose: 112 mcg Documented by: Metoprolol Tartrate (Metoprolol Tartrate 50 Mg Tab) 50 mg PO BID [facility] Stop: 11/02/21 21:20 Last Admin: 10/05/21 08:34 Dose: 50 mg Documented by: Miscellaneous (Carbohydrates For Hypoglycemia ) 15 - 30 gm PO UD PRN PRN Reason: Hypoglycemia Treatment Stop: 11/02/21 21:59 Miscellaneous Information (Pharmacy Glycemic Mgmt Consult) 1 ea N/A UD PRN PRN Reason: Consult Stop: 11/02/21 21:20 Ondansetron HCl (Ondansetron Inj 2 Mg/Ml 2 Ml Vial) 4 mg IV Q6H PRN PRN Reason: Nausea Stop: 11/02/21 21:20 Polyethylene Glycol (Polyethylene (Miralax) 17 Gm Pack) 17 gm PO DAILY PRN PRN Reason: Constipation Stop: 11/02/21 21:20 Vitamin D (Cholecalciferol 1,000 Units 25 Mcg Tab) 1,000 units PO QAM [facility] Stop: 11/03/21 08:59 Last Admin: 10/05/21 08:32 Dose: 1,000 units Documented by: Warfarin Sodium (Warfarin Sod 5 Mg Tab) 5 mg PO DAILY@1600 [facility] Stop: 11/04/21 15:59 PG Care Time/CCT Total # of Minutes Spent Total Time Spent with Patient: Total time spent is greater than 50% in coordination of care (as documented) at patient's floor/unit and/or counseling patient: Coding Level of Care Code 09546 Subseq Hosp Care Lvl 3 Diagnoses Acute exacerbation of CHF (congestive heart failure) I50.9 Heart failure type: unspecified CKD (chronic kidney disease) stage 4, GFR 15-29 ml/min N18.4 T2DM (type 2 diabetes mellitus) E11.9 Hypertension I10 Hypertension type: essential hypertension Atrial fibrillation I48.91 Atrial fibrillation type: unspecified Venous stasis ulcer of left lower extremity I83.029; L97.929 Hypothyroidism E03.9 Hypothyroidism type: acquired Supratherapeutic INR R79.1 Anemia D64.9 (1) Acute exacerbation of CHF (congestive heart failure) Heart failure type: unspecified Qualified Code(s): I50.9 - Heart failure, unspecified (2) Atrial fibrillation Atrial fibrillation type: unspecified Qualified Code(s): I48.91 - Unspecified atrial fibrillation (3) Hypothyroidism Hypothyroidism type: acquired Qualified Code(s): E03.9 - Hypothyroidism, unspecified (4) Hypertension Hypertension type: essential hypertension Qualified Code(s): I10 - Essential (primary) hypertension
[2021-10-05] MEDS: POLYETHYLENE (MIRALAX) 17 GM PACK PO SCH (21:17)
[2021-10-06] MEDS: LEVOTHYROXINE SODIUM 112 MCG TABLET PO SCH (05:41)
[2021-10-06 05:50] LABS: Hematocrit (blood only) 25.4 % (42-52); Hemoglobin 7.6 g/dL (14.0-18.0); Mean Corpuscular Hemoglobin 29.3 pg (25-34); Mean Corpuscular Hgb Conc 29.9 g/dL (32-36); Mean Corpuscular Volume 98.1 fL (80-100); Mean Platelet Volume 10.4 fL (7.4-10.4); Platelet Count 266 K/uL (130-400); RDW Coefficient of Variation 18.5 % (11.5-14.5); Red Blood Count 2.59 M/uL (4.7-6.1); White Blood Count 9.02 K/uL (4.8-10.8)
[2021-10-06 06:00] LABS: INR 2.4 (0.9-1.1); Prothrombin Time 22.3 Seconds (9.0-12.0)
[2021-10-06] MEDS: ISOSORBIDE DINITRATE 20 MG TAB PO SCH ×3 (06:17→17:19)
[2021-10-06 06:29] LABS: BUN Creatinine Ratio 16.4 (10-20); Calcium 8.3 mg/dl (8.5-10.1); Creatinine Clr Calc Pharmacy 17.8 ml/min; Est GFR (African American) 12.3 ml/min; Est GFR (Non-African American) 10.7 ml/min
[2021-10-06] MEDS: AMIODARONE 200 MG TAB PO SCH ×2 (08:10→21:13)
[2021-10-06] MEDS: ATORVASTATIN 10 MG TAB PO SCH (08:10)
[2021-10-06] MEDS: allopurinoL 300 MG TAB PO SCH (08:10)
[2021-10-06] MEDS: ASCORBIC ACID 500 MG TAB PO SCH (08:10)
[2021-10-06] MEDS: FENOFIBRATE NANOCRYSTALLIZED 48 MG TABLET PO SCH (08:11)
[2021-10-06] MEDS: OMEGA-3 (PURIFIED FISH OIL) 1 GM CAP PO SCH (08:11)
[2021-10-06] MEDS: CHOLECALCIFEROL 1,000 UNITS 25 MCG TAB PO SCH (08:11)
[2021-10-06] MEDS: METOPROLOL TARTRATE 50 MG TAB PO SCH ×2 (08:15→21:13)
[2021-10-06] MEDS: INSULIN HUMAN NPH SC SCH ×2 (08:15→21:14)
[2021-10-06] MEDS: hydrALAZINE TAB 50 MG TAB PO SCH ×2 (08:15→21:13)
[2021-10-06] MEDS: POLYETHYLENE (MIRALAX) 17 GM PACK PO SCH ×2 (08:16→21:14)
[2021-10-06] MEDS: BUMETANIDE 2 MG in SYRINGE 0 ML IV SCH ×2 (08:17→17:19)
[2021-10-06] MEDS: INSULIN ASPART 100 UNITS/ML 3 ML PEN SC SCH ×4 (08:17→21:14)
--- NOTE | 2021-10-06 08:58 | Pharmacy Report ---
Pharmacy Glycemic Short Note 2 - Date of Service October 06, 2021 - Glycemic Short BSG Results (Last 24 hours): 10/05/21 10/05/21 10/05/21 11:32 16:40 20:14 Glucose POC Glucose 130 H 148 H 147 H 10/06/21 10/06/21 04:45 08:14 Glucose 106 H POC Glucose 150 H OUTPATIENT ANTIDIABETIC REGIMEN: * Novolog mix 70/30 100 units SQ qam, 90 units SQ qpm ASSESSMENT: 10/06 * Pt has received 57 units of insulin over the past 24hrs * 44 units of basal with NPH * 13 units of bolus with NovoLog * BSGs [id number]/150 mg/dl * All BSGs in goal range with current orders. GLU this M trended downwards from yesterday (131 --> 106 mg/dl) will slightly decrease basal insulin to prevent LOW tomorrow. Also, regimen is heavily weighted towards basal insulin. Will try to attempt to redistribute in a more 50:50% distribution of basal:prandial. 10/04 * Patient presenting with acute CHF exacerbation * Patient previously known to the glycemic service. Will use past data to help guide insulin regimen * Patient is tolerating a diet. PLAN FOR INPATIENT GLYCEMIC CONTROL: * Hold outpatient oral diabetes medications * Basal insulin * NPH 20 units SQ BID * Bolus insulin * NovoLog per scale ACHS or Q6hrs while NPO * Goal Range: Low 110 mg/dL - High 140 mg/dL * Correction Factor: 20 mg/dL/unit * Nutritional / Prandial insulin per carb ratio of 1 unit per 6 grams CHO consumed PLAN FOR DISCHARGE: * A1c is unreliable secondary to CKD and altered RBC turnover rate. If patient is experiencing hypoglycemia as an outpatient recommend decreasing outpatient insulin doses as outpatient doses are significantly higher than inpatient dosing.
--- NOTE | 2021-10-06 10:15 | Nephrology Progress Note ---
Date of Service October 06, 2021 Assessment & Plan (1) Acute kidney injury: Plan: -Secondary to fluid overload he is known to be CKD stage 4/5, with his serum creatinine in early to mid fours, and has been resistant to the idea of dialysis in the past. His numbers continue to climb ( better today), but he looks he comfortable, urine output has also improved. I would continue him on the same dose of Bumex today. No change today Think we are reaching to a point where he would need a decision about dialysis or comfort care. He will be diuretic resistant very soon. At the moment she seems to be very resistant to the idea of dialysis. Agree palliative care consult if he is not willing to Dialysis. We will continue to monitor (2) Acute on chronic congestive heart failure: (3) Chronic kidney insufficiency: Admission and Anticipated Discharge Date Admission Date: October 03, 2021 Subjective patient continues to diurese, appears more comfortable today. Review of Systems Review of Systems: Bilateral pedal edema. In mild respiratory distress. Physical Exam Physical Exam: GENERAL: Elderly white male. On 4 6 L of oxygen HEENT: Mucous membrane is moist. NECK: Supple. Cannot assess JVD secondary to short, obese neck. CHEST: Bilateral decreased breath sounds, occasional crackles at the bases. CARDIOVASCULAR: S1 and S2, irregular. Soft systolic murmur heard. ABDOMEN: Soft, nontender, obese. EXTREMITIES: Shows right BKA and left has 2+ edema, but is bandaged. NEUROLOGIC: Awake, alert and oriented. Normal speech. Results & Data ([facility]) Vital Signs (Past 12 Hours) Vital Signs Temp Pulse Pulse Pulse Resp BP Pulse Ox 10/06/21 08:00 36.8 C 70 18 111/51 L 93 10/06/21 05:59 61 10/06/21 03:21 36.8 C 62 25 H 128/62 98 10/05/21 23:44 36.5 C 66 22 118/59 L 94 Laboratory Results 10/06/21 04:45 10/06/21 04:45 (1) Chronic kidney insufficiency Chronic kidney disease stage: stage 3 (moderate) Chronic kidney disease stage 3 subtype: stage 3b (GFR 30-44) Qualified Code(s): N18.32 - Chronic kidney disease, stage 3b
--- NOTE | 2021-10-06 12:30 | Cardiology Progress Note ---
Date of Service October 06, 2021 Assessment & Plan (1) Acute on chronic congestive heart failure: (2) Nonischemic cardiomyopathy: (3) Biventricular ICD (implantable cardioverter-defibrillator) in place: (4) CKD (chronic kidney disease) stage 4, GFR 15-29 ml/min: (5) Anemia: (6) Supratherapeutic INR: Plan: 75-year-old male with issues as noted with nonischemic cardiomyopathy with moderate left systolic dysfunction (echo July 2021) EF 40-45%, mild to mod erate aortic stenosis and chronic systolic and diastolic heart failure superimposed on chronic renal insufficiency. Patient presents with acutely decompensated congestive heart failure right greater than left marked lower extremity edema and abdominal distention as well as mild pulmonary edema. INR supratherapeutic with associated symptoms of hemoptysis with cough, anemia No evidence of arrhythmias with patient remaining in sinus and ventricular paced rhythm P Recommendations: Continue IV diuretics as pernephrology May need anemia addressed Admission and Anticipated Discharge Date Admission Date: October 03, 2021 Subjective Patient was seen and examined, chart, medications, telemetry reviewed. Continues to manifest slow diuresis with improved lower extremity edema. Renal function without acute deterioration. Still with oxygen demands Review of Systems Review of Systems: All systems reviewed & are unremarkable except as noted in Subjective Physical Exam Constitutional: no acute distress Eyes: PERRL, conjunctivae normal, anicteric sclerae ENMT: external ear and nose normal, oropharynx normal Neck: trachea midline, no thyromegaly Respiratory: Auscultation: + diminished lung sounds Cardiovascular: Rate/Rhythm: regular rate and regular rhythm (Ventricular paced) Heart Sounds: normal S1, normal S2 and + murmur (2/6 systolic ejection murmur no diastolic murmur); no gallop Palpation: normal PMI Vessels: + JVD and radial pulses present; no carotid bruit Extremities: + edema (2-3+ lower extremity edema left leg and right thigh) Musculoskeletal: Extremities: + lower leg abnormality (Right BKA) Skin: no rashes, warm and dry Neurologic: PERRL, EOMI, accommodation nl, no face palsy, no dysarthria Psychiatric: A+Ox3, euthymic affect Results & Data ([facility]) Vital Signs (Past 12 Hours) Vital Signs Temp Pulse Pulse Pulse Resp BP Pulse Ox 10/06/21 10:15 61 10/06/21 08:00 36.8 C 70 18 111/51 L 93 10/06/21 05:59 61 10/06/21 03:21 36.8 C 62 25 H 128/62 98 Laboratory Results Laboratory Results - last 24 hr 10/05/21 10/05/21 10/06/21 16:40 20:14 04:45 WBC RBC Hgb Hct MCV MCH MCHC RDW Std Deviation RDW Coeff of Nicolasa Plt Count MPV PT 22.3 H INR 2.4 H Sodium Potassium Chloride Carbon Dioxide Anion Gap BUN Creatinine Est Cr Clr Drug Dosing Est GFR ( Amer) Est GFR (Non-Af Amer) BUN/Creatinine Ratio Glucose POC Glucose 148 H 147 H Calcium 10/06/21 10/06/21 10/06/21 04:45 04:45 08:14 WBC 9.02 RBC 2.59 L Hgb 7.6 L Hct 25.4 L MCV 98.1 MCH 29.3 MCHC 29.9 L RDW Std Deviation 66.0 H RDW Coeff of Nicolasa 18.5 H Plt Count 266 MPV 10.4 PT INR Sodium 138 Potassium 4.0 Chloride 106 Carbon Dioxide 23 Anion Gap 9.0 BUN 81 H Creatinine 4.93 H* Est Cr Clr Drug Dosing 17.8 Est GFR ( Amer) 12.3 Est GFR (Non-Af Amer) 10.7 BUN/Creatinine Ratio 16.4 Glucose 106 H POC Glucose 150 H Calcium 8.3 L
--- NOTE | 2021-10-06 14:26 | Hospitalist Progress Note ---
Date of Service October 06, 2021 Assessment & Plan (1) Acute exacerbation of CHF (congestive heart failure): Plan: 75yo Male PMH CHF DM2 CKD IV afib on warfarin, CAD HTN HLD ICD placement chronic venous stasis here for SOB. Acute on chronic HFrEF continue Bumex 2mg IV BID, Cr down a little at 4.9 from 5.0 educated patient on the need to avoid sodium, weight daily, fluid restriction brought up the idea of dialysis, refuses to consider this stable on 6L NC, can likely titrate today negative fluid balance of a little over a liter check BMP tomorrow appreciate cardiology consult and nephrology consult CKD IV - Cr essentially unchanged, it is 4.9 from 5.0 -nephrology consult: patient needs to think about HD, approaching time when diuretics will not work -continue bumex 2mg IV in ED K is stable he said he would not want HD, "that is no way to live, my sister had it and she hated it" I will consult palliative to see patient, explained he will need hospice when his kidneys do not respond, which could be soon Supratherapeutic INR -INR 9.5 on admission (was taking too much at home, was not checking with PCP) INR 2.4 from 1.8 after resuming Coumadin 5mg daily reduce Coumadin to 3mg daily check INR Anemia -Hbg 7.6, has not really changed in 3 days -possibly 2/2 to fluid overload status -no melena, continue to monitor - would not transfuse as he is already volume overloaded, BP stable DM2 -glycemic consult placed -learning design specialist consulted -07/2021 A1c 9.3 monitor for hypoglycemia, no episodes HTN -continue hydralzine 50mg BID -continue metoprolol tartrate 50mg BID -torsemide on hold -received bumex 2mg IV in ED Atrial Fibrillation -EKG = atrial sensed ventricular paced rhythm -INR 2.4, Coumadin 3mg daily -patient has ICD and pacer -continue amiodarone 200mg BID -continue metoprolol tartrate 50mg BID -cardiology consulted Hx Ventricular Fibrillation -monitor on tele -cont amiodarone Venous stasis of LLE -order compression stockings, leg elevation -DVT unlikely given his home warfarin HLD -continue fenofibrate 48mg -continue atorvastatin 10mg Gout -continue allopurinol 300mg Hypothyroidism -continue levothyroxine 112 mcg -12/2020 TSH 3.51 - Constipation: Miralax BID FENa: heart healthy carb consistent low sodium fluid restriction 1500ml Code Status: conditional, DNR, ok for intubation in a respiratory arrest DVT PPX: INR 2.4 PT/OT: ordered (2) CKD (chronic kidney disease) stage 4, GFR 15-29 ml/min: (3) T2DM (type 2 diabetes mellitus): (4) Hypertension: (5) Atrial fibrillation: (6) Venous stasis ulcer of left lower extremity: (7) Hypothyroidism: (8) Supratherapeutic INR: (9) Anemia: Admission and Anticipated Discharge Date Admission Date: October 03, 2021 Subjective remains on 6L, will try to titrate down he is negative over a liter, still has a lot of fluid to give appreciate cardiology and nephrology notes reviewed labs, Cr is 4.9 I discussed very real possibility of needing HD soon he says that he would never want that, "you need to go 3 times a week for 4 hours" "my sister did that, she was miserable, chose to stop" I explained that we should get palliative on board to discuss, so that these things have been planned before his kidneys shut down he understands he has some mild constipation, making his epigastric abdomen hurt eating okay, breathing better, no chest pain, no fever Review of Systems Review of Systems: All systems reviewed & are unremarkable except as noted in Subjective Physical Exam Physical Exam: General: well developed, well nourished, no acute distress, obese male, comfortable Neck: supple, trachea midline, normal thyroid Lungs: crackles in bases, normal respiratory effort, no accessory muscle use, no distress Heart: regular S1 and S2, no murmur, peripheral pulses normal, capillary refill normal, 2+ pitting edema in legs and abdomen Abdomen: soft, NT, ND, + BS, no hepatomegaly, normal to percussion Extremities: right leg BKA, no cyanosis, no petechiae, strength is 5/5 bilateral ly Neuro: awake, cooperative, moves all extremities, no focal motor deficits, CN II-XII intact, sensation in extremities intact, normal speech Skin: warm, dry, no rash, normal turgor Psych: Awake, alert oriented x 3, euthymic affect Results & Data Results & Data ([facility]) Vital Signs (Past 12 Hours) Vital Signs Temp Pulse Pulse Pulse Resp BP Pulse Ox 10/06/21 12:39 36.8 C 63 16 139/62 91 10/06/21 10:15 61 10/06/21 08:00 36.8 C 70 18 111/51 L 93 10/06/21 05:59 61 10/06/21 03:21 36.8 C 62 25 H 128/62 98 Laboratory Results Laboratory Results - last 24 hr 10/05/21 10/05/21 10/06/21 16:40 20:14 04:45 WBC RBC Hgb Hct MCV MCH MCHC RDW Std Deviation RDW Coeff of Nicolasa Plt Count MPV PT 22.3 H INR 2.4 H Sodium Potassium Chloride Carbon Dioxide Anion Gap BUN Creatinine Est Cr Clr Drug Dosing Est GFR ( Amer) Est GFR (Non-Af Amer) BUN/Creatinine Ratio Glucose POC Glucose 148 H 147 H Calcium 10/06/21 10/06/21 10/06/21 04:45 04:45 08:14 WBC 9.02 RBC 2.59 L Hgb 7.6 L Hct 25.4 L MCV 98.1 MCH 29.3 MCHC 29.9 L RDW Std Deviation 66.0 H RDW Coeff of Nicolasa 18.5 H Plt Count 266 MPV 10.4 PT INR Sodium 138 Potassium 4.0 Chloride 106 Carbon Dioxide 23 Anion Gap 9.0 BUN 81 H Creatinine 4.93 H* Est Cr Clr Drug Dosing 17.8 Est GFR ( Amer) 12.3 Est GFR (Non-Af Amer) 10.7 BUN/Creatinine Ratio 16.4 Glucose 106 H POC Glucose 150 H Calcium 8.3 L Medications Administered Current Inpatient Medications Acetaminophen (Acetaminophen 325 Mg Tab) 650 mg PO Q4H PRN PRN Reason: Pain or Fever Stop: 11/02/21 21:20 Last Admin: 10/04/21 16:58 Dose: 650 mg Documented by: Allopurinol (Allopurinol 300 Mg Tab) 300 mg PO QAM [facility] Stop: 11/03/21 08:59 Last Admin: 10/06/21 08:10 Dose: 300 mg Documented by: Amiodarone HCl (Amiodarone 200 Mg Tab) 200 mg PO BID [facility] Stop: 11/02/21 21:20 Last Admin: 10/06/21 08:10 Dose: 200 mg Documented by: Ascorbic Acid (Ascorbic Acid 500 Mg Tab) 500 mg PO DAILY [facility] Stop: 11/03/21 08:59 Last Admin: 10/06/21 08:10 Dose: 500 mg Documented by: Atorvastatin Calcium (Atorvastatin 10 Mg Tab) 10 mg PO QAM [facility] Stop: 11/03/21 08:59 Last Admin: 10/06/21 08:10 Dose: 10 mg Documented by: Dextrose (Dextrose 50% 50 Ml Syringe) 25 - 50 ml IV UD PRN; Protocol PRN Reason: Hypoglycemia Protocol Stop: 11/02/21 21:59 Fenofibrate (Fenofibrate Nanocrystallized 48 Mg Tablet) [facility] Stop: 11/03/21 08:59 Last Admin: 10/06/21 08:11 Dose: 48 mg Documented by: Fish Oil ([place]-3 (Purified Fish Oil) 1 Gm Cap) 1 gm PO QAM [facility] Stop: 11/03/21 08:59 Last Admin: 10/06/21 08:11 Dose: 1 gm Documented by: Glucagon (Glucagon For Inj 1 Mg Vial) 1 mg SQ UD PRN; Protocol PRN Reason: Hypoglycemia Protocol Stop: 11/02/21 21:59 Glucose (Glucose 40% Gel 15 Gm Tube) 15 - 30 gm PO UD PRN; Protocol PRN Reason: Hypoglycemia Protocol Stop: 11/02/21 21:59 Glucose (Glucose 10 Tabs/Tube) 4 - 8 tabs PO UD PRN; Protocol PRN Reason: Hypoglycemia Protocol Stop: 11/02/21 21:59 Hydralazine HCl (Hydralazine Tab 50 Mg Tab) 50 mg PO BID [facility] Stop: 11/02/21 21:20 Last Admin: 10/06/21 08:15 Dose: 50 mg Documented by: Bumetanide 2 mg/ Syringe 8 mls @ 4 mls/min IV BID@0900,1700 [facility] Stop: 11/03/21 08:59 Last Admin: 10/06/21 08:17 Dose: 4 mls/min Documented by: Insulin Aspart (Insulin Aspart 100 Units/Ml 3 Ml Pen) 0 units SC ACHS [facility]; Protocol Stop: 11/02/21 21:59 Last Admin: 10/06/21 13:12 Dose: 12 units Documented by: Insulin Human NPH (Insulin Human Nph) 20 units SC BID [facility]; Protocol Stop: 11/05/21 08:59 Last Admin: 10/06/21 08:15 Dose: 20 units Documented by: Isosorbide Dinitrate (Isosorbide Dinitrate 20 Mg Tab) 20 mg PO 0700,1200,1700 [facility] Stop: 11/03/21 06:59 Last Admin: 10/06/21 13:13 Dose: 20 mg Documented by: Levothyroxine Sodium (Levothyroxine Sodium 112 Mcg Tablet) 112 mcg PO DAILYBB [facility] Stop: 11/03/21 06:29 Last Admin: 10/06/21 05:41 Dose: 112 mcg Documented by: Metoprolol Tartrate (Metoprolol Tartrate 50 Mg Tab) 50 mg PO BID [facility] Stop: 11/02/21 21:20 Last Admin: 10/06/21 08:15 Dose: 50 mg Documented by: Miscellaneous (Carbohydrates For Hypoglycemia ) 15 - 30 gm PO UD PRN PRN Reason: Hypoglycemia Treatment Stop: 11/02/21 21:59 Miscellaneous Information (Pharmacy Glycemic Mgmt Consult) 1 ea N/A UD PRN PRN Reason: Consult Stop: 11/02/21 21:20 Ondansetron HCl (Ondansetron Inj 2 Mg/Ml 2 Ml Vial) 4 mg IV Q6H PRN PRN Reason: Nausea Stop: 11/02/21 21:20 Polyethylene Glycol (Polyethylene (Miralax) 17 Gm Pack) 17 gm PO DAILY PRN PRN Reason: Constipation Stop: 11/02/21 21:20 Polyethylene Glycol (Polyethylene (Miralax) 17 Gm Pack) 17 gm PO BID [facility] Stop: 11/04/21 20:59 Last Admin: 10/06/21 08:16 Dose: Not Given Documented by: Vitamin D (Cholecalciferol 1,000 Units 25 Mcg Tab) 1,000 units PO QAM [facility] Stop: 11/03/21 08:59 Last Admin: 10/06/21 08:11 Dose: 1,000 units Documented by: Warfarin Sodium (Warfarin Sod 3 Mg Tab) 3 mg PO DAILY@1600 [facility] Stop: 11/05/21 15:59 PG Care Time/CCT Total # of Minutes Spent Total Time Spent with Patient: Total time spent is greater than 50% in coordination of care (as documented) at patient's floor/unit and/or counseling patient: Coding Level of Care Code 00432 Subseq Hosp Care Lvl 3 Diagnoses Acute exacerbation of CHF (congestive heart failure) I50.9 Heart failure type: unspecified CKD (chronic kidney disease) stage 4, GFR 15-29 ml/min N18.4 T2DM (type 2 diabetes mellitus) E11.9 Hypertension I10 Hypertension type: essential hypertension Atrial fibrillation I48.91 Atrial fibrillation type: unspecified Venous stasis ulcer of left lower extremity I83.029; L97.929 Hypothyroidism E03.9 Hypothyroidism type: acquired Supratherapeutic INR R79.1 Anemia D64.9 (1) Acute exacerbation of CHF (congestive heart failure) Heart failure type: unspecified Qualified Code(s): I50.9 - Heart failure, unspecified (2) Atrial fibrillation Atrial fibrillation type: unspecified Qualified Code(s): I48.91 - Unspecified atrial fibrillation (3) Hypothyroidism Hypothyroidism type: acquired Qualified Code(s): E03.9 - Hypothyroidism, unspecified (4) Hypertension Hypertension type: essential hypertension Qualified Code(s): I10 - Essential (primary) hypertension
[2021-10-06] MEDS: WARFARIN SOD 3 MG TAB PO SCH (17:24)
[2021-10-07] MEDS: LEVOTHYROXINE SODIUM 112 MCG TABLET PO SCH (06:16)
[2021-10-07] MEDS: ISOSORBIDE DINITRATE 20 MG TAB PO SCH ×3 (06:17→17:03)
[2021-10-07 07:04] LABS: Hematocrit (blood only) 24.5 % (42-52); Hemoglobin 7.4 g/dL (14.0-18.0); Mean Corpuscular Hemoglobin 29.5 pg (25-34); Mean Corpuscular Hgb Conc 30.2 g/dL (32-36); Mean Corpuscular Volume 97.6 fL (80-100); Mean Platelet Volume 10.1 fL (7.4-10.4); Platelet Count 258 K/uL (130-400); RDW Coefficient of Variation 18.5 % (11.5-14.5); RDW Standard Deviation 65.5 fL (36.4-46.3); Red Blood Count 2.51 M/uL (4.7-6.1); White Blood Count 8.17 K/uL (4.8-10.8)
[2021-10-07 07:08] LABS: INR 2.8 (0.9-1.1); Prothrombin Time 26.2 Seconds (9.0-12.0)
[2021-10-07 07:45] LABS: BUN Creatinine Ratio 17.5 (10-20); Calcium 8.3 mg/dl (8.5-10.1); Creatinine Clr Calc Pharmacy 17.3 ml/min; Est GFR (Non-African American) 10.3 ml/min
[2021-10-07] MEDS: CHOLECALCIFEROL 1,000 UNITS 25 MCG TAB PO SCH (08:03)
[2021-10-07] MEDS: allopurinoL 300 MG TAB PO SCH (08:03)
[2021-10-07] MEDS: ASCORBIC ACID 500 MG TAB PO SCH (08:03)
[2021-10-07] MEDS: AMIODARONE 200 MG TAB PO SCH ×2 (08:03→21:12)
[2021-10-07] MEDS: ATORVASTATIN 10 MG TAB PO SCH (08:03)
[2021-10-07] MEDS: OMEGA-3 (PURIFIED FISH OIL) 1 GM CAP PO SCH (08:04)
[2021-10-07] MEDS: hydrALAZINE TAB 50 MG TAB PO SCH ×2 (08:04→21:12)
[2021-10-07] MEDS: FENOFIBRATE NANOCRYSTALLIZED 48 MG TABLET PO SCH (08:04)
[2021-10-07] MEDS: POLYETHYLENE (MIRALAX) 17 GM PACK PO SCH ×2 (08:04→21:11)
[2021-10-07] MEDS: METOPROLOL TARTRATE 50 MG TAB PO SCH ×2 (08:04→21:12)
[2021-10-07] MEDS: INSULIN ASPART 100 UNITS/ML 3 ML PEN SC SCH ×4 (08:09→21:14)
[2021-10-07] MEDS: INSULIN HUMAN NPH SC SCH ×2 (08:10→21:13)
--- NOTE | 2021-10-07 08:27 | Palliative Care Consultation ---
Date of Consultation October 07, 2021 Assessment & Plan (1) Palliative care encounter: I met with Elfego at his bedside. He was sitting in his bed in no apparent distress. Last admission, he had a more flat affect and was in what appeared to be in denial about his overall disease progression. We reflected on his previous hospitalization and reviewed his current symptoms and plan of care. I asked him to describe his home environment and he stated that he has one or two steps to enter his home, but it is otherwise all one-story living. He stated that he has utilized meals on wheels service for the past two years. He has a sister in law, Dedra, a daughter Lisa in [place] and a son, Obinna who is local and helps from time to time. 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 I asked him what brings him joey or makes him happy. He said 'nothing really', which is consistent with previous encounters. I asked him to discuss more about his thought process regarding not wishing to pursue hemodialysis. He stated that his sister was a dialysis patient and he watched her go through that, and then saw how fast she after stopping dialysis. He said he just cant see himself dedicating all of that time to doing the treatment. He said 'when its my time, it just is'. He understands that without perusing hemodialysis that he ultimately is limiting his life and he is comfortable with that. He states that he is not fearful of dying. We talked about his code status and he said he would not want CPR nor a ventilator. He said he would not want his family to make that decision either and if its unlikely to fix anything anyway, why do it. He did express that he knows what 'shocks feel like' and doesn't want more misery. Code status changed to DNR/DNI as reflective of our conversation as it was last admission. He said that his daughter has been looking into SNF placement. He said that does make him sad because he would want to stay at home, but does recognize he may need more assistance as his life progresses. We did discuss hospice services, which he was receptive to. He would prefer to return home, but knows he needs additional support. I did reach out to his sister Dedra at [phone] and spoke at length regarding her view on his scenario. She does support him going to a SNF as she indicated he is really unable to care for himself at home. His daughter Brigido lives in [place] and has been looking into SNF, but she was not sure which ones. Her phone # is [phone]. Case management to reach out to Brigido to discuss placement options. The above was communicated with nursing, case management and the hospitalist. Palliative Medicine will follow and POLST would be helpful prior to DC if possible. (2) Hypoxia: (3) Acute on chronic congestive heart failure: (4) Venous stasis ulcer of left lower extremity: History of Present Illness Reason for Consultation: Goals of care Requesting Physician: Dr. Edin Mora Attending Physician: Tanner Kim History of Present Illness Mr. Warren is a 75 year old male who presented to the [facility] with hypoxia, dyspnea, and bloody mucus. He recently had cataract surgery a few months ago and was discharged and started to experience the symptoms when he returned home. Additional PMH includes: CAD with an AR in 2007, CHF EF 40%, chronic renal insufficiency stage IV, SM2, aortic stenosis and had a RLE amputation s/p prosthesis. He is routinely non-compliant with his medications at home. He does live alone at home and is relatively independent, still driving, but does require 2LNC of supplemental oxygen. He has a pacemaker defibrillator and this admission has gone into SVT and has received a total of 6 shocks being delivered. His BNP is elevated at 11,671 and his Troponin peaked at 0.156. Nephrology has evaluated this individual as his creatinine is now 3.97, now 5.06. Hemodialysis has been recommended, but the patient has declined. Palliative Medicine was consulted to discuss overall goals of care, including code status. Thanks for involving Palliative Medicine with this individual. Allergies Allergy/AdvReac Type Severity Reaction Status Date / Time No Known Allergies Allergy Verified 08/01/21 06:39 Home Medications Medication Instructions Recorded Confirmed Type allopurinol 300 mg tablet 300 mg PO QAM 04/22/19 10/03/21 History fenofibrate nanocrystallized 48 mg 48 mg PO QAM 04/22/19 10/03/21 History tablet hydralazine 50 mg tablet 50 mg PO BID 04/22/19 10/03/21 History insulin aspar prt-insulin aspart 90 unit SUBCUT QPM 04/22/19 10/03/21 History 100 unit/mL (70-30) subcutaneous soln (Novolog Mix 70-30 U-100 Insuln) insulin aspar prt-insulin aspart 100 unit SUBCUT QAM 04/22/19 10/03/21 History 100 unit/mL (70-30) subcutaneous soln (Novolog Mix 70-30 U-100 Insuln) levothyroxine 112 mcg tablet 112 mcg PO QAM 04/22/19 10/03/21 History metoprolol tartrate 50 mg tablet 50 mg PO BID 04/22/19 10/03/21 History cholecalciferol (vitamin D3) 25 1,000 unit PO QAM 05/31/19 10/03/21 History mcg (1,000 unit) capsule (Vitamin D3) omega-3 360 mg-dha 144 mg-epa 216 1 cap PO QAM 05/31/19 10/03/21 History mg-fish oil 1,200 mg capsule,del rel (Fish Oil) warfarin 1 mg tablet 2 mg PO DAILY tab 05/15/21 10/03/21 History warfarin 5 mg tablet 5 mg PO DAILY tab 05/15/21 10/03/21 History ascorbic acid (vitamin C) 500 mg 500 mg PO DAILY 08/01/21 10/03/21 History tablet (Vitamin C) amiodarone 200 mg tablet 200 mg PO BID #60 tab 08/15/21 10/03/21 Rx atorvastatin 10 mg tablet 10 mg PO QAM #30 tab 08/15/21 10/03/21 Rx isosorbide dinitrate 20 mg tablet 20 mg PO 0700,1200,1700 #90 tab 08/15/2110/13 Rx torsemide 10 mg tablet 40 mg PO DAILY #30 tab 08/15/21 10/03/21 Rx Patient History Medical History (Updated 10/07/21 @ 08:28 by KEATON Rocha) Atrial fibrillation 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 Bilateral interstitial pneumonia hx CAD (coronary artery disease) Cardiac defibrillator in place follows with [facility] cardiology ([facility]) CHF (congestive heart failure) CKD (chronic kidney disease) stage 4, GFR 15-29 ml/min Heart disease Hx of colonic polyps Hyperlipidemia Hypertension Hypothyroidism ICD (implantable cardioverter-defibrillator) battery depletion Pt with BiV ICD at [facility]; for a generator change; discussed the procedure and potential risks with the patient which include but not limited to , arrhythmia, stroke, heart attack, bleeding and infection. consent obtained LBBB (left bundle branch block) Myocardial Infarction (~2007) reason for the cardio/defib. 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 and converted to a BiV in 02/2013 with recent generator exchange 04/19/19 History of colonoscopy History of left heart catheterization No obstructive coronary disease, 2007 Family History Father Stroke Mother Diabetes Social History Smoking Status: Former smoker Tobacco Type: Cigarettes Cigarettes Per Day: 1983; Second Hand Exposure: No; Do You Dip or Chew Tobacco: No; Hx Alcohol Use: No Hx Substance Use: No Preferred Language: Sami Communication Ability: Effective Visual Impairment: Limited Hearing Ability: Normal 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 Beliefs That Will Affect Care: None marital status: Single Current Living Situation: Alone Current Living Situation Comment: lives in house alone current occupational status: retired How many Children do You have: 2 How many Children do You have Comment: family fairly local and able to help with care Other Information That Helps Us Care for You: No Feels Safe at Home: Yes Safety Concerns: Feels Safe At This Time Diet Comment: stated he "watches sweet", but it's difficult Assistive Devices: Glasses, Oxygen - Continuous and Prosthesis Review of Systems Review of Systems: [place] System Assessment Scale: Pain: 0/3 SOB: 1/3 Anxiety: 0/3 Depression: 1/3 Tiredness: 0/3 Palliative Performance Scale: 30% Physical Exam Constitutional: + frail appearing and comfortable Results & Data ([facility]) Vital Signs (Past 12 Hours) Vital Signs Temp Pulse Pulse Resp BP Pulse Ox 10/07/21 07:39 36.6 C 64 20 149/69 H 98 10/07/21 06:16 64 10/07/21 05:55 65 10/07/21 05:40 36.4 C L 66 134/72 93 PG Care Time/CCT Total # of Minutes Spent Total Time Spent with Patient: Total time spent is greater than 50% in coordination of care (as documented) at patient's floor/unit and/or counseling patient: 70 minutes with > 50% of that time spent assessing the patient, discussing goals of care with patient and family, all while collaborating with IDT. Coding Level of Care Code 73076 Initial Inpt Care Lvl 3 Diagnoses Palliative care encounter Z51.5 Hypoxia R09.02 Acute on chronic congestive heart failure I50.9 Venous stasis ulcer of left lower extremity I83.029; L97.929 Time Spent (min) 70
[2021-10-07] MEDS ORDERED: SODIUM CHLORIDE 0.65% NA SOLN 45 ML (OCEAN) ONE (09:36)
[2021-10-07] MEDS: BUMETANIDE 2 MG in SYRINGE 0 ML IV SCH (09:41)
--- NOTE | 2021-10-07 11:43 | Cardiology Progress Note ---
Date of Service October 07, 2021 Assessment & Plan (1) Acute on chronic congestive heart failure: (2) Nonischemic cardiomyopathy: (3) Biventricular ICD (implantable cardioverter-defibrillator) in place: (4) CKD (chronic kidney disease) stage 4, GFR 15-29 ml/min: (5) Anemia: (6) Supratherapeutic INR: Plan: 75-year-old male with issues as noted with nonischemic cardiomyopathy with moderate left systolic dysfunction (echo July 2021) EF 40-45%, mild to mod erate aortic stenosis and chronic systolic and diastolic heart failure superimposed on chronic renal insufficiency. Patient presents with acutely decompensated congestive heart failure right greater than left marked lower extremity edema and abdominal distention as well as mild pulmonary edema. INR supratherapeutic with associated symptoms of hemoptysis with cough, anemia No evidence of arrhythmias with patient remaining in sinus and ventricular paced rhythm Recommendations: No change in recommendations. Current issues appear secondary to declining renal function rather than cardiac compromise. Continue IV diuretics as per nephrology May need anemia addressed Admission and Anticipated Discharge Date Admission Date: October 03, 2021 Subjective Patient seen and examined, chart, medications, telemetry reviewed. Continues gradual diuresis with marginal renal function No acute cardiac complaints. Lower extremity edema slightly improved. Patient does not wish to discuss dialysis Review of Systems Review of Systems: All systems reviewed & are unremarkable except as noted in Subjective Physical Exam Constitutional: no acute distress Eyes: PERRL, conjunctivae normal, anicteric sclerae ENMT: external ear and nose normal, oropharynx normal Neck: trachea midline, no thyromegaly Respiratory: Auscultation: + diminished lung sounds Cardiovascular: Rate/Rhythm: regular rate and regular rhythm (Ventricular paced) Heart Sounds: normal S1, normal S2 and + murmur (2/6 systolic ejection murmur no diastolic murmur); no gallop Palpation: normal PMI Vessels: radial pulses present; no carotid bruit Extremities: + edema (1-2+ lower extremity edema left leg and right thigh) Musculoskeletal: Extremities: + lower leg abnormality (Right BKA) Skin: no rashes, warm and dry Neurologic: PERRL, EOMI, accommodation nl, no face palsy, no dysarthria Psychiatric: A+Ox3, euthymic affect Results & Data ([facility]) Vital Signs (Past 12 Hours) Vital Signs Temp Pulse Pulse Pulse Resp BP Pulse Ox 10/07/21 11:34 36.7 C 65 20 117/66 93 10/07/21 07:39 36.6 C 64 20 149/69 H 98 10/07/21 06:16 64 10/07/21 05:55 65 10/07/21 05:40 36.4 C L 66 134/72 93 Laboratory Results Laboratory Results - last 24 hr 10/06/21 10/06/21 10/07/21 15:46 20:56 06:32 WBC RBC Hgb Hct MCV MCH MCHC RDW Std Deviation RDW Coeff of Nicolasa Plt Count MPV PT 26.2 H INR 2.8 H Sodium Potassium Chloride Carbon Dioxide Anion Gap BUN Creatinine Est Cr Clr Drug Dosing Est GFR ( Amer) Est GFR (Non-Af Amer) BUN/Creatinine Ratio Glucose POC Glucose 193 H 114 H Calcium 10/07/21 10/07/21 10/07/21 06:32 06:32 07:44 WBC 8.17 RBC 2.51 L Hgb 7.4 L Hct 24.5 L MCV 97.6 MCH 29.5 MCHC 30.2 L RDW Std Deviation 65.5 H RDW Coeff of Nicolasa 18.5 H Plt Count 258 MPV 10.1 PT INR Sodium 137 Potassium 4.0 Chloride 104 Carbon Dioxide 22 Anion Gap 11.0 BUN 88 H Creatinine 5.06 H* Est Cr Clr Drug Dosing 17.3 Est GFR ( Amer) 12.0 Est GFR (Non-Af Amer) 10.3 BUN/Creatinine Ratio 17.5 Glucose 113 H POC Glucose 127 H Calcium 8.3 L 10/07/21 11:29 WBC RBC Hgb Hct MCV MCH MCHC RDW Std Deviation RDW Coeff of Nicolasa Plt Count MPV PT INR Sodium Potassium Chloride Carbon Dioxide Anion Gap BUN Creatinine Est Cr Clr Drug Dosing Est GFR ( Amer) Est GFR (Non-Af Amer) BUN/Creatinine Ratio Glucose POC Glucose 146 H Calcium
--- NOTE | 2021-10-07 15:04 | Nephrology Progress Note ---
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 His numbers continue to climb ( better today), but he looks he comfortable, urine output has also improved. Increase bumex to 8 bid. add metolazone 5 mg now. We are reaching to a point where he would need a decision about dialysis or comfort care. At the moment she seems to be very resistant to the idea of dialysis. he understands the implication of the decision and seems determined not to do Dialysis. Appreciate Palliative med consult. We will continue to monitor (2) Acute on chronic congestive heart failure: (3) Chronic kidney insufficiency: Subjective patient continues to diurese but still has lot of edema. Appears more comfortable today. Review of Systems Review of Systems: Bilateral pedal edema. In mild respiratory distress. Physical Exam Physical Exam: GENERAL: Elderly white male. On 4 6 L of oxygen HEENT: Mucous membrane is moist. NECK: Supple. Cannot assess JVD secondary to short, obese neck. CHEST: Bilateral decreased breath sounds, occasional crackles at the bases. CARDIOVASCULAR: S1 and S2, irregular. Soft systolic murmur heard. ABDOMEN: Soft, nontender, obese. EXTREMITIES: Shows right BKA and left has 2+ edema, but is bandaged. NEUROLOGIC: Awake, alert and oriented. Normal speech. Results & Data ([facility]) Vital Signs (Past 12 Hours) Vital Signs Temp Pulse Pulse Pulse Resp BP Pulse Ox 10/07/21 11:34 36.7 C 65 20 117/66 93 10/07/21 07:39 36.6 C 64 20 149/69 H 98 10/07/21 06:16 64 10/07/21 05:55 65 10/07/21 05:40 36.4 C L 66 134/72 93
[2021-10-07] MEDS ORDERED: metOLazone 5 MG TABLET PO ONE (15:15)
[2021-10-07] MEDS: WARFARIN SOD 3 MG TAB PO SCH (15:25)
--- NOTE | 2021-10-07 16:28 | XRay Report ---
XR KUB/Abdomen 1 view CLINICAL HISTORY: constipation TECHNIQUE: 1 view of the abdomen was obtained. Comparison: None available at the time of this dictation. FINDINGS: Lung bases are unremarkable. The osseous structures are grossly unremarkable. The bowel gas pattern i s nonobstructive. A moderate amount of stool is noted within the large bowel. IMPRESSION: Nonobstructive bowel gas pattern. ACT 112: Negative or not required by law. Electronically signed by: Edin Marvin M.D. 10/07/2021 4:26 PM
[2021-10-07] MEDS ORDERED: GLYCERIN ADULT 12 SUPP/BOX SUPP PR ONE (16:55)
[2021-10-07] MEDS: BUMETANIDE 4 MG in SYRINGE 0 ML IV SCH (17:03)
[2021-10-07] MEDS: DOCUSATE SODIUM/SENNA 50/8.6MG TAB PO SCH (17:36)
--- NOTE | 2021-10-07 21:29 | Hospitalist Progress Note ---
Date of Service October 07, 2021 Assessment & Plan (1) Acute exacerbation of CHF (congestive heart failure): Plan: 75yo Male PMH CHF DM2 CKD IV afib on warfarin, CAD HTN HLD ICD placement chronic venous stasis here for SOB. Acute on chronic HFrEF continue Bumex 2mg IV BID, Cr stable at 5 educated patient on the need to avoid sodium, weight daily, fluid restriction brought up the idea of dialysis, refuses to consider this stable on 6L NC, negative fluid balance of a little over a liter appreciate cardiology consult and nephrology consult CKD IV - Cr essentially unchanged, it is 5.0 -nephrology consult: patient needs to think about HD, approaching time when diuretics will not work -continue bumex 2mg IV in ED K is stable he said he would not want HD, "that is no way to live, my sister had it and she hated it" I will consult palliative to see patient, explained he will need hospice when his kidneys do not respond, which could be soon Supratherapeutic INR -INR 9.5 on admission (was taking too much at home, was not checking with PCP) INR 2.4 from 1.8 after resuming Coumadin 5mg daily reduce Coumadin to 3mg daily check INR: 2.8 Anemia -Hbg 7.6, has not really changed in 3 days -possibly 2/2 to fluid overload status -no melena, continue to monitor - would not transfuse as he is already volume overloaded, BP stable DM2 -glycemic consult placed -dynamics ax technical architect consulted -07/2021 A1c 9.3 monitor for hypoglycemia, no episodes HTN -continue hydralzine 50mg BID -continue metoprolol tartrate 50mg BID -torsemide on hold -received bumex 2mg IV in ED Atrial Fibrillation -EKG = atrial sensed ventricular paced rhythm -INR 2.4, Coumadin 3mg daily -patient has ICD and pacer -continue amiodarone 200mg BID -continue metoprolol tartrate 50mg BID -cardiology consulted Hx Ventricular Fibrillation -monitor on tele -cont amiodarone Venous stasis of LLE -order compression stockings, leg elevation -DVT unlikely given his home warfarin HLD -continue fenofibrate 48mg -continue atorvastatin 10mg Gout -continue allopurinol 300mg Hypothyroidism -continue levothyroxine 112 mcg -12/2020 TSH 3.51 - Constipation: Miralax BID FENa: heart healthy carb consistent low sodium fluid restriction 1500ml Code Status: conditional, DNR, ok for intubation in a respiratory arrest DVT PPX: INR 2.8 PT/OT: ordered (2) CKD (chronic kidney disease) stage 4, GFR 15-29 ml/min: (3) T2DM (type 2 diabetes mellitus): (4) Hypertension: (5) Atrial fibrillation: (6) Venous stasis ulcer of left lower extremity: (7) Hypothyroidism: (8) Supratherapeutic INR: (9) Anemia: Admission and Anticipated Discharge Date Admission Date: October 03, 2021 Subjective Patient reports no new symptoms He still is against HD. He states he may be inersted if it were for 2 hours instead of 4. Review of Systems Review of Systems: All systems reviewed & are unremarkable except as noted in HPI & below Physical Exam Physical Exam: General: well developed, well nourished, no acute distress, obese male, comfortable Neck: supple, trachea midline, normal thyroid Lungs: crackles in bases, normal respiratory effort, no accessory muscle use, no distress Heart: regular S1 and S2, no murmur, peripheral pulses normal, capillary refill normal, 2+ pitting edema in legs and abdomen Abdomen: soft, NT, ND, + BS, no hepatomegaly, normal to percussion Extremities: right leg BKA, no cyanosis, no petechiae, strength is 5/5 bilaterally Neuro: awake, cooperative, moves all extremities, no focal motor deficits, CN II-XII intact, sensation in extremities intact, normal speech Skin: warm, dry, no rash, normal turgor Psych: Awake, alert oriented x 3, euthymic affect Results & Data Results & Data ([facility]) Vital Signs (Past 12 Hours) Vital Signs Temp Pulse Pulse Pulse Resp BP Pulse Ox 10/07/21 20:09 36.6 C 75 18 156/71 H 95 10/07/21 15:40 36.5 C 67 20 132/77 92 10/07/21 15:15 66 10/07/21 11:34 36.7 C 65 20 117/66 93 PG Care Time/CCT Total # of Minutes Spent Total Time Spent with Patient: Total time spent is greater than 50% in coordination of care (as documented) at patient's floor/unit and/or counseling patient: Coding Level of Care Code 00575 Subseq Hosp Care Lvl 2 Diagnoses Acute exacerbation of CHF (congestive heart failure) I50.9 Heart failure type: unspecified CKD (chronic kidney disease) stage 4, GFR 15-29 ml/min N18.4 T2DM (type 2 diabetes mellitus) E11.9 Hypertension I10 Hypertension type: essential hypertension Atrial fibrillation I48.91 Atrial fibrillation type: unspecified Venous stasis ulcer of left lower extremity I83.029; L97.929 Hypothyroidism E03.9 Hypothyroidism type: acquired Supratherapeutic INR R79.1 Anemia D64.9 Time Spent (min) 25 (1) Acute exacerbation of CHF (congestive heart failure) Heart failure type: unspecified Qualified Code(s): I50.9 - Heart failure, unspecified (2) Hypertension Hypertension type: essential hypertension Qualified Code(s): I10 - Essential (primary) hypertension (3) Atrial fibrillation Atrial fibrillation type: unspecified Qualified Code(s): I48.91 - Unspecified atrial fibrillation (4) Hypothyroidism Hypothyroidism type: acquired Qualified Code(s): E03.9 - Hypothyroidism, unspecified
[2021-10-08] MEDS: LEVOTHYROXINE SODIUM 112 MCG TABLET PO SCH (06:29)
[2021-10-08] MEDS: ISOSORBIDE DINITRATE 20 MG TAB PO SCH ×3 (06:31→16:36)
[2021-10-08] MEDS: AMIODARONE 200 MG TAB PO SCH ×2 (07:37→20:05)
[2021-10-08] MEDS: allopurinoL 300 MG TAB PO SCH (07:37)
[2021-10-08] MEDS: ASCORBIC ACID 500 MG TAB PO SCH (07:38)
[2021-10-08] MEDS: BUMETANIDE 4 MG in SYRINGE 0 ML IV SCH ×2 (07:38→16:36)
[2021-10-08] MEDS: ATORVASTATIN 10 MG TAB PO SCH (07:38)
[2021-10-08] MEDS: CHOLECALCIFEROL 1,000 UNITS 25 MCG TAB PO SCH (07:38)
[2021-10-08] MEDS: DOCUSATE SODIUM/SENNA 50/8.6MG TAB PO SCH (07:38)
[2021-10-08] MEDS: OMEGA-3 (PURIFIED FISH OIL) 1 GM CAP PO SCH (07:39)
[2021-10-08] MEDS: hydrALAZINE TAB 50 MG TAB PO SCH ×2 (07:39→20:05)
[2021-10-08] MEDS: METOPROLOL TARTRATE 50 MG TAB PO SCH ×2 (07:39→20:05)
[2021-10-08] MEDS: metOLazone 5 MG TABLET PO SCH (07:39)
[2021-10-08] MEDS: FENOFIBRATE NANOCRYSTALLIZED 48 MG TABLET PO SCH (07:39)
[2021-10-08 07:57] LABS: INR 2.6 (0.9-1.1); Prothrombin Time 24.3 Seconds (9.0-12.0)
[2021-10-08] MEDS: INSULIN ASPART 100 UNITS/ML 3 ML PEN SC SCH ×4 (08:36→20:43)
[2021-10-08] MEDS: INSULIN HUMAN NPH SC SCH ×2 (08:37→20:46)
[2021-10-08] MEDS: POLYETHYLENE (MIRALAX) 17 GM PACK PO SCH ×2 (08:40→20:05)
[2021-10-08 09:15] LABS: Hematocrit (blood only) 23.9 % (42-52); Hemoglobin 7.3 g/dL (14.0-18.0); Mean Corpuscular Hemoglobin 29.6 pg (25-34); Mean Corpuscular Hgb Conc 30.5 g/dL (32-36); Mean Corpuscular Volume 96.8 fL (80-100); Mean Platelet Volume 10.2 fL (7.4-10.4); Platelet Count 289 K/uL (130-400); RDW Coefficient of Variation 18.2 % (11.5-14.5); RDW Standard Deviation 64.2 fL (36.4-46.3); Red Blood Count 2.47 M/uL (4.7-6.1)
[2021-10-08 09:48] LABS: BUN Creatinine Ratio 18.9 (10-20); Calcium 8.3 mg/dl (8.5-10.1); Est GFR (African American) 11.7 ml/min; Est GFR (Non-African American) 10.1 ml/min; Potassium 3.5 mmol/L (3.5-5.1)
--- NOTE | 2021-10-08 09:53 | Nephrology Progress Note ---
Date of Service October 08, 2021 Assessment & Plan Admission and Anticipated Discharge Date Admission Date: October 03, 2021 Subjective Subjective Assessment & Plan (1) Acute kidney injury: Plan: Likely ATN on top of CKD 4/5. He is known to be CKD stage 4/5, with his serum creatinine in early to mid fours, and has been resistant to the idea of dialysis in the past. His numbers continue to get worse, but he looks he comfortable, urine output has also improved a lot more Conitnue bumex to 4 bid. add metolazone 5 mg We are reaching to a point where he would need a decision about dialysis or comfort care. At the moment she seems to be very resistant to the idea of dialysis. he understands the implication of the decision and seems determined not to do Di alysis. Appreciate Palliative med consult. We will continue to monitor Subjective patient continues to diurese but still has lot of edema. Appears more comfortable today. Review of Systems Review of Systems: Bilateral pedal edema. In mild respiratory distress. Physical Exam Physical Exam: GENERAL: Elderly white male. On 4 6 L of oxygen HEENT: Mucous membrane is moist. NECK: Supple. Cannot assess JVD secondary to short, obese neck. CHEST: Bilateral decreased breath sounds, occasional crackles at the bases. CARDIOVASCULAR: S1 and S2, irregular. Soft systolic murmur heard. ABDOMEN: Soft, nontender, obese. EXTREMITIES: Shows right BKA and left has 2+ edema, but is bandaged. NEUROLOGIC: Awake, alert and oriented. Normal speech. Results & Data ([facility]) Vital Signs (Past 12 Hours) Vital Signs Temp Pulse Pulse Pulse Resp BP Pulse Ox 10/08/21 07:18 36.5 C 66 20 126/73 92 10/08/21 07:12 64 10/08/21 04:53 36.3 C L 66 20 138/80 94 10/07/21 22:50 36.4 C L 67 20 145/68 H 97
--- NOTE | 2021-10-08 11:21 | Cardiology Progress Note ---
Date of Service October 08, 2021 Assessment & Plan (1) Acute on chronic congestive heart failure: (2) Nonischemic cardiomyopathy: (3) Biventricular ICD (implantable cardioverter-defibrillator) in place: (4) CKD (chronic kidney disease) stage 4, GFR 15-29 ml/min: (5) Anemia: (6) Supratherapeutic INR: Plan: 75-year-old male with issues as noted with nonischemic cardiomyopathy with moderate left systolic dysfunction (echo July 2021) EF 40-45%, mild to mod erate aortic stenosis and chronic systolic and diastolic heart failure superimposed on chronic renal insufficiency. Patient presents with acutely decompensated congestive heart failure right greater than left marked lower extremity edema and abdominal distention as well as mild pulmonary edema. INR supratherapeutic with associated symptoms of hemoptysis with cough, anemia No evidence of arrhythmias with patient remaining in sinus and ventricular paced rhythm Recommendations: No change in recommendations. Current issues appear secondary to declining renal function rather than cardiac compromise. Continue IV diuretics as per nephrology Patient not amenable to dialysis Cardiac status stable will follow peripherally Admission and Anticipated Discharge Date Admission Date: October 03, 2021 Subjective Patient seen and examined, chart, medications telemetry reviewed. Appreciate nephrology and palliative care input. Patient slightly more lethargic this morning no acute complaints Still with gradual diuresis Physical Exam Constitutional: no acute distress Eyes: PERRL, conjunctivae normal, anicteric sclerae ENMT: external ear and nose normal, oropharynx normal Neck: trachea midline, no thyromegaly Respiratory: Auscultation: + diminished lung sounds Cardiovascular: Rate/Rhythm: regular rate and regular rhythm (Ventricular paced) Heart Sounds: normal S1, normal S2 and + murmur (2/6 systolic ejection murmur no diastolic murmur); no gallop Palpation: normal PMI Vessels: radial pulses present; no carotid bruit Extremities: + edema (1-2+ lower extremity edema left leg and right thigh) Musculoskeletal: Extremities: + lower leg abnormality (Right BKA) Skin: no rashes, warm and dry Neurologic: PERRL, EOMI, accommodation nl, no face palsy, no dysarthria Psychiatric: A+Ox3, euthymic affect Results & Data ([facility]) Vital Signs (Past 12 Hours) Vital Signs Temp Pulse Pulse Pulse Resp BP Pulse Ox 10/08/21 07:18 36.5 C 66 20 126/73 92 10/08/21 07:12 64 10/08/21 04:53 36.3 C L 66 20 138/80 94 Laboratory Results Laboratory Results - last 24 hr 10/07/21 10/07/21 10/07/21 11:29 16:39 20:19 WBC RBC Hgb Hct MCV MCH MCHC RDW Std Deviation RDW Coeff of Nicolasa Plt Count MPV PT INR Sodium Potassium Chloride Carbon Dioxide Anion Gap BUN Creatinine Est Cr Clr Drug Dosing Est GFR ( Amer) Est GFR (Non-Af Amer) BUN/Creatinine Ratio Glucose POC Glucose 146 H 88 127 H Calcium 10/08/21 10/08/21 10/08/21 06:57 07:00 07:00 WBC 8.10 RBC 2.47 L Hgb 7.3 L Hct 23.9 L MCV 96.8 MCH 29.6 MCHC 30.5 L RDW Std Deviation 64.2 H RDW Coeff of Nicolasa 18.2 H Plt Count 289 MPV 10.2 PT 24.3 H INR 2.6 H Sodium 137 Potassium 3.5 Chloride 102 Carbon Dioxide 23 Anion Gap 11.0 BUN 96 H Creatinine 5.15 H* Est Cr Clr Drug Dosing 17.0 Est GFR ( Amer) 11.7 Est GFR (Non-Af Amer) 10.1 BUN/Creatinine Ratio 18.9 Glucose 108 H POC Glucose Calcium 8.3 L 10/08/21 07:38 WBC RBC Hgb Hct MCV MCH MCHC RDW Std Deviation RDW Coeff of Nicolasa Plt Count MPV PT INR Sodium Potassium Chloride Carbon Dioxide Anion Gap BUN Creatinine Est Cr Clr Drug Dosing Est GFR ( Amer) Est GFR (Non-Af Amer) BUN/Creatinine Ratio Glucose POC Glucose 120 H Calcium
--- NOTE | 2021-10-08 12:23 | Pharmacy Report ---
Pharmacy Glycemic Short Note 2 - Date of Service October 08, 2021 - Glycemic Short BSG Results (Last 24 hours): 10/07/21 10/07/21 10/08/21 16:39 20:19 07:00 Glucose 108 H POC Glucose 88 127 H 10/08/21 10/08/21 07:38 11:44 Glucose POC Glucose 120 H 233 H OUTPATIENT ANTIDIABETIC REGIMEN: * Novolog mix 70/30 100 units SQ qam, 90 units SQ qpm ASSESSMENT: 10/07/21: * Mr Warren has been receiving ~60 units of insulin daily for the past several days, with relatively well-controlled BSGs. * Pt is still not open to dialysis. Palliative consult is in place. * No changes to insulin regimen required at this time. 10/06 * Pt has received 57 units of insulin over the past 24hrs * 44 units of basal with NPH * 13 units of bolus with NovoLog * BSGs [phone]/150 mg/dl * All BSGs in goal range with current orders. GLU this M trended downwards from yesterday (131 --> 106 mg/dl) will slightly decrease basal insulin to prevent LOW tomorrow. Also, regimen is heavily weighted towards basal insulin. Will try to attempt to redistribute in a more 50:50% distribution of basal:prandial. 10/04 * Patient presenting with acute CHF exacerbation * Patient previously known to the glycemic service. Will use past data to help guide insulin regimen * Patient is tolerating a diet. PLAN FOR INPATIENT GLYCEMIC CONTROL: * Hold outpatient oral diabetes medications * Basal insulin * NPH 20 units SQ BID * Bolus insulin * NovoLog per scale ACHS or Q6hrs while NPO * Goal Range: Low 110 mg/dL - High 140 mg/dL * Correction Factor: 20 mg/dL/unit * Nutritional / Prandial insulin per carb ratio of 1 unit per 6 grams CHO consumed PLAN FOR DISCHARGE: * A1c is unreliable secondary to CKD and altered RBC turnover rate. If patient is experiencing hypoglycemia as an outpatient recommend decreasing outpatient insulin doses as outpatient doses are significantly higher than inpatient dosing.
[2021-10-08] MEDS ORDERED: COUGH DROP (SUGAR FREE) LOZ 24 LOZ/1 BOX BUCCAL ONE (15:06)
[2021-10-08] MEDS: WARFARIN SOD 3 MG TAB PO SCH (16:36)
--- NOTE | 2021-10-08 21:55 | Hospitalist Progress Note ---
Date of Service October 08, 2021 Assessment & Plan (1) Acute exacerbation of CHF (congestive heart failure): Plan: 75yo Male PMH CHF DM2 CKD IV afib on warfarin, CAD HTN HLD ICD placement chronic venous stasis here for SOB. Acute on chronic HFrEF continue Bumex 2mg IV BID, Cr stable at 5 educated patient on the need to avoid sodium, weight daily, fluid restriction brought up the idea of dialysis, refuses to consider this stable on 4L NC, negative fluid balance of a little over a liter appreciate cardiology consult and nephrology consult CKD IV - Cr essentially unchanged, it is 5.0 -nephrology consult: patient needs to think about HD, approaching time when diuretics will not work -continue bumex 2mg IV in ED K is stable he said he would not want HD, "that is no way to live, my sister had it and she hated it" I will consult palliative to see patient, explained he will need hospice when his kidneys do not respond, which could be soon Supratherapeutic INR -INR 9.5 on admission (was taking too much at home, was not checking with PCP) INR 2.4 from 1.8 after resuming Coumadin 5mg daily reduce Coumadin to 3mg daily check INR: 2.6 Anemia -Hbg 7.3, has not really changed in 3 days -possibly 2/2 to fluid overload status -no melena, continue to monitor - would not transfuse as he is already volume overloaded, BP stable DM2 -glycemic consult placed -turkey cleaner consulted -07/2021 A1c 9.3 monitor for hypoglycemia, no episodes HTN -continue hydralzine 50mg BID -continue metoprolol tartrate 50mg BID -torsemide on hold -received bumex 2mg IV in ED Atrial Fibrillation -EKG = atrial sensed ventricular paced rhythm -INR 2.4, Coumadin 3mg daily -patient has ICD and pacer -continue amiodarone 200mg BID -continue metoprolol tartrate 50mg BID -cardiology consulted Hx Ventricular Fibrillation -monitor on tele -cont amiodarone Venous stasis of LLE -order compression stockings, leg elevation -DVT unlikely given his home warfarin HLD -continue fenofibrate 48mg -continue atorvastatin 10mg Gout -continue allopurinol 300mg Hypothyroidism -continue levothyroxine 112 mcg -12/2020 TSH 3.51 - Constipation: Miralax BID FENa: heart healthy carb consistent low sodium fluid restriction 1500ml Code Status: conditional, DNR, ok for intubation in a respiratory arrest DVT PPX: INR 2.6 PT/OT: ordered (2) CKD (chronic kidney disease) stage 4, GFR 15-29 ml/min: (3) T2DM (type 2 diabetes mellitus): (4) Hypertension: (5) Atrial fibrillation: (6) Venous stasis ulcer of left lower extremity: (7) Hypothyroidism: (8) Supratherapeutic INR: (9) Anemia: Admission and Anticipated Discharge Date Admission Date: October 03, 2021 Subjective Patient reports no new symptoms. Review of Systems Review of Systems: All systems reviewed & are unremarkable except as noted in HPI & below Physical Exam Physical Exam: General: well developed, well nourished, no acute distress, obese male, comfortable Neck: supple, trachea midline, normal thyroid Lungs: crackles in bases, normal respiratory effort, no accessory muscle use, no distress Heart: regular S1 and S2, no murmur, peripheral pulses normal, capillary refill normal, 2+ pitting edema in legs and abdomen Abdomen: soft, NT, ND, + BS, no hepatomegaly, normal to percussion Extremities: right leg BKA, no cyanosis, no petechiae, strength is 5/5 bilaterally Neuro: awake, cooperative, moves all extremities, no focal motor deficits, CN II-XII intact, sensation in extremities intact, normal speech Skin: warm, dry, no rash, normal turgor Psych: Awake, alert oriented x 3, euthymic affect Results & Data Results & Data ([facility]) Vital Signs (Past 12 Hours) Vital Signs Temp Pulse Pulse Pulse Resp BP Pulse Ox 10/08/21 18:38 36.7 C 69 20 145/77 H 96 10/08/21 15:31 36.7 C 82 20 130/96 92 10/08/21 15:13 78 10/08/21 11:45 36.5 C 70 22 146/74 H 93 PG Care Time/CCT Total # of Minutes Spent Total Time Spent with Patient: Total time spent is greater than 50% in coordination of care (as documented) at patient's floor/unit and/or counseling patient: Coding Level of Care Code 19530 Subseq Hosp Care Lvl 2 Diagnoses Acute exacerbation of CHF (congestive heart failure) I50.9 Heart failure type: unspecified CKD (chronic kidney disease) stage 4, GFR 15-29 ml/min N18.4 T2DM (type 2 diabetes mellitus) E11.9 Hypertension I10 Hypertension type: essential hypertension Atrial fibrillation I48.91 Atrial fibrillation type: unspecified Venous stasis ulcer of left lower extremity I83.029; L97.929 Hypothyroidism E03.9 Hypothyroidism type: acquired Supratherapeutic INR R79.1 Anemia D64.9 (1) Acute exacerbation of CHF (congestive heart failure) Heart failure type: unspecified Qualified Code(s): I50.9 - Heart failure, unspecified (2) Hypertension Hypertension type: essential hypertension Qualified Code(s): I10 - Essential (primary) hypertension (3) Atrial fibrillation Atrial fibrillation type: unspecified Qualified Code(s): I48.91 - Unspecified atrial fibrillation (4) Hypothyroidism Hypothyroidism type: acquired Qualified Code(s): E03.9 - Hypothyroidism, unspecified
[2021-10-09] MEDS: LEVOTHYROXINE SODIUM 112 MCG TABLET PO SCH (06:43)
[2021-10-09] MEDS: ISOSORBIDE DINITRATE 20 MG TAB PO SCH ×3 (06:43→17:29)
[2021-10-09 08:04] LABS: Hematocrit (blood only) 23.7 % (42-52); Hemoglobin 7.4 g/dL (14.0-18.0); Mean Corpuscular Hemoglobin 29.5 pg (25-34); Mean Corpuscular Hgb Conc 31.2 g/dL (32-36); Mean Corpuscular Volume 94.4 fL (80-100); Mean Platelet Volume 9.4 fL (7.4-10.4); Platelet Count 298 K/uL (130-400); RDW Coefficient of Variation 17.8 % (11.5-14.5); RDW Standard Deviation 61.5 fL (36.4-46.3); Red Blood Count 2.51 M/uL (4.7-6.1)
[2021-10-09 08:21] LABS: INR 2.3 (0.9-1.1); Prothrombin Time 22.2 Seconds (9.0-12.0)
[2021-10-09] MEDS: INSULIN HUMAN NPH SC SCH ×2 (08:34→21:05)
[2021-10-09] MEDS: INSULIN ASPART 100 UNITS/ML 3 ML PEN SC SCH ×4 (08:35→21:06)
[2021-10-09] MEDS: ATORVASTATIN 10 MG TAB PO SCH (08:37)
[2021-10-09] MEDS: OMEGA-3 (PURIFIED FISH OIL) 1 GM CAP PO SCH (08:37)
[2021-10-09] MEDS: FENOFIBRATE NANOCRYSTALLIZED 48 MG TABLET PO SCH (08:37)
[2021-10-09] MEDS: metOLazone 5 MG TABLET PO SCH (08:37)
[2021-10-09] MEDS: ASCORBIC ACID 500 MG TAB PO SCH (08:37)
[2021-10-09] MEDS: CHOLECALCIFEROL 1,000 UNITS 25 MCG TAB PO SCH (08:37)
[2021-10-09] MEDS: DOCUSATE SODIUM/SENNA 50/8.6MG TAB PO SCH (08:37)
[2021-10-09] MEDS: BUMETANIDE 4 MG in SYRINGE 0 ML IV SCH ×2 (08:37→17:31)
[2021-10-09] MEDS: AMIODARONE 200 MG TAB PO SCH ×2 (08:38→21:03)
[2021-10-09] MEDS: METOPROLOL TARTRATE 50 MG TAB PO SCH ×2 (08:38→21:04)
[2021-10-09] MEDS: POLYETHYLENE (MIRALAX) 17 GM PACK PO SCH ×2 (08:38→21:18)
[2021-10-09] MEDS: hydrALAZINE TAB 50 MG TAB PO SCH ×2 (08:38→21:04)
[2021-10-09] MEDS: allopurinoL 300 MG TAB PO SCH (08:38)
[2021-10-09 08:47] LABS: BUN Creatinine Ratio 18.3 (10-20); Calcium 8.9 mg/dl (8.5-10.1); Creatinine Clr Calc Pharmacy 15.5 ml/min; Est GFR (African American) 10.7 ml/min; Est GFR (Non-African American) 9.2 ml/min; Potassium 3.5 mmol/L (3.5-5.1)
--- NOTE | 2021-10-09 10:31 | Nephrology Progress Note ---
Date of Service October 09, 2021 Assessment & Plan Admission and Anticipated Discharge Date Admission Date: October 03, 2021 Subjective Assessment & Plan (1) Acute kidney injury: Plan: ATN on top of CKD 4/5. He is known to be CKD stage 4/5, with his serum creatinine in early to mid fours, and has been resistant to the idea of dialysis in the past. His numbers continue to get worse, but he looks he comfortable, urine output has also improved a lot more. Continue bumex 4 bid. metolazone 5 mg We are reaching to a point where he would need a decision about dialysis or comfort care. yesterday he seemed he 100% dont want to do Dialysis but today he said he is still thinking about Dialysis and also says " I dont want to and my Family wants to ". This is not unexpected reaction as lot of patients do change their mind. He Can be a candidate for dialysis ( somewhat marginal) although with all medical problems not easy. Appreciate Palliative med consult. Subjective patient continues to diurese but still has lot of edema. Appears more comfortable today. Review of Systems Review of Systems: Bilateral pedal edema. In mild respiratory distress. Physical Exam Physical Exam: GENERAL: Elderly white male. On 4 6 L of oxygen HEENT: Mucous membrane is moist. NECK: Supple. Cannot assess JVD secondary to short, obese neck. CHEST: Bilateral decreased breath sounds, occasional crackles at the bases. CARDIOVASCULAR: S1 and S2, irregular. Soft systolic murmur heard. ABDOMEN: Soft, nontender, obese. EXTREMITIES: Shows right BKA and left has 2+ edema, but is bandaged. NEUROLOGIC: Awake, alert and oriented. Normal speech. Results & Data ([facility]) Vital Signs (Past 12 Hours) Vital Signs Temp Pulse Pulse Pulse Resp BP Pulse Ox 10/09/21 07:39 36.7 C 65 20 109/58 L 91 10/09/21 07:11 63 10/09/21 04:00 36.5 C 62 18 137/67 95 10/08/21 23:34 36.8 C 70 18 165/79 H 96
[2021-10-09] MEDS: WARFARIN SOD 3 MG TAB PO SCH (17:28)
--- NOTE | 2021-10-09 20:29 | Hospitalist Progress Note ---
Date of Service October 09, 2021 Assessment & Plan (1) Acute exacerbation of CHF (congestive heart failure): Plan: 75yo Male PMH CHF DM2 CKD IV afib on warfarin, CAD HTN HLD ICD placement chronic venous stasis here for SOB. Acute on chronic HFrEF continue Bumex 2mg IV BID, Cr stable at 5 educated patient on the need to avoid sodium, weight daily, fluid restriction brought up the idea of dialysis, refuses to consider this stable on 4L NC, negative fluid balance of a little over a liter appreciate cardiology consult and nephrology consult CKD IV - Cr essentially unchanged, it is 5.0 -nephrology consult: patient needs to think about HD, approaching time when diuretics will not work -continue bumex 2mg IV in ED K is stable he said he would not want HD, "that is no way to live, my sister had it and she hated it" I will consult palliative to see patient, explained he will need hospice when his kidneys do not respond, which could be soon On 10/09 patient reports that he is undecided if he wants dialysis or not. This will delay discharge as he may require a SNF that has dialysis services. Supratherapeutic INR -INR 9.5 on admission (was taking too much at home, was not checking with PCP) INR 2.4 from 1.8 after resuming Coumadin 5mg daily reduce Coumadin to 3mg daily check INR: 2.6 Anemia -Hbg 7.3, has not really changed in 3 days -possibly 2/2 to fluid overload status -no melena, continue to monitor - would not transfuse as he is already volume overloaded, BP stable DM2 -glycemic consult placed -delinquency prevention officer consulted -07/2021 A1c 9.3 monitor for hypoglycemia, no episodes HTN -continue hydralzine 50mg BID -continue metoprolol tartrate 50mg BID -torsemide on hold -received bumex 2mg IV in ED Atrial Fibrillation -EKG = atrial sensed ventricular paced rhythm -INR 2.4, Coumadin 3mg daily -patient has ICD and pacer -continue amiodarone 200mg BID -continue metoprolol tartrate 50mg BID -cardiology consulted Hx Ventricular Fibrillation -monitor on tele -cont amiodarone Venous stasis of LLE -order compression stockings, leg elevation -DVT unlikely given his home warfarin HLD -continue fenofibrate 48mg -continue atorvastatin 10mg Gout -continue allopurinol 300mg Hypothyroidism -continue levothyroxine 112 mcg -12/2020 TSH 3.51 - Constipation: Miralax BID FENa: heart healthy carb consistent low sodium fluid restriction 1500ml Code Status: conditional, DNR, ok for intubation in a respiratory arrest DVT PPX: INR 2.6 PT/OT: ordered (2) CKD (chronic kidney disease) stage 4, GFR 15-29 ml/min: (3) T2DM (type 2 diabetes mellitus): (4) Hypertension: (5) Atrial fibrillation: (6) Venous stasis ulcer of left lower extremity: (7) Hypothyroidism: (8) Supratherapeutic INR: (9) Anemia: Admission and Anticipated Discharge Date Admission Date: October 03, 2021 Subjective 75 yo male reports no new symptoms. Review of Systems Review of Systems: All systems reviewed & are unremarkable except as noted in HPI & below Physical Exam Physical Exam: General: well developed, well nourished, no acute distress, obese male, comfortable Neck: supple, trachea midline, normal thyroid Lungs: crackles in bases, normal respiratory effort, no accessory muscle use, no distress Heart: regular S1 and S2, no murmur, peripheral pulses normal, capillary refill normal, 2+ pitting edema in legs and abdomen Abdomen: soft, NT, ND, + BS, no hepatomegaly, normal to percussion Extremities: right leg BKA, no cyanosis, no petechiae, strength is 5/5 bilaterally Neuro: awake, cooperative, moves all extremities, no focal motor deficits, CN II-XII intact, sensation in extremities intact, normal speech Skin: warm, dry, no rash, normal turgor Psych: Awake, alert oriented x 3, euthymic affect7 Results & Data Results & Data ([facility]) Vital Signs (Past 12 Hours) Vital Signs Temp Pulse Pulse Pulse Resp BP Pulse Ox 10/09/21 19:33 36.2 C L 69 18 129/72 96 10/09/21 15:06 70 10/09/21 14:56 36.6 C 69 18 136/71 92 10/09/21 11:38 36.6 C 60 20 152/75 H 96 PG Care Time/CCT Total # of Minutes Spent Total Time Spent with Patient: Total time spent is greater than 50% in coordination of care (as documented) at patient's floor/unit and/or counseling patient: Coding Level of Care Code 37468 Subseq Hosp Care Lvl 2 Diagnoses Acute exacerbation of CHF (congestive heart failure) I50.9 Heart failure type: unspecified CKD (chronic kidney disease) stage 4, GFR 15-29 ml/min N18.4 T2DM (type 2 diabetes mellitus) E11.9 Hypertension I10 Hypertension type: essential hypertension Atrial fibrillation I48.91 Atrial fibrillation type: unspecified Venous stasis ulcer of left lower extremity I83.029; L97.929 Hypothyroidism E03.9 Hypothyroidism type: acquired Supratherapeutic INR R79.1 Anemia D64.9 Time Spent (min) 25 (1) Acute exacerbation of CHF (congestive heart failure) Heart failure type: unspecified Qualified Code(s): I50.9 - Heart failure, unspecified (2) Hypertension Hypertension type: essential hypertension Qualified Code(s): I10 - Essential (primary) hypertension (3) Atrial fibrillation Atrial fibrillation type: unspecified Qualified Code(s): I48.91 - Unspecified atrial fibrillation (4) Hypothyroidism Hypothyroidism type: acquired Qualified Code(s): E03.9 - Hypothyroidism, unspecified
[2021-10-10] MEDS: LEVOTHYROXINE SODIUM 112 MCG TABLET PO SCH (05:51)
[2021-10-10] MEDS: ISOSORBIDE DINITRATE 20 MG TAB PO SCH ×3 (06:18→16:40)
[2021-10-10 07:15] LABS: Hematocrit (blood only) 25.2 % (42-52); Hemoglobin 7.8 g/dL (14.0-18.0); Mean Corpuscular Volume 93.7 fL (80-100); Mean Platelet Volume 9.6 fL (7.4-10.4); Platelet Count 309 K/uL (130-400); RDW Coefficient of Variation 17.6 % (11.5-14.5); RDW Standard Deviation 60.3 fL (36.4-46.3); Red Blood Count 2.69 M/uL (4.7-6.1); White Blood Count 9.03 K/uL (4.8-10.8)
[2021-10-10 08:09] LABS: BUN Creatinine Ratio 19.5 (10-20); Calcium 9.1 mg/dl (8.5-10.1); Creatinine Clr Calc Pharmacy 15.2 ml/min; Est GFR (African American) 10.6 ml/min; Est GFR (Non-African American) 9.2 ml/min; Potassium 3.5 mmol/L (3.5-5.1)
[2021-10-10] MEDS: POLYETHYLENE (MIRALAX) 17 GM PACK PO SCH ×2 (09:33→20:49)
[2021-10-10] MEDS: DOCUSATE SODIUM/SENNA 50/8.6MG TAB PO SCH (09:33)
[2021-10-10] MEDS: allopurinoL 300 MG TAB PO SCH (09:37)
[2021-10-10] MEDS: ATORVASTATIN 10 MG TAB PO SCH (09:37)
[2021-10-10] MEDS: AMIODARONE 200 MG TAB PO SCH ×2 (09:37→20:51)
[2021-10-10] MEDS: ASCORBIC ACID 500 MG TAB PO SCH (09:37)
[2021-10-10] MEDS: FENOFIBRATE NANOCRYSTALLIZED 48 MG TABLET PO SCH (09:38)
[2021-10-10] MEDS: OMEGA-3 (PURIFIED FISH OIL) 1 GM CAP PO SCH (09:38)
[2021-10-10] MEDS: CHOLECALCIFEROL 1,000 UNITS 25 MCG TAB PO SCH (09:38)
[2021-10-10] MEDS: BUMETANIDE 4 MG in SYRINGE 0 ML IV SCH ×2 (09:38→16:41)
[2021-10-10] MEDS: METOPROLOL TARTRATE 50 MG TAB PO SCH ×2 (09:39→20:50)
[2021-10-10] MEDS: metOLazone 5 MG TABLET PO SCH (09:39)
[2021-10-10] MEDS: hydrALAZINE TAB 50 MG TAB PO SCH ×2 (09:39→20:51)
[2021-10-10] MEDS: INSULIN ASPART 100 UNITS/ML 3 ML PEN SC SCH ×4 (09:45→20:52)
[2021-10-10] MEDS: INSULIN HUMAN NPH SC SCH ×2 (09:47→20:52)
--- NOTE | 2021-10-10 10:17 | Nephrology Progress Note ---
Date of Service October 10, 2021 Assessment & Plan Admission and Anticipated Discharge Date Admission Date: October 03, 2021 Subjective Subjective Assessment & Plan (1) Acute kidney injury: Plan: ATN on top of CKD 4/5. He is known to be CKD stage 4/5, with his serum creatinine in early to mid fours, and has been resistant to the idea of dialysis in the past. His numbers continue to get worse, but he looks he comfortable, urine output has also improved a lot more. Continue bumex 4 bid. metolazone 5 mg daily. has made decision about Dialysis now says " I dont want to and my Family--daughter and sister in law dont want me to ". This is not unexpected reaction as lot of patients do change their mind. He Can be a candidate for dialysis ( somewhat marginal) although with all medical problems not easy. SO will place vascular surgery Consult for Tunnelled HD cath. Updated performance manager and primary team. Subjective patient continues to diurese but still has lot of edema. Appears more comfortable today. Review of Systems Review of Systems: Bilateral pedal edema. In mild respiratory distress. Physical Exam Physical Exam: GENERAL: Elderly white male. On 4 6 L of oxygen HEENT: Mucous membrane is moist. NECK: Supple. Cannot assess JVD secondary to short, obese neck. CHEST: Bilateral decreased breath sounds, occasional crackles at the bases. CARDIOVASCULAR: S1 and S2, irregular. Soft systolic murmur heard. ABDOMEN: Soft, nontender, obese. EXTREMITIES: Shows right BKA and left has 2+ edema, but is bandaged. NEUROLOGIC: Awake, alert and oriented. Normal speech. Results & Data ([facility]) Vital Signs (Past 12 Hours) Vital Signs Temp Pulse Pulse Resp BP Pulse Ox 10/10/21 07:45 36.3 C L 72 20 111/63 90 10/10/21 03:53 36.4 C L 61 18 128/67 100 10/09/21 23:37 36.4 C L 67 18 100/56 L 91 10/09/21 22:23 67
[2021-10-10] MEDS ORDERED: SODIUM CHLORIDE 0.9% 50 ML BAG ONE (14:20)
[2021-10-10] MEDS ORDERED: PROMETHAZINE HCL INJ 25 MG/ML 1 ML VIAL ONE (14:21)
--- NOTE | 2021-10-10 14:43 | Consultation ---
Date of Consultation October 10, 2021 Assessment & Plan (1) Acute kidney injury: Recommend insertion of permcath for dialysis. I have discussed the risks options and benefits of the procedure with the patient. The patient understands the risks options and benefits and agrees to the procedure. This will be placed in the am tomorrow. Thank you very much for letting us participate in the care of this patient. History of Present Illness Reason for Consultation: Acute kidney injury Attending Physician: Tanner Kim History of Present Illness Mr Montero is a 75yo male PMH CHF, DM2 CKD IV, afib on warfarin, CAD, HTN, HLD, ICD placement, chronic venous stasis admitted to the hospital for SOB. He states he was hospitalized last month for a similar problem. His kidney function has worsened to a point that he needs dialysis. Allergies Allergy/AdvReac Type Severity Reaction Status Date / Time No Known Allergies Allergy Verified 08/01/21 06:39 Home Medications Medication Instructions Recorded Confirmed Type allopurinol 300 mg tablet 300 mg PO QAM 04/22/19 10/03/21 History fenofibrate nanocrystallized 48 mg 48 mg PO QAM 04/22/19 10/03/21 History tablet hydralazine 50 mg tablet 50 mg PO BID 04/22/19 10/03/21 History insulin aspar prt-insulin aspart 90 unit SUBCUT QPM 04/22/19 10/03/21 History 100 unit/mL (70-30) subcutaneous soln (Novolog Mix 70-30 U-100 Insuln) insulin aspar prt-insulin aspart 100 unit SUBCUT QAM 04/22/19 10/03/21 History 100 unit/mL (70-30) subcutaneous soln (Novolog Mix 70-30 U-100 Insuln) levothyroxine 112 mcg tablet 112 mcg PO QAM 04/22/19 10/03/21 History metoprolol tartrate 50 mg tablet 50 mg PO BID 04/22/19 10/03/21 History cholecalciferol (vitamin D3) 25 1,000 unit PO QAM 05/31/19 10/03/21 History mcg (1,000 unit) capsule (Vitamin D3) omega-3 360 mg-dha 144 mg-epa 216 1 cap PO QAM 05/31/19 10/03/21 History mg-fish oil 1,200 mg capsule,del rel (Fish Oil) warfarin 1 mg tablet 2 mg PO DAILY tab 05/15/21 10/03/21 History warfarin 5 mg tablet 5 mg PO DAILY tab 05/15/21 10/03/21 History ascorbic acid (vitamin C) 500 mg 500 mg PO DAILY 08/01/21 10/03/21 History tablet (Vitamin C) amiodarone 200 mg tablet 200 mg PO BID #60 tab 08/15/21 10/03/21 Rx atorvastatin 10 mg tablet 10 mg PO QAM #30 tab 08/15/21 10/03/21 Rx isosorbide dinitrate 20 mg tablet 20 mg PO 0700,1200,1700 #90 tab 08/15/21 10/03/21 Rx torsemide 10 mg tablet 40 mg PO DAILY #30 tab 08/15/21 10/03/21 Rx Patient History Medical History Atrial fibrillation 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 Bilateral interstitial pneumonia hx CAD (coronary artery disease) Cardiac defibrillator in place [facility] with [facility] cardiology ([facility]) CHF (congestive heart failure) CKD (chronic kidney disease) stage 4, GFR 15-29 ml/min Heart disease Hx of colonic polyps Hyperlipidemia Hypertension Hypothyroidism ICD (implantable cardioverter-defibrillator) battery depletion Pt with BiV ICD at [facility]; for a generator change; discussed the procedure and potential risks with the patient which include but not limited to , arrhythmia, stroke, heart attack, bleeding and infection. consent obtained LBBB (left bundle branch block) Myocardial Infarction (~2007) reason for the cardio/defib. Nonischemic cardiomyopathy Palliative care encounter Palliative care encounter Postoperative hematoma hx PVD (peripheral vascular disease) T2DM (type 2 diabetes mellitus) Surgical History Biventricular ICD (implantable cardioverter-defibrillator) in place initially placed in 2007 secondary to nonischemic [employer] and converted to a BiV in 02/2013 with recent generator exchange 04/19/19 History of colonoscopy History of left heart catheterization No obstructive coronary disease, 2007 Family History Father Stroke Mother Diabetes Social History Smoking Status: Former smoker Tobacco Type: Cigarettes Cigarettes Per Day: 1983; Second Hand Exposure: No; Do You Dip or Chew Tobacco: No; Hx Alcohol Use: No Hx Substance Use: No Preferred Language: Greenlandic Communication Ability: Effective Visual Impairment: Limited Hearing Ability: Normal Senior 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: No Beliefs That Will Affect Care: None marital status: Single Current Living Situation: Alone Current Living Situation Comment: lives in house alone current occupational status: retired How many Children do You have: 2 How many Children do You have Comment: family fairly local and able to help with care Other Information That Helps Us Care for You: No Feels Safe at Home: Yes Safety Concerns: Feels Safe At This Time Diet Comment: stated he "watches sweet", but it's difficult Assistive Devices: Prosthesis and Walker Review of Systems Review of Systems: All systems reviewed & are unremarkable except as noted in HPI & below Physical Exam Constitutional: WD/WN, vitals as above Respiratory: normal respiratory effort; no respiratory distress Auscultation: + crackles Cardiovascular: Rate/Rhythm: regular rate and regular rhythm Vessels: femoral pulses present and radial pulses present Extremities: normal capillary refill (right bka) and + edema Gastrointestinal (Abdomen): Inspection/Auscultation: abdomen normal to inspection Percussion/Palpation: abdomen soft; abdomen nontender Neurologic: CN's II-XI intact bilaterally and moves all extremities Psychiatric: Orientation: alert and oriented x 3 Results & Data ([facility]) Vital Signs (Past 12 Hours) Vital Signs Temp Pulse Resp BP Pulse Ox 10/10/21 11:07 36.4 C L 87 20 129/73 96 10/10/21 07:45 36.3 C L 72 20 111/63 90 10/10/21 03:53 36.4 C L 61 18 128/67 100
[2021-10-10] MEDS: WARFARIN SOD 3 MG TAB PO SCH (16:40)
--- NOTE | 2021-10-10 21:40 | Hospitalist Progress Note ---
Date of Service October 10, 2021 Assessment & Plan (1) Acute exacerbation of CHF (congestive heart failure): Plan: 75yo Male PMH CHF DM2 CKD IV afib on warfarin, CAD HTN HLD ICD placement chronic venous stasis here for SOB. Acute on chronic HFrEF continue Bumex 2mg IV BID, Cr stable at 5 educated patient on the need to avoid sodium, weight daily, fluid restriction brought up the idea of dialysis, refuses to consider this stable on 4L NC, negative fluid balance of a little over a liter appreciate cardiology consult and nephrology consult CKD IV - Cr essentially unchanged, it is 5.0 -nephrology consult: patient needs to think about HD, approaching time when diuretics will not work -continue bumex 2mg IV in ED K is stable he said he would not want HD, "that is no way to live, my sister had it and she hated it" I will consult palliative to see patient, explained he will need hospice when his kidneys do not respond, which could be soon On 10/10 patient reports that he is agreeable to dialysis. This will delay discharge as he may require a SNF that has dialysis services. Supratherapeutic INR -INR 9.5 on admission (was taking too much at home, was not checking with PCP) INR 2.4 from 1.8 after resuming Coumadin 5mg daily reduce Coumadin to 3mg daily check INR: 2.6 Anemia -Hbg 7.3, has not really changed in 3 days -possibly 2/2 to fluid overload status -no melena, continue to monitor - would not transfuse as he is already volume overloaded, BP stable DM2 -glycemic consult placed -database report writer consulted -07/2021 A1c 9.3 monitor for hypoglycemia, no episodes HTN -continue hydralzine 50mg BID -continue metoprolol tartrate 50mg BID -torsemide on hold -received bumex 2mg IV in ED Atrial Fibrillation -EKG = atrial sensed ventricular paced rhythm -INR 2.4, Coumadin 3mg daily -patient has ICD and pacer -continue amiodarone 200mg BID -continue metoprolol tartrate 50mg BID -cardiology consulted Hx Ventricular Fibrillation -monitor on tele -cont amiodarone Venous stasis of LLE -order compression stockings, leg elevation -DVT unlikely given his home warfarin HLD -continue fenofibrate 48mg -continue atorvastatin 10mg Gout -continue allopurinol 300mg Hypothyroidism -continue levothyroxine 112 mcg -12/2020 TSH 3.51 - Constipation: Miralax BID FENa: heart healthy carb consistent low sodium fluid restriction 1500ml Code Status: conditional, DNR, ok for intubation in a respiratory arrest DVT PPX: INR 2.6 PT/OT: ordered (2) CKD (chronic kidney disease) stage 4, GFR 15-29 ml/min: (3) T2DM (type 2 diabetes mellitus): (4) Hypertension: (5) Atrial fibrillation: (6) Venous stasis ulcer of left lower extremity: (7) Hypothyroidism: (8) Supratherapeutic INR: (9) Anemia: Admission and Anticipated Discharge Date Admission Date: October 03, 2021 Subjective 75 yo male reports no new symptoms. Review of Systems Review of Systems: All systems reviewed & are unremarkable except as noted in HPI & below Physical Exam Physical Exam: General: well developed, well nourished, no acute distress, obese male, comfortable Neck: supple, trachea midline, normal thyroid Lungs: crackles in bases, normal respiratory effort, no accessory muscle use, no distress Heart: regular S1 and S2, no murmur, peripheral pulses normal, capillary refill normal, 2+ pitting edema in legs and abdomen Abdomen: soft, NT, ND, + BS, no hepatomegaly, normal to percussion Extremities: right leg BKA, no cyanosis, no petechiae, strength is 5/5 bilaterally Neuro: awake, cooperative, moves all extremities, no focal motor deficits, CN II-XII intact, sensation in extremities intact, normal speech Skin: warm, dry, no rash, normal turgor Psych: Awake, alert oriented x 3, euthymic affect Results & Data Results & Data ([facility]) Vital Signs (Past 12 Hours) Vital Signs Temp Pulse Pulse Resp BP Pulse Ox 10/10/21 19:12 36.4 C L 72 18 137/70 98 10/10/21 15:15 36.7 C 68 20 138/69 95 10/10/21 15:00 68 10/10/21 11:07 36.4 C L 87 20 129/73 96 PG Care Time/CCT Total # of Minutes Spent Total Time Spent with Patient: Total time spent is greater than 50% in coordination of care (as documented) at patient's floor/unit and/or counseling patient: Coding Level of Care Code 31734 Subseq Hosp Care Lvl 2 Diagnoses Acute exacerbation of CHF (congestive heart failure) I50.9 Heart failure type: unspecified CKD (chronic kidney disease) stage 4, GFR 15-29 ml/min N18.4 T2DM (type 2 diabetes mellitus) E11.9 Hypertension I10 Hypertension type: essential hypertension Atrial fibrillation I48.91 Atrial fibrillation type: unspecified Venous stasis ulcer of left lower extremity I83.029; L97.929 Hypothyroidism E03.9 Hypothyroidism type: acquired Supratherapeutic INR R79.1 Anemia D64.9 (1) Acute exacerbation of CHF (congestive heart failure) Heart failure type: unspecified Qualified Code(s): I50.9 - Heart failure, unspecified (2) Hypertension Hypertension type: essential hypertension Qualified Code(s): I10 - Essential (primary) hypertension (3) Atrial fibrillation Atrial fibrillation type: unspecified Qualified Code(s): I48.91 - Unspecified atrial fibrillation (4) Hypothyroidism Hypothyroidism type: acquired Qualified Code(s): E03.9 - Hypothyroidism, unspecified
[2021-10-11] MEDS: ISOSORBIDE DINITRATE 20 MG TAB PO SCH ×3 (05:34→21:45)
[2021-10-11] MEDS: LEVOTHYROXINE SODIUM 112 MCG TABLET PO SCH (05:35)
--- NOTE | 2021-10-11 07:43 | History & Physical Bridge Note ---
Date of Service October 11, 2021 History & Physical Bridge Note Patient for permcath insertion today. I have discussed the risks options and benefits of the procedure with the patient. The patient understands the risks options and benefits and agrees to the procedure. I have examined the patient, reviewed the History & Physical and in the interval since the performance of the History & Physical I have noted the following changes of clinical significance: no changes noted
[2021-10-11] MEDS: BUMETANIDE 4 MG in SYRINGE 0 ML IV SCH ×2 (07:49→21:45)
[2021-10-11] MEDS ORDERED: ceFAZolin 2000MG 2,000 MG/15 ML SYR IV ONE (08:00)
[2021-10-11] MEDS ORDERED: MIDAZOLAM HCL 1 MG/ML 2ML VIAL ONE (09:09)
[2021-10-11] MEDS ORDERED: fentaNYL citrate 100 MCG/2 ML VIAL ONE (09:09)
[2021-10-11] MEDS ORDERED: HEPARIN SOD (PORCINE) 5,000 UNITS/ML VIAL ONE (09:09)
[2021-10-11] MEDS ORDERED: D5W AND 1/4NSS 1,000 ML IV SCH (09:15)
[2021-10-11] MEDS: INSULIN ASPART 100 UNITS/ML 3 ML PEN SC SCH ×4 (09:26→21:34)
--- NOTE | 2021-10-11 09:27 | Pre Anesthesia Assessment ---
Date of Service October 11, 2021 Pre Sedation Assessment Vital Signs Temp Pulse Pulse Resp BP Pulse Ox 10/11/21 08:48 36.6 C 62 22 126/67 100 10/11/21 07:38 36.6 C 62 20 111/53 L 93 10/11/21 07:00 63 10/11/21 04:57 68 10/11/21 03:28 36.4 C L 62 20 123/65 92 10/10/21 23:05 36.5 C 66 20 120/65 95 10/10/21 19:12 36.4 C L 72 18 137/70 98 10/10/21 15:15 36.7 C 68 20 138/69 95 10/10/21 15:00 68 10/10/21 11:07 36.4 C L 87 20 129/73 96 Cardiovascular RRR, no murmur, no edema Respiratory normal respiratory effort, lungs clear to auscultation Pre-Sedation Airway Assessment Smoking Status: Former smoker Hx Sleep Apnea: No Hx Difficult Intubation: No Short, Thick Neck: No Thyromental Distance: > or= 3.5 Finger Breadths Oral Cavity: + Dentures Mallampati Class: III ASA: ASA4 NPO Status Date of Last Intake of Fluids: 10/11/21 Time of Last Intake of Fluids: 06:30 Last Oral Intake of Fluids Comment: sips with meds Date of Last Intake of Solid Food: 10/10/21 Time of Last Intake of Solid Foods: 21:00 Procedure Planning Contraindications for Sedation: none Current Medications Reviewed: Yes Notes The planned sedation has been discussed with the patient. Informed Consent was obtained. I have identified the patient, determined the appropriateness of sedation and have assessed the patient immediately prior to the procedure. All medicine(s) and interventions are by my order.
[2021-10-11 09:36] LABS: Hepatitis B Surface Ab Quant < 3.10 mIU/mL (>or=10mIU/mL Immune); Hepatitis B Surface Antibody Non-Immune
[2021-10-11 09:47] LABS: Hepatitis B Surf Ag Rflx Conf Neg (Neg)
[2021-10-11] MEDS ORDERED: ARISTA ABSORBABLE HEMOSTAT 3GM TOP ONE (09:57)
[2021-10-11] MEDS ORDERED: LIDOCAINE 1% LOCAL 20 ML VIAL INFIL ONE (09:58)
--- NOTE | 2021-10-11 10:03 | Operative Report ---
Post Operative Report Pre & Post Diagnosis Operation Date: 10/11/21 09:20 Pre-Op Diagnosis: acute kidney injury Post-Op Diagnosis: acute kidney injury I identified the patient and participated in the time-out.: Yes Procedure Operation Date: 10/11/21 09:20 Actual Procedures p insertion of perm catheter, right internal jugular approach, ultrasound localization of right internal jugular vein, fluroscopy for positioning, moderate sedation [id number] - Rashad Pace MD Surgeon Rashad Pace MD Drainman none Estimated Blood Loss 10 Findings Consistent with Post-Op Diagnosis Specimens none Anesthesia Type RN Sedation Complications none Disposition Accompanied Patient To Recovery: No Disposition: Recovery Room Indications This is a 75-year-old male with acute kidney injury in need of dialysis. PermC ath was recommended as an access. I have discussed the risks options and benefits of the procedure with the patient. The patient understands the risks options and benefits and agrees to the procedure. Description of Procedure Patient was taken to the angio suite and placed in the supine position. The right side of the neck and chest wall were prepped and draped in a sterile manner. The patient was identified and a timeout performed. Local anesthesia was then administered to the appropriate areas of the neck and chest wall. Ultrasound was then used to locate the right internal jugular vein. The vein compressed easily, had no filing defects, and was patent. The vein was then punctured under direct ultrasound imaging. A guidewire was then passed centrally under fluoroscopic imaging. A stab wound was then made in the anterior chest wall and a 19 cm permcath was passed from the stab wound on the chest wall to the puncture site on the neck. The puncture site was then dilated till the 14Fr peel away sheath was inserted. The permcath was then inserted through the sheath to a central position in the distal superior vena cava. The peel away sheath was then removed. The catheter was then sutured in place using nylon sutures. The puncture was then closed using a 4-0 Vicryl subcuticular suture. Dermabond was used for a dressing on the puncture site. Both ports aspirated and flushed easily and were then packed with heparin. A sterile dressing was applied to the catheter. The patient left the operation room in satisfactory condition and tolerated the procedure well. All needle and sponge counts were correct at the end of the procedure. I attest to the content of the Intraoperative Record and any orders documented therein. Any exceptions are noted below.
--- NOTE | 2021-10-11 10:11 | Post Anesthesia Assessment ---
Date of Service October 11, 2021 Post Sedation Assessment Vital Signs Temp Pulse Pulse Resp BP Pulse Ox 10/11/21 10:08 70 16 134/69 92 10/11/21 10:03 71 16 129/68 92 10/11/21 09:58 71 16 131/70 92 10/11/21 09:53 70 16 130/65 92 10/11/21 09:48 71 16 126/69 90 10/11/21 09:43 67 16 124/70 97 10/11/21 09:38 68 16 129/71 98 10/11/21 09:33 68 16 136/68 97 10/11/21 09:29 68 16 113/54 L 98 10/11/21 08:48 36.6 C 62 22 126/67 100 10/11/21 07:38 36.6 C 62 20 111/53 L 93 10/11/21 07:00 63 10/11/21 04:57 68 10/11/21 03:28 36.4 C L 62 20 123/65 92 10/10/21 23:05 36.5 C 66 20 120/65 95 10/10/21 19:12 36.4 C L 72 18 137/70 98 10/10/21 15:15 36.7 C 68 20 138/69 95 10/10/21 15:00 68 10/10/21 11:07 36.4 C L 87 20 129/73 96 Recovery Score Activity: Moves 4 extremities Respiration: Deep Breath/Cough Circulation: +/-20% PreAnes Value Consciousness: Fully Awake Oxygen Saturation: O2 needed for >90% Post Anesthesia Score: 9 Discharge Sedation Level of Care: Fast Track Phase II Post Sedation Plan On clinical assessment, the patient appears to have tolerated the sedation without complications. Patient is recovering as anticipated. Patient will continue to be monitored by nursing and may be discharged when sedation discharge criteria are met per below protocol. Upon Completions of procedure up to 15 minutes continue every 5 minute vital signs and the P.A.R. score; then discharge to a Phase I or Fast Track to Phase II per the following guidelines: * Discharge Patient to appropriate Phase II area if PAR is 8 or greater or return to pre- procedure baseline. The post - procedure orders will be as directed. * If PAR score is less than 8 or not return to pre-procedure baseline then patient will follow Phase I monitoring till PAR is reached for Phase II. The Phase I may be done in procedure room or may call to secure a Phase I area. * If naloxone or flumazenil are used for reversal, hold in Phase I for continued monitoring from when last reversal dose was given for a minimum of 60 minutes or longer pending the nurse and/or physician discretion of patient condition before discharge to Phase II. Please call the Sedation Physician to re-evaluate and complete post-note for discharge to Phase II area. Do NOT discharge from procedure sedation or Phase 1 until post- sedation evaluation note is complete by procedure /sedation MD Sedation Discharge Instructions to be given to the patient at discharge to home.
[2021-10-11] MEDS: METOPROLOL TARTRATE 50 MG TAB PO SCH ×2 (11:15→21:34)
[2021-10-11] MEDS: ATORVASTATIN 10 MG TAB PO SCH (11:15)
[2021-10-11] MEDS: AMIODARONE 200 MG TAB PO SCH ×2 (11:15→21:34)
[2021-10-11] MEDS: metOLazone 5 MG TABLET PO SCH (11:15)
[2021-10-11] MEDS: FENOFIBRATE NANOCRYSTALLIZED 48 MG TABLET PO SCH (11:15)
[2021-10-11] MEDS: OMEGA-3 (PURIFIED FISH OIL) 1 GM CAP PO SCH (11:16)
[2021-10-11] MEDS: hydrALAZINE TAB 50 MG TAB PO SCH ×2 (11:16→21:33)
[2021-10-11] MEDS: DOCUSATE SODIUM/SENNA 50/8.6MG TAB PO SCH (11:16)
[2021-10-11] MEDS: CHOLECALCIFEROL 1,000 UNITS 25 MCG TAB PO SCH (11:16)
[2021-10-11] MEDS: ASCORBIC ACID 500 MG TAB PO SCH (11:16)
[2021-10-11] MEDS: allopurinoL 300 MG TAB PO SCH (11:16)
[2021-10-11] MEDS ORDERED: SODIUM CHLORIDE 0.9% 1000ML 1,000 ML IV PRN (12:08)
[2021-10-11] MEDS: POLYETHYLENE (MIRALAX) 17 GM PACK PO SCH ×2 (12:11→21:45)
--- NOTE | 2021-10-11 15:02 | Pharmacy Report ---
Pharmacy Glycemic Short Note 2 - Date of Service October 11, 2021 - Glycemic Short BSG Results (Last 24 hours): 10/10/21 10/10/21 10/11/21 16:28 20:10 08:08 POC Glucose 125 H 212 H 137 H 10/11/21 12:03 POC Glucose 168 H OUTPATIENT ANTIDIABETIC REGIMEN: * Novolog mix 70/30 100 units SQ qam, 90 units SQ qpm ASSESSMENT: 10/11/21: * Patient received total of 80 units of insulin yesterday, of which 40 units were NPH * Fasting BSG 137 mg/dL - NPO for perm cath placement. Held AM NPH dose - Not clear when they will start dialysis * Plan to resume NPH again tonight * May need to adjusting dosing tomorrow if HD planned 10/07/21: * Mr Warren has been receiving ~60 units of insulin daily for the past several days, with relatively well-controlled BSGs. * Pt is still not open to dialysis. Palliative consult is in place. * No changes to insulin regimen required at this time. 10/06 * Pt has received 57 units of insulin over the past 24hrs * 44 units of basal with NPH * 13 units of bolus with NovoLog * BSGs [id number]/150 mg/dl * All BSGs in goal range with current orders. GLU this M trended downwards from yesterday (131 --> 106 mg/dl) will slightly decrease basal insulin to prevent LOW tomorrow. Also, regimen is heavily weighted towards basal insulin. Will try to attempt to redistribute in a more 50:50% distribution of basal:prandial. 10/04 * Patient presenting with acute CHF exacerbation * Patient previously known to the glycemic service. Will use past data to help guide insulin regimen * Patient is tolerating a diet. PLAN FOR INPATIENT GLYCEMIC CONTROL: * Hold outpatient oral diabetes medications * Basal insulin * NPH 20 units SQ BID resumed tonight * Bolus insulin * NovoLog per scale ACHS or Q6hrs while NPO * Goal Range: Low 110 mg/dL - High 140 mg/dL * Correction Factor: 20 mg/dL/unit * Nutritional / Prandial insulin per carb ratio of 1 unit per 6 grams CHO consumed PLAN FOR DISCHARGE: * A1c is unreliable secondary to CKD and altered RBC turnover rate. If patient is experiencing hypoglycemia as an outpatient recommend decreasing outpatient insulin doses as outpatient doses are significantly higher than inpatient dosing.
[2021-10-11] MEDS: WARFARIN SOD 3 MG TAB PO SCH (18:47)
--- NOTE | 2021-10-11 20:46 | Hospitalist Progress Note ---
Date of Service October 11, 2021 Assessment & Plan (1) Acute exacerbation of CHF (congestive heart failure): Plan: 75yo Male PMH CHF DM2 CKD IV afib on warfarin, CAD HTN HLD ICD placement chronic venous stasis here for SOB. Acute on chronic HFrEF continue Bumex 2mg IV BID, Cr stable at 5 educated patient on the need to avoid sodium, weight daily, fluid restriction brought up the idea of dialysis, refuses to consider this stable on 4L NC, negative fluid balance of a little over a liter appreciate cardiology consult and nephrology consult CKD IV - Cr essentially unchanged, it is 5.0 -nephrology consult: patient needs to think about HD, approaching time when diuretics will not work -continue bumex 2mg IV in ED K is stable he said he would not want HD, "that is no way to live, my sister had it and she hated it" I will consult palliative to see patient, explained he will need hospice when his kidneys do not respond, which could be soon On 10/10 patient reports that he is agreeable to dialysis. will get permacath today (10/11) This will delay discharge as he may require a SNF that has dialysis services. Supratherapeutic INR -INR 9.5 on admission (was taking too much at home, was not checking with PCP) INR 2.4 from 1.8 after resuming Coumadin 5mg daily reduce Coumadin to 3mg daily check INR: therapeutic Anemia -Hbg 7.3, has not really changed in 3 days -possibly 2/2 to fluid overload status -no melena, continue to monitor - would not transfuse as he is already volume overloaded, BP stable DM2 -glycemic consult placed -shopping investigator consulted -07/2021 A1c 9.3 monitor for hypoglycemia, no episodes HTN -continue hydralzine 50mg BID -continue metoprolol tartrate 50mg BID -torsemide on hold -received bumex 2mg IV in ED Atrial Fibrillation -EKG = atrial sensed ventricular paced rhythm -INR 2.4, Coumadin 3mg daily -patient has ICD and pacer -continue amiodarone 200mg BID -continue metoprolol tartrate 50mg BID -cardiology consulted Hx Ventricular Fibrillation -monitor on tele -cont amiodarone Venous stasis of LLE -order compression stockings, leg elevation -DVT unlikely given his home warfarin HLD -continue fenofibrate 48mg -continue atorvastatin 10mg Gout -continue allopurinol 300mg Hypothyroidism -continue levothyroxine 112 mcg -12/2020 TSH 3.51 - Constipation: Miralax BID FENa: heart healthy carb consistent low sodium fluid restriction 1500ml Code Status: conditional, DNR, ok for intubation in a respiratory arrest DVT PPX: INR 2.6 PT/OT: ordered (2) CKD (chronic kidney disease) stage 4, GFR 15-29 ml/min: (3) T2DM (type 2 diabetes mellitus): (4) Hypertension: (5) Atrial fibrillation: (6) Venous stasis ulcer of left lower extremity: (7) Hypothyroidism: (8) Supratherapeutic INR: (9) Anemia: Admission and Anticipated Discharge Date Admission Date: October 03, 2021 Subjective 75 yo m reports no new symptoms. Review of Systems Review of Systems: All systems reviewed & are unremarkable except as noted in HPI & below Physical Exam Physical Exam: General: well developed, well nourished, no acute distress, obese male, comfortable Neck: supple, trachea midline, normal thyroid Lungs: crackles in bases, normal respiratory effort, no accessory muscle use, no distress Heart: regular S1 and S2, no murmur, peripheral pulses normal, capillary refill normal, 2+ pitting edema in legs and abdomen Abdomen: soft, NT, ND, + BS, no hepatomegaly, normal to percussion Extremities: right leg BKA, no cyanosis, no petechiae, strength is 5/5 bilaterally Neuro: awake, cooperative, moves all extremities, no focal motor deficits, CN II-XII intact, sensation in extremities intact, normal speech Skin: warm, dry, no rash, normal turgor Psych: Awake, alert oriented x 3, euthymic affect Results & Data Results & Data ([facility]) Vital Signs (Past 12 Hours) Vital Signs Temp Pulse Pulse Pulse Resp BP BP 10/11/21 20:00 67 116/63 10/11/21 19:40 67 121/67 10/11/21 19:20 70 108/57 L 10/11/21 19:00 67 115/65 10/11/21 18:42 66 123/75 10/11/21 18:00 65 10/11/21 14:10 36.6 C 66 16 120/75 11/19/21 13:28 66 10/11/21 10:36 36.5 C 71 20 10/11/21 10:08 70 16 10/11/21 10:03 71 16 10/11/21 09:58 71 16 10/11/21 09:53 70 16 10/11/21 09:48 71 16 10/11/21 09:43 67 16 10/11/21 09:38 68 16 10/11/21 09:33 68 16 10/11/21 09:29 68 16 10/11/21 08:48 36.6 C 62 22 BP Pulse Ox 10/11/21 20:00 10/11/21 19:40 10/11/21 19:20 10/11/21 19:00 10/11/21 18:42 10/11/21 18:00 10/11/21 14:10 93 10/11/21 13:28 121/69 10/11/21 10:36 118/72 94 10/11/21 10:08 134/69 92 10/11/21 10:03 129/68 92 10/11/21 09:58 131/70 92 10/11/21 09:53 130/65 92 10/11/21 09:48 126/69 90 10/11/21 09:43 124/70 97 10/11/21 09:38 129/71 98 10/11/21 09:33 136/68 97 10/11/21 09:29 113/54 L 98 10/11/21 08:48 126/67 100 PG Care Time/CCT Total # of Minutes Spent Total Time Spent with Patient: Total time spent is greater than 50% in coordination of care (as documented) at patient's floor/unit and/or counseling patient: Coding Level of Care Code 72163 Subseq Hosp Care Lvl 2 Diagnoses Acute exacerbation of CHF (congestive heart failure) I50.9 Heart failure type: unspecified CKD (chronic kidney disease) stage 4, GFR 15-29 ml/min N18.4 T2DM (type 2 diabetes mellitus) E11.9 Hypertension I10 Hypertension type: essential hypertension Atrial fibrillation I48.91 Atrial fibrillation type: unspecified Venous stasis ulcer of left lower extremity I83.029; L97.929 Hypothyroidism E03.9 Hypothyroidism type: acquired Supratherapeutic INR R79.1 Anemia D64.9 (1) Acute exacerbation of CHF (congestive heart failure) Heart failure type: unspecified Qualified Code(s): I50.9 - Heart failure, unspecified (2) Hypertension Hypertension type: essential hypertension Qualified Code(s): I10 - Essential (primary) hypertension (3) Atrial fibrillation Atrial fibrillation type: unspecified Qualified Code(s): I48.91 - Unspecified atrial fibrillation (4) Hypothyroidism Hypothyroidism type: acquired Qualified Code(s): E03.9 - Hypothyroidism, unspecified
[2021-10-11] MEDS: INSULIN HUMAN NPH SC SCH (21:37)
[2021-10-12] MEDS: LEVOTHYROXINE SODIUM 112 MCG TABLET PO SCH (06:43)
[2021-10-12] MEDS ORDERED: SODIUM CHLORIDE 0.9% 1000ML 1,000 ML IV PRN ×2 (07:00)
[2021-10-12] MEDS ORDERED: EPOETIN ALFA 10,000 UNITS/ML VIAL IV ONE (07:00)
[2021-10-12] MEDS: INSULIN ASPART 100 UNITS/ML 3 ML PEN SC SCH ×4 (08:30→20:13)
--- NOTE | 2021-10-12 11:16 | Dialysis Progress Note ---
Date of Service October 12, 2021 Assessment & Plan Admission and Anticipated Discharge Date Admission Date: October 03, 2021 Subjective Assessment & Plan Admission and Anticipated Discharge Date Admission Date: October 03, 2021 Subjective Subjective Assessment & Plan (1) Acute kidney injury: Plan: ATN on top of CKD 4/5. He is known to be CKD stage 4/5, with his serum creatinine in early to mid fours, and has been resistant to the idea of dialysis in the past. His numbers continue to get worse, but he looks he comfortable, urine output has also improved a lot more. has made decision about Dialysis now says " I dont want to and my Family--daughter and sister in law dont want me to ". This is not unexpected reaction as lot of patients do change their mind. He Can be a candidate for dialysis ( somewhat marginal) although with all medical problems not easy. had first dialysis yesterday and will do again today==3hr and take 2 kilo off. Still continue Diuretics though. Change to demadex 100 daily. CVC working fine. Updated manager of patient and primary team. Subjective Seen during Dialysis. tolerating fine. patient continues to diurese but still has lot of edema. Appears more comfortable today. Review of Systems Review of Systems: Bilateral pedal edema. In mild respiratory distress. Physical Exam Physical Exam: GENERAL: Elderly white male. On 4 6 L of oxygen HEENT: Mucous membrane is moist. NECK: Supple. Cannot assess JVD secondary to short, obese neck. CHEST: Bilateral decreased breath sounds, occasional crackles at the bases. CARDIOVASCULAR: S1 and S2, irregular. Soft systolic murmur heard. ABDOMEN: Soft, nontender, obese. EXTREMITIES: Shows right BKA and left has 2+ edema, but is bandaged. NEUROLOGIC: Awake, alert and oriented. Normal speech. Results & Data ([facility]) Vital Signs (Past 12 Hours) Vital Signs Temp Pulse Pulse Pulse Resp BP BP 10/12/21 10:00 64 115/64 10/12/21 09:40 65 123/63 10/12/21 09:27 37.0 C 67 10/12/21 07:02 37.0 C 62 20 118/67 10/12/21 07:00 62 10/12/21 03:37 36.8 C 60 20 113/68 10/11/21 23:39 36.9 C 62 20 117/65 Pulse Ox 10/12/21 10:00 10/12/21 09:40 10/12/21 09:27 10/12/21 07:02 95 10/12/21 07:00 10/12/21 03:37 97 10/11/21 23:39 99
[2021-10-12] MEDS: metOLazone 5 MG TABLET PO SCH (13:40)
[2021-10-12] MEDS: OMEGA-3 (PURIFIED FISH OIL) 1 GM CAP PO SCH (13:41)
[2021-10-12] MEDS: DOCUSATE SODIUM/SENNA 50/8.6MG TAB PO SCH (13:41)
[2021-10-12] MEDS: CHOLECALCIFEROL 1,000 UNITS 25 MCG TAB PO SCH (13:41)
[2021-10-12] MEDS: FENOFIBRATE NANOCRYSTALLIZED 48 MG TABLET PO SCH (13:41)
[2021-10-12] MEDS: AMIODARONE 200 MG TAB PO SCH ×2 (13:42→20:08)
[2021-10-12] MEDS: ATORVASTATIN 10 MG TAB PO SCH (13:42)
[2021-10-12] MEDS: ASCORBIC ACID 500 MG TAB PO SCH (13:42)
[2021-10-12] MEDS: allopurinoL 300 MG TAB PO SCH (13:42)
[2021-10-12] MEDS: ISOSORBIDE DINITRATE 20 MG TAB PO SCH ×3 (13:44→17:14)
[2021-10-12] MEDS: BUMETANIDE 4 MG in SYRINGE 0 ML IV SCH ×2 (13:44→17:14)
[2021-10-12] MEDS: INSULIN HUMAN NPH SC SCH ×2 (14:07→20:12)
[2021-10-12] MEDS: POLYETHYLENE (MIRALAX) 17 GM PACK PO SCH ×2 (14:08→20:10)
[2021-10-12] MEDS: hydrALAZINE TAB 50 MG TAB PO SCH ×2 (14:10→20:09)
[2021-10-12] MEDS: METOPROLOL TARTRATE 50 MG TAB PO SCH ×2 (14:10→20:09)
[2021-10-12] MEDS: WARFARIN SOD 3 MG TAB PO SCH (17:09)
[2021-10-12] MEDS ORDERED: COUGH DROP (SUGAR FREE) LOZ 24 LOZ/1 BOX BUCCAL ONE (21:09)
[2021-10-12] MEDS ORDERED: COUGH DROP (SUGAR FREE) LOZ 24 LOZ/1 BOX BUCCAL STA (21:12)
--- NOTE | 2021-10-12 22:09 | Hospitalist Progress Note ---
Date of Service October 12, 2021 Assessment & Plan (1) Acute exacerbation of CHF (congestive heart failure): Plan: 75yo Male PMH CHF DM2 CKD IV afib on warfarin, CAD HTN HLD ICD placement chronic venous stasis here for SOB. Acute on chronic HFrEF continue Bumex 2mg IV BID, Cr stable at 5 educated patient on the need to avoid sodium, weight daily, fluid restriction brought up the idea of dialysis, refuses to consider this stable on 4L NC, negative fluid balance of a little over a liter appreciate cardiology consult and nephrology consult CKD IV - Cr essentially unchanged, it is 5.0 -nephrology consult: patient needs to think about HD, approaching time when diuretics will not work -continue bumex 2mg IV in ED K is stable he said he would not want HD, "that is no way to live, my sister had it and she hated it" I will consult palliative to see patient, explained he will need hospice when his kidneys do not respond, which could be soon On 10/10 patient reports that he is agreeable to dialysis. will get permacath today (10/11) This will delay discharge as he may require a SNF that has dialysis services. Supratherapeutic INR -INR 9.5 on admission (was taking too much at home, was not checking with PCP) INR 2.4 from 1.8 after resuming Coumadin 5mg daily reduce Coumadin to 3mg daily check INR: therapeutic Anemia -Hbg 7.3, has not really changed in 3 days -possibly 2/2 to fluid overload status -no melena, continue to monitor - would not transfuse as he is already volume overloaded, BP stable DM2 -glycemic consult placed -regulator inspector consulted -07/2021 A1c 9.3 monitor for hypoglycemia, no episodes HTN -continue hydralzine 50mg BID -continue metoprolol tartrate 50mg BID -torsemide on hold -received bumex 2mg IV in ED Atrial Fibrillation -EKG = atrial sensed ventricular paced rhythm -INR 2.4, Coumadin 3mg daily -patient has ICD and pacer -continue amiodarone 200mg BID -continue metoprolol tartrate 50mg BID -cardiology consulted Hx Ventricular Fibrillation -monitor on tele -cont amiodarone Venous stasis of LLE -order compression stockings, leg elevation -DVT unlikely given his home warfarin HLD -continue fenofibrate 48mg -continue atorvastatin 10mg Gout -continue allopurinol 300mg Hypothyroidism -continue levothyroxine 112 mcg -12/2020 TSH 3.51 - Constipation: Miralax BID FENa: heart healthy carb consistent low sodium fluid restriction 1500ml Code Status: conditional, DNR, ok for intubation in a respiratory arrest DVT PPX: INR 2.6 PT/OT: ordered (2) CKD (chronic kidney disease) stage 4, GFR 15-29 ml/min: (3) T2DM (type 2 diabetes mellitus): (4) Hypertension: (5) Atrial fibrillation: (6) Venous stasis ulcer of left lower extremity: (7) Hypothyroidism: (8) Supratherapeutic INR: (9) Anemia: Admission and Anticipated Discharge Date Admission Date: October 03, 2021 Subjective Patient is a 75 yo male. Reports no new symptoms. Review of Systems Review of Systems: All systems reviewed & are unremarkable except as noted in HPI & below Physical Exam Physical Exam: General: well developed, well nourished, no acute distress, obese male, comfortable Neck: supple, trachea midline, normal thyroid Lungs: crackles in bases, normal respiratory effort, no accessory muscle use, no distress Heart: regular S1 and S2, no murmur, peripheral pulses normal, capillary refill normal, 2+ pitting edema in legs and abdomen Abdomen: soft, NT, ND, + BS, no hepatomegaly, normal to percussion Extremities: right leg BKA, no cyanosis, no petechiae, strength is 5/5 bilaterally Neuro: awake, cooperative, moves all extremities, no focal motor deficits, CN II-XII intact, sensation in extremities intact, normal speech Skin: warm, dry, no rash, normal turgor Psych: Awake, alert oriented x 3, euthymic affect Results & Data Results & Data ([facility]) Vital Signs (Past 12 Hours) Vital Signs Temp Pulse Pulse Resp BP BP BP 10/12/21 19:35 36.6 C 74 20 123/68 10/12/21 15:12 36.8 C 79 20 122/61 10/12/21 15:01 68 10/12/21 13:36 36.5 C 67 18 128/68 10/12/21 12:50 36.9 C 63 120/65 10/12/21 12:20 63 118/62 10/12/21 12:00 63 120/75 10/12/21 11:40 63 115/63 10/12/21 11:20 64 96/55 L 10/12/21 11:00 64 127/63 10/12/21 10:40 62 115/58 L 10/12/21 10:20 62 120/62 Pulse Ox 10/12/21 19:35 97 10/12/21 15:12 94 10/12/21 15:01 10/12/21 13:36 99 10/12/21 12:50 10/12/21 12:20 10/12/21 12:00 10/12/21 11:40 10/12/21 11:20 10/12/21 11:00 10/12/21 10:40 10/12/21 10:20 PG Care Time/CCT Total # of Minutes Spent Total Time Spent with Patient: Total time spent is greater than 50% in coordination of care (as documented) at patient's floor/unit and/or counseling patient: Coding Level of Care Code 46416 Subseq Hosp Care Lvl 1 Diagnoses Acute exacerbation of CHF (congestive heart failure) I50.9 Heart failure type: unspecified CKD (chronic kidney disease) stage 4, GFR 15-29 ml/min N18.4 T2DM (type 2 diabetes mellitus) E11.9 Hypertension I10 Hypertension type: essential hypertension Atrial fibrillation I48.91 Atrial fibrillation type: unspecified Venous stasis ulcer of left lower extremity I83.029; L97.929 Hypothyroidism E03.9 Hypothyroidism type: acquired Supratherapeutic INR R79.1 Anemia D64.9 (1) Acute exacerbation of CHF (congestive heart failure) Heart failure type: unspecified Qualified Code(s): I50.9 - Heart failure, unspecified (2) Hypertension Hypertension type: essential hypertension Qualified Code(s): I10 - Essential (primary) hypertension (3) Atrial fibrillation Atrial fibrillation type: unspecified Qualified Code(s): I48.91 - Unspecified atrial fibrillation (4) Hypothyroidism Hypothyroidism type: acquired Qualified Code(s): E03.9 - Hypothyroidism, unspecified
[2021-10-13] MEDS: LEVOTHYROXINE SODIUM 112 MCG TABLET PO SCH (07:42)
[2021-10-13] MEDS: ISOSORBIDE DINITRATE 20 MG TAB PO SCH ×3 (07:42→17:26)
[2021-10-13] MEDS: INSULIN ASPART 100 UNITS/ML 3 ML PEN SC SCH ×4 (07:44→21:22)
[2021-10-13] MEDS: POLYETHYLENE (MIRALAX) 17 GM PACK PO SCH ×2 (08:26→21:19)
[2021-10-13] MEDS: CHOLECALCIFEROL 1,000 UNITS 25 MCG TAB PO SCH (08:27)
[2021-10-13] MEDS: allopurinoL 300 MG TAB PO SCH (08:27)
[2021-10-13] MEDS: ATORVASTATIN 10 MG TAB PO SCH (08:27)
[2021-10-13] MEDS: hydrALAZINE TAB 50 MG TAB PO SCH ×2 (08:27→21:20)
[2021-10-13] MEDS: FENOFIBRATE NANOCRYSTALLIZED 48 MG TABLET PO SCH (08:27)
[2021-10-13] MEDS: ASCORBIC ACID 500 MG TAB PO SCH (08:27)
[2021-10-13] MEDS: metOLazone 5 MG TABLET PO SCH (08:27)
[2021-10-13] MEDS: OMEGA-3 (PURIFIED FISH OIL) 1 GM CAP PO SCH (08:27)
[2021-10-13] MEDS: AMIODARONE 200 MG TAB PO SCH ×2 (08:27→21:20)
[2021-10-13] MEDS: BUMETANIDE 4 MG in SYRINGE 0 ML IV SCH (08:27)
[2021-10-13] MEDS: METOPROLOL TARTRATE 50 MG TAB PO SCH ×2 (08:27→21:20)
[2021-10-13] MEDS: INSULIN HUMAN NPH SC SCH ×2 (10:26→21:21)
[2021-10-13] MEDS: DOCUSATE SODIUM/SENNA 50/8.6MG TAB PO SCH (10:28)
[2021-10-13 12:21] LABS: BUN Creatinine Ratio 12.3 (10-20); Calcium 8.7 mg/dl (8.5-10.1); Est GFR (African American) 11.3 ml/min; Est GFR (Non-African American) 9.7 ml/min; Potassium 4.2 mmol/L (3.5-5.1)
--- NOTE | 2021-10-13 15:08 | Nephrology Progress Note ---
Date of Service October 13, 2021 Assessment & Plan Admission and Anticipated Discharge Date Admission Date: October 03, 2021 Subjective Assessment & Plan (1) Acute kidney injury: Plan: ATN on top of CKD 4/5. He is known to be CKD stage 4/5, with his serum creatinine in early to mid fours, and has been resistant to the idea of dialysis in the past. His numbers continue to get worse, but he looks he comfortable, urine output has also improved a lot more. has made decision about Dialysis now says " I dont want to and my Family--daughter and sister in law dont want me to ". This is not unexpected reaction as lot of patients do change their mind. He Can be a candidate for dialysis ( somewhat marginal) although with all medical problems not easy. had 2 sessions of dialysis without problems. CVC worked well. And will do again tomorrow==3hr and take 2 kilo off. Still continue Diuretics though. Change to demadex 100 daily. Will use epo and heparin from now Updated fuel manager and primary team. Placement pending but likely will be SNF/rehab Subjective Seen during Dialysis. tolerating fine. patient continues to diurese but still has lot of edema. Appears more comfortable today. Review of Systems Review of Systems: Bilateral pedal edema. In mild respiratory distress. Physical Exam Physical Exam: GENERAL: Elderly white male. On 4 6 L of oxygen HEENT: Mucous membrane is moist. NECK: Supple. Cannot assess JVD secondary to short, obese neck. CHEST: Bilateral decreased breath sounds, occasional crackles at the bases. CARDIOVASCULAR: S1 and S2, irregular. Soft systolic murmur heard. ABDOMEN: Soft, nontender, obese. EXTREMITIES: Shows right BKA and left has trace edema now NEUROLOGIC: Awake, alert and oriented. Normal speech. Results & Data ([facility]) Vital Signs (Past 12 Hours) Vital Signs Temp Pulse Pulse Pulse Pulse Resp BP 10/13/21 10:50 36.7 C 65 20 10/13/21 07:46 36.5 C 66 18 120/65 10/13/21 07:41 63 10/13/21 03:51 36.4 C L 62 18 104/55 L BP Pulse Ox 10/13/21 10:50 129/64 93 10/13/21 07:46 99 10/13/21 07:41 10/13/21 03:51 97
[2021-10-13] MEDS: TORSEMIDE 100 MG TAB PO SCH (17:26)
[2021-10-13] MEDS: WARFARIN SOD 3 MG TAB PO SCH (17:26)
--- NOTE | 2021-10-13 20:49 | Hospitalist Progress Note ---
Date of Service October 13, 2021 Assessment & Plan (1) Acute exacerbation of CHF (congestive heart failure): Plan: 75yo Male PMH CHF DM2 CKD IV afib on warfarin, CAD HTN HLD ICD placement chronic venous stasis here for SOB. Acute on chronic HFrEF Appears stable. Patient ultimately decided to undergo Hemodialysis as he did not want to . Patient has now started hemodialysis after perm cath insertion on 10/11. Diuretics will be continued but will be switched to torsemide. electrolytes reviewed and at goal. educated patient on the need to avoid sodium, weight daily, fluid restriction brought up the idea of dialysis, refuses to consider this stable on 4L NC, negative fluid balance of a little over a liter appreciate cardiology consult and nephrology consult CKD IV - Cr essentially unchanged, it is 5.0 -nephrology consult: Hemodialysis as above. This will delay discharge as he will require a SNF that has dialysis services. Supratherapeutic INR -INR 9.5 on admission (was taking too much at home, was not checking with PCP) INR 2.4 from 1.8 after resuming Coumadin 5mg daily reduce Coumadin to 3mg daily, he did miss a dose on day of permacath insertion. INR: therapeutic even if subtherapeutic on Thursday, would recommend 3 mg at discharge daily. Anemia -Hbg 7.8, has not really changed in 3 days -possibly 2/2 to fluid overload status -no melena, continue to monitor - would not transfuse as he is already volume overloaded, BP stable DM2 -glycemic consult placed -recoating machine operator consulted -07/2021 A1c 9.3 monitor for hypoglycemia, no episodes HTN -continue hydralzine 50mg BID -continue metoprolol tartrate 50mg BID -torsemide on hold -received bumex 2mg IV in ED Atrial Fibrillation -EKG = atrial sensed ventricular paced rhythm -INR 2.4, Coumadin 3mg daily -patient has ICD and pacer -continue amiodarone 200mg BID -continue metoprolol tartrate 50mg BID -cardiology consulted Hx Ventricular Fibrillation -monitor on tele -cont amiodarone Venous stasis of LLE -order compression stockings, leg elevation -DVT unlikely given his home warfarin HLD -continue fenofibrate 48mg -continue atorvastatin 10mg Gout -continue allopurinol 300mg Hypothyroidism -continue levothyroxine 112 mcg -12/2020 TSH 3.51 - Constipation: Miralax BID FENa: heart healthy carb consistent low sodium fluid restriction 1500ml Code Status: conditional, DNR, ok for intubation in a respiratory arrest DVT PPX: coumadin PT/OT: ordered (2) CKD (chronic kidney disease) stage 4, GFR 15-29 ml/min: (3) T2DM (type 2 diabetes mellitus): (4) Hypertension: (5) Atrial fibrillation: (6) Venous stasis ulcer of left lower extremity: (7) Hypothyroidism: (8) Supratherapeutic INR: (9) Anemia: Admission and Anticipated Discharge Date Admission Date: October 03, 2021 Subjective Patient reports that he is tolerating his hemodialysis. He is hoping that his next session is under 4 hours. Review of Systems Review of Systems: All systems reviewed & are unremarkable except as noted in HPI & below Physical Exam Physical Exam: General: well developed, well nourished, no acute distress, obese male, comfortable Neck: supple, trachea midline, normal thyroid Lungs: crackles in bases, normal respiratory effort, no accessory muscle use, no distress Heart: regular S1 and S2, no murmur, peripheral pulses normal, capillary refill normal, 2+ pitting edema in legs and abdomen Abdomen: soft, NT, ND, + BS, no hepatomegaly, normal to percussion Extremities: right leg BKA, no cyanosis, no petechiae, strength is 5/5 bilaterally Neuro: awake, cooperative, moves all extremities, no focal motor deficits, CN II-XII intact, sensation in extremities intact, normal speech Skin: warm, dry, no rash, normal turgor Psych: Awake, alert oriented x 3, euthymic affect Results & Data Results & Data ([facility]) Vital Signs (Past 12 Hours) Vital Signs Temp Pulse Resp BP Pulse Ox 10/13/21 15:12 36.6 C 68 18 145/71 H 94 10/13/21 10:50 36.7 C 65 20 129/64 93 PG Care Time/CCT Total # of Minutes Spent Total Time Spent with Patient: Total time spent is greater than 50% in coordination of care (as documented) at patient's floor/unit and/or counseling patient: Coding Level of Care Code 39717 Subseq Hosp Care Lvl 2 Diagnoses Acute exacerbation of CHF (congestive heart failure) I50.9 Heart failure type: unspecified CKD (chronic kidney disease) stage 4, GFR 15-29 ml/min N18.4 T2DM (type 2 diabetes mellitus) E11.9 Hypertension I10 Hypertension type: essential hypertension Atrial fibrillation I48.91 Atrial fibrillation type: unspecified Venous stasis ulcer of left lower extremity I83.029; L97.929 Hypothyroidism E03.9 Hypothyroidism type: acquired Supratherapeutic INR R79.1 Anemia D64.9 Time Spent (min) 25 (1) Acute exacerbation of CHF (congestive heart failure) Heart failure type: unspecified Qualified Code(s): I50.9 - Heart failure, unspecified (2) Hypertension Hypertension type: essential hypertension Qualified Code(s): I10 - Essential (primary) hypertension (3) Atrial fibrillation Atrial fibrillation type: unspecified Qualified Code(s): I48.91 - Unspecified atrial fibrillation (4) Hypothyroidism Hypothyroidism type: acquired Qualified Code(s): E03.9 - Hypothyroidism, unspecified
[2021-10-14] MEDS: LEVOTHYROXINE SODIUM 112 MCG TABLET PO SCH (05:39)
[2021-10-14 06:49] LABS: Hematocrit (blood only) 26.8 % (42-52); Mean Corpuscular Hemoglobin 28.1 pg (25-34); Mean Corpuscular Hgb Conc 29.9 g/dL (32-36); Mean Platelet Volume 9.7 fL (7.4-10.4); Platelet Count 333 K/uL (130-400); RDW Standard Deviation 59.1 fL (36.4-46.3); Red Blood Count 2.85 M/uL (4.7-6.1); White Blood Count 9.97 K/uL (4.8-10.8)
[2021-10-14] MEDS ORDERED: SODIUM CHLORIDE 0.9% 1000ML 1,000 ML IV PRN (07:00)
[2021-10-14] MEDS ORDERED: EPOETIN ALFA 10,000 UNITS/ML VIAL IV SCH (07:00)
[2021-10-14] MEDS ORDERED: IRON SUCROSE 200 MG in SYRINGE 0 ML IV SCH (07:00)
[2021-10-14] MEDS ORDERED: HEPARIN SOD (PORCINE) 1000 UNIT/ML IV SCH (07:00)
[2021-10-14 07:01] LABS: INR 1.5 (0.9-1.1); Prothrombin Time 15.1 Seconds (9.0-12.0)
[2021-10-14 07:30] LABS: BUN Creatinine Ratio 12.7 (10-20); Calcium 9.7 mg/dl (8.5-10.1); Est GFR (African American) 8.8 ml/min; Est GFR (Non-African American) 7.6 ml/min; Potassium 4.4 mmol/L (3.5-5.1)
--- NOTE | 2021-10-14 08:00 | Pharmacy Report ---
Pharmacy Glycemic Short Note 2 - Date of Service October 14, 2021 - Glycemic Short BSG Results (Last 24 hours): 10/13/21 10/13/21 10/13/21 11:41 12:24 17:46 Glucose 290 H POC Glucose 283 H 152 H 10/13/21 10/14/21 10/14/21 20:21 06:22 07:32 Glucose 175 H POC Glucose 193 H 185 H OUTPATIENT ANTIDIABETIC REGIMEN: * Novolog mix 70/30 100 units SQ qam, 90 units SQ qpm ASSESSMENT: 10/14/21: * 3rd HD session planned for today (3 hr). Patients often require a sharp decrease in insulin at initiation of HD, although this does not seem to be the case for Mr. Warren based on the trends from the initial two HD sessions * Will keep regimen the same for now, but may need to loosen/decrease insulin if BSG's decrease 10/11/21: * Patient received total of 80 units of insulin yesterday, of which 40 units were NPH * Fasting BSG 137 mg/dL - NPO for perm cath placement. Held AM NPH dose - Not clear when they will start dialysis * Plan to resume NPH again tonight * May need to adjusting dosing tomorrow if HD planned 10/07/21: * Mr Warren has been receiving ~60 units of insulin daily for the past several days, with relatively well-controlled BSGs. * Pt is still not open to dialysis. Palliative consult is in place. * No changes to insulin regimen required at this time. PLAN FOR INPATIENT GLYCEMIC CONTROL: * Hold outpatient oral diabetes medications * Basal insulin * NPH 20 units SQ BID * Bolus insulin * NovoLog per scale ACHS or Q6hrs while NPO * Goal Range: Low 110 mg/dL - High 140 mg/dL * Correction Factor: 20 mg/dL/unit * Carb ratio: 6 g CHO/unit with breakfast, 7 g CHO/unit lunch, dinner, bedtime PLAN FOR DISCHARGE: * A1c is unreliable secondary to CKD and altered RBC turnover rate. If patient is experiencing hypoglycemia as an outpatient recommend decreasing outpatient insulin doses as outpatient doses are significantly higher than inpatient dosing. * Patient may require further adjustment based on how significantly initiation of HD affects insulin sensitivity (dose adjustments down are sometimes required due to increased insulin sensitivity)
[2021-10-14] MEDS: CHOLECALCIFEROL 1,000 UNITS 25 MCG TAB PO SCH (08:16)
[2021-10-14] MEDS: metOLazone 5 MG TABLET PO SCH (08:16)
[2021-10-14] MEDS: allopurinoL 300 MG TAB PO SCH (08:16)
[2021-10-14] MEDS: FENOFIBRATE NANOCRYSTALLIZED 48 MG TABLET PO SCH (08:17)
[2021-10-14] MEDS: ASCORBIC ACID 500 MG TAB PO SCH (08:17)
[2021-10-14] MEDS: POLYETHYLENE (MIRALAX) 17 GM PACK PO SCH ×2 (08:18→20:20)
[2021-10-14] MEDS: OMEGA-3 (PURIFIED FISH OIL) 1 GM CAP PO SCH (08:18)
[2021-10-14] MEDS: ATORVASTATIN 10 MG TAB PO SCH (08:18)
[2021-10-14] MEDS: TORSEMIDE 100 MG TAB PO SCH (08:18)
[2021-10-14] MEDS: INSULIN HUMAN NPH SC SCH ×2 (08:19→20:31)
[2021-10-14] MEDS: INSULIN ASPART 100 UNITS/ML 3 ML PEN SC SCH ×4 (08:28→20:32)
[2021-10-14] MEDS: HEPARIN SOD (PORCINE) 1000 UNIT/ML IV SCH (10:15)
[2021-10-14] MEDS: AMIODARONE 200 MG TAB PO SCH ×2 (13:20→20:25)
[2021-10-14] MEDS: ISOSORBIDE DINITRATE 20 MG TAB PO SCH ×3 (13:20→18:01)
[2021-10-14] MEDS: METOPROLOL TARTRATE 50 MG TAB PO SCH ×2 (13:21→20:26)
[2021-10-14] MEDS: DOCUSATE SODIUM/SENNA 50/8.6MG TAB PO SCH (13:21)
[2021-10-14] MEDS: hydrALAZINE TAB 50 MG TAB PO SCH ×2 (13:21→20:25)
[2021-10-14] MEDS: WARFARIN SOD 3 MG TAB PO SCH (16:18)
--- NOTE | 2021-10-14 18:01 | Hospitalist Progress Note ---
Date of Service October 14, 2021 Assessment & Plan (1) Acute exacerbation of CHF (congestive heart failure): Plan: 75yo Male PMH CHF DM2 CKD IV afib on warfarin, CAD HTN HLD ICD placement chronic venous stasis here for SOB. Acute on chronic HFrEF - Appears this is likely an acute decompensation in the setting of worsening renal function - Remains on supplemental O2 and will wean as tolerated - feels SOB is only present with exertion (family also states he doesn't move much so suspect some may be deconditioning) - Has completed HD x 3 sessions and tolerating - negative 11 L total per I&Os - Cardiology following - no change in recommendation - following diuretics as guided by nephrology Acute Kidney Injury/Suspect ATN Superimposed on CKD IV - Now End Stage with HD Initiated - Ultimately agreed to HD and currently tolerating; S/P perm cath insertion on 10/11 - Continue Torsemide 100 mg daily and Metolazone 5 mg daily - will discuss with Nephro to determine outpatient diuretic use - Appreciate nephrology consultation Atrial Fibrillation on Warfarin with Supratherapeutic INR - Has ICD/Pacer; H/O Ventricular Fibrillation -INR 9.5 on admission (was taking too much at home, was not checking with PCP) -- INR now subtherapeutic - will continue Coumadin 3 mg daily and monitor INR - Continue Amiodarone 200 mg BID; Metoprolol 50 mg BID Anemia - Hgb at 8 and relatively stable - Vitals are stable - no indication for transfusion at this time; receiving Venofer with HD DM2 -glycemic consult placed -sock knitting machine operator consulted -07/2021 A1c 9.3 HTN - STABLE -continue hydralazine 50mg BID -continue metoprolol tartrate 50mg BID Venous stasis of LLE - order compression stockings, leg elevation HLD -continue fenofibrate 48mg -continue atorvastatin 10mg Gout -continue allopurinol 300mg Hypothyroidism -continue levothyroxine 112 mcg -12/2020 TSH 3.51 - Constipation: Miralax BID Plan: - Awaiting rehab and dialysis arrangements - Discussed with sister over the phone (2) CKD (chronic kidney disease) stage 4, GFR 15-29 ml/min: (3) T2DM (type 2 diabetes mellitus): (4) Hypertension: (5) Atrial fibrillation: (6) Venous stasis ulcer of left lower extremity: (7) Hypothyroidism: (8) Supratherapeutic INR: (9) Anemia: Admission and Anticipated Discharge Date Admission Date: October 03, 2021 Subjective Reports feeling overall well. Reports no SOB at rest but easily fatigued and gets SOB with ambulation. Still on supplemental O2. So far tolerating dialysis but states its just tiring to lay there for hours. Getting restless in the hospital as he would like to even just walk around. He is tolerating a diet without issue. Verbalizes no new complaints Review of Systems Review of Systems: All systems reviewed & are unremarkable except as noted in Subjective Physical Exam Physical Exam: PHYSICAL EXAM General Appearance: Chronically ill appearing in NAD who is A&O x 3 HEENT: Head is normocephalic/atraumatic; Hearing grossly intact; Mucous membranes moist Neck: Supple; Trachea midline; Neg JVD Heart: RRR with murmur Lungs: CTA in all lung olivera bilaterally but diminished; Respirations unlabored; Neg accessory muscle use Abdomen: Soft, non-tender, non-distended; Positive BS x 4 quadrants Extremities: Neg cyanosis; R BKA; + edema Neurological: Speech clear; Gross motor/sensory function intact; Neg focal neurologic deficits Psychiatric: Appropriate mood/affect Skin: Normal Color; Warm/Dry Results & Data Results & Data ([facility]) Vital Signs (Past 12 Hours) Vital Signs Temp Pulse Pulse Pulse Pulse Resp BP 10/14/21 15:14 36.8 C 74 18 10/14/21 13:11 36.8 C 67 18 10/14/21 12:10 36.5 C 68 10/14/21 12:07 67 125/68 10/14/21 12:00 68 121/66 10/14/21 11:40 67 128/68 10/14/21 11:20 69 135/70 10/14/21 11:00 69 126/64 10/14/21 10:40 70 125/64 10/14/21 10:20 67 123/63 10/14/21 10:00 68 127/63 10/14/21 09:40 68 121/60 10/14/21 09:20 66 112/60 10/14/21 09:07 63 118/68 10/14/21 09:00 36.5 C 64 64 10/14/21 07:39 36.4 C L 62 20 BP BP Pulse Ox 10/14/21 15:14 126/64 95 10/14/21 13:11 118/66 90 10/14/21 12:10 128/62 10/14/21 12:07 10/14/21 12:00 10/14/21 11:40 10/14/21 11:20 10/14/21 11:00 10/14/21 10:40 10/14/21 10:20 10/14/21 10:00 10/14/21 09:40 10/14/21 09:20 10/14/21 09:07 10/14/21 09:00 10/14/21 07:39 122/69 94 PG Care Time/CCT Total # of Minutes Spent Total Time Spent with Patient: Total time spent is greater than 50% in coordination of care (as documented) at patient's floor/unit and/or counseling patient: Coding Level of Care Code 42425 Subseq Hosp Care Lvl 3 Diagnoses Acute exacerbation of CHF (congestive heart failure) I50.9 Heart failure type: unspecified CKD (chronic kidney disease) stage 4, GFR 15-29 ml/min N18.4 T2DM (type 2 diabetes mellitus) E11.9 Hypertension I10 Hypertension type: essential hypertension Atrial fibrillation I48.91 Atrial fibrillation type: unspecified Venous stasis ulcer of left lower extremity I83.029; L97.929 Hypothyroidism E03.9 Hypothyroidism type: acquired Supratherapeutic INR R79.1 Anemia D64.9 (1) Acute exacerbation of CHF (congestive heart failure) Heart failure type: unspecified Qualified Code(s): I50.9 - Heart failure, unspecified (2) Atrial fibrillation Atrial fibrillation type: unspecified Qualified Code(s): I48.91 - Unspecified atrial fibrillation (3) Hypothyroidism Hypothyroidism type: acquired Qualified Code(s): E03.9 - Hypothyroidism, unspecified (4) Hypertension Hypertension type: essential hypertension Qualified Code(s): I10 - Essential (primary) hypertension
--- NOTE | 2021-10-14 19:17 | Dialysis Progress Note ---
Date of Service October 14, 2021 Assessment & Plan (1) Acute kidney injury: Plan: -Secondary to fluid overload >> now ESRD, with new start to dialysis he is known to be CKD stage 4/5, with his serum creatinine in early to mid fours, and has been resistant to the idea of dialysis in the past but changed his mind and started here. Today for 3rd tx w/ HD; tolerated 2.5L HD; was tolerating tx well when I saw him chemistries ok -getting IV iron -daily bmp, hgb -cotninue torsemide, metolazone current doses -awaiting bed at [facility] -next HD on 10/16 or as clinical needs dictate -cotn low sodium diet, 1.5L FR -CXR ordered for tomorrow Admission and Anticipated Discharge Date Admission Date: October 03, 2021 Subjective seen on dialysis at 1105 this am; tolerating treatment. remains on 02 -denies sob or cough; no edema, no n/v; awaiting bed at [facility] Review of Systems Review of Systems: All systems reviewed & are unremarkable except as noted in Subjective Physical Exam Constitutional: well developed and well nourished Eyes: EOM intact bilaterally ENMT: Ears: no external ear abnormality Nose: no external nose abnormality Mouth: + dry oral mucous membranes Neck: no nuchal rigidity Respiratory: normal respiratory effort Auscultation: + diminished lung sounds Cardiovascular: Rate/Rhythm: regular rate and regular rhythm Extremities: no edema Gastrointestinal (Abdomen): Inspection/Auscultation: normal bowel sounds Percussion/Palpation: abdomen soft; abdomen nontender Musculoskeletal: Extremities: strength 5/5 throughout and + leg length discrepancy (R BKA) Skin: no rashes, warm and dry Neurologic: gregory, fluent speech, no tremor Psychiatric: Orientation: alert and oriented x 3 Results & Data ([facility]) Vital Signs (Past 12 Hours) Vital Signs Temp Pulse Pulse Pulse Pulse Resp BP 10/14/21 18:05 73 10/14/21 15:14 36.8 C 74 18 10/14/21 13:11 36.8 C 67 18 10/14/21 12:10 36.5 C 68 10/14/21 12:07 67 125/68 10/14/21 12:00 68 121/66 10/14/21 11:40 67 128/68 10/14/21 11:20 69 135/70 10/14/21 11:00 69 126/64 10/14/21 10:40 70 125/64 10/14/21 10:20 67 123/63 10/14/21 10:00 68 127/63 10/14/21 09:40 68 121/60 10/14/21 09:20 66 112/60 10/14/21 09:07 63 118/68 10/14/21 09:00 36.5 C 64 64 10/14/21 07:39 36.4 C L 62 20 BP BP Pulse Ox 10/14/21 18:05 128/63 10/14/21 15:14 126/64 95 10/14/21 13:11 118/66 90 10/14/21 12:10 128/62 10/14/21 12:07 10/14/21 12:00 10/14/21 11:40 10/14/21 11:20 10/14/21 11:00 10/14/21 10:40 10/14/21 10:20 10/14/21 10:00 10/14/21 09:40 10/14/21 09:20 10/14/21 09:07 10/14/21 09:00 10/14/21 07:39 122/69 94 Laboratory Results 10/14/21 06:22 10/14/21 06:22
[2021-10-15] MEDS: ISOSORBIDE DINITRATE 20 MG TAB PO SCH ×3 (06:19→18:17)
[2021-10-15] MEDS: LEVOTHYROXINE SODIUM 112 MCG TABLET PO SCH (06:19)
[2021-10-15 09:12] LABS: INR 1.7 (0.9-1.1); Prothrombin Time 16.7 Seconds (9.0-12.0)
[2021-10-15 09:47] LABS: BUN Creatinine Ratio 9.8 (10-20); Calcium 9.4 mg/dl (8.5-10.1); Creatinine Clr Calc Pharmacy 14.9 ml/min; Est GFR (African American) 10.3 ml/min; Est GFR (Non-African American) 8.9 ml/min; Potassium 4.3 mmol/L (3.5-5.1)
[2021-10-15] MEDS: INSULIN ASPART 100 UNITS/ML 3 ML PEN SC SCH ×4 (09:56→20:51)
[2021-10-15] MEDS: INSULIN HUMAN NPH SC SCH ×2 (09:57→20:51)
[2021-10-15] MEDS: metOLazone 5 MG TABLET PO SCH (10:11)
[2021-10-15] MEDS: POLYETHYLENE (MIRALAX) 17 GM PACK PO SCH ×2 (10:11→20:50)
[2021-10-15] MEDS: ATORVASTATIN 10 MG TAB PO SCH (10:11)
[2021-10-15] MEDS: TORSEMIDE 100 MG TAB PO SCH (10:11)
[2021-10-15] MEDS: DOCUSATE SODIUM/SENNA 50/8.6MG TAB PO SCH (10:11)
[2021-10-15] MEDS: METOPROLOL TARTRATE 50 MG TAB PO SCH ×2 (10:11→20:54)
[2021-10-15] MEDS: AMIODARONE 200 MG TAB PO SCH ×2 (10:11→20:49)
[2021-10-15] MEDS: hydrALAZINE TAB 50 MG TAB PO SCH ×2 (10:11→20:53)
[2021-10-15] MEDS: ASCORBIC ACID 500 MG TAB PO SCH (10:12)
[2021-10-15] MEDS: allopurinoL 300 MG TAB PO SCH (10:12)
[2021-10-15] MEDS: CHOLECALCIFEROL 1,000 UNITS 25 MCG TAB PO SCH (10:12)
[2021-10-15] MEDS: OMEGA-3 (PURIFIED FISH OIL) 1 GM CAP PO SCH (10:12)
[2021-10-15] MEDS: FENOFIBRATE NANOCRYSTALLIZED 48 MG TABLET PO SCH (10:12)
[2021-10-15] MEDS ORDERED: bisacodyL 10 MG SUPP PR PRN (12:28)
--- NOTE | 2021-10-15 12:45 | XRay Report ---
XR chest 1V portable CLINICAL HISTORY: SOB; CHF COMPARISON STUDY: Chest radiograph October 03, 2021. FINDINGS: Left subclavian pacer/AICD is in place. A dual lumen right internal jugular catheter has be en placed in the interim. There is no pneumothorax or pleural effusion. Cardiomegaly is unchanged. In terstitial thickening has improved. IMPRESSION: Mild interstitial pulmonary edema, improved since prior exam. ACT 112: Negative or not required by law. Electronically signed by: Nimesh Freire M.D. 10/15/2021 12:43 PM
--- NOTE | 2021-10-15 12:55 | Pharmacy Report ---
Pharmacy Glycemic Short Note 2 - Date of Service October 15, 2021 - Glycemic Short BSG Results (Last 24 hours): 10/14/21 10/14/21 10/15/21 17:36 20:28 08:04 Glucose POC Glucose 193 H 243 H 132 H 10/15/21 10/15/21 08:32 11:55 Glucose 123 H POC Glucose 225 H OUTPATIENT ANTIDIABETIC REGIMEN: * Novolog mix 70/30 100 units SQ qam, 90 units SQ qpm ASSESSMENT: 10/15/21 * Stressors stable * Post-prandial BSG's at dinner and HS yesterday and at lunch today were elevated. Will continue with uneven distribution of CHO ratio, but will tighten at breakfast, dinner, and HS. Will leave lunch 2nd hx of reduced BSG's at dinner when lunch CHO ratio was tighter. * AM fasting BSG in goal range - no change to NPH 10/14/21: * 3rd HD session planned for today (3 hr). Patients often require a sharp decrease in insulin at initiation of HD, although this does not seem to be the case for Mr. Warren based on the trends from the initial two HD sessions * Will keep regimen the same for now, but may need to loosen/decrease insulin if BSG's decrease 10/11/21: * Patient received total of 80 units of insulin yesterday, of which 40 units were NPH * Fasting BSG 137 mg/dL - NPO for perm cath placement. Held AM NPH dose - Not clear when they will start dialysis * Plan to resume NPH again tonight * May need to adjusting dosing tomorrow if HD planned PLAN FOR INPATIENT GLYCEMIC CONTROL: * Hold outpatient oral diabetes medications * Basal insulin * NPH 20 units SQ BID * Bolus insulin * NovoLog per scale ACHS or Q6hrs while NPO * Goal Range: Low 110 mg/dL - High 140 mg/dL * Correction Factor: 20 mg/dL/unit * Carb ratio: 5 g CHO/unit with breakfast, 7 g CHO/unit lunch, and 6 g CHO/unit dinner, bedtime PLAN FOR DISCHARGE: * A1c is unreliable secondary to CKD and altered RBC turnover rate. If patient is experiencing hypoglycemia as an outpatient recommend decreasing outpatient insulin doses as outpatient doses are significantly higher than inpatient dosing. * Patient may require further adjustment based on how significantly initiation of HD affects insulin sensitivity (dose adjustments down are sometimes required due to increased insulin sensitivity)
[2021-10-15] MEDS: WARFARIN SOD 3 MG TAB PO SCH (15:46)
[2021-10-15] MEDS ORDERED: INSULIN ASPART 100 UNITS/ML 3 ML PEN SC SCH (16:30)
--- NOTE | 2021-10-15 17:44 | Hospitalist Progress Note ---
Date of Service October 15, 2021 Assessment & Plan (1) Acute exacerbation of CHF (congestive heart failure): Plan: 75yo Male PMH CHF DM2 CKD IV afib on warfarin, CAD HTN HLD ICD placement chronic venous stasis here for SOB. Acute on chronic HFrEF - Appears this is likely an acute decompensation in the setting of worsening renal function - Remains on supplemental O2 and will wean as tolerated - feels SOB is only present with exertion (family also states he doesn't move much so suspect some may be deconditioning) -- Recommend saturations of 90 or better; given body habitus suspect hypoventilation syndrome and possibly PINKY. May benefit from outpatient testing as he does desaturate when sleeping -- Given the amiodarone and still requiring supplemental O2 after diuresis - possibly could be a component of interstitial pneumonitis? amiodarone levels are a reference lab so of little value currently - will discuss with [facility] to gather their thoughts - Has completed HD x 3 sessions and tolerating - next dialysis is tomorrow - plan for MWF - negative 11 L total per I&Os - Cardiology followed/sign off - no change in recommendation - following diuretics as guided by nephrology Acute Kidney Injury/Suspect ATN Superimposed on CKD IV - Now End Stage with HD Initiated - Ultimately agreed to HD and currently tolerating; S/P perm cath insertion on 10/11 - Continue Torsemide 100 mg daily and Metolazone 5 mg daily - will discuss with Nephro to determine outpatient diuretic use - Appreciate nephrology consultation Atrial Fibrillation on Warfarin with Supratherapeutic INR - Has ICD/Pacer; H/O Ventricular Fibrillation -INR 9.5 on admission (was taking too much at home, was not checking with PCP) -- INR now subtherapeutic - will continue Coumadin 3 mg daily and monitor INR - Continue Amiodarone 200 mg BID; Metoprolol 50 mg BID Anemia - Hgb at 8 and relatively stable - Vitals are stable - no indication for transfusion at this time; receiving Venofer with HD DM2 -glycemic consult placed -hands and dial inspector consulted -07/2021 A1c 9.3 HTN - STABLE -continue hydralazine 50mg BID -continue metoprolol tartrate 50mg BID Venous stasis of LLE - order compression stockings, leg elevation HLD -continue fenofibrate 48mg -continue atorvastatin 10mg Gout -continue allopurinol 300mg Hypothyroidism -continue levothyroxine 112 mcg -12/2020 TSH 3.51 - Constipation: Miralax BID; Suppository PRN; Senna Plan: - Awaiting rehab and dialysis arrangements - Discussed with sister over the phone on 10/14 (2) CKD (chronic kidney disease) stage 4, GFR 15-29 ml/min: (3) T2DM (type 2 diabetes mellitus): (4) Hypertension: (5) Atrial fibrillation: (6) Venous stasis ulcer of left lower extremity: (7) Hypothyroidism: (8) Supratherapeutic INR: (9) Anemia: Admission and Anticipated Discharge Date Admission Date: October 03, 2021 Subjective Reports doing well today. Denies SOB or edema. Did have a minor nose bleed of the L nares but stopped with direct pressure applied. Was sitting on the side of the bed without oxygen during my visit and stated he felt fine without it. Did try to wean him today but while sleeping he does desaturate which do suspect his may have some hypoventilation syndrome or sleep apnea. CXR shows mild interstitial thickening which is improved from prior XR. He is tolerating diet without issue. Verbalizes no new complaints Review of Systems Review of Systems: All systems reviewed & are unremarkable except as noted in Subjective Physical Exam Physical Exam: PHYSICAL EXAM General Appearance: Chronically ill appearing in NAD who is A&O x 3 HEENT: Head is normocephalic/atraumatic; Hearing grossly intact; Mucous membranes moist; some dried blood on mustache from L nare no active bleeding from nare during exam Neck: Supple; Trachea midline; Neg JVD Heart: RRR with murmur Lungs: CTA in all lung olivera bilaterally but diminished at bases; Respirations unlabored; Neg accessory muscle use Abdomen: Soft, non-tender, non-distended; Positive BS x 4 quadrants Extremities: Neg cyanosis; R BKA; + edema Neurological: Speech clear; Gross motor/sensory function intact; Neg focal neurologic deficits Psychiatric: Appropriate mood/affect Skin: Normal Color; Warm/Dry Results & Data Results & Data ([facility]) Vital Signs (Past 12 Hours) Vital Signs Temp Pulse Pulse Resp BP Pulse Ox 10/15/21 15:35 36.6 C 65 16 112/62 93 10/15/21 06:09 36.3 C L 63 22 123/67 98 PG Care Time/CCT Total # of Minutes Spent Total Time Spent with Patient: Total time spent is greater than 50% in coordination of care (as documented) at patient's floor/unit and/or counseling patient: Coding Level of Care Code 03294 Subseq Hosp Care Lvl 3 Diagnoses Acute exacerbation of CHF (congestive heart failure) I50.9 Heart failure type: unspecified CKD (chronic kidney disease) stage 4, GFR 15-29 ml/min N18.4 T2DM (type 2 diabetes mellitus) E11.9 Hypertension I10 Hypertension type: essential hypertension Atrial fibrillation I48.91 Atrial fibrillation type: unspecified Venous stasis ulcer of left lower extremity I83.029; L97.929 Hypothyroidism E03.9 Hypothyroidism type: acquired Supratherapeutic INR R79.1 Anemia D64.9 (1) Acute exacerbation of CHF (congestive heart failure) Heart failure type: unspecified Qualified Code(s): I50.9 - Heart failure, unspecified (2) Hypertension Hypertension type: essential hypertension Qualified Code(s): I10 - Essential (primary) hypertension (3) Atrial fibrillation Atrial fibrillation type: unspecified Qualified Code(s): I48.91 - Unspecified atrial fibrillation (4) Hypothyroidism Hypothyroidism type: acquired Qualified Code(s): E03.9 - Hypothyroidism, unspecified
[2021-10-16] MEDS: LEVOTHYROXINE SODIUM 112 MCG TABLET PO SCH (06:07)
[2021-10-16] MEDS: ISOSORBIDE DINITRATE 20 MG TAB PO SCH ×3 (06:07→18:42)
[2021-10-16 07:56] LABS: INR 1.6 (0.9-1.1)
[2021-10-16 08:18] LABS: BUN Creatinine Ratio 11.3 (10-20); Calcium 9.3 mg/dl (8.5-10.1); Creatinine Clr Calc Pharmacy 12.3 ml/min; Est GFR (African American) 8.2 ml/min; Est GFR (Non-African American) 7.1 ml/min; Potassium 4.5 mmol/L (3.5-5.1)
[2021-10-16] MEDS: DOCUSATE SODIUM/SENNA 50/8.6MG TAB PO SCH (08:38)
[2021-10-16] MEDS: POLYETHYLENE (MIRALAX) 17 GM PACK PO SCH ×2 (08:38→20:36)
[2021-10-16] MEDS: hydrALAZINE TAB 50 MG TAB PO SCH (08:39)
[2021-10-16] MEDS: METOPROLOL TARTRATE 50 MG TAB PO SCH ×2 (08:39→20:35)
[2021-10-16] MEDS: FENOFIBRATE NANOCRYSTALLIZED 48 MG TABLET PO SCH (08:39)
[2021-10-16] MEDS: CHOLECALCIFEROL 1,000 UNITS 25 MCG TAB PO SCH (08:39)
[2021-10-16] MEDS: allopurinoL 300 MG TAB PO SCH (08:39)
[2021-10-16] MEDS: OMEGA-3 (PURIFIED FISH OIL) 1 GM CAP PO SCH (08:39)
[2021-10-16] MEDS: metOLazone 5 MG TABLET PO SCH (08:39)
[2021-10-16] MEDS: ATORVASTATIN 10 MG TAB PO SCH (08:39)
[2021-10-16] MEDS: AMIODARONE 200 MG TAB PO SCH ×2 (08:39→20:35)
[2021-10-16] MEDS: TORSEMIDE 100 MG TAB PO SCH (08:39)
[2021-10-16] MEDS: ASCORBIC ACID 500 MG TAB PO SCH (08:39)
[2021-10-16] MEDS ORDERED: SODIUM CHLORIDE 0.9% 1000ML 1,000 ML IV PRN (09:09)
[2021-10-16] MEDS ORDERED: HEPARIN SOD (PORCINE) 1000 UNIT/ML IV SCH (09:15)
[2021-10-16] MEDS ORDERED: EPOETIN ALFA 20,000 UNITS/ML VIAL IV SCH (09:15)
[2021-10-16] MEDS: INSULIN HUMAN NPH SC SCH ×2 (09:33→21:55)
[2021-10-16] MEDS: INSULIN ASPART 100 UNITS/ML 3 ML PEN SC SCH ×4 (09:35→21:53)
--- NOTE | 2021-10-16 12:46 | Hospitalist Progress Note ---
Date of Service October 16, 2021 Assessment & Plan (1) Acute exacerbation of CHF (congestive heart failure): Plan: 75yo Male PMH CHF DM2 CKD IV afib on warfarin, CAD HTN HLD ICD placement chronic venous stasis here for SOB. Acute on chronic HFrEF - Appears this is likely an acute decompensation in the setting of worsening renal function - appearing rather euvolemic at this time - Remains on supplemental O2 and will wean as tolerated - feels SOB is only present with exertion (family also states he doesn't move much so suspect some may be deconditioning) -- Recommend saturations of 90 or better; given body habitus suspect hypoventilation syndrome and possibly PINKY. May benefit from outpatient testing as he does desaturate when sleeping -- Given the amiodarone and still requiring supplemental O2 after diuresis - possibly could be a component of interstitial pneumonitis? amiodarone levels are a reference lab so of little value currently. Could discuss with [facility] to gather their thoughts - Has completed HD x 3 initial sessions and tolerating - next dialysis today - plan for MWF - negative 12 L total per I&Os; down approx 24 lbs since admission - Cardiology followed/sign off - no change in recommendation - following diuretics as guided by nephrology Acute Kidney Injury/Suspect ATN Superimposed on CKD IV - Now End Stage with HD Initiated - Ultimately agreed to HD and currently tolerating; S/P perm cath insertion on 10/11 - Continue Torsemide 100 mg daily and Metolazone 5 mg daily - will need to discuss with Nephro to determine outpatient diuretic use - Appreciate nephrology consultation Atrial Fibrillation on Warfarin with Supratherapeutic INR - Has ICD/Pacer; H/O Ventricular Fibrillation - INR 9.5 on admission (was taking too much at home, was not checking with PCP) -- INR now subtherapeutic - will continue Coumadin 5 mg daily and monitor INR periodically - Continue Amiodarone 200 mg BID; Metoprolol 50 mg BID Anemia - Hgb at 8 and relatively stable - Vitals are stable - no indication for transfusion at this time; receiving Venofer with HD DM2 -glycemic consult placed -welding setter consulted -07/2021 A1c 9.3 HTN - STABLE - continue hydralazine 25 mg BID (reduced) - continue metoprolol tartrate 50mg BID Venous stasis of LLE - order compression stockings, leg elevation HLD -continue fenofibrate 48mg -continue atorvastatin 10mg Gout -continue allopurinol 300mg Hypothyroidism -continue levothyroxine 112 mcg -12/2020 TSH 3.51 - Constipation: Miralax BID; Suppository PRN; Senna Plan: - Awaiting rehab and dialysis arrangements - planning on [facility] and could go when able to accept. Sister mentioned about him going to assisted after [facility] for long-term care? - Discussed with sister over the phone on 10/14 and will call today (2) CKD (chronic kidney disease) stage 4, GFR 15-29 ml/min: (3) T2DM (type 2 diabetes mellitus): (4) Hypertension: (5) Atrial fibrillation: (6) Venous stasis ulcer of left lower extremity: (7) Hypothyroidism: (8) Supratherapeutic INR: (9) Anemia: Admission and Anticipated Discharge Date Admission Date: October 03, 2021 Subjective Reports feeling well today. Awaiting dialysis. Reports no shortness of breath currently. Tolerating a diet without issue. No further nose bleeds since yes terday Review of Systems Review of Systems: All systems reviewed & are unremarkable except as noted in Subjective Physical Exam Physical Exam: PHYSICAL EXAM General Appearance: Chronically ill appearing in NAD who is A&O x 3 HEENT: Head is normocephalic/atraumatic; Hearing grossly intact; Mucous membranes moist Neck: Supple; Trachea midline; Neg JVD Heart: RRR with murmur Lungs: CTA in all lung olivera bilaterally but diminished at bases; Respirations unlabored; Neg accessory muscle use Abdomen: Soft, non-tender, non-distended; Positive BS x 4 quadrants Extremities: Neg cyanosis; R BKA; Neg edema Neurological: Speech clear; Gross motor/sensory function intact; Neg focal neurologic deficits Psychiatric: Appropriate mood/affect Skin: Normal Color; Warm/Dry Results & Data Results & Data ([facility]) Vital Signs (Past 12 Hours) Vital Signs Temp Pulse Resp BP Pulse Ox 10/16/21 07:37 36.4 C L 63 20 116/65 96 PG Care Time/CCT Total # of Minutes Spent Total Time Spent with Patient: Total time spent is greater than 50% in coordination of care (as documented) at patient's floor/unit and/or counseling patient: Coding Level of Care Code 64949 Subseq Hosp Care Lvl 3 Diagnoses Acute exacerbation of CHF (congestive heart failure) I50.9 Heart failure type: unspecified CKD (chronic kidney disease) stage 4, GFR 15-29 ml/min N18.4 T2DM (type 2 diabetes mellitus) E11.9 Hypertension I10 Hypertension type: essential hypertension Atrial fibrillation I48.91 Atrial fibrillation type: unspecified Venous stasis ulcer of left lower extremity I83.029; L97.929 Hypothyroidism E03.9 Hypothyroidism type: acquired Supratherapeutic INR R79.1 Anemia D64.9 (1) Acute exacerbation of CHF (congestive heart failure) Heart failure type: unspecified Qualified Code(s): I50.9 - Heart failure, unspecified (2) Atrial fibrillation Atrial fibrillation type: unspecified Qualified Code(s): I48.91 - Unspecified atrial fibrillation (3) Hypothyroidism Hypothyroidism type: acquired Qualified Code(s): E03.9 - Hypothyroidism, unspecified (4) Hypertension Hypertension type: essential hypertension Qualified Code(s): I10 - Essential (primary) hypertension
--- NOTE | 2021-10-16 14:01 | Pharmacy Report ---
Pharmacy Glycemic Short Note 2 - Date of Service October 16, 2021 - Glycemic Short BSG Results (Last 24 hours): 10/15/21 10/15/21 10/16/21 16:57 20:40 06:46 Glucose 106 H POC Glucose 112 H 107 H 10/16/21 10/16/21 08:21 12:06 Glucose POC Glucose 114 H 248 H OUTPATIENT ANTIDIABETIC REGIMEN: * Novolog mix 70/30 100 units SQ qam, 90 units SQ qpm ASSESSMENT: 10/16/21: * Patient received 66 units of insulin yesterday (40 units NPH + 26 units novolog) * Fasting BSG is at goal. Lunchtime BSG continues to be the highest BSG of the day. * Despite tightening carb coverage with breakfast, the trend continues today. Will tighten CR further. 10/15/21 * Stressors stable * Post-prandial BSG's at dinner and HS yesterday and at lunch today were elevated. Will continue with uneven distribution of CHO ratio, but will tighten at breakfast, dinner, and HS. Will leave lunch 2nd hx of reduced BSG's at dinner when lunch CHO ratio was tighter. * AM fasting BSG in goal range - no change to NPH 10/14/21: * 3rd HD session planned for today (3 hr). Patients often require a sharp decrease in insulin at initiation of HD, although this does not seem to be the case for Mr. Warren based on the trends from the initial two HD sessions * Will keep regimen the same for now, but may need to loosen/decrease insulin if BSG's decrease 10/11/21: * Patient received total of 80 units of insulin yesterday, of which 40 units were NPH * Fasting BSG 137 mg/dL - NPO for perm cath placement. Held AM NPH dose - Not clear when they will start dialysis * Plan to resume NPH again tonight * May need to adjusting dosing tomorrow if HD planned PLAN FOR INPATIENT GLYCEMIC CONTROL: * Hold outpatient oral diabetes medications * Basal insulin * NPH 20 units SQ BID * Bolus insulin - tighten breakfast carb coverage * NovoLog per scale ACHS or Q6hrs while NPO * Goal Range: Low 110 mg/dL - High 140 mg/dL * Correction Factor: 20 mg/dL/unit * Carb ratio: 4 g CHO/unit with breakfast, 6 g CHO/unit lunch, dinner, bedtime PLAN FOR DISCHARGE: * A1c is unreliable secondary to CKD and altered RBC turnover rate. If patient is experiencing hypoglycemia as an outpatient recommend decreasing outpatient insulin doses as outpatient doses are significantly higher than inpatient dosing. * Patient may require further adjustment based on how significantly initiation of HD affects insulin sensitivity (dose adjustments down are sometimes required due to increased insulin sensitivity)
[2021-10-16] MEDS: HEPARIN SOD (PORCINE) 1000 UNIT/ML IV SCH (16:25)
[2021-10-16] MEDS: WARFARIN SOD 5 MG TAB PO SCH (18:42)
--- NOTE | 2021-10-16 20:33 | Nephrology Progress Note ---
Date of Service October 16, 2021 Assessment & Plan (1) Acute kidney injury: Plan: -Secondary to fluid overload >> now ESRD, with new start to dialysis previously w/ CKD stage 4/5, with his serum creatinine in early to mid fours, and has been resistant to the idea of dialysis in the past but changed his mind and started here. now on chronic HD chemistries ok -getting IV iron -daily bmp, hgb -cotninue torsemide, metolazone current doses -awaiting bed at [facility] -next HD on 10/18 or as clinical needs dictate -cotn low sodium diet, 1.5L FR Admission and Anticipated Discharge Date Admission Date: October 03, 2021 Subjective no acute interval events. no sob, still on ; no uncontrolled pain or edema. seen on rounds at 1030 Review of Systems Review of Systems: All systems reviewed & are unremarkable except as noted in Subjective Physical Exam Constitutional: well developed and well nourished tired today Eyes: EOM intact bilaterally ENMT: Ears: no external ear abnormality Nose: no external nose abnormality Mouth: + dry oral mucous membranes Neck: no nuchal rigidity Respiratory: normal respiratory effort Auscultation: + diminished lung sounds and + crackles (bibasilar) Cardiovascular: Rate/Rhythm: regular rate and regular rhythm Heart Sounds: + murmur Extremities: no edema Gastrointestinal (Abdomen): Inspection/Auscultation: normal bowel sounds Percussion/Palpation: abdomen soft; abdomen nontender Musculoskeletal: Extremities: strength 5/5 throughout and + leg length discrepancy (R AKA) Skin: no rashes, warm and dry Psychiatric: Orientation: alert and oriented x 3 Results & Data ([facility]) Vital Signs (Past 12 Hours) Vital Signs Temp Pulse Pulse Pulse Resp BP BP 10/16/21 18:40 36.4 C L 65 18 115/65 10/16/21 18:10 36.7 C 63 125/64 10/16/21 18:05 64 118/63 10/16/21 17:40 64 131/61 10/16/21 17:20 66 123/66 10/16/21 17:00 66 112/59 L 10/16/21 16:40 65 121/62 10/16/21 16:20 64 109/59 L 10/16/21 16:00 63 110/63 10/16/21 15:40 64 113/61 10/16/21 15:20 68 102/73 10/16/21 15:00 64 109/65 10/16/21 14:40 60 117/70 10/16/21 14:35 37.0 C 59 L 79 120/67 Pulse Ox 10/16/21 18:40 96 10/16/21 18:10 10/16/21 18:05 10/16/21 17:40 10/16/21 17:20 10/16/21 17:00 10/16/21 16:40 10/16/21 16:20 10/16/21 16:00 10/16/21 15:40 10/16/21 15:20 10/16/21 15:00 10/16/21 14:40 10/16/21 14:35 Laboratory Results 10/14/21 06:22 10/16/21 06:46 Diagnostic Findings cxr yest w/ mild plm edema
[2021-10-16] MEDS: hydrALAZINE HCL 25 MG TAB PO SCH (20:35)
[2021-10-17] MEDS ORDERED: COUGH DROP (SUGAR FREE) LOZ 24 LOZ/1 BOX BUCCAL ONE (03:32)
[2021-10-17] MEDS: LEVOTHYROXINE SODIUM 112 MCG TABLET PO SCH (05:41)
[2021-10-17] MEDS: ISOSORBIDE DINITRATE 20 MG TAB PO SCH ×3 (07:55→17:22)
[2021-10-17] MEDS: allopurinoL 300 MG TAB PO SCH (07:56)
[2021-10-17] MEDS: ASCORBIC ACID 500 MG TAB PO SCH (07:57)
[2021-10-17] MEDS: AMIODARONE 200 MG TAB PO SCH ×2 (07:57→21:13)
[2021-10-17] MEDS: CHOLECALCIFEROL 1,000 UNITS 25 MCG TAB PO SCH (07:58)
[2021-10-17] MEDS: ATORVASTATIN 10 MG TAB PO SCH (07:58)
[2021-10-17] MEDS: OMEGA-3 (PURIFIED FISH OIL) 1 GM CAP PO SCH (07:59)
[2021-10-17] MEDS: hydrALAZINE HCL 25 MG TAB PO SCH ×2 (07:59→21:13)
[2021-10-17] MEDS: FENOFIBRATE NANOCRYSTALLIZED 48 MG TABLET PO SCH (07:59)
[2021-10-17] MEDS: metOLazone 5 MG TABLET PO SCH (08:00)
[2021-10-17] MEDS: TORSEMIDE 100 MG TAB PO SCH (08:00)
--- NOTE | 2021-10-17 08:02 | Hospitalist Progress Note ---
Date of Service October 17, 2021 Assessment & Plan (1) Acute exacerbation of CHF (congestive heart failure): Plan: 75yo Male PMH CHF DM2 CKD IV afib on warfarin, CAD HTN HLD ICD placement chronic venous stasis here for SOB. Acute on chronic HFrEF - Appears this is likely an acute decompensation in the setting of worsening renal function - appearing rather euvolemic at this time - Remains on supplemental O2 and will wean as tolerated - feels SOB is only present with exertion (family also states he doesn't move much so suspect some may be deconditioning) -- Recommend saturations of 90 or better; given body habitus suspect hypoventilation syndrome and possibly PINKY. May benefit from outpatient testing as he does desaturate when sleeping -- Given the amiodarone and still requiring supplemental O2 after diuresis - possibly could be a component of interstitial pneumonitis? amiodarone levels are a reference lab so of little value currently. Could discuss with [facility]iology to gather their thoughts - Has completed HD x 3 initial sessions and tolerating - next dialysis today - plan for MWF - negative 12 L total per I&Os; down approx 24 lbs since admission - Cardiology followed/sign off - no change in recommendation - following diuretics as guided by nephrology (2) CKD (chronic kidney disease) stage 4, GFR 15-29 ml/min: Plan: Acute Kidney Injury/Suspect ATN Superimposed on CKD IV - Now End Stage with HD Initiated - Ultimately agreed to HD and currently tolerating; S/P perm cath insertion on 10/11 - Continue Torsemide 100 mg daily and Metolazone 5 mg daily - Nephrology continues to support use of diuretics 10/17 (3) T2DM (type 2 diabetes mellitus): Plan: DM2 -glycemic consult placed -stoner hand consulted -07/2021 A1c 9.3 (4) Hypertension: Plan: - STABLE - continue hydralazine 25 mg BID (reduced) - continue metoprolol tartrate 50mg BID -isosorbide also helps (5) Atrial fibrillation: Plan: Atrial Fibrillation on Warfarin with Supratherapeutic INR on presentation - Has ICD/Pacer; H/O Ventricular Fibrillation now restarted Coumadin 5 mg daily and monitor INR periodically - Continue Amiodarone 200 mg BID; Metoprolol 50 mg BID (6) Venous stasis ulcer of left lower extremity: Plan: elevation (7) Hypothyroidism: Plan: clinnicaly stable -continue levothyroxine 112 mcg -12/2020 TSH 3.51 (8) Anemia: Plan: anemia of chronic disease - Hgb at 8 and relatively stable - Vitals are stable - no indication for transfusion at this time; receiving Venofer with HD with Nephrology oversight Plan: - Awaiting rehab and dialysis arrangements - planning on [facility] and could go when able to accept. Sister mentioned about him going to care home after [facility] for long-term care? - Admission and Anticipated Discharge Date Admission Date: October 03, 2021 Subjective Pt without complaints has some arthritic pain in left knee, is awaiting rehab placement that can accomidate his new dialysis needs Review of Systems Review of Systems: Mild distress and fatigue no headache, no visual changes no speech or swallowing issues no chest pain, pressure or palpitations no shortness of breath, cough or wheezes no abdominal pain, nausea or vomiting, diarrhea or constipation no dysuria, hematuria or frequency Left knee pain of note has right BKA no back pain, CVA tenderness or radicular pain no bruising, bleeding or rashes no focal signs of weakness or numbness or altered sensation no complaints of anxiety or depression.. Physical Exam Physical Exam: The patient appeared well nourished and normally developed. Vital signs as documented. Head exam is normocephalic atraumatic Neck is without JVD, thyromegaly, or carotid bruits. Lungs are clear to auscultation diminished at the bases. Dialysis catheter right upper chest without discomfort or erythema Cardiac exam, Rhythm is regular.. No murmurs, rubs or gallops. Abdominal exam reveals normal bowel sounds, soft non tender, no masses Extremities right BKA, left knee shows no effusion complete planes of tenderness to exam Neurologic exam is alert and oriented, no focal loss of strength or sensation Skin is without bruises or rashes Psychologically is without concerns for anxiety or depression.. Results & Data Results & Data ([facility]) Vital Signs (Past 12 Hours) Vital Signs Temp Pulse Pulse Resp BP Pulse Ox 10/17/21 07:38 97.9 F 64 18 121/68 98 10/16/21 23:39 97.7 F 70 20 123/63 94 PG Care Time/CCT Total # of Minutes Spent Total Time Spent with Patient: Total time spent is greater than 50% in coordination of care (as documented) at patient's floor/unit and/or counseling patient: Coding Level of Care Code 22068 Subseq Hosp Care Lvl 2 Diagnoses Acute exacerbation of CHF (congestive heart failure) I50.9 Heart failure type: unspecified CKD (chronic kidney disease) stage 4, GFR 15-29 ml/min N18.4 T2DM (type 2 diabetes mellitus) E11.9 Hypertension I10 Hypertension type: essential hypertension Atrial fibrillation I48.91 Atrial fibrillation type: unspecified Venous stasis ulcer of left lower extremity I83.029; L97.929 Hypothyroidism E03.9 Hypothyroidism type: acquired Anemia D64.9 (1) Acute exacerbation of CHF (congestive heart failure) Heart failure type: unspecified Qualified Code(s): I50.9 - Heart failure, unspecified (2) Atrial fibrillation Atrial fibrillation type: unspecified Qualified Code(s): I48.91 - Unspecified atrial fibrillation (3) Hypothyroidism Hypothyroidism type: acquired Qualified Code(s): E03.9 - Hypothyroidism, unspecified (4) Hypertension Hypertension type: essential hypertension Qualified Code(s): I10 - Essential (primary) hypertension
[2021-10-17] MEDS: METOPROLOL TARTRATE 50 MG TAB PO SCH ×2 (08:03→21:13)
[2021-10-17] MEDS: INSULIN ASPART 100 UNITS/ML 3 ML PEN SC SCH ×4 (09:46→21:21)
[2021-10-17] MEDS: INSULIN HUMAN NPH SC SCH ×2 (09:51→21:20)
[2021-10-17] MEDS: POLYETHYLENE (MIRALAX) 17 GM PACK PO SCH ×3 (09:54→21:14)
[2021-10-17] MEDS: DOCUSATE SODIUM/SENNA 50/8.6MG TAB PO SCH (12:17)
[2021-10-17] MEDS: WARFARIN SOD 5 MG TAB PO SCH (17:20)
[2021-10-17] MEDS: LIDOCAINE 5% 1 PATCH TD SCH (17:23)
[2021-10-18] MEDS: LEVOTHYROXINE SODIUM 112 MCG TABLET PO SCH (05:44)
[2021-10-18] MEDS ORDERED: HEPARIN SOD (PORCINE) 1000 UNIT/ML IV SCH (07:00)
[2021-10-18] MEDS ORDERED: SODIUM CHLORIDE 0.9% 1000ML 1,000 ML IV PRN (07:00)
[2021-10-18] MEDS ORDERED: EPOETIN ALFA 10,000 UNITS/ML VIAL IV SCH (07:00)
[2021-10-18] MEDS: ISOSORBIDE DINITRATE 20 MG TAB PO SCH ×3 (09:31→16:43)
[2021-10-18] MEDS: allopurinoL 300 MG TAB PO SCH (09:31)
[2021-10-18] MEDS: AMIODARONE 200 MG TAB PO SCH ×2 (09:32→20:45)
[2021-10-18] MEDS: ASCORBIC ACID 500 MG TAB PO SCH (09:36)
[2021-10-18] MEDS: ATORVASTATIN 10 MG TAB PO SCH (09:37)
[2021-10-18] MEDS: CHOLECALCIFEROL 1,000 UNITS 25 MCG TAB PO SCH (09:38)
[2021-10-18] MEDS: FENOFIBRATE NANOCRYSTALLIZED 48 MG TABLET PO SCH (09:38)
[2021-10-18] MEDS: OMEGA-3 (PURIFIED FISH OIL) 1 GM CAP PO SCH (09:39)
[2021-10-18] MEDS: hydrALAZINE HCL 25 MG TAB PO SCH ×2 (09:40→20:46)
[2021-10-18] MEDS: LIDOCAINE 5% 1 PATCH TD SCH (09:40)
[2021-10-18] MEDS: METOPROLOL TARTRATE 50 MG TAB PO SCH ×2 (09:41→20:47)
[2021-10-18] MEDS: metOLazone 5 MG TABLET PO SCH (09:41)
[2021-10-18] MEDS: TORSEMIDE 100 MG TAB PO SCH (09:42)
[2021-10-18] MEDS: INSULIN HUMAN NPH SC SCH ×2 (09:46→20:48)
[2021-10-18] MEDS: INSULIN ASPART 100 UNITS/ML 3 ML PEN SC SCH ×4 (09:48→20:48)
[2021-10-18] MEDS: POLYETHYLENE (MIRALAX) 17 GM PACK PO SCH ×2 (12:16→20:47)
--- NOTE | 2021-10-18 13:46 | Hospitalist Progress Note ---
Date of Service October 18, 2021 Assessment & Plan (1) Acute exacerbation of CHF (congestive heart failure): Plan: 75yo Male PMH CHF DM2 CKD IV afib on warfarin, CAD HTN HLD ICD placement chronic venous stasis here for SOB. Acute on chronic HFrEF - Appears this is likely an acute decompensation in the setting of worsening renal function - - Remains on supplemental O2 and will wean as tolerated - feels SOB is only present with exertion (family also states he doesn't move much so suspect some may be deconditioning) -- Recommend saturations of 90 or better; given body habitus suspect hypoventilation syndrome and possibly PINKY. May benefit from outpatient testing as he does desaturate when sleeping -- Given the amiodarone and still requiring supplemental O2 after diuresis - possibly could be a component of interstitial pneumonitis? cxr is not classic for this, and could be sob due to deconditioning --recommend cardiology follow up - Has completed HD x 3 initial sessions and tolerating - next dialysis today - plan for MWF - negative 12 L total per I&Os; down approx 24 lbs since admission - Cardiology followed/sign off - no change in recommendation - following diuretics as guided by nephrology (2) CKD (chronic kidney disease) stage 4, GFR 15-29 ml/min: Plan: Acute Kidney Injury/Suspect ATN Superimposed on CKD IV - Now End Stage with HD Initiated - Ultimately agreed to HD and currently tolerating; S/P perm cath insertion on 10/11 - Continue Torsemide 100 mg daily and Metolazone 5 mg daily - Nephrology continues to support use of diuretics 10/17 (3) T2DM (type 2 diabetes mellitus): Plan: DM2 -glycemic consult placed -blending kettle tender consulted -07/2021 A1c 9.3 (4) Hypertension: Plan: - STABLE - continue hydralazine 25 mg BID (reduced) - continue metoprolol tartrate 50mg BID -isosorbide also helps (5) Atrial fibrillation: Plan: Atrial Fibrillation on Warfarin with Supratherapeutic INR on presentation - Has ICD/Pacer; H/O Ventricular Fibrillation now restarted Coumadin 5 mg daily and monitor INR periodically - Continue Amiodarone 200 mg BID; Metoprolol 50 mg BID (6) Venous stasis ulcer of left lower extremity: Plan: elevation (7) Hypothyroidism: Plan: clinnicaly stable -continue levothyroxine 112 mcg -12/2020 TSH 3.51 (8) Anemia: Plan: anemia of chronic disease - Hgb at 8 and relatively stable - Vitals are stable - no indication for transfusion at this time; receiving Venofer with HD with Nephrology oversight Plan: - Awaiting rehab and dialysis arrangements - planning on [facility] and could go when able to accept. Sister mentioned about him going to senior care after [facility] for long-term care? - Admission and Anticipated Discharge Date Admission Date: October 03, 2021 Subjective lidoderm patch did help reduce the arthritic pain in left knee, continues awaiting rehab placement that can accommodate his new dialysis needs Review of Systems Review of Systems: Mild distress and fatigue no headache, no visual changes no speech or swallowing issues no chest pain, pressure or palpitations no shortness of breath, cough or wheezes no abdominal pain, nausea or vomiting, diarrhea or constipation no dysuria, hematuria or frequency Left knee pain improved of note has right BKA no back pain, CVA tenderness or radicular pain no bruising, bleeding or rashes no focal signs of weakness or numbness or altered sensation no complaints of anxiety or depression.. Physical Exam Physical Exam: The patient appeared well nourished and normally developed. Vital signs as documented. Head exam is normocephalic atraumatic Neck is without JVD, thyromegaly, or carotid bruits. Lungs are clear to auscultation diminished at the bases. Dialysis catheter right upper chest without discomfort or erythema Cardiac exam, Rhythm is regular.. No murmurs, rubs or gallops. Abdominal exam reveals normal bowel sounds, soft non tender, no masses Extremities right BKA, left knee without effusion complete planes of tenderness to exam Neurologic exam is alert and oriented, no focal loss of strength or sensation Skin is without bruises or rashes Psychologically is without concerns for anxiety or depression.. Results & Data Results & Data ([facility]) Vital Signs (Past 12 Hours) Vital Signs Temp Pulse Pulse Pulse Resp BP BP 10/18/21 13:20 62 114/66 10/18/21 13:00 60 108/63 10/18/21 12:40 97.7 F 67 10/18/21 07:23 98.1 F 60 16 120/57 L Pulse Ox 10/18/21 13:20 10/18/21 13:00 10/18/21 12:40 10/18/21 07:23 96 PG Care Time/CCT Total # of Minutes Spent Total Time Spent with Patient: Total time spent is greater than 50% in coordination of care (as documented) at patient's floor/unit and/or counseling patient: Coding Level of Care Code 12106 Subseq Hosp Care Lvl 2 Diagnoses Acute exacerbation of CHF (congestive heart failure) I50.9 Heart failure type: unspecified CKD (chronic kidney disease) stage 4, GFR 15-29 ml/min N18.4 T2DM (type 2 diabetes mellitus) E11.9 Hypertension I10 Hypertension type: essential hypertension Atrial fibrillation I48.91 Atrial fibrillation type: unspecified Venous stasis ulcer of left lower extremity I83.029; L97.929 Hypothyroidism E03.9 Hypothyroidism type: acquired Anemia D64.9 (1) Acute exacerbation of CHF (congestive heart failure) Heart failure type: unspecified Qualified Code(s): I50.9 - Heart failure, unspecified (2) Hypertension Hypertension type: essential hypertension Qualified Code(s): I10 - Essential (primary) hypertension (3) Atrial fibrillation Atrial fibrillation type: unspecified Qualified Code(s): I48.91 - Unspecified atrial fibrillation (4) Hypothyroidism Hypothyroidism type: acquired Qualified Code(s): E03.9 - Hypothyroidism, un specified
--- NOTE | 2021-10-18 14:08 | Pharmacy Report ---
Pharmacy Glycemic Short Note 2 - Date of Service October 18, 2021 - Glycemic Short BSG Results (Last 24 hours): 10/17/21 10/17/21 10/18/21 17:20 20:37 08:13 POC Glucose 122 H 144 H 127 H 10/18/21 11:18 POC Glucose 204 H OUTPATIENT ANTIDIABETIC REGIMEN: * Novolog mix 70/30 100 units SQ qam, 90 units SQ qpm * HbA1c: 6.4% (10/04/21) * However, this result is likely somewhat unreliable in ESRD patients d/t interactions between the A1c analyzing technique and high levels of urea in ESRD, reduced RBC life span, iron deficiency anemia, and EPO administration. HbA1c > 7.5% in ESRD patient may overestimate the extent of hyperglycemia in ESRD patients. ASSESSMENT: 10/18/21: * BSGs remain reasonably controlled * Receiving ~50/50 basal/bolus split (40 units of NPH and 44 units of Novolog yesterday) * Hemodialysis scheduled for today * Lunch BSG elevated at 204 mg/dL - will tighten AM Novolog correction factor for tomorrow morning 10/16/21: * Patient received 66 units of insulin yesterday (40 units NPH + 26 units novolog) * Fasting BSG is at goal. Lunchtime BSG continues to be the highest BSG of the day. * Despite tightening carb coverage with breakfast, the trend continues today. Will tighten CR further. 10/15/21 * Stressors stable * Post-prandial BSG's at dinner and HS yesterday and at lunch today were elevated. Will continue with uneven distribution of CHO ratio, but will tighten at breakfast, dinner, and HS. Will leave lunch 2nd hx of reduced BSG's at dinner when lunch CHO ratio was tighter. * AM fasting BSG in goal range - no change to NPH 10/14/21: * 3rd HD session planned for today (3 hr). Patients often require a sharp decrease in insulin at initiation of HD, although this does not seem to be the case for Mr. Warren based on the trends from the initial two HD sessions * Will keep regimen the same for now, but may need to loosen/decrease insulin if BSG's decrease PLAN FOR INPATIENT GLYCEMIC CONTROL: * Basal insulin * NPH 20 units SQ BID * Bolus insulin - tighten breakfast carb coverage * NovoLog per scale ACHS or Q6hrs while NPO * Goal Range: Low 110 mg/dL - High 140 mg/dL * Correction Factor: 20 mg/dL/unit * Carb ratio: 3 g CHO/unit with breakfast, 6 g CHO/unit lunch, dinner, bedtime PLAN FOR DISCHARGE: * A1c is unreliable secondary to CKD and altered RBC turnover rate. If patient is experiencing hypoglycemia as an outpatient recommend decreasing outpatient insulin doses as outpatient doses are significantly higher than inpatient dosing. * Patient may require further adjustment based on how significantly initiation of HD affects insulin sensitivity (dose adjustments down are sometimes required due to increased insulin sensitivity)
[2021-10-18] MEDS: HEPARIN SOD (PORCINE) 1000 UNIT/ML IV SCH ×2 (15:30→16:57)
[2021-10-18] MEDS: WARFARIN SOD 5 MG TAB PO SCH (18:20)
[2021-10-18] MEDS: DOCUSATE SODIUM/SENNA 50/8.6MG TAB PO SCH (18:21)
--- NOTE | 2021-10-18 21:29 | Dialysis Progress Note ---
Date of Service October 18, 2021 Assessment & Plan (1) Acute kidney injury: Plan: -Secondary to fluid overload >> now ESRD, with new start to dialysis previously w/ CKD stage 4/5, with his serum creatinine in early to mid fours, and has been resistant to the idea of dialysis in the past but changed his mind and started here. now on chronic HD chemistries ok -getting IV iron -daily bmp, hgb -cotninue torsemide, metolazone current doses -awaiting bed at [facility] -next HD on 10/18 or as clinical needs dictate -cotn low sodium diet, 1.5L FR Admission and Anticipated Discharge Date Admission Date: October 03, 2021 Subjective no dialysis related or other clinical concerns. breathing at baseline; no n/f Review of Systems Review of Systems: All systems reviewed & are unremarkable except as noted in Subjective Physical Exam Constitutional: well developed and well nourished on 02nc; NAD Eyes: EOM intact bilaterally ENMT: Ears: no external ear abnormality Nose: no external nose abnormality Mouth: + dry oral mucous membranes Neck: no nuchal rigidity Respiratory: normal respiratory effort Auscultation: + diminished lung sounds and + crackles (bibasilar) Cardiovascular: Rate/Rhythm: regular rate and regular rhythm Heart Sounds: + murmur Extremities: no edema Gastrointestinal (Abdomen): Inspection/Auscultation: normal bowel sounds Percussion/Palpation: abdomen soft; abdomen nontender Musculoskeletal: Extremities: strength 5/5 throughout and + leg length discrepancy (R AKA) Skin: no rashes, warm and dry Psychiatric: Orientation: alert and oriented x 3 Results & Data ([facility]) Vital Signs (Past 12 Hours) Vital Signs Temp Pulse Pulse Pulse Resp BP BP 10/18/21 20:53 64 110/54 L 10/18/21 16:41 36.6 C 62 16 114/63 10/18/21 16:35 36.7 C 59 L 124/66 10/18/21 16:00 59 L 115/64 10/18/21 15:40 60 129/62 10/18/21 15:20 60 115/62 10/18/21 15:00 59 L 112/60 10/18/21 14:40 63 116/64 10/18/21 14:20 60 104/58 L 10/18/21 14:00 59 L 107/59 L 10/18/21 13:40 60 121/61 10/18/21 13:20 62 114/66 10/18/21 13:00 60 108/63 10/18/21 12:40 36.5 C 67 Pulse Ox 10/18/21 20:53 10/18/21 16:41 93 10/18/21 16:35 10/18/21 16:00 10/18/21 15:40 10/18/21 15:20 10/18/21 15:00 10/18/21 14:40 10/18/21 14:20 10/18/21 14:00 10/18/21 13:40 10/18/21 13:20 10/18/21 13:00 10/18/21 12:40 Laboratory Results 10/14/21 06:22 10/16/21 06:46
[2021-10-19] MEDS: LEVOTHYROXINE SODIUM 112 MCG TABLET PO SCH (07:08)
[2021-10-19] MEDS: ISOSORBIDE DINITRATE 20 MG TAB PO SCH ×3 (07:08→17:17)
[2021-10-19 07:09] LABS: Hematocrit (blood only) 31.5 % (42-52); Hemoglobin 9.4 g/dL (14.0-18.0); Mean Corpuscular Hemoglobin 28.2 pg (25-34); Mean Corpuscular Hgb Conc 29.8 g/dL (32-36); Mean Corpuscular Volume 94.6 fL (80-100); Mean Platelet Volume 9.7 fL (7.4-10.4); Platelet Count 406 K/uL (130-400); RDW Standard Deviation 62.2 fL (36.4-46.3); Red Blood Count 3.33 M/uL (4.7-6.1)
[2021-10-19 07:29] LABS: INR 1.8 (0.9-1.1); Prothrombin Time 17.7 Seconds (9.0-12.0)
[2021-10-19 07:43] LABS: Calcium 9.6 mg/dl (8.5-10.1); Creatinine Clr Calc Pharmacy 17.4 ml/min; Est GFR (African American) 12.6 ml/min; Est GFR (Non-African American) 10.9 ml/min; Potassium 4.2 mmol/L (3.5-5.1)
[2021-10-19] MEDS: INSULIN HUMAN NPH SC SCH ×2 (08:18→21:16)
[2021-10-19] MEDS: allopurinoL 300 MG TAB PO SCH (08:22)
[2021-10-19] MEDS: AMIODARONE 200 MG TAB PO SCH ×2 (08:23→21:15)
[2021-10-19] MEDS: ASCORBIC ACID 500 MG TAB PO SCH (08:23)
[2021-10-19] MEDS: ATORVASTATIN 10 MG TAB PO SCH (08:24)
[2021-10-19] MEDS: CHOLECALCIFEROL 1,000 UNITS 25 MCG TAB PO SCH (08:24)
[2021-10-19] MEDS: FENOFIBRATE NANOCRYSTALLIZED 48 MG TABLET PO SCH (08:25)
[2021-10-19] MEDS: OMEGA-3 (PURIFIED FISH OIL) 1 GM CAP PO SCH (08:25)
[2021-10-19] MEDS: LIDOCAINE 5% 1 PATCH TD SCH (08:26)
[2021-10-19] MEDS: hydrALAZINE HCL 25 MG TAB PO SCH ×2 (08:26→21:14)
[2021-10-19] MEDS: METOPROLOL TARTRATE 50 MG TAB PO SCH ×2 (08:29→21:15)
[2021-10-19] MEDS: metOLazone 5 MG TABLET PO SCH (08:29)
[2021-10-19] MEDS: POLYETHYLENE (MIRALAX) 17 GM PACK PO SCH ×2 (08:30→21:16)
[2021-10-19] MEDS: TORSEMIDE 100 MG TAB PO SCH (08:30)
[2021-10-19] MEDS: INSULIN ASPART 100 UNITS/ML 3 ML PEN SC SCH ×4 (08:32→21:18)
--- NOTE | 2021-10-19 09:29 | Pharmacy Report ---
Pharmacy Glycemic Short Note 2 - Date of Service October 19, 2021 - Glycemic Short BSG Results (Last 24 hours): 10/18/21 10/18/21 10/18/21 11:18 17:27 20:45 Glucose POC Glucose 204 H 74 131 H 10/19/21 10/19/21 06:48 08:07 Glucose 127 H POC Glucose 129 H OUTPATIENT ANTIDIABETIC REGIMEN: * Novolog mix 70/30 100 units SQ qam, 90 units SQ qpm * HbA1c: 6.4% (10/04/21) * However, this result is likely somewhat unreliable in ESRD patients d/t interactions between the A1c analyzing technique and high levels of urea in ESRD, reduced RBC life span, iron deficiency anemia, and EPO administration. HbA1c > 7.5% in ESRD patient may overestimate the extent of hyperglycemia in ESRD patients. ASSESSMENT: 10/19/21 * Patient's BSGs yesterday were [phone] mg/dL. Patient received 69 units of insulin (40 units of NPH plus 29 units of Novolog). * Fasting today was 129 mg/dL. * Continue regimen NPH. * Loosen CF as patient almost overcorrected yesterday. 10/18/21: * BSGs remain reasonably controlled * Receiving ~50/50 basal/bolus split (40 units of NPH and 44 units of Novolog yesterday) * Hemodialysis scheduled for today * Lunch BSG elevated at 204 mg/dL - will tighten AM Novolog correction factor for tomorrow morning 10/16/21: * Patient received 66 units of insulin yesterday (40 units NPH + 26 units novolog) * Fasting BSG is at goal. Lunchtime BSG continues to be the highest BSG of the day. * Despite tightening carb coverage with breakfast, the trend continues today. Will tighten CR further. 10/15/21 * Stressors stable * Post-prandial BSG's at dinner and HS yesterday and at lunch today were elevated. Will continue with uneven distribution of CHO ratio, but will tighten at breakfast, dinner, and HS. Will leave lunch 2nd hx of reduced BSG's at dinner when lunch CHO ratio was tighter. * AM fasting BSG in goal range - no change to NPH 10/14/21: * 3rd HD session planned for today (3 hr). Patients often require a sharp decrease in insulin at initiation of HD, although this does not seem to be the case for Mr. Warren based on the trends from the initial two HD sessions * Will keep regimen the same for now, but may need to loosen/decrease insulin if BSG's decrease PLAN FOR INPATIENT GLYCEMIC CONTROL: * Basal insulin * NPH 20 units SQ BID * Bolus insulin - loosen CF * NovoLog per scale ACHS or Q6hrs while NPO * Goal Range: Low 110 mg/dL - High 140 mg/dL * Correction Factor: 25 mg/dL/unit * Carb ratio: 3 g CHO/unit with breakfast, 6 g CHO/unit lunch, dinner, bedtime PLAN FOR DISCHARGE: * A1c is unreliable secondary to CKD and altered RBC turnover rate. If patient is experiencing hypoglycemia as an outpatient recommend decreasing outpatient insulin doses as outpatient doses are significantly higher than inpatient dosing. * Patient may require further adjustment based on how significantly initiation of HD affects insulin sensitivity (dose adjustments down are sometimes required due to increased insulin sensitivity). Currently only receiving about 70 units/day.
[2021-10-19] MEDS: DOCUSATE SODIUM/SENNA 50/8.6MG TAB PO SCH (11:05)
--- NOTE | 2021-10-19 13:16 | Hospitalist Progress Note ---
Date of Service October 19, 2021 Assessment & Plan (1) Acute exacerbation of CHF (congestive heart failure): Plan: 75yo Male PMH CHF DM2 CKD IV afib on warfarin, CAD HTN HLD ICD placement chronic venous stasis here for SOB. Acute on chronic HFrEF - Appears this is likely an acute decompensation in the setting of worsening renal function - - Remains on supplemental O2 and will wean as tolerated - feels SOB is only present with exertion (family also states he doesn't move much so suspect some may be deconditioning) -- Recommend saturations of 90 or better; given body habitus suspect hypoventilation syndrome and possibly PINKY. May benefit from outpatient testing as he does desaturate when sleeping -- Given the amiodarone and still requiring supplemental O2 after diuresis - possibly could be a component of interstitial pneumonitis? cxr is not classic for this, and could be sob due to deconditioning --recommend cardiology follow up - Has completed HD x 3 initial sessions and tolerating - plan for MWF sessions- negative 12 L total per I&Os; down approx 24+ lbs since admission - Cardiology followed/sign off - no change in recommendation - following diuretics as guided by nephrology (2) CKD (chronic kidney disease) stage 4, GFR 15-29 ml/min: Plan: Acute Kidney Injury/Suspect ATN Superimposed on CKD IV - Now End Stage with HD Initiated - Ultimately agreed to HD and currently tolerating; S/P perm cath insertion on 10/11 - Continue Torsemide 100 mg daily and Metolazone 5 mg daily - Nephrology continues to support use of diuretics (3) T2DM (type 2 diabetes mellitus): Plan: DM2 -glycemic consult placed -numerical control operator consulted -07/2021 A1c 9.3 (4) Hypertension: Plan: - STABLE - continue hydralazine 25 mg BID (reduced) - continue metoprolol tartrate 50mg BID -isosorbide also helps (5) Atrial fibrillation: Plan: Atrial Fibrillation on Warfarin with Supratherapeutic INR on presentation - Has ICD/Pacer; H/O Ventricular Fibrillation now restarted Coumadin 5 mg daily and monitor INR periodically - currently at 1.8 - Continue Amiodarone 200 mg BID; Metoprolol 50 mg BID (6) Venous stasis ulcer of left lower extremity: Plan: elevation (7) Hypothyroidism: Plan: clinnicaly stable -continue levothyroxine 112 mcg -12/2020 TSH 3.51 (8) Anemia: Plan: anemia of chronic disease - Hgb at 8-9 and relatively stable - Vitals are stable - no indication for transfusion at this time; receiving Venofer with HD with Nephrology oversight Plan: - Awaiting rehab and dialysis arrangements - planning on [facility] and could go when able to accept. Sister mentioned about [place] [facility] for long-term care? Admission and Anticipated Discharge Date Admission Date: October 03, 2021 Subjective Reports no complaints today. Still awaiting dialysis bed at [facility] but wont be this weekend. Tolerating diet without issue. Still on supplemental O2 but reports no SOB at rest. Continues at a negative fluid balance. Review of Systems Review of Systems: All systems reviewed & are unremarkable except as noted in Subjective Physical Exam Physical Exam: PHYSICAL EXAM General Appearance: 75 y/o male in NAD who is A&O x 3 HEENT: Head is normocephalic/atraumatic; Hearing grossly intact; Mucous membranes moist Neck: Supple; Trachea midline; Neg JVD Heart: RRR with murmur Lungs: CTA in all lung olivera bilaterally but diminished at bases; Respirations unlabored; Neg accessory muscle use Abdomen: Soft, non-tender, non-distended; Positive BS x 4 quadrants Extremities: Neg cyanosis; R BKA; Neg edema Neurological: Speech clear Psychiatric: Appropriate mood/affect Skin: Normal Color; Warm/Dry Results & Data Results & Data ([facility]) Vital Signs (Past 12 Hours) Vital Signs Temp Pulse Resp BP Pulse Ox 10/19/21 07:33 36.5 C 60 16 113/66 94 PG Care Time/CCT Total # of Minutes Spent Total Time Spent with Patient: Total time spent is greater than 50% in coordination of care (as documented) at patient's floor/unit and/or counseling patient: Coding Level of Care Code 77834 Subseq Hosp Care Lvl 2 Diagnoses Acute exacerbation of CHF (congestive heart failure) I50.9 Heart failure type: unspecified CKD (chronic kidney disease) stage 4, GFR 15-29 ml/min N18.4 T2DM (type 2 diabetes mellitus) E11.9 Hypertension I10 Hypertension type: essential hypertension Atrial fibrillation I48.91 Atrial fibrillation type: unspecified Venous stasis ulcer of left lower extremity I83.029; L97.929 Hypothyroidism E03.9 Hypothyroidism type: acquired Anemia D64.9 (1) Acute exacerbation of CHF (congestive heart failure) Heart failure type: unspecified Qualified Code(s): I50.9 - Heart failure, unspecified (2) Hypertension Hypertension type: essential hypertension Qualified Code(s): I10 - Essential (primary) hypertension (3) Atrial fibrillation Atrial fibrillation type: unspecified Qualified Code(s): I48.91 - Unspecified atrial fibrillation (4) Hypothyroidism Hypothyroidism type: acquired Qualified Code(s): E03.9 - Hypothyroidism, unspecified
[2021-10-19] MEDS: WARFARIN SOD 5 MG TAB PO SCH (17:16)
[2021-10-20] MEDS: ISOSORBIDE DINITRATE 20 MG TAB PO SCH ×3 (06:07→18:57)
[2021-10-20] MEDS: LEVOTHYROXINE SODIUM 112 MCG TABLET PO SCH (06:07)
[2021-10-20 07:27] LABS: INR 1.9 (0.9-1.1); Prothrombin Time 18.2 Seconds (9.0-12.0)
[2021-10-20] MEDS: allopurinoL 300 MG TAB PO SCH (08:19)
[2021-10-20] MEDS: ASCORBIC ACID 500 MG TAB PO SCH (08:20)
[2021-10-20] MEDS: AMIODARONE 200 MG TAB PO SCH ×2 (08:20→21:29)
[2021-10-20] MEDS: CHOLECALCIFEROL 1,000 UNITS 25 MCG TAB PO SCH (08:21)
[2021-10-20] MEDS: ATORVASTATIN 10 MG TAB PO SCH (08:21)
[2021-10-20] MEDS: OMEGA-3 (PURIFIED FISH OIL) 1 GM CAP PO SCH (08:23)
[2021-10-20] MEDS: FENOFIBRATE NANOCRYSTALLIZED 48 MG TABLET PO SCH (08:23)
[2021-10-20] MEDS: hydrALAZINE HCL 25 MG TAB PO SCH ×2 (08:24→21:29)
[2021-10-20] MEDS: LIDOCAINE 5% 1 PATCH TD SCH (08:25)
[2021-10-20] MEDS: METOPROLOL TARTRATE 50 MG TAB PO SCH ×2 (08:27→21:29)
[2021-10-20] MEDS: TORSEMIDE 100 MG TAB PO SCH (08:27)
[2021-10-20] MEDS: metOLazone 5 MG TABLET PO SCH (08:27)
[2021-10-20] MEDS: POLYETHYLENE (MIRALAX) 17 GM PACK PO SCH ×2 (08:27→21:28)
[2021-10-20] MEDS ORDERED: INSULIN HUMAN NPH SC SCH (09:00)
--- NOTE | 2021-10-20 09:02 | Pharmacy Report ---
Pharmacy Glycemic Short Note 2 - Date of Service October 20, 2021 - Glycemic Short BSG Results (Last 24 hours): 10/19/21 10/19/21 10/19/21 12:18 17:10 20:33 POC Glucose 118 H 72 115 H 10/20/21 08:12 POC Glucose 93 OUTPATIENT ANTIDIABETIC REGIMEN: * Novolog mix 70/30 100 units SQ qam, 90 units SQ qpm * HbA1c: 6.4% (10/04/21) * However, this result is likely somewhat unreliable in ESRD patients d/t interactions between the A1c analyzing technique and high levels of urea in ESRD, reduced RBC life span, iron deficiency anemia, and EPO administration. HbA1c > 7.5% in ESRD patient may overestimate the extent of hyperglycemia in ESRD patients. ASSESSMENT: 10/20/21 * Patient's BSGs yesterday were [phone] mg/dL. Patient received 78 units of insulin (40 units of NPH plus 38 units of Novolog). * Fasting today was 93 mg/dL. * Decrease NPH by 25% since fasting trending down * Continue Novolog. 10/19/21 * Patient's BSGs yesterday were [phone] mg/dL. Patient received 69 units of insulin (40 units of NPH plus 29 units of Novolog). * Fasting today was 129 mg/dL. * Continue regimen NPH. * Loosen CF as patient almost overcorrected yesterday. 10/18/21: * BSGs remain reasonably controlled * Receiving ~50/50 basal/bolus split (40 units of NPH and 44 units of Novolog yesterday) * Hemodialysis scheduled for today * Lunch BSG elevated at 204 mg/dL - will tighten AM Novolog correction factor for tomorrow morning 10/16/21: * Patient received 66 units of insulin yesterday (40 units NPH + 26 units novolog) * Fasting BSG is at goal. Lunchtime BSG continues to be the highest BSG of the day. * Despite tightening carb coverage with breakfast, the trend continues today. Will tighten CR further. 10/15/21 * Stressors stable * Post-prandial BSG's at dinner and HS yesterday and at lunch today were elevated. Will continue with uneven distribution of CHO ratio, but will tighten at breakfast, dinner, and HS. Will leave lunch 2nd hx of reduced BSG's at dinner when lunch CHO ratio was tighter. * AM fasting BSG in goal range - no change to NPH 10/14/21: * 3rd HD session planned for today (3 hr). Patients often require a sharp decrease in insulin at initiation of HD, although this does not seem to be the case for Mr. Warren based on the trends from the initial two HD sessions * Will keep regimen the same for now, but may need to loosen/decrease insulin if BSG's decrease PLAN FOR INPATIENT GLYCEMIC CONTROL: * Basal insulin * NPH 15 units SQ BID * Bolus insulin - * NovoLog per scale ACHS or Q6hrs while NPO * Goal Range: Low 110 mg/dL - High 140 mg/dL * Correction Factor: 25 mg/dL/unit * Carb ratio: 3 g CHO/unit with breakfast, 6 g CHO/unit lunch, dinner, bedtime PLAN FOR DISCHARGE: * A1c is unreliable secondary to CKD and altered RBC turnover rate. If patient is experiencing hypoglycemia as an outpatient recommend decreasing outpatient insulin doses as outpatient doses are significantly higher than inpatient dosing. * Patient may require further adjustment based on how significantly initiation of HD affects insulin sensitivity (dose adjustments down are sometimes required due to increased insulin sensitivity). Currently only receiving about 70 units/day.
[2021-10-20] MEDS: DOCUSATE SODIUM/SENNA 50/8.6MG TAB PO SCH (09:07)
[2021-10-20] MEDS: INSULIN ASPART 100 UNITS/ML 3 ML PEN SC SCH ×4 (09:08→21:31)
[2021-10-20] MEDS: INSULIN HUMAN NPH SC SCH ×2 (09:11→21:31)
--- NOTE | 2021-10-20 17:02 | Hospitalist Progress Note ---
Date of Service October 20, 2021 Assessment & Plan (1) Acute exacerbation of CHF (congestive heart failure): Plan: 75yo Male PMH CHF DM2 CKD IV afib on warfarin, CAD HTN HLD ICD placement chronic venous stasis here for SOB. Acute on chronic HFrEF - Appears this is likely an acute decompensation in the setting of worsening renal function - - Remains on supplemental O2 and will wean as tolerated - feels SOB is only present with exertion (family also states he doesn't move much so suspect some may be deconditioning) -- Recommend saturations of 90 or better; given body habitus suspect hypoventilation syndrome and possibly PINKY. May benefit from outpatient testing as he does desaturate when sleeping -- Given the amiodarone and still requiring supplemental O2 after diuresis - possibly could be a component of interstitial pneumonitis? cxr is not classic for this so unlikely, and could be sob due to deconditioning. As well, did encourage to take deeper breaths as this may be contributing --recommend cardiology follow up as outpatient - Has completed HD x 3 initial sessions and tolerating subsequent treatments - plan for MWF sessions - negative 13 L total per I&Os; down approx 25+ lbs since admission - Cardiology followed/sign off - no change in recommendation - following diuretics as guided by nephrology (2) CKD (chronic kidney disease) stage 4, GFR 15-29 ml/min: Plan: Acute Kidney Injury/Suspect ATN Superimposed on CKD IV - Now End Stage with HD Initiated - Ultimately agreed to HD and currently tolerating; S/P perm cath insertion on 10/11 - Continue Torsemide 100 mg daily and Metolazone 5 mg daily - Nephrology continues to support use of diuretics (3) T2DM (type 2 diabetes mellitus): Plan: DM2 -glycemic consult placed -director private consulted -07/2021 A1c 9.3 (4) Hypertension: Plan: - STABLE - continue hydralazine 25 mg BID (reduced) - continue metoprolol tartrate 50mg BID -isosorbide also helps (5) Atrial fibrillation: Plan: Atrial Fibrillation on Warfarin with Supratherapeutic INR on presentation - Has ICD/Pacer; H/O Ventricular Fibrillation now restarted Coumadin 5 mg daily and monitor INR periodically - currently at 1.9 - Continue Amiodarone 200 mg BID; Metoprolol 50 mg BID (6) Venous stasis ulcer of left lower extremity: Plan: elevation - Now with self removal of 4th toenail - wound consulted (7) Hypothyroidism: Plan: clinically stable -continue levothyroxine 112 mcg -12/2020 TSH 3.51 (8) Anemia: Plan: anemia of chronic disease - Hgb at 8-9 and relatively stable - Vitals are stable - no indication for transfusion at this time; receiving Venofer with HD with Nephrology oversight Plan: - Awaiting dialysis bed at [facility] - and could go when able to accept. Sister mentioned about him going to [facility] after [facility] for long-term care? Admission and Anticipated Discharge Date Admission Date: October 03, 2021 Subjective Reports feeling well today. Denies SOB while sitting in the bed and lungs remain clear. Still requiring supplemental O2 however looks rather euvolemic. Pulled his L 4th toenail off. Stated it was black underneath so it he took it off. Wound care has been consulted. Review of Systems Review of Systems: All systems reviewed & are unremarkable except as noted in Subjective Physical Exam Physical Exam: PHYSICAL EXAM General Appearance: 75 y/o male in NAD who is A&O x 3 HEENT: Head is normocephalic/atraumatic; Hearing grossly intact; Mucous membranes moist Neck: Supple; Trachea midline; Neg JVD Heart: RRR with murmur Lungs: CTA in all lung olivera bilaterally but diminished at bases; Respirations unlabored; Neg accessory muscle use Abdomen: Soft, non-tender, non-distended; Positive BS x 4 quadrants Extremities: Neg cyanosis; R BKA; Neg edema Neurological: Speech clear Psychiatric: Appropriate mood/affect Skin: Normal Color; Warm/Dry Results & Data Results & Data ([facility]) Vital Signs (Past 12 Hours) Vital Signs Temp Pulse Resp BP Pulse Ox 10/20/21 15:25 36.8 C 60 16 106/60 91 10/20/21 07:25 36.5 C 60 16 123/54 L 96 PG Care Time/CCT Total # of Minutes Spent Total Time Spent with Patient: Total time spent is greater than 50% in coordination of care (as documented) at patient's floor/unit and/or counseling patient: Coding Level of Care Code 76635 Subseq Hosp Care Lvl 2 Diagnoses Acute exacerbation of CHF (congestive heart failure) I50.9 Heart failure type: unspecified CKD (chronic kidney disease) stage 4, GFR 15-29 ml/min N18.4 T2DM (type 2 diabetes mellitus) E11.9 Hypertension I10 Hypertension type: essential hypertension Atrial fibrillation I48.91 Atrial fibrillation type: unspecified Venous stasis ulcer of left lower extremity I83.029; L97.929 Hypothyroidism E03.9 Hypothyroidism type: acquired Anemia D64.9 (1) Acute exacerbation of CHF (congestive heart failure) Heart failure type: unspecified Qualified Code(s): I50.9 - Heart failure, unspecified (2) Hypertension Hypertension type: essential hypertension Qualified Code(s): I10 - Essential (primary) hypertension (3) Atrial fibrillation Atrial fibrillation type: unspecified Qualified Code(s): I48.91 - Unspecified atrial fibrillation (4) Hypothyroidism Hypothyroidism type: acquired Qualified Code(s): E03.9 - Hypothyroidism, unspecified
[2021-10-20] MEDS: WARFARIN SOD 5 MG TAB PO SCH (18:45)
[2021-10-21] MEDS: LEVOTHYROXINE SODIUM 112 MCG TABLET PO SCH (05:39)
[2021-10-21] MEDS: ISOSORBIDE DINITRATE 20 MG TAB PO SCH ×3 (05:43→18:47)
[2021-10-21] MEDS ORDERED: HEPARIN SOD (PORCINE) 1000 UNIT/ML IV ONE (07:00)
[2021-10-21] MEDS ORDERED: SODIUM CHLORIDE 0.9% 1000ML 1,000 ML IV PRN (07:00)
[2021-10-21] MEDS ORDERED: EPOETIN ALFA 4,000 UNIT/ML VIAL IV SCH (07:00)
[2021-10-21 08:17] LABS: Hematocrit (blood only) 29.8 % (42-52); Hemoglobin 9.2 g/dL (14.0-18.0); Mean Corpuscular Hemoglobin 28.1 pg (25-34); Mean Corpuscular Hgb Conc 30.9 g/dL (32-36); Mean Corpuscular Volume 91.1 fL (80-100); Mean Platelet Volume 9.7 fL (7.4-10.4); Platelet Count 383 K/uL (130-400); RDW Coefficient of Variation 17.5 % (11.5-14.5); RDW Standard Deviation 58.7 fL (36.4-46.3); Red Blood Count 3.27 M/uL (4.7-6.1); White Blood Count 9.37 K/uL (4.8-10.8)
[2021-10-21 08:29] LABS: Prothrombin Time 18.9 Seconds (9.0-12.0)
[2021-10-21 08:56] LABS: BUN Creatinine Ratio 10.2 (10-20); Calcium 9.1 mg/dl (8.5-10.1); Creatinine Clr Calc Pharmacy 11.5 ml/min; Est GFR (African American) 7.6 ml/min; Est GFR (Non-African American) 6.6 ml/min
[2021-10-21] MEDS ORDERED: INSULIN HUMAN NPH SC SCH (09:00)
[2021-10-21] MEDS: INSULIN ASPART 100 UNITS/ML 3 ML PEN SC SCH ×4 (09:02→21:43)
--- NOTE | 2021-10-21 14:03 | Dialysis Progress Note ---
Date of Service October 21, 2021 Assessment & Plan Admission and Anticipated Discharge Date Admission Date: October 03, 2021 Subjective [facility], [id number] Dialysis Progress Note Signed Patient:SAMEER ARCOS Admit Date:10/03/21 MR#:[id number] Att Phy:Morgan Denise MD Acct ID:[id number] Radha Phy:Aaron Peña M.D. Date:1945 Fam Phy: Age:75 Location:3W Sex:M Room/Bed:W6-1 cc: ~ *NOTICE TO RECEIVING [employer]/AGENCY This information is strictly Confidential and protected under [place] law. [place] law prohibits you from making any further disclosure of this information unless further disclosure is expressly permitted by the written consent of the person to whom it pertains or is authorized by law. A general authorization for the release of medical or other information is not sufficient for this purpose. Hospital accepts no responsibility if the information is made available to any other person, INCLUDING THE PATIENT. Assessment & Plan (1) Acute kidney injury: Plan: CKD 4 and now ESRD, with new start to dialysis Conintue HD--3hrs and take 2.5 off on 2 K bath. On Procrit and heparin. previously w/ CKD stage 4/5, with his serum creatinine in early to mid fours, and has been resistant to the idea of dialysis in the past but changed his mind and started here. now on chronic HD chemistries ok -daily bmp, hgb -continue torsemide 100, metolazone 5 daily -awaiting bed at [facility] -cont low sodium diet, 1.5L FR Subjective Seen during Dialysis. Feels much better breathing. hardly any edema now. CVC fine. BP is ok so far. Review of Systems Review of Systems: All systems reviewed & are unremarkable except as noted in Subjective Physical Exam Constitutional: well developed and well nourished on 02nc; NAD Eyes: EOM intact bilaterally ENMT: Ears: no external ear abnormality Nose: no external nose abnormality Mouth: + dry oral mucous membranes Neck: no nuchal rigidity Respiratory: normal respiratory effort Auscultation: + diminished lung sounds and + crackles (bibasilar) Cardiovascular: Rate/Rhythm: regular rate and regular rhythm Heart Sounds: + murmur Extremities: no edema Gastrointestinal (Abdomen): Inspection/Auscultation: normal bowel sounds Percussion/Palpation: abdomen soft; abdomen nontender Musculoskeletal: Extremities: strength 5/5 throughout and + leg length discrepancy (R AKA) Skin: no rashes, warm and dry Psychiatric: Orientation: alert and oriented x 3 Results & Data ([facility]) Vital Signs (Past 12 Hours) Vital Signs Temp Pulse Resp BP Pulse Ox 10/21/21 07:33 36.9 C 60 18 126/64 97
[2021-10-21] MEDS: HEPARIN SOD (PORCINE) 1000 UNIT/ML IV SCH ×2 (15:15→15:56)
--- NOTE | 2021-10-21 17:43 | Hospitalist Progress Note ---
Date of Service October 21, 2021 Assessment & Plan (1) Acute exacerbation of CHF (congestive heart failure): Plan: 75yo Male PMH CHF, DM2, CKD IV, afib on warfarin, CAD, HTN, HLD, ICD placement, chronic venous stasis here for SOB. - Appears this is likely an acute decompensation in the setting of worsening renal function - Remains on supplemental O2 and will wean as tolerated - feels SOB is only present with exertion (family also states he doesn't move much so suspect some may be deconditioning) - Recommend saturations of 90 or better; given body habitus suspect hypoventilation syndrome and possibly PINKY. May benefit from outpatient testing as he does desaturate when sleeping - Given the amiodarone and still requiring supplemental O2 after diuresis - possibly could be a component of interstitial pneumonitis? cxr is not classic for this so unlikely, and could be sob due to deconditioning. As well, did encourage to take deeper breaths as this may be contributing - recommend cardiology follow up as outpatient - Has completed HD x 3 initial sessions and tolerating subsequent treatments - plan for MWF sessions - down approx 25+ lbs since admission - Cardiology followed/sign off - no change in recommendation - following diuretics as guided by nephrology (2) CKD (chronic kidney disease) stage 4, GFR 15-29 ml/min: Plan: Acute Kidney Injury/Suspect ATN Superimposed on CKD IV - Now End Stage with HD Initiated - Ultimately agreed to HD and currently tolerating; S/P perm cath insertion on 10/11 - Continue Torsemide 100 mg daily and Metolazone 5 mg daily - Nephrology continues to support use of diuretics (3) T2DM (type 2 diabetes mellitus): Plan: DM2 -glycemic consult placed -correction officer head consulted -07/2021 A1c 9.3 (4) Hypertension: Plan: - STABLE - continue hydralazine 25 mg BID (reduced) - continue metoprolol tartrate 50mg BID - isosorbide also helps (5) Atrial fibrillation: Plan: Atrial Fibrillation on Warfarin with Supratherapeutic INR on presentation - Has ICD/Pacer; H/O Ventricular Fibrillation - Coumadin resumed and INR therapeutic at 2.0 - Continue Amiodarone 200 mg BID; Metoprolol Tartrate 50 mg BID (6) Venous stasis ulcer of left lower extremity: Plan: - Elevated - Now with self removal of 4th toenail - wound consulted (7) Hypothyroidism: Plan: - clinically stable - continue levothyroxine 112 mcg - 12/2020 TSH 3.51 (8) Anemia: Plan: anemia of chronic disease - Hgb at 8-9 and relatively stable - Vitals are stable - no indication for transfusion at this time; receiving Venofer with HD with Nephrology oversight Plan: Continue HD on MWF Awaiting dialysis bed at [facility] - medically stable for d/c when bed available Case management on board Admission and Anticipated Discharge Date Admission Date: October 03, 2021 Subjective Mr. Warren was seen on rounds this morning. Remains hospitalized for acute decompensated CHF due to worsening renal failure. He has been started on HD during and is tolerating treatments. He is currently awaiting a dialysis bed at [facility]. He denies dyspnea at present, denies chest pain, n/v/d, f/c, headache, or gu symptoms. He is still requiring supplemental O2, currently on 3L via nasal cannula. No acute issues verbalized by RN. Review of Systems Review of Systems: CONSTITUTIONAL: Denies weight loss/gain, fever and chills, fatigue, malaise, generalized weakness. HEENT: Denies changes in vision and hearing. RESPIRATORY: Denies SOB, cough, wheezing. CV: Denies palpitations, CP, lower extremity edema, orthopnea, PND. GI: Denies abdominal pain, nausea, vomiting and diarrhea. : Denies dysuria and urinary frequency, urgency, hesitancy. MUSCULOSKELETAL: Denies myalgia and joint pain. SKIN: Denies rash and pruritus. NEUROLOGICAL: Denies headache, syncope, focal weakness, numbness, tingling. PSYCHIATRIC: Denies recent changes in mood. Denies anxiety and depression. Physical Exam Physical Exam: GENERAL: 75 yo Well-developed, well-nourished, pleasant WM. NAD. LUNGS: Clear to auscultation bilaterally. No accessory muscle use. No W/R/R. CARDIOVASCULAR: Regular rate and rhythm. +3/6 blowing systolic murmur. No G/R. ABDOMEN: Soft, NT/ND. No palpable masses. Bowel sounds normoactive x 4 quad. EXTREMITIES: No edema. Non-tender. Peripheral pulses +2/4. PSYCHIATRIC: Cooperative. Appropriate mood and affect. SKIN: Warm, dry, intact. No rashes or lesions. Permcath site looks clean/dry, no erythema. Results & Data Results & Data ([facility]) Vital Signs (Past 12 Hours) Vital Signs Temp Pulse Pulse Pulse Resp BP BP 10/21/21 16:20 64 116/60 10/21/21 16:00 64 117/64 10/21/21 15:40 64 118/65 10/21/21 15:20 64 114/65 10/21/21 15:00 65 120/65 10/21/21 14:40 66 119/63 10/21/21 14:20 66 115/58 L 10/21/21 14:00 66 120/71 10/21/21 13:47 36.7 C 65 10/21/21 07:33 36.9 C 60 18 126/64 Pulse Ox 10/21/21 16:20 10/21/21 16:00 10/21/21 15:40 10/21/21 15:20 10/21/21 15:00 10/21/21 14:40 10/21/21 14:20 10/21/21 14:00 10/21/21 13:47 10/21/21 07:33 97 Laboratory Results 10/21/21 07:36 10/21/21 07:36 PG Care Time/CCT Total # of Minutes Spent Total Time Spent with Patient: Total time spent is greater than 50% in coordination of care (as documented) at patient's floor/unit and/or counseling patient: Coding Level of Care Code 22620 Subseq Hosp Care Lvl 2 Diagnoses Acute exacerbation of CHF (congestive heart failure) I50.9 Heart failure type: unspecified CKD (chronic kidney disease) stage 4, GFR 15-29 ml/min N18.4 T2DM (type 2 diabetes mellitus) E11.9 Hypertension I10 Hypertension type: essential hypertension Atrial fibrillation I48.91 Atrial fibrillation type: unspecified Venous stasis ulcer of left lower extremity I83.029; L97.929 Hypothyroidism E03.9 Hypothyroidism type: acquired Anemia D64.9 (1) Acute exacerbation of CHF (congestive heart failure) Heart failure type: unspecified Qualified Code(s): I50.9 - Heart failure, unspecified (2) Hypertension Hypertension type: essential hypertension Qualified Code(s): I10 - Essential (primary) hypertension (3) Atrial fibrillation Atrial fibrillation type: unspecified Qualified Code(s): I48.91 - Unspecified atrial fibrillation (4) Hypothyroidism Hypothyroidism type: acquired Qualified Code(s): E03.9 - Hypothyroidism, unspecified
[2021-10-21] MEDS: metOLazone 5 MG TABLET PO SCH (18:41)
[2021-10-21] MEDS: AMIODARONE 200 MG TAB PO SCH ×2 (18:42→21:45)
[2021-10-21] MEDS: WARFARIN SOD 5 MG TAB PO SCH (18:43)
[2021-10-21] MEDS: allopurinoL 300 MG TAB PO SCH (18:43)
[2021-10-21] MEDS: TORSEMIDE 100 MG TAB PO SCH (18:43)
[2021-10-21] MEDS: CHOLECALCIFEROL 1,000 UNITS 25 MCG TAB PO SCH (18:44)
[2021-10-21] MEDS: OMEGA-3 (PURIFIED FISH OIL) 1 GM CAP PO SCH (18:44)
[2021-10-21] MEDS: ATORVASTATIN 10 MG TAB PO SCH (18:44)
[2021-10-21] MEDS: FENOFIBRATE NANOCRYSTALLIZED 48 MG TABLET PO SCH (18:45)
[2021-10-21] MEDS: ASCORBIC ACID 500 MG TAB PO SCH (18:45)
[2021-10-21] MEDS: DOCUSATE SODIUM/SENNA 50/8.6MG TAB PO SCH (18:46)
[2021-10-21] MEDS: METOPROLOL TARTRATE 50 MG TAB PO SCH ×2 (18:46→21:44)
[2021-10-21] MEDS: hydrALAZINE HCL 25 MG TAB PO SCH ×2 (18:46→21:45)
[2021-10-21] MEDS: POLYETHYLENE (MIRALAX) 17 GM PACK PO SCH ×2 (18:46→21:45)
[2021-10-21] MEDS: LIDOCAINE 5% 1 PATCH TD SCH (18:48)
[2021-10-21] MEDS: INSULIN HUMAN NPH SC SCH (21:43)
[2021-10-22] MEDS: ISOSORBIDE DINITRATE 20 MG TAB PO SCH ×3 (06:05→18:11)
[2021-10-22] MEDS: LEVOTHYROXINE SODIUM 112 MCG TABLET PO SCH (06:06)
[2021-10-22] MEDS: hydrALAZINE HCL 25 MG TAB PO SCH ×2 (07:44→20:21)
[2021-10-22] MEDS: AMIODARONE 200 MG TAB PO SCH ×2 (07:44→20:20)
[2021-10-22] MEDS: METOPROLOL TARTRATE 50 MG TAB PO SCH ×2 (07:45→20:20)
[2021-10-22] MEDS: INSULIN HUMAN NPH SC SCH ×2 (09:45→20:38)
[2021-10-22] MEDS: INSULIN ASPART 100 UNITS/ML 3 ML PEN SC SCH ×4 (09:46→20:37)
[2021-10-22] MEDS: DOCUSATE SODIUM/SENNA 50/8.6MG TAB PO SCH (09:52)
[2021-10-22] MEDS: metOLazone 5 MG TABLET PO SCH (09:52)
[2021-10-22] MEDS: TORSEMIDE 100 MG TAB PO SCH (09:52)
[2021-10-22] MEDS: FENOFIBRATE NANOCRYSTALLIZED 48 MG TABLET PO SCH (09:53)
[2021-10-22] MEDS: CHOLECALCIFEROL 1,000 UNITS 25 MCG TAB PO SCH (09:53)
[2021-10-22] MEDS: ASCORBIC ACID 500 MG TAB PO SCH (09:53)
[2021-10-22] MEDS: allopurinoL 300 MG TAB PO SCH (09:53)
[2021-10-22] MEDS: ATORVASTATIN 10 MG TAB PO SCH (09:54)
[2021-10-22] MEDS: OMEGA-3 (PURIFIED FISH OIL) 1 GM CAP PO SCH (09:54)
[2021-10-22] MEDS: LIDOCAINE 5% 1 PATCH TD SCH (10:45)
[2021-10-22] MEDS: POLYETHYLENE (MIRALAX) 17 GM PACK PO SCH ×2 (10:45→20:18)
--- NOTE | 2021-10-22 14:30 | Hospitalist Progress Note ---
Date of Service October 22, 2021 Assessment & Plan (1) Acute exacerbation of CHF (congestive heart failure): Plan: 75yo Male PMH CHF, DM2, CKD IV, afib on warfarin, CAD, HTN, HLD, ICD placement, chronic venous stasis here for SOB. - Appears this is likely an acute decompensation in the setting of worsening renal function - Remains on supplemental O2 and will wean as tolerated - feels SOB is only present with exertion (family also states he doesn't move much so suspect some may be deconditioning) - Recommend saturations of 90 or better; given body habitus suspect hypoventilation syndrome and possibly PINKY. May benefit from outpatient testing as he does desaturate when sleeping - Given the amiodarone and still requiring supplemental O2 after diuresis - possibly could be a component of interstitial pneumonitis? cxr is not classic for this so unlikely, and could be sob due to deconditioning. As well, did encourage to take deeper breaths as this may be contributing - recommend cardiology follow up as outpatient - Has completed HD x 3 initial sessions and tolerating subsequent treatments - plan for MWF sessions - down approx 25+ lbs since admission - Cardiology followed/sign off - no change in recommendation - following diuretics as guided by nephrology (2) CKD (chronic kidney disease) stage 4, GFR 15-29 ml/min: Plan: Acute Kidney Injury/Suspect ATN Superimposed on CKD IV - Now End Stage with HD Initiated - Ultimately agreed to HD and currently tolerating; S/P perm cath insertion on 10/11 - Continue Torsemide 100 mg daily and Metolazone 5 mg daily - Nephrology continues to support use of diuretics (3) T2DM (type 2 diabetes mellitus): Plan: DM2 - glycemic consult placed - stone breaker consulted - 07/2021 A1c 9.3 (4) Hypertension: Plan: - STABLE - continue hydralazine 25 mg BID (reduced) - continue metoprolol tartrate 50mg BID - isosorbide also helps (5) Atrial fibrillation: Plan: Atrial Fibrillation on Warfarin with Supratherapeutic INR on presentation - Has ICD/Pacer; H/O Ventricular Fibrillation - Coumadin resumed and INR therapeutic at 2.0 - Continue Amiodarone 200 mg BID; Metoprolol Tartrate 50 mg BID (6) Venous stasis ulcer of left lower extremity: Plan: - Elevated - Now with self removal of 4th toenail - wound consulted (7) Hypothyroidism: Plan: - clinically stable - continue levothyroxine 112 mcg - 12/2020 TSH 3.51 (8) Anemia: Plan: anemia of chronic disease - Hgb at 8-9 and relatively stable - Vitals are stable - no indication for transfusion at this time; receiving Venofer with HD with Nephrology oversight Plan: Continue HD on MWF Awaiting dialysis bed at [facility] - medically stable for d/c when bed available Case management on board Admission and Anticipated Discharge Date Admission Date: October 03, 2021 Subjective Mr. Warren was seen on rounds this morning. Remains hospitalized for acute decompensated CHF due to worsening renal failure. He has been started on HD during and is tolerating treatments. He is currently awaiting a dialysis bed at [facility]. He denies dyspnea at present, denies chest pain, n/v/d, f/c, headache, or gu symptoms. He is still requiring supplemental O2, currently on 3L via nasal cannula. No acute issues verbalized by RN. Review of Systems Review of Systems: CONSTITUTIONAL: Denies weight loss/gain, fever and chills, fatigue, malaise, generalized weakness. HEENT: Denies changes in vision and hearing. RESPIRATORY: Denies SOB, cough, wheezing. CV: Denies palpitations, CP, lower extremity edema, orthopnea, PND. GI: Denies abdominal pain, nausea, vomiting and diarrhea. : Denies dysuria and urinary frequency, urgency, hesitancy. MUSCULOSKELETAL: Denies myalgia and joint pain. SKIN: Denies rash and pruritus. NEUROLOGICAL: Denies headache, syncope, focal weakness, numbness, tingling. PSYCHIATRIC: Denies recent changes in mood. Denies anxiety and depression. Physical Exam Physical Exam: GENERAL: 75 yo Well-developed, well-nourished, pleasant WM. NAD. LUNGS: Clear to auscultation bilaterally. No accessory muscle use. No W/R/R. CARDIOVASCULAR: Regular rate and rhythm. +3/6 blowing systolic murmur. No G/R. ABDOMEN: Soft, NT/ND. No palpable masses. Bowel sounds normoactive x 4 quad. EXTREMITIES: No edema. Non-tender. S/P R BKA. PSYCHIATRIC: Cooperative. Appropriate mood and affect. SKIN: Warm, dry, intact. No rashes or lesions. Permcath site looks clean/dry, no erythema. Results & Data Results & Data ([facility]) Vital Signs (Past 12 Hours) Vital Signs Temp Pulse Resp BP Pulse Ox 10/22/21 07:32 36.8 C 60 16 104/64 98 Laboratory Results No labs today Labs prior to HD PG Care Time/CCT Total # of Minutes Spent Total Time Spent with Patient: Total time spent is greater than 50% in coordination of care (as documented) at patient's floor/unit and/or counseling patient: Coding Level of Care Code 46974 Subseq Hosp Care Lvl 2 Diagnoses Acute exacerbation of CHF (congestive heart failure) I50.9 Heart failure type: unspecified CKD (chronic kidney disease) stage 4, GFR 15-29 ml/min N18.4 T2DM (type 2 diabetes mellitus) E11.9 Hypertension I10 Hypertension type: essential hypertension Atrial fibrillation I48.91 Atrial fibrillation type: unspecified Venous stasis ulcer of left lower extremity I83.029; L97.929 Hypothyroidism E03.9 Hypothyroidism type: acquired Anemia D64.9 (1) Acute exacerbation of CHF (congestive heart failure) Heart failure type: unspecified Qualified Code(s): I50.9 - Heart failure, unspecified (2) Hypertension Hypertension type: essential hypertension Qualified Code(s): I10 - Essential (primary) hypertension (3) Atrial fibrillation Atrial fibrillation type: unspecified Qualified Code(s): I48.91 - Unspecified atrial fibrillation (4) Hypothyroidism Hypothyroidism type: acquired Qualified Code(s): E03.9 - Hypothyroidism, unspecified
[2021-10-22] MEDS: WARFARIN SOD 5 MG TAB PO SCH (18:11)
[2021-10-23] MEDS: LEVOTHYROXINE SODIUM 112 MCG TABLET PO SCH (06:24)
[2021-10-23] MEDS: ISOSORBIDE DINITRATE 20 MG TAB PO SCH ×3 (06:25→17:51)
[2021-10-23] MEDS ORDERED: HEPARIN SOD (PORCINE) 1000 UNIT/ML IV ONE (07:00)
[2021-10-23] MEDS ORDERED: SODIUM CHLORIDE 0.9% 1000ML 1,000 ML IV PRN (07:00)
[2021-10-23] MEDS ORDERED: EPOETIN ALFA 10,000 UNITS/ML VIAL IV ONE (07:00)
[2021-10-23] MEDS: INSULIN HUMAN NPH SC SCH ×2 (07:46→20:32)
[2021-10-23] MEDS: INSULIN ASPART 100 UNITS/ML 3 ML PEN SC SCH ×5 (07:46→21:07)
[2021-10-23] MEDS: LIDOCAINE 5% 1 PATCH TD SCH (07:48)
[2021-10-23] MEDS: POLYETHYLENE (MIRALAX) 17 GM PACK PO SCH ×2 (07:49→20:25)
[2021-10-23] MEDS: hydrALAZINE HCL 25 MG TAB PO SCH ×2 (10:06→20:23)
[2021-10-23] MEDS: metOLazone 5 MG TABLET PO SCH (10:06)
[2021-10-23] MEDS: AMIODARONE 200 MG TAB PO SCH ×3 (10:06→20:19)
[2021-10-23] MEDS: METOPROLOL TARTRATE 50 MG TAB PO SCH ×2 (10:07→20:24)
[2021-10-23] MEDS: TORSEMIDE 100 MG TAB PO SCH (10:07)
--- NOTE | 2021-10-23 10:14 | Nephrology Progress Note ---
Date of Service October 23, 2021 Assessment & Plan Admission and Anticipated Discharge Date Admission Date: October 03, 2021 Subjective Assessment & Plan (1) Acute kidney injury: Plan: CKD 4 and now ESRD, with new start to dialysis Conintue HD today --3hrs and take 2.5 off on 2 K bath. On Procrit and heparin. previously w/ CKD stage 4/5, with his serum creatinine in early to mid fours, and has been resistant to the idea of dialysis in the past but changed his mind and started here. now on chronic HD chemistries ok -daily bmp, hgb -continue torsemide 100, metolazone 5 daily -awaiting bed at [facility] -cont low sodium diet, 1.5L FR Subjective Feels much better breathing. hardly any edema now. CVC fine. BP is ok so far. Review of Systems Review of Systems: All systems reviewed & are unremarkable except as noted in Subjective Physical Exam Constitutional: well developed and well nourished on 02nc; NAD Eyes: EOM intact bilaterally ENMT: Ears: no external ear abnormality Nose: no external nose abnormality Mouth: + dry oral mucous membranes Neck: no nuchal rigidity Respiratory: normal respiratory effort Auscultation: + diminished lung sounds and + crackles (bibasilar) Cardiovascular: Rate/Rhythm: regular rate and regular rhythm Heart Sounds: + murmur Extremities: no edema Gastrointestinal (Abdomen): Inspection/Auscultation: normal bowel sounds Percussion/Palpation: abdomen soft; abdomen nontender Musculoskeletal: Extremities: strength 5/5 throughout and + leg length discrepancy (R AKA) Skin: no rashes, warm and dry Psychiatric: Orientation: alert and oriented x 3 Results & Data ([facility]) Vital Signs (Past 12 Hours) Vital Signs Temp Pulse Resp BP Pulse Ox 10/23/21 07:40 18 93 10/23/21 07:05 36.5 C 60 18 113/67 93 10/23/21 06:21 60 124/68 10/22/21 22:20 36.8 C 61 18 125/71 92
[2021-10-23] MEDS: ATORVASTATIN 10 MG TAB PO SCH (10:19)
[2021-10-23] MEDS: allopurinoL 300 MG TAB PO SCH (10:20)
[2021-10-23] MEDS: CHOLECALCIFEROL 1,000 UNITS 25 MCG TAB PO SCH (10:20)
[2021-10-23] MEDS: ASCORBIC ACID 500 MG TAB PO SCH (10:20)
[2021-10-23] MEDS: FENOFIBRATE NANOCRYSTALLIZED 48 MG TABLET PO SCH (10:20)
[2021-10-23] MEDS: OMEGA-3 (PURIFIED FISH OIL) 1 GM CAP PO SCH (10:20)
[2021-10-23] MEDS: DOCUSATE SODIUM/SENNA 50/8.6MG TAB PO SCH (10:20)
--- NOTE | 2021-10-23 13:15 | Hospitalist Progress Note ---
Date of Service October 23, 2021 Assessment & Plan (1) Acute exacerbation of CHF (congestive heart failure): Plan: 75yo Male PMH CHF, DM2, CKD IV, afib on warfarin, CAD, HTN, HLD, ICD placement, chronic venous stasis here for SOB. - Appears this is likely an acute decompensation in the setting of worsening renal function - Remains on supplemental O2 and will wean as tolerated - feels SOB is only present with exertion (family also states he doesn't move much so suspect some may be deconditioning) - Recommend saturations of 90 or better; given body habitus suspect hypoventilation syndrome and possibly PINKY. May benefit from outpatient testing as he does desaturate when sleeping - Will need cardiology follow up as outpatient - Has completed HD x 3 initial sessions and tolerating subsequent treatments - plan for MWF sessions - down approx 25+ lbs since admission - Cardiology followed/sign off - no change in recommendation - following diuretics as guided by nephrology (2) CKD (chronic kidney disease) stage 4, GFR 15-29 ml/min: Plan: Acute Kidney Injury/Suspect ATN Superimposed on CKD IV - Now End Stage with HD Initiated - Ultimately agreed to HD and currently tolerating; S/P perm cath insertion on 10/11 - Continue Torsemide 100 mg daily and Metolazone 5 mg daily - Nephrology continues to support use of diuretics (3) T2DM (type 2 diabetes mellitus): Plan: DM2 - glycemic consult placed - accounts payable representative consulted - 07/2021 A1c 9.3 - sugars ranging 120-190s (4) Hypertension: Plan: - Stable with good control - continue hydralazine 25 mg BID (reduced) - continue metoprolol tartrate 50mg BID - isosorbide also helps (5) Atrial fibrillation: Plan: Atrial Fibrillation on Warfarin with Supratherapeutic INR on presentation - Has ICD/Pacer; H/O Ventricular Fibrillation - Coumadin resumed and INR therapeutic at 2.0 - Continue Amiodarone 200 mg BID; Metoprolol Tartrate 50 mg BID (6) Venous stasis ulcer of left lower extremity: Plan: - Elevated - Now with self removal of 4th toenail - pan greaser following, recommending double thick Xeroform and secure w/ bandaid daily (7) Hypothyroidism: Plan: - clinically stable - continue levothyroxine 112 mcg - 12/2020 TSH 3.51 (8) Anemia: Plan: anemia of chronic disease - Hgb at 8-9 and relatively stable - Vitals are stable - no indication for transfusion at this time; receiving Venofer with HD with Nephrology oversight Plan: Continue HD on MWF Awaiting dialysis bed at [facility] - medically stable for d/c when bed available Case management on board - awaiting insurance auth for outpatient dialysis Admission and Anticipated Discharge Date Admission Date: October 03, 2021 Subjective Mr. Warren was seen on rounds this morning. Remains hospitalized for acute decompensated CHF due to worsening renal failure. He has been started on HD (MWF) and is tolerating treatments. He is currently awaiting a dialysis bed at [facility]. He denies dyspnea at present, denies chest pain, n/v/d, f/c, headache, or gu symptoms. He no longer requiring supplemental O2. Review of Systems Review of Systems: CONSTITUTIONAL: Denies weight loss/gain, fever and chills, fatigue, malaise, generalized weakness. HEENT: Denies changes in vision and hearing. RESPIRATORY: Denies SOB, cough, wheezing. CV: Denies palpitations, CP, lower extremity edema, orthopnea, PND. GI: Denies abdominal pain, nausea, vomiting and diarrhea. : Denies dysuria and urinary frequency, urgency, hesitancy. MUSCULOSKELETAL: Denies myalgia and joint pain. SKIN: Denies rash and pruritus. NEUROLOGICAL: Denies headache, syncope, focal weakness, numbness, tingling. PSYCHIATRIC: Denies recent changes in mood. Denies anxiety and depression. Physical Exam Physical Exam: GENERAL: 75 yo Well-developed, well-nourished, pleasant WM. NAD. LUNGS: Clear to auscultation bilaterally. No accessory muscle use. No W/R/R. CARDIOVASCULAR: Regular rate and rhythm. 3/6 blowing systolic murmur. No G/R. ABDOMEN: Soft, NT/ND. No palpable masses. Bowel sounds normoactive x 4 quad. EXTREMITIES: No edema. Non-tender. S/P R BKA. PSYCHIATRIC: Cooperative. Appropriate mood and affect. SKIN: Warm, dry, intact. No rashes or lesions. Permcath site looks clean/dry, no erythema. Results & Data Results & Data ([facility]) Vital Signs (Past 12 Hours) Vital Signs Temp Pulse Pulse Pulse Resp BP BP 12/01/21 13:00 65 131/61 10/23/21 12:40 68 115/65 10/23/21 12:20 67 128/67 10/23/21 12:00 68 123/63 10/23/21 11:40 67 122/84 10/23/21 11:20 67 121/70 10/23/21 11:10 36.9 C 68 10/23/21 07:40 18 10/23/21 07:05 36.5 C 60 18 113/67 10/23/21 06:21 60 124/68 Pulse Ox 10/23/21 13:00 10/23/21 12:40 10/23/21 12:20 10/23/21 12:00 10/23/21 11:40 10/23/21 11:20 10/23/21 11:10 10/23/21 07:40 93 10/23/21 07:05 93 10/23/21 06:21 PG Care Time/CCT Total # of Minutes Spent Total Time Spent with Patient: Total time spent is greater than 50% in coordination of care (as documented) at patient's floor/unit and/or counseling patient: Coding Level of Care Code 52196 Subseq Hosp Care Lvl 2 Diagnoses Acute exacerbation of CHF (congestive heart failure) I50.9 Heart failure type: unspecified CKD (chronic kidney disease) stage 4, GFR 15-29 ml/min N18.4 T2DM (type 2 diabetes mellitus) E11.9 Hypertension I10 Hypertension type: essential hypertension Atrial fibrillation I48.91 Atrial fibrillation type: unspecified Venous stasis ulcer of left lower extremity I83.029; L97.929 Hypothyroidism E03.9 Hypothyroidism type: acquired Anemia D64.9 (1) Acute exacerbation of CHF (congestive heart failure) Heart failure type: unspecified Qualified Code(s): I50.9 - Heart failure, unspecified (2) Hypertension Hypertension type: essential hypertension Qualified Code(s): I10 - Essential (primary) hypertension (3) Atrial fibrillation Atrial fibrillation type: unspecified Qualified Code(s): I48.91 - Unspecified atrial fibrillation (4) Hypothyroidism Hypothyroidism type: acquired Qualified Code(s): E03.9 - Hypothyroidism, unspecified
[2021-10-23] MEDS: HEPARIN SOD (PORCINE) 1000 UNIT/ML IV SCH ×2 (13:21→13:22)
[2021-10-23] MEDS: WARFARIN SOD 5 MG TAB PO SCH (15:51)
[2021-10-24] MEDS: LEVOTHYROXINE SODIUM 112 MCG TABLET PO SCH (06:36)
[2021-10-24] MEDS: ISOSORBIDE DINITRATE 20 MG TAB PO SCH ×3 (06:36→18:22)
[2021-10-24] MEDS ORDERED: INSULIN ASPART 100 UNITS/ML 3 ML PEN SC SCH (07:45)
[2021-10-24] MEDS: AMIODARONE 200 MG TAB PO SCH ×2 (08:21→19:53)
[2021-10-24] MEDS: allopurinoL 300 MG TAB PO SCH (08:21)
[2021-10-24] MEDS: ASCORBIC ACID 500 MG TAB PO SCH (08:22)
[2021-10-24] MEDS: ATORVASTATIN 10 MG TAB PO SCH (08:22)
[2021-10-24] MEDS: CHOLECALCIFEROL 1,000 UNITS 25 MCG TAB PO SCH (08:23)
[2021-10-24] MEDS: DOCUSATE SODIUM/SENNA 50/8.6MG TAB PO SCH (08:23)
[2021-10-24] MEDS: hydrALAZINE HCL 25 MG TAB PO SCH ×2 (08:24→19:53)
[2021-10-24] MEDS: FENOFIBRATE NANOCRYSTALLIZED 48 MG TABLET PO SCH (08:24)
[2021-10-24] MEDS: OMEGA-3 (PURIFIED FISH OIL) 1 GM CAP PO SCH (08:24)
[2021-10-24] MEDS: metOLazone 5 MG TABLET PO SCH (08:25)
[2021-10-24] MEDS: INSULIN HUMAN NPH SC SCH ×2 (08:28→20:58)
[2021-10-24] MEDS: METOPROLOL TARTRATE 50 MG TAB PO SCH ×2 (08:33→19:53)
[2021-10-24] MEDS: POLYETHYLENE (MIRALAX) 17 GM PACK PO SCH ×2 (08:34→19:54)
[2021-10-24] MEDS: TORSEMIDE 100 MG TAB PO SCH (08:34)
--- NOTE | 2021-10-24 08:59 | Hospitalist Progress Note ---
Date of Service October 24, 2021 Assessment & Plan (1) Acute exacerbation of CHF (congestive heart failure): Plan: 75yo Male PMH CHF, DM2, CKD IV, afib on warfarin, CAD, HTN, HLD, ICD placement, chronic venous stasis here for SOB. - Appears this is likely an acute decompensation in the setting of worsening renal function - Remains on supplemental O2 and will wean as tolerated - feels SOB is only present with exertion (family also states he doesn't move much so suspect some may be deconditioning) - Recommend saturations of 90 or better; given body habitus suspect hypoventilation syndrome and possibly PINKY. May benefit from outpatient testing as he does desaturate when sleeping - Will need cardiology follow up as outpatient - Has completed HD x 3 initial sessions and tolerating subsequent treatments - plan for MWF sessions - down approx 25+ lbs since admission - Cardiology followed/sign off - no change in recommendation - following diuretics as guided by nephrology (2) CKD (chronic kidney disease) stage 4, GFR 15-29 ml/min: Plan: Acute Kidney Injury/Suspect ATN Superimposed on CKD IV - Now End Stage with HD Initiated - Ultimately agreed to HD and currently tolerating; S/P perm cath insertion on 10/11 - Continue Torsemide 100 mg daily and Metolazone 5 mg daily - Nephrology continues to support use of diuretics (3) T2DM (type 2 diabetes mellitus): Plan: DM2 - glycemic consult placed - watch assembly inspector consulted - 07/2021 A1c 9.3 - sugars ranging 120-190s (4) Hypertension: Plan: - Stable with good control - continue hydralazine 25 mg BID (reduced) - continue metoprolol tartrate 50mg BID - isosorbide also helps (5) Atrial fibrillation: Plan: Atrial Fibrillation on Warfarin with Supratherapeutic INR on presentation - Has ICD/Pacer; H/O Ventricular Fibrillation - Coumadin resumed and INR therapeutic at 2.0 - Continue Amiodarone 200 mg BID; Metoprolol Tartrate 50 mg BID (6) Venous stasis ulcer of left lower extremity: Plan: - Elevated - Now with self removal of 4th toenail - electro optical engineer following, recommending double thick Xeroform and secure w/ bandaid daily (7) Hypothyroidism: Plan: - clinically stable - continue levothyroxine 112 mcg - 12/2020 TSH 3.51 (8) Anemia: Plan: anemia of chronic disease - Hgb at 8-9 and relatively stable - Vitals are stable - no indication for transfusion at this time; receiving Venofer with HD with Nephrology oversight Plan: Continue HD on MWF Labs ordered for tomorrow morning Awaiting dialysis bed at [facility] - medically stable for d/c when bed available Case management following - awaiting insurance auth for outpatient dialysis Admission and Anticipated Discharge Date Admission Date: October 03, 2021 Subjective Mr. Warren was seen on rounds this morning. Remains hospitalized for acute decompensated CHF due to worsening renal failure. He has been started on HD (MWF) and is tolerating treatments. He is currently awaiting a dialysis bed at [facility]. He denies dyspnea at present, denies chest pain, n/v/d, f/c, headache, or gu symptoms. He no longer requiring supplemental O2. Review of Systems Review of Systems: CONSTITUTIONAL: Denies weight loss/gain, fever and chills, fatigue, malaise, generalized weakness. HEENT: Denies changes in vision and hearing. RESPIRATORY: Denies SOB, cough, wheezing. CV: Denies palpitations, CP, lower extremity edema, orthopnea, PND. GI: Denies abdominal pain, nausea, vomiting and diarrhea. : Decreased urine output. Denies dysuria and urinary frequency, urgency, hesitancy. MUSCULOSKELETAL: Denies myalgia and joint pain. SKIN: Denies rash and pruritus. NEUROLOGICAL: Denies headache, syncope, focal weakness, numbness, tingling. PSYCHIATRIC: Denies recent changes in mood. Denies anxiety and depression. Physical Exam Physical Exam: GENERAL: 75 yo Well-developed, well-nourished, pleasant WM. NAD. LUNGS: Clear to auscultation bilaterally. No accessory muscle use. No W/R/R. CARDIOVASCULAR: Regular rate and rhythm. 3/6 blowing systolic murmur. No G/R. ABDOMEN: Soft, NT/ND. No palpable masses. Bowel sounds normoactive x 4 quad. EXTREMITIES: No edema. Non-tender. S/P R BKA. PSYCHIATRIC: Cooperative. Appropriate mood and affect. SKIN: Warm, dry, intact. No rashes or lesions. Permcath site looks clean/dry, no erythema. Results & Data Results & Data ([facility]) Vital Signs (Past 12 Hours) Vital Signs Temp Pulse Resp BP Pulse Ox 10/24/21 07:27 37 C 62 16 105/59 L 97 10/23/21 22:57 85 L 10/23/21 22:20 37.0 C 60 18 121/65 92 PG Care Time/CCT Total # of Minutes Spent Total Time Spent with Patient: Total time spent is greater than 50% in coordination of care (as documented) at patient's floor/unit and/or counseling patient: Coding Level of Care Code 87451 Subseq Hosp Care Lvl 1 Diagnoses Acute exacerbation of CHF (congestive heart failure) I50.9 Heart failure type: unspecified CKD (chronic kidney disease) stage 4, GFR 15-29 ml/min N18.4 T2DM (type 2 diabetes mellitus) E11.9 Hypertension I10 Hypertension type: essential hypertension Atrial fibrillation I48.91 Atrial fibrillation type: unspecified Venous stasis ulcer of left lower extremity I83.029; L97.929 Hypothyroidism E03.9 Hypothyroidism type: acquired Anemia D64.9 (1) Acute exacerbation of CHF (congestive heart failure) Heart failure type: unspecified Qualified Code(s): I50.9 - Heart failure, unspecified (2) Atrial fibrillation Atrial fibrillation type: unspecified Qualified Code(s): I48.91 - Unspecified atrial fibrillation (3) Hypothyroidism Hypothyroidism type: acquired Qualified Code(s): E03.9 - Hypothyroidism, unspecified (4) Hypertension Hypertension type: essential hypertension Qualified Code(s): I10 - Essential (primary) hypertension
[2021-10-24] MEDS: LIDOCAINE 5% 1 PATCH TD SCH (12:12)
--- NOTE | 2021-10-24 12:22 | Pharmacy Report ---
Pharmacy Glycemic Short Note 2 - Date of Service October 24, 2021 - Glycemic Short BSG Results (Last 24 hours): 10/23/21 10/23/21 10/23/21 14:49 17:31 20:30 POC Glucose 74 184 H 239 H 10/24/21 10/24/21 08:05 12:04 POC Glucose 160 H 166 H OUTPATIENT ANTIDIABETIC REGIMEN: * Novolog mix 70/30 100 units SQ qam, 90 units SQ qpm * HbA1c: 6.4% (10/04/21) * However, this result is likely somewhat unreliable in ESRD patients d/t interactions between the A1c analyzing technique and high levels of urea in ESRD, reduced RBC life span, iron deficiency anemia, and EPO administration. HbA1c > 7.5% in ESRD patient may overestimate the extent of hyperglycemia in ESRD patients. ASSESSMENT: 10/24/21 * Patient ready for discharge, just awaiting dialysis bed at [facility], no bed available today * No HD Today, blood sugars adequately controlled for this patient, no changes in insulin at this time 10/20/21 * Patient's BSGs yesterday were 255-694-42-115 mg/dL. Patient received 78 units of insulin (40 units of NPH plus 38 units of Novolog). * Fasting today was 93 mg/dL. * Decrease NPH by 25% since fasting trending down * Continue Novolog. 10/19/21 * Patient's BSGs yesterday were 677-358-35-131 mg/dL. Patient received 69 units of insulin (40 units of NPH plus 29 units of Novolog). * Fasting today was 129 mg/dL. * Continue regimen NPH. * Loosen CF as patient almost overcorrected yesterday. 10/18/21: * BSGs remain reasonably controlled * Receiving ~50/50 basal/bolus split (40 units of NPH and 44 units of Novolog yesterday) * Hemodialysis scheduled for today * Lunch BSG elevated at 204 mg/dL - will tighten AM Novolog correction factor for tomorrow morning 10/16/21: * Patient received 66 units of insulin yesterday (40 units NPH + 26 units novolog) * Fasting BSG is at goal. Lunchtime BSG continues to be the highest BSG of the day. * Despite tightening carb coverage with breakfast, the trend continues today. Will tighten CR further. 10/15/21 * Stressors stable * Post-prandial BSG's at dinner and HS yesterday and at lunch today were elevated. Will continue with uneven distribution of CHO ratio, but will tighten at breakfast, dinner, and HS. Will leave lunch 2nd hx of reduced BSG's at dinner when lunch CHO ratio was tighter. * AM fasting BSG in goal range - no change to NPH 10/14/21: * 3rd HD session planned for today (3 hr). Patients often require a sharp decrease in insulin at initiation of HD, although this does not seem to be the case for Mr. Warren based on the trends from the initial two HD sessions * Will keep regimen the same for now, but may need to loosen/decrease insulin if BSG's decrease PLAN FOR INPATIENT GLYCEMIC CONTROL: * Basal insulin * NPH 15 units SQ AM, 20 units SQ HS * Bolus insulin - * NovoLog per scale ACHS or Q6hrs while NPO * Goal Range: Low 110 mg/dL - High 140 mg/dL * Correction Factor: 20 mg/dL/unit with breakfast, 25mg/dL/unit with lunch, dinner, bedtime * Carb ratio: 3 g CHO/unit with breakfast, 9 g CHO/unit lunch, dinner, bedtime PLAN FOR DISCHARGE: * A1c is unreliable secondary to CKD and altered RBC turnover rate. If patient is experiencing hypoglycemia as an outpatient recommend decreasing outpatient insulin doses as outpatient doses are significantly higher than inpatient dosing. * Patient may require further adjustment based on how significantly initiation of HD affects insulin sensitivity (dose adjustments down are sometimes required due to increased insulin sensitivity). Currently only receiving about 70 units/day.
[2021-10-24] MEDS: INSULIN ASPART 100 UNITS/ML 3 ML PEN SC SCH ×3 (12:55→20:58)
[2021-10-24] MEDS: WARFARIN SOD 5 MG TAB PO SCH (16:04)
[2021-10-25] MEDS: ISOSORBIDE DINITRATE 20 MG TAB PO SCH ×3 (05:58→17:48)
[2021-10-25] MEDS: LEVOTHYROXINE SODIUM 112 MCG TABLET PO SCH (05:58)
[2021-10-25] MEDS ORDERED: SODIUM CHLORIDE 0.9% 1000ML 1,000 ML IV PRN (07:00)
[2021-10-25] MEDS ORDERED: EPOETIN ALFA 10,000 UNITS/ML VIAL IV ONE (07:00)
[2021-10-25] MEDS ORDERED: HEPARIN SOD (PORCINE) 1000 UNIT/ML IV ONE (07:00)
[2021-10-25] MEDS: INSULIN ASPART 100 UNITS/ML 3 ML PEN SC SCH ×4 (08:44→21:19)
--- NOTE | 2021-10-25 08:45 | Hospitalist Progress Note ---
Date of Service October 25, 2021 Assessment & Plan (1) Acute exacerbation of CHF (congestive heart failure): Plan: 75yo Male PMH CHF, DM2, CKD IV, afib on warfarin, CAD, HTN, HLD, ICD placement, chronic venous stasis here for SOB. - Appears this is likely an acute decompensation in the setting of worsening renal function - Remains on supplemental O2 and will wean as tolerated - feels SOB is only present with exertion (family also states he doesn't move much so suspect some may be deconditioning) - Recommend saturations of 90 or better; given body habitus suspect hypoventilation syndrome and possibly PINKY. May benefit from outpatient testing as he does desaturate when sleeping - Will need cardiology follow up as outpatient - Has completed HD x 3 initial sessions and tolerating subsequent treatments - plan for MWF sessions - down approx 25+ lbs since admission - Cardiology followed/sign off - no change in recommendation - following diuretics as guided by nephrology (2) CKD (chronic kidney disease) stage 4, GFR 15-29 ml/min: Plan: Acute Kidney Injury/Suspect ATN Superimposed on CKD IV - Now End Stage with HD Initiated - Ultimately agreed to HD and currently tolerating; S/P perm cath insertion on 10/11 - Continue Torsemide 100 mg daily and Metolazone 5 mg daily - Nephrology continues to support use of diuretics (3) T2DM (type 2 diabetes mellitus): Plan: DM2 - glycemic consult placed - alcoholic counselor consulted - 07/2021 A1c 9.3 - sugars ranging 120-190s (4) Hypertension: Plan: - Stable with good control - continue hydralazine 25 mg BID (reduced) - continue metoprolol tartrate 50mg BID - isosorbide also helps (5) Atrial fibrillation: Plan: Atrial Fibrillation on Warfarin with Supratherapeutic INR on presentation - Has ICD/Pacer; H/O Ventricular Fibrillation - Coumadin resumed and INR therapeutic at 2.0 - Continue Amiodarone 200 mg BID; Metoprolol Tartrate 50 mg BID (6) Venous stasis ulcer of left lower extremity: Plan: - Elevated - Now with self removal of 4th toenail - leather belt loop cutter following, recommending double thick Xeroform and secure w/ bandaid daily (7) Hypothyroidism: Plan: - clinically stable - continue levothyroxine 112 mcg - 12/2020 TSH 3.51 (8) Anemia: Plan: anemia of chronic disease - Hgb at 8-9 and relatively stable - Vitals are stable - no indication for transfusion at this time; receiving Venofer with HD with Nephrology oversight Plan: Continue HD on MWF Supplement potassium for K+ of 3.4 w/ 40 meq POx1 Awaiting dialysis bed at [facility] - medically stable for d/c when bed available Case management following - awaiting insurance auth for outpatient dialysis Admission and Anticipated Discharge Date Admission Date: October 03, 2021 Subjective Mr. Warren was seen on rounds this morning. Remains hospitalized for acute decompensated CHF due to worsening renal failure. He has been started on HD (MWF) and is tolerating treatments. He is currently awaiting a dialysis bed at [facility]. He denies dyspnea at present, denies chest pain, n/v/d, f/c, headache, or gu symptoms. He no longer requiring supplemental O2. Review of Systems Review of Systems: CONSTITUTIONAL: Denies weight loss/gain, fever and chills, fatigue, malaise, generalized weakness. HEENT: Denies changes in vision and hearing. RESPIRATORY: Denies SOB, cough, wheezing. CV: Denies palpitations, CP, lower extremity edema, orthopnea, PND. GI: Denies abdominal pain, nausea, vomiting and diarrhea. : Decreased urine output. Denies dysuria and urinary frequency, urgency, hesitancy. MUSCULOSKELETAL: Denies myalgia and joint pain. SKIN: Denies rash and pruritus. NEUROLOGICAL: Denies headache, syncope, focal weakness, numbness, tingling. PSYCHIATRIC: Denies recent changes in mood. Denies anxiety and depression. Physical Exam Physical Exam: GENERAL: 75 yo Well-developed, well-nourished, pleasant WM. NAD. LUNGS: Clear to auscultation bilaterally. No accessory muscle use. No W/R/R. CARDIOVASCULAR: Regular rate and rhythm. 3/6 blowing systolic murmur. No G/R. ABDOMEN: Soft, NT/ND. No palpable masses. Bowel sounds normoactive x 4 quad. EXTREMITIES: No edema. Non-tender. S/P R BKA. PSYCHIATRIC: Cooperative. Appropriate mood and affect. SKIN: Warm, dry, intact. No rashes or lesions. Permcath site looks clean/dry, no erythema. Results & Data Results & Data ([facility]) Vital Signs (Past 12 Hours) Vital Signs Temp Pulse Resp BP Pulse Ox 10/25/21 07:36 36.8 C 64 16 121/63 96 10/24/21 22:28 36.9 C 62 18 124/64 96 Laboratory Results 10/25/21 14:05 10/25/21 14:05 PG Care Time/CCT Total # of Minutes Spent Total Time Spent with Patient: Total time spent is greater than 50% in coordination of care (as documented) at patient's floor/unit and/or counseling patient: Coding Level of Care Code 23329 Subseq Hosp Care Lvl 1 Diagnoses Acute exacerbation of CHF (congestive heart failure) I50.9 Heart failure type: unspecified CKD (chronic kidney disease) stage 4, GFR 15-29 ml/min N18.4 T2DM (type 2 diabetes mellitus) E11.9 Hypertension I10 Hypertension type: essential hypertension Atrial fibrillation I48.91 Atrial fibrillation type: unspecified Venous stasis ulcer of left lower extremity I83.029; L97.929 Hypothyroidism E03.9 Hypothyroidism type: acquired Anemia D64.9 (1) Acute exacerbation of CHF (congestive heart failure) Heart failure type: unspecified Qualified Code(s): I50.9 - Heart failure, unspecified (2) Atrial fibrillation Atrial fibrillation type: unspecified Qualified Code(s): I48.91 - Unspecified atrial fibrillation (3) Hypothyroidism Hypothyroidism type: acquired Qualified Code(s): E03.9 - Hypothyroidism, unspecified (4) Hypertension Hypertension type: essential hypertension Qualified Code(s): I10 - Essential (primary) hypertension
[2021-10-25] MEDS: INSULIN HUMAN NPH SC SCH ×2 (08:46→21:20)
--- NOTE | 2021-10-25 10:16 | Dialysis Progress Note ---
Date of Service October 25, 2021 Assessment & Plan Admission and Anticipated Discharge Date Admission Date: October 03, 2021 Subjective Assessment & Plan (1) Acute kidney injury: Plan: CKD 4 and now ESRD, with new start to dialysis Conintue HD--3.5hrs and take 2.5 off on 2 K bath. On Procrit and heparin. previously w/ CKD stage 4/5, with his serum creatinine in early to mid fours, and has been resistant to the idea of dialysis in the past but changed his mind and started here. now on chronic HD chemistries ok -daily bmp, hgb -continue torsemide 100, metolazone 5 daily -awaiting bed at [facility] -cont low sodium diet, 1.5L FR has not had any labs so will do tomorrow Subjective Seen during Dialysis. Feels much better breathing. hardly any edema now. CVC fine. BP is ok so far. Review of Systems Review of Systems: All systems reviewed & are unremarkable except as noted in Subjective Physical Exam Constitutional: well developed and well nourished on 02nc; NAD Eyes: EOM intact bilaterally ENMT: Ears: no external ear abnormality Nose: no external nose abnormality Mouth: + dry oral mucous membranes Neck: no nuchal rigidity Respiratory: normal respiratory effort Auscultation: + diminished lung sounds and + crackles (bibasilar) Cardiovascular: Rate/Rhythm: regular rate and regular rhythm Heart Sounds: + murmur Extremities: no edema Gastrointestinal (Abdomen): Inspection/Auscultation: normal bowel sounds Percussion/Palpation: abdomen soft; abdomen nontender Musculoskeletal: Extremities: strength 5/5 throughout and + leg length discrepancy (R AKA) Skin: no rashes, warm and dry Psychiatric: Orientation: alert and oriented x 3 Results & Data ([facility]) Vital Signs (Past 12 Hours) Vital Signs Temp Pulse Pulse Pulse Resp BP BP 10/25/21 09:40 73 134/65 10/25/21 09:20 68 118/59 L 10/25/21 09:05 36.8 C 67 10/25/21 07:36 36.8 C 64 16 121/63 10/24/21 22:28 36.9 C 62 18 124/64 Pulse Ox 10/25/21 09:40 10/25/21 09:20 10/25/21 09:05 10/25/21 07:36 96 10/24/21 22:28 96
--- NOTE | 2021-10-25 11:43 | Pharmacy Report ---
Pharmacy Glycemic Short Note 2 - Date of Service October 25, 2021 - Glycemic Short BSG Results (Last 24 hours): 10/24/21 10/24/21 10/24/21 12:04 17:14 20:52 POC Glucose 166 H 133 H 158 H 10/25/21 08:18 POC Glucose 147 H OUTPATIENT ANTIDIABETIC REGIMEN: * Novolog mix 70/30 100 units SQ qam, 90 units SQ qpm * HbA1c: 6.4% (10/04/21) * However, this result is likely somewhat unreliable in ESRD patients d/t interactions between the A1c analyzing technique and high levels of urea in ESRD, reduced RBC life span, iron deficiency anemia, and EPO administration. HbA1c > 7.5% in ESRD patient may overestimate the extent of hyperglycemia in ESRD patients. ASSESSMENT: 10/25/21 * Patient received total of 66 units of insulin yesterday, of which 35 units were basal * BSGs well controlled over last 24 hrs, no change 10/24/21 * Patient ready for discharge, just awaiting dialysis bed at [facility], no bed available today * No HD Today, blood sugars adequately controlled for this patient, no changes in insulin at this time 10/20/21 * Patient's BSGs yesterday were [phone] mg/dL. Patient received 78 units of insulin (40 units of NPH plus 38 units of Novolog). * Fasting today was 93 mg/dL. * Decrease NPH by 25% since fasting trending down * Continue Novolog. 10/19/21 * Patient's BSGs yesterday were [phone] mg/dL. Patient received 69 units of insulin (40 units of NPH plus 29 units of Novolog). * Fasting today was 129 mg/dL. * Continue regimen NPH. * Loosen CF as patient almost overcorrected yesterday. 10/18/21: * BSGs remain reasonably controlled * Receiving ~50/50 basal/bolus split (40 units of NPH and 44 units of Novolog yesterday) * Hemodialysis scheduled for today * Lunch BSG elevated at 204 mg/dL - will tighten AM Novolog correction factor for tomorrow morning 10/16/21: * Patient received 66 units of insulin yesterday (40 units NPH + 26 units novolog) * Fasting BSG is at goal. Lunchtime BSG continues to be the highest BSG of the day. * Despite tightening carb coverage with breakfast, the trend continues today. Will tighten CR further. 10/15/21 * Stressors stable * Post-prandial BSG's at dinner and HS yesterday and at lunch today were elevated. Will continue with uneven distribution of CHO ratio, but will tighten at breakfast, dinner, and HS. Will leave lunch 2nd hx of reduced BSG's at dinner when lunch CHO ratio was tighter. * AM fasting BSG in goal range - no change to NPH 10/14/21: * 3rd HD session planned for today (3 hr). Patients often require a sharp decrease in insulin at initiation of HD, although this does not seem to be the case for Mr. Warren based on the trends from the initial two HD sessions * Will keep regimen the same for now, but may need to loosen/decrease insulin if BSG's decrease PLAN FOR INPATIENT GLYCEMIC CONTROL: * Basal insulin * NPH 15 units SQ AM, 20 units SQ HS * Bolus insulin - * NovoLog per scale ACHS or Q6hrs while NPO * Goal Range: Low 110 mg/dL - High 140 mg/dL * Correction Factor: 20 mg/dL/unit with breakfast, 25mg/dL/unit with lunch, dinner, bedtime * Carb ratio: 3 g CHO/unit with breakfast, 9 g CHO/unit lunch, dinner, bedtime PLAN FOR DISCHARGE: * A1c is unreliable secondary to CKD and altered RBC turnover rate. Insulin needs currently are much less then home regimen. This may be due to starting HD. Unclear if PO intake much higher outpatient. * Currently only receiving about 65-70 units total of insulin/day. - Could consider a dose reduction to Novolog 70/30 mix to target ~70 units/day. Typically for this insulin its recommended 2/3 of dose be given with breakfast and 1/3 with dinner (Could do 45 units with breakfast and 25 units with dinner) * Ultimately patient would need to make sure he is checking BSGs at least 2x- 3x/day and may need followup outpatient to titrate up dosing if needed.
[2021-10-25] MEDS: HEPARIN SOD (PORCINE) 1000 UNIT/ML IV SCH (11:45)
[2021-10-25] MEDS: METOPROLOL TARTRATE 50 MG TAB PO SCH ×2 (13:26→20:20)
[2021-10-25] MEDS: DOCUSATE SODIUM/SENNA 50/8.6MG TAB PO SCH (13:26)
[2021-10-25] MEDS: CHOLECALCIFEROL 1,000 UNITS 25 MCG TAB PO SCH (13:27)
[2021-10-25] MEDS: POLYETHYLENE (MIRALAX) 17 GM PACK PO SCH ×2 (13:27→20:21)
[2021-10-25] MEDS: AMIODARONE 200 MG TAB PO SCH ×2 (13:27→20:16)
[2021-10-25] MEDS: TORSEMIDE 100 MG TAB PO SCH (13:27)
[2021-10-25] MEDS: ASCORBIC ACID 500 MG TAB PO SCH (13:28)
[2021-10-25] MEDS: OMEGA-3 (PURIFIED FISH OIL) 1 GM CAP PO SCH (13:28)
[2021-10-25] MEDS: ATORVASTATIN 10 MG TAB PO SCH (13:28)
[2021-10-25] MEDS: hydrALAZINE HCL 25 MG TAB PO SCH ×2 (13:28→20:16)
[2021-10-25] MEDS: allopurinoL 300 MG TAB PO SCH (13:28)
[2021-10-25] MEDS: FENOFIBRATE NANOCRYSTALLIZED 48 MG TABLET PO SCH (13:28)
[2021-10-25] MEDS: metOLazone 5 MG TABLET PO SCH (13:29)
[2021-10-25] MEDS: LIDOCAINE 5% 1 PATCH TD SCH (13:29)
[2021-10-25 14:40] LABS: Basophils # (auto) 0.03 K/uL (0-0.2); Basophils % (auto) 0.4 %; Eosinophils # (auto) 0.25 K/uL (0-0.5); Hematocrit (blood only) 32.2 % (42-52); Hemoglobin 9.9 g/dL (14.0-18.0); Immature Granulocytes # (auto) 0.01 K/uL (0.00-0.02); Immature Granulocytes % (auto) 0.1 %; Lymphocytes # (auto) 1.26 K/uL (1.2-3.4); Lymphocytes % (auto) 15.2 %; Mean Corpuscular Hemoglobin 27.6 pg (25-34); Mean Corpuscular Hgb Conc 30.7 g/dL (32-36); Mean Corpuscular Volume 89.7 fL (80-100); Mean Platelet Volume 9.8 fL (7.4-10.4); Monocytes % (auto) 13.3 %; Neutrophils # (auto) 5.65 K/uL (1.4-6.5); Platelet Count 406 K/uL (130-400); RDW Coefficient of Variation 17.1 % (11.5-14.5); RDW Standard Deviation 56.4 fL (36.4-46.3); Red Blood Count 3.59 M/uL (4.7-6.1)
[2021-10-25 14:50] LABS: INR 2.2 (0.9-1.1); Prothrombin Time 20.7 Seconds (9.0-12.0)
[2021-10-25 15:07] LABS: BUN Creatinine Ratio 7.9 (10-20); Est GFR (African American) 16.2 ml/min; Magnesium 2.3 mg/dl (1.8-2.4); Phosphorus 3.2 mg/dl (2.5-4.9); Potassium 3.4 mmol/L (3.5-5.1)
[2021-10-25] MEDS: WARFARIN SOD 5 MG TAB PO SCH (17:48)
[2021-10-25] MEDS ORDERED: POTASSIUM CHLORIDE CRTAB 20 MEQ TABCR PO STA (18:01)
[2021-10-26] MEDS: ISOSORBIDE DINITRATE 20 MG TAB PO SCH ×3 (06:17→16:50)
[2021-10-26] MEDS: LEVOTHYROXINE SODIUM 112 MCG TABLET PO SCH (06:17)
[2021-10-26 06:35] LABS: Basophils # (auto) 0.03 K/uL (0-0.2); Basophils % (auto) 0.3 %; Hematocrit (blood only) 32.2 % (42-52); Hemoglobin 9.7 g/dL (14.0-18.0); Immature Granulocytes # (auto) 0.02 K/uL (0.00-0.02); Immature Granulocytes % (auto) 0.2 %; Lymphocytes # (auto) 1.56 K/uL (1.2-3.4); Lymphocytes % (auto) 15.7 %; Mean Corpuscular Hemoglobin 27.3 pg (25-34); Mean Corpuscular Hgb Conc 30.1 g/dL (32-36); Mean Corpuscular Volume 90.7 fL (80-100); Mean Platelet Volume 10.2 fL (7.4-10.4); Monocytes # (auto) 1.59 K/uL (0.11-0.59); Neutrophils # (auto) 6.43 K/uL (1.4-6.5); Neutrophils % (auto) 64.8 %; Platelet Count 404 K/uL (130-400); RDW Coefficient of Variation 17.2 % (11.5-14.5); RDW Standard Deviation 56.8 fL (36.4-46.3); Red Blood Count 3.55 M/uL (4.7-6.1); White Blood Count 9.93 K/uL (4.8-10.8)
[2021-10-26 06:45] LABS: INR 2.3 (0.9-1.1); Prothrombin Time 22.2 Seconds (9.0-12.0)
[2021-10-26 07:23] LABS: Calcium 9.4 mg/dl (8.5-10.1); Creatinine Clr Calc Pharmacy 13.9 ml/min; Est GFR (African American) 9.8 ml/min; Est GFR (Non-African American) 8.5 ml/min; Potassium 4.2 mmol/L (3.5-5.1)
[2021-10-26] MEDS: AMIODARONE 200 MG TAB PO SCH ×2 (07:38→21:48)
[2021-10-26] MEDS: ATORVASTATIN 10 MG TAB PO SCH (07:39)
[2021-10-26] MEDS: ASCORBIC ACID 500 MG TAB PO SCH (07:39)
[2021-10-26] MEDS: allopurinoL 300 MG TAB PO SCH (07:39)
[2021-10-26] MEDS: CHOLECALCIFEROL 1,000 UNITS 25 MCG TAB PO SCH (07:39)
[2021-10-26] MEDS: OMEGA-3 (PURIFIED FISH OIL) 1 GM CAP PO SCH (07:40)
[2021-10-26] MEDS: metOLazone 5 MG TABLET PO SCH (07:40)
[2021-10-26] MEDS: METOPROLOL TARTRATE 50 MG TAB PO SCH ×2 (07:40→21:48)
[2021-10-26] MEDS: FENOFIBRATE NANOCRYSTALLIZED 48 MG TABLET PO SCH (07:40)
[2021-10-26] MEDS: TORSEMIDE 100 MG TAB PO SCH (07:41)
[2021-10-26] MEDS: hydrALAZINE HCL 25 MG TAB PO SCH ×2 (07:41→21:48)
[2021-10-26] MEDS: POLYETHYLENE (MIRALAX) 17 GM PACK PO SCH ×2 (07:41→21:59)
[2021-10-26] MEDS: LIDOCAINE 5% 1 PATCH TD SCH (07:41)
[2021-10-26] MEDS: DOCUSATE SODIUM/SENNA 50/8.6MG TAB PO SCH (07:42)
--- NOTE | 2021-10-26 08:26 | Hospitalist Progress Note ---
Date of Service October 26, 2021 Assessment & Plan (1) Acute exacerbation of CHF (congestive heart failure): Plan: 75yo Male PMH CHF, DM2, CKD IV, afib on warfarin, CAD, HTN, HLD, ICD placement, chronic venous stasis here for SOB. - Appears this is likely an acute decompensation in the setting of worsening renal function - Remains on supplemental O2 and will wean as tolerated - feels SOB is only present with exertion (family also states he doesn't move much so suspect some may be deconditioning) - Recommend saturations of 90 or better; given body habitus suspect hypoventilation syndrome and possibly PINKY. May benefit from outpatient testing as he does desaturate when sleeping - Will need cardiology follow up as outpatient - Has completed HD x 3 initial sessions and tolerating subsequent treatments - plan for MWF sessions - down approx 25+ lbs since admission - Cardiology followed/sign off - no change in recommendation - following diuretics as guided by nephrology (2) CKD (chronic kidney disease) stage 4, GFR 15-29 ml/min: Plan: Acute Kidney Injury/Suspect ATN Superimposed on CKD IV - Now End Stage with HD Initiated - Ultimately agreed to HD and currently tolerating; S/P perm cath insertion on 10/11 - Continue Torsemide 100 mg daily and Metolazone 5 mg daily - Nephrology continues to support use of diuretics (3) T2DM (type 2 diabetes mellitus): Plan: DM2 - glycemic consult placed - registered nurse renal consulted - 07/2021 A1c 9.3 - sugars ranging 120-190s (4) Hypertension: Plan: - Stable with good control - continue hydralazine 25 mg BID (reduced) - continue metoprolol tartrate 50mg BID - isosorbide also helps (5) Atrial fibrillation: Plan: Atrial Fibrillation on Warfarin with Supratherapeutic INR on presentation - Has ICD/Pacer; H/O Ventricular Fibrillation - Coumadin resumed and INR therapeutic at 2.0 - Continue Amiodarone 200 mg BID; Metoprolol Tartrate 50 mg BID (6) Venous stasis ulcer of left lower extremity: Plan: - Elevated - Now with self removal of 4th toenail - radio division captain following, recommending double thick Xeroform and secure w/ bandaid daily (7) Hypothyroidism: Plan: - clinically stable - continue levothyroxine 112 mcg - 12/2020 TSH 3.51 (8) Anemia: Plan: anemia of chronic disease - Hgb at 8-9 and relatively stable - Vitals are stable - no indication for transfusion at this time; receiving Venofer with HD with Nephrology oversight Plan: Continue HD on MWF Awaiting dialysis bed at [facility] - medically stable for d/c when bed available Case management following - as of 10/25, insurance authorized outpatient dialysis. [facility] should have a bed on Thursday or Thursday. is going to transport. Admission and Anticipated Discharge Date Admission Date: October 03, 2021 Subjective Mr. Warren was seen on rounds this morning. Remains hospitalized for acute decompensated CHF due to worsening renal failure. He has been started on HD (MWF) and is tolerating treatments. He is currently awaiting a dialysis bed at [facility]. He denies dyspnea at present, denies chest pain, n/v/d, f/c, headache, or gu symptoms. Review of Systems Review of Systems: CONSTITUTIONAL: Denies weight loss/gain, fever and chills, fatigue, malaise, generalized weakness. HEENT: Denies changes in vision and hearing. RESPIRATORY: Denies SOB, cough, wheezing. CV: Denies palpitations, CP, lower extremity edema, orthopnea, PND. GI: Denies abdominal pain, nausea, vomiting and diarrhea. : Decreased urine output. Denies dysuria and urinary frequency, urgency, hesitancy. MUSCULOSKELETAL: Denies myalgia and joint pain. SKIN: Denies rash and pruritus. NEUROLOGICAL: Denies headache, syncope, focal weakness, numbness, tingling. PSYCHIATRIC: Denies recent changes in mood. Denies anxiety and depression. Physical Exam Physical Exam: GENERAL: 75 yo Well-developed, well-nourished, pleasant WM. NAD. LUNGS: Clear to auscultation bilaterally. No accessory muscle use. No W/R/R. CARDIOVASCULAR: Regular rate and rhythm. 3/6 blowing systolic murmur. No G/R. ABDOMEN: Soft, NT/ND. No palpable masses. Bowel sounds normoactive x 4 quad. EXTREMITIES: No edema. Non-tender. S/P R BKA. PSYCHIATRIC: Cooperative. Appropriate mood and affect. SKIN: Warm, dry, intact. No rashes or lesions. Permcath site looks clean/dry, no erythema. Results & Data Results & Data ([facility]) Vital Signs (Past 12 Hours) Vital Signs Temp Pulse Resp BP Pulse Ox 10/25/21 22:58 36.8 C 61 17 130/66 93 PG Care Time/CCT Total # of Minutes Spent Total Time Spent with Patient: Total time spent is greater than 50% in coordination of care (as documented) at patient's floor/unit and/or counseling patient: Coding Level of Care Code 87915 Subseq Hosp Care Lvl 1 Diagnoses Acute exacerbation of CHF (congestive heart failure) I50.9 Heart failure type: unspecified CKD (chronic kidney disease) stage 4, GFR 15-29 ml/min N18.4 T2DM (type 2 diabetes mellitus) E11.9 Hypertension I10 Hypertension type: essential hypertension Atrial fibrillation I48.91 Atrial fibrillation type: unspecified Venous stasis ulcer of left lower extremity I83.029; L97.929 Hypothyroidism E03.9 Hypothyroidism type: acquired Anemia D64.9 (1) Acute exacerbation of CHF (congestive heart failure) Heart failure type: unspecified Qualified Code(s): I50.9 - Heart failure, unspecified (2) Atrial fibrillation Atrial fibrillation type: unspecified Qualified Code(s): I48.91 - Unspecified atrial fibrillation (3) Hypothyroidism Hypothyroidism type: acquired Qualified Code(s): E03.9 - Hypothyroidism, unspecified (4) Hypertension Hypertension type: essential hypertension Qualified Code(s): I10 - Essential (primary) hypertension
[2021-10-26] MEDS: INSULIN ASPART 100 UNITS/ML 3 ML PEN SC SCH ×4 (09:06→21:48)
[2021-10-26] MEDS: INSULIN HUMAN NPH SC SCH ×2 (09:06→21:49)
--- NOTE | 2021-10-26 11:57 | Nephrology Progress Note ---
Date of Service October 26, 2021 Assessment & Plan (1) Acute kidney injury: Plan: -Secondary to fluid overload >> now ESRD, with new start to dialysis previously w/ CKD stage 4/5, with his serum creatinine in early to mid fours, and has been resistant to the idea of dialysis in the past but changed his mind and started here. now on chronic HD. Patient tolerated dialysis well yesterday. chemistries ok -Next dialysis will be on Thursday hopefully at rehab -cont low sodium diet, 1.5L FR Admission and Anticipated Discharge Date Admission Date: October 03, 2021 Subjective Seen for ESRD. He feels well denies any shortness of breath or leg swelling. Review of Systems Review of Systems: All other systems were reviewed and negative except as noted in HPI Physical Exam Physical Exam: General exam: Appears comfortable, no acute distress HEENT: Pupils are equal and reactive to light Neck: No JVD, neck is supple trachea is midline Respiratory system: Clear breath sounds bilaterally. Gastrointestinal: Abdomen is soft, non distended, non tender, bowel sounds are present CVS: Regular rate and rhythm. No murmurs, rubs or gallops Musculoskeletal: No joint or muscle tenderness Extremities: Non tender, no edema, peripheral pulses are present Neuro: Oriented, no tremors, no focal neurological deficits Skin: No rashes Results & Data ([facility]) Vital Signs (Past 12 Hours) Vital Signs Temp Pulse Resp BP Pulse Ox 10/26/21 08:26 36.8 C 60 16 132/64 94 Laboratory Results 10/26/21 06:06 10/25/21 10/25/21 10/26/21 14:05 14:05 06:06 WBC 8.30 9.93 RBC 3.59 L 3.55 L MCV 89.7 90.7 MCH 27.6 27.3 MCHC 30.7 L 30.1 L RDW Std Deviation 56.4 H 56.8 H RDW Coeff of Nicolasa 17.1 H 17.2 H Plt Count 406 H 404 H MPV 9.8 10.2 Phosphorus 3.2
[2021-10-26] MEDS: WARFARIN SOD 5 MG TAB PO SCH (16:49)
[2021-10-27] MEDS: ISOSORBIDE DINITRATE 20 MG TAB PO SCH ×3 (05:49→16:05)
[2021-10-27] MEDS: LEVOTHYROXINE SODIUM 112 MCG TABLET PO SCH (05:49)
[2021-10-27] MEDS: ASCORBIC ACID 500 MG TAB PO SCH (07:31)
[2021-10-27] MEDS: CHOLECALCIFEROL 1,000 UNITS 25 MCG TAB PO SCH (07:31)
[2021-10-27] MEDS: TORSEMIDE 100 MG TAB PO SCH (07:32)
[2021-10-27] MEDS: hydrALAZINE HCL 25 MG TAB PO SCH ×2 (07:32→20:59)
[2021-10-27] MEDS: allopurinoL 300 MG TAB PO SCH (07:32)
[2021-10-27] MEDS: AMIODARONE 200 MG TAB PO SCH ×2 (07:32→20:59)
[2021-10-27] MEDS: METOPROLOL TARTRATE 50 MG TAB PO SCH ×2 (07:32→20:59)
[2021-10-27] MEDS: DOCUSATE SODIUM/SENNA 50/8.6MG TAB PO SCH (07:33)
[2021-10-27] MEDS: metOLazone 5 MG TABLET PO SCH (07:33)
[2021-10-27] MEDS: OMEGA-3 (PURIFIED FISH OIL) 1 GM CAP PO SCH (07:33)
[2021-10-27] MEDS: ATORVASTATIN 10 MG TAB PO SCH (07:33)
[2021-10-27] MEDS: FENOFIBRATE NANOCRYSTALLIZED 48 MG TABLET PO SCH (07:33)
[2021-10-27] MEDS: POLYETHYLENE (MIRALAX) 17 GM PACK PO SCH ×2 (07:34→20:59)
[2021-10-27] MEDS: LIDOCAINE 5% 1 PATCH TD SCH (07:34)
[2021-10-27 08:09] LABS: INR 2.2 (0.9-1.1); Prothrombin Time 20.7 Seconds (9.0-12.0)
[2021-10-27] MEDS: INSULIN HUMAN NPH SC SCH ×2 (09:19→21:00)
[2021-10-27] MEDS: INSULIN ASPART 100 UNITS/ML 3 ML PEN SC SCH ×3 (09:20→18:01)
[2021-10-27] MEDS ORDERED: BENZOCAINE 20% (ORAJEL) 11.9 GM TUBE MT PRN (10:44)
--- NOTE | 2021-10-27 10:54 | Hospitalist Progress Note ---
Date of Service October 27, 2021 Assessment & Plan (1) Acute exacerbation of CHF (congestive heart failure): Plan: 75yo Male PMH CHF, DM2, CKD IV, afib on warfarin, CAD, HTN, HLD, ICD placement, chronic venous stasis here for SOB. - Appears this is likely an acute decompensation in the setting of worsening renal function - Remains on supplemental O2 and will wean as tolerated - feels SOB is only present with exertion (family also states he doesn't move much so suspect some may be deconditioning) - Recommend saturations of 90 or better; given body habitus suspect hypoventilation syndrome and possibly PINKY. May benefit from outpatient testing as he does desaturate when sleeping - Will need cardiology follow up as outpatient - Has completed HD x 3 initial sessions and tolerating subsequent treatments - plan for MWF sessions - down approx 25+ lbs since admission - Cardiology followed/sign off - no change in recommendation - following diuretics as guided by nephrology (2) CKD (chronic kidney disease) stage 4, GFR 15-29 ml/min: Plan: Acute Kidney Injury/Suspect ATN Superimposed on CKD IV - Now End Stage with HD Initiated - Ultimately agreed to HD and currently tolerating; S/P perm cath insertion on 10/11 - Continue Torsemide 100 mg daily and Metolazone 5 mg daily - Nephrology continues to support use of diuretics (3) T2DM (type 2 diabetes mellitus): Plan: DM2 - glycemic consult placed - rubber thread spooler consulted - 07/2021 A1c 9.3 - sugars ranging 120-190s (4) Hypertension: Plan: - Stable with good control - continue hydralazine 25 mg BID (reduced) - continue metoprolol tartrate 50mg BID - isosorbide also helps (5) Atrial fibrillation: Plan: Atrial Fibrillation on Warfarin with Supratherapeutic INR on presentation - Has ICD/Pacer; H/O Ventricular Fibrillation - Coumadin resumed and INR therapeutic at 2.0 - Continue Amiodarone 200 mg BID; Metoprolol Tartrate 50 mg BID (6) Venous stasis ulcer of left lower extremity: Plan: - Elevated - Now with self removal of 4th toenail - customer care representative following, recommending double thick Xeroform and secure w/ bandaid daily (7) Hypothyroidism: Plan: - clinically stable - continue levothyroxine 112 mcg - 12/2020 TSH 3.51 (8) Anemia: Plan: anemia of chronic disease - Hgb at 8-9 and relatively stable - Vitals are stable - no indication for transfusion at this time; receiving Venofer with HD with Nephrology oversight Plan: Continue HD on MWF. Will order Benzocaine to apply topically for the ulcer as needed. Awaiting dialysis bed at [facility] - medically stable for d/c when bed available Case management following - as of 10/25, insurance authorized outpatient dialysis. [facility] should have a bed on Thursday or Thursday. is going to transport. Admission and Anticipated Discharge Date Admission Date: October 03, 2021 Subjective Mr. Warren was seen on rounds this morning. Remains hospitalized for acute decompensated CHF due to worsening renal failure. He has been started on HD (MWF) and is tolerating treatments. He is currently awaiting a dialysis bed at [facility]. He denies dyspnea at present, denies chest pain, n/v/d, f/c, headache, or gu symptoms. His only complaint is an ulcer on the inside of his bottom lip. He has since removed his bottom dentures but is asking for something to relieve the discomfort. Review of Systems Review of Systems: CONSTITUTIONAL: Denies weight loss/gain, fever and chills, fatigue, malaise, generalized weakness. HEENT: Denies changes in vision and hearing. RESPIRATORY: Denies SOB, cough, wheezing. CV: Denies palpitations, CP, lower extremity edema, orthopnea, PND. GI: Denies abdominal pain, nausea, vomiting and diarrhea. : Decreased urine output. Denies dysuria and urinary frequency, urgency, hesitancy. MUSCULOSKELETAL: Denies myalgia and joint pain. SKIN: Denies rash and pruritus. NEUROLOGICAL: Denies headache, syncope, focal weakness, numbness, tingling. PSYCHIATRIC: Denies recent changes in mood. Denies anxiety and depression. Physical Exam Physical Exam: GENERAL: 75 yo Well-developed, well-nourished, pleasant WM. NAD. MOUTH: aphthous ulcer inside bottom lip abutting the gum LUNGS: Clear to auscultation bilaterally. No accessory muscle use. No W/R/R. CARDIOVASCULAR: Regular rate and rhythm. 3/6 blowing systolic murmur. No G/R. ABDOMEN: Soft, NT/ND. No palpable masses. Bowel sounds normoactive x 4 quad. EXTREMITIES: No edema. Non-tender. S/P R BKA. PSYCHIATRIC: Cooperative. Appropriate mood and affect. SKIN: Warm, dry, intact. No rashes or lesions. Permcath site looks clean/dry, no erythema. Results & Data Results & Data ([facility]) Vital Signs (Past 12 Hours) Vital Signs Temp Pulse Resp BP Pulse Ox 10/27/21 07:24 36.9 C 61 18 117/63 92 10/26/21 22:57 36.6 C 18 PG Care Time/CCT Total # of Minutes Spent Total Time Spent with Patient: Total time spent is greater than 50% in coordination of care (as documented) at patient's floor/unit and/or counseling patient: Coding Level of Care Code 19148 Subseq Hosp Care Lvl 1 Diagnoses Acute exacerbation of CHF (congestive heart failure) I50.9 Heart failure type: unspecified CKD (chronic kidney disease) stage 4, GFR 15-29 ml/min N18.4 T2DM (type 2 diabetes mellitus) E11.9 Hypertension I10 Hypertension type: essential hypertension Atrial fibrillation I48.91 Atrial fibrillation type: unspecified Venous stasis ulcer of left lower extremity I83.029; L97.929 Hypothyroidism E03.9 Hypothyroidism type: acquired Anemia D64.9 (1) Acute exacerbation of CHF (congestive heart failure) Heart failure type: unspecified Qualified Code(s): I50.9 - Heart failure, unspecified (2) Hypertension Hypertension type: essential hypertension Qualified Code(s): I10 - Essential (primary) hypertension (3) Atrial fibrillation Atrial fibrillation type: unspecified Qualified Code(s): I48.91 - Unspecified atrial fibrillation (4) Hypothyroidism Hypothyroidism type: acquired Qualified Code(s): E03.9 - Hypothyroidism, unspecified
--- NOTE | 2021-10-27 11:37 | Nephrology Progress Note ---
Date of Service October 27, 2021 Assessment & Plan (1) Acute kidney injury: Plan: -Secondary to fluid overload >> now ESRD, with new start to dialysis previously w/ CKD stage 4/5, with his serum creatinine in early to mid fours, and has been resistant to the idea of dialysis in the past but changed his mind and started here. now on chronic HD. Patient tolerated dialysis well on Thursday chemistries ok -Next dialysis will be on Thursday for 4 hours and target UF 2 L -cont low sodium diet, 1.5L FR Admission and Anticipated Discharge Date Admission Date: October 03, 2021 Subjective Seen in follow-up for ESRD. No shortness of breath. No leg swelling. Review of Systems Review of Systems: All other systems were reviewed and negative except as noted in HPI Physical Exam Physical Exam: General exam: Appears comfortable, no acute distress HEENT: Pupils are equal and reactive to light Neck: No JVD, neck is supple trachea is midline Respiratory system: Clear breath sounds bilaterally. Gastrointestinal: Abdomen is soft, non distended, non tender, bowel sounds are present CVS: Regular rate and rhythm. No murmurs, rubs or gallops Musculoskeletal: No joint or muscle tenderness Extremities: Non tender, no edema, peripheral pulses are present Neuro: Oriented, no tremors, no focal neurological deficits Skin: No rashes Results & Data ([facility]) Vital Signs (Past 12 Hours) Vital Signs Temp Pulse Resp BP Pulse Ox 10/27/21 07:24 36.9 C 61 18 117/63 92 Laboratory Results 10/26/21 06:06
[2021-10-27] MEDS: WARFARIN SOD 5 MG TAB PO SCH (16:05)
[2021-10-27] MEDS: INSULIN ASPART 100 UNITS/ML VIAL SC SCH (21:00)
[2021-10-28] MEDS: ISOSORBIDE DINITRATE 20 MG TAB PO SCH ×3 (05:53→18:17)
[2021-10-28] MEDS: LEVOTHYROXINE SODIUM 112 MCG TABLET PO SCH (05:53)
[2021-10-28] MEDS ORDERED: IRON SUCROSE 100 MG in SYRINGE 0 ML IV SCH (07:00)
[2021-10-28] MEDS ORDERED: SODIUM CHLORIDE 0.9% 1000ML 1,000 ML IV PRN (07:00)
[2021-10-28] MEDS ORDERED: EPOETIN ALFA 10,000 UNITS/ML VIAL IV ONE (07:00)
[2021-10-28] MEDS ORDERED: HEPARIN SOD (PORCINE) 1000 UNIT/ML IV ONE (07:00)
[2021-10-28] MEDS: INSULIN ASPART 100 UNITS/ML VIAL SC SCH ×5 (07:34→20:55)
--- NOTE | 2021-10-28 09:36 | Dialysis Progress Note ---
Date of Service October 28, 2021 Assessment & Plan (1) ESRD (end stage renal disease) on dialysis: Plan: -Secondary to fluid overload >> now ESRD, with new start to dialysis previously w/ CKD stage 4/5, with his serum creatinine in early to mid fours, and has been resistant to the idea of dialysis in the past but changed his mind and started here. now on chronic HD. Patient tolerated dialysis well on Thursday chemistries ok -Next dialysis will be on thursday for 4 hours and target UF 2 L -cont low sodium diet, 1.5L FR -for 10K NYDIA w/ tx >> t stn was 10% mid September; will recheck in am -ordered CXR for AM since he is still on Admission and Anticipated Discharge Date Admission Date: October 03, 2021 Subjective no interval events. feels breathing at baseline > on 02nc w/ tx Review of Systems Review of Systems: All systems reviewed & are unremarkable except as noted in Subjective Physical Exam Constitutional: well developed and well nourished Eyes: EOM intact bilaterally ENMT: Ears: no external ear abnormality Nose: no external nose abnormality Mouth: + dry oral mucous membranes Neck: no nuchal rigidity Respiratory: normal respiratory effort Auscultation: + diminished lung sounds Cardiovascular: Rate/Rhythm: regular rate and regular rhythm Heart Sounds: + murmur Extremities: no edema Gastrointestinal (Abdomen): Inspection/Auscultation: normal bowel sounds Percussion/Palpation: abdomen soft; abdomen nontender Musculoskeletal: Extremities: strength 5/5 throughout and + leg length discrepancy (R AKA) Skin: no rashes, warm and dry Psychiatric: Orientation: alert and oriented x 3 Results & Data ([facility]) Vital Signs (Past 12 Hours) Vital Signs Temp Pulse Pulse Resp BP Pulse Ox 10/28/21 07:12 36.7 C 60 16 103/59 L 92 10/27/21 23:19 36.4 C L 63 18 120/68 94 Laboratory Results 10/26/21 06:06 10/26/21 06:06
[2021-10-28] MEDS: HEPARIN SOD (PORCINE) 1000 UNIT/ML IV SCH ×2 (09:52→12:34)
--- NOTE | 2021-10-28 11:44 | Pharmacy Report ---
Pharmacy Glycemic Short Note 2 - Date of Service October 28, 2021 - Glycemic Short BSG Results (Last 24 hours): 10/27/21 10/27/21 10/27/21 12:23 17:24 20:36 POC Glucose 161 H 93 143 H OUTPATIENT ANTIDIABETIC REGIMEN: * Novolog mix 70/30 100 units SQ qam, 90 units SQ qpm * HbA1c: 6.4% (10/04/21) * However, this result is likely somewhat unreliable in ESRD patients d/t interactions between the A1c analyzing technique and high levels of urea in ESRD, reduced RBC life span, iron deficiency anemia, and EPO administration. HbA1c > 7.5% in ESRD patient may overestimate the extent of hyperglycemia in ESRD patients. ASSESSMENT: 10/28/21 * BSGs yesterday were [phone] mg/dL. Fasting today 143 mg/dL. * Patient received 64 units of insulin (35 units of basal and 29 units of bolus) yesterday. * Patient went early to dialysis today so only carbohydrate coverage given. Morning NPH after dialysis. * Expect patient's BSGs to be higher today due to late NPH given. 10/25/21 * Patient received total of 66 units of insulin yesterday, of which 35 units were basal * BSGs well controlled over last 24 hrs, no change 10/24/21 * Patient ready for discharge, just awaiting dialysis bed at [facility], no bed available today * No HD Today, blood sugars adequately controlled for this patient, no changes in insulin at this time 10/20/21 * Patient's BSGs yesterday were 133-972-00-115 mg/dL. Patient received 78 units of insulin (40 units of NPH plus 38 units of Novolog). * Fasting today was 93 mg/dL. * Decrease NPH by 25% since fasting trending down * Continue Novolog. 10/19/21 * Patient's BSGs yesterday were [phone] mg/dL. Patient received 69 units of insulin (40 units of NPH plus 29 units of Novolog). * Fasting today was 129 mg/dL. * Continue regimen NPH. * Loosen CF as patient almost overcorrected yesterday. 10/18/21: * BSGs remain reasonably controlled * Receiving ~50/50 basal/bolus split (40 units of NPH and 44 units of Novolog yesterday) * Hemodialysis scheduled for today * Lunch BSG elevated at 204 mg/dL - will tighten AM Novolog correction factor for tomorrow morning 10/16/21: * Patient received 66 units of insulin yesterday (40 units NPH + 26 units novolog) * Fasting BSG is at goal. Lunchtime BSG continues to be the highest BSG of the day. * Despite tightening carb coverage with breakfast, the trend continues today. Will tighten CR further. 10/15/21 * Stressors stable * Post-prandial BSG's at dinner and HS yesterday and at lunch today were elevated. Will continue with uneven distribution of CHO ratio, but will tighten at breakfast, dinner, and HS. Will leave lunch 2nd hx of reduced BSG's at dinner when lunch CHO ratio was tighter. * AM fasting BSG in goal range - no change to NPH 10/14/21: * 3rd HD session planned for today (3 hr). Patients often require a sharp decrease in insulin at initiation of HD, although this does not seem to be the case for Mr. Warren based on the trends from the initial two HD sessions * Will keep regimen the same for now, but may need to loosen/decrease insulin if BSG's decrease PLAN FOR INPATIENT GLYCEMIC CONTROL: * Basal insulin * NPH 15 units SQ AM, 20 units SQ HS * Bolus insulin - * NovoLog per scale ACHS or Q6hrs while NPO * Goal Range: Low 110 mg/dL - High 140 mg/dL * Correction Factor: 20 mg/dL/unit with breakfast, 30mg/dL/unit with lunch, dinner, bedtime * Carb ratio: 3 g CHO/unit with breakfast, 8 g CHO/unit lunch, dinner, bedtime PLAN FOR DISCHARGE: * A1c is unreliable secondary to CKD and altered RBC turnover rate. Insulin needs currently are much less then home regimen. This may be due to starting HD. Unclear if PO intake much higher outpatient. * Currently only receiving about 65-70 units total of insulin/day. - Could consider a dose reduction to Novolog 70/30 mix to target ~70 units/day. Typically for this insulin its recommended 2/3 of dose be given with breakfast and 1/3 with dinner (Could do 45 units with breakfast and 25 units with dinner) * Ultimately patient would need to make sure he is checking BSGs at least 2x- 3x/day and may need followup outpatient to titrate up dosing if needed.
[2021-10-28] MEDS: hydrALAZINE HCL 25 MG TAB PO SCH ×2 (12:32→20:52)
[2021-10-28] MEDS: TORSEMIDE 100 MG TAB PO SCH (12:32)
[2021-10-28] MEDS: allopurinoL 300 MG TAB PO SCH (12:32)
[2021-10-28] MEDS: ASCORBIC ACID 500 MG TAB PO SCH (12:32)
[2021-10-28] MEDS: FENOFIBRATE NANOCRYSTALLIZED 48 MG TABLET PO SCH (12:33)
[2021-10-28] MEDS: metOLazone 5 MG TABLET PO SCH (12:33)
[2021-10-28] MEDS: CHOLECALCIFEROL 1,000 UNITS 25 MCG TAB PO SCH (12:33)
[2021-10-28] MEDS: OMEGA-3 (PURIFIED FISH OIL) 1 GM CAP PO SCH (12:33)
[2021-10-28] MEDS: METOPROLOL TARTRATE 50 MG TAB PO SCH ×2 (12:33→20:53)
[2021-10-28] MEDS: ATORVASTATIN 10 MG TAB PO SCH (12:33)
[2021-10-28] MEDS: AMIODARONE 200 MG TAB PO SCH ×2 (12:33→20:52)
[2021-10-28] MEDS: LIDOCAINE 5% 1 PATCH TD SCH (12:34)
[2021-10-28] MEDS: POLYETHYLENE (MIRALAX) 17 GM PACK PO SCH ×2 (12:35→20:53)
[2021-10-28] MEDS: INSULIN HUMAN NPH SC SCH ×2 (12:36→21:37)
[2021-10-28] MEDS: DOCUSATE SODIUM/SENNA 50/8.6MG TAB PO SCH (12:38)
--- NOTE | 2021-10-28 14:20 | XRay Report ---
XR chest 1V portable CLINICAL HISTORY: assess interstitial edema TECHNIQUE: Single frontal radiograph of the chest was obtained. Comparison: Comparison is made to chest one view 10/15/2021 FINDINGS: Lines and tubes are stable. Cardiomegaly is noted. Lungs are underinflated. There is mild cephalizati on of vasculature. No evidence of pleural effusion or pneumothorax. IMPRESSION: Mild pulmonary edema without evidence of interstitial edema. ACT 112: Negative or not required by law. Electronically signed by: Edin Marvin M.D. 10/28/2021 2:19 PM
--- NOTE | 2021-10-28 15:51 | Hospitalist Progress Note ---
Date of Service October 28, 2021 Assessment & Plan (1) Acute exacerbation of CHF (congestive heart failure): Plan: 75yo Male PMH CHF, DM2, CKD IV, afib on warfarin, CAD, HTN, HLD, ICD placement, chronic venous stasis here for SOB. - Appears this is likely an acute decompensation in the setting of worsening renal function - Remains on supplemental O2 and will wean as tolerated - feels SOB is only present with exertion (family also states he doesn't move much so suspect some may be deconditioning) - Recommend saturations of 90 or better; given body habitus suspect hypoventilation syndrome and possibly PINKY. May benefit from outpatient testing as he does desaturate when sleeping -- CXR with mild pulmonary edema - no signs suggestive of pneumonitis from amiodarone on imaging - Will need cardiology follow up as outpatient - Has completed HD x 3 initial sessions and tolerating subsequent treatments - plan for MWF sessions - down approx 25+ lbs since admission; remains at a negative fluid balance - Cardiology followed/sign off - no change in recommendation - following diuretics as guided by nephrology (2) CKD (chronic kidney disease) stage 4, GFR 15-29 ml/min: Plan: Acute Kidney Injury/Suspect ATN Superimposed on CKD IV - Now End Stage with HD Initiated - Ultimately agreed to HD and currently tolerating; S/P perm cath insertion on 10/11 - Continue Torsemide 100 mg daily and Metolazone 5 mg daily - Nephrology continues to support use of diuretics (3) T2DM (type 2 diabetes mellitus): Plan: DM2 - glycemic consult placed - crusher consulted - 07/2021 A1c 9.3 - sugars ranging 120-190s (4) Hypertension: Plan: - Stable with good control - continue hydralazine 25 mg BID (reduced) - continue metoprolol tartrate 50mg BID - isosorbide also helps (5) Atrial fibrillation: Plan: Atrial Fibrillation on Warfarin with Supratherapeutic INR on presentation - Has ICD/Pacer; H/O Ventricular Fibrillation - Coumadin resumed and INR therapeutic at 2.2 - Continue Amiodarone 200 mg BID; Metoprolol Tartrate 50 mg BID (6) Venous stasis ulcer of left lower extremity: Plan: - Elevated - Now with self removal of 4th toenail - baffle mounter following, recommending double thick Xeroform and secure w/ bandaid daily (7) Hypothyroidism: Plan: - clinically stable - continue levothyroxine 112 mcg - 12/2020 TSH 3.51 (8) Anemia: Plan: anemia of chronic disease - Hgb at 8-9 and relatively stable - Vitals are stable - no indication for transfusion at this time; receiving Venofer with HD with Nephrology oversight Plan: Continue HD on MWF. Will order Benzocaine to apply topically for the ulcer as needed. Awaiting dialysis bed at [facility] - medically stable for d/c when bed available Case management following - as of 10/25, insurance authorized outpatient dialysis. [facility] should have a bed this week. is going to transport. Admission and Anticipated Discharge Date Admission Date: October 03, 2021 Subjective Pt seen after dialysis. Reports tolerating well. Reports mouth ulcer is improving and not too bothersome today. He continues to diurese for a negative fluid balance. Awaiting bed at [facility]. Verbalizes no complaints. Review of Systems Review of Systems: All systems reviewed & are unremarkable except as noted in Subjective Physical Exam Physical Exam: PHYSICAL EXAM General Appearance: 75 y/o male in NAD who is A&O x 3 HEENT: Head is normocephalic/atraumatic; Hearing grossly intact; Mucous membranes moist Neck: Supple; Trachea midline; Neg JVD Heart: RRR with murmur Lungs: CTA in all lung olivera bilaterally but diminished at bases; Respirations unlabored; Neg accessory muscle use Abdomen: Soft, non-tender, non-distended; Positive BS x 4 quadrants Extremities: Neg cyanosis; R BKA; Neg edema Neurological: Speech clear Psychiatric: Appropriate mood/affect Skin: Normal Color; Warm/Dry Results & Data Results & Data ([facility]) Vital Signs (Past 12 Hours) Vital Signs Temp Pulse Pulse Pulse Resp BP BP 10/28/21 12:29 36.8 C 68 16 150/76 H 10/28/21 12:15 36.6 C 64 114/66 10/28/21 12:03 64 120/66 10/28/21 11:40 65 116/67 10/28/21 11:20 65 127/66 10/28/21 11:00 64 123/68 10/28/21 10:40 64 122/63 10/28/21 10:20 63 119/59 L 10/28/21 10:00 64 117/64 10/28/21 09:40 67 120/61 10/28/21 09:20 65 122/63 10/28/21 09:00 66 123/58 L 10/28/21 08:40 64 122/62 10/28/21 08:33 64 129/65 10/28/21 08:30 36.7 C 66 10/28/21 07:12 36.7 C 60 16 103/59 L Pulse Ox 10/28/21 12:29 94 10/28/21 12:15 10/28/21 12:03 10/28/21 11:40 10/28/21 11:20 10/28/21 11:00 10/28/21 10:40 10/28/21 10:20 10/28/21 10:00 10/28/21 09:40 10/28/21 09:20 10/28/21 09:00 10/28/21 08:40 10/28/21 08:33 10/28/21 08:30 10/28/21 07:12 92 PG Care Time/CCT Total # of Minutes Spent Total Time Spent with Patient: Total time spent is greater than 50% in coordination of care (as documented) at patient's floor/unit and/or counseling patient: Coding Level of Care Code 84484 Subseq Obs Care Lvl 2 Diagnoses Acute exacerbation of CHF (congestive heart failure) I50.9 Heart failure type: unspecified CKD (chronic kidney disease) stage 4, GFR 15-29 ml/min N18.4 T2DM (type 2 diabetes mellitus) E11.9 Hypertension I10 Hypertension type: essential hypertension Atrial fibrillation I48.91 Atrial fibrillation type: unspecified Venous stasis ulcer of left lower extremity I83.029; L97.929 Hypothyroidism E03.9 Hypothyroidism type: acquired Anemia D64.9 (1) Acute exacerbation of CHF (congestive heart failure) Heart failure type: unspecified Qualified Code(s): I50.9 - Heart failure, unspecified (2) Hypertension Hypertension type: essential hypertension Qualified Code(s): I10 - Essential (primary) hypertension (3) Atrial fibrillation Atrial fibrillation type: unspecified Qualified Code(s): I48.91 - Unspecified atrial fibrillation (4) Hypothyroidism Hypothyroidism type: acquired Qualified Code(s): E03.9 - Hypothyroidism, unspecified
[2021-10-28] MEDS: WARFARIN SOD 5 MG TAB PO SCH (18:17)
[2021-10-29] MEDS: LEVOTHYROXINE SODIUM 112 MCG TABLET PO SCH (05:45)
[2021-10-29] MEDS: ISOSORBIDE DINITRATE 20 MG TAB PO SCH ×2 (05:45→13:14)
[2021-10-29 08:34] LABS: INR 2.2 (0.9-1.1); Prothrombin Time 20.7 Seconds (9.0-12.0)
[2021-10-29 08:50] LABS: Iron 38 mcg/dl (35-175); Transferrin 271 mg/dl (200-360); Transferrin (FE) Percent Satur 10 % (20-50)
[2021-10-29] MEDS: metOLazone 5 MG TABLET PO SCH (09:21)
[2021-10-29] MEDS: METOPROLOL TARTRATE 50 MG TAB PO SCH (09:21)
[2021-10-29] MEDS: ASCORBIC ACID 500 MG TAB PO SCH (09:21)
[2021-10-29] MEDS: DOCUSATE SODIUM/SENNA 50/8.6MG TAB PO SCH (09:21)
[2021-10-29] MEDS: CHOLECALCIFEROL 1,000 UNITS 25 MCG TAB PO SCH (09:21)
[2021-10-29] MEDS: AMIODARONE 200 MG TAB PO SCH (09:21)
[2021-10-29] MEDS: FENOFIBRATE NANOCRYSTALLIZED 48 MG TABLET PO SCH (09:21)
[2021-10-29] MEDS: allopurinoL 300 MG TAB PO SCH (09:21)
[2021-10-29] MEDS: OMEGA-3 (PURIFIED FISH OIL) 1 GM CAP PO SCH (09:21)
[2021-10-29] MEDS: TORSEMIDE 100 MG TAB PO SCH (09:21)
[2021-10-29] MEDS: hydrALAZINE HCL 25 MG TAB PO SCH (09:21)
[2021-10-29] MEDS: ATORVASTATIN 10 MG TAB PO SCH (09:21)
[2021-10-29] MEDS: LIDOCAINE 5% 1 PATCH TD SCH (09:22)
[2021-10-29] MEDS: POLYETHYLENE (MIRALAX) 17 GM PACK PO SCH (09:22)
[2021-10-29] MEDS: INSULIN ASPART 100 UNITS/ML VIAL SC SCH ×2 (09:29→13:16)
[2021-10-29] MEDS: INSULIN HUMAN NPH SC SCH (09:29)
--- NOTE | 2021-10-29 13:28 | Nephrology Progress Note ---
Date of Service October 29, 2021 Assessment & Plan (1) ESRD (end stage renal disease) on dialysis: Plan: -Secondary to fluid overload >> now ESRD, with new start to dialysis previously w/ CKD stage 4/5, with his serum creatinine in early to mid fours, and has been resistant to the idea of dialysis in the past but changed his mind and started here. now on chronic HD. Patient tolerated dialysis well on Thursday chemistries ok -Next dialysis will be on thursday > now at [facility] for 4 hours and target UF 2 L -cont low sodium diet, 1.5L FR -for 10K NYDIA w/ tx >> t stn was 10% mid September; will recheck in am > still 10% -cxr yesterday still w/ plm edema, so will continue diuretics and aggressive UF Admission and Anticipated Discharge Date Admission Date: October 03, 2021 Subjective for possibel d/c today to [facility]; no c/o; did ADLs w/o 02 this am and sats ok so far Review of Systems Review of Systems: All systems reviewed & are unremarkable except as noted in Subjective Physical Exam Constitutional: well developed and well nourished Eyes: EOM intact bilaterally ENMT: Ears: no external ear abnormality Nose: no external nose abnormality Mouth: + dry oral mucous membranes Neck: no nuchal rigidity Respiratory: normal respiratory effort Auscultation: + diminished lung sounds Cardiovascular: Rate/Rhythm: regular rate and regular rhythm Heart Sounds: + murmur Extremities: no edema Gastrointestinal (Abdomen): Inspection/Auscultation: normal bowel sounds Percussion/Palpation: abdomen soft; abdomen nontender Musculoskeletal: Extremities: strength 5/5 throughout and + leg length discrepancy (R AKA) Skin: no rashes, warm and dry Psychiatric: Orientation: alert and oriented x 3 Results & Data ([facility]) Vital Signs (Past 12 Hours) Vital Signs Temp Pulse Pulse Pulse Resp BP BP 10/29/21 13:09 36.6 C 70 64 59 L 18 120/65 125/49 L 10/29/21 12:27 18 10/29/21 09:20 70 10/29/21 07:47 36.6 C 59 L 16 120/65 Pulse Ox 10/29/21 13:09 96 10/29/21 12:27 96 10/29/21 09:20 10/29/21 07:47 99 Laboratory Results 10/26/21 06:06 10/26/21 06:06
[2021-10-29] MEDS: WARFARIN SOD 5 MG TAB PO SCH (15:18)
--- NOTE | 2021-10-29 19:43 | Discharge Summary ---
Date of Service October 29, 2021 Principal Diagnosis Acute Combined Congestive Heart Failure; Acute on Chronic Kidney Failure now ESRD on Dialysis Discharge Exam PHYSICAL EXAM General Appearance: 75 y/o male in NAD who is A&O x 3 HEENT: Head is normocephalic/atraumatic; Hearing grossly intact; Mucous membranes moist Neck: Supple; Trachea midline; Neg JVD Heart: RRR with murmur Lungs: CTA in all lung olivera bilaterally but diminished at bases; Respirations unlabored; Neg accessory muscle use Abdomen: Soft, non-tender, non-distended; Positive BS x 4 quadrants Extremities: Neg cyanosis; R BKA; Neg edema Neurological: Speech clear Psychiatric: Appropriate mood/affect Skin: Normal Color; Warm/Dry Discharge Data Allergies Allergy/AdvReac Type Severity Reaction Status Date / Time No Known Allergies Allergy Verified 08/01/21 06:39 Consultations 10/03/21 18:05 ED Decision to Admit Stat 10/03/21 21:21 Consult Cardiology Routine Consult Nephrology Routine 10/06/21 14:17 Consult Palliative Care Routine 10/10/21 10:18 Consult Vascular Surgery Routine Procedures Performed Operation Date: 10/11/21 09:20 Actual Procedures p insertion of perm catheter, right internal jugular approach, ultrasound localization of right internal jugular vein, fluroscopy for positioning, moderate sedation [id number](Right) - Rashad Pace MD Ordered Studies Chest X-Ray 10/03/21 16:41 XR chest 1V portable CLINICAL HISTORY: Chest Pain. COMPARISON STUDY: 08/08/2021 TECHNIQUE: 1 view of the chest FINDINGS: Single frontal view of the chest demonstrates the heart to be enlarged with dual lead ICD pacer in place. Compared to previous examination, there is increased prominence of the interstitial markings most characteristic of mild interstitial edema rather than interstitial fibrosis. There is central vascular congestion as well. There is no evidence for pleural effusion. There are no confluent alveolar opacities. There is no acute osseous pathology. IMPRESSION: Increased prominence of the interstitial markings which are indistinct with the findings most characteristic of mild interstitial edema rather than interstitial fibrosis. There is also central vascular congestion. ACT 112: Negative or not required by law. Electronically signed by: Edmond Morales M.D. 10/03/2021 5:14 PM KUB X-Ray 10/07/21 15:29 XR KUB/Abdomen 1 view CLINICAL HISTORY: constipation TECHNIQUE: 1 view of the abdomen was obtained. Comparison: None available at the time of this dictation. FINDINGS: Lung bases are unremarkable. The osseous structures are grossly unremarkable. The bowel gas pattern is nonobstructive. A moderate amount of stool is noted within the large bowel. IMPRESSION: Nonobstructive bowel gas pattern. ACT 112: Negative or not required by law. Electronically signed by: Edin Marvin M.D. 10/07/2021 4:26 PM Chest X-Ray 10/15/21 10:44 XR chest 1V portable CLINICAL HISTORY: SOB; CHF COMPARISON STUDY: Chest radiograph October 03, 2021. FINDINGS: Left subclavian pacer/AICD is in place. A dual lumen right internal jugular catheter has been placed in the interim. There is no pneumothorax or pleural effusion. Cardiomegaly is unchanged. Interstitial thickening has improved. IMPRESSION: Mild interstitial pulmonary edema, improved since prior exam. ACT 112: Negative or not required by law. Electronically signed by: Nimesh Freire M.D. 10/15/2021 12:43 PM Chest X-Ray 10/28/21 13:00 XR chest 1V portable CLINICAL HISTORY: assess interstitial edema TECHNIQUE: Single frontal radiograph of the chest was obtained. Comparison: Comparison is made to chest one view 10/15/2021 FINDINGS: Lines and tubes are stable. Cardiomegaly is noted. Lungs are underinflated. There is mild cephalization of vasculature. No evidence of pleural effusion or pneumothorax. IMPRESSION: Mild pulmonary edema without evidence of interstitial edema. ACT 112: Negative or not required by law. Electronically signed by: Edin Marvin M.D. 10/28/2021 2:19 PM Hospital Course (1) Acute exacerbation of CHF (congestive heart failure): 75yo Male PMH CHF, DM2, CKD IV, afib on warfarin, CAD, HTN, HLD, ICD placement, chronic venous stasis here for SOB. - Appears this is likely an acute decompensation in the setting of worsening renal function - Weaned off supplemental O2 - Recommend saturations of 90 or better; given body habitus suspect hypoventilation syndrome and possibly PINKY. May benefit from outpatient testing as he does desaturate when sleeping -- CXR with mild pulmonary edema - no signs suggestive of pneumonitis from amiodarone on imaging -- Significant snorer so suspect could desaturate at night - Will need cardiology follow up as outpatient - Has completed HD x 3 initial sessions and tolerating subsequent treatments - plan for MWF sessions as outpatient but TThS while at [facility]- down approx 25+ lbs since admission; remains at a negative fluid balance - Cardiology followed/sign off - no change in recommendation - following diuretics as guided by nephrology (2) CKD (chronic kidney disease) stage 4, GFR 15-29 ml/min: Acute Kidney Injury/Suspect ATN Superimposed on CKD IV - Now End Stage with HD Initiated - Ultimately agreed to HD and currently tolerating; S/P perm cath insertion on 10/11 - Continue Torsemide 100 mg daily and Metolazone 5 mg daily - Nephrology continues to support use of diuretics (3) T2DM (type 2 diabetes mellitus): DM2 - Adjusted home regimen especially while inpatient and A1c drastically improved to 6.4 (4) Hypertension: - Stable with good control - continue hydralazine 25 mg BID (reduced) - continue metoprolol tartrate 50mg BID - isosorbide (5) Atrial fibrillation: Atrial Fibrillation on Warfarin with Supratherapeutic INR on presentation - Has ICD/Pacer; H/O Ventricular Fibrillation - Coumadin resumed and INR therapeutic at 2.2 - Continue Amiodarone 200 mg BID; Metoprolol Tartrate 50 mg BID (6) Venous stasis ulcer of left lower extremity: - Elevate - Now with self removal of 4th toenail - nephrology nurse following, recommending double thick Xeroform and secure w/ bandaid daily (7) Hypothyroidism: - clinically stable - continue levothyroxine 112 mcg - 12/2020 TSH 3.51 (8) Anemia: anemia of chronic disease - Hgb at 9-10 and relatively stable -Receiving Venofer with HD with Nephrology oversight [facility] for rehab Total Time Total Time Spent Total Time Spent (In Minutes): Spent greater than 30 minutes preparing patient for discharge. This includes discussion with patient/family, assessment, intervention, medication reconciliation, and coordination of care. Discharge Plan Discharge Items Patient Disposition: Transfer Inpatient Rehab Fac Reason For Visit: CHF, [place] Discharge Diagnosis: Congestive Heart Failure; End Stage Renal Disease on Dialysis Activity: Resume your previous activity Non-emergency contact: Primary Care Provider Call non-emergency contact if: you have any medication questions, your symptoms worsen and you have a fever Follow-up/Referrals: Aaron Keller MD [Primary Care Provider] - Diet: Carb Consistent or DM2 and Low Sodium (2gm) Addtl Attending Provider Instructions: 75yo Male PMH CHF, DM2, CKD IV, afib on warfarin, CAD, HTN, HLD, ICD placement, chronic venous stasis here for SOB. Acute exacerbation of CHF (congestive heart failure): STABLE - Appears this is likely an acute decompensation in the setting of worsening renal function - Has weaned down to room air mostly 94-96% at rest. With walking to the bath room and in the room he did drop to 91% but reported no shortness of breath -- Recommend to monitor with vitals to see if needed in the future - suspect with good diuresis and maintenance of weights could avoid oxygen. -- Recommend saturations of 90 or better; given body habitus suspect hypoventilation syndrome and possibly PINKY. May benefit from outpatient testing as suspect he does desaturate when sleeping (is a pretty significant snorer as well) -- CXR with mild pulmonary edema - no signs suggestive of pneumonitis from amiodarone on imaging -Will need cardiology follow up as outpatient - Has completed HD x 3 initial sessions and tolerating subsequent treatments - plan for MWF sessions as outpatient. Did speak with Rn Telephonic that he can convert to a T, Th, Sat schedule while at [facility] - down approx 25+ lbs since admission; remains at a negative fluid balance (-15.6 L) CKD (chronic kidney disease) stage 4, GFR 15-29 ml/min: Acute Kidney Injury/Suspect ATN Superimposed on CKD IV - Now End Stage with HD Initiated - Ultimately agreed to HD and currently tolerating; S/P perm cath insertion on 10/11 - Continue Torsemide 100 mg daily and Metolazone 5 mg daily - Nephrology continues to support use of diuretics T2DM (type 2 diabetes mellitus): - Recommendations given to reduce home dosing to 45 units of Novolog 70/30 in AM and 25 units Novolog 70/30 in evening -- Could implement in-house sliding scale if preferable - A1c is improved from 9.3 to now currently at 6.4 Hypertension: - Stable with good control - continue hydralazine 25 mg BID (reduced from home dosing) - continue metoprolol tartrate 50mg BID - isosorbide Atrial fibrillation: Atrial Fibrillation on Warfarin with Supratherapeutic INR on presentation but now normalized - Has ICD/Pacer; H/O Ventricular Fibrillation - Coumadin resumed and INR therapeutic at 2.2 and has stayed relatively stable at this point on 5 mg daily. Recommend recheck in 2-3 days - Continue Amiodarone 200 mg BID; Metoprolol Tartrate 50 mg BID Venous stasis ulcer of left lower extremity: - Elevated - Now with self removal of 4th toenail - nephrology nurse following, recommending double thick Xeroform and secure w/ bandaid daily Hypothyroidism: - clinically stable - continue levothyroxine 112 mcg - 12/2020 TSH 3.51 Anemia: anemia of chronic disease - Hgb at 8-9 and stable - has been trending more into high 9s - Vitals are stable - no indication for transfusion at this time; receiving Venofer with HD with Nephrology oversight Pending Studies at Discharge: No Stand-Alone Forms: My [facility] Skilled Items Patient informed of condition?: Yes DNR: Yes Discharge Level of Care: Acute rehab Communicable Disease: No Discharge Prognosis: Stable Lines: None Urinary Catheter: No Medications and DC Order Prescriptions: New metolazone 5 mg Tablet 5 mg PO QAM Qty: 0 RF: 0 torsemide 100 mg Tablet 100 mg PO QAM Qty: 0 RF: 0 Continued metoprolol tartrate 50 mg tablet 50 mg PO BID RF: 0 allopurinol 300 mg tablet 300 mg PO QAM RF: 0 levothyroxine 112 mcg tablet 112 mcg PO QAM RF: 0 fenofibrate nanocrystallized 48 mg tablet 48 mg PO QAM RF: 0 cholecalciferol (vitamin D3) [Vitamin D3] 1,000 unit Capsule 1,000 unit PO QAM RF: 0 Fish Oil 360 mg-144 mg- 216 mg-1,200 mg Capsule,Delayed Release(Dr/Ec) 1 cap PO QAM RF: 0 warfarin 5 mg tablet 5 mg PO DAILY RF: 0 ascorbic acid (vitamin C) [Vitamin C] 500 mg Tablet 500 mg PO DAILY RF: 0 isosorbide dinitrate 20 mg Tablet 20 mg PO 0700,1200,1700 Qty: 90 RF: 0 amiodarone 200 mg Tablet 200 mg PO BID Qty: 60 RF: 0 atorvastatin 10 mg Tablet 10 mg PO QAM Qty: 30 RF: 0 Changed hydralazine 50 mg tablet 25 mg PO BID Qty: 0 RF: 0 insulin asp prt-insulin aspart [Novolog Mix 70-30 U-100 Insuln] 100 unit/mL (70-30) solution 45 unit subcut QAM Qty: 0 RF: 0 insulin asp prt-insulin aspart [Novolog Mix 70-30 U-100 Insuln] 100 unit/mL (70-30) solution 25 unit subcut QPM Qty: 0 RF: 0 Discontinued warfarin 1 mg tablet 2 mg PO DAILY RF: 0 torsemide 10 mg Tablet 40 mg PO DAILY Qty: 30 RF: 0 Discharge Orders: Discharge Order (Routine); Ordered 10/29/21 Ordered By: Nancie Cantu/Other Patient Handouts: A1C, High Blood Sugar (Hyperglycemia), Managing Type 2 Diabetes Admission Data Admit Date/Time: 10/03/21 19:12 Attending Provider: Edin Mora Admit Provider: Mau [place] Primary Care Provider: Aaron Keller Other Providers: [facility] ; [facility] ; [facility] ; Mau [place] ; Morgan Mcdowell ; Iris Rosas ; Augustine Reina ; Angela Valencia ; Starr Mata ; Lalita Goodwin ; Jordy Michaud ; Kell Diaz ; Rashad Pace Supervising Physician Co-Signing Physician Notes Attending note: patient seen and examined with Nancie Strickland PA-C. I agree with her discharge summary. I personally reviewed the labs and imaging findings. patient tolerating HD, had it yesterday eating and drinking well, breathing comfortably - ESRD, now on HD: tolerating HD, will continue at [facility] - Acute on chronic heart failure, volume overload with ESRD: now well compensated with regular fluid removal with HD, continue three days a week Coding Level of Care Code D/C DAY MANAGEMENT >30 MINS Diagnoses Acute exacerbation of CHF (congestive heart failure) I50.9 Heart failure type: unspecified CKD (chronic kidney disease) stage 4, GFR 15-29 ml/min N18.4 T2DM (type 2 diabetes mellitus) E11.9 Hypertension I10 Hypertension type: essential hypertension Atrial fibrillation I48.91 Atrial fibrillation type: unspecified Venous stasis ulcer of left lower extremity I83.029; L97.929 Hypothyroidism E03.9 Hypothyroidism type: acquired Anemia D64.9
--- NOTE | 2021-11-07 14:20 | Coding Query ---
PRESENT ON ADMISSION QUERY To promote full compliance with coding requirements relating to pateint care, physician participation is requested in all cases of die trimmer uncertainty. Please assist us with the question(s) below: Please place an X within the parenthesis (x). The following diagnosis listed in this patient's medical record require physician assistance to determine if they were present on admission (POA) or not. Please advise for each diagnosis whether it was present on admission, not present on admission, or if it was clinically undetermined. 1. ACUTE KIDNEY INJURY (documentation begins on the 10/05/21 Nephrology Consultation through Discharge Summary) ( ) Present On Admission (X) Not Present On Admission ( ) Clinically Undetermined Thank you Lenore Younger *Definition of the present on admission (POA)-Present on admission is defined as present at the time the order for inpatient admission occurs. Conditions that develop during an outpatient encounter prior to a written order for inpatient admission (including emergency department, observation, or outpatient surgery) are considered present on admission. ALEJOD
== END 2021-10-29 15:52 | DRG 291 ==
LOC: ED 16:09 → EDINP 19:12 → SUATTDRO 19:12 → 1E 21:30 → 2N 10-06 23:19 → 2S 10-11 09:56 → 3W 10-13 09:14